=== PATIENT | male | born 1980 | race American Indian/Alaskan Native ===

== ENCOUNTER 2016-12-21 20:21 | Inpatient (IN) | payer BC ==
[2016-12-21 20:21] VITALS: PULSE 78; BMI 46.2
--- NOTE | 2016-12-21 21:20 | ED PDOC ---
Arrival/HPI - General Chief Complaint: Abdominal Pain Time Seen by Provider: 12/21/16 21:00 Historian: Patient - History of Present Illness Narrative History of Present Illness (Text): 12/21/16 21:20 A 36 year old male, whose past medical history includes hypertension, hyperlipidemia, CHF, pancreatitis and renal insufficiency, presents to the emergency department complaining of urinary retention for 1 day. Patient notes nausea, non-bilious non-bloody vomiting, loss of appetite and chronic diffuse abdominal pain. Patient reports his symptoms feel similar in quality to previous pancreatitis flare ups. Patient denies any fever, diarrhea, chest pain , shortness of breath or any other complaints. PMD: Dr. Santiago Past Medical History - Provider Review Nursing Documentation Reviewed: Yes - Past History Past History: Non-Contributing - Infectious Disease Hx of Infectious Diseases: None - Tetanus Immunization Tetanus Immunization: Unknown - Cardiac Hx Cardiac Disorders: Yes (cardiomyopathy) Hx Congestive Heart Failure: Yes Hx Hypertension: Yes - Pulmonary Hx Respiratory Disorders: No Hx Asthma: No Hx Sleep Apnea: No - Neurological Hx Neurological Disorder: No - HEENT Hx HEENT Disorder: No - Renal Hx Renal Disorder: Yes Hx Kidney Stones: Yes Hx Renal Failure: Yes - Endocrine/Metabolic Hx Endocrine Disorders: No Hx Diabetes Mellitus Type 2: No - Hematological/Oncological Hx Blood Disorders: No - Integumentary Hx Dermatological Disorder: No - Musculoskeletal/Rheumatological Hx Musculoskeletal Disorders: No Hx Falls: No - Gastrointestinal Hx Gastrointestinal Disorders: Yes Hx Diverticulitis: Yes Hx Gastroesophageal Reflux: Yes Hx Pancreatitis: Yes - Genitourinary/Gynecological Hx Genitourinary Disorders: Yes (urinary retention) - Psychiatric Hx Psychophysiologic Disorder: No Hx Substance Use: No - Past Surgical History Past Surgical History: No Previous - Surgical History Hx Cholecystectomy: Yes - Anesthesia Hx Anesthesia: Yes Hx Anesthesia Reactions: No Hx Malignant Hyperthermia: No - Suicidal Assessment Feels Threatened In Home Enviroment: No Family/Social History - Physician Review Nursing Documentation Reviewed: Yes Family/Social History: No Known Family HX Smoking Status: Heavy Smoker > 10 Cigarettes Daily Hx Alcohol Use: No Hx Substance Use: No Hx Substance Use Treatment: No Allergies/Home Meds Allergies/Adverse Reactions: Allergies LUZ Inhibitors Allergy (Verified 11/09/16 12:51) ANGIOEDEMA Home Medications: Home Meds Medication Instructions Recorded Confirmed Pantoprazole Sodium [Protonix] 40 mg PO DAILY 02/10/12 12/21/16 Carvedilol [Coreg] 12.5 mg PO BID 05/02/12 12/21/16 Hydromorphone HCl [Dilaudid] 2 mg PO TID PRN 12/07/15 12/21/16 Furosemide [Lasix] 40 mg PO DAILY 04/29/16 12/21/16 Spironolactone [Aldactone] 25 mg PO DAILY 04/29/16 12/21/16 Amylase/Lipase/Protease [Pancrease 3 tab PO AC 10/07/16 12/21/16 [id number] [id number] U] Valsartan 40 mg PO DAILY 10/07/16 12/21/16 Famotidine [Pepcid] 20 mg PO DAILY 11/03/16 12/21/16 Review of Systems - Physician Review All systems were reviewed & negative as marked: Yes - Review of Systems Constitutional: absent: Fevers Respiratory: absent: SOB Cardiovascular: absent: Chest Pain Gastrointestinal: Abdominal Pain, Nausea, Vomiting, Appetite Changes. absent: Diarrhea Genitourinary Male: Other (Urinary retention) Physical Exam Vital Signs Reviewed: Yes Vital Signs Temp Pulse Resp BP Pulse Ox 12/22/16 00:21 98.2 F 67 17 133/86 98 12/21/16 20:34 97.5 F L 66 18 142/84 99 Temperature: Afebrile Blood Pressure: Normal Pulse: Regular Respiratory Rate: Normal Appearance: Positive for: Well-Appearing, Non-Toxic, Comfortable, Other (Obese male) Pain Distress: None Mental Status: Positive for: Alert and Oriented X 3 - Systems Exam Head: Present: Atraumatic, Normocephalic Pupils: Present: PERRL Extroacular Muscles: Present: EOMI Conjunctiva: Present: Normal Mouth: Present: Moist Mucous Membranes Neck: Present: Normal Range of Motion Respiratory/Chest: Present: Clear to Auscultation, Good Air Exchange. No: Respiratory Distress, Accessory Muscle Use Cardiovascular: Present: Regular Rate and Rhythm, Normal S1, S2. No: Murmurs Abdomen: Present: Normal Bowel Sounds. No: Tenderness, Distention, Peritoneal Signs Back: Present: Normal Inspection Upper Extremity: Present: Normal Inspection. No: Cyanosis, Edema Lower Extremity: Present: Normal Inspection. No: Edema Neurological: Present: GCS=15, CN II-XII Intact, Speech Normal Skin: Present: Warm, Dry, Normal Color. No: Rashes Psychiatric: Present: Alert, Oriented x 3, Normal Insight, Normal Concentration Medical Decision Making ED Course and Treatment: 12/21/16 21:20 Impression: A 36 year old male with urinary retention. Patient notes nausea, vomiting, loss of appetite and diffuse abdominal pain. Plan: -- Labs -- Blood and Urine culture -- Urinalysis -- Morphine, Pepcid, IV fluids and Zofran -- Reassess and disposition Progress Notes: 12/21/16 22:15 Labs reviewed, pt with chronic renal insufficiency at baseline. Lipase normal. Dr. Pamela greene. pt states morphine didnt help, asking for dilaudid. 12/21/16 22:[address] Santiago, who is aware and agrees with plan. Accepts pt in to her service. Pt admitted [facility] for intractable abdominal pain. Pt is no acute distress. Discussed results and hospital admission plan with pt, who is aware and verbalizes understanding. 12/22/16 16:11 - Lab Interpretations Lab Results: 12/21/16 21:20 12/21/16 21:20 Lab Results 12/21/16 21:20: WBC 8.6, RBC 4.57, Hgb 15.5, Hct 44.8, MCV 98.0, MCH 33.9, MCHC 34.6, RDW 14.0, Plt Count 286, MPV 9.8, Gran % 78.7 H, Lymph % (Auto) 14.1 L, Blount % (Auto) 7.1 H, Eos % (Auto) 0.1 L, Baso % (Auto) 0.0, Gran # 6.79 H, Lymph # 1.2, Blount # 0.6, Eos # 0.0, Baso # 0.00, Sodium 136, Potassium 4.4, Chloride 98, Carbon Dioxide 27, Anion Gap 15, BUN 29 H, Creatinine 2.0 H, Est GFR ( Amer) 45, Est GFR (Non-Af Amer) 38, Random Glucose 121 H, Calcium 10.7 H, Total Bilirubin 0.8, AST 32, ALT 19, Alkaline Phosphatase 83, Total Protein 9.8 H, Albumin 4.9 H, Globulin 4.9, Albumin/Globulin Ratio 1.0 L, Lipase 279 I have reviewed the lab results: Yes - Medication Orders Current Medication Orders: Acetaminophen (Tylenol 325mg Tab) 650 mg PO Q6H PRN PRN Reason: Fever >100.4 F Carvedilol (Coreg) 12.5 mg PO BID [facility] Last Admin: 12/22/16 09:52 Dose: 12.5 MG Hydromorphone HCl (Dilaudid) 2 mg IVP Q4H PRN PRN Reason: Pain, moderate (4-7) Last Admin: 12/22/16 15:58 Dose: 2 MG MAR Pain Assessment Document 12/22/16 15:58 TAV (Rec: 12/22/16 15:59 TAV [id number]) Pain Reassessment Is this a pain reassessment? No Presence of Pain Presence of Pain Yes Pain Scale Used Pain Scale Used Numeric Location Upper or Lower Lower Pain Location Body Site Abdomen Back Description Description Constant Intensity of Pain at present 8 Pain Behavior Moaning Guarding Aggravating Factors Changing Position Alleviating Factors/Management Medication Techniques Alleviating Factors Medication IVP Administration Document 12/22/16 15:58 TAV (Rec: 12/22/16 15:59 TAV [id number]) Charges for Administration # of IVP Administrations 1 Sodium Chloride (Sodium Chloride 0.45%) 1,000 mls @ 125 mls/hr IV .Q8H [facility] Last Admin: 12/22/16 16:03 Dose: 125 MLS/HR eMAR Start Stop Document 12/22/16 16:03 TAV (Rec: 12/22/16 16:03 TAV [id number]) Intravenous Solution Start Date 12/22/16 Start Time 16:03 Ondansetron HCl (Zofran Inj) 4 mg IVP Q6H PRN PRN Reason: Nausea/Vomiting Last Admin: 12/22/16 15:59 Dose: 4 MG IVP Administration Document 12/22/16 15:59 TAV (Rec: 12/22/16 15:59 TAV [id number]) Charges for Administration # of IVP Administrations 1 Pantoprazole Sodium (Protonix Inj) 40 mg IVP DAILY [facility] Last Admin: 12/22/16 09:53 Dose: 40 MG IVP Administration Document 12/22/16 09:53 TAV (Rec: 12/22/16 09:53 TAV [id number]) Charges for Administration # of IVP Administrations 1 Spironolactone (Aldactone) 25 mg PO DAILY [facility] Last Admin: 12/22/16 09:53 Dose: 25 MG Zolpidem Tartrate (Ambien) 10 mg PO HS [facility] PRN Reason: Protocol Last Admin: 12/22/16 00:18 Dose: 10 MG Behavioural Document 12/22/16 00:18 MR (Rec: 12/22/16 00:18 MR [id number]) Maintenance Maintenance Dose Yes Discontinued Medications Famotidine (Pepcid) 20 mg IVP STAT STA Stop: 12/21/16 21:22 Last Admin: 12/21/16 21:46 Dose: 20 MG IVP Administration Document 12/21/16 21:46 MR (Rec: 12/21/16 21:46 MR [id number]) Charges for Administration # of IVP Administrations 1 Hydromorphone HCl (Dilaudid) 1 mg IVP STAT STA Stop: 12/21/16 22:29 Last Admin: 12/21/16 22:40 Dose: 1 MG IVP Administration Document 12/21/16 22:40 MR (Rec: 12/21/16 22:40 MR [id number]) Charges for Administration # of IVP Administrations 1 Hydromorphone HCl (Dilaudid) 2 mg IVP Q4H PRN PRN Reason: Pain, moderate (4-7) Hydromorphone HCl (Dilaudid) 1 mg IVP Q4H PRN PRN Reason: Pain, moderate (4-7) Last Admin: 12/22/16 12:18 Dose: 1 MG MAR Pain Assessment Document 12/22/16 12:18 TAV (Rec: 12/22/16 12:19 [facility] Pain Reassessment Is this a pain reassessment? No Presence of Pain Presence of Pain Yes Pain Scale Used Pain Scale Used Numeric Location Left, Right or Bilateral Left Upper or Lower Lower Pain Location Body Site Back Description Description Constant Intensity of Pain at present 8 Pain Behavior Moaning Aggravating Factors Changing Position Alleviating Factors/Management Medication Techniques Alleviating Factors Medication IVP Administration Document 12/22/16 12:18 TAV (Rec: 12/22/16 12:19 TAV [facility] Charges for Administration # of IVP Administrations 1 Re-Assess: MAR Pain Assessment Document 12/22/16 13:18 TAV (Rec: 12/22/16 14:21 TAV [email or web address]) Pain Reassessment Is this a pain reassessment? Yes Presence of Pain Presence of Pain No Sodium Chloride (Sodium Chloride 0.9%) 1,000 mls @ 150 mls/hr IV .Q6H40M [facility] Last Admin: 12/21/16 21:46 Dose: 150 MLS/HR eMAR Start Stop Document 12/21/16 21:46 MR (Rec: 12/21/16 21:46 MR [id number]) Intravenous Solution Start Date 12/21/16 Start Time 21:46 Sodium Chloride (Sodium Chloride 0.45%) 1,000 mls @ 100 mls/hr IV .Q10H [facility] Morphine Sulfate (Morphine) 4 mg IVP STAT STA Stop: 12/21/16 21:22 Last Admin: 12/21/16 21:45 Dose: 4 MG [facility] Pain Assessment Document 12/21/16 21:45 MR (Rec: 12/21/16 21:46 MR [id number]) Pain Reassessment Is this a pain reassessment? No Sleep Is patient sleeping during reassessment? No Presence of Pain Presence of Pain Yes Pain Scale Used Pain Scale Used Numeric Location Pain Location Body Site Abdomen Back Description Description Constant Intensity of Pain at present 10 Duration Monday Pain Behavior Facial Grimacing Alleviating Factors/Management Medication Techniques Alleviating Factors Medication IVP Administration Document 12/21/16 21:45 MR (Rec: 12/21/16 21:46 MR [id number]) Charges for Administration # of IVP Administrations 1 Ondansetron HCl (Zofran Inj) 4 mg IV ONCE ONE Stop: 12/21/16 21:22 Last Admin: 12/21/16 21:46 Dose: 4 MG eMAR Start Stop Document 12/21/16 21:46 MR (Rec: 12/21/16 21:46 MR [id number]) Intravenous Solution Start Date 12/21/16 Start Time 21:46 End Date 12/21/16 End time 21:46 Total Infusion Time 0 - Scribe Statement The provider has reviewed the documentation as recorded by the Scribe Analilia Yang Provider Scribe Attestation: All medical record entries made by the Scribe were at my direction and personally dictated by me. I have reviewed the chart and agree that the record accurately reflects my personal performance of the history, physical exam, medical decision making, and the department course for this patient. I have also personally directed, reviewed, and agree with the discharge instructions and disposition. Disposition/Present on Arrival - Present on Arrival Any Indicators Present on Arrival: No History of DVT/PE: No History of Uncontrolled Diabetes: No Urinary Catheter: No History of Decub. Ulcer: No History Surgical Site Infection Following: None - Disposition Have Diagnosis and Disposition been Completed?: Yes Diagnosis: Renal insufficiency, Pancreatitis, chronic, Abdominal pain Disposition: HOSPITALIZED Disposition Time: 23:00 Patient Plan: Admission Patient Problems: Current Active Problems Problem Status Diagnosed Dehydration Acute Nephrolithiasis Acute Pancreatitis, chronic Acute Renal failure Acute Renal insufficiency Acute Condition: STABLE
[2016-12-21] MEDS ORDERED: Morphine 4 mg/ml ISec IVP STA (21:21)
[2016-12-21] MEDS ORDERED: Sodium Chloride 0.9% 1,000 ML IV SCH (21:30)
[2016-12-21 21:47] LABS: ADD MANUAL DIFF? NO
[2016-12-21 21:51] LABS: EOS % 0.1 % (1.5-5.0); GRAN # 6.79 (1.4-6.5); GRAN % 78.7 % (50.0-68.0); HEMATOCRIT 44.8 % (42.0-52.0); LYMPH # 1.2 (1.2-3.4); LYMPH % 14.1 % (22.0-35.0); MEAN CORPUSCULAR HEMOGLOBIN 33.9 pg (25.0-35.0); MEAN CORPUSCULAR HGB CONC 34.6 g/dl (31.0-37.0); MEAN PLATELET VOLUME 9.8 fl (7.0-11.0); MONO # 0.6 (0.1-0.6); MONO % 7.1 % (1.0-6.0); PLATELET COUNT 286 [, 10^3/uL] (120.0-450.0); WHITE BLOOD COUNT 8.6 [, 10^3/ul] (4.5-11.0)
[2016-12-21 22:02] LABS: BILIRUBIN,TOTAL 0.8 mg/dL (0.2-1.3); CALCIUM 10.7 mg/dL (8.4-10.5); POTASSIUM 4.4 mmol/L (3.6-5.0); TOTAL PROTEIN 9.8 g/dL (5.8-8.3)
[2016-12-21] MEDS ORDERED: HYDROmorphone 1 mg/ml ISec IVP STA (22:28)
[2016-12-21] MEDS ORDERED: HYDROmorphone 2 mg/ml ISec IVP PRN (23:14)
[2016-12-21] MEDS ORDERED: Sodium Chloride 0.45% 1,000 ML IV SCH (23:15)
[2016-12-22] MEDS: Sodium Chloride 0.45% 1,000 ML IV SCH ×3 (00:12→16:03)
[2016-12-22] MEDS: HYDROmorphone 1 mg/ml ISec IVP PRN ×4 (00:18→12:18)
[2016-12-22 00:55] LABS: URINE APPEARANCE SLIGHT-CLOUDY (CLEAR); URINE BILIRUBIN MODERATE (NEGATIVE); URINE BLOOD LARGE (NEGATIVE); URINE COLOR DARK YELLOW (YELLOW); URINE GLUCOSE (UA) NEGATIVE (NEGATIVE); URINE KETONE TRACE mg/dL (NEGATIVE); URINE LEUKOCYTE ESTERASE TRACE Leu/uL (NEGATIVE); URINE PROTEIN 30 mg/dL (<30 mg/dL); URINE UROBILINOGEN 0.2 E.U./dL (<1 E.U./dL)
[2016-12-22 01:04] LABS: URINE BACTERIA OCC (NEG); URINE EPITHELIAL CELLS 0 - 2 /hpf (0-5); URINE RBC 15 - 20 /hpf (0-2)
[2016-12-22 07:39] LABS: BILIRUBIN,TOTAL 0.8 mg/dL (0.2-1.3); CALCIUM 9.8 mg/dL (8.4-10.5); POTASSIUM 4.3 mmol/L (3.6-5.0); TOTAL PROTEIN 8.4 g/dL (5.8-8.3)
--- NOTE | 2016-12-22 08:22 | HP ---
The patient is a 36-year-old black male, known to me from multiple previous admissions. He came to [facility] because of epigastric and abdominal pain. He was complaining of nausea. No diarrhea. He states he has been throwing up and has not been making much urine for the last 24 hours. Because of a previous experience, he was concerned , so he came to Emergency Room. Denies any fever or chills. No history of hemoptysis, no hematemesis, no rectal bleeding. He had similar feeling upon last admission too. PAST MEDICAL HISTORY: Significant for: 1. Recurrent pancreatitis, secondary to alcohol abuse. 2. Nonischemic cardiomyopathy. 3. Morbid obesity. 4. Hypertension. 5. Chronic bilateral leg edema. 6. Status post acute renal failure. ALLERGIES: HE IS ALLERGIC TO LISINOPRIL, ENALAPRIL, GIVES HIM LIP SWELLING. SOCIAL HISTORY: He is single, history of smoking, history of alcohol abuse in the past, uses prescri ption narcotics for his pain flareup. REVIEW OF SYSTEMS: Significant for decreased urination. Complained of nausea and epigastric discomf ort. PHYSICAL EXAMINATION: GENERAL: Not in any acute distress. VITAL SIGNS: He is afebrile, pulse 66, respirations 18, blood pressure 142/84. LUNGS: Bilateral fair airflow, no rhonchi or crackle. HEART: S1, S2 audible. ABDOMEN: Soft, obese, nontender, no rebound, no guarding. NEUROLOGIC: The patient is awake and alert, able to communicate. LABORATORY EXAMINATION: Sodium 136, potassium 4.4, chloride 98, CO2 27, BUN 29, creatinine 2.0, bloo d sugar of 121, calcium 10.7, total protein 9.8, albumin 4.9, globulin 4.9. ASSESSMENT: 1. Acute on chronic renal insufficiency. 2. Recurrent pancreatitis. 3. Hypertension. 4. Morbid obesity. 5. Status post recent cholecystectomy. PLAN: We will admit the patient. We will keep him n.p.o., give IV fluid. We will monitor electroly juan, CBC, CMP in a.m. Urology consult, nephrology consult and GI consult has been requested. Follow up his electrolytes in a.m. Sammy Santiago MD cc: [phone] TT: 12/22/2016 08:21:48 en
--- NOTE | 2016-12-22 13:49 | PN ---
DATE: 12/22/2016 The patient is a 36-year-old, seen and examined, doing a little better. He still has abdominal disco mfort, upper quadrant, right lower quadrant and left lower quadrant; does not feel hungry, not making much urine in spite of being on IV fluid. PHYSICAL EXAMINATION: VITAL SIGNS: He is afebrile, pulse 69, respirations 20, blood pressure 127/84. LUNGS: Bilateral fair airflow, no rhonchi or crackle. HEART: S1, S2 audible. ABDOMEN: Soft, obese, nontender, no rebound, no guarding. Deep palpable epigastric and right lower quadrant and left lower quadrant discomfort. NEUROLOGIC: The patient is awake and alert, communicative. LABORATORY EXAMINATION: Sodium 135, potassium 4.3, chloride 100, CO2 25, BUN 33, creatinine 2.1, blo od sugar of 98, calcium 10.7. Urinalysis showed moderate bilirubin, blood is large, trace ketones. ASSESSMENT: 1. Recurrent pancreatitis. 2. Acute on chronic renal failure. 3. Dehydration, prerenal azotemia. 4. Nonischemic cardiomyopathy. 5. Recent cholecystectomy. PLAN: We will continue patient on current IV fluids. Continue on his usual medications. I discusse d with Dr. Choe. The patient has appointment with ____ for second opinion. In the meantime, we will continue the patient on Zofran as needed. He is on Protonix. We will continue that. Bunny nue him on analgesic. Urology and nephrology consult have been requested. Sammy Santiago MD cc: [phone] TT: 12/22/2016 13:48:56 Confirmation # [id number] Dictation # [id number] tn
[2016-12-22] MEDS: HYDROmorphone 2 mg/ml ISec IVP PRN ×2 (15:58→20:02)
--- NOTE | 2016-12-22 21:11 | CON ---
DATE: 12/22/2016 CHIEF COMPLAINT: The patient not urinating for extended periods of time. HISTORY OF PRESENT ILLNESS: This is a 36-year-old male who has been admitted to the hospital multipl e times, according to the nurses, with similar complaints, usually pancreatitis and a complaint of no t having voided for more than 24 hours. He recently, on this admission, was admitted through the ER, saying that he had not urinated for 24 hours. He had no fever or chills. He complained of some abd ominal pain and was admitted, a Linares catheter apparently was placed. There was no record of how muc h was obtained when it was placed in the ER. PAST MEDICAL HISTORY: Significant for cardiomyopathy, recurrent pancreatitis, morbid obesity, renal insufficiency with baseline creatinine of 3 and a BUN in the 20s, and hypertension. ALLERGIES: HE HAS ALLERGIES TO LISINOPRIL, AND ENALAPRIL. SOCIAL HISTORY: He has a history of alcohol use in the past to access, history of smoking. FAMILY HISTORY: Noncontributory. REVIEW OF SYMPTOMS: No symptoms referable to the head, eyes, ears, nose, or throat. No current card iac or respiratory symptoms. No current gastrointestinal symptoms, particularly nausea or vomiting. Linares catheter is indwelling. PHYSICAL EXAMINATION: VITAL SIGNS: Show him to be afebrile, pulse 76, blood pressure 112/68. He is morbidly obese. Respi rations 20. ABDOMEN: There is CVA pain. No hepatosplenomegaly, rebound, or guarding. No suprapubic fullness. GENITALIA: Scrotum, testicles, cord, and epididymis normal. The Linares is anchored incorrectly to th e thigh, under tension with the disk that comes with the Linares catheter, causing the patient's discom fort and not allowing him to move his leg. He showed the nurses. The disk was removed and I told hi m to tape the tubing of the leg bag to give more redundancy so he is not uncomfortable. LABORATORY DATA: Shows a creatinine of 2.1 with a BUN of 33. His liver enzymes are normal. His alb umin is normal at 4.2. White count is also normal at 8600 with normal hemoglobin. The patient has h ad prior CAT scans, ultrasounds. IMPRESSION: He was seen in the office by my partner, approximately 6 weeks ago, where he had not sup posedly voided for 1 week and had 106 mL in his bladder. I do not think this urinary retention. I d o not think he needs a Linares catheter. I told the nurses to discontinue the Linares catheter in the a. m. He has had renal ultrasounds and CAT scans done last month, which showed nonobstructing stones. I do not think this is on the basis of obstruction. I recommend a renal consult. Also discontinue t he Linares catheter in a.m. and the patient should not have a Linares catheter placed without having a bl adder scan first showing more than 300 mL. I do not think he needs it. In terms of why he is not ma vanessa significant urine, whether this is anasarca or whether it is due to his cardiac issues, can be e valuated by renal and suggested a Nephrology consult. Juan José Lange MD cc: [phone] TT: 12/22/2016 21:11:01 Confirmation # [id number] Dictation # [id number] ln
[2016-12-23] MEDS: Sodium Chloride 0.45% 1,000 ML IV SCH ×2 (00:05→09:16)
[2016-12-23] MEDS: HYDROmorphone 2 mg/ml ISec IVP PRN ×6 (00:06→21:44)
--- NOTE | 2016-12-23 09:23 | CON ---
DATE: 12/22/2016 REASON FOR CONSULTATION: Abdominal pain. HISTORY OF PRESENT ILLNESS: This is a 36-year-old patient with a past medical history of chronic abd ominal pain, possible gastroparesis, pancreatitis, history of ETOH in the past. Admitted with worsen ing abdominal pain, weakness. Nausea, unable to keep food down. The patient was found to be acute k idney injury with creatinine elevated at 2.0 and GI consult was requested to evaluate for abdominal p ain. This patient is well known to our service with multiple admissions in the hospital. The patien t was also followed at the [place]. The patient has an appointment to see Dr. Gabriel at [facility] on Monday. The patient also has a history of chronic edema. ALLERGIES: HE IS ALLERGIC TO LISINOPRIL, ENALAPRIL. SOCIAL HISTORY: Presently, no smoking, no alcohol. History of ETOH in the past. REVIEW OF SYSTEMS: Positive as above. Other systems reviewed. PHYSICAL EXAMINATION: GENERAL: The patient is lying on the bed, not in acute distress. VITAL SIGNS: Temperature is 98.8, blood pressure is 127/84. HEENT: Atraumatic, anicteric. NECK: Supple. HEART: S1, S2 heard. LUNGS: Bilateral air entry present. ABDOMEN: Soft. The patient had multiple imaging studies in the past. IMPRESSION: This is a 36-year-old patient with possible chronic pancreatitis, status post cholecyste ctomy for gallstones, history of chronic anemia, possible gastroparesis, admitted with nausea, vomiti ng and abdominal pain with acute kidney injury. The reasonable thing to consider at this point is __ ___ proton pump inhibitor. The patient would need to be followed at the tertiary care institution in view of the chronicity of the symptoms and follow up there to further evaluate the symptomatology. Souleymane Choe MD cc: [phone] TT: 12/23/2016 09:22:40 Confirmation # [id number] Dictation # [id number] en
[2016-12-23 12:37] LABS: CALCIUM 9.3 mg/dL (8.4-10.5); POTASSIUM 3.8 mmol/L (3.6-5.0); TOTAL PROTEIN 7.6 g/dL (5.8-8.3)
--- NOTE | 2016-12-23 12:57 | DS ---
SUBJECTIVE: The patient is a 36-year-old seen and examined, does not have significant pain; however, he does not have good appetite, tolerated clear liquid. PHYSICAL EXAMINATION: VITAL SIGNS: He is afebrile, pulse 62, respirations 20, blood pressure 125/92. LUNGS: Bilateral fair airflow, no rhonchi or crackle. HEART: S1, S2 audible. No murmur. ABDOMEN: Soft, nontender, no rebound, no guarding. NEUROLOGIC: He is awake and alert, communicative. EXTREMITIES: Bilateral legs, no edema. LABORATORY: Test is pending. ASSESSMENT: 1. Recurrent pancreatitis. 2. Acute on chronic renal failure. 3. Hypertension. 4. Morbid obesity. 5. Status post cholecystectomy. PLAN: We will start him on 2 g sodium, pureed diet and see the response. His catheter has been daisy erik after he voided, and if he voids and his creatinine is better, we can discharge him. He has an a ppointment with on Monday morning. He has been given all the information to get a second o kate and further management. Sammy Santiago MD cc: [phone] TT: 12/23/2016 12:57:15 liam
--- NOTE | 2016-12-23 14:25 | CON ---
DATE: 12/23/2016 The patient admitted for Dr. Santiago. REFERRING PHYSICIAN: Dr. Santiago REASON FOR CONSULTATION: Evaluation of a patient known to us, who presents with acute renal failure in the setting of abdominal pain, nausea, vomiting and difficulty urinating. HISTORY OF PRESENT ILLNESS: The patient is a 36-year-old black male with a history of acute pancreat itis, history of chronic pancreatitis, history of chronic abdominal pain, history of multiple admissi ons for acute renal failure thought to be secondary to volume depletion, history of nonischemic cardi omyopathy, ejection fraction 40% with mitral regurgitation on diuretic therapy, history of morbid obe sity, history of hypertension, history of nephrosclerosis, history of a complex cystic mass left kidn ey being followed by urology, status post recent gallbladder surgery. The patient once again present ed to the hospital with abdominal pain, nausea and vomiting. He was noted to have an elevated BUN an d creatinine of 29/2.0. The patient had received IV fluid hydration. A Linares catheter was placed. His sodium level had dropped from 136 to 130. His BUN has dropped from 29 to 27. Creatinine is down to 1.7. The patient's baseline creatinine is in the 1.3-1.4 range. The patient is concerned about his inability to urinate. His Linares catheter was removed. PAST MEDICAL HISTORY: Significant for acute on chronic pancreatitis, history of acute renal failure secondary to volume depletion, all these resolved. History of nonischemic cardiomyopathy, ejection f raction 47% with mitral regurgitation, history of obesity, hypertension, nephrolithiasis, history of a cystic mass left kidney and history of gallbladder surgery. MEDICATIONS AT HOME: Include that of valsartan, Aldactone, Protonix, Zofran, Dilaudid, Lasix, Pepcid , Coreg, and pancreatic enzymes. ALLERGIES: THE PATIENT IS ALLERGIC TO LUZ INHIBITORS. HE DEVELOPS ANGIOEDEMA. MEDICATIONS PRESENTLY IN HOSPITAL: Include that of half normal saline 125 mL an hour, Aldactone, Amb ien, Coreg, Dilaudid, Tylenol p.r.n. and Zofran p.r.n. SOCIAL HISTORY: The patient continues to smoke cigarettes. He smokes half a pack per day. He no lo nger drinks alcohol. The patient works for the [employer], but has been out of work because of illness. FAMILY HISTORY: Both parents are alive. Father has COPD secondary to cigarette smoking. The patien t does not know his mother's condition. REVIEW OF SYSTEMS: GENERAL: The patient states that his weight since last hospitalization is down 14 pounds secondary t o decreased appetite. ENT: Denies any hearing or visual problems. PULMONARY: No shortness of breath at rest. No history of asthma, bronchitis or pneumonia. CARDIAC: History of nonischemic cardiomyopathy, history of mitral regurgitation. Ejection fraction is 47%. GASTROINTESTINAL: Positive for chronic abdominal pain. Chronic pancreatitis, history of nausea and vomiting with exacerbations of his pancreatitis. GENITOURINARY: The patient states difficulty making urine. A Linares catheter was placed during the f irst part of the hospitalization and has been removed. The patient is not voiding as of yet. He has no history of significant chronic kidney disease. Baseline creatinine is in the 1.3 range. He does elevate his BUN and creatinine when he comes in volume depleted. ENDOCRINE: No history of diabetes. MUSCULOSKELETAL: No issues. NEUROLOGIC: No history of TIA, CVA, seizures or syncope. HEMATOLOGIC AND ONCOLOGIC: History of mild anemia in the past. PSYCHIATRIC: History is negative. PHYSICAL EXAMINATION: GENERAL: The patient is currently seen on 5R. He is sitting up in bed. He is distressed that he is not able to void since the Linares catheter was removed. He remains on hypotonic IV fluid hydration. VITAL SIGNS: Blood pressure is 125/92 ranging down to 112/68. Temperature is 98.1, pulse is 62. Re spiratory rate is 20 with an oxygen saturation of 99%. HEENT: Shows him to be normocephalic, atraumatic. Conjunctivae are pink. Sclerae are nonicteric. Pupils are equal, reactive to light and accommodation. Extraocular muscles are intact. Posterior ph arynx is normal. NECK: Supple, no neck vein distention, no thyromegaly, no lymphadenopathy, no bruits. CHEST: Clear to auscultation and percussion with no rales, no rhonchi, no wheezing. CARDIOVASCULAR: Shows a regular rate and rhythm with mitral regurgitation. No S3, no S4, no rub. ABDOMEN: Soft. Bowel sounds normal. Morbid obesity. No distention. He has mild tenderness on pal pation in all 4 quadrants. No rebound, no guarding. BACK: No CVAT, no spinal tenderness. EXTREMITIES: Show no cyanosis, no clubbing, no edema. Distal lower extremity pulses are 1-2+ bilate rally. NEUROLOGIC: Shows him to be alert, oriented x 3 with no gross focal, motor or sensory deficits. IMAGING: No imaging studies were done during present hospitalization. LABORATORIES: CBC: White blood cell count 8.6, hemoglobin 15.5 with a platelet count of 286,000. C oags were not done during present admission. Chemistries: Sodium was 136 on admission, it is down t o 130 presently. BUN is down from 29, as high as 33, down to 27 today. Creatinine 2.0, down to 1.7. Baseline creatinine is in the 1.3-1.4 range. Glucose is normal. Calcium 9.3, down from 10.7 on ad mission. Liver enzymes are normal. Albumin is 3.8. Lipase was 279 on admission. Amylase was not d one. Urinalysis showed trace ketones, blood in the urine, possibly secondary to Linares catheter. No significant urine white blood cells. MICROBIOLOGY: Urine cultures were negative. ASSESSMENT: 1. Once again, patient presents with mild acute renal failure superimposed on a patient with possibl e chronic kidney disease stage I/II. His baseline creatinine is in the 1.3-1.4 range. This is in th e setting of nausea, vomiting, abdominal pain, and decreased p.o. intake plus the continued intake of diuretic therapy. The patient had been using Lasix and Aldactone at home. The patient had also bee n on angiotensin receptor chava. The patient requires diuretic therapy for his nonischemic cardiom yopathy to prevent edema and congestive heart failure. The patient's angiotensin receptor chava wa s held. His loop diuretic was held, however, he remains on Aldactone. The patient had received hypo tonic IV fluid hydration during the hospitalization. The patient has had this similar presentation m ultiple times in the past. He usually responds to IV fluid hydration. 2. Inability to make urine. The patient followed by urology. Linares catheter is out. Perhaps some bladder dysfunction. It is not renal failure that is causing the absence of urine. 3. History of acute on chronic pancreatitis. The patient has been seen by GI. History of alcohol u se in the past. 4. History of nonischemic cardiomyopathy, ejection fraction 47% with mitral regurgitation. The brad ent will need to remain on low dose diuretic therapy. He had been on combination therapy in the outp atient setting to prevent hypokalemia. He also remains on low-dose angiotensin receptor chava ther apy for afterload reduction and treatment of hypertension. 5. Past history of gastritis, duodenitis and diverticulitis. No apparent issue at this point in jose kim. 6. History of kidney stones, nonobstructive. No imaging studies done this time. History of a cysti c mass left kidney, being followed by urology. In all likelihood, he will have repeat radiographic s tudies done as an outpatient. 7. Hypertension. Blood pressure controlled on present medical therapy. 8. Hyponatremia, likely iatrogenic as patient had received hypotonic fluids during the hospitalizati on. PLAN: 1. Does not appear that patient will be discharged today. 2. I will start patient on normal saline at a lower rate to help correct the hyponatremia and to pre vent any volume overload. 3. The patient may remain off Lasix therapy until his BUN and creatinine fall back to normal. 4. The patient may remain on low dose Aldactone therapy. 5. Once his BUN and creatinine fall back to baseline range, creatinine of 1.3, patient may be restar bess back on angiotensin receptor chava therapy. 6. Monitor closely for urine output. If patient does not make any urine, perhaps bedside bladder ul trasound and replacement of a Linares catheter. This decision will be made by his urologist, Dr. Lange. 7. Continue to follow labs closely during hospitalization. 8. Case discussed with Dr. Santiago in detail. Sean Reich MD cc: [id number] TT: 12/23/2016 14:25:02 Confirmation # [id number] Dictation # [id number]
[2016-12-23] MEDS: Sodium Chloride 0.9% 1,000 ML IV SCH (15:03)
[2016-12-24] MEDS: HYDROmorphone 2 mg/ml ISec IVP PRN ×6 (01:38→22:44)
[2016-12-24] MEDS: Sodium Chloride 0.9% 1,000 ML IV SCH (01:40)
[2016-12-24 08:08] VITALS: RESP 20
[2016-12-24 08:37] LABS: ALB/GLOB RATIO 0.9 (1.1-1.8); ALKALINE PHOSPHATASE 61 U/L (38-133); ALT/SGPT 15 U/L (7-56); AST/SGOT 23 U/L (15-59); BILIRUBIN,TOTAL 0.7 mg/dL (0.2-1.3); BLOOD UREA NITROGEN 18 mg/dL (7-21); CARBON DIOXIDE 23 mmol/L (21-33); CHLORIDE 98 mmol/L (98-107); GFR AFRICAN-AMERICAN > 60; GLUCOSE,RANDOM 77 mg/dL (70-110); MAGNESIUM 1.9 mg/dL (1.7-2.2); PHOSPHOROUS 3.5 mg/dL (2.5-4.5); POTASSIUM 3.8 mmol/L (3.6-5.0); SODIUM 129 mmol/L (132-148); TOTAL PROTEIN 7.2 g/dL (5.8-8.3)
[2016-12-24 08:42] LABS: HEMATOCRIT 33.6 % (42.0-52.0); MEAN CELL VOLUME 96.8 fL (80.0-105.0); MEAN CORPUSCULAR HEMOGLOBIN 33.1 pg (25.0-35.0); MEAN CORPUSCULAR HGB CONC 34.2 g/dl (31.0-37.0); MEAN PLATELET VOLUME 10.3 fl (7.0-11.0); RED CELL DISTRIBUTION WIDTH 13.8 % (11.5-14.5)
--- NOTE | 2016-12-24 10:28 | CP.PCM.PN ---
Subjective - Date & Time of Evaluation Date of Evaluation: 12/24/16 Time of Evaluation: 10:25 - Subjective Subjective: seen and examined still w/ naussea receiving zofran Objective - Vital Signs/Intake and Output Vital Signs (last 24 hours): Temp Pulse Resp BP Pulse Ox 97.6 F 60 20 138/86 100 12/24/16 08:00 12/24/16 09:38 12/24/16 08:00 12/24/16 09:38 12/24/16 08:00 Intake and Output: 12/24/16 12/24/16 06:59 18:59 Intake Total 1680 Output Total 1275 Balance 405 - Medications Medications: Current Medications Acetaminophen (Tylenol 325mg Tab) 650 mg PO Q6H PRN PRN Reason: Fever >100.4 F Carvedilol (Coreg) 12.5 mg PO BID [facility] Last Admin: 12/24/16 09:38 Dose: 12.5 mg Hydromorphone HCl (Dilaudid) 2 mg IVP Q4H PRN PRN Reason: Pain, moderate (4-7) Last Admin: 12/24/16 09:39 Dose: 2 mg Sodium Chloride (Sodium Chloride 0.9%) 1,000 mls @ 80 mls/hr IV .[id number] [facility] Last Admin: 12/24/16 01:40 Dose: 80 mls/hr Ondansetron HCl (Zofran Inj) 4 mg IVP Q6H PRN PRN Reason: Nausea/Vomiting Last Admin: 12/24/16 09:39 Dose: 4 mg Pantoprazole Sodium (Protonix Inj) 40 mg IVP DAILY [facility] Last Admin: 12/24/16 09:39 Dose: 40 mg Spironolactone (Aldactone) 25 mg PO DAILY [facility] Last Admin: 12/24/16 09:38 Dose: 25 mg Zolpidem Tartrate (Ambien) 10 mg PO HS [facility] PRN Reason: Protocol Last Admin: 12/23/16 22:49 Dose: 10 mg - Labs Labs: 12/24/16 08:03 12/24/16 08:03 - Constitutional Appears: Non-toxic - Head Exam Head Exam: ATRAUMATIC - Eye Exam Eye Exam: Normal appearance - ENT Exam ENT Exam: Normal Exam - Neck Exam Neck Exam: Normal Inspection - Respiratory Exam Respiratory Exam: NORMAL BREATHING PATTERN - Cardiovascular Exam Cardiovascular Exam: +S1, +S2 - GI/Abdominal Exam GI & Abdominal Exam: Normal Bowel Sounds - Extremities Exam Additional comments: no edema - Neurological Exam Neurological Exam: Alert, Oriented x3 - Psychiatric Exam Psychiatric exam: Normal Affect - Skin Skin Exam: Normal Color Assessment and Plan - Assessment and Plan (Free Text) Assessment: arf / pancreatitis / chf / anemia / hyponatremia Plan: JENNIFER resolving likely all prerenal Hyponatremia - likely an element of SIADH from nausea/vomitting. He is making more urine now - free water excretion should be improved. will check na again at 1 pm. if improving ok from my standpoint for discharge discussed w/ dr. santiago
[2016-12-24] MEDS: Amylase/Lipase/Protease 5,000 U ECC PO SCH ×2 (11:24→17:03)
--- NOTE | 2016-12-24 12:22 | PN ---
DATE: 12/24/2016 SUBJECTIVE: The patient is a 36-year-old, seen and examined, doing well, wants to eat. His pain see ms to be improving. He was able to void. PHYSICAL EXAMINATION: VITAL SIGNS: He is afebrile, pulse 55, respirations 20, blood pressure 138/86. LUNGS: Bilateral good airflow, no rhonchi or crackle. HEART: S1, S2 audible. No murmur. ABDOMEN: Soft, obese, nontender, no rebound, no guarding. NEUROLOGIC: He is awake and alert, communicative. LABORATORY EXAMINATION: WBC is 8.0, hemoglobin 11.5, hematocrit 33.6, platelets 196. Chemistry: So dium 129, potassium 3.8, chloride 98, CO2 23, BUN 18, creatinine 1.4. Blood sugar of 77. His urinal ysis shows moderate bilirubin, large blood, trace ketones. Cultures are negative. Blood cultures ar e negative. ASSESSMENT: 1. Recurrent pancreatitis. 2. Acute on chronic renal failure secondary to prerenal azotemia because of poor oral intake. 3. Status post cholecystectomy. 4. Morbid obesity. 5. Nonischemic cardiomyopathy. PLAN: We will continue patient on current medical treatment. We will continue on IV fluid. That chan s been reduced and we will start him on oral feeding if he tolerates. We will follow up his CBC and CMP in a.m. If his sodium improves and his creatinine clears up, he will be discharged in a.m. Sammy Santiago MD cc: [id number] TT: 12/24/2016 12:22:24 Confirmation # [id number] Dictation # [id number] tn
[2016-12-24 13:05] LABS: BLOOD UREA NITROGEN 16 mg/dL (7-21); CALCIUM 9.2 mg/dL (8.4-10.5); CARBON DIOXIDE 25 mmol/L (21-33); CHLORIDE 97 mmol/L (98-107); GFR AFRICAN-AMERICAN > 60; GLUCOSE,RANDOM 72 mg/dL (70-110); POTASSIUM 3.8 mmol/L (3.6-5.0); SODIUM 130 mmol/L (132-148)
[2016-12-25] MEDS: Sodium Chloride 0.9% 1,000 ML IV SCH (02:00)
[2016-12-25] MEDS: HYDROmorphone 2 mg/ml ISec IVP PRN ×4 (02:42→14:39)
[2016-12-25 07:00] LABS: HEMATOCRIT 33.6 % (42.0-52.0); MEAN CELL VOLUME 97.7 fL (80.0-105.0); MEAN CORPUSCULAR HEMOGLOBIN 33.4 pg (25.0-35.0); MEAN CORPUSCULAR HGB CONC 34.2 g/dl (31.0-37.0); MEAN PLATELET VOLUME 9.6 fl (7.0-11.0); RED CELL DISTRIBUTION WIDTH 13.8 % (11.5-14.5); WHITE BLOOD COUNT 6.8 [, 10^3/ul] (4.5-11.0)
[2016-12-25 07:20] LABS: ALKALINE PHOSPHATASE 59 U/L (38-133); ALT/SGPT 16 U/L (7-56); AST/SGOT 25 U/L (15-59); BILIRUBIN,TOTAL 0.4 mg/dL (0.2-1.3); BLOOD UREA NITROGEN 15 mg/dL (7-21); CALCIUM 8.8 mg/dL (8.4-10.5); CARBON DIOXIDE 26 mmol/L (21-33); CHLORIDE 98 mmol/L (98-107); GFR AFRICAN-AMERICAN > 60; GLUCOSE,RANDOM 97 mg/dL (70-110); SODIUM 133 mmol/L (132-148); TOTAL PROTEIN 7.2 g/dL (5.8-8.3)
[2016-12-25] MEDS: Amylase/Lipase/Protease 5,000 U ECC PO SCH ×2 (08:05→14:37)
--- NOTE | 2016-12-25 16:03 | DS ---
The patient is a 36-year-old, seen and examined lying in bed. He seems to be tolerating food. No na usea, vomiting, no diarrhea. PHYSICAL EXAMINATION: VITAL SIGNS: He is afebrile, pulse 64, respirations 20, blood pressure 120/68. LUNGS: Bilateral fair airflow, no rhonchi or crackle. HEART: S1, S2 audible. No murmur. ABDOMEN: Soft, nontender, no rebound, no guarding. NEUROLOGIC: He is awake and alert, communicative. LABORATORY EXAM: WBC 6.8, hemoglobin 11.5, hematocrit 33.6, platelet 207. Chemistry: Sodium 133, p otassium 4.0, chloride 98, CO2 26, BUN 15, creatinine 1.____, blood sugar of 97. ASSESSMENT AND PLAN: 1. Recurrent pancreatitis. 2. Acute renal failure, resolved. 3. Nonischemic cardiomyopathy. 4. Peptic ulcer disease. 5. Hypertension. 6. Hyponatremia. PLAN: The patient is currently tolerating food. Will discontinue IV fluid. Arrangement has been eulalio jewell to see Dr. Gabriel for a second opinion. He will be discharged home today and he will follow with Dr. Gabriel in the a.m. Sammy Santiago MD cc: [phone] TT: 12/25/2016 16:03:41 mt
[2016-12-25 16:15] VITALS: BP 125/84; PULSE 55; TEMP 98.4; O2SAT 98
--- NOTE | 2016-12-25 21:22 | PN ---
DATE: 12/25/2016 SUBJECTIVE: This patient is tolerating the diet, and abdominal pain, he states, is improving. The p atient is due to be discharged today. PHYSICAL EXAMINATION: VITAL SIGNS: Temperature 98.4, pulse 55, blood pressure is 125/84, respirations 20, O2 saturation 98 %. HEENT: Atraumatic, anicteric. NECK: Supple. HEART: S1, S2 heard. LUNGS: Bilateral air entry present. ABDOMEN: Soft. There is mild tenderness in the epigastric area. EXTREMITIES: No cyanosis, no clubbing. LABORATORY DATA: Hemoglobin 11.5, hematocrit 33.6, WBC 6.8, platelets 207. BUN is 15. Creatinine i s improved to 1.3. IMPRESSION: This is a 36-year-old patient with probable chronic pancreatitis, history of status post cholecystectomy, admitted with abdominal pain, acute kidney injury, on top of chronic kidney disease . The patient is clinically improving. The patient has an appointment to see at the [facility] regarding his pancreatitis and abdominal pain. The patient has been followed at the [facility] before. The patient did have a cholecystectomy for gallstones. [facility] and all the imaging studies are given to the patient. to continue to follow the patient an d suggest further management based on the clinical course. The patient is advised to follow up with the [facility] for another opinion regarding this chronic abdominal pain, pancreatitis. Adv ised to follow up in our office and advised to follow up with the Dr. Santiago. Souleymane Choe MD cc: [id number] TT: 12/25/2016 21:21:28 Confirmation # [id number] Dictation # [id number] [id number]
== END 2016-12-25 16:29 | disposition home or self-care (01) | DRG 439 ==
LOC: ED 20:21 → ERH 22:29 → 5RNO 12-22 02:35
PROVIDERS: ADMIT Internal Medicine; ATTEND Internal Medicine
DX: K86.1 Other chronic pancreatitis (principal); I42.8 Other cardiomyopathies; N17.9 Acute kidney failure, unspecified; Z68.42 Body mass index [BMI] 45.0-49.9, adult; E66.01 Morbid (severe) obesity due to excess calories; E87.1 Hypo-osmolality and hyponatremia; I12.9 Hypertensive chronic kidney disease with stage 1 through stage 4 chronic kidney disease, or unspecified chronic kidney disease; N18.2 Chronic kidney disease, stage 2 (mild); K27.9 Peptic ulcer, site unspecified, unspecified as acute or chronic, without hemorrhage or perforation; E86.0 Dehydration; Z88.8 Allergy status to other drugs, medicaments and biological substances; Z87.891 Personal history of nicotine dependence

== ENCOUNTER 2017-02-03 14:13 | Observation (INO) | payer BC ==
[2017-02-03 14:14] VITALS: PULSE 78
[2017-02-03 14:18] VITALS: BMI 47.5
[2017-02-03] MEDS ORDERED: Sodium Chloride 0.9% 1,000 ML IV STA ×2 (14:28→16:08)
--- NOTE | 2017-02-03 14:34 | ED PDOC ---
Arrival/HPI - General Chief Complaint: Abdominal Pain Time Seen by Provider: 02/03/17 14:25 Historian: Patient - History of Present Illness Narrative History of Present Illness (Text): 02/03/17 14:34 Patient is a 36 year old male whose past medical history includes recurrent pancreatitis, hypertension, and peptic ulcer disease, who presents to the emergency department with vomiting. Patient states he had a procedure by Dr. Gabriel at [facility] to "numbing his pancreas" and was told it would stop working after 2-3 months, but he also reports that he has followup with them again this month. Patient reports multiple episodes of vomiting and loose stool. He reports generalized abdominal pain consistent with prior episodes of pancreatitis. Also reports epistaxis that has now resolved. PMD: Dr. Santiago 02/03/17 15:39 Time/Duration: < week Symptom Onset: Gradual Symptom Course: Unchanged Modifying Factors (Text): None Associated Symptoms (Text): None Past Medical History - Provider Review Nursing Documentation Reviewed: Yes - Past History Past History: Non-Contributing - Infectious Disease Hx of Infectious Diseases: None - Tetanus Immunization Tetanus Immunization: Unknown - Cardiac Hx Cardiac Disorders: Yes (cardiomyopathy) Hx Congestive Heart Failure: Yes Hx Hypertension: Yes - Pulmonary Hx Respiratory Disorders: No Hx Asthma: No Hx Sleep Apnea: No - Neurological Hx Neurological Disorder: No - HEENT Hx HEENT Disorder: No - Renal Hx Renal Disorder: Yes Hx Kidney Stones: Yes Hx Renal Failure: Yes - Endocrine/Metabolic Hx Endocrine Disorders: No - Hematological/Oncological Hx Blood Disorders: No - Integumentary Hx Dermatological Disorder: No - Musculoskeletal/Rheumatological Hx Musculoskeletal Disorders: No - Gastrointestinal Hx Gastrointestinal Disorders: Yes Hx Diverticulitis: Yes Hx Gastroesophageal Reflux: Yes Hx Pancreatitis: Yes - Genitourinary/Gynecological Hx Genitourinary Disorders: Yes (urinary retention) - Psychiatric Hx Psychophysiologic Disorder: No Hx Substance Use: No - Past Surgical History Past Surgical History: No Previous - Surgical History Hx Cholecystectomy: Yes - Anesthesia Hx Anesthesia: Yes Hx Anesthesia Reactions: No Hx Malignant Hyperthermia: No - Suicidal Assessment Feels Threatened In Home Enviroment: No Family/Social History - Physician Review Nursing Documentation Reviewed: Yes Family/Social History: Unknown Family HX Smoking Status: Heavy Smoker > 10 Cigarettes Daily Hx Alcohol Use: No Hx Substance Use: No Hx Substance Use Treatment: No Allergies/Home Meds Allergies/Adverse Reactions: Allergies LUZ Inhibitors Allergy (Verified 11/09/16 12:51) ANGIOEDEMA Home Medications: Home Meds Medication Instructions Recorded Confirmed Pantoprazole Sodium [Protonix] 40 mg PO DAILY 02/10/12 02/03/17 Carvedilol [Coreg] 12.5 mg PO BID 05/02/12 02/03/17 Hydromorphone HCl [Dilaudid] 2 mg PO TID PRN 12/07/15 02/03/17 Furosemide [Lasix] 40 mg PO DAILY 04/29/16 02/03/17 Spironolactone [Aldactone] 25 mg PO DAILY 04/29/16 02/03/17 Amylase/Lipase/Protease [Pancrease 3 tab PO AC 10/07/16 12/21/16 26010 U-5000 U-[id number] U] Valsartan 40 mg PO DAILY 10/07/16 02/03/17 Famotidine [Pepcid] 20 mg PO DAILY 11/03/16 02/03/17 Review of Systems - Review of Systems Eyes: absent: Vision Changes ENT: Epistaxis (dried blood in R nare). absent: Hearing Changes Respiratory: absent: SOB, Cough, Sputum, Wheezing Cardiovascular: absent: Chest Pain, Palpitations Gastrointestinal: Abdominal Pain, Stool Changes, Diarrhea, Vomiting. absent: Constipation Genitourinary Male: absent: Dysuria Musculoskeletal: absent: Back Pain Skin: absent: Rash Neurological: absent: Headache, Dizziness Endocrine: absent: Diaphoresis Psychiatric: absent: Depression Physical Exam Vital Signs Reviewed: Yes Vital Signs Temp Pulse Resp BP Pulse Ox 02/03/17 16:13 68 18 139/93 H 100 02/03/17 14:14 97.5 F L 74 16 139/91 H 96 Temperature: Afebrile Blood Pressure: Normal Pulse: Regular Respiratory Rate: Normal Appearance: Positive for: Well-Appearing, Non-Toxic, Comfortable Pain Distress: None Mental Status: Positive for: Alert and Oriented X 3 - Systems Exam Head: Present: Atraumatic, Normocephalic Pupils: Present: PERRL Extroacular Muscles: Present: EOMI Conjunctiva: Present: Normal Mouth: Present: Moist Mucous Membranes Neck: Present: Normal Range of Motion Respiratory/Chest: Present: Clear to Auscultation, Good Air Exchange. No: Respiratory Distress, Accessory Muscle Use Cardiovascular: Present: Regular Rate and Rhythm, Normal S1, S2. No: Murmurs Abdomen: Present: Tenderness (Mild tenderness in all quadrants), Normal Bowel Sounds, Other (Actively vomiting). No: Distention, Peritoneal Signs, Rebound, Guarding Back: Present: Normal Inspection Upper Extremity: Present: Normal Inspection. No: Cyanosis, Edema Lower Extremity: Present: Normal Inspection. No: Edema Neurological: Present: GCS=15, CN II-XII Intact, Speech Normal Skin: Present: Warm, Dry, Normal Color. No: Rashes Psychiatric: Present: Alert, Oriented x 3, Normal Insight, Normal Concentration Medical Decision Making ED Course and Treatment: Impression: Patient is a 36 year old male whose past medical history includes recurrent pancreatitis, hypertension, and peptic ulcer disease, who presents to the emergency department with vomiting. Presentation consistent with prior episodes of pancreatitis Differential Diagnosis included but are not limited to: Plan: -- Zofran, Pain medication -- Labs -- Reassess and disposition Prior Visits: Notes and results from previous visits were reviewed. Patient last seen in the ED on 12/21/16 for urinary retention, abdominal pain and admitted for Renal insufficiency, Pancreatitis, chronic, Abdominal pain Progress Notes: 02/03/17 15:05 Elevated lactate 2.2 noted. Patient meets no SIRS criteria and elevated lactate likely secondary to dehydration. IVF infusing 02/03/17 16:19 Patient has intractable pain and is still unable to tolerate po. Spoke to Dr. santiago and will transfer to observation for IV hydration and anti-emetic and analgesic medication. - Lab Interpretations Lab Results: 02/03/17 14:30 02/03/17 14:30 Lab Results 02/03/17 14:30: Sodium 141, Chloride 102, Potassium 4.4, Carbon Dioxide 25, Anion Gap 18, BUN 29 H, Creatinine 1.4, Est GFR ( Amer) > 60, Est GFR ( Non-Af Amer) 57, Random Glucose 118 H, Calcium 10.6 H, Phosphorus 2.7, Magnesium 2.5 H, Total Bilirubin 1.3, AST 27, ALT 22, Alkaline Phosphatase 75, Total Protein 9.5 H, Albumin 4.7, Globulin 4.8, Albumin/Globulin Ratio 1.0 L, Lipase 209 02/03/17 14:30: pO2 38, VBG pH 7.43, VBG pCO2 41.0, VBG HCO3 27.2, VBG Total CO2 28.5 H, VBG O2 Sat (Calc) 76.6 H, VBG Base Excess 2.6 H, VBG Potassium 4.4, Sodium 141.0, Chloride 105.0, Glucose 121 H, Lactate 2.2 H, FiO2 21.0, Venous Blood Potassium 4.4 02/03/17 14:30: WBC 8.4 D, RBC 4.41, Hgb 15.0, Hct 43.7, MCV 99.1, MCH 34.0, MCHC 34.3, RDW 14.1, Plt Count 259, MPV 9.8, Gran % 70.5 H, Lymph % (Auto) 15.1 L, [place] % (Auto) 14.3 H, Eos % (Auto) 0.1 L, Baso % (Auto) 0.0, Gran # 5.92, Lymph # 1.3, [place] # 1.2 H, Eos # 0.0, Baso # 0.00 - Medication Orders Current Medication Orders: Sodium Chloride (Sodium Chloride 0.9%) 1,000 mls @ 100 mls/hr IV .Q10H STA Stop: 02/04/17 02:07 Ondansetron HCl (Zofran Inj) 4 mg IVP Q6H PRN PRN Reason: Nausea/Vomiting Discontinued Medications Hydromorphone HCl (Dilaudid) 2 mg IVP STAT STA Stop: 02/03/17 14:54 Last Admin: 02/03/17 14:59 Dose: 2 mg Sodium Chloride (Sodium Chloride 0.9%) 1,000 mls @ 999 mls/hr IV .Q1H1M STA Stop: 02/03/17 15:28 Last Admin: 02/03/17 14:30 Dose: 999 mls/hr Ondansetron HCl (Zofran Inj) 4 mg IVP STAT STA Stop: 02/03/17 14:30 Last Admin: 02/03/17 14:54 Dose: 4 mg ED OBSERVATION Date of observation admission: 02/03/17 Time of observation admission: 16:06 - Observation admission statement Patient is being placed in observation because:: abdominal pain and vomiting - Goals of Observation Goals of observation are:: pain medication, analgesia, anti-emetics, iv hydration - Scribe Statement The provider has reviewed the documentation as recorded by the Scribe Ovidio Mckeon Provider Scribe Attestation: All medical record entries made by the Jose A were at my direction and personally dictated by me. I have reviewed the chart and agree that the record accurately reflects my personal performance of the history, physical exam, medical decision making, and the department course for this patient. I have also personally directed, reviewed, and agree with the discharge instructions and disposition. Disposition/Present on Arrival - Present on Arrival Any Indicators Present on Arrival: No History of DVT/PE: No History of Uncontrolled Diabetes: No Urinary Catheter: No History of Decub. Ulcer: No History Surgical Site Infection Following: None - Disposition Have Diagnosis and Disposition been Completed?: Yes Diagnosis: Abdominal pain, Pancreatitis, chronic, Intractable abdominal pain, Intractable vomiting Disposition: HOSPITALIZED Disposition Time: 16:07 Patient Problems: Current Active Problems Problem Status Onset Abdominal pain Acute Pancreatitis, chronic Acute Condition: FAIR
[2017-02-03] MEDS ORDERED: HYDROmorphone 2 mg/ml ISec IVP STA ×2 (14:53→16:24)
[2017-02-03 14:54] LABS: ADD MANUAL DIFF? NO
[2017-02-03 15:00] LABS: VENOUS BLOOD GAS BASE EXCESS 2.6 mmol/L (0.0-2.0); VENOUS BLOOD PH 7.43 (7.32-7.43)
[2017-02-03 15:02] LABS: EOS % 0.1 % (1.5-5.0); GRAN # 5.92 (1.4-6.5); GRAN % 70.5 % (50.0-68.0); HEMATOCRIT 43.7 % (42.0-52.0); LYMPH # 1.3 (1.2-3.4); LYMPH % 15.1 % (22.0-35.0); MEAN CELL VOLUME 99.1 fL (80.0-105.0); MEAN CORPUSCULAR HGB CONC 34.3 g/dl (31.0-37.0); MEAN PLATELET VOLUME 9.8 fl (7.0-11.0); MONO # 1.2 (0.1-0.6); MONO % 14.3 % (1.0-6.0); PLATELET COUNT 259 10^3/uL (120.0-450.0); RED CELL DISTRIBUTION WIDTH 14.1 % (11.5-14.5); WHITE BLOOD COUNT 8.4 10^3/ul (4.5-11.0)
[2017-02-03 15:10] LABS: ALKALINE PHOSPHATASE 75 U/L (38-133); ALT/SGPT 22 U/L (7-56); AST/SGOT 27 U/L (15-59); BILIRUBIN,TOTAL 1.3 mg/dL (0.2-1.3); BLOOD UREA NITROGEN 29 mg/dL (7-21); CALCIUM 10.6 mg/dL (8.4-10.5); CARBON DIOXIDE 25 mmol/L (21-33); CHLORIDE 102 mmol/L (98-107); GFR AFRICAN-AMERICAN > 60; GLUCOSE,RANDOM 118 mg/dL (70-110); LIPASE 209 U/L (23-300); MAGNESIUM 2.5 mg/dL (1.7-2.2); PHOSPHOROUS 2.7 mg/dL (2.5-4.5); POTASSIUM 4.4 mmol/L (3.6-5.0); SODIUM 141 mmol/L (132-148); TOTAL PROTEIN 9.5 g/dL (5.8-8.3)
[2017-02-03] MEDS: Dextrose 5%/0.45% NS 1,000 ML IV SCH (17:25)
[2017-02-03 19:49] LABS: VENOUS BLOOD PH 7.45 (7.32-7.43)
--- NOTE | 2017-02-03 19:51 | HP ---
HISTORY OF PRESENT ILLNESS: The patient is a 36-year-old who came to Emergency Room because of incre asing abdominal pain, complaint of intractable nausea, unable to hold any food. Said it has been goi ng on for the last 2-3 days. The patient states he has not been eating that well, has been drinking, able to urinate. No constipation, no diarrhea. The patient was referred to information security specialist in [place], ____ who did nerve block and he states he felt better for a few weeks, but the pain came b ack. ALLERGIES: LUZ INHIBITORS. PAST MEDICAL HISTORY: Significant for: 1. Morbid obesity. 2. Hypertension. 3. Had acute kidney injury twice. 4. Chronic pancreatitis. 5. Peptic ulcer disease. MEDICATIONS AT HOME: He is on valsartan 320 daily, spironolactone 25 daily, Protonix 40 daily, Zofra n 4 mg q. 6 hours p.r.n., Dilaudid 2 mg t.i.d. p.r.n., Lasix 40 mg daily. He is on Coreg 12.5 twice a day. 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 REVIEW OF SYSTEMS: Significant for nausea. He complained of epigastric discomfort and nausea. PHYSICAL EXAMINATION: GENERAL: He is awake and alert, communicative. VITAL SIGNS: He is afebrile, pulse 102, respirations 20, blood pressure 142/____. LUNGS: Bilateral fair airflow, no rhonchi or crackle. HEART: S1, S2 audible. ABDOMEN: Soft, obese, nontender. Slight epigastric discomfort. No rebound, no guarding. NEUROLOGIC: He is awake and alert, communicative. LABORATORY DATA: WBC is 8.4, hemoglobin 15, hematocrit 43, platelets 259. Chemistry: Sodium 141, p otassium 4.4, chloride 102, CO2 25, BUN 29, creatinine 1.4, blood sugar 118, calcium 10.6. Magnesium 2.5. Total protein 9.5. ASSESSMENT: 1. Acute on chronic pancreatitis. 2. Peptic ulcer disease. 3. Morbid obesity. 4. Hypertension. 5. Nonischemic cardiomyopathy. 6. History of alcohol abuse in the remote past. PLAN: We will start patient on IV fluids, analgesic and start him on PPI. I will request Dr. Ramasa my to evaluate patient also. Will follow up electrolytes and keep him n.p.o. for now. We will reeva luate the patient in a.m. Sammy Santiago MD cc: [phone] TT: 02/03/2017 19:50:39 tana
[2017-02-03] MEDS ORDERED: Pneumococcal 23-Valent Vaccine IM ONE (20:29)
[2017-02-03] MEDS: HYDROmorphone 2 mg/ml ISec IVP PRN (20:31)
[2017-02-04] MEDS: HYDROmorphone 2 mg/ml ISec IVP PRN ×5 (00:48→21:17)
[2017-02-04 09:07] LABS: ADD MANUAL DIFF? NO
[2017-02-04 09:20] LABS: ALKALINE PHOSPHATASE 59 U/L (38-133); ALT/SGPT 22 U/L (7-56); AST/SGOT 28 U/L (15-59); BILIRUBIN,TOTAL 0.9 mg/dL (0.2-1.3); BLOOD UREA NITROGEN 27 mg/dL (7-21); CALCIUM 9.3 mg/dL (8.4-10.5); CARBON DIOXIDE 24 mmol/L (21-33); CHLORIDE 101 mmol/L (95-110); GFR AFRICAN-AMERICAN > 60; GLUCOSE,RANDOM 99 mg/dL (70-110); SODIUM 132 mmol/L (132-148); TOTAL PROTEIN 7.7 g/dL (5.8-8.3)
[2017-02-04 09:30] LABS: BASO # 0.01 K/mm3 (0.0-2.0); BASO % 0.1 % (0.0-3.0); EOS % 0.5 % (1.5-5.0); GRAN # 4.65 (1.4-6.5); GRAN % 57.8 % (50.0-68.0); LYMPH # 2.2 (1.2-3.4); LYMPH % 27.8 % (22.0-35.0); MEAN CELL VOLUME 99.2 fL (80.0-105.0); MEAN CORPUSCULAR HEMOGLOBIN 33.8 pg (25.0-35.0); MEAN PLATELET VOLUME 9.3 fl (7.0-11.0); MONO # 1.1 (0.1-0.6); MONO % 13.8 % (1.0-6.0); PLATELET COUNT 222 10^3/uL (120.0-450.0); RED CELL DISTRIBUTION WIDTH 14.2 % (11.5-14.5); WHITE BLOOD COUNT 8.1 10^3/ul (4.5-11.0)
[2017-02-04 09:31] LABS: HEMATOCRIT 37.6 % (42.0-52.0)
--- NOTE | 2017-02-04 11:44 | PN ---
DATE: 02/04/2017 The patient is a 36-year-old, seen and examined, lying in bed, complaining of epigastric pain. He st ates he had a couple of bouts of nausea and one time he saw blood and got scared. He also has nosebl eed, so he came to Emergency Room for evaluation He is still complaining of epigastric discomfort, b ut nausea seems to be subsiding. He does not feel hungry though. PHYSICAL EXAMINATION: VITAL SIGNS: He is afebrile, pulse 61, respirations 20, blood pressure 135/84. LUNGS: Bilateral fair airflow, no rhonchi or crackle. HEART: S1, S2 audible. ABDOMEN: Soft, slight epigastric discomfort. No rebound, no guarding. NEUROLOGIC: He is awake and alert, communicative, ambulatory. EXTREMITIES: Bilateral leg +1 edema. LABORATORY EXAMINATION: WBCs 8.1, hemoglobin 12.8, hematocrit 37.6, platelet 222. Chemistry: Sodiu m 132, potassium 4.0, chloride 101, CO2 24, BUN 27, creatinine 1.3, blood sugar of 99. LFTs are with in normal limits. ASSESSMENT: 1. Intractable nausea followed by hematemesis. 2. Acute on chronic pancreatitis. 3. Morbid obesity. 4. Hypertension. 5. Hyperlipidemia. 6. Multiple episodes of acute renal failure in the past. 7. Recent celiac nerve block by Dr. Gabriel PLAN: We will keep patient n.p.o. and give him GI rest. Continue IV fluids, PPI, analgesic as neede d. He is yet to be seen by Dr. Choe. Awaiting his input. Continue above mentioned treatment. Sammy Santiago MD cc: [phone] TT: 02/04/2017 11:43:59 Confirmation # [id number] Dictation # [id number] tn
[2017-02-04] MEDS: Dextrose 5%/0.45% NS 1,000 ML IV SCH (21:18)
[2017-02-05] MEDS: Dextrose 5%/0.45% NS 1,000 ML IV SCH ×2 (00:47→09:40)
[2017-02-05] MEDS: HYDROmorphone 2 mg/ml ISec IVP PRN ×4 (01:13→13:41)
[2017-02-05 09:51] VITALS: BP 122/70
[2017-02-05 10:24] LABS: ADD MANUAL DIFF? NO
[2017-02-05 10:31] LABS: BASO # 0.01 K/mm3 (0.0-2.0); BASO % 0.1 % (0.0-3.0); EOS # 0.1 (0.0-0.7); EOS % 1.5 % (1.5-5.0); GRAN # 4.65 (1.4-6.5); GRAN % 59.6 % (50.0-68.0); HEMATOCRIT 38.8 % (42.0-52.0); LYMPH # 2.2 (1.2-3.4); LYMPH % 28.7 % (22.0-35.0); MEAN CELL VOLUME 99.7 fL (80.0-105.0); MEAN CORPUSCULAR HEMOGLOBIN 33.4 pg (25.0-35.0); MEAN CORPUSCULAR HGB CONC 33.5 g/dl (31.0-37.0); MEAN PLATELET VOLUME 9.3 fl (7.0-11.0); MONO # 0.8 (0.1-0.6); MONO % 10.1 % (1.0-6.0); PLATELET COUNT 225 10^3/uL (120.0-450.0); RED CELL DISTRIBUTION WIDTH 14.1 % (11.5-14.5); WHITE BLOOD COUNT 7.8 10^3/ul (4.5-11.0)
[2017-02-05 11:31] VITALS: PULSE 58; RESP 19; TEMP 98; O2SAT 95
--- NOTE | 2017-02-05 15:09 | PN ---
DATE: 02/05/2017 The patient is a 36-year-old, seen and examined, doing well, ambulating. No nausea, vomiting, no antony rrhea. PHYSICAL EXAMINATION: VITAL SIGNS: He is afebrile, pulse 50, respirations 19, blood pressure 122/70. LUNGS: Bilateral fair airflow, no rhonchi or crackle. HEART: S1, S2 audible. ABDOMEN: Soft, obese, slight epigastric discomfort. NEUROLOGIC: He is awake and alert, communicative. LABORATORY EXAMINATION: WBCs 7.8, hemoglobin 13, hematocrit 38, platelets 225. Chemistry: Sodium 1 32, potassium 4.0, chloride 101, CO2 24, BUN 27, creatinine 1.3, blood sugar of 99. ASSESSMENT: 1. Recurrent pancreatitis. 2. Hypertension. 3. Hyperlipidemia. 4. Morbid obesity. 5. Status post cholecystectomy. 6. Status post celiac block. PLAN: We will advance patient's diet and if he remains asymptomatic, he can be discharged home later on today. Sammy Santiago MD cc: [phone] TT: 02/05/2017 15:09:01 Confirmation # [id number] Dictation # [id number] en
--- NOTE | 2017-02-06 08:43 | CON ---
DATE: 02/04/2017 This is a 36-year-old patient with a history of chronic pancreatitis, recently seen in [facility]. The patient had a celiac block done. The patient had significant improvement for nearly about 2 months since the celiac block. Now admitted with again abdominal pain, slowly worsening for the past 2-3 days. The patient had episodes of vomiting. No fever, no diarrhea. OTHER PAST MEDICAL HISTORY: Significant as above, morbid obesity, hypertension , coronary artery disease. Significant for acute on chronic kidney disease, kidney injury. Acute kidney disease, chronic kidney disease, acute. The patient has a history of acute chronic kidney injury. History of chronic pancreatitis, peptic ulcer disease, morbid obesity, diverticulosis. SOCIAL HISTORY: history ETOH, denies smoking. REVIEW OF SYSTEMS: Positive as above. Other systems reviewed. PHYSICAL EXAMINATION: GENERAL: The patient is lying on the bed, not in acute distress. VITAL SIGNS: Temperature 97.6, blood pressure 135/84, pulse ____, respirations 20. HEENT: Atraumatic, anicteric. NECK: Supple. HEART: S1, S2 heard. LUNGS: Bilateral air entry present. ABDOMEN: Soft. Tenderness present in the epigastric area. EXTREMITIES: Mild edema present. No cyanosis, no clubbing. NEUROLOGIC: Alert, oriented. Moves all the extremities. LABORATORY DATA: Hemoglobin 12.8, hematocrit 37.6, WBCs 8.1, platelets 222. Chemistry is essentially LFTs normal, BUN ____, creatinine ____. IMPRESSION: This 36-year-old patient now admitted with abdominal pain, nausea, vomiting. The patient has a history of gastroparesis. The patient is being followed by in [facility] for pain management. The patient's CT scan was reviewed. The patient's previous imaging studies were reviewed. RECOMMEND: 1. Clear liquid diet. 2. PPI. 3. Pancreatic enzyme supplements. 4. The patient is due to be followed at the [facility]. The patient did have a celiac block recently. He feels that it helped him a lot. For more than 2 months, he had significant improvement in the pain. We will continue to closely follow up his care and suggest further treatment based on the clinical course. Kovil V Дмитрий MD cc: [phone] TT: 02/05/2017 07:46:02 Confirmation # [id number] Dictation # [id number] en GEOVANNI
--- NOTE | 2017-02-06 08:44 | PN ---
DATE: 02/05/2017 ADDENDUM This patient was seen and evaluated earlier. The patient is now tolerating a clear liquid diet. No complaints. PHYSICAL EXAMINATION: VITAL SIGNS: Afebrile, vital signs stable. ABDOMEN: Soft. There is still some mild tenderness present in the epigastric area. HEART: S1, S2 heard. LUNGS: Bilateral air entry present. EXTREMITIES: Mild edema present. NEUROLOGIC: Alert, oriented. Moves all the extremities. LABORATORY DATA: LFTs are essentially unremarkable. BUN 27, creatinine is 1.7. IMPRESSION: Acute exacerbation of chronic pancreatitis. History of status post celiac block in the past, improved and now has recurrence of the symptoms. Morbid obesity, status post cholecystectomy. History of . RECOMMENDATIONS: Will advance the diet. The patient needs to be followed at the [facility] . The patient was strongly encouraged about it. Thank you very much for allowing us to participate in the care of the patient. Souleymane Choe MD cc: [phone] TT: 02/05/2017 18:31:15 Confirmation # [id number] Dictation # [id number] blue
--- NOTE | 2017-02-06 08:44 | CON ---
DATE: 02/04/2017 HISTORY OF PRESENT ILLNESS: This patient was seen and evaluated today. This is a 36-year-old patient with a history of chronic pancreatitis, status post cholecystectomy, history of EtOH in the past, history of morbid obesity, hypertension, history of acute kidney injury in the past twice, history of peptic ulcer disease, diverticulosis, admitted with further worsening of the abdominal pain for the past 3-4 days. The patient said that he was followed at the [facility], [facility], had a celiac block done which really helped a lot, for nearly 2 months he was doing great until this episode. The patient has an appointment to see them next week. The patient came to the hospital because of worsening of symptoms. Other past medical history as above. ALLERGIES: LUZ INHIBITORS. SOCIAL HISTORY: He is an ex-smoker, alcohol use. No smoking. REVIEW OF SYSTEMS: Positive as above. Other systems reviewed and negative. PHYSICAL EXAMINATION: GENERAL: The patient is lying on the bed, not in acute distress. VITAL SIGNS: Pulse 61, blood pressure is 135/84, afebrile, respirations 18. HEENT: Atraumatic, anicteric. NECK: Supple. HEART: S1, S2 heard. LUNGS: Bilateral air entry present. ABDOMEN: Soft. Tenderness present in the epigastric area. EXTREMITIES: Mild edema present. LABORATORY DATA: Hemoglobin is 12.8, hematocrit 37.6, WBC is 8.1, platelets 222. Chemistries: BUN 29, creatinine 1.4. ASSESSMENT/PLAN:This 36-year-old patient with chronic pancreatitis on pancreatic enzyme supplement, status post celiac block which appears to have helped for alleviating this pain, admitted with worsening of the symptoms for about 3-4 days. The patient appears to have acute exacerbation of the pancreatitis and is admitted with recurrent pancreatitis. The patient had episodes of vomiting multiple times and then he noticed the streaks of blood. This could be due to [place]. The reasonable thing at this period of time is to treat him conservatively and patient is better with IV fluids and tolerating the clear liquid diet and will slowly advance the diet. The patient was strongly encouraged to follow up at the [facility] and further follow up with doctor. Will continue to closely follow. Thank you very much for allowing me to participate in the care of the patient. Souleymane Choe MD cc: [phone] TT: 02/05/2017 20:54:53 Confirmation # [id number] Dictation # [id number] mn GEOVANNI
--- NOTE | 2017-03-22 22:37 | DS ---
ADDENDUM The patient is a 36-year-old who was admitted with abdominal discomfort and history of recurrent panc reatitis. 1. Hypertension. 2. Morbid obesity. The patient had nerve block done by as outpatient seems to be working. On 02/05, his diet was advanced. He started to tolerate so he was discharged home on 02/05. He will resume his medicat ion as prior to admission and he will follow up with as an outpatient. Sammy Santiago MD cc: [phone] TT: 03/22/2017 22:37:02 an
== END 2017-02-05 15:58 | disposition home or self-care (01) ==
LOC: ED 14:13 → EROBSV 16:06 → ERH 16:11 → 3RNO 17:09
PROVIDERS: ADMIT Internal Medicine; ATTEND Internal Medicine
DX: K85.90 Acute pancreatitis without necrosis or infection, unspecified (principal); K86.1 Other chronic pancreatitis; K31.84 Gastroparesis; K92.0 Hematemesis; I42.9 Cardiomyopathy, unspecified; I12.9 Hypertensive chronic kidney disease with stage 1 through stage 4 chronic kidney disease, or unspecified chronic kidney disease; N18.9 Chronic kidney disease, unspecified; E78.5 Hyperlipidemia, unspecified; E66.01 Morbid (severe) obesity due to excess calories; Z68.42 Body mass index [BMI] 45.0-49.9, adult; Z87.11 Personal history of peptic ulcer disease; Z87.891 Personal history of nicotine dependence
CPT/HCPCS: 36415; 80053; 82803; 83690; 83735; 84100; 85025; 96361; 96374; 96375; 96376; 99285; C9113; G0378; J1170; J2405; J7040; J7042

== ENCOUNTER 2017-05-01 15:48 | Inpatient (IN) | payer BC ==
[2017-05-01 15:49] VITALS: PULSE 78; BMI 47.5
--- NOTE | 2017-05-01 16:16 | ED PDOC ---
Arrival/HPI - General Chief Complaint: GI Problem Time Seen by Provider: 05/01/17 16:07 Historian: Patient - History of Present Illness Narrative History of Present Illness (Text): 05/01/17 16:12 36 y/o male, pmh including CHF/HTN/Pancreatitis/Peptic Ulcer Disease/Renal stone , History of alcohol abuse, had celiac block for chronic pancreatitis at [facility] back in 11/2016, c/o abdominal pain with nausea/vomiting x 1 day. Pt. stated that he has chronic pancreatitis, feels like the pain is coming back again, scheduled and due for the celiac block procedure. Pt. has 2 episodes of diarrhea today. Pt. stated that he has no headache or dizziness, no change in vision, no palpitation, no numbness or tingling, no other medical or psychological complaints. Past Medical History - Provider Review Nursing Documentation Reviewed: Yes - Past History Past History: Non-Contributing - Infectious Disease Hx of Infectious Diseases: None - Tetanus Immunization Tetanus Immunization: Unknown - Cardiac Hx Cardiac Disorders: Yes (cardiomyopathy) Hx Congestive Heart Failure: Yes Hx Hypertension: Yes - Pulmonary Hx Respiratory Disorders: No Hx Asthma: No Hx Sleep Apnea: No - Neurological Hx Neurological Disorder: No - HEENT Hx HEENT Disorder: No - Renal Hx Renal Disorder: Yes Hx Kidney Stones: Yes Hx Renal Failure: Yes - Endocrine/Metabolic Hx Endocrine Disorders: No - Hematological/Oncological Hx Blood Disorders: No - Integumentary Hx Dermatological Disorder: No - Musculoskeletal/Rheumatological Hx Falls: No - Gastrointestinal Hx Gastrointestinal Disorders: Yes (obese) Hx Diverticulitis: Yes Hx Gastroesophageal Reflux: Yes Hx Pancreatitis: Yes - Genitourinary/Gynecological Hx Genitourinary Disorders: Yes (urinary retention) - Psychiatric Hx Psychophysiologic Disorder: No Hx Substance Use: No - Past Surgical History Past Surgical History: No Previous - Surgical History Hx Cholecystectomy: Yes - Anesthesia Hx Anesthesia: Yes Hx Anesthesia Reactions: No Hx Malignant Hyperthermia: No - Suicidal Assessment Feels Threatened In Home Enviroment: No Family/Social History - Physician Review Nursing Documentation Reviewed: Yes Family/Social History: Unknown Family HX Smoking Status: Heavy Smoker > 10 Cigarettes Daily Hx Alcohol Use: No Hx Substance Use: No Hx Substance Use Treatment: No Allergies/Home Meds Allergies/Adverse Reactions: Allergies LUZ Inhibitors Allergy (Verified 11/09/16 12:51) ANGIOEDEMA Home Medications: Home Meds Medication Instructions Recorded Confirmed Pantoprazole Sodium [Protonix] 40 mg PO DAILY 02/10/12 05/01/17 Carvedilol [Coreg] 12.5 mg PO BID 05/02/12 05/01/17 Hydromorphone HCl [Dilaudid] 2 mg PO TID PRN 12/07/15 05/01/17 Furosemide [Lasix] 40 mg PO DAILY 04/29/16 05/01/17 Spironolactone [Aldactone] 25 mg PO DAILY 04/29/16 05/01/17 Amylase/Lipase/Protease [Pancrease 3 tab PO AC 10/07/16 05/01/17 14029 U-[id number] U] Valsartan 40 mg PO DAILY 10/07/16 05/01/17 Famotidine [Pepcid] 20 mg PO DAILY 11/03/16 05/01/17 Review of Systems - Review of Systems Constitutional: absent: Fatigue, Fevers Eyes: absent: Vision Changes ENT: absent: Hearing Changes Respiratory: absent: SOB, Cough Cardiovascular: absent: Chest Pain Gastrointestinal: Abdominal Pain, Diarrhea, Nausea, Vomiting Musculoskeletal: absent: Arthralgias, Myalgias Skin: absent: Rash, Pruritis, Skin Lesions Neurological: absent: Headache, Dizziness, Focal Weakness Physical Exam Vital Signs Reviewed: Yes Vital Signs Temp Pulse Resp BP Pulse Ox 05/01/17 20:02 65 18 141/75 100 05/01/17 18:56 63 16 142/83 100 05/01/17 17:49 65 18 148/79 95 05/01/17 16:07 98.4 F 63 24 146/88 95 Temperature: Afebrile Blood Pressure: Normal Pulse: Regular Respiratory Rate: Normal Appearance: Positive for: Well-Appearing, Non-Toxic Pain Distress: Severe Mental Status: Positive for: Alert and Oriented X 3 - Systems Exam Head: Present: Atraumatic, Normocephalic Pupils: Present: PERRL Extroacular Muscles: Present: EOMI Conjunctiva: Present: Normal Mouth: Present: Moist Mucous Membranes Neck: Present: Normal Range of Motion Respiratory/Chest: Present: Clear to Auscultation, Good Air Exchange. No: Respiratory Distress, Accessory Muscle Use Cardiovascular: Present: Regular Rate and Rhythm, Normal S1, S2. No: Murmurs Abdomen: Present: Tenderness (+epigastric and lt. sided abdominal tenderness), Normal Bowel Sounds. No: Distention, Peritoneal Signs, Rebound, Guarding Back: Present: Normal Inspection, CVA Tenderness (left CVA tenderness) Upper Extremity: Present: Normal Inspection. No: Cyanosis, Edema Lower Extremity: Present: Normal Inspection. No: Edema Neurological: Present: GCS=15, Speech Normal, Motor Func Grossly Intact, Gait Normal, Memory Normal Skin: Present: Warm, Dry, Normal Color. No: Rashes Psychiatric: Present: Alert, Oriented x 3, Normal Insight, Normal Concentration Medical Decision Making ED Course and Treatment: 05/01/17 16:19 -labs -ekg -CT abdomen and pelvis -IVF/dilaudid/zofran/pepcid -Observe and reassess 05/01/17 20:53 -CT abdomen and pelvis show: diverticulitis vs. colitis with lt. obstructing ureter stone with largest 1.7cm dimension, incidental findings of disc herniation on L4L5. Please see the CT for full report. -Chest x-ray show: no acute infiltrate. -NSR @ 68 BPM, no ST elevatino or depression, chronic T wave inversion on lead III and aVF, compared with previous ekg. -Labs are non-significant except wbc 12.5, BUN 30 and creatine 1.5, BNP within normal limit. -UA is pending, will treat with cipro and flagyl which that will cover the UTI source. -Pt. is vomiting and still having pain, despite multiple rounds of dilaudid. -Pt. will need admission for diverticulitis with po intolerance along with obstructing renal stone plus dehydration. -Dr. Santiago paged. 05/01/17 21:14 -I spoke to Dr. Santiago about the case, discussed about the labs/radiology results, request Dr. Choe for routine consult and agreed for Dr. Summers. -I discussed with Dr. Wright and he will put in the admission order. 05/01/17 23:11 -UA show +UTI, pt. is currently on antibiotic that will cover UTI. - Lab Interpretations Microbiology Results: Microbiology Results 05/01/17 21:00 Urine,Clean Catch Urine Culture - Final No Growth (<1,000 CFU/ML) Lab Results: 05/02/17 07:30 05/03/17 06:45 Lab Results 05/03/17 06:45: Sodium 135, Potassium 3.8, Chloride 99, Carbon Dioxide 27, Anion Gap 13, BUN 18, Creatinine 1.8 H, Est GFR ( Amer) 51, Est GFR (Non- Af Amer) 42, Random Glucose 98, Calcium 8.9, Total Bilirubin 0.6, AST 23, ALT 23 , Alkaline Phosphatase 60, Total Protein 7.0, Albumin 3.6, Globulin 3.4, Albumin /Globulin Ratio 1.1 05/02/17 07:30: Sodium 138, Potassium 3.9, Chloride 100, Carbon Dioxide 29, Anion Gap 13, BUN 26 H, Creatinine 1.6 H, Est GFR ( Amer) 59, Est GFR ( Non-Af Amer) 49, Random Glucose 100, Calcium 9.5, Total Bilirubin 0.7, AST 32, ALT 25, Alkaline Phosphatase 66, Total Protein 7.5, Albumin 4.0, Globulin 3.5, Albumin/Globulin Ratio 1.1 05/02/17 07:30: WBC 10.4, RBC 3.69, Hgb 12.1 L, Hct 36.7 L, MCV 99.5, MCH 32.8, MCHC 33.0, RDW 13.4, Plt Count 256, MPV 9.4, Gran % 68.6 H, Lymph % (Auto) 19.1 L, [place] % (Auto) 11.6 H, Eos % (Auto) 0.6 L, Baso % (Auto) 0.1, Gran # 7.11 H, Lymph # 2.0, [place] # 1.2 H, Eos # 0.1, Baso # 0.01 05/01/17 21:00: Urine Color Yellow, Urine Appearance Sl cloudy, Urine pH 6.0, Ur Specific [place] 1.025, Urine Protein 30 H, Urine Glucose (UA) Negative, Urine Ketones Negative, Urine Blood Large H, Urine Nitrate Negative, Urine Bilirubin Negative, Urine Urobilinogen 0.2, Ur Leukocyte Esterase Trace H, Urine RBC 25 - 30, Urine WBC 5 - 10, Ur Epithelial Cells 4 - 5, Urine Bacteria Rare 05/01/17 16:17: Salicylates < 1 L, Acetaminophen < 10.0 L 05/01/17 16:17: Sodium 138, Potassium 4.1, Chloride 100, Carbon Dioxide 25, Anion Gap 17, BUN 30 H, Creatinine 1.5 H, Est GFR ( Amer) > 60, Est GFR ( Non-Af Amer) 52, Random Glucose 99, Calcium 10.0, Total Bilirubin 0.9, AST 36, ALT 21, Alkaline Phosphatase 74, Lactate Dehydrogenase 513, Total Creatine Kinase 92, Troponin I < 0.01 D, NT-Pro-B Natriuret Pep 282, Total Protein 8.7 H , Albumin 4.4, Globulin 4.3, Albumin/Globulin Ratio 1.0 L, Lipase 169 05/01/17 16:17: WBC 12.5 H D, RBC 3.99, Hgb 13.5 L, Hct 39.3 L, MCV 98.5, MCH 33.8, MCHC 34.4, RDW 13.3, Plt Count 301, MPV 9.9, Gran % 77.6 H, Lymph % (Auto ) 10.8 L, [place] % (Auto) 11.3 H, Eos % (Auto) 0.2 L, Baso % (Auto) 0.1, Gran # 9.68 H, Lymph # 1.3, [place] # 1.4 H, Eos # 0.0, Baso # 0.01 Interpretation: Abnormal lab values (wbc 12.5, +UTI) - RAD Interpretation Radiology Orders: 05/01/17 18:54 ABDOMEN & PELVIS [ABD & PELVIS W/O PO OR IV CONT] [CT] Stat 05/01/17 23:09 CHEST PORTABLE [RAD] Stat ABDOMEN: Liver: There is low density identified within the medial segment of the left lobe of the liver adjacent to the falciform ligament. This is a common location for fatty infiltration. Gallbladder and bile ducts: Surgical clips are identified within the gallbladder fossa, compatible with cholecystectomy. Pancreas: Normal contour. No ductal dilation. Spleen: No splenomegaly. Adrenals: No mass. Kidneys and ureters: At the upper pole of the left kidney, there is a 2.7 x 2.7 cm milk of calcium cyst, with layering hyperdensity. A similar finding is visualized on the prior study. There is fullness of the left renal collecting system, with a new obstructing calculus within the proximal ureter measuring 0.9 x 0.8 x 1.7 cm. Stomach and bowel: Scattered colonic diverticula are visualized. There is mild pericolonic stranding adjacent to the sigmoid colon, consistent with mild diverticulitis. There is mild wall thickening of the sigmoid colon, consistent with colitis or diverticulitis. There is stable prominence of submucosal fat within the colon. Appendix: No findings to suggest acute appendicitis. PELVIS: Bladder: No stones. Reproductive: Unremarkable as visualized. ABDOMEN and PELVIS: Intraperitoneal space: No free air. No loculated collection of fluid within the abdomen to suggest abscess. Bones/joints: There is prominence of epidural fat with narrowing of the lumbar spinal canal within the mid to lower lumbar spine. A posterior disc herniation is visualized at L4-5. Hypertrophic degenerative changes are noted within the spine. Vasculature: No abdominal aortic aneurysm. Lymph nodes: Nonspecific mildly enlarged inguinal lymph nodes are visualized. These lymph nodes are stable. No significant retroperitoneal or intrapelvic lymphadenopathy. IMPRESSION: 1. At the upper pole of the left kidney, there is a 2.7 x 2.7 cm milk of calcium cyst. A similar finding is visualized on the prior study. There is fullness of the left renal collecting system, with a new obstructing calculus within the proximal ureter measuring 0.9 x 0.8 x 1.7 cm. 2. Scattered colonic diverticula are visualized. There is mild pericolonic stranding adjacent to the sigmoid colon, consistent with mild diverticulitis. There is mild wall thickening of the sigmoid colon, consistent with colitis or diverticulitis. These findings are progression. 3. There is mild cardiomegaly. 4. There is prominence of epidural fat with narrowing of the lumbar spinal canal within the mid to lower lumbar spine. A posterior disc herniation is visualized at L4-5. This can be further evaluated with MRI. 5. Additional CT findings described above. Dictated By: Nehemiah Agarwal MD, MD Dictated Date/Time: 05/01/172029 Signed By: Nehemiah Patterson MD Date Signed: 2029 Transcribed By: [email or web address] Transcribe Date/Time : 05/01/172029 chest x-ray: no acute infiltrate Shank Inspector: Radiologist - EKG Interpretation EKG Interpretation (Text): 05/01/17 16:59 NSR @ 68 BPM, no ST elevatino or depression, chronic T wave inversion on lead III and aVF, compared with previous ekg. Interpreted by ED Physician: Yes Type: 12 lead EKG Comparison: Com.w/previous EKG - Medication Orders Current Medication Orders: Acetaminophen (Tylenol 325mg Tab) 650 mg PO Q6H PRN PRN Reason: Fever >100.4 F Carvedilol (Coreg) 12.5 mg PO BID [facility] Last Admin: 05/03/17 17:47 Dose: 12.5 mg Hydromorphone HCl (Dilaudid) 2 mg IVP Q4H PRN PRN Reason: Pain, moderate (4-7) Last Admin: 05/04/17 05:51 Dose: 2 mg Metronidazole (Flagyl) 250 mg in 50 mls @ 100 mls/hr IV Q8 ELSIE PRN Reason: Protocol Stop: 05/07/17 06:01 Last Admin: 05/04/17 05:51 Dose: 100 mls/hr Ceftriaxone Sodium (Rocephin 1 Gram Ivpb) 1 gm in 100 mls @ 100 mls/hr IVPB DAILY [facility] PRN Reason: Protocol Last Admin: 05/03/17 11:40 Dose: 100 mls/hr Famotidine (Pepcid 20mg/50ml Premix) 20 mg in 50 mls @ 100 mls/hr IVPB Q12 [facility] Last Admin: 05/03/17 21:50 Dose: 100 mls/hr Dextrose/Sodium Chloride (Dextrose 5%/0.45% Ns 1000 Ml) 1,000 mls @ 125 mls/hr IV .Q8H [facility] Last Admin: 05/04/17 04:52 Dose: 125 mls/hr Ondansetron HCl (Zofran Inj) 4 mg IVP Q6H PRN PRN Reason: Nausea/Vomiting Last Admin: 05/03/17 04:53 Dose: 4 mg Spironolactone (Aldactone) 25 mg PO DAILY [facility] Last Admin: 05/03/17 09:09 Dose: 25 mg Sucralfate (Carafate Oral Susp) 1 gm PO 0600,1600 [facility] Last Admin: 05/04/17 05:51 Dose: 1 gm Discontinued Medications Famotidine (Pepcid) 20 mg IVP STAT STA Stop: 05/01/17 16:19 Last Admin: 05/01/17 16:48 Dose: 20 mg Hydromorphone HCl (Dilaudid) 2 mg IVP STAT STA Stop: 05/01/17 16:18 Last Admin: 05/01/17 16:49 Dose: 2 mg Hydromorphone HCl (Dilaudid) 1 mg IVP STAT STA Stop: 05/01/17 18:41 Last Admin: 05/01/17 18:57 Dose: 1 mg Hydromorphone HCl (Dilaudid) 1 mg IVP STAT STA Stop: 05/01/17 21:26 Last Admin: 05/01/17 21:46 Dose: 1 mg Sodium Chloride (Sodium Chloride 0.9%) 1,000 mls @ 100 mls/hr IV .Q10H [facility] Last Admin: 05/01/17 16:50 Dose: 100 mls/hr Ciprofloxacin (Cipro 400mg/200ml Dsw) 400 mg in 200 mls @ 133.3 mls/hr IVPB STAT STA PRN Reason: Protocol Stop: 05/01/17 22:20 Last Admin: 05/01/17 22:33 Dose: 133.3 mls/hr Metronidazole (Flagyl) 500 mg in 100 mls @ 100 mls/hr IVPB STAT STA PRN Reason: Protocol Stop: 05/01/17 21:49 Last Admin: 05/01/17 21:23 Dose: 100 mls/hr Dextrose/Sodium Chloride (Dextrose 5%/0.45% Ns 1000 Ml) 1,000 mls @ 100 mls/hr IV .Q10H [facility] Last Admin: 05/03/17 11:33 Dose: 100 mls/hr Iohexol (Omnipaque 350 100 Ml) Confirm Administered Dose 350 mg .ROUTE .STK-MED ONE Stop: 05/01/17 17:39 Ondansetron HCl (Zofran Inj) 8 mg IVP STAT STA Stop: 05/01/17 16:18 Last Admin: 05/01/17 16:48 Dose: 8 mg Pantoprazole Sodium (Protonix Inj) 40 mg IVP DAILY [facility] Last Admin: 05/02/17 10:26 Dose: 40 mg Tamsulosin HCl (Flomax) 0.4 mg PO STAT STA Stop: 05/01/17 20:51 Last Admin: 05/01/17 21:23 Dose: 0.4 mg - PA / POULTRY SCIENTIST / Resident Statement / has reviewed & agrees with the documentation as recorded. Disposition/Present on Arrival - Present on Arrival Any Indicators Present on Arrival: No History of DVT/PE: No History of Uncontrolled Diabetes: No Urinary Catheter: No History of Decub. Ulcer: No History Surgical Site Infection Following: None - Disposition Have Diagnosis and Disposition been Completed?: Yes Diagnosis: Diverticulitis, Ureterolithiasis, Nausea and vomiting, Intractable vomiting, Dehydration, Elevated serum creatinine, UTI (urinary tract infection) Disposition: HOSPITALIZED Disposition Time: 20:56 Patient Plan: Admission, Observation Patient Problems: Current Active Problems Problem Status Onset Dehydration Acute Diverticulitis Acute Elevated serum creatinine Acute Intractable vomiting Acute Nausea and vomiting Acute UTI (urinary tract infection) Acute Ureterolithiasis Acute Condition: STABLE
[2017-05-01] MEDS ORDERED: HYDROmorphone 2 mg/ml ISec IVP STA (16:17)
[2017-05-01] MEDS ORDERED: Sodium Chloride 0.9% 1,000 ML IV SCH (16:30)
[2017-05-01 17:02] LABS: BASO # 0.01 K/mm3 (0.0-2.0); BASO % 0.1 % (0.0-3.0); EOS % 0.2 % (1.5-5.0); GRAN # 9.68 (1.4-6.5); GRAN % 77.6 % (50.0-68.0); HEMOGLOBIN 13.5 gm/dL (14.0-18.0); LYMPH # 1.3 (1.2-3.4); LYMPH % 10.8 % (22.0-35.0); MEAN CELL VOLUME 98.5 fL (80.0-105.0); MEAN CORPUSCULAR HEMOGLOBIN 33.8 pg (25.0-35.0); MEAN CORPUSCULAR HGB CONC 34.4 g/dl (31.0-37.0); MEAN PLATELET VOLUME 9.9 fl (7.0-11.0); MONO # 1.4 (0.1-0.6); MONO % 11.3 % (1.0-6.0); PLATELET COUNT 301 10^3/uL (120.0-450.0); RBC 3.99 10^6/uL (3.5-6.1); RED CELL DISTRIBUTION WIDTH 13.3 % (11.5-14.5); WHITE BLOOD COUNT 12.5 10^3/ul (4.5-11.0)
[2017-05-01 17:13] LABS: SALICYLATE < 1 mg/dL (2.0-20.0)
[2017-05-01 17:18] LABS: ACETAMINOPHEN < 10.0 ug/ml (10.0-20.0)
[2017-05-01] MEDS ORDERED: Iohexol 350 MG/100 ML VIAL ONE (17:38)
[2017-05-01 18:36] LABS: ALBUMIN 4.4 g/dL (3.0-4.8); ALT/SGPT 21 U/L (7-56); AST/SGOT 36 U/L (15-59); BLOOD UREA NITROGEN 30 mg/dL (7-21); GFR AFRICAN-AMERICAN > 60; GFR NON-AFRICAN AMERICAN 52; LIPASE 169 U/L (23-300)
[2017-05-01] MEDS ORDERED: HYDROmorphone 1 mg/ml ISec IVP STA ×2 (18:40→21:25)
[2017-05-01 18:45] LABS: B-TYPE NATRIURETIC PEPTIDE 282 pg/mL (0-450)
[2017-05-01 18:49] LABS: TROPONIN I < 0.01 ng/mL
--- NOTE | 2017-05-01 20:30 | CT ---
EXAM: CT Abdomen and Pelvis Without Intravenous Contrast CLINICAL HISTORY: The patient age is 36 years old and is male; Pain; Abdominal pain; Acute; Patient HX: HX pancreatitis; Additional info: Abdominal pain and vomiting Facility exam id and description: Ct [id number] abd pelvis w/o po or iv cont TECHNIQUE: Axial computed tomography images of the abdomen and pelvis without intravenous contrast. This CT exam was performed using one or more of the following dose reduction techniques: automated exposure control, adjustment of the mA and/or kV according to patient size, and/or use of iterative reconstruction technique. Coronal and sagittal reformatted images were created and reviewed. EXAM DATE/TIME: 05/01/2017 6:54 PM COMPARISON: CT - ABD PELVIS W/O PO OR IV CONT 11/03/2016 1:54:32 AM FINDINGS: Lower thorax: There is mild cardiomegaly. A Bochdalek hernia is visualized at the right posterior lung base. Mild atelectatic changes are visualized at the lung bases. ABDOMEN: Liver: There is low density identified within the medial segment of the left lobe of the liver adjacent to the falciform ligament. This is a common location for fatty infiltration. Gallbladder and bile ducts: Surgical clips are identified within the gallbladder fossa, compatible with cholecystectomy. Pancreas: Normal contour. No ductal dilation. Spleen: No splenomegaly. Adrenals: No mass. Kidneys and ureters: At the upper pole of the left kidney, there is a 2.7 x 2.7 cm milk of calcium cyst, with layering hyperdensity. A similar finding is visualized on the prior study. There is fullness of the left renal collecting system, with a new obstructing calculus within the proximal ureter measuring 0.9 x 0.8 x 1.7 cm. Stomach and bowel: Scattered colonic diverticula are visualized. There is mild pericolonic stranding adjacent to the sigmoid colon, consistent with mild diverticulitis. There is mild wall thickening of the sigmoid colon, consistent with colitis or diverticulitis. There is stable prominence of submucosal fat within the colon. Appendix: No findings to suggest acute appendicitis. PELVIS: Bladder: No stones. Reproductive: Unremarkable as visualized. ABDOMEN and PELVIS: Intraperitoneal space: No free air. No loculated collection of fluid within the abdomen to suggest abscess. Bones/joints: There is prominence of epidural fat with narrowing of the lumbar spinal canal within the mid to lower lumbar spine. A posterior disc herniation is visualized at L4-5. Hypertrophic degenerative changes are noted within the spine. Vasculature: No abdominal aortic aneurysm. Lymph nodes: Nonspecific mildly enlarged inguinal lymph nodes are visualized. These lymph nodes are stable. No significant retroperitoneal or intrapelvic lymphadenopathy. IMPRESSION: 1. At the upper pole of the left kidney, there is a 2.7 x 2.7 cm milk of calcium cyst. A similar finding is visualized on the prior study. There is fullness of the left renal collecting system, with a new obstructing calculus within the proximal ureter measuring 0.9 x 0.8 x 1.7 cm. 2. Scattered colonic diverticula are visualized. There is mild pericolonic stranding adjacent to the sigmoid colon, consistent with mild diverticulitis. There is mild wall thickening of the sigmoid colon, consistent with colitis or diverticulitis. These findings are progression. 3. There is mild cardiomegaly. 4. There is prominence of epidural fat with narrowing of the lumbar spinal canal within the mid to lower lumbar spine. A posterior disc herniation is visualized at L4-5. This can be further evaluated with MRI. 5. Additional CT findings described above.
[2017-05-01] MEDS ORDERED: metroNIDAZOLE IV 500 mg/100 ml 500 MG/100 ML BAG IVPB STA (20:50)
[2017-05-01] MEDS ORDERED: Ciprofloxacin 400mg/200ml D5W 400 MG/200 ML BAG IVPB STA (20:50)
[2017-05-01 21:24] LABS: URINE BILIRUBIN NEGATIVE (NEGATIVE); URINE BLOOD LARGE (NEGATIVE); URINE GLUCOSE (UA) NEGATIVE (NEGATIVE); URINE LEUKOCYTE ESTERASE TRACE Leu/uL (NEGATIVE); URINE NITRATE NEGATIVE (NEGATIVE); URINE PROTEIN 30 mg/dL (<30 mg/dL); URINE UROBILINOGEN 0.2 E.U./dL (<1 E.U./dL)
[2017-05-01 21:30] LABS: URINE COLOR YELLOW (YELLOW)
[2017-05-01 21:31] LABS: URINE APPEARANCE SL CLOUDY (CLEAR)
[2017-05-01 21:40] LABS: URINE BACTERIA RARE (NEG); URINE RBC 25 - 30 /hpf (0-2)
[2017-05-01] MEDS: Dextrose 5%/0.45% NS 1,000 ML IV SCH (23:10)
[2017-05-01] MEDS: HYDROmorphone 2 mg/ml ISec IVP PRN (23:41)
[2017-05-02] MEDS: HYDROmorphone 2 mg/ml ISec IVP PRN ×5 (03:48→20:40)
--- NOTE | 2017-05-02 05:12 | HP ---
HISTORY OF PRESENT ILLNESS: The patient is a 36 years old known to me from multiple previous admissions. He is a 36 years old black morbidly obese male who came in with abdominal pain with nausea and intermittent diarrhea. This is happening for almost for day or 2. The patient states he felt good relief since he had celiac block in [facility]. He had complained of decreased appetite. Had 2 episodes of watery diarrhea since morning. No history of fever. No chills. No hemoptysis. No hematemesis. No rectal bleeding. PAST MEDICAL HISTORY: Significant for: 1. Cardiomyopathy. 2. Hypertension. 3. Morbid obesity. 4. Chronic pancreatitis. 5. History of alcohol abuse in the remote past. 6. Peptic ulcer disease. 7. Cholelithiasis. 8. History of celiac block earlier this year with significant improvement. PAST SURGICAL HISTORY: Significant for cholecystectomy. ALLERGIES: ALLERGIC TO LUZ INHIBITORS. MEDICATIONS AT HOME: He is on: 1. Oxycodone 15 mg twice a day. 2. Valsartan 40 mg daily. 3. Aldactone 25 daily. 4. Protonix 40 daily. 5. Zofran 4 mg q.8 hours. 6. Dilaudid 2 mg 3 times a day. 7. Lasix 40 mg daily. 8. Pepcid 20 mg daily. 9. Coreg 12.5 twice a day and he takes pancreatic enzyme. SOCIAL HISTORY: He still smokes. He used to abuse alcohol in the past, but has not been drinking recently. REVIEW OF SYSTEMS: Significant for abdominal pain, more so on the left upper quadrant, left lower quadrant, and epigastric area. LABORATORY DATA: WBC 12.5, hemoglobin 13.5, hematocrit 39.3 and platelet 301. Chemistry; sodium 138, potassium 4.1, chloride 100, CO2 of 25, BUN 30, creatinine 1.5, and blood sugar 199. LFTs are within normal limits. Urinalysis shows large blood, trace leukocytes. CT scan of the abdomen and pelvis was done that shows milky calcium cyst in the left upper kidney, fullness on the left renal collecting system with obstructing calculus, scattered colonic diverticuli and mild pericolic stranding adjacent to the sigmoid colon consistent with mild diverticulitis. There is also wall thickening of sigmoid colon, mild cardiomegaly, prominence of epidural fat with narrowing of lumbar spinal canal within the mid to lower lumbar spine. ASSESSMENT: 1. Mild diverticulitis. 2. Acute on chronic renal failure. 3. Leukocytosis. 4. Hypertension. 5. Cardiomyopathy. 6. Chronic pancreatitis. PLAN: I will keep the patient n.p.o., will give him IV fluids. Start him on antibiotics. Dr. Choe for GI evaluation and Dr. Summers for Urology evaluation has been consulted. We will follow up electrolytes, CBC, and CMP in the a.m. Sammy Santiago MD
[2017-05-02] MEDS: metroNIDAZOLE IV 250mg/50 ml 250 MG/50 ML BAG IV SCH ×3 (06:15→22:22)
[2017-05-02 07:55] LABS: BASO # 0.01 K/mm3 (0.0-2.0); BASO % 0.1 % (0.0-3.0); EOS # 0.1 (0.0-0.7); EOS % 0.6 % (1.5-5.0); GRAN # 7.11 (1.4-6.5); GRAN % 68.6 % (50.0-68.0); HEMOGLOBIN 12.1 gm/dL (14.0-18.0); LYMPH % 19.1 % (22.0-35.0); MEAN CELL VOLUME 99.5 fL (80.0-105.0); MEAN CORPUSCULAR HEMOGLOBIN 32.8 pg (25.0-35.0); MEAN PLATELET VOLUME 9.4 fl (7.0-11.0); MONO # 1.2 (0.1-0.6); MONO % 11.6 % (1.0-6.0); PLATELET COUNT 256 10^3/uL (120.0-450.0); RBC 3.69 10^6/uL (3.5-6.1); RED CELL DISTRIBUTION WIDTH 13.4 % (11.5-14.5); WHITE BLOOD COUNT 10.4 10^3/ul (4.5-11.0)
--- NOTE | 2017-05-02 08:17 | RAD ---
HISTORY: medical clearance COMPARISON: Portable chest 10/07/2016. FINDINGS: LUNGS: Study appears somewhat underpenetrated however there is definite acute infiltrate bilaterally. History volume appears decreased however. PLEURA: No significant pleural effusion identified, no pneumothorax apparent. CARDIOVASCULAR: Technical magnification is likely in effect however mild cardiomegaly is also likely. Mild pulmonary venous congestion is questioned though the vessels may be accentuated by technique and obese body habitus. Further clinical correlation is advised. OSSEOUS STRUCTURES: No significant abnormalities. VISUALIZED UPPER ABDOMEN: Normal. OTHER FINDINGS: None. IMPRESSION: Although so definite infiltrate appreciated, mild CHF is questioned. Please see discussion above. Further clinical or correlation is advised. Emergency department has been informed by discrepancy note/PE review protocol.
[2017-05-02 08:41] LABS: ALB/GLOB RATIO 1.1 (1.1-1.8); CALCIUM 9.5 mg/dL (8.4-10.5)
--- NOTE | 2017-05-02 09:51 | CARD ---
APPROVED REPORT EKG Measurement Heart [id number] ID [id number] <Conclusion> Normal sinus rhythm Possible septal infarct, age undetermined No change
[2017-05-02] MEDS: cefTRIAXone 1 gm 1 GM/100 ML BAG IVPB SCH (10:26)
[2017-05-02] MEDS: Dextrose 5%/0.45% NS 1,000 ML IV SCH (12:17)
--- NOTE | 2017-05-02 12:21 | CP.PCM.CON ---
<Thania Ge - Last Filed: 05/02/17 12:22> History of Present Illness - History of Present Illness History of Present Illness: Seen and examined at bedside, chart reviewed. Request for consult: colitis VS Diverticulitis, vomiting. HPI: This is a 36 year old morbidly obese male with a history of Chronic pancreatitis, PUD, Cholecystectomy, HTN, came to the hospital with complaints of abdominal pain, LLQ and diarrhea for at least 2 days, He also reports having hematuria, this morning the urin is clear. He denies melena or BRBPR. He reports that he has been doing well until now, He has been following up with Dr. Pelayo at [facility], he saw him last month and he is waiting to get a phone call for EUS. He states that Monday he was doing well, he recall eating pastrami and vincentian cheese sandwich. No fever, chills, he did have nausea but no vomiting. His weight has been steady. No SOB or chest pain. He also does get heartburn he reports that he takes Protonix but no Pepcid. On admission he had ct scan of abdomen and pelvis and that reveals mural thickening in the sigmoid, likely colitis and mild diverticulitis. Also have a fullness in the left renal collection system, there is a new obstructing calculus. PMH CHF, hypertension, asthma, chronic pancreatitis, secondary to EtOH, sleep apnea, morbid obesity, GERD, diverticulitis, sleep apnea, left kidney cyst, ACute Renal failure secondary to dehydration Surgical HX: cholecystectomy, egd 07/2016, colon 2016 Family history: Noncontributory at this time Social history: Positive for smoking, ETOH in the past, denies current intake, denies recreational drugs Allergies: Kimani inhibitors Medications: Reviewed as per MAR ROS: Systems reviewed. Positive findings see HPI Past Patient History - Infectious Disease Hx of Infectious Diseases: None - Tetanus Immunizations Tetanus Immunization: Unknown - Past Medical History & Family History Past Medical History?: Yes - Past Social History Smoking Status: Heavy Smoker > 10 Cigarettes Daily - CARDIAC Hx Cardiac Disorders: Yes (cardiomyopathy) Hx Congestive Heart Failure: Yes Hx Hypertension: Yes - PULMONARY Hx Respiratory Disorders: No Hx Asthma: No - NEUROLOGICAL Hx Neurological Disorder: No - HEENT Hx HEENT Problems: No - RENAL Hx Chronic Kidney Disease: Yes Hx Kidney Stones: Yes Hx Renal Failure: Yes - ENDOCRINE/METABOLIC Hx Endocrine Disorders: No - HEMATOLOGICAL/ONCOLOGICAL Hx Blood Disorders: No - INTEGUMENTARY Hx Dermatological Problems: No - MUSCULOSKELETAL/RHEUMATOLOGICAL Hx Falls: No - GASTROINTESTINAL Hx Gastrointestinal Disorders: Yes (obese) Hx Diverticulitis: Yes Hx Gastroesophageal Reflux: Yes Hx Pancreatitis: Yes - GENITOURINARY/GYNECOLOGICAL Hx Genitourinary Disorders: Yes (urinary retention) - PSYCHIATRIC Hx Psychophysiologic Disorder: No - SURGICAL HISTORY Hx Cholecystectomy: Yes - ANESTHESIA Hx Anesthesia: Yes Hx Anesthesia Reactions: No Hx Malignant Hyperthermia: No Meds Allergies/Adverse Reactions: Allergies Allergy/AdvReac Type Severity Reaction Status Date / Time KIMANI Inhibitors Allergy ANGIOEDEMA Verified 11/09/16 12:51 - Medications Medications: Current Medications Acetaminophen (Tylenol 325mg Tab) 650 mg PO Q6H PRN PRN Reason: Fever >100.4 F Carvedilol (Coreg) 12.5 mg PO BID [facility] Last Admin: 05/02/17 10:26 Dose: 12.5 mg Hydromorphone HCl (Dilaudid) 2 mg IVP Q4H PRN PRN Reason: Pain, moderate (4-7) Last Admin: 05/02/17 07:52 Dose: 2 mg Dextrose/Sodium Chloride (Dextrose 5%/0.45% Ns 1000 Ml) 1,000 mls @ 100 mls/hr IV .Q10H [facility] Last Admin: 05/01/17 23:10 Dose: 100 mls/hr Metronidazole (Flagyl) 250 mg in 50 mls @ 100 mls/hr IV Q8 [facility] PRN Reason: Protocol Stop: 05/07/17 06:01 Last Admin: 05/02/17 06:15 Dose: 100 mls/hr Ceftriaxone Sodium (Rocephin 1 Gram Ivpb) 1 gm in 100 mls @ 100 mls/hr IVPB DAILY [facility] PRN Reason: Protocol Last Admin: 05/02/17 10:26 Dose: 100 mls/hr Ondansetron HCl (Zofran Inj) 4 mg IVP Q6H PRN PRN Reason: Nausea/Vomiting Last Admin: 05/02/17 07:57 Dose: 4 mg Pantoprazole Sodium (Protonix Inj) 40 mg IVP DAILY [facility] Last Admin: 05/02/17 10:26 Dose: 40 mg Spironolactone (Aldactone) 25 mg PO DAILY [facility] Last Admin: 05/02/17 10:26 Dose: 25 mg Physical Exam - Constitutional Appears: No Acute Distress - Head Exam Head Exam: NORMOCEPHALIC - Eye Exam Eye Exam: Normal appearance. absent: Scleral icterus - ENT Exam ENT Exam: Mucous Membranes Moist - Neck Exam Neck exam: Positive for: Normal Inspection - Respiratory Exam Respiratory Exam: Decreased Breath Sounds, NORMAL BREATHING PATTERN. absent: Rales, Wheezes, Respiratory Distress - Cardiovascular Exam Cardiovascular Exam: +S1, +S2 - GI/Abdominal Exam GI & Abdominal Exam: Soft, Tenderness (mild left lower quaderant). absent: Guarding, Organomegaly, Rebound - Extremities Exam Extremities exam: Positive for: pedal pulses present. Negative for: calf tenderness, pedal edema - Neurological Exam Neurological exam: Alert, Oriented x3 - Skin Skin Exam: Dry, Warm Results - Vital Signs Recent Vital Signs: Last Vital Signs Temp 97.9 F 05/02/17 08:23 Pulse 72 05/02/17 10:26 Resp 20 05/02/17 08:23 BP 138/91 H 05/02/17 10:26 Pulse Ox 95 05/02/17 08:23 - Labs Result Diagrams: 05/02/17 07:30 05/02/17 07:30 Labs: Laboratory Results - last 24 hr 05/02/17 05/02/17 07:30 07:30 WBC 10.4 RBC 3.69 Hgb 12.1 L Hct 36.7 L MCV 99.5 MCH 32.8 MCHC 33.0 RDW 13.4 Plt Count 256 MPV 9.4 Gran % 68.6 H Lymph % (Auto) 19.1 L [place] % (Auto) 11.6 H Eos % (Auto) 0.6 L Baso % (Auto) 0.1 Gran # 7.11 H Lymph # 2.0 [place] # 1.2 H Eos # 0.1 Baso # 0.01 Sodium 138 Potassium 3.9 Chloride 100 Carbon Dioxide 29 Anion Gap 13 BUN 26 H Creatinine 1.6 H Est GFR ( Amer) 59 Est GFR (Non-Af Amer) 49 Random Glucose 100 Calcium 9.5 Total Bilirubin 0.7 AST 32 ALT 25 Alkaline Phosphatase 66 Total Protein 7.5 Albumin 4.0 Globulin 3.5 Albumin/Globulin Ratio 1.1 Assessment & Plan - Assessment and Plan (Free Text) Assessment: ASSESSMENT: Acute Diverticultits, ? Colitis Left renal obstructing calculi Diarrhea Chronic Pancreatitis Morbildy Obsese Acute on Chronic Renal Failure PLAN: continue rocephin, flagyl NPO, continue IVF for hydration change Protonix to Pepcid 20 mg BID stool studies: cdiff/culture urology evaluation Discuss with patient that will be reducing his PPI, he takes Protonix 40 mg daily, chronic renal failure , he does get acid relfux, will put him on Pepcid 20 mg BID . Thank you for this consult and for allowing us to participate in your patient's care, will make further recommendation based upon clinical course. Seen and discussed with Dr. Choe. <Souleymane Choe V - Last Filed: 05/02/17 23:38> Meds - Medications Medications: Current Medications Acetaminophen (Tylenol 325mg Tab) 650 mg PO Q6H PRN PRN Reason: Fever >100.4 F Carvedilol (Coreg) 12.5 mg PO BID [facility] Last Admin: 05/02/17 17:43 Dose: 12.5 mg Hydromorphone HCl (Dilaudid) 2 mg IVP Q4H PRN PRN Reason: Pain, moderate (4-7) Last Admin: 05/02/17 20:40 Dose: 2 mg Dextrose/Sodium Chloride (Dextrose 5%/0.45% Ns 1000 Ml) 1,000 mls @ 100 mls/hr IV .Q10H [facility] Last Admin: 05/02/17 12:17 Dose: 100 mls/hr Metronidazole (Flagyl) 250 mg in 50 mls @ 100 mls/hr IV Q8 [facility] PRN Reason: Protocol Stop: 05/07/17 06:01 Last Admin: 05/02/17 22:22 Dose: 100 mls/hr Ceftriaxone Sodium (Rocephin 1 Gram Ivpb) 1 gm in 100 mls @ 100 mls/hr IVPB DAILY [facility] PRN Reason: Protocol Last Admin: 05/02/17 10:26 Dose: 100 mls/hr Famotidine (Pepcid 20mg/50ml Premix) 20 mg in 50 mls @ 100 mls/hr IVPB Q12 [facility] Last Admin: 05/02/17 23:12 Dose: 100 mls/hr Ondansetron HCl (Zofran Inj) 4 mg IVP Q6H PRN PRN Reason: Nausea/Vomiting Last Admin: 05/02/17 20:40 Dose: 4 mg Spironolactone (Aldactone) 25 mg PO DAILY [facility] Last Admin: 05/02/17 10:26 Dose: 25 mg Sucralfate (Carafate Oral Susp) 1 gm PO 0600,1600 [facility] Results - Vital Signs Recent Vital Signs: Last Vital Signs Temp 98.1 F 05/02/17 16:00 Pulse 68 05/02/17 17:43 Resp 20 05/02/17 16:00 BP 145/90 05/02/17 17:43 Pulse Ox 96 05/02/17 16:00 - Labs Result Diagrams: 05/02/17 07:30 05/02/17 07:30 Labs: Laboratory Results - last 24 hr 05/02/17 05/02/17 07:30 07:30 WBC 10.4 RBC 3.69 Hgb 12.1 L Hct 36.7 L MCV 99.5 MCH 32.8 MCHC 33.0 RDW 13.4 Plt Count 256 MPV 9.4 Gran % 68.6 H Lymph % (Auto) 19.1 L [place] % (Auto) 11.6 H Eos % (Auto) 0.6 L Baso % (Auto) 0.1 Gran # 7.11 H Lymph # 2.0 [place] # 1.2 H Eos # 0.1 Baso # 0.01 Sodium 138 Potassium 3.9 Chloride 100 Carbon Dioxide 29 Anion Gap 13 BUN 26 H Creatinine 1.6 H Est GFR ( Amer) 59 Est GFR (Non-Af Amer) 49 Random Glucose 100 Calcium 9.5 Total Bilirubin 0.7 AST 32 ALT 25 Alkaline Phosphatase 66 Total Protein 7.5 Albumin 4.0 Globulin 3.5 Albumin/Globulin Ratio 1.1 Assessment & Plan - Assessment and Plan (Free Text) Plan: is intolerant to GI consultation report dictated by Thania Ge APN. CT scan is reviewed on examination patient has tenderness in the epigastric and also left lower quadrant area no rebound or guarding His problems include a chronic pancreatitis status post celiac block the differential diagnosis should include Nonspecific colitis,diverticulitis plan Clear liquid diet Empiric antibiotic coverage Procedure vaginal support splenic elevation
[2017-05-02] MEDS: Famotidine 20mg/50ml 20 MG/50 ML BAG IVPB SCH (23:12)
[2017-05-03] MEDS: Dextrose 5%/0.45% NS 1,000 ML IV SCH ×3 (00:40→13:36)
[2017-05-03] MEDS: HYDROmorphone 2 mg/ml ISec IVP PRN ×6 (00:41→21:50)
[2017-05-03] MEDS: metroNIDAZOLE IV 250mg/50 ml 250 MG/50 ML BAG IV SCH ×3 (07:03→21:50)
[2017-05-03 07:35] LABS: ALB/GLOB RATIO 1.1 (1.1-1.8); ALBUMIN 3.6 g/dL (3.0-4.8); CALCIUM 8.9 mg/dL (8.4-10.5)
[2017-05-03] MEDS: Sucralfate 1 gm/10 ml Oral Susp UD PO SCH ×2 (09:09→17:47)
[2017-05-03] MEDS: Famotidine 20mg/50ml 20 MG/50 ML BAG IVPB SCH ×2 (11:40→21:50)
[2017-05-03] MEDS: cefTRIAXone 1 gm 1 GM/100 ML BAG IVPB SCH (11:40)
--- NOTE | 2017-05-03 14:12 | PN ---
DATE: 05/03/2017 SUBJECTIVE: The patient is 36-year-old seen and examined, complained of epigastric discomfort. States he is not making much urine, still has diarrhea off and on. PHYSICAL EXAMINATION VITAL SIGNS: He is afebrile. Pulse 65, respirations 20, blood pressure 128/86. LUNGS: Bilateral fair airflow. No rhonchi or crackles. HEART: S1 and S2 audible. ABDOMEN: Soft, obese, and nontender. No rebound. No guarding. NEUROLOGIC: He is awake and alert. Communicative. Bilateral leg +1 edema. LABORATORY DATA: WBC is 10.4, hemoglobin 12, hematocrit 36, platelet 256. Chemistry; sodium 135, potassium 3.8, chloride 99, CO2 of 27, BUN 18, creatinine 1.8, blood sugar of 98. ASSESSMENT: 1. Acute on chronic pancreatitis. 2. Renal insufficiency. 3. Hypertension. 4. Peptic ulcer disease. 5. Status post cholecystectomy. PLAN: Currently, the patient is on Coreg, spironolactone, he is getting IV fluid, he is on metronidazole, has been started on famotidine. Continue him on clear liquid. Awaiting Dr. Don and Dr. Florez's evaluation. I will continue analgesics. Monitor his electrolytes. Sammy Santiago MD
--- NOTE | 2017-05-03 14:20 | PN ---
GASTROINTESTINAL FOLLOWUP NOTE SUBJECTIVE: Seen and examined at the bedside earlier this morning. He denies any symptoms of nausea, or vomiting. Abdominal pain on left lower quadrant slightly better, but still present, requiring pain medication. No reports of any shortness of breath, chest pain, or overt GI bleed. Denies any diarrhea. So far, tolerated the clear liquid diet. PHYSICAL EXAMINATION VITAL SIGNS: Temperature is 98.1, blood pressure is 128/86, his pulse is 65, respirations are 20, and oxygen saturation is 97% on room air. HEENT: Sclerae is anicteric. NECK: Supple. CARDIAC: S1 and S2. LUNGS: Lung sounds; with decreased breath sounds, but good air entry. No rales or wheeze. ABDOMEN: With bowel sounds and soft. Mild tenderness to the left lower quadrant, but no rebound or guarding. He was just medicated 20 minutes prior to my arrival. LABORATORY DATA: Today CMP: Sodium is 135, his potassium is 3.8, the BUN is 18, and the creatinine 1.8. LFTs are within normal limits. ASSESSMENT: Abdominal pain is secondary to mild diverticulitis, [id number] renal failure, morbid obesity, chronic pancreatitis, leukocytes, and history of hypertension. PLAN: Currently on clear liquid diet. The patient does not want any advancement in his diet right now. Discussed if he tolerates liquids at lunch and abdominal pain is improved, consider advancing to full liquid for dinner. Continue IV antibiotics, he is on Rocephin and Flagyl. Currently on IV fluids and D5 half normal saline at 100. He is on GI prophylaxis of Pepcid b.i.d and Carafate. He is also on Coreg and Zofran p.r.n. nausea. The patient is awaiting Urology evaluation for ureter stone. Seen and discussed with Dr. Choe. AFUA [place] GEOVANNI
[2017-05-04] MEDS: HYDROmorphone 2 mg/ml ISec IVP PRN ×6 (02:04→22:16)
[2017-05-04] MEDS: Dextrose 5%/0.45% NS 1,000 ML IV SCH (04:52)
[2017-05-04] MEDS: metroNIDAZOLE IV 250mg/50 ml 250 MG/50 ML BAG IV SCH ×2 (05:51→14:05)
[2017-05-04] MEDS: Sucralfate 1 gm/10 ml Oral Susp UD PO SCH ×2 (05:51→16:42)
[2017-05-04 07:35] LABS: ALB/GLOB RATIO 1.1 (1.1-1.8); ALBUMIN 3.8 g/dL (3.0-4.8); CALCIUM 9.1 mg/dL (8.4-10.5)
--- NOTE | 2017-05-04 09:28 | PCM.URO ---
Urology Progress Note - Subjective Abdominal Pain: Yes (hematuria ) - Objective Lab Studies: Reviewed (possible work up --need to discuss timing /most likely if stable can be done outpt) Lab Results Last 24 Hours: Laboratory Results - last 24 hr 05/04/17 06:50 Sodium 134 Potassium 3.8 Chloride 99 Carbon Dioxide 28 Anion Gap 11 BUN 13 Creatinine 1.7 H Est GFR ( Amer) 55 Est GFR (Non-Af Amer) 45 Random Glucose 100 Calcium 9.1 Total Bilirubin 0.6 AST 22 ALT 21 Alkaline Phosphatase 60 Total Protein 7.2 Albumin 3.8 Globulin 3.4 Albumin/Globulin Ratio 1.1 Intake & Output: Intake & Output 05/03/17 05/04/17 05/04/17 18:59 06:59 18:59 Intake Total 360 Balance 360 Intake: Oral 360 Other: # Voids Straight 1 # Bowel Movements 0 Vital Signs: Vital Signs - 24 hr 05/03/17 05/03/17 17:13 17:47 Temperature 98.0 F Pulse Rate 65 65 Respiratory 20 Rate Blood Pressure 132/73 132/73 O2 Sat by Pulse 95 Oximetry
[2017-05-04] MEDS: cefTRIAXone 1 gm 1 GM/100 ML BAG IVPB SCH (09:58)
[2017-05-04] MEDS: Famotidine 20mg/50ml 20 MG/50 ML BAG IVPB SCH ×2 (11:28→23:00)
[2017-05-04] MEDS: Sodium Chloride 0.45% 1,000 ML IV SCH ×2 (11:29→23:45)
--- NOTE | 2017-05-04 11:53 | CP.PCM.PN ---
Subjective - Date & Time of Evaluation Date of Evaluation: 05/04/17 Time of Evaluation: 11:10 - Subjective Subjective: S&E at bedside, chart reviewed, had diarrhea after having milk, abdominal pain present bit no distress. No Fever, chill, N/V voiding, minimal blood. No overt GI bleeding reported. Objective - Vital Signs/Intake and Output Vital Signs (last 24 hours): Temp Pulse Resp BP Pulse Ox 98.0 F 70 20 139/87 95 05/03/17 17:13 05/04/17 09:57 05/03/17 17:13 05/04/17 09:57 05/03/17 17:13 Intake and Output: 05/04/17 05/04/17 06:59 18:59 Intake Total 360 Balance 360 - Medications Medications: Current Medications Acetaminophen (Tylenol 325mg Tab) 650 mg PO Q6H PRN PRN Reason: Fever >100.4 F Carvedilol (Coreg) 12.5 mg PO BID [facility] Last Admin: 05/04/17 09:57 Dose: 12.5 mg Hydromorphone HCl (Dilaudid) 2 mg IVP Q4H PRN PRN Reason: Pain, moderate (4-7) Last Admin: 05/04/17 09:57 Dose: 2 mg Metronidazole (Flagyl) 250 mg in 50 mls @ 100 mls/hr IV Q8 [facility] PRN Reason: Protocol Stop: 05/07/17 06:01 Last Admin: 05/04/17 05:51 Dose: 100 mls/hr Ceftriaxone Sodium (Rocephin 1 Gram Ivpb) 1 gm in 100 mls @ 100 mls/hr IVPB DAILY [facility] PRN Reason: Protocol Last Admin: 05/04/17 09:58 Dose: 100 mls/hr Famotidine (Pepcid 20mg/50ml Premix) 20 mg in 50 mls @ 100 mls/hr IVPB Q12 [facility] Last Admin: 05/04/17 11:28 Dose: 100 mls/hr Dextrose/Sodium Chloride (Dextrose 5%/0.45% Ns 1000 Ml) 1,000 mls @ 125 mls/hr IV .Q8H [facility] Last Admin: 05/04/17 04:52 Dose: 125 mls/hr Sodium Chloride (Sodium Chloride 0.45%) 1,000 mls @ 80 mls/hr IV .[id number] [facility] Last Admin: 05/04/17 11:29 Dose: 80 mls/hr Ondansetron HCl (Zofran Inj) 4 mg IVP Q6H PRN PRN Reason: Nausea/Vomiting Last Admin: 05/03/17 04:53 Dose: 4 mg Spironolactone (Aldactone) 25 mg PO DAILY [facility] Last Admin: 05/04/17 09:56 Dose: 25 mg Sucralfate (Carafate Oral Susp) 1 gm PO 0600,1600 [facility] Last Admin: 05/04/17 05:51 Dose: 1 gm - Labs Labs: 05/04/17 06:50 - Constitutional Appears: No Acute Distress - Head Exam Head Exam: NORMOCEPHALIC - Eye Exam Eye Exam: Normal appearance. absent: Nystagmus - ENT Exam ENT Exam: Mucous Membranes Moist - Neck Exam Neck Exam: Normal Inspection - Respiratory Exam Respiratory Exam: NORMAL BREATHING PATTERN. absent: Respiratory Distress - Cardiovascular Exam Cardiovascular Exam: +S1, +S2 - GI/Abdominal Exam GI & Abdominal Exam: Soft, Tenderness (mild, not as tender), Normal Bowel Sounds. absent: Guarding, Organomegaly, Rebound - Extremities Exam Extremities Exam: Pedal Edema - Neurological Exam Neurological Exam: Alert, Awake, Oriented x3 Assessment and Plan - Assessment and Plan (Free Text) Assessment: ASSESSMENT: Acute Diverticulitis, ? Colitis Left renal obstructing calculi Diarrhea Chronic Pancreatitis Morbildy Obese Acute on Chronic Renal Failure PLAN: continue rocephin, flagyl changed to full liquid lactose free/lowfat, if tolerate advance to low fiber, lactose free/low fat continue Pepcid 20 mg BID and carafate BID stool cdiff urology FU renal FU Seen and discussed with Dr. Choe.
--- NOTE | 2017-05-04 13:24 | PN ---
DATE: SUBJECTIVE: The patient is 36 years old black male, seen and examined, had episode of diarrhea this morning and very upset about it. Abdominal pain is almost gone. PHYSICAL EXAMINATION: VITAL SIGNS: He is afebrile. Pulse 70, respirations 20, blood pressure 139/87. LUNGS: Bilateral fair airflow. No rhonchi or crackles. HEART: S1 and S2, audible. ABDOMEN: Soft, nontender. No rebound. No guarding. NEUROLOGIC: The patient is awake and alert, able to communicate. LABORATORY DATA: WBC is 10.4, hemoglobin 12, hematocrit 36, and platelets of 256. Chemistry: Sodium 134, potassium 3.8, chloride 99, CO2 28, BUN 13, creatinine 1.7, blood sugar of 100. ASSESSMENT: Acute diverticulitis, [id number] renal failure, hypertension, chronic pancreatitis, status post celiac block. PLAN: We will advance his diet. It should be lactose free. We will continue IV fluid, start him on pancreatic enzyme and continue on Rocephin, Flagyl and Coreg. We will followup this patient in a.m. Followup with CBC and CMP in a.m. Sammy Santiago MD
[2017-05-04] MEDS: Amylase/Lipase/Protease 5,000 U ECC PO SCH (18:14)
--- NOTE | 2017-05-04 20:39 | CON ---
DATE: 05/04/2017 REASON FOR CONSULTATION: Acute kidney injury, hematuria and obstructive uropathy. HISTORY OF PRESENT ILLNESS: A 36-year-old young male known to me form prior evaluations, was admitted on 05/01/2017 with complaints of abdominal pain, nausea, vomiting of 2 days duration. The patient also reports, he was having blood in the urine intermittently for 2 weeks. Also complaining of burning in the urine. PAST MEDICAL HISTORY: The patient has a history of chronic pancreatitis, episodes of acute kidney injury in the setting of dehydration, severe hypertension, and left ventricular hypertrophy. On admission, CAT scan of his abdomen revealed a new obstructing calculus on the left system with mild hydronephrosis, colonic diverticula with pericolonic stranding, mild wall thickening of the sigmoid colon consistent with colitis. He was also found to have cardiomegaly. The patient was treated with IV fluids and IV antibiotics. His creatinine was 1.5 at the time of admission and it has risen to 1.8, hence consultation is requested. His baseline creatinine is around 1.3 to 1.4. PAST MEDICAL AND SURGICAL HISTORY: Severe hypertension, morbid obesity, left ventricular hypertrophy, chronic pancreatitis, peptic ulcer disease, alcohol abuse in the remote past. FAMILY HISTORY: Hypertension and diabetes. SOCIAL HISTORY: Active smoker, no alcohol abuse recently, no IV drug abuse. ALLERGIES: LUZ INHIBITORS. MEDICATIONS AT HOME: 1. Oxycodone. 2. Valsartan 40 mg daily. 3. Aldactone 25. 4. Protonix 40. 5. Zofran. 6. Dilaudid. 7. Lasix 40 daily. 8. Pepcid 20. 9. Coreg 12.5 b.i.d. 10. Pancreatic enzyme. REVIEW OF SYSTEMS: The patient reports intermittent hematuria, dysuria, abdominal pain, nausea. He denies any diarrhea. He denies any constipation. He denies any chest tightness. Denies any shortness of breath. All other systems are reviewed and unremarkable. PHYSICAL EXAMINATION: GENERAL: Morbidly obese young male, lying in bed. VITAL SIGNS: Blood pressure 139/87, heart rate 70, respiratory rate 20 and temperature 98.0. HEENT: Normocephalic and traumatic. Positive pallor. NECK: Supple. No JVD. LUNGS: Bilateral equal air entry, bilateral equal expansion. No rales. CARDIAC: S1 and S2. Regular rate and rhythm. No murmur. No rub. ABDOMEN: Obese, distended, soft and nontender. Bowel sounds are present. EXTREMITIES: No lower extremity edema. INTAKE AND OUTPUT: 3680/not charted. LABORATORY DATA: WBC 10.4, hemoglobin 12, hematocrit 37 and platelets 256. Sodium 134, potassium 3.8, chloride 99, CO2 of 28, BUN 13, creatinine 1.7, glucose 100, calcium 9.1, AST 22, ALT 21 and albumin 3.8. Urinalysis; yellow slightly cloudy, pH 6.0, specific gravity 1025, protein 30, blood large, leukocyte esterase trace. Urine culture no growth. CURRENT MEDICATIONS: Dilaudid, Flagyl, Pepcid, ceftriaxone, Tylenol, Zofran, D5 half normal saline at 100 which was discontinued yesterday. ASSESSMENT: 1. Acute kidney injury superimposed on chronic kidney disease stage II. 2. Colitis. 3. Left obstructing kidney stone. 4. Hematuria. 5. Chronic pain. 6. Hypertension. 7. Left ventricular hypertrophy. PLAN: 1. Restart IV fluid in the hope of excreting the stone. 2. Blood pressure is well controlled at this time, continue current management. 3. Continue IV antibiotics as per ID recommendations. 4. May need lithotripsy. Thank you for the courtesy of this consultation. We will follow this patient close to you. Angelica Don MD
[2017-05-05] MEDS: HYDROmorphone 2 mg/ml ISec IVP PRN ×6 (02:07→22:25)
[2017-05-05] MEDS: metroNIDAZOLE IV 250mg/50 ml 250 MG/50 ML BAG IV SCH ×4 (05:59→21:02)
[2017-05-05] MEDS: Sucralfate 1 gm/10 ml Oral Susp UD PO SCH ×2 (06:01→16:08)
[2017-05-05] MEDS: Amylase/Lipase/Protease 5,000 U ECC PO SCH ×3 (08:00→16:08)
[2017-05-05 08:08] LABS: ALB/GLOB RATIO 1.2 (1.1-1.8); ALBUMIN 3.7 g/dL (3.0-4.8); ALT/SGPT 19 U/L (7-56); AST/SGOT 18 U/L (15-59); BLOOD UREA NITROGEN 13 mg/dL (7-21); CALCIUM 9.2 mg/dL (8.4-10.5); GFR AFRICAN-AMERICAN > 60; GFR NON-AFRICAN AMERICAN 52
[2017-05-05] MEDS: cefTRIAXone 1 gm 1 GM/100 ML BAG IVPB SCH (10:04)
[2017-05-05] MEDS: Sodium Chloride 0.45% 1,000 ML IV SCH (10:08)
[2017-05-05] MEDS: Famotidine 20mg/50ml 20 MG/50 ML BAG IVPB SCH ×2 (11:32→22:25)
--- NOTE | 2017-05-05 15:45 | CP.PCM.PN ---
<Thania Ge - Last Filed: 05/05/17 15:44> Subjective - Date & Time of Evaluation Date of Evaluation: 05/05/17 Time of Evaluation: 10:40 - Subjective Subjective: seen and examined earlier today.patient denies any further diarrhea. Has not had any Zofran since yesterday. No new complaints. So far tolerated solids this morning. Last night he did not get his pancreatic enzyme so he didn't not really eat dinner. Objective - Vital Signs/Intake and Output Vital Signs (last 24 hours): Temp Pulse Resp BP Pulse Ox 97.9 F 64 20 137/90 96 05/05/17 08:00 05/05/17 09:59 05/05/17 08:00 05/05/17 09:59 05/05/17 08:00 Intake and Output: 05/05/17 05/05/17 06:59 18:59 Intake Total 1820 780 Output Total 1000 700 Balance 820 80 - Medications Medications: Current Medications Acetaminophen (Tylenol 325mg Tab) 650 mg PO Q6H PRN PRN Reason: Fever >100.4 F Amylase (Pancrease 73590 U-5000 U-80618 U) 15,000 u PO AC [facility] Last Admin: 05/05/17 11:34 Dose: 15,000 u Carvedilol (Coreg) 12.5 mg PO BID [facility] Last Admin: 05/05/17 09:59 Dose: 12.5 mg Hydromorphone HCl (Dilaudid) 2 mg IVP Q4H PRN PRN Reason: Pain, moderate (4-7) Last Admin: 05/05/17 14:24 Dose: 2 mg Metronidazole (Flagyl) 250 mg in 50 mls @ 100 mls/hr IV Q8 [facility] PRN Reason: Protocol Stop: 05/07/17 06:01 Last Admin: 05/05/17 14:13 Dose: 100 mls/hr Ceftriaxone Sodium (Rocephin 1 Gram Ivpb) 1 gm in 100 mls @ 100 mls/hr IVPB DAILY [facility] PRN Reason: Protocol Last Admin: 05/05/17 10:04 Dose: 100 mls/hr Famotidine (Pepcid 20mg/50ml Premix) 20 mg in 50 mls @ 100 mls/hr IVPB Q12 [facility] Last Admin: 05/05/17 11:32 Dose: 100 mls/hr Sodium Chloride (Sodium Chloride 0.45%) 1,000 mls @ 80 mls/hr IV .[id number] [facility] Last Admin: 05/05/17 10:08 Dose: 80 mls/hr Ondansetron HCl (Zofran Inj) 4 mg IVP Q6H PRN PRN Reason: Nausea/Vomiting Last Admin: 05/04/17 22:16 Dose: 4 mg Spironolactone (Aldactone) 25 mg PO DAILY [facility] Last Admin: 05/05/17 09:59 Dose: 25 mg Sucralfate (Carafate Oral Susp) 1 gm PO 0600,1600 [facility] Last Admin: 05/05/17 06:01 Dose: 1 gm - Labs Labs: 05/05/17 07:00 - Constitutional Appears: No Acute Distress - Head Exam Head Exam: NORMOCEPHALIC - Eye Exam Eye Exam: Normal appearance. absent: Scleral icterus - ENT Exam ENT Exam: Mucous Membranes Moist - Respiratory Exam Respiratory Exam: NORMAL BREATHING PATTERN. absent: Respiratory Distress - Cardiovascular Exam Cardiovascular Exam: +S1, +S2 - GI/Abdominal Exam GI & Abdominal Exam: Soft, Normal Bowel Sounds. absent: Guarding, Tenderness, Rebound - Extremities Exam Extremities Exam: Pedal Edema (mild). absent: Calf Tenderness - Neurological Exam Neurological Exam: Alert, Awake, Oriented x3 - Skin Skin Exam: Dry, Warm Assessment and Plan - Assessment and Plan (Free Text) Assessment: ASSESSMENT: Acute Diverticulitis Left renal obstructing calculi Positive C Diff Antigen Chronic Pancreatitis Morbildy Obese Acute on Chronic Renal Failure PLAN: continue rocephin, flagyl continue low fiber, lactose free/low fat continue Pepcid 20 mg BID and carafate BID Start Vanco PO, see orders urology FU renal FU Seen and discussed with Dr. Choe. <Souleymane Choe V - Last Filed: 05/06/17 00:04> Objective - Vital Signs/Intake and Output Vital Signs (last 24 hours): Temp Pulse Resp BP Pulse Ox 98.6 F 66 20 131/71 97 05/05/17 17:47 05/05/17 18:23 05/05/17 17:47 05/05/17 18:23 05/05/17 17:47 Intake and Output: 05/05/17 05/06/17 18:59 06:59 Intake Total 780 600 Output Total 700 Balance 80 600 - Medications Medications: Current Medications Acetaminophen (Tylenol 325mg Tab) 650 mg PO Q6H PRN PRN Reason: Fever >100.4 F Amylase (Pancrease 20814 U-5000 U-02650 U) 15,000 u PO AC [facility] Last Admin: 05/05/17 16:08 Dose: 15,000 u Carvedilol (Coreg) 12.5 mg PO BID [facility] Last Admin: 05/05/17 18:23 Dose: 12.5 mg Hydromorphone HCl (Dilaudid) 2 mg IVP Q4H PRN PRN Reason: Pain, moderate (4-7) Last Admin: 05/05/17 22:25 Dose: 2 mg Metronidazole (Flagyl) 250 mg in 50 mls @ 100 mls/hr IV Q8 [facility] PRN Reason: Protocol Stop: 05/07/17 06:01 Last Admin: 05/05/17 21:02 Dose: 100 mls/hr Ceftriaxone Sodium (Rocephin 1 Gram Ivpb) 1 gm in 100 mls @ 100 mls/hr IVPB DAILY [facility] PRN Reason: Protocol Last Admin: 05/05/17 10:04 Dose: 100 mls/hr Famotidine (Pepcid 20mg/50ml Premix) 20 mg in 50 mls @ 100 mls/hr IVPB Q12 [facility] Last Admin: 05/05/17 22:25 Dose: 100 mls/hr Sodium Chloride (Sodium Chloride 0.45%) 1,000 mls @ 80 mls/hr IV .[id number] [facility] Last Admin: 05/05/17 10:08 Dose: 80 mls/hr Ondansetron HCl (Zofran Inj) 4 mg IVP Q6H PRN PRN Reason: Nausea/Vomiting Last Admin: 05/04/17 22:16 Dose: 4 mg Spironolactone (Aldactone) 25 mg PO DAILY [facility] Last Admin: 05/05/17 09:59 Dose: 25 mg Sucralfate (Carafate Oral Susp) 1 gm PO 0600,1600 [facility] Last Admin: 05/05/17 16:08 Dose: 1 gm Vancomycin HCl (Vancocin 25 Mg/Ml (Oral Use)) 250 mg PO QID [facility] PRN Reason: Protocol Last Admin: 05/05/17 21:02 Dose: 250 mg - Labs Labs: 05/05/17 07:00 Attending/Attestation - Attestation I have personally seen and examined this patient.: Yes I have fully participated in the care of the patient.: Yes I have reviewed all pertinent clinical information, including history, physical exam and plan: Yes Notes (Text): p
[2017-05-05] MEDS: Vancomycin 25 MG/ML PO SCH ×2 (18:23→21:02)
--- NOTE | 2017-05-05 19:10 | PN ---
DATE: 05/05/2017 SUBJECTIVE: The patient is seen, lying in bed. He is awake. He is alert. He is comfortable. PHYSICAL EXAMINATION: GENERAL: Obese young male lying in bed. VITAL SIGNS: Blood pressure 137/90, heart rate 64, respiratory rate 20 and temperature 97.9. HEENT: Normocephalic and atraumatic. NECK: Supple, no JVD. LUNGS: Bilateral equal air entry, no rales. CARDIAC: S1 and S2, regular rate and rhythm, no murmur, no rubs. ABDOMEN: Obese, distended, soft, nontender, bowel sounds present. EXTREMITIES: Trace lower extremity edema. INTAKE AND OUTPUT: 194/1999. LABORATORY DATA: WBC 10, hemoglobin 12, hematocrit 37 and platelets 256. Sodium 136, potassium 3.9, chloride 102, CO2 of 25, BUN 13, creatinine 1.5, glucose 93, calcium 9.2, albumin 3.7. Urine culture, no growth. CURRENT MEDICATIONS: Aldactone 25 daily, Carafate, Coreg 12.5 b.i.d., Dilaudid, Flagyl, Pancrease, Pepcid, ceftriaxone 1 g daily, half-normal saline at 80, Tylenol, and Zofran. ASSESSMENT: 1. Resolving acute kidney injury, underlying chronic renal disease stage 2. 2. Severe hypertension. 3. Left ventricular hypertrophy. 4. Recurrent pancreatitis. 5. Left ureteral stone, left dilated collecting system. PLAN: 1. Renal function is improving, creatinine is coming down to baseline. The patient can be discharged home, provided he drinks a lot of water. 2. Repeat renal ultrasound/CAT scan in 1 week. 3. Continue antihypertensive. 4. Followup in the office. Angelica Don MD
[2017-05-06] MEDS: HYDROmorphone 2 mg/ml ISec IVP PRN ×6 (01:55→22:41)
[2017-05-06] MEDS: Sodium Chloride 0.45% 1,000 ML IV SCH (01:55)
--- NOTE | 2017-05-06 02:48 | CON ---
GENITOURINARY CONSULTATION DATE: 05/05/2017 CHIEF COMPLAINT: Obstructing upper left ureteral calculus. HISTORY OF PRESENT ILLNESS: A 36-year-old male with the past history of morbid obesity, currently weighing 380 pounds; although, he said he has lost over 100 pounds in the last year and half, with history of chronic pancreatitis was admitted with diverticulitis, he also was having some watery diarrhea, according to the nurses his C. diff antigen is positive, he is on Flagyl IV. A CAT scan was done showed a 9-mm obstructing left upper ureteral calculus. The patient has had intermittent hematuria for 2 weeks, no fever or chills. PAST MEDICAL HISTORY: Significant addition for cardiomyopathy from which he is recovered he said. Past history of alcohol abuse, but he currently does not drink, peptic ulcer disease and cholelithiasis. He has had a prior cholecystectomy. ALLERGIES: HE IS ALLERGIC TO LUZ INHIBITORS. MEDICATIONS: At home his medications include; oxycodone, losartan, Protonix, Zofran, Dilaudid, Lasix, Aldactone, Pepcid and Coreg. SOCIAL HISTORY: He still smokes. FAMILY HISTORY: Noncontributory. REVIEW OF SYMPTOMS: He is more comfortable now with less abdominal pain, no nausea or vomiting, no symptoms referral to the head, eyes, ears, nose and throat. No cardiac or respiratory symptoms at this time. He has limited because of his weight. PHYSICAL EXAMINATION: VITAL SIGNS: Shows him to be afebrile, pulse 64, blood pressure 137/90 and respirations 20. HEENT: Normocephalic. Sclerae are clear. Conjunctivae not injected. GENERAL: He is morbidly obese. NECK: He has no CVA pain. ABDOMEN: No hepatosplenomegaly, rebound or guarding. GENITOURINARY: Unremarkable. LABORATORY DATA: Lab work shows a white count of 10,400. His creatinine is 1.5 with a BUN of 13. His calcium is 9.2. His urine has 25 to 30 RBCs, 5 to 10 WBCs. Currently he is on 250 of Flagyl and Rocephin. He appears to also have been put on vancomycin 250 p.o. q.i.d. probably for the positive C. diff antigen. I reviewed the CAT scan, the patient was told of the findings, he will have a pigtail stent placed Monday morning which will give time to further treat the C. diff. At which point I will see whether it is radiopaque or not, if it is, he may have to loose weight before can be done. The patient is aware of plan. ADDENDUM: The actual measurement of this stone is 1.77 cm x 9 x 0.8 according to the CAT scan. Juan José Lange MD
--- NOTE | 2017-05-06 03:19 | PN ---
SUBJECTIVE: The patient is 36 years old seen and examined, doing well, eating and tolerating. No more hematuria. No fever. No chills. PHYSICAL EXAMINATION: VITAL SIGNS: Afebrile, pulse 64, respirations 20 and blood pressure 137/90. LUNGS: Bilateral fair airflow. No rhonchi or crackle. HEART: S1 and S2 audible. ABDOMEN: Soft, obese and nontender. No rebound. No guarding. NEUROLOGIC: He is awake and alert, able to communicate. LABORATORY DATA: Sodium 136, potassium 3.9, chloride 102, CO2 of 25, BUN 13, creatinine 1.5 and blood sugar of 93. GFR 52. ASSESSMENT: 1. Acute on chronic pancreatitis. 2. Acute on chronic renal failure. 3. Morbid obesity. 4. Cardiomyopathy. 5. Diverticulitis. 6. Improving renal insufficiency. PLAN: We will continue the patient on IV fluids and spironolactone. He is on Carafate. We will continue carvedilol and metronidazole. Pancreatic enzyme has been restarted. He is currently on Rocephin. Discussed with Dr. Lange, he might see the patient tonight and make further plan. He might need stent placed as outpatient and if he continue to tolerate his food and after seen by Dr. Lange, he will make a discharge plan. Sammy Santiago MD
[2017-05-06] MEDS: Sucralfate 1 gm/10 ml Oral Susp UD PO SCH ×2 (06:05→20:15)
[2017-05-06] MEDS: metroNIDAZOLE IV 250mg/50 ml 250 MG/50 ML BAG IV SCH ×3 (06:05→22:36)
[2017-05-06] MEDS: Amylase/Lipase/Protease 5,000 U ECC PO SCH ×3 (10:37→20:16)
--- NOTE | 2017-05-06 10:37 | PN ---
SUBJECTIVE: The patient is currently seen on 5-R. He is lying comfortable in bed. IV fluids are infusing. The patient has scheduled for an ureteral stent in replacement for an obstructive left ureter on Monday05/08/[address] Lange. The patient states he has no significant diarrhea and he does have Clostridium difficile in the stool. MEDICATIONS: Medication list reviewed. The patient is currently on Aldactone, Carafate, Coreg, Dilaudid, Flagyl, Pancrease, Pepcid, Rocephin, IV fluids, half-normal saline, Tylenol and Zofran. OBJECTIVE: GENERAL: I's and O's are not charted. VITAL SIGNS: Blood pressure of 132/72, temperature of 98.7, and respiratory rate of 20, with a heart rate of 67. HEENT: Shows him to be normocephalic and atraumatic. Conjunctivae are pink. Sclerae are nonicteric. NECK: Supple. No neck vein distention. CHEST: Clear to auscultation and percussion. No rales, no rhonchi, and no wheezing. CARDIOVASCULAR: Shows irregular rate and rhythm without murmurs, rubs or gallops. ABDOMEN: Soft. Obese. No distension. Bowel sounds are normal. No rebound. No guarding. EXTREMITIES: Show no lower extremity pitting edema. No cyanosis and no clubbing. LABORATORY DATA AND IMAGING: CBC; white blood cell count of 10.4, hemoglobin of 12.1, and platelet count is 256,000. Electrolytes are normal. BUN is 13 with creatinine of 1.5. His BUN is down form 30 to 13 and creatinine has gone from 1.5 to 1.8, to 1.5, he is currently at his baseline creatinine level. Microbiology stools are positive for C. diff. Urine cultures are negative. ASSESSMENT: 1. Acute rise in BUN and creatinine, perhaps secondary to volume depletion, perhaps secondary to a left ureteral stone obstruction. The patient is scheduled for decompression of the left collecting systems on Monday, it is 05/08/[address] Lange, to have a stent placed. 2. Chronic kidney diseases stage II. The patient is back to baseline levels. 3. History of hypertension, blood pressure is controlled on present medical therapy. 4. History of pancreatitis. The patient will continue pancreatic enzymes replacement therapy. 5. History of left ureteral stone with dilated left collecting system. The patient is scheduled for decompression on Monday. 6. Pseudomembranous colitis with Clostridium difficile. The patient will continue oral vancomycin therapy, according to the patient diarrhea as resoled. The patient does have occasional loose stools. PLAN: 1. Continue to monitor accurate I's and O's over the weekend. 2. Continue IV fluid hydration. 3. Agree with plan for decompression of the left ureteral obstruction, with placement of a ureteral stent. 4. Continue present blood pressure medications. 5. Continue treatment for Clostridium difficile. Sean Reich MD MTDD
[2017-05-06] MEDS: Vancomycin 25 MG/ML PO SCH ×4 (10:42→21:36)
--- NOTE | 2017-05-06 13:32 | PN ---
SUBJECTIVE: The patient is 36-year-old, seen and examined, lying in bed, seems to be comfortable. He states diarrhea seems to be improving. He has flank pain and . No more hematuria. Eating and tolerating. PHYSICAL EXAMINATION: VITAL SIGNS: He is afebrile, pulse 67, respirations 20, and blood pressure 132/72. LUNGS: Bilateral fair airflow. No rhonchi or crackle. HEART: S1 and S2 audible. ABDOMEN: Soft, obese and nontender. No rebound. No guarding. NEUROLOGIC: The patient is awake and alert, able to communicate, ambulatory. ASSESSMENT AND PLAN: 1. Episode of hematuria. 2. Nephrolithiasis. 3. Acute on chronic pancreatitis. 4. Diverticulitis. 5. Hypertension. 6. Chronic kidney disease. PLAN: Continue the patient on IV fluid as per ID. He will continue analgesic. He is on metronidazole. He is on p.o. vanco. He is scheduled to have stent placed on Monday because his creatinine is not improving in spite of correcting prerenal azotemia. Sammy Santiago MD
[2017-05-06] MEDS: Famotidine 20mg/50ml 20 MG/50 ML BAG IVPB SCH ×2 (14:46→21:36)
[2017-05-06] MEDS: cefTRIAXone 1 gm 1 GM/100 ML BAG IVPB SCH (18:50)
[2017-05-07] MEDS: HYDROmorphone 2 mg/ml ISec IVP PRN ×6 (02:45→22:51)
[2017-05-07] MEDS: Sucralfate 1 gm/10 ml Oral Susp UD PO SCH ×2 (04:59→16:35)
[2017-05-07] MEDS: metroNIDAZOLE IV 250mg/50 ml 250 MG/50 ML BAG IV SCH (04:59)
[2017-05-07] MEDS: Sodium Chloride 0.45% 1,000 ML IV SCH ×2 (05:06→18:48)
[2017-05-07 07:59] LABS: HEMOGLOBIN 11.3 gm/dL (14.0-18.0); MEAN CELL VOLUME 98.6 fL (80.0-105.0); MEAN CORPUSCULAR HEMOGLOBIN 32.5 pg (25.0-35.0); MEAN CORPUSCULAR HGB CONC 32.9 g/dl (31.0-37.0); MEAN PLATELET VOLUME 9.9 fl (7.0-11.0); RBC 3.48 10^6/uL (3.5-6.1); RED CELL DISTRIBUTION WIDTH 13.2 % (11.5-14.5); WHITE BLOOD COUNT 8.3 10^3/ul (4.5-11.0)
[2017-05-07] MEDS: Amylase/Lipase/Protease 5,000 U ECC PO SCH ×3 (08:20→16:35)
[2017-05-07 08:23] LABS: ALBUMIN 3.7 g/dL (3.0-4.8); CALCIUM 9.2 mg/dL (8.4-10.5)
[2017-05-07] MEDS: Famotidine 20mg/50ml 20 MG/50 ML BAG IVPB SCH ×2 (10:40→21:55)
[2017-05-07] MEDS: Vancomycin 25 MG/ML PO SCH ×4 (10:40→21:56)
[2017-05-07] MEDS: cefTRIAXone 1 gm 1 GM/100 ML BAG IVPB SCH (11:40)
[2017-05-08] MEDS: Sodium Chloride 0.45% 1,000 ML IV SCH ×2 (02:09→20:55)
[2017-05-08] MEDS: HYDROmorphone 2 mg/ml ISec IVP PRN ×5 (02:39→23:31)
[2017-05-08] MEDS: Sucralfate 1 gm/10 ml Oral Susp UD PO SCH ×2 (06:00→16:58)
[2017-05-08] MEDS ORDERED: Lidocaine 2% Jelly (Uro-Jet) ONE (07:25)
[2017-05-08] MEDS ORDERED: Iohexol 240 (50 ml) ONE (07:26)
[2017-05-08] MEDS ORDERED: Lidocaine 2% Inj (20ml) ONE (07:36)
[2017-05-08] MEDS ORDERED: Midazolam 2 MG/2 ML VIAL ONE (07:36)
[2017-05-08] MEDS ORDERED: Propofol 10 mg/ml Inj (20 ML) ONE (07:36)
[2017-05-08] MEDS ORDERED: cefTRIAXone (Rocephin) 1 gm Inj ONE (07:49)
[2017-05-08] MEDS ORDERED: HYDROmorphone 0.5 mg/0.5 ml ISec IVP PRN (08:27)
[2017-05-08] MEDS ORDERED: Lactated Ringer's 1,000 ML IV SCH (08:27)
[2017-05-08] MEDS ORDERED: HYDROmorphone 0.5 mg/0.5 ml ISec ONE (08:49)
--- NOTE | 2017-05-08 10:14 | RAD ---
PROCEDURE: Fluoroscopy up to 1 hour HISTORY: LT STENT INSERTION COMPARISON: TECHNIQUE: Fluoroscopy was provided in the operating room. 43 seconds of fluoro time were used. 7 images submitted FINDINGS: The study shows placement of a left ureteral stent IMPRESSION: As above
[2017-05-08] MEDS: Famotidine 20mg/50ml 20 MG/50 ML BAG IVPB SCH ×2 (12:02→22:36)
--- NOTE | 2017-05-08 12:33 | OP ---
PROCEDURE DATE: 05/08/2017 PREOPERATIVE DIAGNOSIS: Obstructing left ureteral calculus. POSTOPERATIVE DIAGNOSIS: Obstructing left ureteral calculus. PROCEDURES: Cystoscopy, ureteral dilatation, insertion of left pigtail stent. SURGEON: Juan José Lange MD TYPE OF ANESTHESIA: LMA. DESCRIPTION OF OPERATION: After adequate LMA anesthesia was given, the patient was placed in lithotomy position, prepped and draped in the usual manner. A 22-[place] cystourethroscope was introduced under direct vision. There was a wide-caliber urethral stricture that would not easily admit the 22-[place] scope. Rather than trying to pass it, I removed the 22-[place] scope and used the 17-[place] scope to go through the strictured area easily, placed the sensorwire in the bladder and back loaded the sensorwire one through the 22-[place] scope and then I could easily go through that wide caliber stricture into the bladder. Bladder showed no tumors, foreign bodies or stones. Orifices normal in appearance and location. I did not see efflux from the left, clear from the right. An open-ended catheter was placed at the opening of the left ureteral orifice. A Glidewire was advanced up the left ureter into the kidney under fluoroscopic control. The open-ended catheter was slid over the Glidewire into the kidney. The Glidewire was removed and the 0.35 sensorwir was then placed. The open-ended catheter was removed over the sensorwire. Over the sensorwire, a variable length 20 to 32 cm pigtail stent was placed. When properly placed, they coiled nicely in the left renal pelvis and in the bladder. The bladder was drained. Prior to insertion of the stent, urine was obtained for C&S. The cystoscope was removed. The patient was awakened and taken to the recovery room in good condition. Juan José Lange MD
--- NOTE | 2017-05-08 12:42 | RAD ---
HISTORY: is lt ureteral stone visible? COMPARISON: CT 05/01/2017 FINDINGS: BOWEL: Normal. No obstruction. No free air. BONES: Normal. OTHER FINDINGS: Left ureteral stent. The stone demonstrated on CT appears to be in the renal pelvis just above the proximal pigtail. IMPRESSION: As above
--- NOTE | 2017-05-08 13:59 | PN ---
DATE: 05/08/2017 SUBJECTIVE: The patient is 36 years old. He is seen and examined. He underwent cystoscopy and had pigtail catheter placed. PHYSICAL EXAMINATION GENERAL: On examination, he complained of epigastric discomfort and complained of back pain. He had left ureteral stent placed today, this morning. VITAL SIGNS: He is afebrile, pulse is 60, respirations are 14, and blood pressure is 134/76. LUNGS: Bilateral fair airflow. No rhonchi or crackle. HEART: S1 and S2 audible. ABDOMEN: Soft and nontender. No rebound and no guarding. NEUROLOGIC: The patient is awake and alert. Able to communicate. LABORATORY EXAM: There is no new blood work available today. ASSESSMENT AND PLAN: 1. Nephrolithiasis. 2. Renal insufficiency. 3. Acute on chronic pancreatitis. 4. Diverticulitis. 5. Morbid obesity. So, the plan is, we will continue patient on IV fluids. CBC and CMP has been requested. Continue him on Coreg. Continue him on Rocephin and vancomycin for positive Clostridium difficile. Followup CBC and CMP. Sammy Alberto MD MTDSusan
[2017-05-08] MEDS: cefTRIAXone 1 gm 1 GM/100 ML BAG IVPB SCH (14:40)
[2017-05-08] MEDS: Amylase/Lipase/Protease 5,000 U ECC PO SCH ×2 (14:40→16:58)
[2017-05-08] MEDS: Vancomycin 25 MG/ML PO SCH ×3 (14:41→23:31)
[2017-05-08 17:24] VITALS: RESP 20; O2SAT 98
--- NOTE | 2017-05-08 17:41 | PN ---
DATE: 05/08/2017 SUBJECTIVE: The patient is seen, sitting in bed. He is awake. He is alert. He is comfortable. He is just returning from left ureteral stent placement. He still complains of some pain. He also complains of blood in the urine. He denies any shortness of breath, chest tightness. PHYSICAL EXAMINATION: GENERAL: Morbidly obese, middle aged male, sitting in bed. VITAL SIGNS: Blood pressure 134/76, heart rate 60, respiratory rate 14 and temperature 98. HEENT: Normocephalic, atraumatic, positive pallor NECK: Supple, no JVD. LUNGS: Bilateral equal air entry, no rales. CARDIAC: S1 and S2, regular rate and rhythm, no murmur, no rubs. ABDOMEN: Obese, distended, soft, nontender, bowel sounds present. EXTREMITIES: No lower extremity edema. INTAKE AND OUTPUT: 2190/2225. LABORATORY DATA: WBC 8, hemoglobin 11, hematocrit 34 and platelets 249. Sodium 134, potassium 4.2, chloride 101, CO2 of 24, BUN 16, creatinine 1.6, glucose 93, calcium 9.2, phosphorous 4.2, magnesium 2.0, albumin 3.7. Urine culture no growth. C. diff antigen, positive; toxin, negative. CURRENT MEDICATIONS: Aldactone 25 daily, Carafate, Coreg 12.5 b.i.d., Dilaudid, Pancreaze, Pepcid, Pyridium, ceftriaxone 1 gm daily, half normal saline at 80, Tylenol, vancomycin 250 p.o. q.i.d. and Zofran. ASSESSMENT: 1. Acute kidney injury, superimposed on chronic kidney disease stage II. 2. Left hydronephrosis, left ureteral calculus, status post stent placement. 3. Recurrent pancreatitis. 4. Diverticulitis. 5. Morbid obesity. 6. Hypertension. 7. Left ventricular hypertrophy. PLAN: 1. Continue hypotonic IV fluid till tomorrow morning. 2. Monitor urine output. 3. Avoid nephrotoxins. 4. Discharge planning. Angelica Don MD
[2017-05-09] MEDS: HYDROmorphone 2 mg/ml ISec IVP PRN ×3 (03:30→11:39)
[2017-05-09] MEDS: Sucralfate 1 gm/10 ml Oral Susp UD PO SCH (05:41)
[2017-05-09] MEDS: Amylase/Lipase/Protease 5,000 U ECC PO SCH ×2 (08:00→11:38)
[2017-05-09 08:12] VITALS: TEMP 98.1
[2017-05-09 08:29] LABS: HEMOGLOBIN 11.4 g/dL (14.0-18.0); MEAN CELL VOLUME 98.6 fl (80.0-105.0); MEAN CORPUSCULAR HEMOGLOBIN 32.3 pg (25.0-35.0); MEAN CORPUSCULAR HGB CONC 32.8 g/dl (31.0-37.0); MEAN PLATELET VOLUME 9.6 fl (7.0-11.0); RBC 3.53 10^6/uL (3.5-6.1); WHITE BLOOD COUNT 8.3 10^3/ul (4.5-11.0)
[2017-05-09 08:55] LABS: ALB/GLOB RATIO 1.1 (1.1-1.8); ALBUMIN 3.9 g/dL (3.0-4.8); ALT/SGPT 25 U/L (7-56); AST/SGOT 31 U/L (15-59); BLOOD UREA NITROGEN 16 mg/dL (7-21); CALCIUM 9.3 mg/dL (8.4-10.5); GFR AFRICAN-AMERICAN > 60; GFR NON-AFRICAN AMERICAN > 60
[2017-05-09 09:54] VITALS: BP 125/80; PULSE 70
[2017-05-09] MEDS: Vancomycin 25 MG/ML PO SCH (10:34)
[2017-05-09] MEDS: Famotidine 20mg/50ml 20 MG/50 ML BAG IVPB SCH (10:34)
[2017-05-09] MEDS: cefTRIAXone 1 gm 1 GM/100 ML BAG IVPB SCH (10:49)
--- NOTE | 2017-05-09 13:57 | PN ---
DATE: SUBJECTIVE: The patient is currently seen lying supine in bed on 5-R. No further diarrhea, no loose stools. The patient is being treated for C. diff colitis. He is status post placement of a left ureteral stent for obstructive uropathy. His creatinine is down to baseline level of 1.3. The patient's urine remains dark. He remains on IV fluid hydration along with oral fluid hydration. MEDICATION: Medication list reviewed. The patient is currently on Aldactone, Carafate, Coreg, Dilaudid, pancreatic enzymes, Pepcid, Pyridium, Rocephin, half-normal saline at 80 mL an hour, Tylenol p.r.n., oral vancomycin and Zofran p.r.n. OBJECTIVE: INTAKE/OUTPUT: Intake 760, output 1100. VITAL SIGNS: Blood pressure 125/80, temperature 98.1, respiratory rate 20 with a pulse of 70. HEENT: Shows him to be normocephalic and atraumatic. Conjunctive are pink. Sclerae are nonicteric. NECK: Supple. No neck vein distention. CHEST: Clear to auscultation and percussion. No rales, no rhonchi, and no wheezing. CARDIOVASCULAR: Shows a regular rate and rhythm without murmurs, robs or gallops. ABDOMEN: Soft. Bowel sounds are normal. No distension, obese. No rebound. No guarding. EXTREMITIES: Show no lower extremity pitting edema. No cyanosis and no clubbing. LABORATORY DATA AND IMAGING: CBC: White blood cell count today done to 8.3, hemoglobin is stable at 11.4, platelet count is 256,000. Chemistry show normal electrolytes, BUN 16, creatinine of 1.3. BUN is down form a high of 30. Creatinine is down form a high of 1.8. He is currently at baseline levels. Microbiology: Stool is positive for C. diff on 05/04/2017. Urine cultures were negative. ASSESSMENT: 1. Status post acute renal failure. BUN and creatinine are back to normal. The patient had a left ureteral stone, which was obstructing. He is status post placement of a stent with dark colored urine. The patient will continue oral fluid hydration. From my standpoint, IV fluids may be discontinued as long as the patient has no clots in his urine. 2. History of chronic kidney diseases stage II stable. The patient is back to baseline levels. 3. History of hypertension. Blood pressure controlled on present medication. 4. History of pancreatitis. The patient will continue pancreatic enzyme replacement therapy. 5. History of ureteral stone with dilated left collecting system. This was decompressed yesterday with placement of a left ureteral stent. 6. History of pseudomembranous colitis with Clostridium difficile. The patient will continue with full course of oral vancomycin. PLAN: 1. As long as the patient is an inpatient, continue to monitor Is and Os. 2. From my standpoint, IV fluids may be discontinued as long as the patient can maintain an adequate amount of oral fluid hydration. 3. Continue present blood pressure medication. 4. Continue treatment for C diff colitis. Sean Reich MD
--- NOTE | 2017-05-09 18:07 | PN ---
DATE: 05/07/2017 HISTORY OF PRESENT ILLNESS: The patient was admitted with hematuria. He has iron deficiency anemia and chronic kidney disease. Currently, he is getting IV hydration. Hematuria has improved. He is able to tolerate oral. REVIEW OF SYSTEMS: As per HPI. Rest of the 12-point review of systems reviewed and negative. PHYSICAL EXAMINATION GENERAL: Comfortable in bed, in no acute distress. VITAL SIGNS: Temperature 98.7, heart rate 80 per minute, respiratory rate 20 per minute, blood pressure 130/70. NECK: No lymphadenopathy. CHEST: Air entry present and equal bilaterally. No added sounds. CARDIOVASCULAR: S1 and S2 normal. No murmur. No gallop. ABDOMEN: Soft and nontender, obese. NEUROLOGIC: Awake, alert, and oriented x3. No focal sensory or motor deficits. MEDICATIONS: Reviewed. ASSESSMENT: 1. Hematuria. 2. Anemia. 3. Iron deficiency. 4. Chronic kidney disease. 5. Acute on chronic pancreatitis. 5. Hypertension. PLAN: He will continue IV hydration. IV antibiotics as per ID. He is currently on Flagyl. Prerenal azotemia improving. Hematuria improved. Talita Spears MD
--- NOTE | 2017-05-10 04:53 | DS ---
HISTORY OF PRESENT ILLNESS: The patient is a 36-year-old, who came to the emergency room because of left flank pain, epigastric pain, nausea, and diarrhea. The patient is a known case of recurrent pancreatitis. He was also found to be in acute renal insufficiency, has been on IV fluids. He did have episode of hematuria. He was found to have left ureteric stone and nephrolithiasis with mild hydronephrosis. Dr. Lange was called. The patient had left stent placed. Significant improvement in his renal insufficiency. PHYSICAL EXAMINATION: GENERAL: Today, he is awake and alert. VITAL SIGNS: He is afebrile. Pulse 69, respirations 20, blood pressure 125/81. LUNGS: Bilateral clear airflow. No rhonchi or crackles. HEART: S1, S2 audible. ABDOMEN: Soft, nontender. No rebound, no guarding. NEUROLOGIC: He is awake and alert. Able to communicate, ambulatory. LABORATORY DATA: WBC is 8.3, hemoglobin 11.4, hematocrit 34.8, platelets of 256. Chemistry, sodium 136, potassium 4.3, chloride 103, CO2 of 24, BUN 16, creatinine 1.3, blood sugar of 93. ASSESSMENT: 1. Nephrolithiasis and hematuria. 2. Recurrent pancreatitis. 3. Hypertension. 4. Hyperlipidemia. 5. Status post cholecystectomy. PLAN: The patient will be advised to stop taking Protonix. Continue on Pepcid. He is also advised to followup with Dr. Lange, and he will resume all his medications as prior to admission including Aldactone, Lasix, Pepcid, Coreg, and Diovan, and he will resume his Zenpep hormones and supplement. We will follow him as outpatient. Sammy Santiago MD
== END 2017-05-09 14:11 | disposition home or self-care (01) | DRG 693 ==
LOC: ED 15:48 → ERH 21:19 → 5RSO 23:29 → OBSVTOIN 05-03 12:45
PROVIDERS: ADMIT Internal Medicine; ATTEND Internal Medicine
PROC: 0T7D8ZZ Dilation of Urethra, Via Natural or Artificial Opening Endoscopic (ICD-10-PCS; 2017-05-08)
PROC: 0T778DZ Dilation of Left Ureter with Intraluminal Device, Via Natural or Artificial Opening Endoscopic (ICD-10-PCS; principal; 2017-05-08 07:30)
DX: N13.2 Hydronephrosis with renal and ureteral calculous obstruction (principal); K85.90 Acute pancreatitis without necrosis or infection, unspecified; N17.9 Acute kidney failure, unspecified; I42.9 Cardiomyopathy, unspecified; A04.7 Enterocolitis due to Clostridium difficile; K57.32 Diverticulitis of large intestine without perforation or abscess without bleeding; I13.0 Hypertensive heart and chronic kidney disease with heart failure and stage 1 through stage 4 chronic kidney disease, or unspecified chronic kidney disease; K86.1 Other chronic pancreatitis; I50.9 Heart failure, unspecified; N35.9 Urethral stricture, unspecified; N18.2 Chronic kidney disease, stage 2 (mild); E66.01 Morbid (severe) obesity due to excess calories; E86.0 Dehydration; F17.200 Nicotine dependence, unspecified, uncomplicated; E78.5 Hyperlipidemia, unspecified; K21.9 Gastro-esophageal reflux disease without esophagitis; J45.909 Unspecified asthma, uncomplicated; G47.30 Sleep apnea, unspecified; N28.1 Cyst of kidney, acquired; G89.29 Other chronic pain; D50.9 Iron deficiency anemia, unspecified; Z87.11 Personal history of peptic ulcer disease

== ENCOUNTER 2017-08-22 13:57 | Inpatient (IN) | payer BC ==
[2017-08-22 13:58] VITALS: BMI 50.0
[2017-08-22 15:01] LABS: BASO # 0.02 K/mm3 (0.0-2.0); BASO % 0.2 % (0.0-3.0); EOS # 0.1 (0.0-0.7); EOS % 0.7 % (1.5-5.0); GRAN # 10.06 (1.4-6.5); GRAN % 77.8 % (50.0-68.0); HEMATOCRIT 36.8 % (42.0-52.0); LYMPH # 1.2 (1.2-3.4); LYMPH % 9.1 % (22.0-35.0); MEAN CELL VOLUME 95.1 fl (80.0-105.0); MEAN CORPUSCULAR HEMOGLOBIN 31.8 pg (25.0-35.0); MEAN CORPUSCULAR HGB CONC 33.4 g/dl (31.0-37.0); MEAN PLATELET VOLUME 10.8 fl (7.0-11.0); MONO # 1.6 (0.1-0.6); MONO % 12.2 % (1.0-6.0); RED CELL DISTRIBUTION WIDTH 14.2 % (11.5-14.5); WHITE BLOOD COUNT 12.9 10^3/ul (4.5-11.0)
--- NOTE | 2017-08-22 15:02 | RAD ---
HISTORY: SOB COMPARISON: 08/02/2017 FINDINGS: LUNGS: No active pulmonary disease. PLEURA: No significant pleural effusion identified, no pneumothorax apparent. CARDIOVASCULAR: Moderate to severe cardiomegaly with moderate vascular congestion. OSSEOUS STRUCTURES: No significant abnormalities. VISUALIZED UPPER ABDOMEN: Normal. OTHER FINDINGS: None. IMPRESSION: Moderate to severe cardiomegaly with moderate vascular congestion.
[2017-08-22 15:11] LABS: INR 1.19 (0.93-1.08)
[2017-08-22 15:33] LABS: VENOUS BLOOD GAS BASE EXCESS -0.4 mmol/L (0.0-2.0); VENOUS BLOOD PH 7.36 (7.32-7.43)
[2017-08-22 15:41] LABS: TROPONIN I 0.05 ng/mL
[2017-08-22] MEDS ORDERED: HYDROmorphone 1 mg/ml ISec IVP STA ×3 (15:45→20:39)
[2017-08-22 16:42] LABS: ALB/GLOB RATIO 0.9 (1.1-1.8); BILIRUBIN,TOTAL 0.7 mg/dL (0.2-1.3); CALCIUM 9.1 mg/dL (8.4-10.5); POTASSIUM 5.1 mmol/L (3.6-5.0); TOTAL PROTEIN 7.7 g/dL (5.8-8.3)
[2017-08-22 17:20] LABS: URINE BILIRUBIN NEGATIVE (NEGATIVE); URINE BLOOD MODERATE (NEGATIVE); URINE GLUCOSE (UA) NEGATIVE (NEGATIVE); URINE KETONE NEGATIVE (NEGATIVE); URINE LEUKOCYTE ESTERASE MODERATE Leu/uL (NEGATIVE); URINE PROTEIN 100 mg/dL (<30 mg/dL); URINE UROBILINOGEN 0.2 E.U./dL (<1 E.U./dL)
[2017-08-22 17:24] LABS: URINE COLOR YELLOW (YELLOW)
[2017-08-22 17:25] LABS: URINE APPEARANCE SL CLOUDY (CLEAR)
[2017-08-22 17:33] LABS: URINE WBC 25 - 30 /hpf (0-6)
[2017-08-22 17:34] LABS: URINE BACTERIA FEW (NEG)
--- NOTE | 2017-08-22 17:39 | ED PDOC ---
Arrival/HPI - General Chief Complaint: Abdominal Pain Time Seen by Provider: 08/22/17 14:05 Historian: Patient - History of Present Illness Narrative History of Present Illness (Text): 08/22/17 17:36 36yo morbidly obese male with PMHx significant for Cardiomyopathy, hypertension , chronic pancreatitis, renal colic, and diverticulitis present with complaint of LUQ abdominal pain that radiates to his back and worsening dyspnea. Notes that he stopped taking his Lasix over the weekend because he was having urinary frequency. Reports worsening swelling of his b/l LE. Denies chest pain, fever, chills, nausea, vomiting, diarrhea, constipation, any other complaint. He had a stent placed, that was recently removed. Past Medical History - Provider Review Nursing Documentation Reviewed: Yes - Past History Past History: Non-Contributing - Infectious Disease Hx of Infectious Diseases: None - Tetanus Immunization Tetanus Immunization: Unknown - Reproductive Currently : No - Cardiac Hx Cardiac Disorders: Yes (cardiomyopathy) Hx Congestive Heart Failure: Yes Hx Hypertension: Yes - Pulmonary Hx Respiratory Disorders: No Hx Asthma: No Hx Sleep Apnea: No - Neurological Hx Neurological Disorder: No - HEENT Hx HEENT Disorder: No - Renal Hx Renal Disorder: Yes Hx Kidney Stones: Yes Hx Renal Failure: Yes - Endocrine/Metabolic Hx Endocrine Disorders: No - Hematological/Oncological Hx Blood Transfusions: No Hx Blood Transfusion Reaction: No - Integumentary Hx Dermatological Disorder: No - Musculoskeletal/Rheumatological Hx Falls: No - Gastrointestinal Hx Gastrointestinal Disorders: Yes (obese) Hx Diverticulitis: Yes Hx Gastroesophageal Reflux: Yes Hx Pancreatitis: Yes - Genitourinary/Gynecological Hx Genitourinary Disorders: Yes (urinary retention) - Psychiatric Hx Psychophysiologic Disorder: No Hx Substance Use: No - Past Surgical History Past Surgical History: No Previous - Surgical History Other/Comment: stent to kidney - Anesthesia Hx Anesthesia Reactions: No Hx Malignant Hyperthermia: No - Suicidal Assessment Feels Threatened In Home Enviroment: No Family/Social History - Physician Review Nursing Documentation Reviewed: Yes Family/Social History: Unknown Family HX Smoking Status: Heavy Smoker > 10 Cigarettes Daily Hx Alcohol Use: No (occasionally) Hx Substance Use: No Hx Substance Use Treatment: No Allergies/Home Meds Allergies/Adverse Reactions: Allergies LUZ Inhibitors Allergy (Verified 08/02/17 13:57) ANGIOEDEMA Home Medications: Home Meds Medication Instructions Recorded Confirmed Amylase/Lipase/Protease [Pancrease 1 ecc PO ACTID 08/06/17 08/22/17 16474 U-5000 [id number] U] Carvedilol [Coreg] 12.5 mg PO BID 08/06/17 08/22/17 Famotidine [Pepcid] 20 mg PO DAILY 08/06/17 08/22/17 Furosemide [Lasix] 40 mg PO BID 08/06/17 08/22/17 Spironolactone [Aldactone] 25 mg PO DAILY 08/06/17 08/22/17 Valsartan [Diovan] 320 mg PO DAILY 08/06/17 08/22/17 HYDROmorphone [Dilaudid 2 mg Tab] 2 mg PO PRN PRN 08/22/17 08/22/17 Review of Systems - Physician Review All systems were reviewed & negative as marked: Yes - Review of Systems Constitutional: Normal Eyes: Normal ENT: Normal Respiratory: SOB. absent: Cough, Sputum, Wheezing Cardiovascular: Edema. absent: Chest Pain, Palpitations, Calf Pain Gastrointestinal: Abdominal Pain. absent: Constipation, Diarrhea, Nausea, Vomiting, Hematochezia, Hematemesis Genitourinary Male: Normal Musculoskeletal: Normal Skin: Normal Neurological: Normal Endocrine: Normal Hemo/Lymphatic: Normal Psychiatric: Normal Physical Exam Vital Signs Reviewed: Yes Vital Signs Temp Pulse Resp BP Pulse Ox 08/22/17 18:39 98 H 18 113/58 L 100 08/22/17 17:11 107/63 08/22/17 16:10 135 H 18 105/64 95 08/22/17 14:23 98.8 F 119 H 17 130/65 100 Temperature: Afebrile Blood Pressure: Normal Pulse: Tachycardic Respiratory Rate: Normal Appearance: Positive for: Well-Appearing, Non-Toxic, Comfortable, Other ( Morbidly morbidly obese) Pain Distress: None Mental Status: Positive for: Alert and Oriented X 3 - Systems Exam Head: Present: Atraumatic, Normocephalic Pupils: Present: PERRL Extroacular Muscles: Present: EOMI Conjunctiva: Present: Normal Mouth: Present: Moist Mucous Membranes Neck: Present: Normal Range of Motion Respiratory/Chest: Present: Good Air Exchange, Decreased Breath Sounds (All fieds with scattered crackles). No: Respiratory Distress, Accessory Muscle Use , Wheezes, Rales, Retracting, Rhonchi, Tachypneic Cardiovascular: Present: Regular Rate and Rhythm, Normal S1, S2. No: Murmurs Abdomen: Present: Tenderness (LUQ), Distention (Secondary to body habitus), Normal Bowel Sounds, Other (Soft). No: Peritoneal Signs, Rebound, Guarding, McBurney's Point Tender, Rovsing's Sign Present Back: Present: Normal Inspection Upper Extremity: Present: Normal Inspection. No: Cyanosis, Edema Lower Extremity: Present: Normal Inspection, Edema (4+ pitting edema b/l) Neurological: Present: GCS=15, CN II-XII Intact, Speech Normal Skin: Present: Warm, Dry, Normal Color. No: Rashes Psychiatric: Present: Alert, Oriented x 3, Normal Insight, Normal Concentration Medical Decision Making ED Course and Treatment: 08/22/17 20:05 PT present for stated history. His lab show Cr greater than her previous CR. He have leukocytosis with a shift. BNP was elevated and his CXR show moderate to severe cardiomegaly. His Abd CT from 08/02 was reviewed and possible diverticulitis was noted. this could be causing the leukocytosis. Lasix was ordered case was DW Dr. Santiago and pt was admitted. She requested consult of Drs. Choe, Berto and Nazario. 08/22/17 20:09 EKG Sinus tachy @148bpm - Lab Interpretations Lab Results: 08/22/17 14:57 08/22/17 14:57 Lab Results 08/22/17 17:00: Lipase 376 H 08/22/17 17:00: Urine Opiates Screen Positive H, Urine Methadone Screen Negative , Ur Barbiturates Screen Negative, Ur Phencyclidine Scrn Negative, Ur Amphetamines Screen Negative, U Benzodiazepines Scrn Negative, U Oth Cocaine Metabols Negative, U Cannabinoids Screen Negative 08/22/17 17:00: Urine Color Yellow, Urine Appearance Sl cloudy, Urine pH 6.0, Ur Specific [place] 1.020, Urine Protein 100 H, Urine Glucose (UA) Negative, Urine Ketones Negative, Urine Blood Moderate H, Urine Nitrate Negative, Urine Bilirubin Negative, Urine Urobilinogen 0.2, Ur Leukocyte Esterase Moderate H, Urine RBC 5 - 10, Urine WBC 25 - 30, Ur Epithelial Cells 3 - 4, Urine Bacteria Few 08/22/17 15:15: pO2 52, VBG pH 7.36, VBG pCO2 45.0, VBG HCO3 25.4, VBG Total CO2 26.8, VBG O2 Sat (Calc) 89.1 H, VBG Base Excess -0.4 L, VBG Potassium 4.9, Glucose 130 H, Lactate 1.1, FiO2 21.0, Sodium 130.0 L, Chloride 98.0, Venous Blood Potassium 4.9 08/22/17 14:57: Sodium 132, Potassium 5.1 H, Chloride 99, Carbon Dioxide 23, Anion Gap 16, BUN 66 H, Creatinine 2.8 H, Est GFR ( Amer) 31, Est GFR ( Non-Af Amer) 25, Random Glucose 129 H, Calcium 9.1, Total Bilirubin 0.7, AST 73 H D, ALT 46, Alkaline Phosphatase 79, Total Protein 7.7, Albumin 3.6, Globulin 4.2, Albumin/Globulin Ratio 0.9 L 08/22/17 14:57: Lactate Dehydrogenase 797 H, Total Creatine Kinase 913 H, CK-MB (CK-2) 3.2, CK-MB (CK-2) % Cancelled, Troponin I 0.05, NT-Pro-B Natriuret Pep 5710 H 08/22/17 14:57: PT 13.0 H, INR 1.19 H, APTT 34.0 08/22/17 14:57: WBC 12.9 H D, RBC 3.87, Hgb 12.3 L, Hct 36.8 L, MCV 95.1 D, MCH 31.8, MCHC 33.4, RDW 14.2, Plt Count 159, MPV 10.8, Gran % 77.8 H, Lymph % ( Auto) 9.1 L, [place] % (Auto) 12.2 H, Eos % (Auto) 0.7 L, Baso % (Auto) 0.2, Gran # 10.06 H, Lymph # 1.2, [place] # 1.6 H, Eos # 0.1, Baso # 0.02 - RAD Interpretation Radiology Orders: 08/22/17 14:20 CHEST PORTABLE [RAD] Stat - Medication Orders Current Medication Orders: Amylase (Pancrease 23084 U-5000 U-62678 U) 5,000 u PO ACTID [facility] Carvedilol (Coreg) 12.5 mg PO BID [facility] Famotidine (Pepcid) 20 mg PO DAILY [facility] Hydromorphone HCl (Dilaudid) 1 mg IVP Q4H PRN PRN Reason: Pain, moderate (4-7) Sodium Chloride (Sodium Chloride 0.45%) 1,000 mls @ 50 mls/hr IV .Q20H [facility] Ceftriaxone Sodium (Rocephin 1 Gram Ivpb) 1 gm in 100 mls @ 100 mls/hr IVPB DAILY [facility] PRN Reason: Protocol Valsartan (Diovan) 320 mg PO DAILY [facility] Discontinued Medications Furosemide (Lasix) 60 mg IVP STAT STA Stop: 08/22/17 16:55 Last Admin: 08/22/17 17:11 Dose: 60 mg MAR Blood Pressure Document 08/22/17 17:11 MR (Rec: 08/22/17 17:12 [id number]) Blood Pressure Blood Pressure (100/60-150/90) 107/63 IVP Administration Document 08/22/17 17:11 MR (Rec: 08/22/17 17:12 [id number]) Charges for Administration # of IVP Administrations 1 Hydromorphone HCl (Dilaudid) 1 mg IVP STAT STA Stop: 08/22/17 15:46 Last Admin: 08/22/17 16:00 Dose: 1 mg MAR Pain Assessment Document 08/22/17 16:00 MR (Rec: 08/22/17 16:01 [id number]) Pain Reassessment Is this a pain reassessment? No Sleep Is patient sleeping during reassessment? No Presence of Pain Presence of Pain Yes Pain Scale Used Pain Scale Used Numeric Location Left, Right or Bilateral Left Upper or Lower Lower Pain Location Body Site Abdomen Back Description Description Constant Intensity of Pain at present 10 Pain Behavior Irritability Restlessness Facial Grimacing Alleviating Factors/Management Medication Techniques Alleviating Factors Medication IVP Administration Document 08/22/17 16:00 MR (Rec: 08/22/17 16:01 [id number]) Charges for Administration # of IVP Administrations 1 Hydromorphone HCl (Dilaudid) 1 mg IVP STAT STA Stop: 08/22/17 18:16 Last Admin: 08/22/17 18:26 Dose: 1 mg MAR Pain Assessment Document 08/22/17 18:26 MR (Rec: 08/22/17 18:27 [id number]) Pain Reassessment Is this a pain reassessment? Yes Sleep Is patient sleeping during reassessment? No Presence of Pain Presence of Pain Yes Location Left, Right or Bilateral Left Pain Location Body Site Abdomen Back Description Description Constant Intensity of Pain at present 10 Pain Behavior Irritability Restlessness Facial Grimacing Alleviating Factors/Management Heat Techniques Alleviating Factors Medication IVP Administration Document 08/22/17 18:26 (Rec: 08/22/17 18:27 [id number]) Charges for Administration # of IVP Administrations 1 Re-Assess: OSWALDO Pain Assessment Document 08/22/17 19:26 [place] (Rec: 08/22/17 19:38 [id number] Pain Reassessment Is this a pain reassessment? Yes Sleep Is patient sleeping during reassessment? No Presence of Pain Presence of Pain No Pain Scale Used Pain Scale Used Numeric Disposition/Present on Arrival - Present on Arrival Any Indicators Present on Arrival: No History of DVT/PE: No History of Uncontrolled Diabetes: No Urinary Catheter: No History of Decub. Ulcer: No History Surgical Site Infection Following: None - Disposition Have Diagnosis and Disposition been Completed?: Yes Diagnosis: Renal failure, Intractable abdominal pain, Congestive heart failure, Dehydration, Pancreatitis, chronic, Morbid obesity Disposition: HOSPITALIZED Disposition Time: 17:35 Patient Problems: Current Active Problems Problem Status Onset Congestive heart failure Acute Dehydration Acute Intractable abdominal pain Acute Morbid obesity Acute Pancreatitis, chronic Acute Renal failure Acute Condition: FAIR
[2017-08-22] MEDS: Sodium Chloride 0.45% 1,000 ML IV SCH (20:38)
[2017-08-22] MEDS ORDERED: guaiFENesin 200 mg/10 ml Syrup UD PO PRN (20:39)
[2017-08-22] MEDS ORDERED: cefTRIAXone 1 gm 1 GM/100 ML BAG IVPB ONE (21:47)
[2017-08-22] MEDS ORDERED: Pneumococcal 23-Valent Vaccine IM ONE (22:42)
[2017-08-22] MEDS ORDERED: Influenza Vaccine 60 mcg/0.5 mL SYR (4YR UP) IM ONE (22:42)
--- NOTE | 2017-08-22 22:43 | CP.PCM.PN ---
Subjective - Date & Time of Evaluation Date of Evaluation: 08/22/17 Time of Evaluation: 22:39 - Subjective Subjective: Patient was seen at bedside because nurse told that his blood pressure was 160/ 112 and was having cough. Patient states that he has left sided abdominal pain. Has no other complaints. Medical record was reviewed. This 36 year old male was admitted for intractable abdominal pain. Has PMH of HTN,non ischemic cardiomyopathy, morbid obesity, mild renal insufficiency, chronic pancreatitis. Objective - Vital Signs/Intake and Output Vital Signs (last 24 hours): Temp Pulse Resp BP Pulse Ox 98.8 F 98 H 18 113/58 L 100 08/22/17 14:23 08/22/17 18:39 08/22/17 18:39 08/22/17 18:39 08/22/17 18:39 - Medications Medications: Current Medications Amylase (Pancrease 17932 U-5000 U-14379 U) 5,000 u PO ACTID [facility] Carvedilol (Coreg) 12.5 mg PO BID [facility] Famotidine (Pepcid) 20 mg PO DAILY [facility] Guaifenesin (Robitussin) 200 mg PO Q4H PRN PRN Reason: Cough and congestion Last Admin: 08/22/17 20:54 Dose: 200 mg Hydromorphone HCl (Dilaudid) 1 mg IVP Q4H PRN PRN Reason: Pain, moderate (4-7) Sodium Chloride (Sodium Chloride 0.45%) 1,000 mls @ 50 mls/hr IV .Q20H [facility] Last Admin: 08/22/17 20:38 Dose: 50 mls/hr Ceftriaxone Sodium (Rocephin 1 Gram Ivpb) 1 gm in 100 mls @ 100 mls/hr IVPB DAILY [facility] PRN Reason: Protocol Ceftriaxone Sodium (Rocephin 1 Gram Ivpb) 1 gm in 100 mls @ 100 mls/hr IVPB ONCE ONE PRN Reason: Protocol Stop: 08/22/17 22:46 Last Admin: 08/22/17 22:00 Dose: 100 mls/hr Valsartan (Diovan) 320 mg PO DAILY [facility] - Labs Labs: PT 13.0 SECONDS (9.4-12.5) H 08/22/17 14:57 INR 1.19 (0.93-1.08) H 08/22/17 14:57 APTT 34.0 Seconds (25.1-36.5) 08/22/17 14:57 Most Recent Lab Values WBC 12.9 10^3/ul (4.5-11.0) H D 08/22/17 14:57 RBC 3.87 10^6/uL (3.5-6.1) 08/22/17 14:57 Hgb 12.3 g/dL (14.0-18.0) L 08/22/17 14:57 Hct 36.8 % (42.0-52.0) L 08/22/17 14:57 MCV 95.1 fl (80.0-105.0) D 08/22/17 14:57 MCH 31.8 pg (25.0-35.0) 08/22/17 14:57 MCHC 33.4 g/dl (31.0-37.0) 08/22/17 14:57 RDW 14.2 % (11.5-14.5) 08/22/17 14:57 Plt Count 159 10^3/uL (120.0-450.0) 08/22/17 14:57 MPV 10.8 fl (7.0-11.0) 08/22/17 14:57 Gran % 77.8 % (50.0-68.0) H 08/22/17 14:57 Lymph % (Auto) 9.1 % (22.0-35.0) L 08/22/17 14:57 [place] % (Auto) 12.2 % (1.0-6.0) H 08/22/17 14:57 Eos % (Auto) 0.7 % (1.5-5.0) L 08/22/17 14:57 Baso % (Auto) 0.2 % (0.0-3.0) 08/22/17 14:57 Gran # 10.06 (1.4-6.5) H 08/22/17 14:57 Lymph # 1.2 (1.2-3.4) 08/22/17 14:57 [place] # 1.6 (0.1-0.6) H 08/22/17 14:57 Eos # 0.1 (0.0-0.7) 08/22/17 14:57 Baso # 0.02 K/mm3 (0.0-2.0) 08/22/17 14:57 PT 13.0 SECONDS (9.4-12.5) H 08/22/17 14:57 INR 1.19 (0.93-1.08) H 08/22/17 14:57 APTT 34.0 Seconds (25.1-36.5) 08/22/17 14:57 pO2 52 mm/Hg (30-55) 08/22/17 15:15 VBG pH 7.36 (7.32-7.43) 08/22/17 15:15 VBG pCO2 45.0 (40-60) 08/22/17 15:15 VBG HCO3 25.4 mmol/l (21-28) 08/22/17 15:15 VBG Total CO2 26.8 mmol.L (22-28) 08/22/17 15:15 VBG O2 Sat (Calc) 89.1 % (40-65) H 08/22/17 15:15 VBG Base Excess -0.4 mmol/L (0.0-2.0) L 08/22/17 15:15 VBG Potassium 4.9 mmol/L (3.6-5.2) 08/22/17 15:15 Sodium 130.0 mmol/L (132-148) L 08/22/17 15:15 Chloride 98.0 mmol/L (98-107) 08/22/17 15:15 Glucose 130 mg/dl (75-110) H 08/22/17 15:15 Lactate 1.1 mmol/L (0.7-2.1) 08/22/17 15:15 FiO2 21.0 % 08/22/17 15:15 Sodium 132 mmol/L (132-148) 08/22/17 14:57 Potassium 5.1 mmol/L (3.6-5.0) H 08/22/17 14:57 Chloride 99 mmol/L (98-107) 08/22/17 14:57 Carbon Dioxide 23 mmol/L (21-33) 08/22/17 14:57 Anion Gap 16 (10-20) 08/22/17 14:57 BUN 66 mg/dL (7-21) H 08/22/17 14:57 Creatinine 2.8 mg/dl (0.8-1.5) H 08/22/17 14:57 Est GFR ( Amer) 31 08/22/17 14:57 Est GFR (Non-Af Amer) 25 08/22/17 14:57 Random Glucose 129 mg/dL (70-110) H 08/22/17 14:57 Calcium 9.1 mg/dL (8.4-10.5) 08/22/17 14:57 Total Bilirubin 0.7 mg/dL (0.2-1.3) 08/22/17 14:57 AST 73 U/L (17-59) H D 08/22/17 14:57 ALT 46 U/L (7-56) 08/22/17 14:57 Alkaline Phosphatase 79 U/L (38-126) 08/22/17 14:57 Lactate Dehydrogenase 797 U/L (333-699) H 08/22/17 14:57 Total Creatine Kinase 913 U/L (35-230) H 08/22/17 14:57 CK-MB (CK-2) 3.2 ng/mL (0.0-3.6) 08/22/17 14:57 CK-MB (CK-2) % Cancelled 08/22/17 14:57 Troponin I 0.05 ng/mL 08/22/17 14:57 NT-Pro-B Natriuret Pep 5710 pg/mL (0-450) H 08/22/17 14:57 Total Protein 7.7 g/dL (5.8-8.3) 08/22/17 14:57 Albumin 3.6 g/dL (3.0-4.8) 08/22/17 14:57 Globulin 4.2 gm/dL 08/22/17 14:57 Albumin/Globulin Ratio 0.9 (1.1-1.8) L 08/22/17 14:57 Lipase 376 U/L (23-300) H 08/22/17 17:00 Venous Blood Potassium 4.9 mmol/L (3.6-5.2) 08/22/17 15:15 Urine Color Yellow (YELLOW) 08/22/17 17:00 Urine Appearance Sl cloudy (CLEAR) 08/22/17 17:00 Urine pH 6.0 (4.7-8.0) 08/22/17 17:00 Ur Specific [place] 1.020 (1.005-1.035) 08/22/17 17:00 Urine Protein 100 mg/dL (<30 mg/dL) H 08/22/17 17:00 Urine Glucose (UA) Negative mg/dL (NEGATIVE) 08/22/17 17:00 Urine Ketones Negative mg/dL (NEGATIVE) 08/22/17 17:00 Urine Blood Moderate (NEGATIVE) H 08/22/17 17:00 Urine Nitrate Negative (NEGATIVE) 08/22/17 17:00 Urine Bilirubin Negative (NEGATIVE) 08/22/17 17:00 Urine Urobilinogen 0.2 E.U./dL (<1 E.U./dL) 08/22/17 17:00 Ur Leukocyte Esterase Moderate [place]/uL (NEGATIVE) H 08/22/17 17:00 Urine RBC 5 - 10 /hpf (0-2) 08/22/17 17:00 Urine WBC 25 - 30 /hpf (0-6) 08/22/17 17:00 Ur Epithelial Cells 3 - 4 /hpf (0-5) 08/22/17 17:00 Urine Bacteria Few (NEG) 08/22/17 17:00 Urine Opiates Screen Positive (NEGATIVE) H 08/22/17 17:00 Urine Methadone Screen Negative (NEGATIVE) 08/22/17 17:00 Ur Barbiturates Screen Negative (NEGATIVE) 08/22/17 17:00 Ur Phencyclidine Scrn Negative (NEGATIVE) 08/22/17 17:00 Ur Amphetamines Screen Negative (NEGATIVE) 08/22/17 17:00 U Benzodiazepines Scrn Negative (NEGATIVE) 08/22/17 17:00 U Oth Cocaine Metabols Negative (NEGATIVE) 08/22/17 17:00 U Cannabinoids Screen Negative (NEGATIVE) 08/22/17 17:00 - Constitutional Appears: Well, No Acute Distress - Head Exam Head Exam: ATRAUMATIC, NORMAL INSPECTION, NORMOCEPHALIC Additional comments: Obese person. - Eye Exam Eye Exam: Normal appearance - ENT Exam ENT Exam: Normal External Ear Exam - Neck Exam Neck Exam: Normal Inspection - Respiratory Exam Respiratory Exam: NORMAL BREATHING PATTERN - Cardiovascular Exam Cardiovascular Exam: absent: JVD - GI/Abdominal Exam GI & Abdominal Exam: absent: Distended - Rectal Exam Rectal Exam: Deferred - Exam Additional comments: Deferred. - Extremities Exam Extremities Exam: Normal Inspection - Back Exam Back Exam: NORMAL INSPECTION - Neurological Exam Neurological Exam: Alert, Awake, Oriented x3 - Psychiatric Exam Psychiatric exam: Normal Affect, Normal Mood - Skin Skin Exam: Normal Color Assessment and Plan - Assessment and Plan (Free Text) Assessment: Left abdominal pain. Cough. Elevated blood pressure reading. HTN. Ischemic cardiomyopathy. Morbid obesity. Renal insufficiency. Plan: Valsartan 320 mg PO now. Dilaudid 1 mg IV now. Robitussin 200 mg PO q4h prn cough. Continue management as per PMD.
[2017-08-23] MEDS: HYDROmorphone 2 mg/ml ISec IVP PRN ×5 (00:10→23:58)
--- NOTE | 2017-08-23 00:17 | HP ---
HISTORY OF PRESENT ILLNESS: The patient is a 36-year-old came to emergency room because of left upper quadrant pain. He has been feeling very bloated and swollen. He has some abdominal discomfort. He states he is taking his medications the way he is told. Denies any nausea. Does complain of decreased appetite. PAST MEDICAL HISTORY: 1. He has long history of chronic intermittent pancreatitis, 2. Hypertension. 3. Morbid obesity. 4. Hydronephrosis, status post right ureteral stent that was removed almost a month ago. 5. Recurrent UTI. 6. Bilateral leg edema. 7. Status post cholecystectomy. ALLERGIES: HE IS ALLERGIC TO LUZ INHIBITOR. MEDICATIONS AT HOME: He is on Dilaudid 2 mg q.6 hours, Lasix 40 mg twice a day, Pepcid 20 mg daily, Coreg 12.5 twice a day, pancreatic enzymes, valsartan 320 daily, and Aldactone 25 daily. SOCIAL HISTORY: He works for [employer]. He still smokes. He used to be heavy drinker in the past. REVIEW OF SYSTEMS: Significant for feeling bloated and swollen as if he is holding fluid. PHYSICAL EXAMINATION: GENERAL: He is awake, alert, oriented, and communicative. VITAL SIGNS: He is afebrile, pulse 90, respirations 18, and blood pressure 113/53. LUNGS: Bilateral fair airflow. No rhonchi or crackles. HEART: S1 and S2 audible. ABDOMEN: Soft, obese, and nontender. No rebound. No guarding. NEUROLOGIC: The patient is awake, alert, and oriented. Able to move all extremities. Bilateral legs +2 edema. LABORATORY DATA: WBC 12.9, hemoglobin 12.3, hematocrit 36.8, and platelets of 159. PT 13.0. INR 1.19. Chemistry: Sodium 132, potassium 5.1, chloride 99, CO2 of 23, BUN 66, creatinine 2.8, and blood sugar of 128. AST 73. LDH 797. CPK is 913. BNP is 5710. Lipase 376. ASSESSMENT: 1. Acute renal failure. 2. Dehydration. 3. Recurrent pancreatitis. 4. Hypertension. PLAN: We will start him on IV fluids. GI consult by Dr. Choe. Cardiology consult by Dr. Thomson and Urology consult by Dr. Lange has been requested. We will follow up with electrolyte in a.m. We will cover him with the antibiotic. Send blood culture and urine culture. Sammy Santiago MD
[2017-08-23 06:20] LABS: BASO # 0.05 K/mm3 (0.0-2.0); BASO % 0.3 % (0.0-3.0); EOS # 0.1 (0.0-0.7); EOS % 0.5 % (1.5-5.0); GRAN % 69.8 % (50.0-68.0); LYMPH # 1.2 (1.2-3.4); LYMPH % 8.3 % (22.0-35.0); MEAN CELL VOLUME 95.9 fl (80.0-105.0); MEAN CORPUSCULAR HEMOGLOBIN 31.7 pg (25.0-35.0); MEAN PLATELET VOLUME 11.2 fl (7.0-11.0); MONO # 3.1 (0.1-0.6); MONO % 21.1 % (1.0-6.0); PLATELET COUNT 152 10^3/uL (120.0-450.0); RED CELL DISTRIBUTION WIDTH 14.4 % (11.5-14.5); WHITE BLOOD COUNT 14.8 10^3/ul (4.5-11.0)
[2017-08-23 06:59] LABS: ALB/GLOB RATIO 0.9 (1.1-1.8); BILIRUBIN,TOTAL 0.5 mg/dL (0.2-1.3); CALCIUM 8.9 mg/dL (8.4-10.5); POTASSIUM 4.6 mmol/L (3.6-5.0); TOTAL PROTEIN 7.1 g/dL (5.8-8.3)
--- NOTE | 2017-08-23 07:52 | CARD ---
APPROVED REPORT EKG Measurement Heart [id number] GA 150P [id number] <Conclusion> A. Flutter with RVR LAD STTW changes
[2017-08-23] MEDS: Amylase/Lipase/Protease 5,000 U ECC PO SCH ×3 (07:59→17:12)
[2017-08-23 09:38] LABS: ATYPICAL LYMPHOCYTE 1 % (0.0-0.0); BAND 8 % (0-2)
[2017-08-23 09:39] LABS: ANISOCYTOSIS 1+; EOSINOPHIL 1 % (0.0-3.0); HYPOCHROMIA 1+; NEUTROPHIL 65 % (50.0-70.0); PLATELET ESTIMATE NORMAL (NORMAL)
[2017-08-23 09:40] LABS: TOXIC GRANULATION SLIGHT
[2017-08-23] MEDS: cefTRIAXone 1 gm 1 GM/100 ML BAG IVPB SCH (09:42)
[2017-08-23] MEDS ORDERED: diltiaZEM IVPB 100mg in NS 100 ML IV PRN (14:57)
[2017-08-23] MEDS ORDERED: HYDROmorphone 2 mg/ml ISec IVP PRN (15:22)
[2017-08-23] MEDS: Sodium Chloride 0.45% 1,000 ML IV SCH (15:45)
--- NOTE | 2017-08-23 16:06 | US ---
PROCEDURE: Ultrasound of the Kidneys HISTORY: ABDOMINAL DISTENTION, RETENTION COMPARISON: 09/20/2016. Abdominal ultrasound. 05/01/2017 CT abdomen and pelvis. TECHNIQUE: Sonogram of the kidneys. FINDINGS: RIGHT KIDNEY: Measures: 7.1 x 14.4 cm. Normal in size, contour and echogenicity. No stone, solid mass lesion or hydronephrosis visualized. LEFT KIDNEY: Measures: 10 x 813.2 cm. Normal in size, contour and echogenicity. Echogenic focus, calculus lower pole left kidney 10 x 11 mm. Hyperechoic region upper pole 2.7 x 2.8 cm. OTHER FINDINGS: None. IMPRESSION: No significant interval change compared to the prior examination(s).
--- NOTE | 2017-08-23 16:14 | CP.PCM.CON ---
<Thania Ge - Last Filed: 08/23/17 16:04> History of Present Illness - History of Present Illness History of Present Illness: Seen and examined at the bedside earlier today, the chart was reviewed. Request for GI consult is for abdominal pain. HPI:This is a 36-year-old male with a past medical history of chronic pancreatitis, morbid obesity, hypertension, recurrent UTIs came to the emergency room with complaint of left upper quadrant abdominal pain. Patient was released from [facility] a few weeks ago for what his symptoms appear to be like gastroenteritis. The patient came to ER with complaints of feeling bloated and swollen and bilateral lower extremity edema. The patient reports that he has been having increased urination, he recently had a ureteral stent removed. Patient states that he would went to his urologist and had catheter inserted with relief and urination improved at some time but edorses that frequent urination returned. The patient denies nausea, vomiting or diarrhea, patient states he hasn't had a bowel movement in at least 2 days. He does report decreased appetite. Patient also reports that he has been having shortness of breath on exertion. As per nursing staff patient has reported to not have been taking his Lasix secondary to frequent urination, patient states he has been taking his medications.patient had chest x-ray which showed cardiomegaly and vascular congestion. Past medical history: CHF, hypertension, asthma, chronic pancreatitis, secondary to EtOH, Patient FU at [facility], sleep apnea, morbid obesity, GERD, diverticulitis, sleep apnea, left kidney cyst,ACute Renal failure secondary to dehydration Surgical HX: cholecystectomy, egd 07/2016, colon 2016 Family history: Noncontributory at this time Social history: Positive for smoking, ETOH in the past, cut down, occasional alcohol use, denies recreational drugs Allergies: Kimani inhibitors Medications: Reviewed as per MAR ROS: Systems reviewed. Positive findings see HPI Past Patient History - Infectious Disease Hx of Infectious Diseases: None - Tetanus Immunizations Tetanus Immunization: Unknown - Past Medical History & Family History Past Medical History?: Yes - Past Social History Smoking Status: Current Some Days Smoker - CARDIAC Hx Cardiac Disorders: Yes (cardiomyopathy) Hx Congestive Heart Failure: Yes Hx Hypertension: Yes - PULMONARY Hx Respiratory Disorders: No Hx Asthma: No Hx Sleep Apnea: No - NEUROLOGICAL Hx Neurological Disorder: No - HEENT Hx HEENT Problems: No - RENAL Hx Chronic Kidney Disease: Yes Hx Kidney Stones: Yes Hx Renal Failure: Yes - ENDOCRINE/METABOLIC Hx Endocrine Disorders: No - HEMATOLOGICAL/ONCOLOGICAL Hx Blood Disorders: No - INTEGUMENTARY Hx Dermatological Problems: No - MUSCULOSKELETAL/RHEUMATOLOGICAL Hx Falls: No - GASTROINTESTINAL Hx Gastrointestinal Disorders: Yes (obese) Hx Diverticulitis: Yes Hx Gastroesophageal Reflux: Yes Hx Pancreatitis: Yes - GENITOURINARY/GYNECOLOGICAL Hx Genitourinary Disorders: Yes (urinary retention) - PSYCHIATRIC Hx Psychophysiologic Disorder: No Hx Substance Use: No - SURGICAL HISTORY Other/Comment: stent to kidney - ANESTHESIA Hx Anesthesia Reactions: No Hx Malignant Hyperthermia: No Meds Allergies/Adverse Reactions: Allergies Allergy/AdvReac Type Severity Reaction Status Date / Time KIMANI Inhibitors Allergy ANGIOEDEMA Verified 08/22/17 21:42 - Medications Medications: Current Medications Amylase (Pancrease 05922 U-5000 U-45337 U) 5,000 u PO ACTID [facility] Last Admin: 08/23/17 11:54 Dose: 5,000 u Carvedilol (Coreg) 12.5 mg PO BID [facility] Last Admin: 08/23/17 09:45 Dose: 12.5 mg Famotidine (Pepcid) 20 mg PO DAILY [facility] Last Admin: 08/23/17 09:45 Dose: 20 mg Guaifenesin (Robitussin) 200 mg PO Q4H PRN PRN Reason: Cough and congestion Last Admin: 08/22/17 20:54 Dose: 200 mg Hydromorphone HCl (Dilaudid) 2 mg IVP Q4H PRN PRN Reason: Pain, moderate (4-7) Sodium Chloride (Sodium Chloride 0.45%) 1,000 mls @ 50 mls/hr IV .Q20H [facility] Last Admin: 08/22/17 20:38 Dose: 50 mls/hr Ceftriaxone Sodium (Rocephin 1 Gram Ivpb) 1 gm in 100 mls @ 100 mls/hr IVPB DAILY [facility] PRN Reason: Protocol Last Admin: 08/23/17 09:42 Dose: 100 mls/hr diltiaZEM IVPB 100mg in NS (Cardizem 100mg In Ns) 100 mls @ 5 mls/hr IV .Q20H PRN; Protocol; 5 MG/HR PRN Reason: TITRATE PER MD ORDER Last Admin: 08/23/17 15:34 Dose: 5 mg/hr, 5 mls/hr Physical Exam - Constitutional Appears: No Acute Distress - Eye Exam Eye Exam: Normal appearance. absent: Scleral icterus - ENT Exam ENT Exam: Mucous Membranes Moist - Respiratory Exam Respiratory Exam: Decreased Breath Sounds, NORMAL BREATHING PATTERN. absent: Wheezes, Respiratory Distress Additional comments: faint crackles - Cardiovascular Exam Cardiovascular Exam: +S1, +S2 - GI/Abdominal Exam GI & Abdominal Exam: Distended (obese), Normal Bowel Sounds, Soft, Tenderness ( LUQ). absent: Guarding, Rebound - Extremities Exam Extremities exam: Positive for: pedal edema (bilateral). Negative for: calf tenderness - Neurological Exam Neurological exam: Alert, Oriented x3 - Skin Skin Exam: Dry, Warm Results - Vital Signs Recent Vital Signs: Last Vital Signs Temp 98.3 F 08/23/17 06:00 Pulse 135 H 08/23/17 15:34 Resp 21 08/23/17 06:00 BP 103/56 L 08/23/17 15:34 Pulse Ox 95 08/23/17 06:00 - Labs Result Diagrams: 08/23/17 06:00 08/23/17 06:00 Labs: Laboratory Results - last 24 hr 08/23/17 08/23/17 06:00 06:00 WBC 14.8 H RBC 3.44 L Hgb 10.9 L Hct 33.0 L MCV 95.9 MCH 31.7 MCHC 33.0 RDW 14.4 Plt Count 152 MPV 11.2 H Gran % 69.8 H Lymph % (Auto) 8.3 L [place] % (Auto) 21.1 H Eos % (Auto) 0.5 L Baso % (Auto) 0.3 Gran # 10.30 H Lymph # 1.2 [place] # 3.1 H Eos # 0.1 Baso # 0.05 Neutrophils % (Manual) 65 Band Neutrophils % 8 H Lymphocytes % (Manual) 15 L Atypical Lymphs % 1 H Monocytes % (Manual) 10 H Eosinophils % (Manual) 1 Toxic Granulation Slight Platelet Evaluation Normal Hypochromasia 1+ Anisocytosis (manual) 1+ Sodium 129 L Potassium 4.6 Chloride 97 L Carbon Dioxide 24 Anion Gap 14 BUN 71 H Creatinine 3.4 H Est GFR ( Amer) 25 Est GFR (Non-Af Amer) 20 Random Glucose 102 Calcium 8.9 Total Bilirubin 0.5 AST 53 ALT 41 Alkaline Phosphatase 74 Total Protein 7.1 Albumin 3.3 Globulin 3.8 Albumin/Globulin Ratio 0.9 L Assessment & Plan - Assessment and Plan (Free Text) Assessment: Assessment: Dehydration Acute renal failure Recurrent pancreatitis Morbid obesity Hypertension Plan: Continue clear liquid diet, advance as tolerated Continue Pepcid 20 mg daily Continue IV fluids On ceftriaxone Urology and cardiology follow-up On Lasix Monitor electrolytes Thank you for this consult and for allowing us to participate in your patient's care, further recommendations based upon clinical course. Seen and discussed with Dr. Martinez. <Souleymane Choe V - Last Filed: 08/24/17 00:06> Meds - Medications Medications: Current Medications Amylase (Pancrease 48378 U-5000 U-06920 U) 5,000 u PO ACTID [facility] Last Admin: 08/23/17 17:12 Dose: 5,000 u Apixaban (Eliquis) 2.5 mg PO BID [facility] PRN Reason: Protocol Last Admin: 08/23/17 17:12 Dose: 2.5 mg Carvedilol (Coreg) 12.5 mg PO BID [facility] Last Admin: 08/23/17 19:01 Dose: Not Given Famotidine (Pepcid) 20 mg PO DAILY [facility] Last Admin: 08/23/17 09:45 Dose: 20 mg Furosemide (Lasix) 80 mg IV BID [facility] Last Admin: 08/23/17 17:40 Dose: Not Given Guaifenesin (Robitussin) 200 mg PO Q4H PRN PRN Reason: Cough and congestion Last Admin: 08/22/17 20:54 Dose: 200 mg Hydromorphone HCl (Dilaudid) 2 mg IVP Q4H PRN PRN Reason: Pain, moderate (4-7) Last Admin: 08/23/17 23:58 Dose: 2 mg Ceftriaxone Sodium (Rocephin 1 Gram Ivpb) 1 gm in 100 mls @ 100 mls/hr IVPB DAILY [facility] PRN Reason: Protocol Last Admin: 08/23/17 09:42 Dose: 100 mls/hr Amiodarone HCl/Dextrose (Nexterone 360 Mg In D5w 200 Ml (Premix)) 360 mg in 200 mls @ 16.667 mls/hr IV .Q12H [facility]; 0.5 MG/MIN PRN Reason: Protocol Last Admin: 08/23/17 20:35 Dose: 16.667 mls/hr Metolazone (Zaroxolyn) 5 mg PO DAILY [facility] Results - Vital Signs Recent Vital Signs: Last Vital Signs Temp 100.2 F H 08/23/17 16:00 Pulse 60 08/23/17 16:00 Resp 18 08/23/17 16:00 BP 87/49 L 08/23/17 19:01 Pulse Ox 98 08/23/17 16:00 - Labs Result Diagrams: 08/23/17 06:00 08/23/17 06:00 Labs: Laboratory Results - last 24 hr 08/23/17 08/23/17 06:00 06:00 WBC 14.8 H RBC 3.44 L Hgb 10.9 L Hct 33.0 L MCV 95.9 MCH 31.7 MCHC 33.0 RDW 14.4 Plt Count 152 MPV 11.2 H Gran % 69.8 H Lymph % (Auto) 8.3 L [place] % (Auto) 21.1 H Eos % (Auto) 0.5 L Baso % (Auto) 0.3 Gran # 10.30 H Lymph # 1.2 [place] # 3.1 H Eos # 0.1 Baso # 0.05 Neutrophils % (Manual) 65 Band Neutrophils % 8 H Lymphocytes % (Manual) 15 L Atypical Lymphs % 1 H Monocytes % (Manual) 10 H Eosinophils % (Manual) 1 Toxic Granulation Slight Platelet Evaluation Normal Hypochromasia 1+ Anisocytosis (manual) 1+ Sodium 129 L Potassium 4.6 Chloride 97 L Carbon Dioxide 24 Anion Gap 14 BUN 71 H Creatinine 3.4 H Est GFR ( Amer) 25 Est GFR (Non-Af Amer) 20 Random Glucose 102 Calcium 8.9 Total Bilirubin 0.5 AST 53 ALT 41 Alkaline Phosphatase 74 Total Protein 7.1 Albumin 3.3 Globulin 3.8 Albumin/Globulin Ratio 0.9 L Attending/Attestation - Attestation I have personally seen and examined this patient.: Yes I have fully participated in the care of the patient.: Yes I have reviewed all pertinent clinical information: Yes Notes (Text): this is an addendum to the GI consultation report dictated by Thania Ge APN. The patient was seen and evaluated here earlier. Patient is on telemetry for monitoring A. fib flutter. He is on Cardizem drip. Patient still complains of some epigastric discomfort. His main concern is shortness of breath and abdominal bloating and significant increase in weight. his comorbidities include acute kidney injury, chronic kidney disease, cardiomyopathy, chronic pancreatitis, morbid obesity On examination abdomen soft tenderness present in the epigastric area Will continue clear liquid diet and would consider repeating CAT scan abdomen and pelvis based on his clinical course tomorrow 08/24/17 00:03
[2017-08-23] MEDS ORDERED: metOLazone 5 MG TAB PO STA (16:46)
[2017-08-23] MEDS ORDERED: Digoxin 250 mcg (0.25 mg) Tab GT STA (16:48)
[2017-08-23] MEDS ORDERED: Digoxin 500 mcg/2ml (0.5 mg/2ml) Inj IVP ONE (16:51)
--- NOTE | 2017-08-23 18:10 | PN ---
DATE: SUBJECTIVE: The patient is a 36-year-old, seen and examined, complained of left flank discomfort, complained of feeling bloated, complained of shortness of breath. No nausea or vomiting. Complained of epigastric pain. PHYSICAL EXAMINATION: VITAL SIGNS: The patient is afebrile, pulse 66, respirations 21, blood pressure 93/59. LUNGS: Bilateral fair airflow, decreased at bases. HEART: S1 and S2 audible. ABDOMEN: Soft. Left upper quadrant discomfort. NEUROLOGIC: He is awake and alert, able to communicate. LABORATORY EXAMINATION: WBC 14.8, hemoglobin 10.9, hematocrit 33, platelet 152. Chemistry: Sodium 139, potassium 4.6, chloride 97, CO2 of 24, BUN 71, creatinine 3.4, blood sugar of 102, lipase 376. Urine shows moderate leukocyte wbc's. Urine tox positive for opiate. ASSESSMENT: 1. Mild congestive heart failure. 2. Nonischemic cardiomyopathy. 3. Acute renal failure. 4. Recurrent pancreatitis. 5. Gastritis. 6. History of diverticulosis. PLAN: Currently, the patient is on IV fluids. He is on Coreg. Continue to hold his losartan. We will start him on Norvasc. We started him on Rocephin. Awaiting Nephrology input. We will follow up the patient in a.m. Sammy Santiago MD
--- NOTE | 2017-08-23 19:01 | PN ---
DATE: SUBJECTIVE: The patient is a 36-year-old, seen and examined, seems to be short of breath. He said, he has left mid back pain and left flank pain. He states he had difficulty urinating, but now seems to be better. PHYSICAL EXAMINATION: VITAL SIGNS: He is afebrile, pulse 66, blood pressure 93/59, respirations 21. LUNGS: Bilateral soft crackle on bases. HEART: S1 and S2 audible. ABDOMEN: Soft, obese, nontender, has epigastric discomfort only upon deep palpation. NEUROLOGIC: He is awake and alert. EXTREMITIES: Bilateral legs +2 edema. LABORATORY EXAMINATION: WBC 14.8, hemoglobin 10.9, hematocrit 33, platelet of 152. Chemistry, sodium 139, potassium 4.6, chloride 97, CO2 of 24, BUN 71, creatinine 3.4, blood sugar of 102. Lipase 736. Renal ultrasound negative for hydronephrosis or obstruction. ASSESSMENT AND PLAN: 1. Congestive heart failure. 2. Acute renal failure. 3. Recurrent pancreatitis. 4. Hypertension. 5. Morbid obesity. 6. Atrial flutter. As per Dr. Jay, he evaluated the patient after the patient is in atrial fibrillation. He has been placed on property assessment monitor, so we will discuss with Dr. Jay. We will diurese him. He is not actively vomiting. He has been started no Eliquis. We can discontinue his IV fluids. He has been started on Cardizem, awaiting input from Dr. Don. He also has been started on Rocephin. Follow up his CBC and CMP in a.m. Sammy Santiago MD
[2017-08-23] MEDS ORDERED: Amiodarone 150 mg/D5W 100 ml 150 MG/100 ML BAG IVPB ONE (19:22)
[2017-08-23] MEDS ORDERED: HYDROmorphone 1 mg/ml ISec IVP PRN (20:04)
--- NOTE | 2017-08-23 20:33 | CP.PCM.CON ---
<Tania Dimas - Last Filed: 08/24/17 06:25> History of Present Illness - History of Present Illness History of Present Illness: PGY-2 ICU consult note 36 yo male with PMH of HTN, chronic pancreatitis, morbid obesity, hydronephrosis , recurrent UTI consulted for uncontrolled a. fib, hypotension, chf exacerbation. Patient states that all day he has been SOB with epigastric pain that radiates to his back. He states that his legs are bilaterally swollen. The sob improved when he is sitting up. He states that recently he was told he has heart issues. He states that he is on clear liquid diet and that the anti- nausea medication are helping. He has productive cough associated with chest wall pain. Patient was receiving diltiazem drip with coreg BID for heart rate controlled, however per nurse patient was not given evening dose of coreg due to low blood pressure. PMH: HTN, chronic pancreatitis, morbid obesity, hydronephrosis, recurrent UTI PSH: renal stent social history: smokes 1ppd for many years, stop- alcohol use about 2 yo, denies illicit drug use allergy: luz inhibitors home meds: dilaudid 2mg, lasix, pepcid, coreg, pancrease, diovan, aldactone Review of Systems - Constitutional Constitutional: absent: Chills, Fever, Headache - EENT Nose/Mouth/Throat: absent: Nasal Congestion, Nasal Discharge, Sore Throat - Cardiovascular Cardiovascular: Irregular Heart Rhythm, Pedal Edema. absent: Chest Pain, Lightheadedness - Respiratory Respiratory: Cough, Dyspnea, Pain with Coughing. absent: Hemoptysis - Gastrointestinal Gastrointestinal: Abdominal Pain, Nausea. absent: Constipation, Diarrhea, Vomiting - Musculoskeletal Musculoskeletal: Back Pain. absent: Arthralgias, Muscle Cramps, Myalgias, Neck Pain, Numbness - Integumentary Integumentary: absent: Rash, Skin Pain, Skin Ulcer, Sores, Wounds - Neurological Neurological: absent: Dizziness, Numbness, Focal Weakness, Headaches, Syncope - Hematologic/Lymphatic Hematologic: absent: Easy Bleeding, Easy Bruising Past Patient History - Infectious Disease Hx of Infectious Diseases: None - Tetanus Immunizations Tetanus Immunization: Unknown - Past Medical History & Family History Past Medical History?: Yes - Past Social History Smoking Status: Current Some Days Smoker - CARDIAC Hx Cardiac Disorders: Yes (cardiomyopathy) Hx Congestive Heart Failure: Yes Hx Hypertension: Yes - PULMONARY Hx Respiratory Disorders: No Hx Asthma: No Hx Sleep Apnea: No - NEUROLOGICAL Hx Neurological Disorder: No - HEENT Hx HEENT Problems: No - RENAL Hx Chronic Kidney Disease: Yes Hx Kidney Stones: Yes Hx Renal Failure: Yes - ENDOCRINE/METABOLIC Hx Endocrine Disorders: No - HEMATOLOGICAL/ONCOLOGICAL Hx Blood Disorders: No - INTEGUMENTARY Hx Dermatological Problems: No - MUSCULOSKELETAL/RHEUMATOLOGICAL Hx Falls: No - GASTROINTESTINAL Hx Gastrointestinal Disorders: Yes (obese) Hx Diverticulitis: Yes Hx Gastroesophageal Reflux: Yes Hx Pancreatitis: Yes - GENITOURINARY/GYNECOLOGICAL Hx Genitourinary Disorders: Yes (urinary retention) - PSYCHIATRIC Hx Psychophysiologic Disorder: No Hx Substance Use: No - SURGICAL HISTORY Other/Comment: stent to kidney - ANESTHESIA Hx Anesthesia Reactions: No Hx Malignant Hyperthermia: No Meds Allergies/Adverse Reactions: Allergies Allergy/AdvReac Type Severity Reaction Status Date / Time LUZ Inhibitors Allergy ANGIOEDEMA Verified 08/22/17 21:42 - Medications Medications: Current Medications Amylase (Pancrease 48025 U-5000 U-63436 U) 5,000 u PO ACTID [facility] Last Admin: 08/23/17 17:12 Dose: 5,000 u Apixaban (Eliquis) 2.5 mg PO BID [facility] PRN Reason: Protocol Last Admin: 08/23/17 17:12 Dose: 2.5 mg Carvedilol (Coreg) 12.5 mg PO BID [facility] Last Admin: 08/23/17 19:01 Dose: Not Given Famotidine (Pepcid) 20 mg PO DAILY [facility] Last Admin: 08/23/17 09:45 Dose: 20 mg Furosemide (Lasix) 80 mg IV BID [facility] Last Admin: 08/23/17 17:40 Dose: Not Given Guaifenesin (Robitussin) 200 mg PO Q4H PRN PRN Reason: Cough and congestion Last Admin: 08/22/17 20:54 Dose: 200 mg Hydromorphone HCl (Dilaudid) 2 mg IVP Q4H PRN PRN Reason: Pain, moderate (4-7) Last Admin: 08/23/17 20:17 Dose: 2 mg Ceftriaxone Sodium (Rocephin 1 Gram Ivpb) 1 gm in 100 mls @ 100 mls/hr IVPB DAILY [facility] PRN Reason: Protocol Last Admin: 08/23/17 09:42 Dose: 100 mls/hr Amiodarone HCl/Dextrose (Nexterone 360 Mg In D5w 200 Ml (Premix)) 360 mg in 200 mls @ 16.667 mls/hr IV .Q12H [facility]; 0.5 MG/MIN PRN Reason: Protocol Metolazone (Zaroxolyn) 5 mg PO DAILY [facility] Physical Exam - Constitutional Appears: Agitated - Head Exam Head Exam: ATRAUMATIC, NORMAL INSPECTION, NORMOCEPHALIC - Eye Exam Eye Exam: Normal appearance - ENT Exam ENT Exam: Mucous Membranes Moist - Respiratory Exam Respiratory Exam: Chest Wall Tenderness, Rhonchi (mild bases). absent: Clear to Auscultation Bilateral, Wheezes - Cardiovascular Exam Cardiovascular Exam: Tachycardia, Irregular Rhythm - GI/Abdominal Exam GI & Abdominal Exam: Normal Bowel Sounds, Soft, Tenderness. absent: Distended, Firm - Extremities Exam Additional comments: +2 pitting edema bilaterally - Neurological Exam Neurological exam: Alert, CN II-XII Intact, Oriented x3 - Skin Skin Exam: Dry, Intact, Normal Color, Warm Results - Vital Signs Recent Vital Signs: Last Vital Signs Temp 100.2 F H 08/23/17 16:00 Pulse 60 08/23/17 16:00 Resp 18 08/23/17 16:00 BP 87/49 L 08/23/17 19:01 Pulse Ox 98 08/23/17 16:00 - Labs Result Diagrams: 08/23/17 06:00 08/23/17 06:00 Labs: Laboratory Results - last 24 hr 08/23/17 08/23/17 06:00 06:00 WBC 14.8 H RBC 3.44 L Hgb 10.9 L Hct 33.0 L MCV 95.9 MCH 31.7 MCHC 33.0 RDW 14.4 Plt Count 152 MPV 11.2 H Gran % 69.8 H Lymph % (Auto) 8.3 L [place] % (Auto) 21.1 H Eos % (Auto) 0.5 L Baso % (Auto) 0.3 Gran # 10.30 H Lymph # 1.2 [place] # 3.1 H Eos # 0.1 Baso # 0.05 Neutrophils % (Manual) 65 Band Neutrophils % 8 H Lymphocytes % (Manual) 15 L Atypical Lymphs % 1 H Monocytes % (Manual) 10 H Eosinophils % (Manual) 1 Toxic Granulation Slight Platelet Evaluation Normal Hypochromasia 1+ Anisocytosis (manual) 1+ Sodium 129 L Potassium 4.6 Chloride 97 L Carbon Dioxide 24 Anion Gap 14 BUN 71 H Creatinine 3.4 H Est GFR ( Amer) 25 Est GFR (Non-Af Amer) 20 Random Glucose 102 Calcium 8.9 Total Bilirubin 0.5 AST 53 ALT 41 Alkaline Phosphatase 74 Total Protein 7.1 Albumin 3.3 Globulin 3.8 Albumin/Globulin Ratio 0.9 L Assessment & Plan - Assessment and Plan (Free Text) Assessment: 36 yo male with PMH of HTN, chronic pancreatitis, morbid obesity, hydronephrosis , recurrent UTI consulted for uncontrolled a. fib, hypotension, chf exqacerbation. Plan: Neurology - Patient is alert and oriented - no neurological deficits - will continue to monitor cardiovascular - Blood pressure 111/65 - heart rat elevated, per nurse 130s-140s - recent Echo on 08/07/17 showed EF of 40%, moderately dilated left ventricle - will start amiodarone drip after bolus - stop cardizem drip - hold coreg due to low BP - continue lasix 80 IV BID - continue eliquis for anticoagulation - continue to monitor - maintain MAP greater the 65 - cardiology following pulmonary - sob most likely due to fluid overload - continue lasix 80mg IV BID - strict I&O - continue robitussian for cough - supplemental O2 maintain SaO2 greater then 90% GI - chronic pancreatitis - nausea controlled - GI following - continue clear liquid diet - pain control with Dilaudid ID - leukocytosis, with elevated temp this afternoon - he was started on Rocephin - UA positive for moderate leukocyte esterase - urine cultures sent renal - JENNIFER, creatinine continues to rise - monitor electrolytes replace as needed - nephro consulted Case reviewed and discussed with attending, Dr. Cox <Brooke XIONG,Naeem - Last Filed: 08/28/17 08:58> Meds - Medications Medications: Current Medications Amylase (Pancrease 62597 U-5000 U-20894 U) 15,000 u PO AC [facility] Last Admin: 08/28/17 08:36 Dose: 15,000 u Apixaban (Eliquis) 2.5 mg PO BID [facility] PRN Reason: Protocol Last Admin: 08/27/17 17:44 Dose: 2.5 mg Carvedilol (Coreg) 25 mg PO BID [facility] Last Admin: 08/27/17 17:44 Dose: 25 mg Famotidine (Pepcid) 20 mg PO DAILY [facility] Last Admin: 08/27/17 09:57 Dose: 20 mg Furosemide (Lasix) 40 mg IV BID [facility] Guaifenesin (Robitussin) 200 mg PO Q4H PRN PRN Reason: Cough and congestion Last Admin: 08/22/17 20:54 Dose: 200 mg Hydromorphone HCl (Dilaudid) 1.5 mg IVP Q4H PRN PRN Reason: Pain, moderate (4-7) Last Admin: 08/28/17 05:49 Dose: 1.5 mg Ceftriaxone Sodium (Rocephin 1 Gram Ivpb) 1 gm in 100 mls @ 100 mls/hr IVPB DAILY [facility] PRN Reason: Protocol Stop: 09/04/17 10:01 Last Admin: 08/27/17 09:56 Dose: 100 mls/hr Results - Vital Signs Recent Vital Signs: Last Vital Signs Temp 97.6 F 08/28/17 06:00 Pulse 93 H 08/28/17 06:00 Resp 20 08/28/17 06:00 BP 121/75 08/28/17 06:00 Pulse Ox 95 08/28/17 06:00 - Labs Result Diagrams: 08/27/17 05:30 08/28/17 07:20 Labs: Laboratory Results - last 24 hr 08/28/17 07:20 Sodium 135 Potassium 4.3 Chloride 102 Carbon Dioxide 25 Anion Gap 13 BUN 47 H Creatinine 1.7 H Est GFR ( Amer) 55 Est GFR (Non-Af Amer) 45 Random Glucose 119 H Calcium 9.3 Total Bilirubin 0.6 AST 25 ALT 27 Alkaline Phosphatase 79 Total Protein 7.7 Albumin 3.4 Globulin 4.3 Albumin/Globulin Ratio 0.8 L Attending/Attestation - Attestation I have personally seen and examined this patient.: Yes I have fully participated in the care of the patient.: Yes I have reviewed all pertinent clinical information: Yes Notes (Text): -I agree with the above ICU consult note completed by the resident physician with the following additions and/or changes: -The patient is a 36 year old man with a history of chronic pancreatitis, morbid obesity, recurrent UTI's, CHF and HTN who was admitted to the telemetry guidry initially for acute CHF exacerbation. While on the telemetry guidry, he developed atrial fibrillation with RVR for which Diltiazem drip was started. However, the Diltiazem drip has not controlled his heart rate (which is ranging around the 140's) but it has cause him to become hypotensive (SBP in the low 80' s). As a result, he will be upgraded to the ICU now for initiation of Amioadarone drip to control his heart rate. He will also receive a small 250cc IV fluid bolus now to help normalize his BP. Will defer to further recommendations from cardiology consult (already on board) in the morning. Will continue with the patient's other medications (i.e-for treatment of CHF exacerbation). Of note, the patient appears to have some right CVA tenderness to palpation (alongside a "dirty" UA), making a diagnosis of pyelonephritis likely (for which he's already on empiric IV antibiotics). Recent renal U/S was negative for stones.
[2017-08-23] MEDS: Amiodarone 360 mg/D5W 200 ml 360 MG/200 ML BAG IV SCH (20:35)
[2017-08-23] MEDS ORDERED: Sodium Chloride 0.9% 250 ML IV STA ×2 (21:00→22:38)
--- NOTE | 2017-08-23 23:35 | CON ---
DATE: 08/23/2017 REASON FOR CONSULTATION: Acute kidney injury superimposed on chronic kidney disease stage III?. HISTORY OF PRESENT ILLNESS: A 36-year-old male known to me from prior evaluation in the hospital. The patient has never followed up in the office despite repeated recommendations. He was admitted yesterday with complaints of shortness of breath, dyspnea on exertion, increasing lower extremity edema. He was also complaining of bilateral flank pain, abdominal pain. In the emergency room, he was found to be hypotensive. He was also found to have acute kidney injury superimposed on his chronic kidney disease. He was also found to have elevated WBC count. His creatinine was found to be 2.8. His sodium was low at 132 and potassium was 5.1. His urinalysis revealed moderate leukocyte esterase. His urine toxicology screen was positive for opiates. PAST MEDICAL AND SURGICAL HISTORY: Morbid obesity, pancreatitis, acute on chronic pancreatitis, severe hypertension, hydronephrosis, history of right ureteral stent, removal of stent 1 month ago, recurrent UTI, urinary retention, edema, history of cholecystectomy and episodes of acute kidney injury. FAMILY HISTORY: Noncontributory. SOCIAL HISTORY: Smoker, history of alcohol use in the past, denies any drug abuse. ALLERGIES: LUZ INHIBITOR. MEDICATIONS AT HOME: Had been Dilaudid 2 mg q.6, Lasix 40 b.i.d., Pepcid 20, Coreg 12.5 b.i.d., Diovan 320, Aldactone 25 and pancreatic enzymes. REVIEW OF SYSTEMS: Complains of shortness of breath, cough, mucus, dyspnea on exertion, lower extremity edema, abdominal pain, flank pain, all other systems are reviewed and unremarkable. PHYSICAL EXAMINATION GENERAL: Morbidly obese young male sitting in bed in moderate distress. VITAL SIGNS: Blood pressure 103/56, heart rate 60, respiratory rate 20 and temperature 98.3. HEENT: Normocephalic, atraumatic, positive pallor. NECK: Supple, no JVD. LUNGS: Bilateral equal air entry, basilar rales, left greater than right. CARDIAC: S1, S2, regular rate and rhythm, no murmur, no rub. ABDOMEN: Obese, distended, soft, nontender, bowel sounds present. EXTREMITIES: 2+ pitting edema of the lower extremities. INTAKE AND OUTPUT: 1680/325. LABORATORY DATA: WBC 14.8, hemoglobin 10.9, hematocrit 33 and platelets 152. Sodium 129, potassium 4.6, chloride 97, CO2 of 24, BUN 71, creatinine 3.4, glucose 102, calcium 8.9, AST 53, ALT 41, albumin 3.3 and lipase 376. Urinalysis; yellow, slightly cloudy, pH 6.0, specific 1.020, protein 100, glucose negative, ketones negative, blood moderate, leukocyte esterase moderate, urine wbcs 25 to 50. Renal ultrasound; right kidney 7.1 cm, left kidney 10 cm. Echogenic focus in the lower pole of the left kidney. CURRENT MEDICATIONS: Coreg 12.5 b.i.d., Dilaudid, Eliquis, Lasix 80 mg IV q.12, Pancrease, Pepcid, Robitussin, ceftriaxone 1 g daily and Zaroxolyn 5. ASSESSMENT: 1. Acute kidney injury superimposed on chronic kidney disease stage III. 2. Fever, leukocytosis. 3. Suspect source of sepsis. 4. Congestive heart failure, total body volume overload. 5. Morbid obesity. 6. Relative hypotension. PLAN: 1. Agree with discontinuation of valsartan. 2. Empiric antibiotics to cover for UTI. 3. Agree with Lasix 80 mg IV q.12. 4. Agree with metolazone 2.5 b.i.d. 6. Discontinue IV fluids. 7. Followup cultures. 8. Monitor urine output. 9. Monitor daily labs. Thank you for the courtesy of this consultation. We will follow this patient closely with you. Angelica Don MD
--- NOTE | 2017-08-24 03:18 | CON ---
DATE: 08/23/2017 LOCATION: The patient is in room 369, bed 1, but now the patient is going to ICU 128, bed 7. REASON FOR CONSULTATION: Shortness of breath. HISTORY OF PRESENT ILLNESS: A 36-year-old male who is known to have cardiomyopathy, hypertension, chronic pancreatitis, renal colic, diverticulitis, admitted with left upper quadrant abdominal pain which radiate to his back and the patient is having increasing shortness of breath even at rest. Denies chest pian or palpitation. The patient also is known to have morbid obesity. PAST MEDICAL HISTORY: Significant for hypertension, morbid obesity, congestive heart failure secondary to alcohol abuse in the past, history of nonischemic cardiomyopathy, status post cardiac catheterization, recurrent pancreatitis. PAST CARDIAC HISTORY: Last catheterization was 2 to 3 years ago at [facility] and was told to have normal coronaries. PERSONAL HISTORY: He used to drink alcohol heavily, but claims that he has stopped. He still has acute tobacco abuse history. History of multiple admission with pancreatitis secondary to alcohol abuse. FAMILY HISTORY: Positive for diabetes. REVIEW OF SYSTEMS: All other systems reviewed. Positive mentioned in the history. The most recent echo is 08/05/2017, which showed LV ejection fraction about 40%, moderately dilated LV, [id number] concentric left ventricular hypertrophy, ejection fraction close to 40%, trace mitral regurgitation, trace tricuspid regurgitation, RVSP 18 mmHg. HOME MEDICATIONS: The patient was on Pancrease, carvedilol 12.5 mg b.i.d., Pepcid 20 daily, Lasix 40 b.i.d. which the patient stopped from last several days because of frequency urination, Aldactone 25 p.o. daily, Diovan 320 p.o. daily. PHYSICAL EXAMINATION: VITAL SIGNS: Blood pressure 103/56, respirations 18, pulse 135 per minute, temperature 100.2. HEENT: Head: Normocephalic. Eyes: Pupils normal. Conjunctivae normal. NECK: JVP low. Carotids equal. THORAX: AP diameter normal. LUNGS: Few basal rales. CARDIOVASCULAR: S1 and S2, regular rhythm. ABDOMEN: Protuberant. No organomegaly. EXTREMITIES: Chronic venous stasis and edema on the lower legs. LABORATORY DATA: WBC 14.8, hemoglobin 10.9, hematocrit 33.0, and platelets of 152. Sodium 129, potassium 4.6, BUN 71, creatinine 3.4. Calcium, bilirubin, AST, ALT were normal. Total protein 7.1 and albumin 3.3. The patient's EKG showed on admission flutter 2 to 1 block, heart rate normal at 150 to 160 per minute. Repeat EKG now shows atrial fibrillation at the rate of 130 per minute. CHF, hypertension, asthma, chronic pancreatitis secondary to ethanol abuse, sleep apnea, morbid obesity, GERD, diverticulitis, left kidney cyst due to renal failure. DIAGNOSES: Congestive heart failure, acute renal failure, recurrent pancreatitis, hypertension, morbid obesity, atrial flutter, rapid rate, renal failure. PLAN: We will transfer the patient to ICU. Carvedilol 12.5 b.i.d., Eliquis 2.5 mg b.i.d., Lasix 80 mg IV stat and 80 IV b.i.d, Zaroxolyn 5 mg p.o. stat and 5 mg p.o. daily. The patient is on Rocephin 1 g IV daily. The patient is followed by renal and we will continue to follow and monitor intake and output and monitor electrolytes and BUN. We will follow with you. Shayna Jay MD
[2017-08-24] MEDS: HYDROmorphone 2 mg/ml ISec IVP PRN ×6 (04:00→23:55)
[2017-08-24 06:34] LABS: BASO # 0.07 K/mm3 (0.0-2.0); BASO % 0.4 % (0.0-3.0); EOS # 0.1 (0.0-0.7); EOS % 0.4 % (1.5-5.0); GRAN # 11.8 (1.4-6.5); GRAN % 71.3 % (50.0-68.0); HEMATOCRIT 35.6 % (42.0-52.0); LYMPH # 2.5 (1.2-3.4); MEAN CELL VOLUME 95.2 fl (80.0-105.0); MEAN CORPUSCULAR HEMOGLOBIN 31.8 pg (25.0-35.0); MEAN CORPUSCULAR HGB CONC 33.4 g/dl (31.0-37.0); MEAN PLATELET VOLUME 10.5 fl (7.0-11.0); MONO # 2.1 (0.1-0.6); MONO % 12.9 % (1.0-6.0); RED CELL DISTRIBUTION WIDTH 14.4 % (11.5-14.5); WHITE BLOOD COUNT 16.6 10^3/ul (4.5-11.0)
[2017-08-24 07:17] LABS: ALB/GLOB RATIO 0.8 (1.1-1.8); BILIRUBIN,TOTAL 0.4 mg/dL (0.2-1.3); CALCIUM 8.7 mg/dL (8.4-10.5); POTASSIUM 4.5 mmol/L (3.6-5.0); TOTAL PROTEIN 7.3 g/dL (5.8-8.3)
[2017-08-24] MEDS: Amiodarone 360 mg/D5W 200 ml 360 MG/200 ML BAG IV SCH (07:31)
[2017-08-24 08:02] LABS: ARTERIAL BLOOD GAS HCO3 20.2 mmol/L (21-28); ARTERIAL BLOOD GAS PH 7.37 (7.35-7.45)
[2017-08-24] MEDS: Amylase/Lipase/Protease 5,000 U ECC PO SCH ×3 (08:57→18:06)
[2017-08-24] MEDS: cefTRIAXone 1 gm 1 GM/100 ML BAG IVPB SCH (09:04)
[2017-08-24] MEDS ORDERED: Cefepime 1gm in NS 100ml 1 GM/100 ML BAG IVPB SCH (09:45)
[2017-08-24] MEDS ORDERED: metOLazone 5 MG TAB PO SCH (10:00)
--- NOTE | 2017-08-24 11:31 | CON ---
ADDENDUM DATE: 08/24/2017 The patient's preliminary urine culture is showing a gram-negative rei. He is being treated with Maxipime. There is still no reason for any urologic intervention at this time. There is no obstructive uropathy and antibiotic treatment is all that is indicated at this time. I discussed with Dr. Maria of Infectious Disease. We are both in agreement on this. Juan José Lange MD
--- NOTE | 2017-08-24 13:56 | CON ---
DATE: 08/24/2017 HISTORY OF PRESENT ILLNESS: This is a 36-year-old gentleman with a history of chronic pancreatitis, morbid obesity, SUZANNE and renal stones, status post uretheral stent removal few weeks ago, who presented to [facility] on 08/22/2017 with complaint of left upper quadrant abdominal pain that radiated to his back and worsening shortness of breath. Of note, the patient has a history of CHF with mild left ventricular systolic dysfunction, left ventricular dilatation on the echo performed in 08/05/2017. Of note, the patient has dysuria, urinary frequency, and difficulty urinating. Concern for UTI and urinary retention was raised and renal ultrasound was done next day, which revealed no significant interval change compared with prior examination. There was no stone, solid mass lesion or hydronephrosis visualized in the left or right kidney. The patient was started on ceftriaxone with questionable success for UTI. Meanwhile, he developed atrial fibrillation with RVR, which did not respond to Cardizem drip and the patient was transferred to ICU for amiodarone drip to control the ventricular response. At the present time, he also complains of some abdominal tenderness, however, talks in full sentences, is not in respiratory or otherwise distress, he is generally comfortable. No fever. No chills. No sweats. No nausea. No vomiting. No diarrhea. No constipation. The patient has 650 mL of urine over the 12-hour period at night. PAST MEDICAL HISTORY: Chronic pancreatitis, hypertension, morbid obesity, hydronephrosis, status post ureteral stent removal a month ago, recurrent UTI, status post cholecystectomy. ALLERGIES: LUZ INHIBITORS. REVIEW OF SYSTEMS: Review of 12-organ system other than mentioned in history of present illness is negative. SOCIAL HISTORY: The patient is active smoker. He used to be a heavy drinker in the past, but not anymore. No illicit drugs. FAMILY HISTORY: Noncontributory. MEDICATIONS: Pancreatic enzyme supplements, Eliquis, Coreg, digoxin was given yesterday, Pepcid daily, Lasix 80 mg IV b.i.d., Dilaudid p.r.n., Zaroxolyn 5 mg p.o. daily, and ceftriaxone. PHYSICAL EXAMINATION: VITAL SIGNS: Heart rate 110, blood pressure 102/55, oxygen saturation 88% to 94%, respiratory rate 20, and temperature 97.9. HEENT: Head and neck atraumatic. NECK: Obese. HEART: Irregular rate and rhythm. S1 and S2 distant. ABDOMEN: Soft, moderatley tender in the left upper quadrant pain. No rebound tenderness. No voluntary or involuntary guarding. MUSCULOSKELETAL: Trace bilateral pedal and ankle edema. NEUROLOGIC: The patient moves all extremities spontaneously. SKIN: Color is moist. PSYCHIATRIC: The patient is alert and oriented x3, not in respiratory otherwise distress. LABORATORY DATA: WBC 16.6, hemoglobin 11.9, and platelet count 183. Sodium 131, potassium 4.5, chloride 98, carbon dioxide 23, BUN 82, creatinine 3.1, glucose 135, AST 43, ALT 44, and bilirubin 0.4. Lipase 376. ProBNP 5710 as well as troponin 0.05 as of 08/22/2017. U-tox positive for opiates. Urine positive for leukocyte esterase and negative for urine nitrites, WBC 25 to 30, RBC is 5 to 10, protein 100, negative for glucose, ketones, positive for blood. ASSESSMENT AND PLAN: This is a 36-year-old gentleman with chronic pancreatitis, status post kidney stone removal, who presented with atrial fibrillation with rapid ventricular response in the setting of some leukocytosis and symptomatic urinary tract infection. Renal ultrasound did not reveal any hydronephrosis; However I am concerned about continious UTI symptoms, rising leukocytosis and persistent LUQ pain (where recent procedure was done)-->will get CT abdomen and pelvis. Urine culture are still pending. At the present time, we will continue with antibiotics and we will follow septic workup. Meanwhile, the patient is on p.o. beta-blockers and we will continue with Coreg 12.5 mg p.o. b.i.d. The patient received one dose of digoxin yesterday I will hold on amiodarone drip. The patient maintains his blood pressure well. He is on high dose of Lasix in addition to zaroxylin-->as there is a possibility of sepsis driven afib with RVR, I will hold diuretics for now. Nephrology service is on board to evaluate for acute kidney injury, whose consult is appreciated. They suggest combination of congestive heart failure as well as sepsis contributing to worsening of his acute kidney injury. I will touch base with Nephrology service to elaborate on fluid management as it is important to maintain thin balance between avoiding renal hypoperfusion (hypovolemia) and fluid overload (CHF), which may also contribute to acute kidney injury. The patient's ABG 7.37/35/75. Lactate acid 1. We will continue to target euvolemia, euglycemia, normothermia, and oxygen saturation more than 100%. We will continue with DVT and GI prophylaxis. Addendum: CT abdo/pelvis: obstructing large stone with hydronephrosis on a left side, ?ruptured calyx (as discussed with Dr. Manning). Spoke with Dr. Lange--> patient is going to OR at 9 pm. Diuretics stopped, IVF started reji gentle hydration eliquis stopped, NPO ordered, abx upgraded. ccm time 40 min Manfred Daniel MD MTDD
--- NOTE | 2017-08-24 14:28 | CT ---
PROCEDURE: CT abdomen and pelvis dated 08/24/17. HISTORY: Intra-abdominal sepsis COMPARISON: None. TECHNIQUE: Contiguous axial images of the abdomen and pelvis. Oral contrast was administered. No IV contrast given. Coronal and Sagittal reformats generated. Radiation dose: Total exam DLP = 2067 mGy-cm. This CT exam was performed using one or more of the following dose reduction techniques: Automated exposure control, adjustment of the mA and/or kV according to patient size, and/or use of iterative reconstruction technique. FINDINGS: LOWER THORAX: Bibasilar atelectasis left greater than left. Questionable tiny left hand trace right effusions. No basilar pneumothorax. . There may also be trace pericardial effusion. Cardiomegaly. Small hiatal hernia. LIVER: Liver is enlarged measuring nearly 23 cm in CC dimension. No obvious hepatic mass collection or calcification. GALLBLADDER AND BILE DUCTS: S/P cholecystectomy. PANCREAS: Unremarkable. No mass. No ductal dilatation. SPLEEN: Spleen is enlarged measuring approximately 15.4 cm in AP dimension. No splenic mass collection or calcification. ADRENALS: Mildly enlarged left adrenal gland. KIDNEYS AND URETERS: There has been interval removal of a left ureteral stent. . Obstructing elliptical shaped calculus is seen in the left UPJ region measuring approximately 16.4 x 5.1 mm. . There is dilatation of the proximal left renal pelvis and left renal collecting system with infiltration changes in the perinephric fat. Small amount of perinephric fluid is present adjacent to the posterior superior margin of the upper pole left kidney suggesting ruptured calyx. . Fluid extends inferiorly along the para renal space and adjacent to the psoas muscle. Superimposed infection not excluded e Apparent left renal cyst with layering milk of calcium or gravel along the posterior dependent margin of a upper pole cyst. There is a additional tiny at calcification surface left lateral margin of the kidney. BLADDER: The urinary bladder is incompletely distended which may account minimal wall thickening. Muscular hypertrophy may contribute. Rule out cystitis. REPRODUCTIVE: Unremarkable. APPENDIX: Normal-appearing retrocecal appendix. BOWEL: Evaluation of the bowel is limited due to the lack of oral contrast material. . The stomach is incompletely distended. Visualized loops of small bowel exhibit normal contour and caliber. No evidence of acute mechanical small bowel obstruction. . Stool and air seen throughout the colon. Scattered colonic diverticula are present however no radiographic evidence of acute diverticulitis. PERITONEUM: As above. No evidence of free intraperitoneal air. LYMPH NODES: Unremarkable. No enlarged lymph nodes. VASCULATURE: Unremarkable. No aortic aneurysm. BONES: Mild multilevel degenerative spondylosis of the lower thoracic and lumbar spine most notably affecting the L4-L5 level. OTHER FINDINGS: None. IMPRESSION: Interval removal left ureteral stent. There is a obstructing calculus proximal left ureter with obstructive hydronephrosis. Infiltration changes and fluid present within the para renal spaces consistent with ruptured calyx. There is a small focal area of increased attenuation within the posterolateral margin of the superior aspect of the aforementioned fluid of uncertain etiology. This could represent some milk of calcium or calcification. The density is higher than that of hemorrhage no small amount of hyperdense hemorrhage. Rule out small amount of microcalcification. The aforementioned perinephric fluid extends inferiorly along the left psoas musculature. Superimposed infection not excluded. . There is upper pole cyst left kidney with peripheral calcification. . Hepato splenomegaly. Status post cholecystectomy. Diverticulosis without radiographic evidence of acute diverticulitis. Bibasilar atelectasis left greater than right. Questionable tiny left and trace right effusion. Cardiomegaly. Trace pericardial effusion may be present. These findings were discussed with Dr. Lalita Daniel at approximately 2:20 p.m. with written down and read back verification.
[2017-08-24] MEDS ORDERED: Sodium Chloride 0.9% 1,000 ML IV SCH (15:15)
--- NOTE | 2017-08-24 18:10 | PN ---
DATE OF SERVICE: 08/24/2017 SUBJECTIVE: This patient was seen and evaluated earlier today. The patient was transferred to the ICU overnight. The patient had AFib with rapid ventricular response at that time. The patient is still complaining of some epigastric discomfort. OBJECTIVE: VITAL SIGNS: On examination, temperature is afebrile, pulse 101, blood pressure 102/40, respiration is 35, O2 saturation 91%. HEENT: Atraumatic, anicteric. NECK: Supple. HEART: S1 and S2 heard with systolic murmur and is tachycardic. LUNGS: Bilateral air entry present, reduced at the bases. ABDOMEN: Soft. Tenderness present in the epigastric area. There is no rebound or guarding. EXTREMITIES: Bilateral edema present. NEUROLOGIC: Alert, oriented, moves all the extremities. LABORATORY DATA: WBC count is elevated to 16.6, hemoglobin 11.9, hematocrit 35.6, platelets 183, BUN 82, creatinine 3.1, is going up. LFTs normal. The CT findings reviewed. IMPRESSION: This 36-year-old patient with cardiomyopathy, chronic kidney disease, was admitted with acute kidney injury. The patient was found to have increased shortness of breath, had developed atrial fibrillation with rapid ventricular response on the floor and transferred to the Unit. The patient is also complaining of diffuse abdominal pain mostly in the epigastric area, history of ureteric stone, status post stent placement and removal, rule out sepsis, on empiric antibiotic therapy. The patient also has gastroparesis. PLAN: We would recommend: 1. Close followup, cautiously advance the diet, low-residue soft diet. 2. Continue the present management as per the road roller operator hot mix, fraud prevention analyst, and Renal. We will continue to closely follow up her care. 3. The patient does have a history of chronic pancreatitis, on pancreatic enzyme supplements. We will restart that. Thank you very much for allowing us to participate in the care of the patient. Souleymane Choe MD
--- NOTE | 2017-08-24 19:06 | PN ---
DATE: 08/24/2017 TIME: 03:25 afternoon. I got a call from Dr. Daniel, the decorating and assembly supervisor, that the patient was continuing to have abdominal pain. He sent him down for a CAT scan. The CAT scan showed an obstructing left ureteropelvic junction stone. The ultrasound done on this admission did not show any hydro, this is a different finding. I came back to the hospital to review the films. I spoke with the radiologist and also reviewed the films myself. He has an obstructing ureteropelvic junction stone that requires a stent placement. He has just finished having Jell-O and liquids. I called Dr. Don, the irs agent, who also is in agreement with the plan. I called Dr. Jay, the burn crew member, who had seen him previously and , his associate, who had seen this morning also came back to examine him to make sure he is as stable as he can be. The patient is aware of the plan to place a left pigtail stent later this evening, approximately 9:00. I also informed a family member, his aunt, as to what the plan was to make sure the family member was aware. The patient obviously is at high risk, but this needs to be done. We will wait until his stomach is empty. The nursing quarry supervisor dimension stone has been called. Anesthesia will also evaluate him. Juan José Lange MD
[2017-08-24] MEDS ORDERED: Sodium Chloride 0.9% 500 ML IV STA (19:12)
--- NOTE | 2017-08-24 19:15 | CON ---
DATE: 08/24/2017 CHIEF COMPLAINT: Positive urine culture for gram-negative rei. HISTORY OF PRESENT ILLNESS: This is a 36-year-old male with morbid obesity, BMI of 55 with a history of pancreatitis, history of hypertension, history of alcoholic cardiomyopathy, diverticulitis, kidney stone, history of tobacco use, and recently, the patient had hydronephrosis, had a stone, had stenting. Right ureteral stent was removed approximately 2 weeks ago. Now, the patient was admitted with low-grade fevers, was hypotensive, tachycardic, dyspneic and review of systems reveals no abdominal pain now. No diarrhea or constipation. No headaches or blurred vision. PAST MEDICAL HISTORY: Significant for morbid obesity, BMI of 55, pancreatitis, hypertension, alcoholic cardiomyopathy, diverticulitis, kidney stones, and tobacco use. PAST SURGICAL HISTORY: Significant for cholecystectomy and the patient recently had a right ureteral stent removed approximately 2 weeks ago. ALLERGIES: THE PATIENT HAS AN LUZ INHIBITOR ALLERGY. MEDICATIONS AT HOME: Are noted to had be on Dilaudid, Lasix, Pepcid, Coreg, , Diovan, and spironolactone. PHYSICAL EXAMINATION: GENERAL: The patient is in bed, in no acute distress. VITAL SIGNS: Temperature of 100.2, heart rate of 109, respiratory rate of 30, and blood pressure is of 106/50, the blood pressure was down to 75/37 this morning. HEENT: Unremarkable. NECK: Supple. LUNGS: Decreased breath sounds. HEART: Normal S1 and S2. ABDOMEN: Soft and nontender. LABORATORY DATA: Reveals white count 12,900 which is up to 16,600, hemoglobin of 11, and platelets of 183. Chemistries reveals the patient's creatinine is 2.8 and it was 1.4 on 08/04/2017 and AST of 73. Urinalysis reveals 25-30 WBCs, few bacteria. The patient's toxicology reveals opiates are positive and microbiology reveals a gram-negative rei in the urine. ASSESSMENT AND PLAN: A 36-year-old male with morbid obesity, body mass index of 55, pancreatitis, alcoholic cardiomyopathy, diverticulitis, kidney stones, tobacco use, hypertension, with recent right renal stone with a right ureteral stent, which was removed approximately 2 weeks ago, now presenting with severe sepsis with gram-negative rei in the urine as a source with acute kidney injury on top of chronic kidney disease. We will start the patient on meropenem. Discontinue the ceftriaxone. Check on the identification of gram-negative rei in the urine. Order blood cultures. Recommend a CAT scan of the abdomen and pelvis with p.o. contrast only and we will also order HIV test and we will follow closely with you. Roland Maria MD
--- NOTE | 2017-08-24 21:00 | PN ---
DATE: FOLLOWUP NOTE SUBJECTIVE: The patient is a 36-year-old morbidly obese, male, who has a history of cardiomyopathy, hypertension, chronic pancreatitis, and atrial fibrillation/atrial flutter, who was initially admitted because of rapid atrial fibrillation. The patient's abdomen and pelvis scan performed today revealed obstructing left calculus seen on the left ureteropelvic junction or region measuring approximately 16.4 x 5.1 mm. There is dilatation of the proximal left renal pelvis and left renal collecting duct system with infiltrating changes in the perinephric fat. Small amount of perinephric fluid is present adjacent to the posterior superior margin of the upper pole of the left kidney suggesting ruptured calyx. Superimposed not excluded. The patient is being is being planned for semi-urgent ureteric stenting. The patient denied any chest pain at this time. PHYSICAL EXAMINATION VITAL SIGNS: Blood pressure 102/40, heart rate 106, temperature 98.8 and respirations 22. HEENT: Normocephalic. CHEST: Diminished breath sounds at the bases. HEART: S1 and S2 regular. EXTREMITIES: A 2+ pitting edema. LABORATORY DATA: Hemoglobin and hematocrit 11.9 and 35.6, white count 16.6 and platelet count 183,000. SMA-7. Sodium 131, potassium 4.5, chloride 98, CO2 of 23, glucose 135, BUN 82, creatinine 3.1. Urine drug screen is positive for opiates. EKG on admission revealed atrial flutter with rapid ventricular response, heart rate 148, that EKG was done on admission. Chest x-ray revealed cardiomegaly with [id number] CHF on admission. The most recent echo on 01/10/2017 revealed ejection fraction estimated at 40%, [id number] concentric LVH, and dilated left ventricle. ASSESSMENT: 1. Congestive heart failure with mildly depressed left ventricular systolic function. 2. Atrial flutter/fibrillation. 3. Left ureteric stone with left hydronephrosis. 4. Morbid obesity. 5. Acute renal insufficiency. RECOMMENDATIONS: Continue Coreg 12.5 mg twice a day, Lasix 80 mg intravenously twice a day. Hold Eliquis for now. The patient can undergo for ureteric stent because of the urgency of his condition, to be followed post procedure in ICU. The case was discussed with paint dipper, Dr. Daniel as well as with the urologist, Dr. Lange. Paul Driver MD
[2017-08-24] MEDS ORDERED: Iohexol 240 (50 ml) ONE (21:10)
[2017-08-24] MEDS ORDERED: Lidocaine 2% Jelly (30 ml) ONE (21:10)
--- NOTE | 2017-08-24 21:13 | PN ---
DATE: SUBJECTIVE: The patient is a 36-year-old, seen and examined. Yesterday's events noted. The patient was found to be atrial fibrillation/flutter. He was started on Cardizem drip. He was transferred to ICU, was diuresed. When I saw this patient, he was complaining of left flank pain. The patient was sent for CT scan that shows obstructing ureteral stone, Dr. Lange was consulted. The patient is planned to have ureteral stent placed around 9 o'clock to night. PHYSICAL EXAMINATION: GENERAL: The patient is awake, alert, oriented, communicative, complain of left flank pain, complain of nausea, and decreased appetite. VITAL SIGNS: Afebrile, pulse 106, respirations 25 and blood pressure 102/40. LUNGS: Bilateral few soft crackles at bases. HEART: S1 and S2 audible. ABDOMEN: Soft, obese, nontender. No rebound. No guarding. NEUROLOGIC: The patient is awake, alert, oriented and communicative. LABORATORY DATA: WBC is 16.6, hemoglobin 11.9, hematocrit 35.6, and platelets 183. Chemistry; sodium 131, potassium 4.5, chloride 98, CO2 of 23, BUN 82, creatinine 3.1, and blood sugar is 135. Lipase is 376. Urine positive for opioids. CT of the abdomen and pelvis showed obstructing calculus in the proximal left ureter with obstructive hydronephrosis and infiltration changes and fluid present within the pararenal space consistent with ruptured calyx. There is small focal area of increased attenuation, bibasilar atelectasis and diverticulosis is appreciated and urine is growing gram negative rods. ASSESSMENT AND PLAN: 1. Pyelonephritis. 2. Left ureteral stone with hydronephrosis. 3. Congestive heart failure. 4. Non-ischemic cardiomyopathy. 5. Morbid obesity. 6. Recurrent pancreatitis. PLAN: Plan is currently the patient is on amiodarone drip. He is getting carvedilol, he is on analgesic, he is getting Eliquis. He was on Lasix. Currently, he is receiving meropenem and IV fluid. He is planned for cystoscopy and stent placements to night. We will follow up CBC and CMP in the morning. Sammy Santiago MD [facility] # [id number]
[2017-08-24] MEDS ORDERED: Propofol 10 mg/ml Inj (20 ML) ONE (21:54)
[2017-08-24] MEDS ORDERED: Midazolam 2 MG/2 ML VIAL ONE (21:54)
--- NOTE | 2017-08-24 23:35 | OP ---
PROCEDURE DATE: 08/24/2017 PREOPERATIVE DIAGNOSIS: Obstructing left ureteral calculus at the ureteropelvic junction. POSTOPERATIVE DIAGNOSIS: Obstructing left ureteral calculus at the ureteropelvic junction. PROCEDURE: Cystoscopy, insertion of left pigtail stent. SURGEON: Juan José Lange MD ANESTHESIA: LMA. DESCRIPTION OF PROCEDURE: After adequate LMA anesthesia was given, the patient was placed in lithotomy, prepped and draped in usual manner. A 22-Tuvaluan cystourethroscope was introduced under direct vision. He had a bulbous urethral stricture, somewhat wide caliber, but I did not want to try to pass the 22-Tuvaluan initially, so I switched to a 17-Tuvaluan scope, could easily go through the area into the bladder, obtained urine for C and S. The bladder showed no stones. Orifices normal in appearance and location. There was no efflux from the left, clear efflux from the right. No tumors or foreign bodies. A 0.035 Sensor wire was then advanced through the 17-Tuvaluan scope which was then removed, and the 22-Tuvaluan cystoscope was then reintroduced over the wire into the bladder easily. The Sensor wire was removed. An open-ended catheter was placed at the opening of left ureteral orifice. A 0.035 Glidewire was then passed through the open-ended catheter, advanced up into the kidney. The open-ended catheter was advanced over the Glidewire into the kidney. The Glidewire was removed. The 0.035 Sensor wire was then placed through the open-ended catheter. The open-ended catheter was then removed leaving the Sensor wire in place. Over the Sensor wire, a 22 x 32 cm multi-length 4.8-Tuvaluan stent was then passed. When properly placed, the Sensor wire was removed. The stent coiled nicely in the left renal pelvis and in the bladder. Initially when the open-ended catheter was advanced over the Glidewire into the kidney, I obtained urine from the left renal pelvis which had a hydronephrotic drip and that was sent for C and S as well as the bladder C and S. The bladder was drained; the cystoscope was removed. The patient was awakened and brought back to the ICU in stable condition. Juan José Lange MD
[2017-08-25] MEDS ORDERED: Sodium Chloride 0.9% 500 ML IV STA (00:56)
[2017-08-25] MEDS: HYDROmorphone 2 mg/ml ISec IVP PRN ×5 (03:59→21:56)
[2017-08-25 06:47] LABS: ALB/GLOB RATIO 0.8 (1.1-1.8); BILIRUBIN,TOTAL 0.5 mg/dL (0.2-1.3); CALCIUM 8.5 mg/dL (8.4-10.5); POTASSIUM 4.5 mmol/L (3.6-5.0); TOTAL PROTEIN 7.1 g/dL (5.8-8.3)
[2017-08-25] MEDS ORDERED: Sodium Chloride 0.9% 1,000 ML IV STA (07:58)
[2017-08-25 08:09] LABS: BASO # 0.05 K/mm3 (0.0-2.0); BASO % 0.3 % (0.0-3.0); EOS # 0.1 (0.0-0.7); EOS % 0.6 % (1.5-5.0); GRAN # 12.41 (1.4-6.5); GRAN % 70.9 % (50.0-68.0); HEMATOCRIT 33.5 % (42.0-52.0); LYMPH # 2.5 (1.2-3.4); LYMPH % 14.5 % (22.0-35.0); MEAN CELL VOLUME 95.2 fl (80.0-105.0); MEAN CORPUSCULAR HEMOGLOBIN 31.3 pg (25.0-35.0); MEAN CORPUSCULAR HGB CONC 32.8 g/dl (31.0-37.0); MEAN PLATELET VOLUME 10.7 fl (7.0-11.0); MONO # 2.4 (0.1-0.6); MONO % 13.7 % (1.0-6.0); RED CELL DISTRIBUTION WIDTH 14.4 % (11.5-14.5); WHITE BLOOD COUNT 17.5 10^3/ul (4.5-11.0)
[2017-08-25] MEDS: Amylase/Lipase/Protease 5,000 U ECC PO SCH ×3 (08:10→17:53)
--- NOTE | 2017-08-25 08:19 | CON ---
DATE: 08/23/2017. HISTORY OF PRESENT ILLNESS: This is a 36-year-old male with multiple medical issues. The patient has a history of intermittent pancreatitis and reportedly diverticulitis. He had a stent in place which was recently removed. He had been seen in the office by Dr. Lange for urinary frequency and urgency. He began having pain about a week ago, reports he has been taking his medications; however, the pain is not resolved. He is feeling bloated. He denies any fever or chills and presented to the hospital where he was then admitted. A consultation was requested regarding recent stent removal. PAST MEDICAL HISTORY: Significant for morbid obesity, congestive heart failure, intermittent pancreatitis, hypertension, urinary tract infection and leg edema. MEDICATIONS AT HOME: Include Dilaudid, Lasix, Pepcid, Coreg, Pancrease, valsartan and Aldactone. SOCIAL HISTORY: Positive for smoking. Used to be heavy EtOH user. FAMILY HISTORY: Noncontributory to his current issues. REVIEW OF SYSTEMS: Positive for shortness of breath. Positive for bloating. Positive for urinary frequency and urgency. Positive for leg edema. Positive for left-sided abdominal pain. Negative for fevers or chills. Negative for gross hematuria. Negative for any headaches or weakness. Negative for lower extremity numbness. Other systems are noncontributory and are negative. PHYSICAL EXAMINATION: GENERAL: The patient is awake and alert. He is sitting in bed and standing up. He is in no acute distress. VITAL SIGNS: He is afebrile, temperature of 98.8, pulse of 80, respirations 16 and blood pressure 113/58. NECK: Supple. There is no adenopathy. CHEST: Reveals an increased inspiratory effort with rhonchi noted. CARDIAC: Shows positive S1, S2. There is 1+ peripheral edema noted. ABDOMEN: Soft, obese, nontender, nondistended. There is no rebound or guarding. There is no mass. There is no CVA tenderness. GENITOURINARY: Phallus is normal. Scrotum is normal. Testes bilaterally descended, nontender, no masses. Epididymis are normal. EXTREMITIES: There is no cyanosis. There is 1+ edema of his lower extremities. LABORATORY DATA: WBC count of 14.8, creatinine elevated at 3.4, BUN of 71, lipase elevated at 376. BNP of 5710. RADIOLOGY REPORT: No pertinent studies were done at this time. IMPRESSION AND PLAN: This is a 36-year-old male, morbidly obese with congestive heart failure. Urinalysis shows 25 to 30 wbcs and 5 to 10 rbcs. No current cultures have been done. The patient is currently not having symptoms of renal colic, but recently had a stent removed by report from Dr. Lange. There were multiple encrustation on the stent. The patient needs treatment of his congestive heart failure likely chronic pancreatitis, possible diverticular disease. Plan will be to hydrate the patient, start on IV antibiotics, needs treatment of his congestive heart failure and current shortness of breath. Plan on imaging, CT scan abdomen and pelvis to see if there are any obstructing stones. We will continue to follow the patient with you. Kamari Love MD
--- NOTE | 2017-08-25 09:26 | CON ---
DATE: 08/24/2017 CONSULTATION CHIEF COMPLAINT: Increased heart rate, patient with a history of a prior left renal stone. HISTORY OF PRESENT ILLNESS: This is a 28-year-old male with a very complicated medical history including history of a cardiomyopathy, hypertension with chronic pancreatitis. He was admitted with shortness of breath, difficulty walking, was felt to be in heart failure, also had a tachyarrhythmia was transferred to the unit. I had seen him in the past for a history of a left ureteral stone. The patient had a prior cysto with left stent placement. He was going to have an ESWL with the stone was visualized. We could not visualize the stone on any plain x-ray. The patient was also taken to the stone center to have simulation to see if they could see it and they could not see it, complicating this as the patient's weight of well over 350 pounds. The stent had been in for approximately 6 weeks. I took the stent out in the hospital, stone was not seen. The patient has been asymptomatic from a urine urologic point of view. On this admission, he had a renal ultrasound done which did not show any hydronephrosis. There is a echogenic focus in the lower pole of the left kidney which may represent the stone; as long as it stays there, nothing has to be done. He has a history of a left renal cysts with milk of calcium layering which has been stable for based on his prior CAT scans and ultrasounds which have been done over the last year or two. He currently is comfortable with no flank pain, he has no urologic symptoms. PAST MEDICAL HISTORY: Significant as mentioned for the morbid obesity, cardiomyopathy, congestive heart failure and recurrent pancreatitis. SOCIAL HISTORY: He states he is no longer drinking. He still smokes. Multiple admissions for alcoholic pancreatitis. FAMILY HISTORY: Noncontributory. REVIEW OF SYSTEMS: Currently, no symptoms referable to the head, eyes, ears, nose or throat. He has some shortness of breath. No chest pain. No nausea or vomiting. No psychiatric, dermatologic symptoms. PHYSICAL EXAMINATION: VITAL SIGNS: Shows him to be afebrile, pulse is 110, blood pressure is 112/79, respirations 20. HEENT: Normocephalic. Sclerae are clear. Conjunctivae noninjected. GENERAL: He is morbidly obese. CHEST: No CVA pain. ABDOMEN: Soft. No rebound or guarding. No purpura. LABORATORY DATA: Shows a creatinine 3.1 with a BUN of 82. His white count is 16,000, hemoglobin is 11.9, 25-30 WBCs, 5-10 RBCs in his urine. DIAGNOSTIC DATA: The patient had an ultrasound done. The ultrasound, as mentioned in my HPI, shows no evidence of hydronephrosis. There is an echogenic focus within the left lower pole of the kidney, nonobstructing. There also is the known renal cyst with milk of calcium layering approximately the same size as previously. IMPRESSION: No evidence of any acute urologic problem at this time. His worsening renal function may be due to prerenal azotemia from his cardiac status. There is no reason for any urologic intervention at this time. The only reason we would do any intervention is if he became obstructed by a stone and needed to have a stent placed, but again the stone is not visible on plain x-ray. Juan José Lange MD
--- NOTE | 2017-08-25 09:35 | PN ---
DATE: 08/24/2017 SUBJECTIVE: . He received IV Cardizem at 5 mg per hour. He also received amiodarone. Not currently, he is off Cardizem and amiodarone, but he is on Coreg 12.5 b.i.d. He is lying in bed. He is complaining of shortness of breath. He complains of some chest tightness and cough. He also complains of abdominal pain. He complains of nausea. PHYSICAL EXAMINATION GENERAL: Morbidly obese middle-aged male lying in bed in the ICU in moderate distress. VITAL SIGNS: Blood pressure 102/40, heart rate 98, respiratory rate 24-28, temperature 98, T-max 100.2. HEENT: Normocephalic, atraumatic, positive pallor. NECK: Supple, no JVD. LUNGS: Bilateral equal entry, bilateral rhonchi, basilar rales, decreased air entry at bases. CARDIAC: S1 and S2, irregularly irregular, no murmur, no rub. ABDOMEN: Obese, distended, soft, positive tenderness, bowel sounds present. EXTREMITIES: 1+ pitting edema of the lower extremities. INTAKE AND OUTPUT: 2756/925. LABORATORY DATA: WBC 16.6, hemoglobin 11.9, hematocrit 36, platelets 183. Sodium 131, potassium 4.5, chloride 98, CO2 23, BUN 82, creatinine 3.1, glucose 135, calcium 8.7, AST 43, ALT 44, albumin 3.3. Urine culture gram-negative rei. CT of the abdomen and pelvis; mildly enlarged left adrenal gland, obstructing elliptical calculus in the left UPJ with dilatation of the proximal left renal pelvis and renal collecting system and infiltration in the perinephric fat. CURRENT MEDICATIONS: Coreg 12.5 b.i.d., Dilaudid, Eliquis, Lasix 80 IV q. 12, meropenem 250 q. 12, amylase, Pepcid, normal saline at 100, Zaroxolyn 5 mg daily. ASSESSMENT AND PLAN: 1. Acute kidney injury superimposed on chronic kidney disease stage III. 2. Atrial fibrillation with rapid ventricular rate. 3. Sepsis. 4. Obstructive uropathy, left-sided hydronephrosis, pyelonephritis. 5. Morbid obesity. 6. Severe hypertension. 7. Hypertensive heart disease, cardiomyopathy. 8. Recurrent pancreatitis. 9. Hyponatremia. 10. Bandemia, gram-negative urinary tract infection, pyuria. PLAN: 1. Antibiotics to cover for resistant gram-negative UTI. 2. Dose all antibiotics for creatinine clearance about 30 mL/minute. 3. Case discussed with Dr. Lange at length, the patient needs left ureteral stent to relieve obstruction and to drain the left kidney. 4. Close monitoring in the ICU. 5. Heart rate control with beta chava. 5. IV fluid resuscitation for the time being. 6. Monitor urine output closely. 7. Monitor daily electrolytes and kidney function. Case discussed with the patient at bedside, ICU staff at length, Dr. Lange, Dr. Sammy Santiago. More than 35 minutes spent in the care of this critically ill patient. Angelica Don MD
[2017-08-25] MEDS ORDERED: Digoxin 250 mcg (0.25 mg) Tab PO STA (09:48)
--- NOTE | 2017-08-25 10:10 | PN ---
DATE: 08/25/2017 SUBJECTIVE: The patient is in bed, seen early this morning, room 128, bed 7. No fevers, no chills. PHYSICAL EXAMINATION: VITAL SIGNS: On exam, temperature 98, blood pressure is 111/50, respiratory rate 24, heart rate of 106. HEENT: Unremarkable. NECK: Supple. LUNGS: Have decreased breath sounds. HEART: Normal S1, S2. ABDOMEN: Soft, nontender. LABORATORY DATA: Reveals a white count of 16,600, hemoglobin of 11, platelets of 183. Chemistries reveal a BUN of 84, creatinine of 3.4. Urinalysis is noted and toxicology is reviewed. Microbiology reveals a gram-negative rei in the urine. Blood cultures are pending. The patient had a CT scan of the abdomen and pelvis yesterday. CT scan of the abdomen and pelvis showed there is an obstructing calculus, proximal left ureter hydronephrosis. The patient was taken to the OR yesterday by Dr. Lange and had a left ureteral calculus with cystoscopy and insertion of the left pigtail stent. ASSESSMENT/PLAN: This is a 36-year-old morbidly obese male with a BMI of 55, pancreatitis, hypertension, alcoholic cardiomyopathy, diverticulitis, kidney stones, tobacco use who was admitted with severe sepsis with obstructing renal stone, status post cystoscopy and a pigtail stent placement yesterday and today is postop procedure one, with a gram-negative rei in the urine in a patient with acute kidney injury on top of chronic kidney injury, on meropenem. Day #2 awaiting for identification and sensitivity of gram-negative rei. We will follow closely with you. Case was discussed with Dr. Lange. Dr. Santiago. Roland Maria MD
--- NOTE | 2017-08-25 10:16 | PN ---
DATE: 08/25/2017 SUBJECTIVE: The patient seen, examined at bedside. He is comfortable, however, still complains of left nasogastric and upper quadrant pain which appears to be somewhat better since yesterday. The patient is ordering food from menu and appears to be having no problem completing this conversation. He appears very comfortable. OBJECTIVE: VITAL SIGNS: Blood pressure 103/65, heart rate 106, oxygen saturation 96%, respiratory rate 25. ENT: Head and neck atraumatic. LUNGS: Clear to auscultation bilaterally. HEART: Irregular rate and rhythm. S1, S2 normal. ABDOMEN: Soft, tender in left nasogastric and upper quadrant area. No rebound tenderness. No voluntary or involuntary guarding. The tenderness likely moderate in severity. SKIN: Moist. PSYCH: The patient is alert, awake and oriented x3. LABORATORY DATA: WBC is 16.6, hemoglobin 11.9, platelet count 183. Sodium 134, potassium 4.5, chloride 101, carbon dioxide 24, BUN 84, creatinine 3.4 up from 3.1. Urine output overnight bout 30 mL/hour, glucose 124, AST 44, ALT 44. MEDICATIONS: Pancreatic enzyme supplements, Coreg, Pepcid, Robitussin p.r.n., Dilaudid p.r.n., meropenem, normal saline bolus. ASSESSMENT AND PLAN: This is a 36-year-old gentleman who presented with severe sepsis due to urinary tract infection in the setting of infected stone and hydronephrosis in the left kidney.. The patient was emergently taken to OR for cystoscopy and stent placement. We are waiting for renal function to improve, creatinine to drop and urine output to pickup. A renal followup is in order. The patient mental status appears to be improved. Pain is somewhat better, however, still present. The patient is continued to be on antibiotic, septic workup is in progress. Urine culture showed gram-negative rods. ID service is following him as well. We will continue to target euvolemia, euglycemia, normothermia and oxygen saturation more than 90%. service ordered CT scan of the abdomen and pelvis which will be done and followed up. We will continue with DVT, GI prophylaxis. We will resume Apixaban as soon as service cleared him for it. We will hold diuretics as we are concerned about hypovolemia in the setting of sepsis (rising wbc, persistent pain) and rather will work with judicious fluid boluses. Addendum: regular SVT on monitor: discussed with Dr. Jay at bedside: likely aflutter-->will increase dose coreg to 25 mg BID, one dose of dig 0.25 mg, will repeat CXR. If still aflutter with RVR-->will start amiodarone drip ccm time 40 min Manfred Danile MD GEOVANNI
--- NOTE | 2017-08-25 11:57 | PN ---
DATE: 08/25/2017 SUBJECTIVE: The patient had a left pigtail stent placed with an obstructing ureteropelvic junction stone. OBJECTIVE: VITAL SIGNS: He is afebrile. His pulse is 107, blood pressure is 111/50, and respirations 20. LABORATORY DATA: His white count is still 17,500. His chemistries show BUN of 84 with creatinine of 3.4. Urine cultures are still pending. I sent a urine culture both from the bladder upon introduction of the cystoscope last night as well as collection from the left renal pelvis prior to placing the stent. He still has significant medical issues with an alcoholic cardiomyopathy, chronic pancreatitis, and hypertension. Hopefully, the kidney function will improve with drainage on the left side. There appears to also be a prerenal component possibly related to his cardiomyopathy. Right now, no further urologic procedure is intended. I have ordered KUB with both oblique to see whether the stone is visible. If it is not visible, I will talk to Renal about possibly trying alkalinization of his urine. If it is visible though it has not been able to be seen in the past, he can have an elective ESWL but previously the stone was not visible. Juan José Lange MD
--- NOTE | 2017-08-25 12:57 | US ---
HISTORY: Leg pain and swelling. Evaluate for DVT PHYSICIAN(S): Johny Alarcon MD. TECHNIQUE: Duplex sonography and color-flow Doppler with graded compression were used to evaluate the deep venous systems of both lower extremities. The exam is limited by body habitus P FINDINGS: The visualized deep venous systems of both lower extremities are sonographically normal and compressible. Normal wave forms and augmentation are seen. There is no sonographic evidence for deep venous thrombosis in the visualized segments of both lower extremities. IMPRESSION: No sonographic evidence for deep venous thrombosis in the visualized segments of both lower extremities. Limited study
--- NOTE | 2017-08-25 14:36 | PN ---
DATE: 08/25/2017 LOCATION: The patient is in ICU 128, bed 7. REASON FOR CONSULTATION AND FOLLOWUP: CHF, atrial fibrillation, atrial flutter, renal failure, and left hydronephrosis. SUBJECTIVE: The patient's abdominal pain is slightly less, as compared to before. The patient also has shortness of breath, it is improving, but he still complains of shortness of breath. Denies chest pain or palpitation. PHYSICAL EXAMINATION: VITAL SIGNS: Blood pressure 111/50, respirations 20, heart rate 111, 107 per monitor; while I am examining the patient, it is around 130. The patient is afebrile. HEENT: Head is normocephalic. Eyes, pupils are normal. Conjunctivae slightly pale. NECK: JVP low. Carotid equal. THORAX: AP diameter normal. LUNGS: No significant rales. CARDIOVASCULAR: S1 and S2. ABDOMEN: Protuberant. No organomegaly. EXTREMITIES: Swelling in the legs is less. LABORATORY DATA: WBC 17.5, hemoglobin 11.0, hematocrit 33.5, and platelets 256. Sodium 134, potassium 4.5, BUN 84, and creatinine 3.4. AST and ALT normal. Total protein and albumin normal. The patient had a recent echo on 08/05/2017, which showed LV ejection fraction of 40%, moderately dilated LV, [id number] concentric left ventricular hypertrophy, trace mitral regurgitation, and tricuspid regurgitation, RVSP 18 mmHg. DIAGNOSES: Renal failure, status post hydronephrosis, left kidney, status post stent insertion by Urology, congestive heart failure, hypertension, asthma, chronic pancreatitis secondary to ethanol abuse, sleep apnea, morbid obesity, gastroesophageal reflux disease, diverticulosis, left kidney cyst, anemia, possible urinary tract infection. PLAN: The patient's heart rate is still rapid, so we will increase carvedilol to 25 mg b.i.d. We will also give digoxin. We will do a portable chest x-ray to evaluate CHF. Lasix and metolazone had been on hold. We will follow with you. Shayna Jay MD
--- NOTE | 2017-08-25 19:57 | PN ---
DATE: SUBJECTIVE: The patient is 36 years old, seen and examined. Still has shortness of breath. Left flank is better than before. Denies any nausea or vomiting. Does not have appetite. PHYSICAL EXAMINATION: VITAL SIGNS: He is afebrile. Pulse 90, respirations 22, and blood pressure 116/53. LUNGS: Bilateral fair airflow. No rhonchi or crackles. HEART: S1 and S2 audible. Regular rate and rhythm and is tachycardic. ABDOMEN: Soft. Slight left flank discomfort. NEUROLOGIC: The patient is awake, alert, oriented, and communicative. EXTREMITIES: Bilateral legs +1 edema. LABORATORY EXAMINATION: WBC 17.5, hemoglobin 11, hematocrit 33.5, and platelets 256. Chemistries: Sodium 134, potassium 4.5, chloride 101, CO2 of 24, BUN 84, and creatinine 3.4. Blood sugar of 124. Urine is growing Klebsiella pneumoniae. Blood cultures are negative. ASSESSMENT: 1. Left nephrolithiasis. 2. Renal colic. 3. Status post stent placement. 4. Congestive heart failure. 5. Recurrent pancreatitis. 6. Short period of atrial flutter, but currently the patient is in sinus rhythm. PLAN: Currently, the patient is on carvedilol. He is getting analgesic, although it was reported to me that when he gets his Dilaudid dose, he becomes hypotensive. I spoke to the patient, and we will cut down his Dilaudid to 1.5 mg q. 4 p.r.n. Currently, he is on Eliquis, although he is in sinus rhythm. We will discuss with Cardiology for further management of that. He is receiving meropenem, and we will follow up his CBC and CMP in a.m. Sammy Santiago MD
--- NOTE | 2017-08-25 22:21 | PN ---
DATE: 08/25/2017 SUBJECTIVE: The patient is seen in the ICU. He is lying in bed. He is still complaining of left flank pain, but it is much improved. He had left ureteral stent placed last night. He is still complaining of shortness of breath. Chest tightness intermittently. Some cough. PHYSICAL EXAMINATION: GENERAL: Morbidly obese young male, lying in bed in the ICU. VITAL SIGNS: Blood pressure 116/87, heart rate 90, respiratory rate 20, and temperature 97. HEENT: Normocephalic and atraumatic. Positive pallor. NECK: Supple. No JVD. LUNGS: Bilateral equal air entry, bilateral rhonchi, and basilar rales. CARDIAC: S1 and S2, Irregularly irregular rate, no murmur, no rub. ABDOMEN: Obese, distended, and soft. EXTREMITIES: 1+ pitting edema of the lower extremities, chronic stasis changes, dry skin. INTAKE AND OUTPUT: 2230/1350. LABORATORY DATA: WBC 17.5, hemoglobin 11, hematocrit 34, and platelets 256. Sodium 134, potassium 4.5, chloride 101, CO2 of 24, BUN 84, creatinine 3.4, glucose 124, and calcium 8.5. Phosphorus not checked. AST 44, ALT 44, and albumin 3.1. Urine culture, Klebsiella pneumoniae. Lower extremity ultrasound, no DVT. CURRENT MEDICATIONS: Coreg 25 b.i.d.; Dilaudid; Eliquis 2.5 b.i.d.; Lasix 80 IV b.i.d., on hold; meropenem 250 q.12 hours; Pepcid; guaifenesin; Zaroxolyn, on hold; and normal saline total of 2 L given. ASSESSMENT: 1. Acute kidney injury superimposed on chronic kidney disease stage II/III. 2. Obstructive uropathy. 3. Left pyelonephritis. 4. Klebsiella urinary tract infection. 5. Severe hypertension. 6. Cardiomyopathy, congestive heart failure. 7. Morbid obesity. 8. Recurrent pancreatitis. 9. Suspected sleep apnea. 10. Recurrent kidney stones. 11. History of urinary retention. PLAN: 1. Hold Lasix and Zaroxolyn. 2. Agree with IV fluid resuscitation. 3. Antibiotics for Klebsiella UTI/pyelonephritis. 4. Dose all antibiotics for creatinine clearance about 30 mL/minute. 5. Monitor blood pressure closely. 6. Monitor urine output. 7. Monitor daily labs. 8. Expect to see creatinine to start to come down soon. Case discussed at bedside with the patient at length. All questions answered. Case discussed with Dr. Santiago. Case discussed with Dr. Lange. More than 35 minutes were spent in the care of this critically ill patient. Angelica Don MD
[2017-08-26] MEDS: HYDROmorphone 2 mg/ml ISec IVP PRN ×6 (02:02→22:32)
[2017-08-26] MEDS ORDERED: Metoprolol 1 mg/ml Inj IVP ONE (04:27)
[2017-08-26 06:24] LABS: BASO # 0.02 K/mm3 (0.0-2.0); BASO % 0.1 % (0.0-3.0); EOS # 0.1 (0.0-0.7); EOS % 0.8 % (1.5-5.0); GRAN # 10.24 (1.4-6.5); GRAN % 71.4 % (50.0-68.0); HEMATOCRIT 36.8 % (42.0-52.0); LYMPH # 2.3 (1.2-3.4); MEAN CELL VOLUME 95.8 fl (80.0-105.0); MEAN CORPUSCULAR HEMOGLOBIN 31.3 pg (25.0-35.0); MEAN CORPUSCULAR HGB CONC 32.6 g/dl (31.0-37.0); MEAN PLATELET VOLUME 10.7 fl (7.0-11.0); MONO # 1.7 (0.1-0.6); MONO % 11.7 % (1.0-6.0); RED CELL DISTRIBUTION WIDTH 14.4 % (11.5-14.5); WHITE BLOOD COUNT 14.4 10^3/ul (4.5-11.0)
[2017-08-26 06:41] LABS: ALB/GLOB RATIO 0.8 (1.1-1.8); BILIRUBIN,TOTAL 0.6 mg/dL (0.2-1.3); CALCIUM 9.1 mg/dL (8.4-10.5); POTASSIUM 4.5 mmol/L (3.6-5.0); TOTAL PROTEIN 7.7 g/dL (5.8-8.3)
--- NOTE | 2017-08-26 07:55 | PN ---
DATE: 08/26/2017 SUBJECTIVE: The patient is in bed, in no acute distress and nontoxic. PHYSICAL EXAMINATION: VITAL SIGNS: On exam, the patient's temperature is 97, blood pressure is 100/50, respiratory rate of 18, and heart rate of 100. HEENT: Examination of HEENT is unremarkable. NECK: Supple. LUNGS: Have decreased breath sounds. HEART: Normal S1 and S2. GASTROINTESTINAL: Abdominal examination is soft and nontender. LABORATORY DATA: Examination reveals the patient's white count is 14,400, hemoglobin of 12, and platelets of 363. Coagulation is noted. Chemistries reveals the BUN of 77 and creatinine of 2.7. Urinalysis is noted and microbiology reveals there is Klebsiella pneumonia that is pansensitive in the urine. The blood cultures are all negative. The Klebsiella pneumonia is sensitive to Cipro. DIAGNOSTIC DATA: Review of the lower extremity ultrasound, no evidence of DVT. ASSESSMENT AND PLAN: A 36-year-old male with morbid obesity, body mass index of 55 with pancreatitis, hypertension, alcoholic cardiomyopathy, diverticulitis, kidney stones, and tobacco use who was admitted with severe sepsis with obstructive renal stone, status post cystoscopy with a pigtail stent placement. The patient with Klebsiella which is pansensitive urine as a source of the severe sepsis and with acute kidney injury on top of chronic kidney injury on meropenem. We will discontinue the meropenem, today is day number 3 of antibiotics. We will use ceftriaxone, may be able to switch to p.o. Cipro upon discharge. Checking the EKG from the 08/22/2017 reveals a QTC of 379 which is safe to use quinolones. We will follow with you. Roland Maria MD
[2017-08-26] MEDS: Amylase/Lipase/Protease 5,000 U ECC PO SCH ×4 (08:00→16:39)
--- NOTE | 2017-08-26 08:23 | PN ---
DATE: 08/25/2017 SUBJECTIVE: This patient was seen and evaluated earlier today. The patient is now tolerating the diet. Still complaining of some epigastric discomfort. PHYSICAL EXAMINATION VITAL SIGNS: Temperature is 97, pulse 132 and blood pressure 120/70. HEENT: Atraumatic. Anicteric. NECK: Supple. HEART: S1 and S2 heard. LUNGS: Bilateral air entry present. There was a crackle present at the base. ABDOMEN: Distended softly, tenderness present in the epigastric area. No rebound or guarding. EXTREMITIES: Bilateral pitting pedal edema present. NEUROLOGIC: Alert and oriented. Moves all extremities. LABORATORY DATA: Hemoglobin 11, hematocrit 33.5, WBC 17.5 and platelets 256. BUN 64, creatinine 3.4. ASSESSMENT AND PLAN: This 36-year-old patient with congestive heart failure, morbid obesity, chronic kidney disease, has atrial fibrillation with rapid ventricular response, transferred to the unit. The patient has been started on Eliquis. The patient has been on Eliquis now. Other past medical history: 1. History of chronic pancreatitis. We will restart the enzyme supplements. 2. Gastroesophageal reflux disease and gastritis. The patient has been on only on Pepcid at home. 3. The patient has chronic pancreatitis. RECOMMENDATIONS: 1. Continue Eliquis. 2. Close followup of the hemoglobin and hematocrit. 3. Acute kidney injury at the top of chronic kidney disease. 4. Chronic pancreatitis, exocrine pancreatic insufficiency on enzyme supplements, continue with that. The patient is also being followed at the [facility] for chronic pancreatitis. Repeat CT scan was reviewed. Thank you very much for allowing me to participate in the care of the patient. Souleymane Choe MD
[2017-08-26] MEDS ORDERED: Amylase/Lipase/Protease 5,000 U ECC PO ONE (08:30)
--- NOTE | 2017-08-26 08:42 | PN ---
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 Still complaints of some pain in the left flank, but it has improved dramatically. No increasing shortness of breath. No cough. No congestion. No nausea or vomiting. No fever or chills at this time. He noted on monitor, he is still mildly tachycardiac with heart rate of 108. PHYSICAL EXAMINATION: VITAL SIGNS: Note that his temperature is 97, pulse is 108, respirations are 22, and blood pressure is 115/68. HEENT: Head is atraumatic and normocephalic. Eyes reactive to light. Ears, nose, and throat seemed to be within normal limits. NECK: Supple. No JVD. No thyroid enlargement. No lymph nodes. HEART: Regular rate and rhythm. Normal S1 and S2, but tachycardiac. LUNGS: Reveal decreased breath sounds at the bases. No significant rales or rhonchi. ABDOMEN: Obese, but soft. There is some discomfort to palpitation. Positive bowel sounds. GENITALIA AND RECTAL: Deferred. MUSCULOSKELETAL: No joint deformities. EXTREMITIES: Reveal positive lower extremity edema. NEUROLOGIC: He seems to be grossly intact. LABORATORY DATA: As far as his laboratory is concerned, his white count is 14.4, hemoglobin is 12.0, hematocrit is 36.8 with platelets of 363,000. His sodium is 143, potassium 4.5, chloride 99, CO2 of 24 with a BUN of 77, creatinine of 2.7, and glucose of 123. The patient's lower extremity Doppler reveals no evidence of DVT. IMPRESSION: As far as my impression, this patient has left nephrolithiasis with renal colic, status post stent placement. Has a history of congestive of heart failure, morbid obesity, possible obstructive sleep apnea with recurrent pancreatitis. Has history of atrial flutter as well and has renal insufficiency. PLAN: As far as our plan, we will continue with the analgesic. The patient has been getting pain meds of Dilaudid as well. He will continue to be followed by Cardiology. The patient also is getting Rocephin as an antibiotics and Pepcid as well as pancreas. We will continue his pain meds of Dilaudid and his Coreg as well. We will continue to follow closely and treat aggressively along with the other consultants and the primary care doctor. Ta Graham MD
[2017-08-26] MEDS: cefTRIAXone 1 gm 1 GM/100 ML BAG IVPB SCH (09:38)
--- NOTE | 2017-08-26 11:30 | PN ---
DATE: 08/26/2017 SUBJECTIVE: The patient is improving. His creatinine is now down to 2.7, BUN is 77. His white count is now down to 14,000 from 17,500 yesterday. He is tolerating the stent nicely. His urine output was 940 mL. He is afebrile. The urine culture on admission came back Klebsiella. The patient has not had his multi-view of his abdomen done yet. He said it will be done today and the purpose of this is to see if the stones are visible. If they are not seen then I will discuss with Renal the possibility of alkalizing his urine, but the problems is not giving him any extra potassium or sodium given his cardiac and renal issues unless his renal function comes back to baseline. Juan José Lange MD
[2017-08-26] MEDS ORDERED: Digoxin 500 mcg/2ml (0.5 mg/2ml) Inj IVP ONE (12:35)
--- NOTE | 2017-08-26 13:46 | PN ---
DATE: SUBJECTIVE: The patient still has rapid atrial fibrillation, some degree of hematuria was reported from yesterday, but this morning the patient has no reported hematuria. He denies any chest pain. He is being bothered by his leg swelling. He has adequate dialysis. PHYSICAL EXAMINATION: VITAL SIGNS: Blood pressure 99/40, heart rate 121, and temperature 97.1. HEENT: Normocephalic. CHEST: Diminished breath sounds over the bases. HEART: S1 and S2. Regular and distant. ABDOMEN: Soft. EXTREMITIES: 2+ pitting edema. LABORATORY DATA: Hemoglobin and hematocrit 12 and 36.8, white count 14.4, and platelet count 363,000. Today's BUN and creatinine are 77 and 2.7, glucose 123. The rest of SMA-7 is within normal limits. Lower extremity ultrasound performed yesterday revealed no sonographic evidence of DVT. ASSESSMENT: 1. Rapid atrial fibrillation/atrial flutter. 2. Congestive heart failure. 3. Morbid obesity. 4. Status post ureteric stent for ureterovesical junction stone with subsequent hydronephrosis of the left side. 5. Improving renal insufficiency. RECOMMENDATIONS: Case was discussed with Dr. Santiago, the primary physician, as well as Dr. Lange, the urologist and the patient can be maintained on Coreg 25 mg twice a day and Eliquis 2.5 mg twice a day will be started today. Lasix will be reduced to 40 mg intravenously twice a day and continue IV Rocephin at 1 g daily, and Zaroxolyn 5 mg daily. I will administer 1 dose of digoxin 0.25 mg IV push now and continue with 0.25 mg orally daily. Paul Driver MD
[2017-08-26 15:06] VITALS: PULSE 95
--- NOTE | 2017-08-26 16:12 | PN ---
DATE: SUBJECTIVE: The patient is 36-year-old seen and examined. He stated his left flank pain is little better, still short of breath. PHYSICAL EXAMINATION: GENERAL: He is afebrile. VITAL SIGNS: Pulse 97, respirations 22, blood pressure 129/68. LUNGS: Bilateral fair airflow. No rhonchi or crackles. HEART: S1 and S2 audible. ABDOMEN: Soft, obese, nontender. No rebound. No guarding. NEUROLOGIC: The patient is awake, alert, oriented, and communicative. EXTREMITIES: Bilateral legs +1 edema. LABORATORY DATA: WBC is 14.4, hemoglobin 12, hematocrit 36, and platelet of 363. Chemistry: Sodium 134, potassium 4.5, chloride 99, CO2 24, BUN 77, creatinine 2.7, blood sugar is 123. His urine positive for Klebsiella pneumoniae. ASSESSMENT AND PLAN: 1. Left renal colic. 2. Left hydronephrosis, status post stent placement. 3. Klebsiella urinary tract infection. 4. Congestive heart failure. 5. Nonischemic cardiomyopathy. 6. Recurrent pancreatitis. PLAN: Currently the patient is on Coreg. He is getting Eliquis; although, he is in sinus rhythm now. He has been started on digoxin. We will cut down his Lasix to 40 twice a day. He is on Rocephin and metolazone has been on hold. We will monitor his input and output. Follow up his electrolyte and CBC in a.m. Sammy Santiago MD
--- NOTE | 2017-08-26 17:09 | RAD ---
HISTORY: SOB COMPARISON: 08/22/2017 FINDINGS: LUNGS: There is a diffuse alveolar infiltrate. This is a new finding. This is probably secondary to CHF. There is also vascular congestion PLEURA: No significant pleural effusion identified, no pneumothorax apparent. CARDIOVASCULAR: Cardiomegaly and vascular congestion OSSEOUS STRUCTURES: No significant abnormalities. VISUALIZED UPPER ABDOMEN: Normal. OTHER FINDINGS: None. IMPRESSION: There is a diffuse alveolar infiltrate. This is a new finding. This is probably secondary to CHF. There is also vascular congestion
--- NOTE | 2017-08-26 22:10 | PN ---
DATE: 08/26/2017 SUBJECTIVE: The patient is seen, lying in bed in the ICU. He is complaining of pain in the abdomen. He is complaining of nausea. He is complaining of back pain. He is complaining of some shortness of breath. Denies any chest pain. Denies any palpitation. PHYSICAL EXAMINATION: GENERAL: Obese, middle-aged male, lying in bed. VITAL SIGNS: Blood pressure 129/68, heart rate 103, respiratory rate 23, T-max is 97.8. HEENT: Normocephalic and atraumatic. Positive pallor. NECK: Supple. No JVD. LUNGS: Bilateral equal air entry, bilateral equal expansion. No rales. CARDIAC: S1 and S2, regular rate and rhythm. No murmurs. No rubs. ABDOMEN: Obese, distended, soft, nontender, and bowel sounds present. EXTREMITIES: 1+ pitting edema of the lower extremities. INTAKE AND OUTPUT: 1580/ . LABORATORY DATA: WBC 14.4, hemoglobin 12, hematocrit 37, and platelets 363. Sodium 134, potassium 4.5, chloride 99, CO2 of 24, BUN 77, creatinine 2.7, glucose 123, calcium 9.1, AST 21, ALT 33, and albumin 3.4. Digoxin less than 0.4. Urine culture Klebsiella. MEDICATIONS: Coreg 25 b.i.d., Dilaudid 1.5 q.4 hours, Eliquis 2.5 b.i.d., Lasix 40 IV b.i.d. on hold, Pancrease, Pepcid, guaifenesin, and ceftriaxone 1 g daily. ASSESSMENT: 1. Acute kidney injury, superimposed on chronic kidney disease stage III. 2. Left obstructive pyelonephritis. 3. Status post left ureteral stent. 4. Recurrent pancreatitis. 5. Morbid obesity. 6. History of urinary retention. 7. Severe hypertension. 8. Sepsis. PLAN: 1. Continue IV fluid resuscitation. 2. Continue to hold Lasix. 3. Continue antibiotics as per ID recommendations. 4. Monitor urine output closely. 5. Monitor daily electrolytes. 6. Avoid nephrotoxic. 7. Follow up abdominal ultrasound/abdominal imaging. 8. Case discussed with ICU services. 9. Case discussed with Dr. Santiago. More than 35 minutes spent in the care of this critically ill patient. Angelica Don MD [facility] # [id number]
--- NOTE | 2017-08-27 01:28 | PN ---
DATE: 08/26/2017 SUBJECTIVE: This patient was seen and evaluated earlier today. The patient is tolerating the diet and he was very concerned about the pancreatic enzyme supplement. He was taking about 15,000 units before. Since his p.o. intake remains little bit on the lower side, it was cut down to 10,000 unit supply. PHYSICAL EXAMINATION: VITAL SIGNS: The patient remains afebrile. Blood pressure is 129/68, pulse 97, respirations 18. HEENT: Atraumatic, anicteric. NECK: Supple. HEART: S1 and S2 heard. LUNGS: Bilateral air entry present, slightly reduced at the base. ABDOMEN: Soft. Mild tenderness present at the epigastric area. EXTREMITIES: Bilateral edema present. NEUROLOGIC: Alert and oriented. Moves all extremities. LABORATORY DATA: Hemoglobin is 12, hematocrit 36, WBC 14.4, and platelets 363. IMPRESSION: 1. This 36-year-old patient with congestive heart failure, cardiomyopathy, hypertension, dyslipidemia, history of chronic pancreatitis admitted with shortness of breath. 2. The patient was in acute on chronic injury, chronic pancreatitis, gastroesophageal reflux disease, peptic ulcer disease before. We would recommend one to continue the Eliquis, the patient has been started on. The patient did developed atrial fibrillation with rapid ventricular response during this time. On Eliquis, we need to continue to follow closely hemoglobin and hematocrit. Acute kidney injury on the background of chronic kidney disease. 3. Chronic pancreatitis. The patient is being followed at the [facility]. The patient is on enzyme supplement. The patient was on 15,000, it is cut down to 10,000. We will slowly increase the dosage as his p.o. intake improves. I did discuss with the patient at length regarding this. The patient is agreeable. Thank you very much for allowing us to participate in the care of the patient. Souleymane Choe MD
[2017-08-27] MEDS: HYDROmorphone 2 mg/ml ISec IVP PRN ×6 (01:58→22:03)
[2017-08-27 06:14] LABS: BASO # 0.01 K/mm3 (0.0-2.0); BASO % 0.1 % (0.0-3.0); EOS # 0.1 (0.0-0.7); EOS % 0.6 % (1.5-5.0); GRAN # 10.84 (1.4-6.5); GRAN % 74.8 % (50.0-68.0); HEMATOCRIT 37.5 % (42.0-52.0); LYMPH # 2.1 (1.2-3.4); LYMPH % 14.2 % (22.0-35.0); MEAN CELL VOLUME 95.7 fl (80.0-105.0); MEAN CORPUSCULAR HEMOGLOBIN 31.6 pg (25.0-35.0); MEAN CORPUSCULAR HGB CONC 33.1 g/dl (31.0-37.0); MEAN PLATELET VOLUME 10.4 fl (7.0-11.0); MONO # 1.5 (0.1-0.6); MONO % 10.3 % (1.0-6.0); RED CELL DISTRIBUTION WIDTH 14.2 % (11.5-14.5); WHITE BLOOD COUNT 14.5 10^3/ul (4.5-11.0)
[2017-08-27 06:50] LABS: ALB/GLOB RATIO 0.8 (1.1-1.8); BILIRUBIN,TOTAL 0.6 mg/dL (0.2-1.3); CALCIUM 9.4 mg/dL (8.4-10.5); POTASSIUM 4.8 mmol/L (3.6-5.0); TOTAL PROTEIN 7.6 g/dL (5.8-8.3)
[2017-08-27] MEDS: Amylase/Lipase/Protease 5,000 U ECC PO SCH ×3 (07:58→17:43)
--- NOTE | 2017-08-27 08:33 | PN ---
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 The patient's heart rate is stable on digoxin and no complaints of fever, chills, nausea or vomiting. PHYSICAL EXAMINATION: VITAL SIGNS: His temperature is 97.7, his pulse is 95, respirations are 24, and BP is 136/64. SKIN: Warm and dry. HEENT: Head is atraumatic and normocephalic. Eyes: Reactive to light. Ears, nose, and throat seemed to be within normal limits. NECK: Supple. No JVD. No thyroid enlargement. No lymph nodes. HEART: Regular rate and rhythm. Normal S1 and S2. LUNGS: Reveal decreased breath sounds at the bases. ABDOMEN: Soft, obese. Positive bowel sounds. GENITALIA AND RECTAL: Deferred. MUSCULOSKELETAL: No joint deformities. EXTREMITIES: Reveal positive lower extremity edema. NEUROLOGIC: He seemed to be grossly intact. LABORATORY DATA: As far as his laboratory is concerned, his white count is 14.5, hemoglobin is 12.4, and hematocrit is 37.5, with platelets of 478,000. His sodium is 136, potassium is 4.8, chloride is 101, CO2 of 28, with BUN of 66, creatinine of 2.0, and glucose of 119. IMPRESSION: The patient has left nephrolithiasis with renal colic. He is status post stent placement. He has a history of congestive heart failure, morbid obesity, and possible obstructive sleep apnea. The patient does have recurrent pancreatitis and a history of atrial flutter/fibrillation. There is a component of renal insufficiency as well. PLAN: We will continue with the analgesics. The patient is getting pain medications p.r.n. and we will also follow with Cardiology as far as cardiac and heart rate is concerned. The patient is on antibiotics of Rocephin and Pepcid and Pancrease. We will continue to treat aggressively along with the other consultants and the primary care doctor. Ta Graham MD
[2017-08-27] MEDS: cefTRIAXone 1 gm 1 GM/100 ML BAG IVPB SCH (09:56)
[2017-08-27] MEDS ORDERED: Amylase/Lipase/Protease 5,000 U ECC PO SCH ×3 (11:17→12:12)
--- NOTE | 2017-08-27 13:18 | PN ---
DATE: SUBJECTIVE: The patient is a 36-year-old seen and examined, lying in bed. He states he feels a lot better. Shortness of breath is better. Flank pain is better, but not gone. PHYSICAL EXAMINATION: VITAL SIGNS: Blood pressure is 153/87. LUNGS: Bilateral good air flow. No rhonchi or crackles. NEUROLOGIC: He is awake, alert, oriented, and communicative. EXTREMITIES: Bilateral legs +2 edema. LABORATORY DATA: WBC 14.5, hemoglobin 12.4, hematocrit 37.5, and platelets 478. Chemistry; sodium 136, potassium 4.8, chloride 101, CO2 28, BUN 66, creatinine 2.0, and blood sugar of 119. ASSESSMENT: 1. Status post renal colic. 2. Status post ureteral stent placement. 3. Improving acute renal failure. 4. Recurrent pancreatitis. 5. Congestive heart failure. 6. Nonischemic cardiomyopathy. 7. Hyperlipidemia. 8. Brief episode of atrial fibrillation. 9. Status post cholecystectomy. PLAN: Currently, the patient is on carvedilol. He is getting Dilaudid. He has been started on Eliquis. He is on digoxin. His Lasix is on hold. The patient is getting Rocephin for Klebsiella UTI. We will follow up his CBC and CMP in a.m. Sammy Santiago MD
--- NOTE | 2017-08-27 15:55 | PN ---
DATE: SUBJECTIVE: This patient was see and evaluated earlier today. The patient had an episode of loose bowel movements. Tolerating the diet. He is concerned about taking only two pancreatic enzyme supplements with meals. At the present time, he is on 10,000 units of lipase with meals. He said his usual dose is about 15,000, he is very concerned about it. PHYSICAL EXAMINATION: VITAL SIGNS: Temperature afebrile, blood pressure is 153/87, respirations are 25, and pulse rate of 106. HEENT: Atraumatic, anicteric. NECK: Supple. HEART: S1 and S2 heard. LUNGS: Slightly reduced in the base air entry. ABDOMEN: Softly distended. There is tenderness present in the epigastric area. EXTREMITIES: Bilateral pitting pedal edema present. NEUROLOGIC: Alert and oriented. Moves all the extremities. LABORATORY DATA: WBC count 14.5, hemoglobin 12.5, hematocrit 37.5, and platelets 478. The renal function is slowly improving. BUN of 66 and creatinine of 2.0. LFTs remains normal. IMPRESSION: This is a 36-year-old patient with past medical history of chronic pancreatitis, history of diverticulitis in the past, history of chronic gastroesophageal reflux disease, and peptic ulcer disease, now admitted with acute kidney injury on the top of chronic kidney disease, cardiomyopathy, and congestive heart failure, has developed also atrial fibrillation with rapid ventricular response. The patient has been on Eliquis now. The patient has left hydronephrosis status post left ureteral stent placement. Renal function is slowly improving. RECOMMENDATIONS: 1. Followup of the hemoglobin and hematocrit. 2. Continue the pancreatic enzyme supplement. 3. Continue to closely follow up with care and suggest further management based on the clinical course. Souleymane Choe MD
--- NOTE | 2017-08-27 16:54 | PN ---
DATE: SUBJECTIVE: The patient denied any chest pain. His left flank pain has improved. He has adequate urinary output. He is currently in atrial fibrillation with controlled ventricular response. PHYSICAL EXAMINATION: VITAL SIGNS: Blood pressure 153/87, heart rate 106, respirations 24, and temperature 97.7. HEENT: Normocephalic. CHEST: Diminished breath sounds over the bases. HEART: S1 and S2 regular. ABDOMEN: Soft. EXTREMITIES: 1+ pitting edema. LABORATORY DATA: Hemoglobin and hematocrit 12.4 and 37.5, white count 14.5, and platelet count 478,000. SMA-7 is within normal limits except for glucose 119; BUN and creatinine are 66 and 2.0, which is significant improvement compared to 2 days ago. ASSESSMENT: 1. Dilated cardiomyopathy. 2. Chronic atrial fibrillation. 3. Status post ureteric stent for left ureterovesical junction stone and acute hydronephrosis. 4. Morbid obesity. 5. Improving renal insufficiency. RECOMMENDATIONS: Continue Coreg 25 mg twice a day, Eliquis 2.5 mg twice a day, Lasix 20 mg intravenously twice a day, and Rocephin 1 g intravenously daily. The patient can be transferred to Telemetry. Paul Driver MD
[2017-08-28] MEDS: HYDROmorphone 2 mg/ml ISec IVP PRN ×6 (02:05→22:19)
[2017-08-28 07:56] LABS: ALB/GLOB RATIO 0.8 (1.1-1.8); BILIRUBIN,TOTAL 0.6 mg/dL (0.2-1.3); CALCIUM 9.3 mg/dL (8.4-10.5); POTASSIUM 4.3 mmol/L (3.6-5.0); TOTAL PROTEIN 7.7 g/dL (5.8-8.3)
[2017-08-28] MEDS: Amylase/Lipase/Protease 5,000 U ECC PO SCH ×3 (08:36→17:48)
--- NOTE | 2017-08-28 09:26 | PN ---
DATE: 08/27/2017 SUBJECTIVE: The patient is seen in room number 128, bed 7. No fevers and no chills. Uneventful night. PHYSICAL EXAMINATION: VITAL SIGNS: Temperature is 97, blood pressure is 130/60, respiratory rate of 24, and heart rate of 94. HEENT: Examination of HEENT is unremarkable. NECK: Supple. LUNGS: Have decreased breath sounds. HEART: Normal S1 and S2. GASTROINTESTINAL: Abdominal examination is soft and nontender. LABORATORY DATA: Examination reveals a white count is 14,500, hemoglobin of 12, and platelets of 478. Chemistries reveals a BUN of 66 and creatinine of 2.0. Urinalysis is noted and microbiology reveals pansensitive Klebsiella pneumoniae in the urine and sensitive to Cipro. DIAGNOSTIC DATA: The patient's EKG reveals a QTC of 379. MEDICATIONS: Review of orders reveals the patient to be on ceftriaxone. ASSESSMENT AND PLAN: This is a 36-year-old male, morbid obese, body mass index of 55 and pancreatitis, hypertension, alcoholic cardiomyopathy, diverticulitis, kidney stones, tobacco use and severe sepsis with obstructive renal stone, status post cystoscopy and pigtail stent placement. The patient with Klebsiella which is pansensitive in urine as the source with severe sepsis, acute kidney injury on top of chronic kidney injury. Currently day number 4 of antibiotics on ceftriaxone, able to switch to p.o. Cipro and to complete 10 to 14 days of antibiotics. The patient tolerating antibiotics well at this time Roland Maria MD
--- NOTE | 2017-08-28 09:30 | PN ---
DATE: 08/28/2017 The patient's creatinine continues to drop, it is now 1.7 with a BUN of 47. His white count is still 14,000. Follow up urine cultures are no growth as are blood cultures. He still has not had the multiview that I ordered. I will order it again. Juan José Lange MD
[2017-08-28] MEDS: cefTRIAXone 1 gm 1 GM/100 ML BAG IVPB SCH (10:49)
--- NOTE | 2017-08-28 12:51 | CP.PCM.PN ---
Subjective - Date & Time of Evaluation Date of Evaluation: 08/28/17 Time of Evaluation: 10:55 - Subjective Subjective: Patient is resting comfortably in bed, no fevers overnight, not in distress. Objective - Vital Signs/Intake and Output Vital Signs (last 24 hours): Temp Pulse Resp BP Pulse Ox 97.6 F 93 H 20 121/75 95 08/28/17 06:00 08/28/17 06:00 08/28/17 06:00 08/28/17 06:00 08/28/17 06:00 Intake and Output: 08/28/17 08/28/17 06:59 18:59 Intake Total 480 Balance 480 - Medications Medications: Current Medications Amylase (Pancrease 29191 U-5000 U-27214 U) 15,000 u PO AC [facility] Last Admin: 08/28/17 08:36 Dose: 15,000 u Apixaban (Eliquis) 2.5 mg PO BID [facility] PRN Reason: Protocol Last Admin: 08/27/17 17:44 Dose: 2.5 mg Carvedilol (Coreg) 25 mg PO BID [facility] Last Admin: 08/27/17 17:44 Dose: 25 mg Famotidine (Pepcid) 20 mg PO DAILY [facility] Last Admin: 08/27/17 09:57 Dose: 20 mg Furosemide (Lasix) 40 mg IV BID [facility] Guaifenesin (Robitussin) 200 mg PO Q4H PRN PRN Reason: Cough and congestion Last Admin: 08/22/17 20:54 Dose: 200 mg Hydromorphone HCl (Dilaudid) 1.5 mg IVP Q4H PRN PRN Reason: Pain, moderate (4-7) Last Admin: 08/28/17 05:49 Dose: 1.5 mg Ceftriaxone Sodium (Rocephin 1 Gram Ivpb) 1 gm in 100 mls @ 100 mls/hr IVPB DAILY [facility] PRN Reason: Protocol Stop: 09/04/17 10:01 Last Admin: 08/27/17 09:56 Dose: 100 mls/hr - Labs Labs: 08/27/17 05:30 08/28/17 07:20 PT 13.0 SECONDS (9.4-12.5) H 08/22/17 14:57 INR 1.19 (0.93-1.08) H 08/22/17 14:57 APTT 34.0 Seconds (25.1-36.5) 08/22/17 14:57 - Constitutional Appears: Non-toxic - Head Exam Head Exam: NORMAL INSPECTION - ENT Exam ENT Exam: Mucous Membranes Moist - Neck Exam Neck Exam: absent: Lymphadenopathy, Meningismus - Respiratory Exam Respiratory Exam: Decreased Breath Sounds - Cardiovascular Exam Cardiovascular Exam: +S1, +S2 - GI/Abdominal Exam GI & Abdominal Exam: Soft. absent: Tenderness Assessment and Plan - Assessment and Plan (Free Text) Plan: Assessment Severe sepsis with probable left sided pyelonephritis with obstructing left ureteral calculus S/P cystoscopy, placement of left pigtail stent POD #5 morbid obesity with BMI 55 HTN alcoholic cardiomyopathy history of pancreatitis history of kidney stones Plan Continue Rocephin day 5 - can switch to PO Ciprofloxacin when ready for discharge to complete the 10-14 day course should follow up with Urology as an outpatient
--- NOTE | 2017-08-28 13:33 | PN ---
DATE: 08/28/2017 REASON FOR CONSULTATION: Congestive heart failure, renal failure, and atrial fibrillation. SUBJECTIVE: The patient denies chest pain or palpitation, but he is still complaint shortness of breath with minimal exertion. PHYSICAL EXAMINATION: VITAL SIGNS: Blood pressure of 121/75, respirations of 20, pulse of above 93, and temperature of 97.6. HEENT: Head is normocephalic. Eyes; pupils are normal. Conjunctivae are slightly pale. NECK: JVP is low. Carotids are equal. THORAX: AP diameter normal. LUNGS: No significant rales. CARDIOVASCULAR: S1 and S2. ABDOMEN: Protuberant. EXTREMITIES: 1+ edema bilateral. No clubbing and no cyanosis. LABORATORY DATA: WBC of 14.5, hemoglobin of 12.4, hematocrit of 37.5, and platelets of 478. Sodium of 135, potassium of 4.3, BUN of 47, and creatinine of 1.7. AST and ALT are normal. Total protein and albumin are normal. DIAGNOSES: 1. Dilated cardiomyopathy. 2. Chronic atrial fibrillation. 3. Renal failure. 4. Status post stent insertion at left ureterovesical junction stone with acute hydronephrosis, morbid obesity, and atrial fibrillation with rapid rate, but now rate is controlled. PLAN: The patient is on Carvedilol 25 b.i.d. and Eliquis 2.5 b.i.d. Since he is complaining shortness of breath with minimal exertion, we will start Lasix 20 mg b.i.d. The patient also on Rocephin 1 g IV daily and Pepcid 20 mg p.o. daily. We will follow. Shayna Jay MD
--- NOTE | 2017-08-28 14:05 | RAD ---
PROCEDURE: Fluoroscopy up to 1 hour HISTORY: STENT INSERTION (LEFT) COMPARISON: TECHNIQUE: Fluoroscopy was provided in the operating room. 73.9 seconds were used. Six images were submitted FINDINGS: The study shows placement of a left ureteral stent IMPRESSION: As above
--- NOTE | 2017-08-28 21:19 | PN ---
DATE: SUBJECTIVE: The patient is 36-year-old seen and examined. Doing little better. Still has flank pain, complain of short of breath, complain of feeling tired on walking, has bilateral leg +1 edema. PHYSICAL EXAMINATION VITAL SIGNS: He is afebrile, pulse 92, respirations 20, and blood pressure 111/68. LUNGS: Bilateral fair airflow. Decreased at bases. HEART: S1 and S2 audible. ABDOMEN: Soft, obese, and nontender. No rebound. No guarding. NEUROLOGIC: The patient is awake, alert, oriented, communicative. LABORATORY DATA: WBC is 14.5, hemoglobin 12.4, hematocrit 37.5, platelet of 478. Chemistries; sodium 135, potassium 4.3, chloride 102, CO2 of 25, BUN 47, creatinine 1.7, blood sugar of 119. Urine positive for Klebsiella. ASSESSMENT: 1. Left renal colic. 2. Status post left ureteral stent placement by . 3. Klebsiella urinary tract infection. 4. Dilated cardiomyopathy. 5. Atrial fibrillation, acute. 6. Renal insufficiency improving. 7. Exertional dyspnea. 8. Morbid obesity. 9. Recurrent pancreatitis. 10. Chronic anemia. PLAN: We will continue the patient on carvedilol and Eliquis. He has been started on Lasix again 40 mg a day. He is on Eliquis. Continue Rocephin. We will follow up the patient in a.m. Sammy Santiago MD
--- NOTE | 2017-08-29 00:30 | PN ---
DATE: 08/28/2017 SUBJECTIVE: The patient was seen and evaluated earlier today. The patient still complains of the swelling of body. He is tolerating the diet. PHYSICAL EXAMINATION VITAL SIGNS: Temperature 98.5, pulse 91, and blood pressure is 111/68. HEENT: Atraumatic and anicteric. NECK: Supple. HEART: S1 and S2 regular. LUNGS: Bilateral air entry present, reduced at the base. ABDOMEN: Softly distended. There was mild tenderness present in the epigastric area. EXTREMITIES: Bilateral pitting pedal edema present. LABORATORY DATA: Hemoglobin 12.4, hematocrit 37.5, WBC 14.5, and platelets 478. Chemistry: BUN 47 and creatinine 1.7. IMPRESSION: This 36-year-old patient with past medical history of chronic pancreatitis, diverticulitis in the past, history of gastroesophageal reflux disease, now admitted with worsening renal function, has left hydronephrosis, status post stent placement. RECOMMENDATIONS: 1. Chronic kidney disease, admitted with acute kidney injury, status post cystoscopy and ureteral stent placement. The renal function is improving. The patient is on pancreatic enzyme supplement. Protonix has been changed to Pepcid. The patient has history of paroxysmal atrial fibrillation, presently on Eliquis. Ceftriaxone, continue that as per Infectious Disease. Thank you very much for allowing us to participate in the care of the patient. Souleymane Choe MD
--- NOTE | 2017-08-29 02:11 | PN ---
DATE: 08/28/2017 SUBJECTIVE: The patient is seen lying in bed. He is complaining of pain. He complains of shortness of breath. He complains of dyspnea on exertion. PHYSICAL EXAMINATION GENERAL: Obese middle-aged male lying in bed. VITAL SIGNS: Blood pressure 111/68, heart rate 89, respiratory rate 20 and temperature 98.5. HEENT: Normocephalic, atraumatic, positive pallor. NECK: Supple, no JVD. LUNGS: Bilateral equal entry, bilateral rhonchi, no rales. CARDIAC: S1 and S2, regular rate and rhythm, no murmur, no rub. ABDOMEN: Obese, distended, positive tenderness in the left flank region, bowel sounds present. EXTREMITIES: 2+ pitting edema of the lower extremities. INTAKE AND OUTPUT: 1020/not charted. LABORATORY DATA: WBC 14.5, hemoglobin 12.4, hematocrit 38, platelets 478. Sodium 135, potassium 4.3, chloride of 102, CO2 of 25, BUN 47, creatinine 1.7, glucose 119, calcium 9.3, albumin 3.4, corrected calcium is 9.9. Urine culture, no growth. CURRENT MEDICATIONS: Coreg 25 b.i.d., Dilaudid, Eliquis, Lasix 20 IV push b.i.d., amylase, Pepcid, guaifenesin and ceftriaxone. ASSESSMENT 1. Resolving acute kidney injury. 2. Obstructive uropathy/pyelonephritis/status post stent placement. 3. Severe hypertension. 4. Hypertensive heart disease. 5. Underlying chronic kidney disease stage III. 6. Morbid obesity. 7. Recurrent pancreatitis. PLAN 1. Agree with Lasix. 2. Keep O's greater than I's. 3. Continue ceftriaxone, okay to increase dose to 2 g daily if indicated. Angelica Don MD
[2017-08-29] MEDS: HYDROmorphone 2 mg/ml ISec IVP PRN ×6 (02:28→23:27)
[2017-08-29 07:24] LABS: ALB/GLOB RATIO 0.8 (1.1-1.8); BILIRUBIN,TOTAL 0.8 mg/dL (0.2-1.3); CALCIUM 9.4 mg/dL (8.4-10.5); POTASSIUM 4.3 mmol/L (3.6-5.0); TOTAL PROTEIN 7.8 g/dL (5.8-8.3)
[2017-08-29] MEDS: Amylase/Lipase/Protease 5,000 U ECC PO SCH ×3 (08:25→17:09)
--- NOTE | 2017-08-29 10:45 | CP.PCM.PN ---
Subjective - Date & Time of Evaluation Date of Evaluation: 08/29/17 Time of Evaluation: 10:05 - Subjective Subjective: Comfortable, no fevers, not in distress. Objective - Vital Signs/Intake and Output Vital Signs (last 24 hours): Temp Pulse Resp BP Pulse Ox 97.6 F 67 19 136/87 94 L 08/29/17 06:00 08/29/17 06:00 08/29/17 06:00 08/29/17 06:00 08/29/17 06:00 Intake and Output: 08/29/17 08/29/17 06:59 18:59 Intake Total 480 Output Total 600 Balance -120 - Medications Medications: Current Medications Amylase (Pancrease 63174 U-5000 U-10137 U) 15,000 u PO AC [facility] Last Admin: 08/29/17 08:25 Dose: 15,000 u Apixaban (Eliquis) 2.5 mg PO BID [facility] PRN Reason: Protocol Last Admin: 08/28/17 17:46 Dose: 2.5 mg Carvedilol (Coreg) 25 mg PO BID [facility] Last Admin: 08/28/17 17:44 Dose: 25 mg Famotidine (Pepcid) 20 mg PO DAILY [facility] Last Admin: 08/28/17 10:48 Dose: 20 mg Furosemide (Lasix) 20 mg IVP BID [facility] Last Admin: 08/28/17 17:46 Dose: 20 mg Guaifenesin (Robitussin) 200 mg PO Q4H PRN PRN Reason: Cough and congestion Last Admin: 08/22/17 20:54 Dose: 200 mg Hydromorphone HCl (Dilaudid) 1.5 mg IVP Q4H PRN PRN Reason: Pain, moderate (4-7) Last Admin: 08/29/17 06:27 Dose: 1.5 mg Ceftriaxone Sodium (Rocephin 1 Gram Ivpb (D5w)) 1 gm in 100 mls @ 100 mls/hr IVPB DAILY [facility] PRN Reason: Protocol Stop: 09/04/17 10:01 - Labs Labs: 08/27/17 05:30 08/29/17 07:00 PT 13.0 SECONDS (9.4-12.5) H 08/22/17 14:57 INR 1.19 (0.93-1.08) H 08/22/17 14:57 APTT 34.0 Seconds (25.1-36.5) 08/22/17 14:57 - Constitutional Appears: Non-toxic - Head Exam Head Exam: NORMAL INSPECTION - Respiratory Exam Respiratory Exam: Decreased Breath Sounds - Cardiovascular Exam Cardiovascular Exam: +S1, +S2 - GI/Abdominal Exam GI & Abdominal Exam: Soft. absent: Tenderness Assessment and Plan - Assessment and Plan (Free Text) Plan: Assessment Severe sepsis with probable left sided pyelonephritis with obstructing left ureteral calculus S/P cystoscopy, placement of left pigtail stent POD #6 morbid obesity with BMI 55 HTN alcoholic cardiomyopathy history of pancreatitis history of kidney stones Plan Continue Rocephin day 6 - can switch to PO Ciprofloxacin when ready for discharge to complete the 10-14 day course should follow up with Urology as an outpatient
[2017-08-29] MEDS: cefTRIAXone 1 gm 1 GM/100 ML BAG IVPB SCH (11:26)
--- NOTE | 2017-08-29 12:17 | PN ---
DATE: 08/29/2017 SUBJECTIVE: The patient's creatinine has come down to 1.6 with a BUN of 38. The patient was told when he leaves the hospital to make an appointment to be seen in our office in 10 days. He was told that the stent could not stay in for more than several months, and I will speak to Renal doubt the possibility of alkalinization of his urine. Juan José Lange MD
--- NOTE | 2017-08-29 12:39 | PN ---
DATE: SUBJECTIVE: The patient is currently seen lying comfortable in bed. He still complaining of lower extremity edema. He has mild abdominal discomfort and pain. He is making urine without difficulty on Lasix therapy. MEDICATIONS: Medication list reviewed. The patient is currently on Coreg, Dilaudid p.r.n., Eliquis, Lasix IV push b.i.d., Pancrease, Pepcid, p.r.n. Robitussin and Rocephin. OBJECTIVE: INTAKE AND OUTPUT: Intake is 480 and output 600. VITAL SIGNS: Blood pressure is 124/70, pulse is 93, temperature is 97.6, and respiratory rate is 19 with a pulse oximetry of 94%. HEENT: Exam shows him to be normocephalic and atraumatic. Conjunctivae are pink. Sclera are nonicteric. NECK: Supple. No neck vein distention. CHEST: Clear to auscultation and percussion. Scattered rhonchi. No rales or wheezing. CARDIAC: Shows a normal S1 and S2 with no audible murmurs, rubs or gallops. ABDOMEN: Obese. Minimal distention. Mild tenderness on palpation diffusely. Bowel sounds are normal. No rebound or guarding. EXTREMITIES: Show 1 to 2+pitting edema of his lower extremities with his legs raised in bed. No cyanosis or clubbing. LABORATORY DATA AND IMAGING STUDIES: CBC: White blood cell count from 08/27/2017 was 14.5 with a hemoglobin of 12.4, and platelet count of 478,000. Chemistries from today normal electrolytes. BUN is down to 38 from a high of 84, his baseline BUN is in the low 20 range. Creatinine is down from a high of 3.4 to 1.6, baseline creatinine is in the 1.3 range. Glucose is 125 and calcium is normal. Liver enzymes are normal. Albumin is 3.4. Microbiology; initial urine culture was positive for Klebsiella and follow-up urine cultures were negative. Blood cultures are negative at 96 hours. ASSESSMENT: 1. Acute renal failure superimposed on chronic kidney disease stage III. This is in the setting of obstructive uropathy left side status post left ureteral stent replacement. 2. Klebsiella urinary tract infection and perhaps impart secondary to obstructive uropathy. The patient is completing a course of IV antibiotic therapy. 3. History of hypertension. Blood pressure control is acceptable on current medical therapy. The patient is on Coreg and diuretic therapy. 4. History of hypertensive heart disease, currently stable. 5. History of morbid obesity. 6. History of recurrent pancreatitis superimposed on chronic pancreatitis. The patient remains on pancreas enzyme therapy. PLAN 1. We will continue diuresing the patient with Lasix. I will increase Lasix to 40 mg twice a day IV push. This will facilitate a larger diuresis and remove the edema for his lower extremity which is debilitating to the patient. 2. Complete course of IV antibiotic therapy. 3. Continued evaluation regarding replacement of his left renal stent. The patient is asking me when he could have the stent removed. Sean Reich MD
--- NOTE | 2017-08-29 13:22 | RAD ---
HISTORY: Left ureteral stone COMPARISON: No prior. FINDINGS: BOWEL: Normal. No obstruction. No free air. BONES: Normal. OTHER FINDINGS: None. IMPRESSION: A left ureteral stent is seen. There is no visible stone. Study limited by body habitus
--- NOTE | 2017-08-29 13:59 | CP.PCM.PN ---
<Дмитрий,Kovil V - Last Filed: 08/30/17 00:04> Objective - Vital Signs/Intake and Output Vital Signs (last 24 hours): Temp Pulse Resp BP Pulse Ox 97.6 F 84 20 128/75 94 L 08/29/17 17:51 08/29/17 22:00 08/29/17 17:51 08/29/17 21:57 08/29/17 06:00 Intake and Output: 08/29/17 08/30/17 18:59 06:59 Intake Total 100 Balance 100 - Medications Medications: Current Medications Amylase (Pancrease 21834 U-5000 U-90693 U) 15,000 u PO AC [facility] Last Admin: 08/29/17 17:09 Dose: 15,000 u Apixaban (Eliquis) 2.5 mg PO BID [facility] PRN Reason: Protocol Last Admin: 08/29/17 17:09 Dose: 2.5 mg Carvedilol (Coreg) 25 mg PO BID [facility] Last Admin: 08/29/17 17:09 Dose: 25 mg Famotidine (Pepcid) 20 mg PO DAILY [facility] Last Admin: 08/29/17 11:08 Dose: 20 mg Furosemide (Lasix) 40 mg IVP Q12 [facility] Last Admin: 08/29/17 21:57 Dose: 40 mg Guaifenesin (Robitussin) 200 mg PO Q4H PRN PRN Reason: Cough and congestion Last Admin: 08/22/17 20:54 Dose: 200 mg Hydromorphone HCl (Dilaudid) 1.5 mg IVP Q4H PRN PRN Reason: Pain, moderate (4-7) Last Admin: 08/29/17 23:27 Dose: 1.5 mg Ceftriaxone Sodium (Rocephin 1 Gram Ivpb (D5w)) 1 gm in 100 mls @ 100 mls/hr IVPB DAILY [facility] PRN Reason: Protocol Stop: 09/04/17 10:01 Last Admin: 08/29/17 11:26 Dose: 100 mls/hr - Labs Labs: 08/27/17 05:30 08/29/17 07:00 PT 13.0 SECONDS (9.4-12.5) H 08/22/17 14:57 INR 1.19 (0.93-1.08) H 08/22/17 14:57 APTT 34.0 Seconds (25.1-36.5) 08/22/17 14:57 Attending/Attestation - Attestation I have personally seen and examined this patient.: Yes I have fully participated in the care of the patient.: Yes I have reviewed all pertinent clinical information, including history, physical exam and plan: Yes Notes (Text): this is an addendum to the GI progress report dictated by Thania Ge APN the patient was seen and evaluated earlier. Abdomen soft mild tenderness present in the epigastric area Extremities edema present Renal function is improving Continue the pancreatic enzyme supplements Thank you very much for allowing us to participate in the care of the patient 08/30/17 00:05 <Thania Ge J - Last Filed: 08/30/17 13:13> Subjective - Date & Time of Evaluation Date of Evaluation: 08/29/17 Time of Evaluation: 10:40 - Subjective Subjective: S&E at bedside, chart reviewed, had 1 BM appear fatty, no bleeding, No N/V, reports abdominal pain, not worse. Urinating with no bleeding or burning, keeping oral intake down. No fever or chills, still gets tired when ambulating. Complains that legs still swollen, LE ext. Us is negative for DVT. Objective - Vital Signs/Intake and Output Vital Signs (last 24 hours): Temp Pulse Resp BP Pulse Ox 97.6 F 93 H 19 124/70 94 L 08/29/17 06:00 08/29/17 11:06 08/29/17 06:00 08/29/17 11:08 08/29/17 06:00 Intake and Output: 08/29/17 08/29/17 06:59 18:59 Intake Total 480 Output Total 600 Balance -120 - Medications Medications: Current Medications Amylase (Pancrease 72806 U-5000 U-83214 U) 15,000 u PO AC [facility] Last Admin: 08/29/17 13:35 Dose: 15,000 u Apixaban (Eliquis) 2.5 mg PO BID [facility] PRN Reason: Protocol Last Admin: 08/29/17 11:08 Dose: 2.5 mg Carvedilol (Coreg) 25 mg PO BID [facility] Last Admin: 08/29/17 11:06 Dose: 25 mg Famotidine (Pepcid) 20 mg PO DAILY [facility] Last Admin: 08/29/17 11:08 Dose: 20 mg Furosemide (Lasix) 40 mg IVP Q12 [facility] Guaifenesin (Robitussin) 200 mg PO Q4H PRN PRN Reason: Cough and congestion Last Admin: 08/22/17 20:54 Dose: 200 mg Hydromorphone HCl (Dilaudid) 1.5 mg IVP Q4H PRN PRN Reason: Pain, moderate (4-7) Last Admin: 08/29/17 10:47 Dose: 1.5 mg Ceftriaxone Sodium (Rocephin 1 Gram Ivpb (D5w)) 1 gm in 100 mls @ 100 mls/hr IVPB DAILY [facility] PRN Reason: Protocol Stop: 09/04/17 10:01 Last Admin: 08/29/17 11:26 Dose: 100 mls/hr - Labs Labs: 08/27/17 05:30 08/29/17 07:00 PT 13.0 SECONDS (9.4-12.5) H 08/22/17 14:57 INR 1.19 (0.93-1.08) H 08/22/17 14:57 APTT 34.0 Seconds (25.1-36.5) 08/22/17 14:57 - Constitutional Appears: No Acute Distress - Eye Exam Eye Exam: Normal appearance. absent: Scleral icterus - ENT Exam ENT Exam: Mucous Membranes Moist - Neck Exam Neck Exam: Normal Inspection - Respiratory Exam Respiratory Exam: NORMAL BREATHING PATTERN. absent: Respiratory Distress - Cardiovascular Exam Cardiovascular Exam: +S1, +S2 - GI/Abdominal Exam GI & Abdominal Exam: Soft, Tenderness (LUQ, no guarding or rebound), Normal Bowel Sounds. absent: Guarding (obese), Rebound - Extremities Exam Extremities Exam: Pedal Edema. absent: Calf Tenderness - Neurological Exam Neurological Exam: Alert, Awake, Oriented x3 Assessment and Plan - Assessment and Plan (Free Text) Assessment: Assessment: Left obstructing ureteral stone, s/p Cystoscopy w left pigtail stent Atrial Fibrillation Dehydration Acute renal failure, improving Recurrent pancreatitis Morbid obesity Hypertension Plan: Continue diet as tolerated continue Pancreatic enzymes Continue Pepcid 20 mg daily Continue IV fluids On ceftriaxone IVPB on Eliquis On Lasix Monitor electrolytes as per renal/urology/cardiology Seen and discussed with Dr. Choe.
--- NOTE | 2017-08-29 14:32 | PN ---
DATE: 08/29/2017 REASON FOR CONSULTATION AND FOLLOWUP: Congestive heart failure, atrial fibrillation. SUBJECTIVE: The patient denies any chest pain or palpitation, but complains of shortness of breath on minimal activity and abdominal pain. OBJECTIVE: GENERAL: Lying in the bed not in apparent distress. VITAL SIGNS: Temperature afebrile, heart rate 97 and blood pressure 124/70. HEENT: PERRLA, intact. NECK: Supple. No carotid bruit or thyromegaly. CHEST: Clear to auscultation. HEART: S1 and S2 regular. ABDOMEN: Soft. EXTREMITIES: Clubbing and cyanosis negative. LABORATORY DATA: Blood workup as follows: WBC 14.5, hemoglobin 12.1, hematocrit 37.5 and platelet count 478. Chemistry shows sodium 135, potassium 4.3, chloride 100, carbon dioxide 26, anion gap of 14, BUN 38 and creatinine 1.6. IMPRESSION: Dilated cardiomyopathy, chronic atrial fibrillation, renal failure, status post stent at uterocervical junction for a stone, acute hydronephrosis and morbid obesity. RECOMMENDATION: Continue Eliquis. Continue Carvedilol. Increase Lasix to 20 mg b.i.d. as blood pressure is tolerated. Monitor electrolytes. Monitor renal function. The patient came in with acute kidney injury with creatinine of 3.5, now is improving. Will repeat blood workup in the morning. We will follow with you. Thank you Dr. Santiago for providing us the opportunity in taking of the patient, Gareth Leblanc. Shayna Thomson MD
[2017-08-30] MEDS: HYDROmorphone 2 mg/ml ISec IVP PRN ×5 (03:29→20:50)
[2017-08-30 07:11] LABS: HEMATOCRIT 34.9 % (42.0-52.0); MEAN CELL VOLUME 96.1 fl (80.0-105.0); MEAN CORPUSCULAR HEMOGLOBIN 31.1 pg (25.0-35.0); MEAN CORPUSCULAR HGB CONC 32.4 g/dl (31.0-37.0); MEAN PLATELET VOLUME 9.5 fl (7.0-11.0); RED CELL DISTRIBUTION WIDTH 14.2 % (11.5-14.5); WHITE BLOOD COUNT 14.7 10^3/ul (4.5-11.0)
[2017-08-30] MEDS: Amylase/Lipase/Protease 5,000 U ECC PO SCH ×3 (07:54→17:22)
[2017-08-30 07:56] LABS: ALB/GLOB RATIO 0.8 (1.1-1.8); BILIRUBIN,TOTAL 0.5 mg/dL (0.2-1.3); CALCIUM 9.4 mg/dL (8.4-10.5); MAGNESIUM 1.8 mg/dL (1.7-2.2); POTASSIUM 4.1 mmol/L (3.6-5.0); TOTAL PROTEIN 7.4 g/dL (5.8-8.3)
--- NOTE | 2017-08-30 08:43 | PN ---
DATE: 08/29/2017 SUBJECTIVE: The patient is a 36-year-old, seen and examined, lying in bed, seem to be comfortable. No nausea, vomiting, diarrhea, eating and tolerating. No abdominal pain. PHYSICAL EXAMINATION VITAL SIGNS: He is afebrile, pulse 66, respirations 20, blood pressure 113/79. HEART: S1 and S2 audible. LUNGS: Bilateral fair airflow. No rhonchi or crackles. ABDOMEN: Soft, nontender with no hepatosplenomegaly. NEUROLOGIC: The patient is awake, alert, oriented, able to communicate. LABORATORY DATA: Chemistry; sodium 135, potassium 4.3, chloride 100, CO2 of 26, BUN 38, creatinine 1.6, blood sugar of 125. ASSESSMENT: 1. Left renal colic, status post ureteric stenting. 2. Hypertension. 3. Nonischemic cardiomyopathy. 4. Recurrent pancreatitis. 5. Morbid obesity. 6. Paroxysmal atrial fibrillation. PLAN: The patient is currently on Coreg, Eliquis, Lasix, and Rocephin. Since, he has developed Klebsiella UTI, he will continue on Rocephin in the next 24 hours and we will discontinue and he will be discharged in a.m. if he remains stable. Sammy Santiago MD
[2017-08-30] MEDS: cefTRIAXone 1 gm 1 GM/100 ML BAG IVPB SCH (09:15)
--- NOTE | 2017-08-30 11:12 | CP.PCM.PN ---
Subjective - Date & Time of Evaluation Date of Evaluation: 08/30/17 Time of Evaluation: 10:25 - Subjective Subjective: Patient is still complaining of occasional pain in the right flank but it has improved, still has swollen legs, occasionally has breathing difficulties, no fevers overnight. Objective - Vital Signs/Intake and Output Vital Signs (last 24 hours): Temp Pulse Resp BP Pulse Ox 97.5 F L 69 19 111/66 99 08/30/17 05:50 08/30/17 05:50 08/30/17 05:50 08/30/17 05:50 08/30/17 05:50 Intake and Output: 08/30/17 08/30/17 06:59 18:59 Intake Total 240 Output Total 1400 Balance -1160 - Medications Medications: Current Medications Amylase (Pancrease 34214 U-5000 U-54434 U) 15,000 u PO AC [facility] Last Admin: 08/30/17 07:54 Dose: 15,000 u Apixaban (Eliquis) 2.5 mg PO BID [facility] PRN Reason: Protocol Last Admin: 08/29/17 17:09 Dose: 2.5 mg Carvedilol (Coreg) 25 mg PO BID [facility] Last Admin: 08/29/17 17:09 Dose: 25 mg Famotidine (Pepcid) 20 mg PO DAILY [facility] Last Admin: 08/29/17 11:08 Dose: 20 mg Furosemide (Lasix) 40 mg IVP Q12 [facility] Last Admin: 08/29/17 21:57 Dose: 40 mg Guaifenesin (Robitussin) 200 mg PO Q4H PRN PRN Reason: Cough and congestion Last Admin: 08/22/17 20:54 Dose: 200 mg Hydromorphone HCl (Dilaudid) 1.5 mg IVP Q4H PRN PRN Reason: Pain, moderate (4-7) Last Admin: 08/30/17 08:01 Dose: 1.5 mg Ceftriaxone Sodium (Rocephin 1 Gram Ivpb (D5w)) 1 gm in 100 mls @ 100 mls/hr IVPB DAILY [facility] PRN Reason: Protocol Stop: 09/04/17 10:01 Last Admin: 08/29/17 11:26 Dose: 100 mls/hr - Labs Labs: 08/30/17 06:50 08/30/17 06:50 PT 13.0 SECONDS (9.4-12.5) H 08/22/17 14:57 INR 1.19 (0.93-1.08) H 08/22/17 14:57 APTT 34.0 Seconds (25.1-36.5) 08/22/17 14:57 - Constitutional Appears: Non-toxic, No Acute Distress - Head Exam Head Exam: NORMAL INSPECTION - ENT Exam ENT Exam: Mucous Membranes Moist - Neck Exam Neck Exam: absent: Lymphadenopathy, Meningismus - Respiratory Exam Respiratory Exam: Decreased Breath Sounds - Cardiovascular Exam Cardiovascular Exam: +S1, +S2 - GI/Abdominal Exam GI & Abdominal Exam: Soft. absent: Tenderness - Extremities Exam Extremities Exam: Pedal Edema Assessment and Plan - Assessment and Plan (Free Text) Plan: Assessment Severe sepsis with probable left sided pyelonephritis with obstructing left ureteral calculus S/P cystoscopy, placement of left pigtail stent POD #7, slowly improving morbid obesity with BMI 55 HTN alcoholic cardiomyopathy history of pancreatitis history of kidney stones Plan Continue Rocephin day 7 - can switch to PO Ciprofloxacin when ready for discharge to complete the 10-14 day course should follow up with Urology as an outpatient - discussed with Dr. Lange
--- NOTE | 2017-08-30 13:14 | CP.PCM.PN ---
<Thania Ge - Last Filed: 08/30/17 13:14> Subjective - Date & Time of Evaluation Date of Evaluation: 08/30/17 Time of Evaluation: 10:40 - Subjective Subjective: S&E at bedside, chart reviewed, LE edema improving, reports he feels weak, he has been ambulating but not like he used, gets SOB at times, no chest pain, N/ V. Same abdominal discomfort, having BM, no diarrhea or bleeding, Urinating, no blood. He is worried about his medication regemine. Objective - Vital Signs/Intake and Output Vital Signs (last 24 hours): Temp Pulse Resp BP Pulse Ox 98.2 F 44 L 20 130/75 99 08/30/17 12:00 08/30/17 12:00 08/30/17 12:00 08/30/17 12:00 08/30/17 05:50 Intake and Output: 08/30/17 08/30/17 06:59 18:59 Intake Total 240 Output Total 1400 250 Balance -1160 -250 - Medications Medications: Current Medications Amylase (Pancrease 00406 U-5000 U-24607 U) 15,000 u PO AC [facility] Last Admin: 08/30/17 12:17 Dose: 15,000 u Apixaban (Eliquis) 2.5 mg PO BID [facility] PRN Reason: Protocol Last Admin: 08/30/17 09:14 Dose: 2.5 mg Carvedilol (Coreg) 25 mg PO BID [facility] Last Admin: 08/30/17 09:13 Dose: 25 mg Famotidine (Pepcid) 20 mg PO DAILY [facility] Last Admin: 08/30/17 09:15 Dose: 20 mg Furosemide (Lasix) 40 mg PO BID [facility] Guaifenesin (Robitussin) 200 mg PO Q4H PRN PRN Reason: Cough and congestion Last Admin: 08/22/17 20:54 Dose: 200 mg Hydromorphone HCl (Dilaudid) 1.5 mg IVP Q4H PRN PRN Reason: Pain, moderate (4-7) Last Admin: 08/30/17 12:17 Dose: 1.5 mg Ceftriaxone Sodium (Rocephin 1 Gram Ivpb (D5w)) 1 gm in 100 mls @ 100 mls/hr IVPB DAILY [facility] PRN Reason: Protocol Stop: 09/04/17 10:01 Last Admin: 08/30/17 09:15 Dose: 100 mls/hr - Labs Labs: 08/30/17 06:50 08/30/17 06:50 PT 13.0 SECONDS (9.4-12.5) H 08/22/17 14:57 INR 1.19 (0.93-1.08) H 08/22/17 14:57 APTT 34.0 Seconds (25.1-36.5) 08/22/17 14:57 - Constitutional Appears: No Acute Distress - Head Exam Head Exam: NORMOCEPHALIC - Eye Exam Eye Exam: Normal appearance. absent: Scleral icterus - ENT Exam ENT Exam: Mucous Membranes Moist - Neck Exam Neck Exam: Normal Inspection - Respiratory Exam Respiratory Exam: NORMAL BREATHING PATTERN. absent: Respiratory Distress - Cardiovascular Exam Cardiovascular Exam: +S1, +S2 - GI/Abdominal Exam GI & Abdominal Exam: Soft, Normal Bowel Sounds. absent: Guarding, Tenderness, Rebound - Extremities Exam Extremities Exam: Pedal Edema (improving) Assessment and Plan - Assessment and Plan (Free Text) Assessment: Assessment: Left obstructing ureteral stone, s/p Cystoscopy w left pigtail stent Atrial Fibrillation Dehydration Acute renal failure, improving Recurrent pancreatitis Morbid obesity Hypertension Plan: Continue diet as tolerated continue Pancreatic enzymes Continue Pepcid 20 mg daily On ceftriaxone IVPB on Eliquis On Lasix 40 BID Monitor electrolytes as per renal/urology/cardiology Seen and discussed with Dr. Choe. <Souleymane Cheo V - Last Filed: 08/30/17 22:33> Objective - Vital Signs/Intake and Output Vital Signs (last 24 hours): Temp Pulse Resp BP Pulse Ox 97.6 F 63 21 108/62 93 L 08/30/17 17:49 08/30/17 17:49 08/30/17 17:49 08/30/17 17:49 08/30/17 17:49 Intake and Output: 08/30/17 08/31/17 18:59 06:59 Intake Total 120 Output Total 250 600 Balance -250 -480 - Medications Medications: Current Medications Amylase (Pancrease 97232 U-5000 U-69666 U) 15,000 u PO AC [facility] Last Admin: 08/30/17 17:22 Dose: 15,000 u Apixaban (Eliquis) 2.5 mg PO BID [facility] PRN Reason: Protocol Last Admin: 08/30/17 17:21 Dose: 2.5 mg Carvedilol (Coreg) 25 mg PO BID [facility] Last Admin: 08/30/17 17:21 Dose: 25 mg Famotidine (Pepcid) 20 mg PO DAILY [facility] Last Admin: 08/30/17 09:15 Dose: 20 mg Furosemide (Lasix) 40 mg PO BID [facility] Last Admin: 08/30/17 17:21 Dose: 40 mg Guaifenesin (Robitussin) 200 mg PO Q4H PRN PRN Reason: Cough and congestion Last Admin: 08/22/17 20:54 Dose: 200 mg Hydromorphone HCl (Dilaudid) 1.5 mg IVP Q4H PRN PRN Reason: Pain, moderate (4-7) Last Admin: 08/30/17 20:50 Dose: 1.5 mg Ceftriaxone Sodium (Rocephin 1 Gram Ivpb (D5w)) 1 gm in 100 mls @ 100 mls/hr IVPB DAILY [facility] PRN Reason: Protocol Stop: 09/04/17 10:01 Last Admin: 08/30/17 09:15 Dose: 100 mls/hr - Labs Labs: 08/30/17 06:50 08/30/17 06:50 PT 13.0 SECONDS (9.4-12.5) H 08/22/17 14:57 INR 1.19 (0.93-1.08) H 08/22/17 14:57 APTT 34.0 Seconds (25.1-36.5) 08/22/17 14:57 Attending/Attestation - Attestation I have personally seen and examined this patient.: Yes I have fully participated in the care of the patient.: Yes I have reviewed all pertinent clinical information, including history, physical exam and plan: Yes Notes (Text): is is an addendum to review progress report dictated by Thania Ge APN. This patient was seen and evaluated earlier On examination patient does have mild epigastric tenderness still has bilateral pitting pedal edema Overall is been significantly improving. I did explain to him about the need to take small quantities of food multiple times Patient is on Pepcid low-dose Anterior mental illness reported separately to t 08/30/17 22:31 08/30/17 22:33 ient
--- NOTE | 2017-08-30 14:36 | PN ---
DATE: 08/30/2017 LOCATION: The patient in room 373, bed 3. REASON FOR CONSULTATION: Followup congestive heart failure, atrial fibrillation. SUBJECTIVE: The patient denies any chest pain or palpitation, but he complains of shortness of breath on exertion. PHYSICAL EXAMINATION: VITAL SIGNS: Blood pressure 111/56, respirations 20, pulse 69, temperature 97.5. HEENT: Head is normocephalic. Eyes: Pupils are normal. Conjunctivae slightly pale. NECK: JVP is low. Carotids are equal. Thorax: AP diameter normal. LUNGS: Few basilar rales. CARDIOVASCULAR: S1 and S2. ABDOMEN: Protuberant. EXTREMITIES: No clubbing. No cyanosis. LABORATORY DATA: WBC 14.7, hemoglobin 11.3, hematocrit 34.9, and platelets 607. Sodium 136, potassium 4.1. BUN 31 and creatinine 1.6. Random sugar 114. AST and ALT are normal. Total protein and albumin are normal. DIAGNOSES: 1. Dilated cardiomyopathy. 2. Chronic atrial fibrillation. 3. Renal failure status post stent at ureterovesical junction for a stone and acute hydronephrosis, morbid obesity, anemia, renal failure. PLAN: The patient's BUN and creatinine is improving. The patient on Coreg 25 mg b.i.d., Eliquis 2.5 b.i.d., furosemide 40 mg b.i.d., Lasix dose being increased today. Discussed the case with Dr. Don, geological survey field assistant and Dr. Santiago. Advised the patient to lose weight and follow regularly. The patient is a poor compliance patient. Advised him to follow lab and follow with the physician regularly. We will repeat EKG today. We will follow with you. Shayna Jay MD
--- NOTE | 2017-08-30 16:34 | PN ---
DATE: 08/30/2017 SUBJECTIVE: The patient is seen, sitting in bed. He is awake, he is alert. He complains of not feeling well. He complains of dyspnea on exertion. He does not feel comfortable. PHYSICAL EXAMINATION: GENERAL: Obese young male, sitting in bed. VITAL SIGNS: Blood pressure 130/75, heart rate 69, respiratory rate 19, temperature 97.5. HEENT: Normocephalic, atraumatic. NECK: Supple, no JVD. LUNGS: Bilateral equal air entry, basilar rales, left greater than right. CARDIAC: S1, S2, regular rate and rhythm, no murmur, no rub. ABDOMEN: Obese, distended, soft, nontender, bowel sounds present. EXTREMITIES: 2+ pitting edema of the lower extremities. INTAKE AND OUTPUT: 340/1400 LABORATORY DATA: WBC 14.7, hemoglobin 11, hematocrit 35, platelets 607. Sodium 136, potassium 4.1, chloride 99, CO2 of 28, BUN 31, creatinine 1.6, glucose 114, calcium 9.4, phosphorus 5.0, magnesium 1.8, AST 36, ALT 28, albumin 3.3. Urine culture, no growth. Initial urine culture, Klebsiella. CURRENT MEDICATIONS: Coreg 25 b.i.d., Dilaudid, Eliquis 2.5 b.i.d., Lasix 40 p.o. b.i.d., Pancrease 1500, Pepcid 20, guaifenesin 200, and ceftriaxone 1 g. ASSESSMENT: 1. Acute kidney injury, superimposed on chronic kidney disease stage III, resolving. Acute kidney injury, creatinine at baseline. 2. Left pyelonephritis, status post stent placement, obstructive uropathy. 3. Morbid obesity. 4. Severe hypertension. 5. Hypertensive heart disease. 6. Chronic pain, dependence on narcotics. 7. Recurrent pancreatitis. PLAN: 1. Continue antibiotics, complete 2 weeks. 2. Continue Lasix 40 b.i.d. 3. Restart antihypertensives, Diovan 320. 4. Avoid Norvasc. 5. Close outpatient followup. 6. Continue Eliquis as per Cardiology. PMSHx/FHx/SHx/ROS all reviewed and unchanged except as mentioned above. Angelica Don MD MTDSusan
--- NOTE | 2017-08-30 19:06 | PN ---
DATE: SUBJECTIVE: The patient is a 36-year-old, seen and examined, still complaining shortness of breath and leg swelling. Eating and tolerating. No abdominal pain. No hemoptysis. No hematemesis. PHYSICAL EXAMINATION: VITAL SIGNS: He is afebrile, pulse 44, respirations 20, blood pressure 130/75. LUNGS: Bilateral good airflow. No rhonchi or crackles. HEART: S1 and S2 audible. ABDOMEN: Soft, obese, nontender. No rebound. No guarding. NEUROLOGIC: He is awake, alert, oriented, able to communicate. LABORATORY DATA: WBC is 14.7, hemoglobin 11, hematocrit 34.9, platelet of 67. Chemistries; sodium 136, potassium 4.1, chloride 99, CO2 of 25, BUN 31, creatinine 1.6, blood sugar of 111. Urine grew Klebsiella pneumonia. ASSESSMENT: 1. Left-sided renal colic. 2. Status post ureteral stent placement. 3. Paroxysmal atrial fibrillation. 4. Morbid obesity. 5. Recurrent pancreatitis. 6. Resolving acute renal failure. 7. Nonischemic cardiomyopathy. PLAN: So, plan is discussed with Dr. Jay. Discussed with Dr. Don. We will continue the patient on Lasix 40 twice a day. We will continue on Coreg. Continue on spironolactone and valsartan, he is on 320 daily. He had EKG done to see if he is in sinus rhythm then he might have to take Eliquis for a short period. Sammy Santiago MD
--- NOTE | 2017-08-30 23:16 | CARD ---
APPROVED REPORT EKG Measurement Heart [id number] <Conclusion> Atrial flutter with variable AV block with premature ventricular or aberrantly conducted complexes Minimal voltage criteria for LVH, may be normal variant Junctional ST depression, probably normal Prolonged QT Abnormal ECG
[2017-08-31 00:25] VITALS: RESP 19
[2017-08-31] MEDS: HYDROmorphone 2 mg/ml ISec IVP PRN ×4 (00:47→12:34)
[2017-08-31 06:24] VITALS: TEMP 98; O2SAT 97
[2017-08-31 07:35] LABS: MEAN CELL VOLUME 96.6 fl (80.0-105.0); MEAN CORPUSCULAR HEMOGLOBIN 32.4 pg (25.0-35.0); MEAN CORPUSCULAR HGB CONC 33.5 g/dl (31.0-37.0); MEAN PLATELET VOLUME 9.6 fl (7.0-11.0); RED CELL DISTRIBUTION WIDTH 14.1 % (11.5-14.5); WHITE BLOOD COUNT 12.5 10^3/ul (4.5-11.0)
[2017-08-31] MEDS: Amylase/Lipase/Protease 5,000 U ECC PO SCH ×2 (08:50→12:05)
[2017-08-31 09:21] LABS: ALB/GLOB RATIO 0.8 (1.1-1.8); ALKALINE PHOSPHATASE 63 U/L (38-126); ALT/SGPT 24 U/L (7-56); AST/SGOT 27 U/L (17-59); BILIRUBIN,TOTAL 0.5 mg/dL (0.2-1.3); BLOOD UREA NITROGEN 32 mg/dL (7-21); CALCIUM 9.3 mg/dL (8.4-10.5); CARBON DIOXIDE 27 mmol/L (21-33); CHLORIDE 98 mmol/L (98-107); GFR AFRICAN-AMERICAN > 60; GLUCOSE,RANDOM 107 mg/dL (70-110); POTASSIUM 3.9 mmol/L (3.6-5.0); SODIUM 134 mmol/L (132-148); TOTAL PROTEIN 7.5 g/dL (5.8-8.3)
[2017-08-31] MEDS: cefTRIAXone 1 gm 1 GM/100 ML BAG IVPB SCH (10:23)
[2017-08-31 10:25] VITALS: BP 114/62
--- NOTE | 2017-08-31 12:28 | CP.PCM.PN ---
Subjective - Date & Time of Evaluation Date of Evaluation: 08/31/17 Time of Evaluation: 10:55 - Subjective Subjective: No fevers, not in distress. Objective - Vital Signs/Intake and Output Vital Signs (last 24 hours): Temp Pulse Resp BP Pulse Ox 98 F 80 19 104/64 97 08/31/17 06:00 08/31/17 06:00 08/31/17 06:00 08/31/17 06:00 08/31/17 06:00 Intake and Output: 08/31/17 08/31/17 06:59 18:59 Intake Total 360 Output Total 900 Balance -540 - Medications Medications: Current Medications Amylase (Pancrease 64270 U-5000 U-29612 U) 15,000 u PO AC [facility] Last Admin: 08/31/17 08:50 Dose: 15,000 u Apixaban (Eliquis) 2.5 mg PO BID [facility] PRN Reason: Protocol Last Admin: 08/30/17 17:21 Dose: 2.5 mg Carvedilol (Coreg) 25 mg PO BID [facility] Last Admin: 08/30/17 17:21 Dose: 25 mg Famotidine (Pepcid) 20 mg PO DAILY [facility] Last Admin: 08/30/17 09:15 Dose: 20 mg Furosemide (Lasix) 40 mg PO BID [facility] Last Admin: 08/30/17 17:21 Dose: 40 mg Guaifenesin (Robitussin) 200 mg PO Q4H PRN PRN Reason: Cough and congestion Last Admin: 08/22/17 20:54 Dose: 200 mg Hydromorphone HCl (Dilaudid) 1.5 mg IVP Q4H PRN PRN Reason: Pain, moderate (4-7) Last Admin: 08/31/17 08:50 Dose: 1.5 mg Ceftriaxone Sodium (Rocephin 1 Gram Ivpb (D5w)) 1 gm in 100 mls @ 100 mls/hr IVPB DAILY [facility] PRN Reason: Protocol Stop: 09/04/17 10:01 Last Admin: 08/30/17 09:15 Dose: 100 mls/hr - Labs Labs: 08/31/17 06:45 08/31/17 06:45 PT 13.0 SECONDS (9.4-12.5) H 08/22/17 14:57 INR 1.19 (0.93-1.08) H 08/22/17 14:57 APTT 34.0 Seconds (25.1-36.5) 08/22/17 14:57 - Constitutional Appears: Non-toxic - Head Exam Head Exam: NORMAL INSPECTION - Respiratory Exam Respiratory Exam: Decreased Breath Sounds - Cardiovascular Exam Cardiovascular Exam: +S1, +S2 - GI/Abdominal Exam GI & Abdominal Exam: Soft. absent: Tenderness Assessment and Plan - Assessment and Plan (Free Text) Plan: Assessment Severe sepsis with probable left sided pyelonephritis with obstructing left ureteral calculus S/P cystoscopy, placement of left pigtail stent POD #8, slowly improving morbid obesity with BMI 55 HTN alcoholic cardiomyopathy history of pancreatitis history of kidney stones Plan Continue Rocephin day 8 - can switch to PO Ciprofloxacin when ready for discharge to complete the 10-14 day course should follow up with Urology as an outpatient - discussed with Dr. Lange
[2017-08-31 15:16] VITALS: PULSE 77
--- NOTE | 2017-08-31 17:10 | CP.PCM.PN ---
<Thania Ge J - Last Filed: 08/31/17 17:09> Subjective - Date & Time of Evaluation Date of Evaluation: 08/31/17 Time of Evaluation: 10:40 - Subjective Subjective: S&E at bedside this am, no acute overnight events reported, patient abdominal pain at times, no d/o diarrhea or overt GI bleeding. No SOB or chest pain. Objective - Vital Signs/Intake and Output Vital Signs (last 24 hours): Temp Pulse Resp BP Pulse Ox 98 F 77 19 114/62 97 08/31/17 06:00 08/31/17 14:00 08/31/17 06:00 08/31/17 10:22 08/31/17 06:00 Intake and Output: 08/31/17 08/31/17 06:59 18:59 Intake Total 360 Output Total 900 Balance -540 - Labs Labs: 08/31/17 06:45 08/31/17 06:45 PT 13.0 SECONDS (9.4-12.5) H 08/22/17 14:57 INR 1.19 (0.93-1.08) H 08/22/17 14:57 APTT 34.0 Seconds (25.1-36.5) 08/22/17 14:57 - Constitutional Appears: No Acute Distress - Eye Exam Eye Exam: Normal appearance. absent: Scleral icterus - ENT Exam ENT Exam: Mucous Membranes Moist - Neck Exam Neck Exam: Normal Inspection - Respiratory Exam Respiratory Exam: NORMAL BREATHING PATTERN. absent: Respiratory Distress - Cardiovascular Exam Cardiovascular Exam: +S1, +S2 - GI/Abdominal Exam GI & Abdominal Exam: Soft, Normal Bowel Sounds. absent: Tenderness, Rebound - Extremities Exam Extremities Exam: Pedal Edema (improving). absent: Calf Tenderness - Neurological Exam Neurological Exam: Alert, Awake, Oriented x3 - Skin Skin Exam: Dry, Warm Assessment and Plan - Assessment and Plan (Free Text) Assessment: Assessment: Left obstructing ureteral stone, s/p Cystoscopy w left pigtail stent Atrial Fibrillation Dehydration Acute renal failure, improving Recurrent pancreatitis Morbid obesity Hypertension Plan: Continue diet as tolerated, discuss small frequent meals, low fat continue Pancreatic enzymes Continue Pepcid 20 mg daily On ceftriaxone IVPB on Eliquis On Lasix 40 BID Monitor electrolytes as per renal/urology/cardiology Seen and discussed with Dr. Choe. <Souleymane Choe V - Last Filed: 08/31/17 23:06> Objective - Vital Signs/Intake and Output Vital Signs (last 24 hours): Temp Pulse Resp BP Pulse Ox 98 F 77 19 114/62 97 08/31/17 06:00 08/31/17 14:00 08/31/17 06:00 08/31/17 10:22 08/31/17 06:00 - Labs Labs: 08/31/17 06:45 08/31/17 06:45 PT 13.0 SECONDS (9.4-12.5) H 08/22/17 14:57 INR 1.19 (0.93-1.08) H 08/22/17 14:57 APTT 34.0 Seconds (25.1-36.5) 08/22/17 14:57 Attending/Attestation - Attestation I have personally seen and examined this patient.: Yes I have fully participated in the care of the patient.: Yes I have reviewed all pertinent clinical information, including history, physical exam and plan: Yes Notes (Text): in this patient was seen and evaluated earlier. this is an addendum to the progress report dictated by Thania Ge APN. Patient is tolerating diet. On pancreatic enzyme supplement On examination abdomen soft mildly tender in the epigastric area Continue Pepcid Patient is planned to be discharged today. Complete antibiotics as per ID 08/31/17 23:04
--- NOTE | 2017-08-31 18:08 | PN ---
DATE: 08/31/2017 SUBJECTIVE: The patient is seen lying in bed. He is awake, he is alert. He is still complaining of shortness of breath. He denies any chest pain. He denies any palpitations. PHYSICAL EXAMINATION: GENERAL: Morbidly obese young male, lying in bed. VITAL SIGNS: Blood pressure 114/62, heart rate 76, respiratory rate 18, temperature 98. HEENT: Normocephalic, atraumatic. NECK: Supple, no JVD. LUNGS: Bilateral equal entry, rales. CARDIAC: S1 and S2, regular rate and rhythm, no murmur, no rub. ABDOMEN: Obese, distended, soft, nontender, bowel sounds present. EXTREMITIES: 2+ pitting edema of the lower extremities. INTAKE AND OUTPUT: 360/1150 LABORATORY DATA: WBC 12.5, hemoglobin 11.4, hematocrit 34, platelets 576. Sodium 134, potassium 3.9, chloride 98, CO2 of 27, BUN 32, creatinine 1.5, glucose 107, calcium 9.3. AST 27, ALT 24, albumin 3.3. CURRENT MEDICATIONS: Coreg 12.5 b.i.d., Dilaudid 1.5, Eliquis 2.5 b.i.d., Lasix 40 p.o. b.i.d., amylase, Pepcid, guaifenesin, and ceftriaxone 1 g daily. ASSESSMENT: 1. Resolved acute kidney injury, obstructive uropathy. 2. Status post left pyelonephritis with obstructing stone. 3. Status post left ureteral stent. 4. Morbid obesity. 5. Underlying chronic disease stage III. 6. Severe hypertension. 7. Hypertensive heart disease. 8. Transient atrial fibrillation. PLAN: 1. Continue Lasix 40 p.o. b.i.d. 2. Continue Eliquis as per Cardiology recommendations. 3. Restart outpatient antihypertensives. 4. Close outpatient followup. Discussed with the patient at length. Angelica Don MD
--- NOTE | 2017-08-31 19:04 | PN ---
DATE: 08/31/2017 REASON FOR CONSULTATION AND FOLLOWUP: Congestive heart failure, atrial fibrillation, and abdominal pain. SUBJECTIVE: The patient denies any chest pain or palpation, but complained of still short of breath on exertion on minimal activity. The patient also complained of abdominal pain. PHYSICAL EXAMINATION: GENERAL: Not in apparent distress. VITAL SIGNS: Temperature afebrile, heart rate 76, and blood pressure 114/62. HEENT: PERRLA. Extraocular muscles intact. NECK: Supple. No carotid bruits or thyromegaly. CHEST: Clear to auscultation. HEART: S1 and S2. Regular. ABDOMEN: Soft. EXTREMITIES: Clubbing and cyanosis negative. LABORATORY DATA: Blood workup as follows: WBC 12.5, hemoglobin 11.4, hematocrit 34, and platelet count 576. Chemistry shows sodium 134, potassium 3.9, chloride 90, anion gap of 13, BUN 32, and creatinine 1.5. IMPRESSION: Dilated cardiomyopathy, chronic atrial fibrillation, renal insufficiency, status post stent at ureterovesical junction, hydronephrosis, morbid obesity, anemia, and renal insufficiency. RECOMMENDATION: Monitor renal function which is improving, acute kidney injury secondary to obstructive uropathy which is improving. Continue Coreg. Continue Eliquis. Emphasis on weight reduction modification. Last time modification risk factor for coronary artery disease. Continue Lasix, change to p.o. Continue Eliquis 2.5 b.i.d. We will follow with you. Thank you for providing us the opportunity in taking care of the patient, Gareth Leblanc. Shayna Thomson MD
--- NOTE | 2017-09-01 00:40 | DS ---
HISTORY OF PRESENT ILLNESS: The patient is a 36-year-old, who was admitted on 08/22/2017 with complaint of left flank pain and increasing shortness of breath. He was found to be in AFib. He was started on Cardizem drip. He was hypoxic and was in acute CHF, so he was transferred to ICU. His left flank pain got worse. He was sent to CT scan and was found to have hydronephrosis. He was in acute renal failure with creatinine of 3.7, so he was evaluated by Dr. Lange, who did emergency cystoscopy, so he was taken for emergency cystoscopy and ureteral stent placement. After stent was placed, his kidney function started to improve. In the meantime, he was started on IV diuretics. He was given antibiotics because he was growing Klebsiella pneumoniae. The patient responded to above treatment well. His kidney function started to improve. So, his diet was advanced and he seems to be tolerating. PHYSICAL EXAMINATION: GENERAL: Today; he is awake, alert, oriented, and communicative. VITAL SIGNS: He is afebrile, pulse 77, respirations 19, and blood pressure 114/62. LUNGS: Bilateral good airflow. No rhonchi or crackles. HEART: S1 and S2 audible. No murmur. ABDOMEN: Soft, nontender, and obese. No hepatosplenomegaly. NEUROLOGIC: The patient is awake, alert, oriented, communicative, and ambulatory. LABORATORY DATA: WBC is 12.5, hemoglobin is 11.4, hematocrit is 34, and platelet is 574. Chemistry: Sodium 134, potassium 3.9, chloride 98, CO2 of 27, BUN 32, creatinine 1.5, and blood sugar 107. ASSESSMENT: 1. Acute kidney failure secondary to left ureteral obstruction. 2. Status post hydronephrosis. 3. Status post ureteral stent placement. 4. Paroxysmal atrial fibrillation. 5. Morbid obesity. 6. Nonischemic cardiomyopathy. 7. Klebsiella urinary tract infection. PLAN: The patient is being discharged home on Lasix 40 mg twice a day. He will resume Aldactone. He will go back on Diovan and he will stay on Pepcid as needed. So, the patient is being discharged home on Eliquis 2.5 twice a day. He will receive Cipro 500 twice a day for five more days and he will follow up with Dr. Don, myself, and audio visual engineer as an outpatient. Sammy Santiago MD
== END 2017-08-31 15:27 | disposition home or self-care (01) | DRG 871 ==
LOC: ED 13:57 → ERH 18:47 → 3RNO 20:03 → 3RSO 08-23 15:56 → CCU 08-23 19:59 → 3RSO 08-27 15:38
PROVIDERS: ADMIT Internal Medicine; ATTEND Internal Medicine
PROC: 0T778DZ Dilation of Left Ureter with Intraluminal Device, Via Natural or Artificial Opening Endoscopic (ICD-10-PCS; principal; 2017-08-24 21:15)
DX: A41.9 Sepsis, unspecified organism (principal); N13.6 Pyonephrosis; I50.21 Acute systolic (congestive) heart failure; I42.0 Dilated cardiomyopathy; N17.9 Acute kidney failure, unspecified; E87.1 Hypo-osmolality and hyponatremia; I42.6 Alcoholic cardiomyopathy; I13.0 Hypertensive heart and chronic kidney disease with heart failure and stage 1 through stage 4 chronic kidney disease, or unspecified chronic kidney disease; N18.3 Chronic kidney disease, stage 3 (moderate); K86.0 Alcohol-induced chronic pancreatitis; I48.92 Unspecified atrial flutter; Z68.43 Body mass index [BMI] 50.0-59.9, adult; I48.0 Paroxysmal atrial fibrillation; E66.01 Morbid (severe) obesity due to excess calories; E86.0 Dehydration; R65.20 Severe sepsis without septic shock; N35.9 Urethral stricture, unspecified; R09.02 Hypoxemia; B96.1 Klebsiella pneumoniae [K. pneumoniae] as the cause of diseases classified elsewhere; K21.9 Gastro-esophageal reflux disease without esophagitis; N28.1 Cyst of kidney, acquired; F17.210 Nicotine dependence, cigarettes, uncomplicated; G47.33 Obstructive sleep apnea (adult) (pediatric); I25.5 Ischemic cardiomyopathy; K29.70 Gastritis, unspecified, without bleeding; K57.90 Diverticulosis of intestine, part unspecified, without perforation or abscess without bleeding; K31.84 Gastroparesis; J45.909 Unspecified asthma, uncomplicated; D64.9 Anemia, unspecified; K27.9 Peptic ulcer, site unspecified, unspecified as acute or chronic, without hemorrhage or perforation; E78.5 Hyperlipidemia, unspecified; I48.2 Chronic atrial fibrillation; G89.29 Other chronic pain

== ENCOUNTER 2017-09-12 18:57 | Inpatient (IN) | payer BC ==
[2017-09-12 18:58] VITALS: PULSE 95
[2017-09-12 19:08] VITALS: BMI 46.8
[2017-09-12] MEDS ORDERED: Sodium Chloride 0.9% 1,000 ML IV STA ×2 (19:39→20:05)
[2017-09-12 19:56] LABS: BASO # 0.01 K/mm3 (0.0-2.0); EOS # 0.1 (0.0-0.7); EOS % 0.3 % (1.5-5.0); GRAN # 15.09 (1.4-6.5); GRAN % 73.7 % (50.0-68.0); HEMATOCRIT 37.6 % (42.0-52.0); LYMPH # 2.1 (1.2-3.4); LYMPH % 10.2 % (22.0-35.0); MEAN CELL VOLUME 96.9 fl (80.0-105.0); MEAN CORPUSCULAR HEMOGLOBIN 31.4 pg (25.0-35.0); MEAN CORPUSCULAR HGB CONC 32.4 g/dl (31.0-37.0); MEAN PLATELET VOLUME 10.3 fl (7.0-11.0); MONO # 3.3 (0.1-0.6); MONO % 15.8 % (1.0-6.0); RED CELL DISTRIBUTION WIDTH 14.6 % (11.5-14.5); WHITE BLOOD COUNT 20.5 10^3/ul (4.5-11.0)
[2017-09-12 19:59] LABS: VENOUS BLOOD GAS BASE EXCESS 0.3 mmol/L (0.0-2.0); VENOUS BLOOD PH 7.39 (7.32-7.43)
[2017-09-12] MEDS ORDERED: Vancomycin 1gm in NS 250ml 1 GM/250 ML BAG IVPB STA (20:04)
[2017-09-12] MEDS ORDERED: Piperacill/Tazo 4.5gm in NS 4.5 GM/100 ML BAG IVPB STA (20:04)
[2017-09-12 20:06] LABS: ALB/GLOB RATIO 0.9 (1.1-1.8); BILIRUBIN,TOTAL 1.2 mg/dL (0.2-1.3); CALCIUM 9.9 mg/dL (8.4-10.5); INR 1.47 (0.93-1.08); MAGNESIUM 1.9 mg/dL (1.7-2.2); PARTIAL THROMBOPLASTIN TIME 38.8 Seconds (25.1-36.5); PHOSPHOROUS 4.2 mg/dL (2.5-4.5); POTASSIUM 5.3 mmol/L (3.6-5.0); TOTAL PROTEIN 8.8 g/dL (5.8-8.3)
[2017-09-12 20:13] LABS: TROPONIN I 0.04 ng/mL
--- NOTE | 2017-09-12 20:15 | ED PDOC ---
Arrival/HPI - General Historian: Patient - History of Present Illness Time/Duration: 24 hours Symptom Onset: Sudden Symptom Course: Unchanged Activities at Onset: Rest, Light Context: Other <Wander Montilla - Last Filed: 09/12/17 23:16> <Slim Vaz - Last Filed: 09/15/17 04:26> - General Chief Complaint: Dizziness/Lightheaded Time Seen by Provider: 09/12/17 18:58 - History of Present Illness Narrative History of Present Illness (Text): 09/12/17 20:01 Mr. Leblanc is a 36 year old AA male with a past medical history significant for HTN, atrial fibrillation, cardiomyopathy (08/18 LVEF of 40%) chronic pancreatitis, morbid obesity, hydronephrosis, recurrent UTI presents to the [facility] from Dr. Santiago's office for hypotension. Patient reports that he went for his regular health maintenance visit and was found to have a BP of 80's/50' s with associated weakness and lightheadedness. He also endorses "some" pain with urination, chronic LE edema, chronic LLQ and LUQ abdominal pain, SOB on exertion, and back pain. He denies fevers, chills, headache, changes in his vision, neck pain/stiffness, chest pain, palpitations, SOB, wheezing, cough, N/V /D/C, rashes, or any numbness/tingling of any extremity. (Wander Montilla) Past Medical History - Provider Review Nursing Documentation Reviewed: Yes - Travel History Have you recently traveled outside [place] w/in the past 3 mons?: No - Past History Past History: Non-Contributing - Infectious Disease Hx of Infectious Diseases: None - Tetanus Immunization Tetanus Immunization: Unknown - Cardiac Hx Cardiac Disorders: Yes (cardiomyopathy) Hx Congestive Heart Failure: Yes Hx Hypertension: Yes Other/Comment: cardiomyopathy - Pulmonary Hx Respiratory Disorders: No Hx Asthma: No Hx Sleep Apnea: No - Neurological Hx Neurological Disorder: No - HEENT Hx HEENT Disorder: No - Renal Hx Renal Disorder: Yes Hx Kidney Stones: Yes Hx Renal Failure: Yes - Endocrine/Metabolic Hx Endocrine Disorders: Yes Other/Comment: pancreatitis - Hematological/Oncological Hx Blood Disorders: No - Integumentary Hx Dermatological Disorder: No - Musculoskeletal/Rheumatological Hx Falls: No - Gastrointestinal Hx Gastrointestinal Disorders: Yes (obese) Hx Diverticulitis: Yes Hx Gastroesophageal Reflux: Yes Hx Pancreatitis: Yes - Genitourinary/Gynecological Hx Genitourinary Disorders: Yes (urinary retention) - Psychiatric Hx Psychophysiologic Disorder: No Hx Substance Use: No - Past Surgical History Past Surgical History: No Previous - Surgical History Other/Comment: stent to kidney - Anesthesia Hx Anesthesia: Yes Hx Anesthesia Reactions: No Hx Malignant Hyperthermia: No - Suicidal Assessment Feels Threatened In Home Enviroment: No <Wander Montilla - Last Filed: 09/12/17 23:16> Family/Social History - Physician Review Nursing Documentation Reviewed: Yes Family/Social History: Unknown Family HX Smoking Status: Current Some Days Smoker Hx Alcohol Use: No Hx Substance Use: No Hx Substance Use Treatment: No <Wander Montilla - Last Filed: 09/12/17 23:16> Allergies/Home Meds <Wander Montilla - Last Filed: 09/12/17 23:16> <Slim Vaz - Last Filed: 09/15/17 04:26> Allergies/Adverse Reactions: Allergies LUZ Inhibitors Allergy (Verified 09/12/17 19:09) ANGIOEDEMA Home Medications: Home Meds Medication Instructions Recorded Confirmed Amylase/Lipase/Protease [Pancrease 1 ecc PO ACTID 08/06/17 09/12/17 75345 U-5000 U-[id number] U] Carvedilol [Coreg] 12.5 mg PO BID 08/06/17 09/12/17 Famotidine [Pepcid] 20 mg PO DAILY 08/06/17 09/12/17 Furosemide [Lasix] 40 mg PO BID 08/06/17 09/12/17 Spironolactone [Aldactone] 25 mg PO DAILY 08/06/17 09/12/17 Valsartan [Diovan] 320 mg PO DAILY 08/06/17 09/12/17 HYDROmorphone [Dilaudid] 2 mg PO PRN PRN 08/22/17 09/12/17 Review of Systems - Physician Review All systems were reviewed & negative as marked: Yes - Review of Systems Constitutional: Normal. absent: Fevers, Night Sweats Eyes: Normal. absent: Vision Changes ENT: Normal Respiratory: Normal. absent: SOB, Cough, Wheezing Cardiovascular: Edema, LIN. absent: Normal, Chest Pain, Palpitations Gastrointestinal: Abdominal Pain (See HPI). absent: Normal, Constipation, Diarrhea, Nausea, Vomiting, Hematochezia, Hematemesis Genitourinary Male: Dysuria. absent: Normal Musculoskeletal: Back Pain. absent: Normal, Neck Pain Skin: Normal Neurological: Dizziness. absent: Normal, Headache Endocrine: Normal Hemo/Lymphatic: Normal Psychiatric: Normal <Wander Montilla - Last Filed: 09/12/17 23:16> Physical Exam Vital Signs Reviewed: Yes Temperature: Afebrile Blood Pressure: Hypotensive Pulse: Tachycardic Respiratory Rate: Normal Appearance: Positive for: Well-Appearing, Non-Toxic, Comfortable Pain Distress: Moderate Mental Status: Positive for: Alert and Oriented X 3 - Systems Exam Head: Present: Atraumatic, Normocephalic Pupils: Present: PERRL Extroacular Muscles: Present: EOMI Conjunctiva: Present: Normal Mouth: Present: Moist Mucous Membranes Pharnyx: Present: Normal. No: ERYTHEMA, EXUDATE, TONSILS ENLARGED Nose (External): Present: Atraumatic Nose (Internal): Present: Normal Inspection, No Active Bleeding Neck: Present: Normal Range of Motion, Trachea Midline. No: Meningeal Signs, MIDLINE TENDERNESS, Paraspinal Tenderness, JVD, Lymphadenopathy Respiratory/Chest: Present: Clear to Auscultation, Good Air Exchange. No: Respiratory Distress, Accessory Muscle Use, Wheezes, Decreased Breath Sounds, Rales, Retracting, Rhonchi, Tachypneic, Tender to Palpation Cardiovascular: Present: Normal S1, S2, Peripheal Pulses Present, Tachycardic. No: Regular Rate and Rhythm, Murmurs, Irregular Rhythm, Bradycardic, Rub, Gallop , Muffled Abdomen: Present: Tenderness (TTP LLQ/LUQ), Normal Bowel Sounds. No: Distention , Peritoneal Signs, Rebound, Guarding, McBurney's Point Tender Back: Present: Paraspinal Tenderness (Thoracolumbar paraspinal hypertonicity and tenderness). No: Normal Inspection, CVA Tenderness, Midline Tenderness Upper Extremity: Present: Normal Inspection, Normal ROM, NORMAL PULSES. No: Cyanosis, Edema Lower Extremity: Present: Normal Inspection, Edema (+1 pitting edema to mid- calf bilaterally), NORMAL PULSES, Normal ROM, Swelling, Neurovascularly Intact, Capillary Refill < 2 s. No: CALF TENDERNESS, Cyanosis, Hector's Sign, Tenderness , Erythema, Deformity, Temperature Abnormalties Neurological: Present: GCS=15, CN II-XII Intact, Speech Normal, Motor Func Grossly Intact Skin: Present: Warm, Dry, Normal Color. No: Rashes Lymphatic: No: Cervical Adenopathy Psychiatric: Present: Alert, Oriented x 3, Normal Insight, Normal Concentration <Wander Montilla - Last Filed: 09/12/17 23:16> Vital Signs Temp Pulse Resp BP Pulse Ox 09/12/17 21:30 75 16 88/62 L 98 09/12/17 19:09 97.9 F 101 H 18 82/41 L 90 L 09/12/17 19:07 97.9 F 101 H 18 82/41 L 90 L Medical Decision Making - Lab Interpretations I have reviewed the lab results: Yes - RAD Interpretation Master [place]: ED Physician, Radiologist - EKG Interpretation Interpreted by ED Physician: Yes Type: 12 lead EKG <Wander Montilla - Last Filed: 09/12/17 23:16> <Slim Vaz - Last Filed: 09/15/17 04:26> ED Course and Treatment: 09/12/17 20:19 Impression: 36 year old AA male with a past medical history significant for HTN , atrial fibrillation, cardiomyopathy (08/18 LVEF of 40%) chronic pancreatitis, morbid obesity, hydronephrosis, recurrent UTI presents to the [facility] from Dr. Santiago's office for hypotension Plan: -CBC, CMP, INR/aPTT, Mag/Phos, VBG Shock Panel, Blood Culture, UA, Urine Culture and Lipase -Chest X-Ray (portable) -EKG -CT Abdomen/Pelvis w/o contrast -1L NS Bolus -Tylenol 975mg PO STAT -Reassess and disposition Prior Visits: Patient seen and evaluated for hypotension, a-fib and CHF in 08/18 (Wander Montilla) A 36 year old male sent in for hypotension. In agreement with resident note, which includes further HPI details. Patient was seen and evaluated with resident , came up with plan and treatment together. CT Abdomen and Pelvis Without Intravenous Contrast IMPRESSION: Interval placement of a left ureteral stent, decrease in inflammation and edema and perinephric fluid compared to the prior study, proximal left ureteral stone seen on the prior study is now in the lower pole calyx; persistent cyst with layering stones and/or milk of calcium Additional findings as described above. Dictated and Authenticated by: Rochelle Garcia MD 09/13/2017 12:13 AM Eastern Time ([place] & [place]) (Slim Vaz) - Lab Interpretations Microbiology Results: Microbiology Results 09/12/17 20:00 Blood Blood Culture - Preliminary NO GROWTH AFTER 48 HOURS 09/12/17 19:53 Blood Blood Culture - Preliminary NO GROWTH AFTER 48 HOURS Lab Results: 09/12/17 19:40 09/12/17 19:40 Lab Results 09/12/17 19:53: pO2 79 H, VBG pH 7.39, VBG pCO2 42.0, VBG HCO3 25.4, VBG Total CO2 26.7, VBG O2 Sat (Calc) 97.4 H, VBG Base Excess 0.3, VBG Potassium 5.4 H, Glucose 107, Lactate 0.9, FiO2 21.0, Sodium 133.0, Chloride 99.0, Venous Blood Potassium 5.4 H 09/12/17 19:40: Sodium 135, Potassium 5.3 H, Chloride 96 L, Carbon Dioxide 26, Anion Gap 18, BUN 46 H, Creatinine 4.0 H, Est GFR ( Amer) 20, Est GFR ( Non-Af Amer) 17, Random Glucose 110, Calcium 9.9, Phosphorus 4.2, Magnesium 1.9 , Total Bilirubin 1.2, AST 26, ALT 26, Alkaline Phosphatase 86, Lactate Dehydrogenase 353, Total Creatine Kinase 68, Troponin I 0.04, NT-Pro-B Natriuret Pep 1240 H, Total Protein 8.8 H, Albumin 4.1, Globulin 4.7, Albumin/ Globulin Ratio 0.9 L, Lipase 91 09/12/17 19:40: PT 16.2 H, INR 1.47 H, APTT 38.8 H 09/12/17 19:40: WBC 20.5 H D, RBC 3.88, Hgb 12.2 L, Hct 37.6 L, MCV 96.9, MCH 31.4, MCHC 32.4, RDW 14.6 H, Plt Count 272, MPV 10.3, Gran % 73.7 H, Lymph % ( Auto) 10.2 L, [place] % (Auto) 15.8 H, Eos % (Auto) 0.3 L, Baso % (Auto) 0.0, Gran # 15.09 H, Lymph # 2.1, [place] # 3.3 H, Eos # 0.1, Baso # 0.01 - RAD Interpretation Radiology Orders: 09/12/17 19:35 CHEST PORTABLE [RAD] Stat 09/12/17 21:27 ABDOMEN & PELVIS [ABD & PELVIS W/O PO OR IV CONT] [CT] Stat - Medication Orders Current Medication Orders: Amylase (Pancrease 12081 U-5000 U-71025 U) 15,000 u PO ACTID [facility] Last Admin: 09/14/17 17:05 Dose: 15,000 u Apixaban (Eliquis) 2.5 mg PO BID ELSIE PRN Reason: Protocol Last Admin: 09/14/17 17:05 Dose: 2.5 mg Famotidine (Pepcid) 20 mg PO DAILY [facility] Last Admin: 09/14/17 09:30 Dose: 20 mg Hydromorphone HCl (Dilaudid) 1.5 mg IVP Q4H PRN PRN Reason: Pain, severe (8-10) Last Admin: 09/15/17 01:27 Dose: 1.5 mg MAR Pain Assessment Document 09/15/17 01:27 SHARMIN (Rec: 09/15/17 01:29 [id number] Pain Reassessment Is this a pain reassessment? No Sleep Is patient sleeping during reassessment? No Presence of Pain Presence of Pain Yes Location Pain Location Body Site Back IVP Administration Document 09/15/17 01:27 SHARMIN (Rec: 09/15/17 01:29 [facility] [id number]) Charges for Administration # of IVP Administrations 1 Meropenem 250 mg/ Sodium (Chloride) 100 mls @ 100 mls/hr IVPB Q12H ELSIE PRN Reason: Protocol Stop: 09/27/17 08:01 Last Admin: 09/14/17 21:33 Dose: 100 mls/hr eMAR Start Stop Document 09/14/17 21:33 SHARMIN (Rec: 09/14/17 21:33 [facility] [id number]) Intravenous Solution Start Date 09/14/17 Start Time 09:30 End Date 09/14/17 End time 10:30 Total Infusion Time 60 Discontinued Medications Acetaminophen (Tylenol 325mg Tab) 975 mg PO STAT STA Stop: 09/12/17 20:13 Last Admin: 09/12/17 20:53 Dose: 975 mg MAR Pain/Vitals Document 09/12/17 20:53 AD (Rec: 09/12/17 20:54 AD [id number]) Presence of Pain Presence of Pain Yes Pain Scale Used Pain Scale Used Numeric Location Left, Right or Bilateral Left Pain Location Body Site Abdomen Intensity 8 Scale Used Numeric Pain Behavior Facial Grimacing Amylase (Pancrease 50855 U-5000 U-94711 U) 5,000 u PO ACTID ELSIE Last Admin: 09/13/17 07:58 Dose: 5,000 u Amylase (Pancrease 26103 U-5000 U-02345 U) 15,000 u PO ONCE ONE Stop: 09/13/17 11:54 Last Admin: 09/13/17 12:03 Dose: 15,000 u Hydromorphone HCl (Dilaudid) 1 mg IVP Q4H PRN PRN Reason: Pain, moderate (4-7) Last Admin: 09/13/17 13:11 Dose: 1 mg MAR Pain Assessment Document 09/13/17 13:11 SML (Rec: 09/13/17 13:11 [id number] Pain Reassessment Is this a pain reassessment? No Sleep Is patient sleeping during reassessment? No Presence of Pain Presence of Pain Yes Pain Scale Used Pain Scale Used Numeric Location Left, Right or Bilateral Left Pain Location Body Site Abdomen Back Description Intensity of Pain at present 9 IVP Administration Document 09/13/17 13:11 L (Rec: 09/13/17 13:11 [id number] Charges for Administration # of IVP Administrations 1 Sodium Chloride (Sodium Chloride 0.9%) 1,000 mls @ 999 mls/hr IV .Q1H1M STA Stop: 09/12/17 20:39 Last Admin: 09/12/17 19:51 Dose: 999 mls/hr eMAR Start Stop Document 09/12/17 19:51 AD (Rec: 09/12/17 19:52 AD [id number]) Intravenous Solution Start Date 09/12/17 Start Time 19:52 Vancomycin HCl (Vancomycin 1gm) 1 gm in 250 mls @ 167 mls/hr IVPB STAT STA PRN Reason: Protocol Stop: 09/12/17 21:33 Last Admin: 09/12/17 22:18 Dose: 167 mls/hr eMAR Start Stop Document 09/12/17 22:18 AD (Rec: 09/12/17 22:18 AD [id number]) Intravenous Solution Start Date 09/12/17 Start Time 22:18 Piperacillin Sod/Tazobactam Sod (Zosyn 4.5 Gm In Ns 100ml) 4.5 gm in 100 mls @ 200 mls/hr IVPB STAT STA PRN Reason: Protocol Stop: 09/12/17 20:33 Last Admin: 09/12/17 20:53 Dose: 200 mls/hr eMAR Start Stop Document 09/12/17 20:53 AD (Rec: 09/12/17 20:53 AD [id number]) Intravenous Solution Start Date 09/12/17 Start Time 20:53 Sodium Chloride (Sodium Chloride 0.9%) 1,000 mls @ 999 mls/hr IV .Q1H1M STA Stop: 09/12/17 21:05 Last Admin: 09/12/17 20:53 Dose: 999 mls/hr eMAR Start Stop Document 09/12/17 20:53 AD (Rec: 09/12/17 20:53 AD [id number]) Intravenous Solution Start Date 09/12/17 Start Time 20:53 Dextrose/Sodium Chloride (Dextrose 5%/0.45% Ns 1000 Ml) 1,000 mls @ 40 mls/hr IV .Q24H [facility] Last Admin: 09/12/17 23:14 Dose: 40 mls/hr eMAR Start Stop Document 09/12/17 23:14 AD (Rec: 09/12/17 23:15 AD [id number]) Intravenous Solution Start Date 09/12/17 Start Time 23:15 End Date 09/13/17 End time 09:57 Total Infusion Time 642 Sodium Chloride (Sodium Chloride 0.9%) 1,000 mls @ 75 mls/hr IV .U01L58H [facility] Last Admin: 09/13/17 21:15 Dose: 75 mls/hr eMAR Start Stop Document 09/13/17 21:15 ZARAL (Rec: 09/13/17 21:15 ZARAL [id number]) Intravenous Solution Start Date 09/13/17 Start Time 09:15 <Wander Montilla - Last Filed: 09/12/17 23:16> - PA / STRETCH BOX TENDER / Resident Statement / has reviewed & agrees with the documentation as recorded. MD/ has examined the patient and agrees with the treatment plan. - Scribe Statement The provider has reviewed the documentation as recorded by the Scribe <Slim Vaz - Last Filed: 09/15/17 04:26> - Scribe Statement Analilia Yang Provider Scribe Attestation: All medical record entries made by the Scribe were at my direction and personally dictated by me. I have reviewed the chart and agree that the record accurately reflects my personal performance of the history, physical exam, medical decision making, and the department course for this patient. I have also personally directed, reviewed, and agree with the discharge instructions and disposition. (Slim Vaz) Disposition/Present on Arrival - Present on Arrival Any Indicators Present on Arrival: No History of DVT/PE: No History of Uncontrolled Diabetes: No Urinary Catheter: No History of Decub. Ulcer: No History Surgical Site Infection Following: None - Disposition Have Diagnosis and Disposition been Completed?: Yes Disposition Time: 23:17 <Wander Montilla - Last Filed: 09/12/17 23:16> <Slim Vaz - Last Filed: 09/15/17 04:26> - Disposition Diagnosis: Hypotension Disposition: HOSPITALIZED Patient Problems: Current Active Problems Problem Status Onset Hypotension Acute Condition: STABLE
[2017-09-12] MEDS ORDERED: Dextrose 5%/0.45% NS 1,000 ML IV SCH (22:30)
--- NOTE | 2017-09-13 00:13 | CT ---
EXAM: CT Abdomen and Pelvis Without Intravenous Contrast EXAM DATE/TIME: 09/12/2017 9:27 PM CLINICAL HISTORY: 36 years old, male; Pain; Abdominal pain; Acute TECHNIQUE: Axial computed tomography images of the abdomen and pelvis without intravenous contrast. All CT scans at this facility use one or more dose reduction techniques, viz.: automated exposure control; ma/kV adjustment per patient size (including targeted exams where dose is matched to indication; i.e. head); or iterative reconstruction technique. Coronal and sagittal reformatted images were created and reviewed. COMPARISON: CT - ABD PELVIS W/O PO OR IV CONT 2017-08-24 13:05 FINDINGS: Lower thorax: The heart is enlarged. There is scarring greatest at the left base. There is groundglass opacity at the right base. There is a small defect in the posterior right hemidiaphragm with herniation of retroperitoneal fat. ABDOMEN: Liver: The liver is mildly enlarged. Gallbladder and bile ducts: Gallbladder is absent. Common duct is unremarkable. Pancreas: Pancreas is mildly atrophic. Spleen: Spleen is mildly enlarged Adrenals: Right adrenal is unremarkable. There is nodular thickening of the left adrenal. Kidneys and ureters: Right kidney and ureter are unremarkable. There is left perinephric inflammation and edema, decreased since the prior study. There is a left renal cyst with a layering of stones and or gravel, unchanged. There is been interval decrease in size of the left perinephric collection. There is been interval placement of a left ureteral stent. Left UPJ stone seen on the prior study is now in the lower pole calyx. Stone measures approximately 1.8 cm in maximal dimension. There is mild pelvocaliectasis. There is been placement of a left ureteral stent. Proximal loop of the stent is in the renal pelvis. Distal loop is in the bladder. Stomach and bowel: Stomach is almost empty. Rotation is normal. There is no obstruction. Ileocecal region is unremarkable. Appendix and terminal ileum are unremarkable. Colon is incompletely distended which limits evaluation. There is diverticulosis. Appendix: See stomach and bowel PELVIS: Bladder: unremarkable Reproductive: Seminal vesicles and prostate are unremarkable. ABDOMEN and PELVIS: Intraperitoneal space: There is no free air. Retroperitoneal space: There is inflammation and edema in the left retroperitoneum. There is mild enlargement of the left psoas muscle. Bones/joints: There are degenerative changes in the osseous structures. Soft tissues: See above. Vasculature: Vascular structures are unremarkable. Lymph nodes: There is shotty adenopathy. IMPRESSION: Interval placement of a left ureteral stent, decrease in inflammation and edema and perinephric fluid compared to the prior study, proximal left ureteral stone seen on the prior study is now in the lower pole calyx; persistent cyst with layering stones and/or milk of calcium Additional findings as described above.
[2017-09-13 01:23] LABS: URINE BILIRUBIN SMALL (NEGATIVE); URINE BLOOD LARGE (NEGATIVE); URINE GLUCOSE (UA) NEGATIVE (NEGATIVE); URINE KETONE TRACE mg/dL (NEGATIVE); URINE LEUKOCYTE ESTERASE LARGE Leu/uL (NEGATIVE); URINE PROTEIN >=300 mg/dL (<30 mg/dL)
[2017-09-13 01:25] LABS: URINE APPEARANCE CLOUDY (CLEAR); URINE COLOR BROWN (YELLOW)
[2017-09-13 01:30] LABS: URINE BACTERIA MANY (NEG); URINE EPITHELIAL CELLS 0 - 2 /hpf (0-5); URINE WBC TNTC /hpf (0-6)
--- NOTE | 2017-09-13 04:10 | HP ---
HISTORY OF PRESENT ILLNESS: The patient is a 36-year-old known to me from multiple previous admissions. The patient was seen in office earlier. He was complaining of feeling very weak and dizzy. He was seen in the office, his blood pressure was 75/55 in office, so I called ambulance and he was brought to emergency room because of symptomatic hypotension. He complains of left flank pain, complain of abdominal discomfort, complain of nausea, and did not have fever or chills. Does complain of hematuria. PAST MEDICAL HISTORY: Significant for: 1. Nonischemic cardiomyopathy. 2. History of heavy alcohol abuse. 3. The patient had nonischemic cardiomyopathy. 4. Chronic pancreatitis and still get intermittent recurrent pancreatitis. He has celiac nerve block earlier this year with some relief. 5. Nephrolithiasis. 6. Status post left hydronephrosis and has ureteral stent place with significant relief, status post acute renal failure, but resolved. 7. Recent admission for Klebsiella pneumoniae UTI. He was admitted on 08/22/2017 for urosepsis. 8. Paroxysmal AFib. 9. Congestive heart failure. 10. Morbid obesity. PAST SURGICAL HISTORY: Significant for: 1. Recent stent placement. 2. Status post cholecystectomy. ALLERGIES: HE IS ALLERGIC TO LUZ INHIBITORS, GOT LIP SWELLING. MEDICATIONS AT HOME: He is on Lasix 40 mg twice a day, Pepcid 20 mg daily, Coreg 12.5 twice a day, and Eliquis 2.5 b.i.d. He is on Pancrease enzyme, he was on Diovan 320 daily, but it was recently . SOCIAL HISTORY: He is single, still occasionally smokes and only socially drink here and there, although he used to be heavy smoker and heavy drinker. REVIEW OF SYSTEMS: Generalized weakness, no energy, and loss of appetite. PHYSICAL EXAMINATION: GENERAL: He is lethargic. VITAL SIGNS: He is afebrile, pulse 101, respirations 18, and blood pressure 82/41. LUNGS: Bilateral soft crackle at bases more pronounced posteriorly. HEART: S1 and S2 audible. ABDOMEN: Soft and nontender. No rebound. No guarding. NEUROLOGIC: The patient is awake, alert, oriented, and communicative. EXTREMITIES: Bilateral leg +2 edema. LABORATORY DATA: Sodium 135, potassium 5.3, chloride 96, CO2 of 26, BUN 46, creatinine 4.0 and blood sugar of 110. LFT's are within normal limits. BNP 1240. WBC is 20.5, hemoglobin 12, hematocrit 37, and platelet of 272. PT 16.2 and INR 1.47. Chemistry as above. X-ray of the chest mild venous congestion. ASSESSMENT: 1. Symptomatic hypotension. 2. Acute kidney injury. 3. Recurrent pancreatitis. 4. Left ureteral stent placement. 5. Hematuria. 6. Hyperkalemia. PLAN: We will start the patient on IV fluids. Continue him on Eliquis. I will give him one dose of vancomycin and Zosyn was given. Blood culture and urine cultures are sent. ID consult by Dr. Maria, Cardiology consult by Dr. Thomson, and Renal consult by Dr. Don has been requested. We will follow up CBC and CMP in a.m. Sammy Santiago MD
[2017-09-13] MEDS: HYDROmorphone 1 mg/ml ISec IVP PRN ×3 (05:12→13:11)
[2017-09-13 07:01] LABS: ALB/GLOB RATIO 0.9 (1.1-1.8); BASO # 0.02 K/mm3 (0.0-2.0); BASO % 0.1 % (0.0-3.0); BILIRUBIN,TOTAL 0.6 mg/dL (0.2-1.3); CALCIUM 8.8 mg/dL (8.4-10.5); EOS # 0.5 (0.0-0.7); EOS % 3.2 % (1.5-5.0); GRAN # 10.59 (1.4-6.5); GRAN % 61.9 % (50.0-68.0); HEMATOCRIT 32.6 % (42.0-52.0); LYMPH # 2.8 (1.2-3.4); LYMPH % 16.4 % (22.0-35.0); MEAN CELL VOLUME 97.9 fl (80.0-105.0); MEAN CORPUSCULAR HEMOGLOBIN 30.9 pg (25.0-35.0); MEAN CORPUSCULAR HGB CONC 31.6 g/dl (31.0-37.0); MEAN PLATELET VOLUME 9.7 fl (7.0-11.0); MONO # 3.1 (0.1-0.6); MONO % 18.4 % (1.0-6.0); POTASSIUM 4.7 mmol/L (3.6-5.0); RED CELL DISTRIBUTION WIDTH 14.8 % (11.5-14.5); TOTAL PROTEIN 7.5 g/dL (5.8-8.3); WHITE BLOOD COUNT 17.1 10^3/ul (4.5-11.0)
[2017-09-13] MEDS ORDERED: Amylase/Lipase/Protease 5,000 Units ECC PO SCH (07:30)
--- NOTE | 2017-09-13 08:26 | RAD ---
HISTORY: Sepsis Patient COMPARISON: 08/26/2017 FINDINGS: LUNGS: There is vascular congestion and interstitial congestion. There is no focal consolidation PLEURA: No significant pleural effusion identified, no pneumothorax apparent. CARDIOVASCULAR: Moderate to severe cardiomegaly OSSEOUS STRUCTURES: No significant abnormalities. VISUALIZED UPPER ABDOMEN: Normal. OTHER FINDINGS: None. IMPRESSION: Vascular and interstitial congestion. No focal consolidation
[2017-09-13] MEDS: Sodium Chloride 0.9% 1,000 ML IV SCH ×2 (09:58→21:15)
[2017-09-13] MEDS ORDERED: Amylase/Lipase/Protease 5,000 Units ECC PO ONE (11:53)
--- NOTE | 2017-09-13 15:12 | PN ---
DATE: 09/13/2017 SUBJECTIVE: The patient is a 36 years old, seen and examined, lying in bed, seems to be comfortable, complaining of shortness of breath on walking, complaining of generalized weakness. No nausea, vomiting. No diarrhea. OBJECTIVE: VITAL SIGNS: Afebrile, pulse 82, respirations 18, blood pressure 107/63. LUNGS: Bilateral fair air flow. Soft crackles scattered posteriorly. HEART: S1, S2 audible. ABDOMEN: Soft, obese, nontender. No rebound, no guarding. NEUROLOGIC: The patient is awake, alert, oriented, communicative. EXTREMITIES: Bilateral leg +2 edema. Complaining of left leg pain. LABORATORY DATA: WBC 17.1, hemoglobin 10.3, hematocrit 32.6, platelet 231. Chemistries: Sodium 133, potassium 4.7, chloride 99, CO2 of 23, BUN 52, creatinine 4.4, blood sugar of 112, BNP 1240. CT scan of the abdomen and pelvis without contrast shows left ureteral stents, decrease in inflammation and edema and perinephric fluid compared to the prior study. 12 mm left ureteral stone seen on the prior studies now in the lower pole of the calyx. ASSESSMENT: 1. Acute on chronic renal failure, probably acute tubular necrosis. 2. Global hypotension. 3. Brief episode of atrial fibrillation on last admission. 4. Non-ischemic cardiomyopathy. 5. Recurrent pancreatitis. 6. Left nephrolithiasis, hydronephrosis, status post ureteral stent placement. PLAN: The patient has been started on meropenem. Continue him on Eliquis. Continue him on IV fluid. Monitor his CBC and CMP. Sammy Santiago MD
[2017-09-13] MEDS: Amylase/Lipase/Protease 5,000 Units ECC PO SCH (17:46)
[2017-09-13] MEDS: HYDROmorphone 2 mg/ml ISec IVP PRN ×2 (17:47→21:24)
--- NOTE | 2017-09-13 18:37 | CON ---
DATE: 09/13/2017 The patient is seen in room 371, bed 1. CHIEF COMPLAINT: Weakness and generalized aches and pains times several days. HISTORY OF PRESENT ILLNESS: This is a 36-year-old male with morbid obesity with a BMI of 55 with a history of hypertension; history of alcoholic cardiomyopathy; pancreatitis; diverticulitis; kidney stones; renal failure; hydronephrosis; recent hospitalization with left-sided pyelonephritis with Klebsiella urinary tract infection, had a stent which was removed, and had a repeat cystoscopy with a new stent placement, admitted through the emergency room because the patient was seen by in the emergency room. In the emergency room, the patient was found to be dizzy and lightheadedness and with cardiomyopathy with ejection of 40%, chronic pancreatitis, morbid obesity, hydronephrosis and urinary tract infection, and the patient was found to be hypotensive and admitted. Infectious Disease consultation requested. The patient did have low grade fevers, occasional chills, has abdominal discomfort, and the patient also with mild nausea. He did not have any vomiting. No rash. No new joint pain. No shortness of breath. PAST MEDICAL HISTORY: Significant for morbid obesity, BMI of 55, pancreatitis, hypertension, alcoholic cardiomyopathy, diverticulitis, kidney stones, hydronephrosis, recent hospitalization with left-sided pyelonephritis, had a new pigtail ureteral stent. The patient did have a Klebsiella urinary tract infection and found to have left-sided pyelonephritis and had cystoscopy. PAST SURGICAL HISTORY: Significant for cholecystectomy, and the patient did have a ureteral stent in the past and removal of that. ALLERGIES: THE PATIENT IS ALLERGIC TO LUZ INHIBITORS. MEDICATIONS AT HOME: Reviewed include Dilaudid; Lasix; Pepcid; Carvedilol; Eliquis; Diovan; Spironolactone. PHYSICAL EXAMINATION: GENERAL/VITAL SIGNS: He is in bed, appearing well, frustrated by his illness with a temperature of 98, blood pressure was 82/41, it is up to 106; and a pulse of 101, it is down to 83; and respiratory rate of 18. HEENT: Examination of HEENT is unremarkable. NECK: Supple. LUNGS: Have decreased breath sounds. HEART EXAM: Normal S1 and S2. ABDOMEN: Emanation is soft, nontender. No organomegaly. No rebound. No guarding. No masses. LABORATORY EXAMINATION: Reveals a white count of 20,000, hemoglobin of 12, platelets of 272, and differential is 73% granulocytosis. Coagulation is noted. Blood gases are noted. Chemistries reveal a BUN of 46, creatinine of 4.0. The BNP is 1240. Lipase is 91. Urinalysis reveals too numerous to count wbc's, many bacteria, ketones, greater than 300 protein, positive nitrites, large leukocyte esterase. His toxicology reveals urine to have opiates screen is positive. Microbiology is pending. Blood cultures are pending. Urine cultures are pending. ASSESSMENT AND PLAN: This is a 36-year-old morbidly obese male with a BMI of 55, pancreatitis, hypertension, alcoholic cardiomyopathy, diverticulitis, kidney stone and hydronephrosis, recent hospitalization with left pyelonephritis with ureteral stent and had Klebsiella urinary tract infection, now is admitted with hypotension, tachycardia, white count of 20,000 with dysuria. 1. Severe sepsis with hypotension with urine as the source with acute kidney injury. The patient's creatinine upon discharge and last admission was 1.5, now it is up to 4.4, must rule out infection of the underlying stent in the urine. We will start the patient empirically on meropenem, pending blood cultures and urine cultures, the patient was given a dose of vancomycin and Zosyn in the emergency room. I will make further recommendations upon availability of initial cultures. The patient did have an HIV test on August 29, 2017, which was nonreactive. Roland Maria MD
--- NOTE | 2017-09-13 19:21 | CON ---
DATE: 09/13/2017 CONSULT SERVICE: Cardiology. REASON FOR CONSULTATION: Followup hypotension, dizzy, weakness, morbid obesity, and nonischemic cardiomyopathy. BRIEF CLINICAL HISTORY: This is a 36-year-old male with past medical history significant for nonischemic cardiomyopathy, history of heavy alcohol abuse, history of recurrent pancreatitis, who recently discharged, was seen yesterday, went to see Dr. Santiago, complaining for the dizzy. Blood pressure found in the 75/55, so Dr. Santiago called the ambulance and transferred here. The patient denies any chest pain. Denies any palpitation, but complaining of dyspnea on exertion, walks 2 blocks and gets short of breath. History of paroxysmal atrial fibrillation. PAST MEDICAL HISTORY: Significant for hypertension, morbid obesity, congestive heart failure secondary to alcohol abuse in the past, history of nonischemic cardiomyopathy, status post cardiac catheterization; recurrent pancreatitis, history of renal colic. PREVIOUS CARDIAC WORKUP: The patient had a cardiac catheterization 2 to 3 years ago at [facility], was told to have normal coronaries. SOCIAL HISTORY: He used to drink heavy alcohol, but claims that he has stopped it. History of tobacco abuse. History of multiple admissions with pancreatitis secondary to alcohol abuse. The patient's last echocardiography done on 08/05/2017, that showed ejection fraction 40%, RV systolic pressure of 18, trace mitral regurgitation, trace tricuspid regurgitation, moderately dilated ventricle. Echo was last month, 08/05/2017. MUGA showed ejection fraction 55%, dated 08/04/2017. REVIEW OF SYSTEMS: As per HPI. PHYSICAL EXAMINATION: VITAL SIGNS: Temperature afebrile, heart rate 87, and blood pressure 107/63. HEENT: PERRLA. Extraocular muscles intact. NECK: Supple. No carotid bruits. No thyromegaly. CHEST: Clear to auscultation. HEART: S1 and S2, regular. ABDOMEN: Soft. EXTREMITIES: Clubbing and cyanosis negative. LABORATORY DATA: Blood workup as follows: WBC 17.1, hemoglobin 10.3, hematocrit 32.6, and platelet count 231. Chemistry shows sodium 130, potassium 4.2, chloride 99, carbon dioxide 23, anion gap of 16, BUN of 54, and creatinine 4.4. BNP 1240. IMPRESSION: Acute kidney injury on chronic renal insufficiency, baseline creatinine 1.5, rule out sepsis; WBC elevated; history of recurrent pancreatitis; history of alcohol abuse; history of tobacco abuse; morbid obesity; increased body mass index of more than 400 pounds weight; nonischemic cardiomyopathy; dilated heart. Last echo showed ejection fraction of 40%. Last MUGA scan showed ejection fraction preserved to 55%. Last echo showed 40%. RECOMMENDATIONS: Rodriguez culture, give IV fluid, though BNP is elevated, but the patient is . Clinically, the patient is not in failure. The patient has acute kidney injury, monitor electrolytes. We will follow with you. Thank you Dr. Santiago for providing us the opportunity in taking care of the patient, Gareth Leblanc. The patient was at home on Dilaudid, Lasix, carvedilol, and Eliquis for paroxysmal atrial fibrillation. We will resume the medication, but we will give the IV fluid. Resume Eliquis for paroxysmal atrial fibrillation. Hold Lasix, hold Coreg. Once the patient is improved, then we will re-institute baseline medications. Shayna Thomson MD
--- NOTE | 2017-09-13 23:57 | CON ---
DATE: 09/13/2017 REASON FOR CONSULTATION: Acute kidney injury, pyuria, and flank pain. HISTORY OF PRESENT ILLNESS: A 36-year-old male known to me from outpatient evaluation, prior hospital evaluation. The patient was seen in the office on Monday. He was complaining of left-sided abdominal pain. He was complaining of dyspnea on exertion. Shortness of breath. He was found to have blood pressure of 110/80. His Diovan was discontinued. Subsequently, he went to his PMD yesterday because of pain. He has pressure was 75/40, he was diaphoretic. He was sent to the emergency room. In the emergency room, once again his pressure was found to be 82/41. He was tachycardic with a heart rate of 101. He was found to have elevated creatinine of 4.0 and potassium of 5.3. Hence, he was admitted for probable sepsis, hypotension, acute kidney injury, likely source . His creatinine on Monday was 2.6 as outpatient. PAST MEDICAL AND SURGICAL HISTORY: Severe hypertension, hypertensive heart disease, left ventricular hypertrophy, recent left pyelonephritis, obstructive uropathy, left ureteral stent placement, atrial fibrillation, acute kidney injury, underlying chronic kidney disease stage II/III, morbid obesity. FAMILY HISTORY: Hypertension. SOCIAL HISTORY: No smoking, positive alcohol use, no IV drug abuse, pain medication dependence. ALLERGIES: LUZ INHIBITORS. HOME MEDICATIONS: Lasix 40 b.i.d., Pepcid 20, Coreg 12.5 b.i.d., Eliquis 2.5 b.i.d., Dilaudid, and Aldactone 25 b.i.d. Diovan was discontinued on Monday. REVIEW OF SYSTEMS: All systems are reviewed, the patient complains of left flank pain. He complains of left-sided abdominal pain. He complains of diaphoresis. He complains of shortness of breath. He complains of fatigue. All other systems are reviewed and unremarkable. PHYSICAL EXAMINATION: GENERAL: Young male lying in bed, in [id number] distress. VITAL SIGNS: Blood pressure 107/63, heart rate 87, respiratory rate 18, and temperature 98. HEENT: Normocephalic, atraumatic, positive pallor. NECK: Supple, no JVD. LUNGS: Bilateral equal entry, bilateral equal expansion, no rales. CARDIAC: S1 and S2, regular rate and rhythm. No murmur, no rub. ABDOMEN: Obese, distended, soft, positive left flank tenderness. Bowel sounds present. EXTREMITIES: Trace lower extremity edema. INTAKE AND OUTPUT: 360/100. LABORATORY DATA: WBC 17, hemoglobin 10, hematocrit 33, platelets 231. Sodium 133, potassium 4.7, chloride 99, CO2 of 23, BUN 52, creatinine 4.4, glucose 112, calcium 8.8, albumin 3.5. Urinalysis; brown, cloudy, pH 6.0, specific gravity 1.025, protein more than 300, trace ketones, blood large, nitrite positive, leukocyte esterase large, wbc's too numerous to count. Urine toxicology, positive for opiates. INR 1.4. Urine culture pending. CT of the abdomen; left perinephric inflammation and edema, although decreased from prior study; left renal cyst, left ureteral stent; 1.8 cm stone in the left lower pole jaswinder; mild pelvicaliectasis; layering stones and/or milk of calcium. CURRENT MEDICATIONS: Dilaudid, Eliquis, meropenem 250 q.12, Pancrease, Pepcid, and normal saline at 75. ASSESSMENT AND PLAN: 1. Acute kidney injury in the setting of sepsis, hypotension, leukocytosis, and pyuria. 2. Acute tubular necrosis secondary to sepsis and hypotension. 3. Left pyelonephritis . 4. Recent left ureteral stent placement. 5. Morbid obesity. 6. Recent atrial fibrillation in the setting of sepsis. PLAN: 1. Agree with IV fluid resuscitation for the time being. 2. Empiric antibiotics to cover for left pyelonephritis. 3. Urgent Urology evaluation for possible removal of left ureteral stent. 4. Close monitoring of hemodynamic status, volume status. 5. IV antibiotics as per ID recommendations. 6. Dose all antibiotics for creatinine clearance about 30 mL/minute for the time being. Thank you for the courtesy of this consultation. We will follow this patient closely with you. Angelica Don MD
--- NOTE | 2017-09-14 00:15 | CARD ---
APPROVED REPORT EKG Measurement Heart [id number] <Conclusion> Normal sinus rhythm Voltage criteria for left ventricular hypertrophy Nonspecific ST and T wave abnormality Abnormal ECG
[2017-09-14] MEDS: HYDROmorphone 2 mg/ml ISec IVP PRN ×6 (01:28→21:31)
[2017-09-14 07:46] LABS: EOS # 0.5 (0.0-0.7); EOS % 4.7 % (1.5-5.0); GRAN # 6.33 (1.4-6.5); GRAN % 63.7 % (50.0-68.0); HEMATOCRIT 32.6 % (42.0-52.0); LYMPH # 1.7 (1.2-3.4); MEAN CELL VOLUME 96.4 fl (80.0-105.0); MEAN CORPUSCULAR HEMOGLOBIN 31.7 pg (25.0-35.0); MEAN CORPUSCULAR HGB CONC 32.8 g/dl (31.0-37.0); MEAN PLATELET VOLUME 9.7 fl (7.0-11.0); MONO # 1.5 (0.1-0.6); MONO % 14.6 % (1.0-6.0); RED CELL DISTRIBUTION WIDTH 14.2 % (11.5-14.5); WHITE BLOOD COUNT 9.9 10^3/ul (4.5-11.0)
[2017-09-14 08:24] LABS: ALB/GLOB RATIO 0.9 (1.1-1.8); BILIRUBIN,TOTAL 0.4 mg/dL (0.2-1.3); CALCIUM 9.1 mg/dL (8.4-10.5); MAGNESIUM 2.2 mg/dL (1.7-2.2); PHOSPHOROUS 3.8 mg/dL (2.5-4.5); POTASSIUM 4.7 mmol/L (3.6-5.0); TOTAL PROTEIN 7.7 g/dL (5.8-8.3)
[2017-09-14] MEDS: Amylase/Lipase/Protease 5,000 Units ECC PO SCH ×3 (08:31→17:05)
--- NOTE | 2017-09-14 14:02 | PN ---
DATE: 09/14/2017 SUBJECTIVE: The patient is seen sitting in bed. He is awake, he is alert. He reports that he is somewhat better. He reported he is urinating more. PHYSICAL EXAMINATION: GENERAL: Young obese male sitting in bed. VITAL SIGNS: Blood pressure 99/58, heart rate 75, respiratory rate 18, temperature 98. HEENT: Normocephalic, atraumatic. NECK: Supple, no JVD. LUNGS: Bilateral equal entry, no rales. CARDIAC: S1, S2. Regular rate and rhythm, no murmur, no rub. ABDOMEN: Obese, distended, soft, positive tenderness in the right lower quadrant, left flank tenderness. EXTREMITIES: 1+ pitting edema of the lower extremities. INTAKE AND OUTPUT: [id number]. LABORATORY DATA: WBC 9.9, hemoglobin 10.7, hematocrit 33, platelets 228. Sodium 134, potassium 4.7, chloride 102, CO2 24, BUN 39, creatinine 2.7, glucose 105, calcium 9.1, phosphorus 3.8, magnesium 2.2, A1c 6.3, albumin 3.5. TSH 0.34. Blood culture, no growth. Urine culture, not seen. CURRENT MEDICATIONS: Dilaudid, Eliquis, meropenem 250 q. 12 h., Pancrease, Pepcid, normal saline at 75. ASSESSMENT AND PLAN: 1. Acute kidney injury superimposed on chronic kidney disease stage III, resolving. 2. Leukocytosis, pyuria, hypotension, acute kidney injury, systemic inflammatory response syndrome. 3. History of hypertension, currently hypotensive. 4. Recent atrial fibrillation, on anticoagulation. 5. Morbid obesity. 6. Recent left pyelonephritis with obstructive calculus, status post recent ureteral stent. PLAN: 1. Discontinue IV fluids. The patient has cardiomyopathy, currently blood pressure is stable. Will discontinue IV fluids and let the patient drink ad isai. 2. Continue IV antibiotics as per ID recommendations. 3. Follow up urine culture, do not see results. 4. Long discussion with Dr. Lange, at this time since CT scan shows no obstruction, no indication for any kind of intervention. Removal of stent not necessary. Removal of stent may lead to obstructive uropathy again. Patient is too big to undergo any kind of stone extraction procedure. Continue antibiotics and treat UTI. The patient may be slightly more prone to get UTI because of the stent because of reflux. 5. Continue to hold all antihypertensives. Past medical, surgical history, family history, social history, review of systems all reviewed and unchanged except as mentioned above. Angelica Don MD
--- NOTE | 2017-09-14 18:49 | PN ---
DATE: SUBJECTIVE: The patient is a 36 years old, seen and examined. He states he feels little better. Complain of leg swelling. Complain of shortness of breath. His flank pain seems to be little better. PHYSICAL EXAMINATION: VITAL SIGNS: The patient is afebrile, pulse 75, respirations 18, blood pressure 99/58. LUNGS: Bilateral fair air flow. Decreased at bases. HEART: S1, S2 audible. ABDOMEN: Soft, nontender, and obese. No hepatosplenomegaly. NEUROLOGIC: He is awake, alert, communicative. EXTREMITIES: Bilateral leg +1 edema. LABORATORY DATA: WBC is 9.9, hemoglobin 10.7, hematocrit 32.6, platelet 228. Chemistries: Sodium 134, potassium 4.7, chloride 102, CO2 of 24, BUN 39, creatinine 2.7, and blood sugar of 105. His blood cultures are negative. Urine is pending. ASSESSMENT: 1. Acute on chronic congestive heart failure and systolic. 2. Non-ischemic cardiomyopathy. 3. Acute on chronic renal failure. 4. Nephrolithiasis. 5. Paroxysmal atrial fibrillation. 6. Recurrent pancreatitis. PLAN: Currently, the patient is on Eliquis; although, he is in sinus rhythm. I will discuss with Tile Shader, will need to continue on that. Continue on meropenem. Follow up blood and urine culture. Discuss with Dr. Lange. The patient does have stone in his left ureter above the stent; however the stent is functioning, because of the patient's morbidity, he is above the limit for lithotripsy. I also spoke to Dr. Lange, he might need to be refer to Tertiary Care Unit since his situation is getting complicated. He is getting congestive heart failure and he has morbid obesity; during procedure, he can develop hypoxia and might need intubation. He has multiple organs involved that need to be taken care in Tertiary Care Unit. Dr. Lange will provide me the Urologist, who can manage his case. We will follow up on that. Sammy Santiago MD
--- NOTE | 2017-09-14 20:23 | PN ---
DATE: 09/14/2017 REASON FOR CONSULTATION AND FOLLOWUP: Hypotension, dizzy, weakness, morbid obesity, nonischemic cardiomyopathy, worsening acute kidney injury. SUBJECTIVE: The patient denies any chest pain, shortness of breath or any palpitation, feels a little better, but no more dizziness. PHYSICAL EXAMINATION: As follows: VITAL SIGNS: Temperature afebrile, heart rate 75 and blood pressure 99/58. HEENT: PERRLA. Extraocular muscles intact. NECK: Supple. No carotid bruits. No thyromegaly. CHEST: Clear to auscultation. HEART: S1 and S2, regular. ABDOMEN: Soft. EXTREMITIES: Clubbing and cyanosis negative. LABORATORY DATA: Blood workup as follows: WBC 9.9, hemoglobin 10.3, hematocrit 32.6 and platelet count 228. Chemistry shows sodium 134, potassium 4.0, chloride 102, carbon dioxide 24, anion gap of 13, BUN of 39 and creatinine 2.7. IMPRESSION: This is a 36-year-old male with past medical history significant for nonischemic cardiomyopathy, morbid obesity, heavy alcohol abuse, history of pancreatitis in the past, history of tobacco abuse admitted with low blood pressure with multifactorial secondary to antihypertensive medications, due to acute kidney injury. The patient responded significantly with the fluid, now creatinine is trending down. Yesterday, it was 4.4, today is 2.2. MUGA scan last showed ejection fraction of 55% dated 08/04/2017, nonischemic cardiomyopathy, history of cardiac catheterization 2 years ago at [facility] and no significant disease. RECOMMENDATIONS: I will give IV fluid, resume Eliquis, renally adjusted dose, hold Lasix, hold Coreg. Once the patient improved, we will reinstitute medications. Also, it is important the patient is taking high doses of valsartan, Diovan 320 mg that would cause the patient to further precipitate him into hypotension and acute kidney injury. We will reinstitute gentle antihypertensive medications once the patient became euvolemic and the blood pressures goes up, for now does not need any antihypertensive medication, continue gentle hydration. Followup electrolytes and continue renally adjusted Eliquis. We will repeat the blood workup in the morning. We will avoid high doses of ARB until really the patient becomes hypertensive. We will follow with you. Thank you Dr. Santiago for providing us the opportunity in taking care of the patient, Gareth Leblanc. Shayna Thomson MD
--- NOTE | 2017-09-14 21:05 | PN ---
DATE: 09/14/2017 SUBJECTIVE: The patient is in bed, in no acute distress, nontoxic. No fevers and chills. OBJECTIVE: VITAL SIGNS: On exam, the patient's temperature is 98, blood pressure is 120/70, respiratory rate of 16. HEENT: Examination of HEENT is unremarkable. NECK: Supple. LUNGS: Have decreased breath sounds. HEART: Exam shows normal S1 and S2. ABDOMEN: Examination is soft, nontender. LABORATORY EXAMINATION: Reveals a white count of 9.9, hemoglobin of 10, platelets of 228. Chemistries reveal the BUN of 39, creatinine of 2.7. Urinalysis is noted and toxicology is noted. Microbiology reveals the blood cultures have no growth. Urine cultures have gram-negative rei, identification and sensitivity is pending. Review of orders reveal that the patient to be on meropenem. ASSESSMENT AND PLAN: This is a 36-year-old male with morbid obesity, BMI of 55, history of pancreatitis, hypertension, alcoholic cardiomyopathy, diverticulitis, kidney stone, hydronephrosis, recent hospitalization with left pyelonephritis and ureteral stent with Klebsiella urinary tract infection, admitted with hypotension, tachycardia, leukocytosis, dysuria. 1. Severe sepsis with gram-negative rei in the urine as the source of acute kidney injury, currently on meropenem. Renal function appears to be improving and we will follow closely with you. Pending identification of gram-negative rei and renal function. Roland Maria MD
[2017-09-15] MEDS: HYDROmorphone 2 mg/ml ISec IVP PRN ×6 (01:27→22:05)
--- NOTE | 2017-09-15 02:40 | CON ---
DATE: 09/14/2017 CHIEF COMPLAINT: History of left renal stone, hypotension. HISTORY OF PRESENT ILLNESS: This is a 36-year-old male, known to me. He is morbidly obese with BMI of 55 and weight in the past 440 pounds. He had a history of a left renal stone, which was obstructing his upper ureter. He had been septic with hypotension approximately 3-4 weeks ago. He also has a history of cardiomyopathy, chronic pancreatitis, and is on Eliquis. The stone was obstructing, and was treated with the stent placement on evening. His renal function improved down to baseline and was normal. The stone was not visible on KUBs in the past. In addition, he had been simulated at the stone center to see if they could see the stone also, and they could not, because his weight exceeded the gantry limit of the lithotripter at the stone center, should the stone even be visible. He comes in now after being in his LMD's office with blood pressure of 70. He was admitted with a white count of 20,000. Cultures were obtained. Blood cultures were negative. The preliminary urine has gram negative rei. He is on meropenem. His creatinine was 4 with BUN of 46. The BUN went up to 52 with the creatinine 4.4. Now with hydration, it is down to creatinine of 2.7 with the BUN of 39, expected to continue to come down. He has no fever or chills. White count is 9900. A CAT scan was done; and when compared to the CAT scan done prior to stent placement on , it has improved. There is less perinephric inflammation and edema. The stone is now seen in the lower pole calyx. A stent was properly placed, coiled in the pelvis and in the bladder. I reviewed the CAT scan. The etiology of the positive urine culture is possibly from reflux on the stenting in. I told the patient the stent cannot be removed, since when it was removed last time, the stone obstructed his ureter. I told him also, given his weight and other parameters, that I thought I would repeat a KUB and oblique to see if the stone is visible, but I felt in this case, the best attempt would be the flexible ureteroscopy with laser of the stone. Given his situation, I think this is beyond my skill level or my partner's skill level, and I referred him to Dr. Destiny Ellison, who is urologist at [facility], who has a speciality in renal and ureteral stones. I sent other patients to him and he has done their procedures expertly. PLAN: My recommendation is to continue hydration, his creatinine should come back to normal. When the pt is discharged he was told to make an appointment to see Dr. Ellison who then can electively do a ureteroscopy and hopefully laser the stone in the lower calyx of the kidney and then be able to remove the stent after a day or two. The patient is aware of the plan and is in agreement, and will follow up with him. Mr Leblanc was given Dr Ellison's office phone number and address Juan José Lange MD MTDD
[2017-09-15 07:10] LABS: BASO # 0.01 K/mm3 (0.0-2.0); BASO % 0.1 % (0.0-3.0); EOS # 0.3 (0.0-0.7); EOS % 2.4 % (1.5-5.0); GRAN # 7.79 (1.4-6.5); GRAN % 66.7 % (50.0-68.0); LYMPH # 1.9 (1.2-3.4); LYMPH % 16.6 % (22.0-35.0); MEAN CELL VOLUME 95.1 fl (80.0-105.0); MEAN CORPUSCULAR HEMOGLOBIN 30.5 pg (25.0-35.0); MEAN CORPUSCULAR HGB CONC 32.1 g/dl (31.0-37.0); MEAN PLATELET VOLUME 10.1 fl (7.0-11.0); MONO # 1.7 (0.1-0.6); MONO % 14.2 % (1.0-6.0); RED CELL DISTRIBUTION WIDTH 14.1 % (11.5-14.5); WHITE BLOOD COUNT 11.7 10^3/ul (4.5-11.0)
[2017-09-15 07:31] LABS: CALCIUM 9.3 mg/dL (8.4-10.5); PHOSPHOROUS 3.2 mg/dL (2.5-4.5); POTASSIUM 4.6 mmol/L (3.6-5.0)
[2017-09-15] MEDS: Amylase/Lipase/Protease 5,000 Units ECC PO SCH ×3 (08:14→16:12)
[2017-09-15] MEDS: cefTRIAXone 2 GM IN NS 2 GM/100 ML BAG IVPB SCH (10:29)
--- NOTE | 2017-09-15 12:31 | RAD ---
PROCEDURE: Multiple views abdomen HISTORY: see below COMPARISON: TECHNIQUE: Five views FINDINGS: There is a left-sided ureteral stent. There is a 9 mm stone in the lower pole of the left kidney. There are no stones seen along side the stent. IMPRESSION: As above
--- NOTE | 2017-09-15 12:51 | PN ---
DATE: 09/15/2017 REASON FOR CONSULTATION AND FOLLOWUP: Hypertension, weakness, morbid obesity, nonischemic cardiomyopathy, and worsening acute kidney injury. SUBJECTIVE: The patient denies any chest pain and denies shortness of breath at rest. He feels better, but gets short of breath on walking 2 blocks. OBJECTIVE/PHYSICAL EXAMINATION: As follows: GENERAL: Not in apparent distress. Lying flat on the bed. VITAL SIGNS: Temperature is afebrile, heart rate is 88, and blood pressure is 124/74. HEENT: PERRLA. Extraocular muscles are intact. NECK: Supple. No carotid bruit or thyromegaly. CHEST: Clear to auscultation. HEART: S1 and S2 regular. ABDOMEN: Soft. EXTREMITIES: Clubbing and cyanosis negative. LABORATORY DATA: Blood workup as follows: WBC of 11.3, hemoglobin of 10.3, hematocrit of 33.0, and platelet count of 287. Chemistry shows sodium of 130, potassium of 4.6, chloride of 90, carbon dioxide of 27, anion gap of 11, BUN of 31, and creatinine of 2.0. IMPRESSION: 1. Acute kidney injury with maximum creatinine of 4.4, now it is trending down. 2. Non-ischemic cardiomyopathy. 3. Hypotension on admission. 4. Sepsis. 5. History of alcohol abuse. 6. History of non-ischemic cardiomyopathy. 7. History of recurrent pancreatitis. 8. Noncompliance with the medication. 9. Last MUGA scan shows ejection fraction of 55%, dated 08/04/2017. 10. History of nonischemic cardiomyopathy, improved. 11. History of cardiac catheterization two years at [facility]. No significant coronary artery disease. RECOMMENDATIONS: Last MUGA scan admission dated 08/04/2017, ejection fraction of 55%. Last echocardiography on 08/05/2017 showed ejection fraction of 40%, trace mitral regurgitation, tricuspid regurgitation, poor study because of the body habitus, so MUGA scan was done. The patient was concerned that nobody is doing any echo test, I explained the patient that the patient had MUGA scan done and was normal a month ago. This hypotensive episode is probably secondary to noncompliance to medication. The patient was taking at home high dose valsartan and advised the patient not to take valsartan if the blood pressure remains stable. For now, continue Eliquis only 2.5 b.i.d. renal adjusted dose for paroxysmal atrial fibrillation. Off fluid, monitor electrolytes. If the renal function improves, the patient can be discharged home. Very cautiously re-institute water pills and LUZ and ARB depending upon the patient's blood pressure and renal function. I explained above to the patent in length. Probably the hypotensive episode is multifactorial secondary to sepsis as well as dehydration and medication, and acute kidney injury. The patient needs to compliance with the medication. Complete cessation of smoking and complete abstinence of alcohol. Shayna Thomson MD
--- NOTE | 2017-09-15 15:19 | PN ---
DATE: 09/15/2017 SUBJECTIVE: The patient is seen earlier this morning. Still complaining of generalized aches and pains, wants more pain medication. OBJECTIVE: VITAL SIGNS: On exam, temperature is 99, blood pressure is 120/70, respiratory rate of 20, heart rate of 91. HEENT: Unremarkable. NECK: Supple. LUNGS: Have decreased breath sounds. HEART: Normal S1, S2. ABDOMEN: Soft and nontender. LABORATORY EXAMINATION: Reveals a white count of 11,700, hemoglobin of 10, BUN of 31, creatinine of 2.0. Microbiology reveals the urine has Klebsiella pneumoniae species, this is from 09/13/2017, it is pansensitive. The patient is currently on meropenem. ASSESSMENT AND PLAN: A 36-year-old male with morbid obesity, BMI of 55; history of pancreatitis; hypertension; alcoholic cardiomyopathy; diverticulitis; kidney stones; hydronephrosis; recent hospitalization with left-sided pyelonephritis with left ureteral stent which was changed, has a new stent now with severe sepsis with Klebsiella pneumonia which is pansensitive, which is the same organism on 08/22 last month and the urine was also Klebsiella, pansensitive. We would discontinue the meropenem and use ceftriaxone 2 g q.24 hours to treat his pyelonephritis. Dr. Lange's note is reviewed. Roland Maria MD
--- NOTE | 2017-09-15 20:46 | PN ---
DATE: 09/15/2017 SUBJECTIVE: The patient is seen lying in bed. He is awake, he is alert. He reports feeling somewhat better, but he complains of being frustrated. He does not know or understand what is going on. PHYSICAL EXAMINATION: GENERAL: Morbidly obese, young male, lying in bed. VITAL SIGNS: Blood pressure 129/83, heart rate 82, respiratory rate 16, temperature 98.5. HEENT: Normocephalic, atraumatic. Neck: Supple, no JVD. LUNGS: Bilateral equal entry. No rales. CARDIAC: S1 and S2, regular rate and rhythm. No murmur. No rub. ABDOMEN: Obese, distended, soft, nontender, bowel sounds are present. EXTREMITIES: Trace lower extremity edema. INTAKE AND OUTPUT: 2160/2500. LABORATORY DATA: WBC 11.7, hemoglobin 10.6, hematocrit 33, platelets 287. Sodium 132, potassium 4.6, chloride 99, CO2 of 27, BUN 31, creatinine 2.0, glucose 130, calcium 9.3, phosphorus 3.2, magnesium 2.0. Urine culture, Klebsiella. CURRENT MEDICATIONS: Dilaudid, Eliquis, Pancrease, Pepcid, Rocephin 2 g daily, Zofran, meropenem 250 q. 12 discontinued. ASSESSMENT AND PLAN: 1. Acute kidney injury superimposed on chronic kidney disease stage 3, resolving acute kidney injury. 2. Klebsiella urinary tract infection. 3. Sepsis, status post hypotension, leukocytosis, acute kidney injury. 4. Recent obstructive uropathy/left hydronephrosis/left ureteral stent placement. 5. Morbid obesity. 6. Hypertension. 7. Left ventricular hypertrophy/cardiomyopathy. PLAN: 1. Push p.o. fluids. 2. Continue antibiotics as per ID recommendations. 3. Monitor urine output closely. 4. Monitor daily labs. 5. Continue Eliquis as per Cardiology. 6. Long discussion with Dr. Lange yesterday, no indication for removal of stent, possible referral to [place] for removal of stones. Angelica Don MD
[2017-09-16] MEDS: HYDROmorphone 2 mg/ml ISec IVP PRN ×3 (03:50→21:23)
[2017-09-16] MEDS: Amylase/Lipase/Protease 5,000 Units ECC PO SCH ×4 (08:30→17:29)
[2017-09-16 08:43] LABS: ALB/GLOB RATIO 0.9 (1.1-1.8); BILIRUBIN,TOTAL 0.5 mg/dL (0.2-1.3); CALCIUM 10.1 mg/dL (8.4-10.5); POTASSIUM 4.9 mmol/L (3.6-5.0); TOTAL PROTEIN 8.4 g/dL (5.8-8.3)
[2017-09-16] MEDS: cefTRIAXone 2 GM IN NS 2 GM/100 ML BAG IVPB SCH (10:18)
[2017-09-16] MEDS: HYDROmorphone 2 mg/ml ISec IVP SCH ×3 (13:12→21:19)
--- NOTE | 2017-09-16 18:34 | PN ---
DATE: 09/16/2017 SUBJECTIVE: The patient is seen lying in bed. He is awake, he is alert, and is comfortable. He complains of shortness of breath. PHYSICAL EXAMINATION GENERAL: Obese middle-aged male lying in bed. VITAL SIGNS: Blood pressure: 121/76, heart rate 78, respiratory rate 20, temperature 97.4. HEENT: Normocephalic, atraumatic, positive pallor. NECK: Supple, no JVD. LUNGS: Bilateral rhonchi, bilateral equal air entry, no rales. CARDIAC: S1 and S2. Regular rate and rhythm, no murmur, no rub. ABDOMEN: Obese, distended, soft, nontender, bowel sounds present. EXTREMITIES: Trace lower extremity edema. INTAKE AND OUTPUT: Not charted. LABORATORY DATA: Sodium 137, potassium 4.9, chloride 102, CO2 25, BUN 21, creatinine 1.7, glucose 113, calcium 10.1, albumin 3.9. Urine culture gram-negative rei. Urine culture, Klebsiella. CURRENT MEDICATIONS: Coreg 6.25 b.i.d., Dilaudid, Eliquis, Pancrease, Pepcid, Rocephin, and Zofran. ASSESSMENT: 1. Acute kidney injury superimposed on chronic kidney disease stage III, resolving. 2. Klebsiella urinary tract infection. 3. Recent pyelonephritis with obstructive uropathy, status post ureteral stent. 4. Morbid obesity. 5. Hypertension. 6. Resolving sepsis. PLAN: 1. Continue antibiotics as per ID recommendations. 2. Monitor daily labs. 3. Avoid nephrotoxins. 4. Continue to hold antihypertensives for the time being. Angelica Don MD
--- NOTE | 2017-09-16 20:35 | PN ---
DATE: 09/16/2017 LOCATION: The patient is in room 374, bed 2. REASON FOR CONSULTATION: Followup hypertension, weakness, morbid obesity, nonischemic cardiomyopathy, worsening acute kidney injury. SUBJECTIVE: The patient continue to complain of shortness of breath on exertion. Otherwise, had no chest pain or palpitation. PHYSICAL EXAMINATION VITAL SIGNS: Blood pressure 124/84, respirations 20, pulse 87, and temperature 97.4. HEENT: Head is normocephalic. Eyes; pupils are normal. Conjunctivae slightly pale. NECK: JVP is low. Carotids are equal. THORAX: AP diameter normal. LUNGS: No rales. CARDIOVASCULAR: S1 and S2. ABDOMEN: Mildly protuberant. No organomegaly. EXTREMITIES: No pitting edema lower legs. No clubbing. No cyanosis. LABORATORY DATA: WBC 11.7, hemoglobin 10.6, hematocrit 33.0, platelet 287. Sodium 137, potassium 4.9, BUN 21, creatinine 1.7, sugar 113, AST and ALT normal. Total protein 8.4, albumin 3.9. Previous cardiac workup, the patient states that 5 years ago approximately at [facility], he had cardiac cath and he was told that his heart is weak. The patient had echo on 08/05/2017, which showed LV ejection fraction of 40%, trace mitral regurg, tricuspid regurg, poor study because of body habitus. So, MUGA scan on 08/04/2017 showed LV ejection fraction of 55%. DIAGNOSES: Hypertensive episode probably secondary to noncompliance to medication, the patient also taking at home high dose of valsartan, morbid obesity, nonischemic cardiomyopathy, acute kidney injury, dehydration, hypertensive episode might be multifactorial, may be related to dehydration and medication, or sepsis. PLAN: The patient is very poor compliant with the medication. He advised to follow medication very regularly. The patient on Eliquis 2.5 b.i.d., 20 mg daily, Rocephin 2 g IV daily. We will restart Lasix 40 mg p.o. daily and Coreg 6.25 b.i.d., and will continue to hold valsartan and monitor blood pressure. LUZ inhibitor, we will add slowly later on. We will follow with you. Shayna Jay MD [facility] # [id number]
--- NOTE | 2017-09-16 22:12 | PN ---
SUBJECTIVE: Patient is 36 years old seen and examined, stated he has epigastric pain, he vomited this morning, seems to be doing little better. I am asking to decrease interval of his pain medication. PHYSICAL EXAMINATION VITAL SIGNS: Afebrile. Pulse 70, respirations 20, blood pressure 121/76. LUNGS: Bilateral good airflow. No rhonchi or crackle. HEART: S1 and S2, audible.. ABDOMEN: Soft, obese, nontender, no rebound, no guarding. NEUROLOGIC: Patient is awake and alert, communicative. LABORATORY DATA: WBC 11.7, hemoglobin 10.6, hematocrit 33, platelets 287. Chemistries, sodium 137, potassium 4.9, chloride 102, CO2 of 25, BUN 21, creatinine 1.7, blood sugar of 113. His urine culture is positive for Klebsiella and clean catch urine is positive for gram negative rods so far. ASSESSMENT: 1. Episode of hypotension causing acute kidney injuries, seems to be resolving. 2. Klebsiella urinary tract infection. 3. Recent left ureteral stent placement. 4. Morbid obesity. 5. Nonischemic cardiomyopathy. 6. Recurrent pancreatitis. PLAN: At this point, we will continue him on his Coreg, he is on Eliquis, IV fluid has been discontinued. Continue him on Rocephin, . We will follow up his CMP in a.m. to monitor his kidney function. He is advised to ambulate. I had a discussion with Dr. Lange. He is a candidate to be sent to tertiary care unit for intraureteral laser treatment for lithotripsy. Because of his morbid obesity, he is not a candidate for external lithotripsy. Sammy Santiago MD
[2017-09-17] MEDS: HYDROmorphone 2 mg/ml ISec IVP PRN ×6 (02:01→23:08)
--- NOTE | 2017-09-17 03:54 | PN ---
DATE: 09/16/2017 SUBJECTIVE: The patient is in bed, in no acute distress, nontoxic, and the patient is seen early this morning in room 374. PHYSICAL EXAMINATION: VITAL SIGNS: Temperature is 98, blood pressure is 120/80, and respiratory rate of 16. HEENT: Unremarkable. NECK: Supple. LUNGS: Decreased breath sounds. HEART: Normal S1 and S2. ABDOMEN: Soft, nontender. LABORATORY EXAMINATION: Reveals a white count of 11,700, hemoglobin of 10, platelets of 287. Chemistries reveal the patient has BUN of 21, creatinine of 1.7. Review of orders reveals the patient to be on ceftriaxone. We will follow closely with you. ASSESSMENT AND PLAN: This is a 36-year-old male with morbid obesity, BMI of 55, history of pancreatitis, hypertension, alcoholic cardiomyopathy, diverticulitis, kidney stone, hydronephrosis, recent hospitalization with left sided pyelonephritis with a left ureteral stent. There is no stent now, with severe sepsis with Klebsiella in the urine as a source, currently on ceftriaxone with the patient's condition improving p.o. Vantin, adjust this for renal dose and the blood cultures are reported negative. He is sent with ceftriaxone and p.o. Vantin to complete therapy since today his creatinine is down to 1.7. We will follow closely with you. Roland Maria MD
[2017-09-17 07:17] LABS: BILIRUBIN,TOTAL 0.4 mg/dL (0.2-1.3); POTASSIUM 4.8 mmol/L (3.6-5.0); TOTAL PROTEIN 8.8 g/dL (5.8-8.3)
[2017-09-17 08:23] LABS: ALB/GLOB RATIO 0.8 (1.1-1.8)
[2017-09-17] MEDS: Amylase/Lipase/Protease 5,000 Units ECC PO SCH ×3 (09:38→17:33)
[2017-09-17] MEDS: cefTRIAXone 2 GM IN NS 2 GM/100 ML BAG IVPB SCH (09:42)
--- NOTE | 2017-09-17 12:59 | PN ---
DATE: 09/17/2017 SUBJECTIVE: The patient is seen earlier, in no acute distress, nontoxic. PHYSICAL EXAMINATION: VITAL SIGNS: Temperature is 98, blood pressure is 117/70, respiratory rate of 16. HEENT: Unremarkable. NECK: Supple. LUNGS: Decreased breath sounds. HEART: Normal S1, S2. ABDOMEN: Soft, nontender. LABORATORY EXAMINATION: Reveals a white count of 17,000, hemoglobin of 10. Chemistries reveals a BUN of 21, creatinine of 1.7 and urinalysis is noted. Urine cultures show gram-negative rei, which is Klebsiella. It is pansensitive. CURRENT MEDICATIONS: Reveal the patient to be on ceftriaxone. ASSESSMENT AND PLAN: A 36-year-old with morbid obesity, body mass index of 55, history of pancreatitis, hypertension, alcoholic cardiomyopathy, diverticulitis, kidney stones, hydronephrosis, recent hospitalization with a left-sided pyelonephritis with a left ureteral stent, currently on ceftriaxone for severe sepsis with Klebsiella in the urine as the source. We will be able to switch to p.o. Vantin upon discharge. We will follow closely with you. Roland Maria MD
--- NOTE | 2017-09-17 20:36 | PN ---
DATE: 09/17/2017 LOCATION: The patient is in room 374, bed 2. REASON FOR CONSULTATION: Followup of hypertension, weakness, morbid obesity, nonischemic cardiomyopathy, and worsening kidney function due to acute injury. SUBJECTIVE: The patient still complaining that he is getting shortness of breath on minimal exertion; denies chest pain or palpitation. PHYSICAL EXAMINATION: VITAL SIGNS: Blood pressure 105/69, respirations 20, pulse 76, and temperature 98.2. HEENT: Head is normocephalic. Eyes; pupils normal conjunctivae, slightly pale. NECK: JVP, low. Carotid, equal. Thorax, AP diameter normal. CARDIOVASCULAR: S1, S2. LUNGS: No rales. ABDOMEN: Protuberant. No organomegaly. EXTREMITIES: No clubbing, no cyanosis. LABORATORY DATA: WBC 11.7, hemoglobin 10.6, hematocrit 33.0, and platelet 287. Sodium 136, potassium 4.8, BUN 21, and creatinine 1.7. AST and ALT normal. Total protein 8.8 and albumin 4.0. PREVIOUS CARDIAC WORKUP: The patient states that 5 years ago approximately at [facility] he had a cardiac cath and was told that his heart is weak. The patient had echo on 08/05/2017, which showed LV ejection fraction of 40%, trace mitral regurgitation, trace tricuspid regurgitation; poor study because of body habitus. So a MUGA scan was done on 08/04/2017, which showed LV ejection fraction of 55%. DIAGNOSES: Hypotensive episode probably secondary to noncompliant to medication. The patient also taking at home high dose of valsartan. Morbid obesity, nonischemic cardiomyopathy, acute kidney injury, and dehydration. Hypotension episode may be related to multiple issues including dehydration and medication. PLAN: I started yesterday Lasix 40 mg p.o. daily and Coreg 6.25 b.i.d. and to monitor blood pressure. The patient's valsartan is still on hold. We will add slowly other medications. The patient on Eliquis 2.5 b.i.d. The patient is a very poor compliant patient with medications. We will follow with you. Shayna Jay MD
--- NOTE | 2017-09-17 20:43 | PN ---
DATE: 09/17/2017 SUBJECTIVE: This patient is feeling much better now. Only on a liquid diet. Does not want to eat a solid food yet. Has episodes of abdominal pain, nausea, and vomiting. He is very concerned about eating a solid food at the present time. PHYSICAL EXAMINATION: VITAL SIGNS: Temperature 98.2, pulse is 76, blood pressure is 105/69, and respirations 20. HEENT: Atraumatic, anicteric. NECK: Supple. HEART: S1, S2 heard. LUNGS: Bilateral air entry present. ABDOMEN: Soft. There is mild tenderness present in the epigastric area. EXTREMITIES: Mild edema present bilaterally . NEUROLOGIC: Alert and oriented. Moves all the extremities. LABORATORY DATA: Hemoglobin is 10.6, hematocrit 33, WBC is 11.7, and platelets 287. Total creatinine is showing a downward trend, is about 1.7 now. IMPRESSION: This is a 36-year-old patient with a history of cardiomyopathy, chronic kidney disease, history of pyelonephritis, urinary tract infection, history of ureteric stent placement before, morbid obesity, admitted with feeling weakness and low blood pressure. The patient is also found to have Klebsiella urinary tract infection and has been on antibiotics. Had an episode of nausea and vomiting, presently on a liquid diet and able to tolerate it. The patient has a history of chronic pancreatitis, on enzyme supplement, is concerned about not taking enough supplement. I did get the details of the patient's pharmacy and will find out how much dose exactly he is taking now. I did explain to him in detail that there is no reason to take heather dose of the medication - 15,000 to 20,000 units maybe okay for him with the meals at the present time. The patient also possibly clinically has symptoms more suggestive of even gastroparesis at the present time. We will slowly advance the diet to soft diet in a.m. if the patient continues to clinically improve. Thank you very much for allowing us to participate in the care of the patient. Souleymane Choe MD
[2017-09-18] MEDS: HYDROmorphone 2 mg/ml ISec IVP PRN ×4 (02:58→15:16)
[2017-09-18 05:23] VITALS: O2SAT 94
[2017-09-18] MEDS: Amylase/Lipase/Protease 5,000 Units ECC PO SCH ×2 (07:02→12:01)
--- NOTE | 2017-09-18 08:46 | PN ---
DATE: 09/15/2017 SUBJECTIVE: The patient is 36-year-old, seen and examined, lying in bed, seems to be comfortable. Complain of epigastric pain. Complain of left flank pain. No difficulty urination anymore. No hematuria. PHYSICAL EXAMINATION VITAL SIGNS: Afebrile, pulse is 82, respirations are 16, and blood pressure is 129/83. LUNGS: Bilateral fair airflow. No rhonchi or crackles. HEART: S1 and S2 audible. ABDOMEN: Soft, very obese, nontender. No rebound. No guarding. NEUROLOGIC: The patient is awake, alert, oriented, communicative, ambulatory. LABORATORY DATA: WBC is 11.7. hemoglobin is 10.6, hematocrit is 33, and platelets 287. Chemistries: Sodium 132, potassium 4.6, chloride 99, CO2 of 31, BUN 31, creatinine 2.0, blood sugar of 130. His urine shows Klebsiella pneumoniae UTI. Blood cultures are negative. ASSESSMENT AND PLAN: 1. Klebsiella pneumoniae urinary tract infection. 2. Status post hypertension, seems to be improving. 3. Acute on chronic renal insufficiency. 4. Nonischemic cardiomyopathy. 5. Paroxysmal atrial fibrillation. PLAN: Currently, the patient is on Rocephin. He is getting Pepcid. He complain of feeling nauseous. We will put him on Zofran as needed and we will follow up this patient in a.m. I discussed with Dr. Lange. Because of morbid obesity, he is not a candidate of lithotripsy. He need to be referred to where he can have interview until lithotripsy done. Once the patient is stable, we will make a plan and he will be referred to Tertiary Care Unit. Sammy Santiago MD
--- NOTE | 2017-09-18 09:02 | CON ---
DATE: 09/15/2017 REASON FOR CONSULTATION: Abdominal pain. HISTORY OF PRESENT ILLNESS: This is a 36-year-old patient with history of cardiomyopathy with chronic pancreatitis, history of EtOH in the past, recently discharged from the hospital, was readmitted for complaints of weakness and the patient was also found to have low blood pressure. The patient has been empirically treated for sepsis. The patient had episodes of vomiting today, GI consult was requested to evaluate it. PAST MEDICAL HISTORY: Other past medical history significant for dilated cardiomyopathy, history of pancreatitis, paroxysmal atrial fibrillation, congestive heart failure on exam. PAST SURGICAL HISTORY: Significant for ureteric stent placement and status post cholecystectomy. ALLERGIES: LUZ INHIBITORS GOT SWELLING OF THE LIPS WHAT APPEARS TO BE LIKE ANAPHYLACTIC REACTION WITH LUZ INHIBITORS. MEDICATIONS: The patient is taking Lasix. SOCIAL HISTORY: He still smokes and .social alcohol drinking. Used to be a heavy EtOH and used to smoke significantly in the past FAMILY HISTORY noncontributory REVIEW OF SYSTEMS all other systems reviewed are positive as above PHYSICAL EXAMINATION patient is lying on the bed not in acute distress VITAL SIGNS stable now afebrile blood pressure 129/83 HEENT atraumatic anicteric nECK supple no mass CVS Si S2 heard RS bilateral air entry present nor was at upper sounds ABDOMEN soft tenderness present in the epigastric area and also left-sided abdomen eXTREMITIES 1+ edema no cyanosis nEUROLOGICAL alert oriented and moves all extremities lABORATORY DATA labs reviewed imaging studies reviewed aSSESSMENT 1. Nausea vomiting could be transient patient does have chronic pancreatitis on insulin supplements Gastroparesis is also should be considered as a differential diagnosis 2. Other comorbidities include a pleuritic stool, Klebsiella UTI, CHF acute kidney injury on top of chronic kidney disease pLAN 1. Continue clear liquid diet 2. Pepcid 20 mg IV every 12 hours 3. Short course of Reglan if it remains symptomatic We'll start the pain is enzyme supplement once increase his fluid intake and advance the diet dose soft to pured diet Patient is concerned about the dose of enzyme supplements we will discuss with the pharmacist and find out exactly what dose is taking and also clarify from DNJ regarding the dosage thank you very much for allowing this abuts but in the care of the patient Souleymane Choe MD [facility] # [id number] MTDSusan
[2017-09-18] MEDS: cefTRIAXone 2 GM IN NS 2 GM/100 ML BAG IVPB SCH (10:12)
[2017-09-18 11:24] LABS: ALB/GLOB RATIO 0.9 (1.1-1.8); BILIRUBIN,TOTAL 0.4 mg/dL (0.2-1.3); CALCIUM 9.8 mg/dL (8.4-10.5); POTASSIUM 4.4 mmol/L (3.6-5.0); TOTAL PROTEIN 8.3 g/dL (5.8-8.3)
--- NOTE | 2017-09-18 11:31 | PN ---
DATE: SUBJECTIVE: The patient is 36 years old, seen and examined, lying in bed. He states he feels a little comfortable, want to eat a little solid food. Denies any nausea in the last 24 hours. PHYSICAL EXAMINATION: VITAL SIGNS: He is afebrile, pulse 76, respirations 20, blood pressure 105/69. LUNGS: Bilateral fair airflow. No rhonchi or crackle. HEART: S1 and S2 audible. ABDOMEN: Soft, obese, nontender. No rebound. No guarding. NEUROLOGIC: He is awake, alert, oriented, communicative, ambulatory. LABORATORY DATA: His chemistry: Sodium 136, potassium 4.8, chloride 99, CO2 of 25, BUN 21, creatinine 1.7, blood sugar 110. LFTs are within normal limit. His urine shows Klebsiella pneumoniae UTI. ASSESSMENT: 1. Status post hypotension leading to acute tubular necrosis and acute renal failure. 2. Nonischemic cardiomyopathy. 3. Hypertension, but is running hypotensive. 4. Status post left ureteral stent placement. 5. Klebsiella urinary tract infection. 6. Recurrent pancreatitis secondary to heavy alcohol use in the past. 7. Resolving renal insufficiency. PLAN: Currently, the patient is on carvedilol. He is on Eliquis. He is getting hydromorphone. He is on Lasix and Rocephin. I will advance his diet from liquid to full liquid and we will observe him for next 24 hours. If his kidney function improved and he tolerated the food, we will make discharge plan in the a.m. Sammy Santiago MD
[2017-09-18 13:00] VITALS: BP 121/76; RESP 17; TEMP 98.3
[2017-09-18 16:11] VITALS: PULSE 71
--- NOTE | 2017-09-18 20:30 | PN ---
DATE: 09/18/2017
--- NOTE | 2017-09-18 22:30 | PN ---
DATE: 09/18/2017
--- NOTE | 2017-09-19 08:23 | DS ---
HOSPITAL COURSE: The patient is 36-year-old seen and examined and complained of epigastric and some discomfort. Does not have any appetite. He is tolerating liquid, did not like full liquid diet. We will order for soft food for the lunch, otherwise. PHYSICAL EXAMINATION: GENERAL: He is awake, alert, oriented, and communicative. VITAL SIGNS: He is afebrile, pulse 71, respirations 17, and blood pressure 121/76. LUNGS: Bilateral fair airflow. No rhonchi or crackle. HEART: S1 and S2 audible. ABDOMEN: Soft. He has epigastric discomfort, but no palpable tenderness. NEUROLOGIC: He is awake, alert, oriented, and communicative. LABORATORY DATA: WBC is 11.7, hemoglobin 10.6, hematocrit 33, and platelets 287. Chemistry, sodium 134, potassium 4.4., chloride 98, CO2 25, BUN 20, creatinine 1.7, and blood sugar of 122. LFTs are within normal limits. ASSESSMENT: 1. Klebsiella urinary tract infection. 2. History of hypotension, status post episode of hypotension leading to acute tubular necrosis and acute renal failure. 3. Nonischemic cardiomyopathy. 4. Recurrent pancreatitis, status post celiac block. 5. History of hypertension. 6. Left ureteral stent placement. PLAN: The patient is being discharged home today. We will discontinue his valsartan, continue him on Coreg and Lasix 40 mg daily and he will resume his pancreatic enzyme since the patient has history of the episode of AFib, so he has been started on Eliquis 2.5 [address] and discussed with Dr. Jay and discussed with Dr. Don. Sammy Santiago MD
--- NOTE | 2017-09-19 10:48 | PN ---
DATE: 09/18/2017 SUBJECTIVE: The patient is seen lying in bed. He is wake. He is alert. He is comfortable. He reports nausea. He reports severe abdominal pain earlier. He complains of difficulty keeping fluids down. PHYSICAL EXAMINATION GENERAL: Obese middle-aged male, lying in bed. Vital signs: Blood pressure 121/76, heart rate 92, respiratory rate 17, temperature 98.3. HEENT: Normocephalic and atraumatic, positive pallor. NECK: Supple, no JVD. LUNGS: Bilateral equal air entry, no rales. CARDIAC: S1 and S2. Regular rate and rhythm, no murmur, no rub. ABDOMEN: Obese, distended, soft, bowel sounds present. EXTREMITIES: No lower extremity edema. INTAKE AND OUTPUT: 500/800. LABORATORY DATA: WBC 11.7, hemoglobin 10.6, hematocrit 33, platelets 287. Sodium 134, potassium 4.4, chloride 98, CO2 of 25, BUN 20, creatinine 1.7, glucose 132, calcium 9.8. Albumin 3.9. CURRENT MEDICATIONS: Coreg 6.25 b.i.d., Dilaudid, Eliquis, Lasix 40 p.o. daily, Pepcid, Rocephin 2 g daily and Zofran. ASSESSMENT AND PLAN: 1. Acute kidney injury superimposed on chronic kidney disease stage II/III. Resolved acute kidney injury. Creatinine almost at baseline. 2. Recurrent Klebsiella urinary tract infection. 3. Recent left pyelonephritis, obstructive uropathy, left ureteral stent placement. 4. Morbid obesity. 5. History of hypertension. 6. Chronic pancreatitis. PLAN: 1. Agree with restarting Coreg 6.25 b.i.d., blood pressure is much better. The patient is hemodynamically stable now. 2. Continue to hold Diovan. 3. Continue IV Rocephin, noted. The patient can home on Vantin when ready for discharge. 4. Continue low-dose Lasix. 5. Discharge planning. Angelica Don MD
== END 2017-09-18 17:11 | disposition home or self-care (01) | DRG 871 ==
LOC: ED 18:57 → ERH 21:55 → 3RSO 09-13 00:08
PROVIDERS: ADMIT Internal Medicine; ATTEND Internal Medicine
DX: A41.9 Sepsis, unspecified organism (principal); N17.0 Acute kidney failure with tubular necrosis; I50.23 Acute on chronic systolic (congestive) heart failure; E66.01 Morbid (severe) obesity due to excess calories; E87.5 Hyperkalemia; I42.0 Dilated cardiomyopathy; I48.0 Paroxysmal atrial fibrillation; E86.0 Dehydration; N13.6 Pyonephrosis; I42.6 Alcoholic cardiomyopathy; I13.0 Hypertensive heart and chronic kidney disease with heart failure and stage 1 through stage 4 chronic kidney disease, or unspecified chronic kidney disease; N18.3 Chronic kidney disease, stage 3 (moderate); K86.1 Other chronic pancreatitis; Z68.43 Body mass index [BMI] 50.0-59.9, adult; R65.20 Severe sepsis without septic shock; F10.10 Alcohol abuse, uncomplicated; B96.1 Klebsiella pneumoniae [K. pneumoniae] as the cause of diseases classified elsewhere; F17.210 Nicotine dependence, cigarettes, uncomplicated; Z79.01 Long term (current) use of anticoagulants; Z91.14 Patient's other noncompliance with medication regimen; Z90.49 Acquired absence of other specified parts of digestive tract; Z87.440 Personal history of urinary (tract) infections

== ENCOUNTER 2017-10-22 15:18 | Inpatient (IN) | payer BC ==
[2017-10-22 15:19] VITALS: PULSE 95
[2017-10-22 15:20] VITALS: BMI 48.7
[2017-10-22] MEDS ORDERED: Sodium Chloride 0.9% 1,000 ML IV STA (16:29)
--- NOTE | 2017-10-22 16:35 | ED PDOC ---
Arrival/HPI - General Chief Complaint: Abdominal Pain Time Seen by Provider: 10/22/17 15:22 Historian: Patient - History of Present Illness Narrative History of Present Illness (Text): 36yoM, with epigastric abdomen pain, resulting in difficulty breathing due to pain. otherwise nausea, but no vomiting/chest pain/numbness/tingling/loss bowel or bladder function/dysuria. 10/22/17 16:32 Time/Duration: Other (1 day) Symptom Course: Unchanged Quality: Aching Severity Level: 4 Activities at Onset: Rest Context: Sitting Past Medical History - Provider Review Nursing Documentation Reviewed: Yes - Travel History Have you recently traveled outside [place] w/in the past 3 mons?: No - Past History Past History: Non-Contributing - Infectious Disease Hx of Infectious Diseases: None - Tetanus Immunization Tetanus Immunization: Unknown - Cardiac Hx Cardiac Disorders: Yes (cardiomyopathy, hypotension) Hx Cardiac Arrhythmia: Yes (Afib) Hx Congestive Heart Failure: Yes Hx Hypertension: Yes Hx Peripheral Edema: Yes - Pulmonary Hx Respiratory Disorders: Yes Hx Sleep Apnea: Yes - Neurological Hx Neurological Disorder: No - HEENT Hx HEENT Disorder: No - Renal Hx Renal Disorder: Yes (hydronephrosis, L ureteral pigtail stent) Hx Kidney Stones: Yes Hx Renal Failure: Yes - Endocrine/Metabolic Hx Endocrine Disorders: No - Hematological/Oncological Hx Blood Disorders: No - Integumentary Hx Dermatological Disorder: No - Musculoskeletal/Rheumatological Hx Musculoskeletal Disorders: No Hx Falls: No - Gastrointestinal Hx Gastrointestinal Disorders: Yes (diverticulosis) Hx Diverticulitis: Yes Hx Gastroesophageal Reflux: Yes Hx Pancreatitis: Yes - Genitourinary/Gynecological Hx Genitourinary Disorders: Yes (urinary retention) Hx Urinary Tract Infection: Yes - Psychiatric Hx Psychophysiologic Disorder: No Hx Substance Use: No - Past Surgical History Past Surgical History: No Previous - Surgical History Hx Cholecystectomy: Yes - Anesthesia Hx Anesthesia: Yes Hx Anesthesia Reactions: No Hx Malignant Hyperthermia: No - Suicidal Assessment Feels Threatened In Home Enviroment: No Family/Social History - Physician Review Nursing Documentation Reviewed: Yes Family/Social History: No Known Family HX Smoking Status: Heavy Smoker > 10 Cigarettes Daily Hx Alcohol Use: No Hx Substance Use: No Hx Substance Use Treatment: No Allergies/Home Meds Allergies/Adverse Reactions: Allergies LUZ Inhibitors Allergy (Verified 10/22/17 15:28) ANGIOEDEMA Home Medications: Home Meds Medication Instructions Recorded Confirmed Carvedilol [Coreg] 12.5 mg PO BID 08/06/17 10/22/17 Famotidine [Pepcid] 20 mg PO DAILY 08/06/17 10/22/17 Furosemide [Lasix] 40 mg PO BID 08/06/17 10/22/17 Spironolactone [Aldactone] 25 mg PO DAILY 08/06/17 10/22/17 HYDROmorphone [Dilaudid] 2 mg PO PRN PRN 08/22/17 10/22/17 Review of Systems - Review of Systems Constitutional: Normal Eyes: Normal ENT: Normal Respiratory: SOB Cardiovascular: Normal Gastrointestinal: Abdominal Pain Genitourinary Male: Normal Musculoskeletal: Normal Skin: Normal Neurological: Normal Endocrine: Normal Hemo/Lymphatic: Normal Psychiatric: Normal Physical Exam Vital Signs Reviewed: Yes Vital Signs Temp Pulse Resp BP Pulse Ox 10/22/17 21:49 85 18 130/84 100 10/22/17 19:00 80 18 128/82 99 10/22/17 17:19 84 18 126/69 99 10/22/17 15:42 97.9 F 91 H 18 130/72 99 Temperature: Afebrile Blood Pressure: Hypertensive Pulse: Regular Respiratory Rate: Normal Appearance: Positive for: Well-Appearing, Non-Toxic, Comfortable Pain Distress: None Mental Status: Positive for: Alert and Oriented X 3 - Systems Exam Head: Present: Atraumatic, Normocephalic Pupils: Present: PERRL Extroacular Muscles: Present: EOMI Conjunctiva: Present: Normal Ears: Present: Normal Mouth: Present: Moist Mucous Membranes Pharnyx: Present: Normal Nose (External): Present: Atraumatic Nose (Internal): Present: Normal Inspection Neck: Present: Normal Range of Motion Respiratory/Chest: Present: Clear to Auscultation, Good Air Exchange Cardiovascular: Present: Regular Rate and Rhythm Abdomen: Present: Tenderness, Other (generalized) Back: Present: Normal Inspection, Other (no c-t-l spinal or paraspinal tenderness) Upper Extremity: Present: Normal Inspection Lower Extremity: Present: Normal Inspection Neurological: Present: GCS=15, CN II-XII Intact, Speech Normal, Motor Func Grossly Intact Skin: Present: Warm, Normal Color Psychiatric: Present: Alert, Oriented x 3, Normal Insight, Normal Concentration Medical Decision Making ED Course and Treatment: 36yoM, history of cardiomyopathy, pancreatitis, obesity, eliquis use, renal insufficiency, with epigastric abdomen pain, resulting in difficulty breathing due to pain. otherwise nausea, but no vomiting/chest pain/numbness/tingling/ loss bowel or bladder function/dysuria. You were otherwise breathing easily, smiling, good strength/sensation, clear lungs, no specific abdomen tenderness, no spinal tenderness, no fever temp 97.9, stable heart rate 91, stable breathing rate 18, excellent oxygen level 99% room air, elevated blood pressure 130/72. wbc 19. Plan: -- CT scan of the abdomen/pelvis and chest -- Acetaminophen, Dilaudid, Zofran, Sodium Chloride IV fluids -- Reassess and disposition Prior Visits: Notes and results from previous visits were reviewed. Patient was last seen in the emergency department on 09/12/17, was diagnosed with hypotension, and was hospitalized. 10/22/17 22:40 CT mild hydronephris of the left kidney. diveritculitis with foci of percolinic gas. Alex/ Singh Joy who accepted the patient for Dr. Santiago and stated agreed abx cipro/flagyl, npo, ivf, surgical consult with Indigo Aldana I discussed with surgical scrub technologist on-call who will evaluate the patient. - Lab Interpretations Lab Results: 10/22/17 16:45 10/22/17 20:00 Lab Results 10/22/17 20:00: Sodium 132, Potassium 4.4, Chloride 99, Carbon Dioxide 23, Anion Gap 14, BUN 23 H, Creatinine 1.8 H, Est GFR ( Amer) 51, Est GFR ( Non-Af Amer) 42, Random Glucose 95, Calcium 10.1, Magnesium 2.2, Total Bilirubin 0.5, AST 25, ALT 18, Alkaline Phosphatase 94, Lactate Dehydrogenase 325 L, Total Creatine Kinase 23 L, Troponin I 0.02 D, NT-Pro-B Natriuret Pep 285, Total Protein 8.7 H, Albumin 3.6, Globulin 5.0, Albumin/Globulin Ratio 0.7 L 10/22/17 19:30: Urine Opiates Screen Positive H, Urine Methadone Screen Negative , Ur Barbiturates Screen Negative, Ur Phencyclidine Scrn Negative, Ur Amphetamines Screen Negative, U Benzodiazepines Scrn Negative, U Oth Cocaine Metabols Negative, U Cannabinoids Screen Negative 10/22/17 19:30: Urine Color Yellow, Urine Appearance Cloudy, Urine pH 5.5, Ur Specific [place] 1.025, Urine Protein 100 H, Urine Glucose (UA) Negative, Urine Ketones Trace H, Urine Blood Large H, Urine Nitrate Positive H, Urine Bilirubin Negative, Urine Urobilinogen 0.2, Ur Leukocyte Esterase Moderate H, Urine RBC Tntc, Urine WBC Tntc, Ur Epithelial Cells 10 - 12, Urine Bacteria Many 10/22/17 17:15: Lipase 312 H 10/22/17 16:45: PT 15.0 H, INR 1.31 H, APTT 37.7 H 10/22/17 16:45: WBC 19.4 H D, RBC 4.19, Hgb 12.6 L D, Hct 38.4 L, MCV 91.6 D, MCH 30.1, MCHC 32.8, RDW 14.9 H, Plt Count 524 H, MPV 10.5, Gran % 75.2 H, Lymph % (Auto) 13.1 L, [place] % (Auto) 11.2 H, Eos % (Auto) 0.4 L, Baso % (Auto) 0.1, Gran # 14.57 H, Lymph # 2.5, [place] # 2.2 H, Eos # 0.1, Baso # 0.02 I have reviewed the lab results: Yes - RAD Interpretation Radiology Orders: 10/22/17 16:28 CHEST,ABDOMEN, PELVIS W/O CONT [CT] Stat Slot Editor: Radiologist - EKG Interpretation Interpreted by ED Physician: Yes (SR with PVCs.) Type: 12 lead EKG Comparison: Similar to previous EKG (09/12/17) - Medication Orders Current Medication Orders: Discontinued Medications Acetaminophen (Tylenol 325mg Tab) 975 mg PO STAT STA Stop: 10/22/17 16:30 Last Admin: 10/22/17 17:08 Dose: MAR Pain/Vitals Document 10/22/17 17:08 SF (Rec: 10/22/17 17:08 SF [id number] Pain Reassessment Is This A Pain ReAssessment? Yes Sleep Is patient sleeping during reassessment? No Presence of Pain Presence of Pain Yes Pain Scale Used Pain Scale Used Numeric Hydromorphone HCl (Dilaudid) 1 mg IVP STAT STA Stop: 10/22/17 17:15 Last Admin: 10/22/17 17:26 Dose: 1 mg MAR Pain Assessment Document 10/22/17 17:26 SF (Rec: 10/22/17 17:27 SF [place] [id number]) Pain Reassessment Is this a pain reassessment? Yes Sleep Is patient sleeping during reassessment? No Presence of Pain Presence of Pain Yes Pain Scale Used Pain Scale Used Numeric IVP Administration Document 10/22/17 17:26 SF (Rec: 10/22/17 17:27 SF [facility] Charges for Administration # of IVP Administrations 1 Hydromorphone HCl (Dilaudid) 2 mg IVP STAT STA Stop: 10/22/17 21:20 Last Admin: 10/22/17 21:20 Dose: 2 mg MAR Pain Assessment Document 10/22/17 21:20 SS (Rec: 10/22/17 22:13 SS [place] [id number]) Pain Reassessment Is this a pain reassessment? Yes Sleep Is patient sleeping during reassessment? No Presence of Pain Presence of Pain Yes Location Pain Location Body Site Abdomen Description Description Constant Pain Behavior Irritability Restlessness IVP Administration Document 10/22/17 21:20 SS (Rec: 10/22/17 22:13 SS [place] [id number]) Charges for Administration # of IVP Administrations 1 Sodium Chloride (Sodium Chloride 0.9%) 1,000 mls @ 999 mls/hr IV .Q1H1M STA Stop: 10/22/17 17:29 Last Admin: 10/22/17 16:45 Dose: 999 mls/hr eMAR Start Stop Document 10/22/17 16:45 SF (Rec: 10/22/17 17:09 SF [id number] Intravenous Solution Start Date 10/22/17 Start Time 16:45 End Date 10/22/17 End time 17:46 Total Infusion Time 61 Ciprofloxacin (Cipro 400mg/200ml Dsw) 400 mg in 200 mls @ 133.3 mls/hr IVPB STAT STA PRN Reason: Protocol Stop: 10/22/17 21:38 Last Admin: 10/22/17 21:16 Dose: 133.3 mls/hr eMAR Start Stop Document 10/22/17 21:16 SS (Rec: 10/22/17 21:16 SS [id number]) Intravenous Solution Start Date 10/22/17 Start Time 21:16 End Date 10/22/17 End time 22:47 Total Infusion Time 91 Metronidazole (Flagyl) 500 mg in 100 mls @ 100 mls/hr IVPB STAT STA PRN Reason: Protocol Stop: 10/22/17 21:41 Ondansetron HCl (Zofran Inj) 4 mg IVP STAT STA Stop: 10/22/17 16:30 Last Admin: 10/22/17 17:09 Dose: 4 mg IVP Administration Document 10/22/17 17:09 SF (Rec: 10/22/17 17:09 [email or web address] Charges for Administration # of IVP Administrations 1 Disposition/Present on Arrival - Present on Arrival Any Indicators Present on Arrival: No History of DVT/PE: No History of Uncontrolled Diabetes: No Urinary Catheter: No History of Decub. Ulcer: No History Surgical Site Infection Following: None - Disposition Have Diagnosis and Disposition been Completed?: Yes Diagnosis: Perforation of intestine due to diverticulitis of gastrointestinal tract Disposition: HOSPITALIZED Disposition Time: 22:48 Patient Plan: Admission Condition: STABLE
[2017-10-22] MEDS ORDERED: HYDROmorphone 1 mg/ml ISec IVP STA (17:14)
[2017-10-22 19:29] LABS: BASO # 0.02 K/mm3 (0.0-2.0); BASO % 0.1 % (0.0-3.0); EOS # 0.1 (0.0-0.7); EOS % 0.4 % (1.5-5.0); GRAN # 14.57 (1.4-6.5); GRAN % 75.2 % (50.0-68.0); HEMOGLOBIN 12.6 g/dL (14.0-18.0); LYMPH # 2.5 (1.2-3.4); LYMPH % 13.1 % (22.0-35.0); MEAN CELL VOLUME 91.6 fl (80.0-105.0); MEAN CORPUSCULAR HEMOGLOBIN 30.1 pg (25.0-35.0); MEAN CORPUSCULAR HGB CONC 32.8 g/dl (31.0-37.0); MEAN PLATELET VOLUME 10.5 fl (7.0-11.0); MONO # 2.2 (0.1-0.6); MONO % 11.2 % (1.0-6.0); RBC 4.19 10^6/uL (3.5-6.1); RED CELL DISTRIBUTION WIDTH 14.9 % (11.5-14.5); WHITE BLOOD COUNT 19.4 10^3/ul (4.5-11.0)
[2017-10-22 19:49] LABS: INR 1.31 (0.93-1.08); PARTIAL THROMBOPLASTIN TIME 37.7 Seconds (25.1-36.5)
[2017-10-22 19:54] LABS: PH,URINE 5.5 (4.7-8.0); URINE BILIRUBIN NEGATIVE (NEGATIVE); URINE BLOOD LARGE (NEGATIVE); URINE GLUCOSE (UA) NEGATIVE (NEGATIVE); URINE LEUKOCYTE ESTERASE MODERATE Leu/uL (NEGATIVE); URINE NITRATE POSITIVE (NEGATIVE); URINE PROTEIN 100 mg/dL (<30 mg/dL); URINE UROBILINOGEN 0.2 E.U./dL (<1 E.U./dL)
[2017-10-22 19:57] LABS: URINE APPEARANCE CLOUDY (CLEAR); URINE COLOR YELLOW (YELLOW)
[2017-10-22 20:05] LABS: BARBITURATES, UR NEGATIVE (NEGATIVE); BENZODIAZEPINES, UR NEGATIVE (NEGATIVE); PHENCYCLIDINE, UR NEGATIVE (NEGATIVE)
[2017-10-22 20:08] LABS: OPIATES, UR POSITIVE (NEGATIVE)
[2017-10-22] MEDS ORDERED: Ciprofloxacin 400mg/200ml D5W 400 MG/200 ML BAG IVPB STA (20:08)
--- NOTE | 2017-10-22 20:22 | CT ---
EXAM: CT Abdomen and Pelvis Without Intravenous Contrast CLINICAL HISTORY: The patient age is 36 years old and is male; Pain; Abdominal pain; Chest pain; Patient HX: 36yom, with abdomen, chest pain; Additional info: 36yom, with abdomen pain Facility exam id and description: [facility] chest, abdomen, pelvis w/o cont TECHNIQUE: Axial computed tomography images of the abdomen and pelvis without intravenous contrast. All CT scans at this facility use one or more dose reduction techniques, viz.: automated exposure control; ma/kV adjustment per patient size (including targeted exams where dose is matched to indication; i.e. head); or iterative reconstruction technique. Coronal and sagittal reformatted images were created and reviewed. COMPARISON: CT - ABD PELVIS W/O PO OR IV CONT 2017-09-12 22:20 FINDINGS: ABDOMEN: Liver: No mass. Gallbladder and bile ducts: Surgical clips are identified within the gallbladder fossa, compatible with cholecystectomy. Pancreas: Mild atrophic changes are noted of the pancreas. Spleen: No splenomegaly. Adrenals: No mass. Kidneys and ureters: A left ureteral stent is visualized. There is mild hydronephrosis of the left kidney, with perinephric stranding. Pyelonephritis cannot be excluded. At the lower pole of the left kidney, there is a 1.5 x 0.5 cm nonobstructing calculus. There is a hypodense cyst or dilated calyx at the upper pole the left kidney measuring 3.3 x 3.0 cm. Hypodense fluid or a lesion is seen posterior to left kidney measuring 4.2 x 2.2 cm, similar to the prior study. Stomach and bowel: Colonic diverticula are visualized involving the sigmoid colon, with pericolonic stranding. This is consistent with colitis or diverticulitis. Foci of pericolonic gas are also visualized adjacent to the sigmoid colon, consistent with perforation. Appendix: No findings to suggest acute appendicitis. PELVIS: Bladder: The bladder is decompressed. No stones. Reproductive: Unremarkable as visualized. ABDOMEN and PELVIS: Intraperitoneal space: See above. Bones/joints: Sclerotic right sacroiliac arthropathy is visualized. Hypertrophic degenerative changes are noted within the spine. Soft tissues: There is a small lipoma or focal prominence of fat within the anterior right thigh. Vasculature: No abdominal aortic aneurysm. Lymph nodes: Nonspecific small inguinal lymph nodes are visualized. Small intrapelvic lymph nodes are identified, without significant lymphadenopathy. A few mildly enlarged retroperitoneal lymph nodes are seen in the left para-aortic region. One of these lymph nodes measures 1.4 x 0.8 cm. These lymph nodes are nonspecific as to etiology. IMPRESSION: 1. Colonic diverticula are visualized involving the sigmoid colon, with pericolonic stranding. This is consistent with colitis or diverticulitis. Foci of pericolonic gas are also visualized adjacent to the sigmoid colon, consistent with perforation. 2. A left ureteral stent is visualized. There is mild hydronephrosis of the left kidney, with perinephric stranding. Pyelonephritis cannot be excluded. At the lower pole of the left kidney, there is a 1.5 x 0.5 cm nonobstructing calculus. 3. There is a hypodense cyst or dilated calyx at the upper pole the left kidney measuring 3.3 x 3.0 cm. Hypodense fluid or a lesion is seen posterior to left kidney measuring 4.2 x 2.2 cm, similar to the prior study. Correlation with ultrasonography is recommended. 4. A few mildly enlarged retroperitoneal lymph nodes are seen, nonspecific as to etiology. 5. Additional CT findings described above. EXAM: CT Chest Without Intravenous Contrast EXAM DATE/TIME: 10/22/2017 4:28 PM CLINICAL HISTORY: The patient age is 36 years old and is male; Pain; Abdominal pain; Chest pain; Patient HX: 36yom, with abdomen, chest pain; Additional info: 36yom, with abdomen pain Facility exam id and description: [facility] chest, abdomen, pelvis w/o cont TECHNIQUE: Axial computed tomography images of the chest without intravenous contrast. All CT scans at this facility use one or more dose reduction techniques, viz.: automated exposure control; ma/kV adjustment per patient size (including targeted exams where dose is matched to indication; i.e. head); or iterative reconstruction technique. Coronal and sagittal reformatted images were created and reviewed. COMPARISON: No relevant prior studies available. FINDINGS: Lungs: Mild emphysematous changes are visualized, which are predominately paraseptal. Small bullae are seen. There is a 3 mm hyperdense calcified nodule within the right upper lobe on series 3 image 41. Mild atelectatic changes are identified within the left lower lobe. Otherwise, there is no confluent infiltrate. No lung mass. Pleural space: No pneumothorax. No significant effusion. Heart: There is a small pericardial effusion. There is mild enlargement of the left atrium of the heart. Thyroid: There is a 1.7 x 1.0 cm hypodense nodule within the right thyroid lobe. Bones/joints: Hypertrophic degenerative changes are noted within the spine. Soft tissues: A small fat containing Bochdalek hernia is visualized at the right lung base. Bilateral gynecomastia is identified. Vasculature: No thoracic aortic aneurysm. Lymph nodes: There is no significant mediastinal lymphadenopathy. Evaluation of hilar lymph nodes is limited by the absence of intravenous contrast. IMPRESSION: 1. Mild emphysematous changes are visualized. 2. There is a 1.7 x 1.0 cm hypodense nodule within the right thyroid lobe. Nonemergent ultrasonography is recommended. 3. There is a small pericardial effusion. There is mild enlargement of the left atrium of the heart. 4. Incidental/non-acute findings are described above.
[2017-10-22 20:34] LABS: URINE BACTERIA MANY (NEG); URINE RBC TNTC /hpf (0-2); URINE WBC TNTC /hpf (0-6)
[2017-10-22] MEDS ORDERED: metroNIDAZOLE IV 500 mg/100 ml 500 MG/100 ML BAG IVPB STA (20:42)
[2017-10-22 21:05] LABS: ALB/GLOB RATIO 0.7 (1.1-1.8); ALBUMIN 3.6 g/dL (3.0-4.8); CALCIUM 10.1 mg/dL (8.4-10.5); MAGNESIUM 2.2 mg/dL (1.7-2.2)
[2017-10-22 21:16] LABS: TROPONIN I 0.02 ng/mL
[2017-10-22] MEDS ORDERED: HYDROmorphone 2 mg/ml ISec IVP STA (21:19)
--- NOTE | 2017-10-22 23:21 | CP.PCM.CON ---
<Bobby Gamez - Last Filed: 10/22/17 23:53> History of Present Illness - History of Present Illness History of Present Illness: Surgery Consult Note. Dr. Coyle 36yo M with PMHx of CHF, Cardiomyopathy, A.Fib on eliquis, HTN, Sleep Apnea, CKD , Chronic Pancreatitis, GERD, recurrent UTIs, Kidney stones w L ureteral stent here for evaluation of abdominal pain. Pain described as diffuse throughout the abdomen, worse in epigastric and LLQ, radiates to bilateral back, feels sharp. States that these symptoms have been going on for the past week, associated with decreased appetite, nausea and vomiting (non-bilious, non-bloody)1-2 times a day over the course of the week. He reports that the last time he had a meal was 1 week ago. BMs have been loose over the past 2 days and reports a liquid, "oily and red bloody" stool yesterday. Denies any fevers, no chills. No CP/SOB. Does report lethargy and dizziness. No headache. Does report burning sensation when urinating but this has been ongoing for several weeks. CT abd/pelvis in ED with evidence of acute sigmoid diverticulitis with microperforation. PMD: [facility] Urology: Kate PMHx: Morbid Obesity,CHF, Cardiomyopathy, A.Fib on eliquis, HTN, Sleep Apnea, CKD, Chronic Pancreatitis, GERD, recurrent UTIs, Kidney stones w L ureteral stent PSHx: Cholecystectomy, Left Ureteral Stent for kidney stones Social Hx: Current heavy tobacco use; Previous heavy ETOH abuse, quit 6 years ago; Denies illicit drugs Allergy: LUZ inhibitors Review of Systems - Review of Systems All systems: reviewed and no additional remarkable complaints except - Constitutional Constitutional: Anorexia, Fatigue, Lethargy. absent: Chills, Fever - Cardiovascular Cardiovascular: absent: Chest Pain, Dyspnea - Respiratory Respiratory: absent: Dyspnea - Gastrointestinal Gastrointestinal: Abdominal Pain, Diarrhea, Hematochezia, Nausea, Vomiting - Genitourinary Genitourinary: Difficulty Urinating, Dysuria, Flank Pain, Freq UTI, Hx Renal/ Bladder Calculi Past Patient History - Infectious Disease Hx of Infectious Diseases: None - Tetanus Immunizations Tetanus Immunization: Unknown - Past Medical History & Family History Past Medical History?: Yes - Past Social History Smoking Status: Heavy Smoker > 10 Cigarettes Daily - CARDIAC Hx Cardiac Disorders: Yes (cardiomyopathy, hypotension) Hx Cardia Arrhythmia: Yes (Afib) Hx Congestive Heart Failure: Yes Hx Hypertension: Yes Hx Peripheral Edema: Yes - PULMONARY Hx Respiratory Disorders: Yes Hx Sleep Apnea: Yes - NEUROLOGICAL Hx Neurological Disorder: No - HEENT Hx HEENT Problems: No - RENAL Hx Chronic Kidney Disease: Yes (hydronephrosis, L ureteral pigtail stent) Hx Kidney Stones: Yes Hx Renal Failure: Yes - ENDOCRINE/METABOLIC Hx Endocrine Disorders: No - HEMATOLOGICAL/ONCOLOGICAL Hx Blood Disorders: No - INTEGUMENTARY Hx Dermatological Problems: No - MUSCULOSKELETAL/RHEUMATOLOGICAL Hx Musculoskeletal Disorders: No Hx Falls: No - GASTROINTESTINAL Hx Gastrointestinal Disorders: Yes (diverticulosis) Hx Diverticulitis: Yes Hx Gastroesophageal Reflux: Yes Hx Pancreatitis: Yes - GENITOURINARY/GYNECOLOGICAL Hx Genitourinary Disorders: Yes (urinary retention) Hx Urinary Tract Infection: Yes - PSYCHIATRIC Hx Psychophysiologic Disorder: No Hx Substance Use: No - SURGICAL HISTORY Hx Cholecystectomy: Yes - ANESTHESIA Hx Anesthesia: Yes Hx Anesthesia Reactions: No Hx Malignant Hyperthermia: No Meds Allergies/Adverse Reactions: Allergies Allergy/AdvReac Type Severity Reaction Status Date / Time LUZ Inhibitors Allergy ANGIOEDEMA Verified 10/22/17 15:28 Physical Exam - Constitutional Appears: Non-toxic, No Acute Distress, Older Than Stated Age - Head Exam Head Exam: ATRAUMATIC, NORMAL INSPECTION, NORMOCEPHALIC - Eye Exam Eye Exam: EOMI, Normal appearance. absent: Scleral icterus - ENT Exam ENT Exam: Mucous Membranes Dry - Respiratory Exam Respiratory Exam: NORMAL BREATHING PATTERN. absent: Accessory Muscle Use, Respiratory Distress - GI/Abdominal Exam GI & Abdominal Exam: Soft. absent: Distended, Firm, Guarding, Rigid Additional comments: Diffusely tender to palpation with worse in epigastric and LLQ. No rebound, no guarding. No Distention. Obese - Extremities Exam Extremities exam: Positive for: normal inspection. Negative for: calf tenderness - Neurological Exam Neurological exam: Alert, Oriented x3 - Psychiatric Exam Psychiatric exam: Agitated, Anxious - Skin Skin Exam: Dry, Intact, Normal Color, Warm Results - Vital Signs Recent Vital Signs: Last Vital Signs Temp 97.9 F 10/22/17 15:42 Pulse 85 10/22/17 21:49 Resp 18 10/22/17 21:49 BP 130/84 10/22/17 21:49 Pulse Ox 100 10/22/17 21:49 - Labs Result Diagrams: 10/22/17 16:45 10/22/17 20:00 Assessment & Plan - Assessment and Plan (Free Text) Assessment: 36yo M with multiple co-morbidities here with acute sigmoid diverticulitis with microperf. Patient has hx of chronic pancreatitis and recurrent UTIs - CT Abd/Pelvis noted Plan: - NPO - IVF - Pain management - Recommend Infectious Disease consult - IV Rocephin/Flagyl. f/u blood cultures, urine cultures - Zofran - Strict I&Os - Serial Abd exams - f/u AM labs Further recs as per Dr. Leonides Gamez PGY1 surgery pager: [phone] <Darrell Coyle - Last Filed: 10/25/17 20:04> Meds - Medications Medications: Current Medications Heparin Sodium (Porcine) (Heparin) 5,000 units SC Q8 [facility] PRN Reason: Protocol Hydromorphone HCl (Dilaudid) 1 mg IVP Q4H PRN PRN Reason: Pain, moderate (4-7) Hydromorphone HCl (Dilaudid) 2 mg IVP Q4H PRN PRN Reason: Pain, severe (8-10) Last Admin: 10/25/17 19:47 Dose: 2 mg Metronidazole (Flagyl) 500 mg in 100 mls @ 100 mls/hr IVPB Q8 [facility] PRN Reason: Protocol Ceftriaxone Sodium (Rocephin 1 Gram Ivpb) 1 gm in 100 mls @ 100 mls/hr IVPB DAILY [facility] PRN Reason: Protocol Sodium Chloride (Sodium Chloride 0.9%) 1,000 mls @ 40 mls/hr IV .Q24H [facility] Metoclopramide HCl (Reglan) 5 mg IVP ACHS [facility] Ondansetron HCl (Zofran Inj) 4 mg IVP Q6H PRN PRN Reason: Nausea/Vomiting Pantoprazole Sodium (Protonix Inj) 40 mg IVP DAILY [facility] Results - Vital Signs Recent Vital Signs: Last Vital Signs Temp 98.3 F 10/25/17 08:18 Pulse 88 10/25/17 08:18 Resp 18 10/25/17 08:18 BP 120/81 10/25/17 08:18 Pulse Ox 98 10/25/17 08:18 - Labs Result Diagrams: 10/24/17 06:30 10/24/17 06:30 Assessment & Plan - Assessment and Plan (Free Text) Plan: Patient was seen, evaluated and examined by me. I agree with the assessment and plan as per the resident's note.
[2017-10-22 23:26] LABS: VENOUS BLOOD GAS BASE EXCESS -2.2 mmol/L (0.0-2.0); VENOUS BLOOD GAS PO2 45 mm/Hg (30-55); VENOUS BLOOD PH 7.34 (7.32-7.43)
[2017-10-22] MEDS ORDERED: Sodium Chloride 0.9% 1,000 ML IV SCH (23:45)
[2017-10-23] MEDS: HYDROmorphone 1 mg/ml ISec IVP PRN ×3 (01:01→09:01)
[2017-10-23] MEDS: metroNIDAZOLE IV 500 mg/100 ml 500 MG/100 ML BAG IVPB SCH ×3 (05:06→21:55)
[2017-10-23 07:45] LABS: BASO # 0.02 K/mm3 (0.0-2.0); BASO % 0.1 % (0.0-3.0); EOS # 0.2 (0.0-0.7); EOS % 1.1 % (1.5-5.0); GRAN # 10.93 (1.4-6.5); HEMOGLOBIN 11.2 g/dL (14.0-18.0); LYMPH # 2.2 (1.2-3.4); LYMPH % 14.5 % (22.0-35.0); MEAN CELL VOLUME 91.5 fl (80.0-105.0); MEAN CORPUSCULAR HEMOGLOBIN 29.6 pg (25.0-35.0); MEAN CORPUSCULAR HGB CONC 32.4 g/dl (31.0-37.0); MEAN PLATELET VOLUME 9.7 fl (7.0-11.0); MONO # 1.7 (0.1-0.6); MONO % 11.3 % (1.0-6.0); RBC 3.78 10^6/uL (3.5-6.1)
[2017-10-23 08:04] LABS: ALB/GLOB RATIO 0.7 (1.1-1.8); ALBUMIN 3.5 g/dL (3.0-4.8); CALCIUM 9.8 mg/dL (8.4-10.5)
--- NOTE | 2017-10-23 09:24 | CP.PCM.PN ---
<Rachel Batista - Last Filed: 10/23/17 09:19> Subjective - Date & Time of Evaluation Date of Evaluation: 10/23/17 Time of Evaluation: 07:00 - Subjective Subjective: Surgery: Dr. Coyle Pt seen and examined. No acute overnight events. States he has generalized abdominal pain. Denies N/V, F/C. Objective - Vital Signs/Intake and Output Vital Signs (last 24 hours): Temp Pulse Resp BP Pulse Ox 99.1 F 90 20 110/72 95 10/23/17 07:30 10/23/17 07:30 10/23/17 07:30 10/23/17 07:30 10/23/17 07:30 Intake and Output: 10/23/17 10/23/17 06:59 18:59 Intake Total 0 Output Total 400 Balance -400 - Medications Medications: Current Medications Hydromorphone HCl (Dilaudid) 1 mg IVP Q4H PRN PRN Reason: Pain, moderate (4-7) Last Admin: 10/23/17 09:01 Dose: 1 mg Metronidazole (Flagyl) 500 mg in 100 mls @ 100 mls/hr IVPB Q8 [facility] PRN Reason: Protocol Last Admin: 10/23/17 05:06 Dose: 100 mls/hr Ceftriaxone Sodium (Rocephin 2 Gm Ivpb) 2 gm in 100 mls @ 100 mls/hr IVPB DAILY [facility] PRN Reason: Protocol Sodium Chloride (Sodium Chloride 0.9%) 1,000 mls @ 125 mls/hr IV .Q8H [facility] Last Admin: 10/23/17 00:59 Dose: 125 mls/hr Ondansetron HCl (Zofran Inj) 4 mg IVP Q6H PRN PRN Reason: Nausea/Vomiting Last Admin: 10/23/17 09:00 Dose: 4 mg - Labs Labs: 10/23/17 07:30 10/23/17 07:30 PT 15.0 SECONDS (9.4-12.5) H 10/22/17 16:45 INR 1.31 (0.93-1.08) H 10/22/17 16:45 APTT 37.7 Seconds (25.1-36.5) H 10/22/17 16:45 - Constitutional Appears: Well, No Acute Distress - Head Exam Head Exam: ATRAUMATIC, NORMOCEPHALIC - Eye Exam Eye Exam: Normal appearance - ENT Exam ENT Exam: Mucous Membranes Moist - Respiratory Exam Respiratory Exam: NORMAL BREATHING PATTERN - Cardiovascular Exam Cardiovascular Exam: RRR - GI/Abdominal Exam GI & Abdominal Exam: Soft, Tenderness (generalized ). absent: Distended, Guarding, Rebound - Neurological Exam Neurological Exam: Alert, Awake, Oriented x3 - Skin Skin Exam: Dry, Intact, Warm Assessment and Plan - Assessment and Plan (Free Text) Assessment: 36M with sigmoid diverticulitis & likely microperforation Plan: - continue to monitor closely - Keep NPO with ice chips & IVF resuscitation - IV ABx per ID recs - serial abdominal exams - no surgical intervention at this time & will continue to treat conservatively with IV ABX and monitor clinical course - d/w Dr. Leonides Batista, PGY-3 Surgery <Darrell Coyle - Last Filed: 10/25/17 20:05> Objective - Vital Signs/Intake and Output Vital Signs (last 24 hours): Temp Pulse Resp BP Pulse Ox 98.3 F 88 18 120/81 98 10/25/17 08:18 10/25/17 08:18 10/25/17 08:18 10/25/17 08:18 10/25/17 08:18 - Medications Medications: Current Medications Heparin Sodium (Porcine) (Heparin) 5,000 units SC Q8 [facility] PRN Reason: Protocol Hydromorphone HCl (Dilaudid) 1 mg IVP Q4H PRN PRN Reason: Pain, moderate (4-7) Hydromorphone HCl (Dilaudid) 2 mg IVP Q4H PRN PRN Reason: Pain, severe (8-10) Last Admin: 10/25/17 19:47 Dose: 2 mg Metronidazole (Flagyl) 500 mg in 100 mls @ 100 mls/hr IVPB Q8 [facility] PRN Reason: Protocol Ceftriaxone Sodium (Rocephin 1 Gram Ivpb) 1 gm in 100 mls @ 100 mls/hr IVPB DAILY [facility] PRN Reason: Protocol Sodium Chloride (Sodium Chloride 0.9%) 1,000 mls @ 40 mls/hr IV .Q24H [facility] Metoclopramide HCl (Reglan) 5 mg IVP ACHS [facility] Ondansetron HCl (Zofran Inj) 4 mg IVP Q6H PRN PRN Reason: Nausea/Vomiting Pantoprazole Sodium (Protonix Inj) 40 mg IVP DAILY [facility] - Labs Labs: 10/24/17 06:30 10/24/17 06:30 PT 15.0 SECONDS (9.4-12.5) H 10/22/17 16:45 INR 1.31 (0.93-1.08) H 10/22/17 16:45 APTT 37.7 Seconds (25.1-36.5) H 10/22/17 16:45 Assessment and Plan - Assessment and Plan (Free Text) Plan: Patient was seen, evaluated and examined by me. I agree with the assessment and plan as per the resident's note.
--- NOTE | 2017-10-23 09:52 | CARD ---
APPROVED REPORT EKG Measurement Heart [id number] MS [id number] <Conclusion> Sinus rhythm PVC APC NSSTW changes Prolonged QTc
[2017-10-23] MEDS ORDERED: cefTRIAXone 2 GM IN NS 2 GM/100 ML BAG IVPB SCH (10:00)
[2017-10-23] MEDS: HYDROmorphone 2 mg/ml ISec IVP PRN ×3 (13:00→21:56)
[2017-10-23] MEDS: Sodium Chloride 0.9% 1,000 ML IV SCH ×2 (13:19→21:48)
--- NOTE | 2017-10-23 21:13 | CON ---
DATE: 10/23/2017 REASON FOR CONSULTATION: Chronic kidney disease stage 3, abdominal pain, shortness of breath, dyspnea on exertion, hypertension. HISTORY OF PRESENT ILLNESS: This is a 36-year-old young male, known to me from multiple prior evaluations, recent evaluation when he was admitted with acute pyelonephritis, had atrial fibrillation, was septic, had acute kidney injury. On this current admission, he presents with complaints of abdominal pain, nausea, vomiting, no p.o. intake for one week ?. He denies any diarrhea. He reports he had one BM yesterday. He complains of severe abdominal pain, it is diffuse. He also complains of back pain. He is on chronic pain medications for back pain. He has a history of pyelonephritis, kidney stones, obstructive uropathy, ureteral stent. The patient had a CT scan of the abdomen done in the emergency room, CT scan revealed colonic diverticula involving the sigmoid colon with pericolonic stranding, this is consistent with colitis or diverticulitis. Foci of pericolonic gas were also seen. Left ureteral stent was seen. Mild hydronephrosis of the left kidney with perinephric stranding. Few mildly enlarged retroperitoneal lymph nodes. The patient is currently being treated with acute diverticulitis with perforation. PAST MEDICAL AND SURGICAL HISTORY: Morbid obesity, severe hypertension, hypertensive heart disease, hypertensive cardiomyopathy, recurrent kidney stones, recurrent pyelonephritis, obstructive uropathy, septic shock, atrial fibrillation, acute kidney injury, chronic kidney disease stage 3, dependence on pain medication, chronic back pain. FAMILY HISTORY: Hypertension. SOCIAL HISTORY: No smoking, no alcohol use, no IV drug abuse. ALLERGIES: LUZ INHIBITORS. MEDICATIONS AT HOME: Pancrease, Aldactone 25 daily, Dilaudid, Lasix 40 b.i.d., Pepcid, Coreg 12.5 b.i.d., Eliquis 2.5 b.i.d. REVIEW OF SYSTEMS: All systems are reviewed, pertinent positives as mentioned in the history of presenting illness, rest unremarkable. PHYSICAL EXAMINATION: GENERAL: Middle-aged male, lying in bed, in moderate distress. VITAL SIGNS: Blood pressure 110/72, heart rate 90, respiratory rate 20, temperature 99.1, T-max is 99.1. HEENT: Normocephalic, atraumatic, positive pallor. NECK: Supple, no JVD. LUNGS: Bilateral equal air entry, bilateral equal expansion, no rales. CARDIAC: S1 and S2, regular rate and rhythm. No murmur, no rub. ABDOMEN: Obese, distended, soft, diffuse tenderness, bowel sounds present. EXTREMITIES: No lower extremity edema. INTAKE AND OUTPUT: Not charted. LABORATORY DATA: WBC 15, hemoglobin 11, hematocrit 35, platelets 481. Sodium 134, potassium 4.4, chloride 103, CO2 of 20, BUN 26, creatinine 1.8, glucose 98, calcium 9.8, albumin 3.5. Urinalysis yellow, cloudy, pH 5.5, specific gravity 1.025, protein 100, ketones trace, blood large, nitrite positive, leukocyte esterase moderate. Urine culture pending. Blood culture is pending. CURRENT MEDICATIONS: Dilaudid, Flagyl 500 q.8, Protonix, Reglan, Rocephin 1 gm daily, normal saline at 100, Zofran, Cipro 400 given in the emergency room. ASSESSMENT AND PLAN: 1. Acute diverticulitis with perforation 2. Pyuria, suspect urinary tract infection, ? pyelonephritis. 3. Acute kidney injury superimposed on chronic kidney disease stage 3. 4. Hypertension. 5. Morbid obesity. 6. Hypertensive heart disease, cardiomyopathy, left ventricular hypertrophy. 7. History of obstructive uropathy, left hydronephrosis, left ureteral stent. PLAN 1. Follow up cultures. 2. Continue IV fluids. 3. Continue to hold Lasix. 4. Continue empiric antibiotics to cover for GI source. 5. Close surgical followup. 6. Urology consultation with Dr. Lange. 7. More recommendations to follow as information comes back. Thank you for the courtesy of this consultation. Angelica Don MD
--- NOTE | 2017-10-23 21:34 | HP ---
HISTORY OF PRESENT ILLNESS: The patient is a 36-year-old known to me from multiple previous admission. The patient states he is having abdominal pain almost going on for 1 week. He has been vomiting pain got worse yesterday, so he came to Emergency Room for further evaluation. PAST MEDICAL HISTORY: 1. He has significant past medical history for morbid obesity. 2. Cardiomyopathy. 3. Chronic kidney disease. 4. History of hypertension. 5. Recurrent chronic pancreatitis. 6. Chronic anemia. 7. Nephrolithiasis, status post stent placement. 8. Recurrent urinary tract infection. 9. Nonischemic cardiomyopathy. 10. History of alcohol abuse in the past. 11. History of left hydronephrosis, had ureteral stent placement with improvement of his kidney function. 12. History of diverticulosis. PAST SURGICAL HISTORY: Significant for cholecystectomy. ALLERGIES: HE HAS ALLERGIC TO LUZ INHIBITOR CAUSING HIM LIP SWELLING. MEDICATIONS AT HOME: He is on Aldactone, carvedilol. He is on Eliquis, Lasix 40 mg twice a day and he is taking pancreatic enzymes. SOCIAL HISTORY: He is single lives with his parents. Still smokes, but does not drink anymore. REVIEW OF SYSTEMS: Significant for abdominal pain and feeling nauseous. PHYSICAL EXAMINATION: GENERAL: He is awake, alert, oriented, communicative. VITAL SIGNS: He is afebrile. Temperature 99.1, pulse 90, respiration 20, blood pressure 110/72. LUNGS: Bilateral fair airflow. No rhonchi or crackle. HEART: S1 and S2, audible. ABDOMEN: Soft, obese, slight discomfort in the left upper and left lower lobe quadrant. NEUROLOGIC: He is awake, alert, oriented, communicative. LABORATORY DATA: WBC is 15, hemoglobin 11.2, hematocrit 34.6, platelet of 481. Chemistry; sodium 134, potassium 4.4, chloride 103, CO2 of 20, BUN 26, creatinine 1.8, blood sugar of 98. Urine drug scree positive for opiate. He has CT scan of the abdomen and pelvis done yesterday that showed sigmoid colon diverticula with pericolonic stranding consistent with colitis versus diverticulitis with the foci of pericolonic gas visualized adjacent to the sigmoid colon consistent with perforation. Left ureteral stent is also visualized. ASSESSMENT: 1. Acute diverticulitis. 2. Nonischemic cardiomyopathy. 3. Recurrent pancreatis. 4. Hypertension. 5. Leukocytosis, improving. 6. Renal insufficiency. PLAN: We will keep the patient n.p.o. We will give IV fluid. Surgical team has been consulted. Given analgesic. Followup electrolyte. Followup patient in a.m. Sammy Santiago MD
[2017-10-24] MEDS: HYDROmorphone 2 mg/ml ISec IVP PRN ×6 (01:53→22:42)
[2017-10-24] MEDS: metroNIDAZOLE IV 500 mg/100 ml 500 MG/100 ML BAG IVPB SCH ×3 (06:08→21:25)
[2017-10-24 07:36] LABS: ALB/GLOB RATIO 0.8 (1.1-1.8); ALBUMIN 3.5 g/dL (3.0-4.8); ALT/SGPT 21 U/L (7-56); AST/SGOT 33 U/L (17-59); BLOOD UREA NITROGEN 22 mg/dL (7-21); CALCIUM 9.5 mg/dL (8.4-10.5); GFR AFRICAN-AMERICAN > 60; GFR NON-AFRICAN AMERICAN 52
[2017-10-24 08:01] LABS: BASO # 0.02 K/mm3 (0.0-2.0); BASO % 0.2 % (0.0-3.0); EOS # 0.2 (0.0-0.7); EOS % 1.8 % (1.5-5.0); GRAN # 6.13 (1.4-6.5); GRAN % 60.8 % (50.0-68.0); HEMOGLOBIN 10.6 g/dL (14.0-18.0); LYMPH # 1.7 (1.2-3.4); LYMPH % 17.2 % (22.0-35.0); MEAN CELL VOLUME 92.2 fl (80.0-105.0); MEAN CORPUSCULAR HEMOGLOBIN 29.4 pg (25.0-35.0); MEAN CORPUSCULAR HGB CONC 31.8 g/dl (31.0-37.0); RBC 3.61 10^6/uL (3.5-6.1); RED CELL DISTRIBUTION WIDTH 15.1 % (11.5-14.5); WHITE BLOOD COUNT 10.1 10^3/ul (4.5-11.0)
[2017-10-24] MEDS: cefTRIAXone 1 gm 1 GM/100 ML BAG IVPB SCH (11:00)
--- NOTE | 2017-10-24 11:29 | CP.PCM.PN ---
<VeraBobby - Last Filed: 10/24/17 13:32> Subjective - Date & Time of Evaluation Date of Evaluation: 10/24/17 Time of Evaluation: 07:40 - Subjective Subjective: Surgery Progress note. Dr. Coyle Pt seen and examined at bedside. No acute events overnight. No F/C. No N/V/D. Still no appetite. Does request water and ice chips. Abd pain improved mildly. No new complaints. Objective - Vital Signs/Intake and Output Vital Signs (last 24 hours): Temp Pulse Resp BP Pulse Ox 97.9 F 88 20 120/81 98 10/24/17 00:00 10/24/17 00:00 10/24/17 00:00 10/24/17 00:00 10/24/17 00:00 Intake and Output: 10/24/17 10/24/17 06:59 18:59 Intake Total 240 Output Total 950 Balance -710 - Medications Medications: Current Medications Hydromorphone HCl (Dilaudid) 1 mg IVP Q4H PRN PRN Reason: Pain, moderate (4-7) Last Admin: 10/23/17 09:01 Dose: 1 mg Hydromorphone HCl (Dilaudid) 2 mg IVP Q4H PRN PRN Reason: Pain, severe (8-10) Last Admin: 10/24/17 10:34 Dose: 2 mg Metronidazole (Flagyl) 500 mg in 100 mls @ 100 mls/hr IVPB Q8 [facility] PRN Reason: Protocol Last Admin: 10/24/17 06:08 Dose: 100 mls/hr Ceftriaxone Sodium (Rocephin 1 Gram Ivpb) 1 gm in 100 mls @ 100 mls/hr IVPB DAILY [facility] PRN Reason: Protocol Last Admin: 10/24/17 11:00 Dose: 100 mls/hr Sodium Chloride (Sodium Chloride 0.9%) 1,000 mls @ 100 mls/hr IV .Q10H [facility] Last Admin: 10/23/17 21:48 Dose: 100 mls/hr Metoclopramide HCl (Reglan) [address] [facility] Last Admin: 10/24/17 08:22 Dose: 5 mg Ondansetron HCl (Zofran Inj) 4 mg IVP Q6H PRN PRN Reason: Nausea/Vomiting Last Admin: 10/23/17 09:00 Dose: 4 mg Pantoprazole Sodium (Protonix Inj) 40 mg IVP DAILY [facility] Last Admin: 10/24/17 10:34 Dose: 40 mg - Labs Labs: 10/24/17 06:30 10/24/17 06:30 PT 15.0 SECONDS (9.4-12.5) H 10/22/17 16:45 INR 1.31 (0.93-1.08) H 10/22/17 16:45 APTT 37.7 Seconds (25.1-36.5) H 10/22/17 16:45 - Constitutional Appears: Non-toxic, No Acute Distress - Head Exam Head Exam: ATRAUMATIC, NORMAL INSPECTION, NORMOCEPHALIC - Eye Exam Eye Exam: EOMI, Normal appearance - ENT Exam ENT Exam: Mucous Membranes Moist - Respiratory Exam Respiratory Exam: NORMAL BREATHING PATTERN. absent: Accessory Muscle Use, Respiratory Distress - Cardiovascular Exam Cardiovascular Exam: absent: JVD - GI/Abdominal Exam GI & Abdominal Exam: Soft. absent: Distended, Firm, Guarding, Rigid, Rebound Additional comments: mild tenderness to LLQ - Extremities Exam Extremities Exam: Normal Inspection. absent: Calf Tenderness - Neurological Exam Neurological Exam: Alert, Awake, Oriented x3 - Psychiatric Exam Psychiatric exam: Normal Affect, Normal Mood - Skin Skin Exam: Dry, Intact, Normal Color, Warm Assessment and Plan - Assessment and Plan (Free Text) Assessment: 36yo M with multiple co-morbidities here with acute sigmoid diverticulitis with microperforation Plan: - continue to monitor closely, serial abd exams - Trial of Clears today. Will advance very conservatively - Continue IV Abx and IVF - No surgical intervention at this time. Continue conservative management - Recommend antiembolism leg stockings, SCDs, and Heparin SC Further recs as per Dr. Leonides Gamez PGY1 Surgery pager: [phone] <Darrell Coyle - Last Filed: 10/25/17 20:10> Objective - Vital Signs/Intake and Output Vital Signs (last 24 hours): Temp Pulse Resp BP Pulse Ox 98.3 F 88 18 120/81 98 10/25/17 08:18 10/25/17 08:18 10/25/17 08:18 10/25/17 08:18 10/25/17 08:18 - Medications Medications: Current Medications Heparin Sodium (Porcine) (Heparin) 5,000 units SC Q8 [facility] PRN Reason: Protocol Hydromorphone HCl (Dilaudid) 1 mg IVP Q4H PRN PRN Reason: Pain, moderate (4-7) Hydromorphone HCl (Dilaudid) 2 mg IVP Q4H PRN PRN Reason: Pain, severe (8-10) Last Admin: 10/25/17 19:47 Dose: 2 mg Metronidazole (Flagyl) 500 mg in 100 mls @ 100 mls/hr IVPB Q8 [facility] PRN Reason: Protocol Ceftriaxone Sodium (Rocephin 1 Gram Ivpb) 1 gm in 100 mls @ 100 mls/hr IVPB DAILY [facility] PRN Reason: Protocol Sodium Chloride (Sodium Chloride 0.9%) 1,000 mls @ 40 mls/hr IV .Q24H [facility] Metoclopramide HCl (Reglan) 5 mg IVP ACHS [facility] Ondansetron HCl (Zofran Inj) 4 mg IVP Q6H PRN PRN Reason: Nausea/Vomiting Pantoprazole Sodium (Protonix Inj) 40 mg IVP DAILY [facility] - Labs Labs: 10/24/17 06:30 10/24/17 06:30 PT 15.0 SECONDS (9.4-12.5) H 10/22/17 16:45 INR 1.31 (0.93-1.08) H 10/22/17 16:45 APTT 37.7 Seconds (25.1-36.5) H 10/22/17 16:45 Assessment and Plan - Assessment and Plan (Free Text) Assessment: Patient was seen, evaluated and examined by me. I agree with the assessment and plan as per the resident's note.
--- NOTE | 2017-10-24 15:23 | PN ---
DATE: 10/24/2017 SUBJECTIVE: The patient is seen lying in bed. He seems to be sleeping comfortably. Discussed with nursing staff. The patient is very particular about his pain medications. No diarrhea. No BM. Still complains of nausea. Complains of back pain. PHYSICAL EXAMINATION: GENERAL: Obese middle-aged male lying in bed. VITAL SIGNS: Blood pressure 120/81, heart rate 88, respiratory rate 20, temperature 97.1, and T-max is 99. HEENT: Normocephalic, atraumatic. Positive pallor. NECK: Supple. No JVD. LUNGS: Bilateral equal entry, bilateral equal expansion, no rales, no rhonchi. CARDIAC: S1 and S2. Regular rate and rhythm, no murmur, no rub. ABDOMEN: Obese, distended, soft, bowel sounds present. EXTREMITIES: Trace lower extremity edema. INTAKE AND OUTPUT: 240/1350. LABORATORY DATA: WBC 10, hemoglobin 10.6, hematocrit 33, and platelets 488. Sodium 134, potassium 4.2, chloride 104, CO2 19, BUN 22, creatinine 1.5, glucose 90, calcium 9.5, and albumin 3.5. Blood culture no growth so far. CURRENT MEDICATIONS: Dilaudid, Flagyl 500 q.8, heparin, Protonix, Reglan, ceftriaxone 1 g daily, normal saline at 100, and Zofran. ASSESSMENT: 1. Resolved acute kidney injury, underlying chronic kidney disease stage III. 2. Acute diverticulitis with ruptured diverticulum? 3. Pyuria, suspect urinary tract infection again. 4. History of left pyelonephritis, left ureteral stent, left kidney stones. 5. Recurrent episodes of acute kidney injury. 6. Morbid obesity. 7. History of pancreatitis. PLAN: 1. Change IV fluids to 40 mL/hour. 2. Continue antibiotics as per ID recommendations. 3. Continue current antihypertensive regimen. 4. Followup urine culture. 5. Surgical followup. Angelica Don MD
[2017-10-24] MEDS: Sodium Chloride 0.9% 1,000 ML IV SCH (18:48)
--- NOTE | 2017-10-24 21:49 | PN ---
DATE: SUBJECTIVE: The patient is 36-year-old seen and examined, states abdominal pain is somewhat better. He has left flank pain. No hematuria. No nausea. No diarrhea. PHYSICAL EXAMINATION: VITAL SIGNS: He is afebrile, pulse 88, respirations 20, blood pressure 129/87. LUNGS: Bilateral fair airflow. No rhonchi or crackles. HEART: S1 and S2 audible. ABDOMEN: Soft. Obese. No rebound. No guarding. NEUROLOGIC: He is awake and alert. Able to communicate. LABORATORY DATA: WBC 10, hemoglobin 10.6, hematocrit 33, platelets are 488. Chemistry: Sodium 134, potassium 4.2, chloride 104, CO2 of 19, BUN 22, creatinine 1.5, blood sugar of 90. Urine culture shows Gram-negative rods . Blood cultures negative. ASSESSMENT: 1. Nonspecific colitis. 2. Nephrolithiasis, status post stent placement. 3. Morbid obesity. 4. Hypertension. 5. Nonischemic cardiomyopathy. PLAN: We will follow up her urine sensitivity. We will continue on analgesics. He is on metronidazole, DVT prophylaxis, Protonix, and Rocephin. We will start him on liquid diet and see his response. Sammy Santiago MD
[2017-10-25] MEDS: HYDROmorphone 2 mg/ml ISec IVP PRN ×6 (02:47→23:44)
[2017-10-25] MEDS: metroNIDAZOLE IV 500 mg/100 ml 500 MG/100 ML BAG IVPB SCH ×3 (05:42→22:23)
--- NOTE | 2017-10-25 08:45 | CON ---
DATE: 10/24/2017 CHIEF COMPLAINT: Abdominal pain. HISTORY OF PRESENT ILLNESS: This is a 36-year-old male who is known to me. Patient is seen in [facility]. He was admitted for worsening abdominal pain, which he has had for approximately one week. He has a history of kidney stones, poorly controlled diabetes. He has a ureteral stent in place. He has multiple significant medical issues. He was recommended in the past to go to a specialist in [place] for treatment of his stones and the patient has not followed up as scheduled. He is noncompliant with his medications and is now admitted with abdominal pain. Reportedly, the patient had a perforation of a diverticulum. He is being treated for that. As far as his urine goes, the patient has chronic urinary frequency and urgency with the stent in place. He has no current fever or chills. PAST MEDICAL HISTORY: Significant for morbid obesity, cardiomyopathy, chronic kidney disease, hypertension, chronic recurrent pancreatitis, anemia, nephrolithiasis, alcohol abuse in the past and diverticulosis. MEDICATIONS: Include Aldactone, Coreg, Eliquis, Lasix, Dilaudid, Flagyl, subcutaneous heparin, Reglan, Rocephin and Zofran. ALLERGIES: ALLERGIC TO LUZ INHIBITORS. FAMILY HISTORY: Noncontributory. SOCIAL HISTORY: Denies any recent smoking or EtOH use. Did use EtOH heavily in the past. REVIEW OF SYSTEMS: Positive for abdominal pain, positive for nausea. Positive for urinary frequency, urgency, kidney stones. Positive for back pain, positive for joint pain, positive for numbness. Other systems are negative. PHYSICAL EXAMINATION: GENERAL: The patient is awake, alert, answering questions. He is in no acute distress. VITAL SIGNS: He is afebrile. Temperature 97.9, pulse 88, BP 120/81, respirations are 20. NECK: Supple. There is no adenopathy noted. CHEST: Revealed normal inspiratory effort. CARDIAC: Exam showed a positive S1, S2. ABDOMEN: There is mild peripheral edema noted on abdominal exam. Abdomen is morbidly obese, soft. There is mild diffuse tenderness. There is no rebound or guarding. There is questionable mild left CVA tenderness. : Phallus is normal. Scrotum is normal. Testes are bilaterally descended, nontender, no masses. Epididymis are normal. EXTREMITIES: No cyanosis. There is mild edema. LABORATORY EXAM: WBC count was 19.4, this has come down to 10.1. GFR now greater than 60. BUN has come down with hydration. LDH is low. Creatine kinase is low. Lipase is elevated. Urinalysis showed positive nitrites, large blood, too numerous to count rbc, too numerous to count wbc. Blood culture, no growth after 24 hours. Urine culture pending. On imaging exam, the patient had a CT scan of the chest, abdomen and pelvis. The kidney show a left ureteral stent in place. There was mild hydronephrosis with perinephric stranding. Pyelonephritis could not be excluded. There is a 1.5 x 5 cm nonobstructing stone at the lower pole of the left kidney. There is a hyperdense cyst with dilated calyx at the upper pole of the left kidney. Bladder was decompressed, no stones. There are colonic diverticula involving the sigmoid with pericolonic stranding consistent with colitis or diverticulitis. There are foci of pericolonic gas visualized adjacent to the sigmoid colon consistent with a perforation. There are some mildly enlarged retroperitoneal lymph nodes. Chest CT showed some mild emphysematous changes. There is a thyroid nodule noted. There is a small pericardial effusion with enlargement of the left atrium. IMPRESSION AND PLAN: This is a morbidly obese, noncompliant diabetic patient. The patient has been recommended multiple times of what to do with his kidney stones. The patient should have an extracorporeal shock wave lithotripsy, however, the weight limit of the extracorporeal shock wave lithotripsy table is exceeded as the patient reports he weighs 390 pounds. The patient was recommended to a specialist in [place] for management of his stone disease. The patient is extremely high risk for any surgical procedure. He has poorly controlled diabetes. He has cardiomyopathy. He is on blood thinners. He now has a perforated diverticulum. He has a history of chronic pancreatitis. He has a pericardial effusion and emphysematous changes noted on his CAT scan. I discussed with the patient again that we do not have the equipment and/or the expertise to manage his stone disease here. Again, the patient is extremely high risk. He currently has a stent in place and is not obstructed. The only treatment I would be able to offer him is a stent change which we will plan on in a few months if he is unable to go for further stone treatment. The patient reports he would like the names of other urologist in [place] and I spoke with him that we already gave him names of urologist who specialize in management of upper-tract stones in high risk patients. For now, nothing needs to be done other than treatment of his perforated diverticulitis. When the patient's condition has improved, he should follow up with the urologist who was recommended. If the patient wishes to see somebody else, he can find someone who specializes in taking care of stones in high risk patients. I discussed with the patient that if his medical condition improved and he was able to lose the required weight, we could consider an extracorporeal shock wave lithotripsy, but again he is high risk for any surgical procedure given his underlying medical condition. Kamari Love MD
[2017-10-25] MEDS: cefTRIAXone 1 gm 1 GM/100 ML BAG IVPB SCH (11:14)
--- NOTE | 2017-10-25 13:50 | CP.PCM.PN ---
<Bobby Gamez - Last Filed: 10/25/17 16:31> Subjective - Date & Time of Evaluation Date of Evaluation: 10/25/17 Time of Evaluation: 10:00 - Subjective Subjective: Surgery Progress note. Dr. Coyle Pt seen and examined at bedside. no acute events overnight. No F/C. Abdominal pain improving. No new complaints. Objective - Vital Signs/Intake and Output Vital Signs (last 24 hours): Temp Pulse Resp BP Pulse Ox 98.3 F 88 18 120/81 98 10/25/17 08:18 10/25/17 08:18 10/25/17 08:18 10/25/17 08:18 10/25/17 08:18 Intake and Output: 10/25/17 10/25/17 06:59 18:59 Intake Total 780 Output Total 1450 Balance -670 - Medications Medications: Current Medications Heparin Sodium (Porcine) (Heparin) 5,000 units SC Q8 [facility] PRN Reason: Protocol Last Admin: 10/25/17 05:42 Dose: 5,000 units Hydromorphone HCl (Dilaudid) 1 mg IVP Q4H PRN PRN Reason: Pain, moderate (4-7) Last Admin: 10/23/17 09:01 Dose: 1 mg Hydromorphone HCl (Dilaudid) 2 mg IVP Q4H PRN PRN Reason: Pain, severe (8-10) Last Admin: 10/25/17 11:12 Dose: 2 mg Metronidazole (Flagyl) 500 mg in 100 mls @ 100 mls/hr IVPB Q8 [facility] PRN Reason: Protocol Last Admin: 10/25/17 05:42 Dose: 100 mls/hr Ceftriaxone Sodium (Rocephin 1 Gram Ivpb) 1 gm in 100 mls @ 100 mls/hr IVPB DAILY [facility] PRN Reason: Protocol Last Admin: 10/25/17 11:14 Dose: 100 mls/hr Sodium Chloride (Sodium Chloride 0.9%) 1,000 mls @ 40 mls/hr IV .Q24H [facility] Last Admin: 10/24/17 18:48 Dose: 40 mls/hr Metoclopramide HCl (Reglan) 5 mg IVP ACHS [facility] Last Admin: 10/25/17 06:49 Dose: 5 mg Ondansetron HCl (Zofran Inj) 4 mg IVP Q6H PRN PRN Reason: Nausea/Vomiting Last Admin: 10/23/17 09:00 Dose: 4 mg Pantoprazole Sodium (Protonix Inj) 40 mg IVP DAILY [facility] Last Admin: 10/25/17 11:14 Dose: 40 mg - Labs Labs: 10/24/17 06:30 10/24/17 06:30 PT 15.0 SECONDS (9.4-12.5) H 10/22/17 16:45 INR 1.31 (0.93-1.08) H 10/22/17 16:45 APTT 37.7 Seconds (25.1-36.5) H 10/22/17 16:45 - Constitutional Appears: Non-toxic, No Acute Distress, Other (Obese) - Head Exam Head Exam: ATRAUMATIC, NORMAL INSPECTION, NORMOCEPHALIC - Eye Exam Eye Exam: EOMI - ENT Exam ENT Exam: Mucous Membranes Moist - Respiratory Exam Respiratory Exam: NORMAL BREATHING PATTERN. absent: Accessory Muscle Use, Respiratory Distress - GI/Abdominal Exam GI & Abdominal Exam: Soft. absent: Distended, Firm, Guarding, Rigid, Rebound Additional comments: mild tenderness to palpation LLQ - Extremities Exam Extremities Exam: Normal Inspection. absent: Calf Tenderness - Neurological Exam Neurological Exam: Alert, Awake, Oriented x3 - Psychiatric Exam Psychiatric exam: Normal Affect, Normal Mood - Skin Skin Exam: Dry, Intact, Normal Color, Warm Assessment and Plan - Assessment and Plan (Free Text) Assessment: 36yo M with multiple co-morbidities here with acute sigmoid diverticulitis with microperforation Plan: - May advance diet to FLD - Continue IVF - Continue Abx - Will repeat CT Abd/Pelvis with PO contrast tomorrow AM - continue to monitor closely, serial abd exams - No surgical intervention at this time. Continue conservative management Further recs as per Dr. Leonides Gamez PGY1 Surgery pager: [phone] <Darrell Coyle - Last Filed: 10/25/17 20:14> Objective - Vital Signs/Intake and Output Vital Signs (last 24 hours): Temp Pulse Resp BP Pulse Ox 98.3 F 88 18 120/81 98 10/25/17 08:18 10/25/17 08:18 10/25/17 08:18 10/25/17 08:18 10/25/17 08:18 - Medications Medications: Current Medications Heparin Sodium (Porcine) (Heparin) 5,000 units SC Q8 [facility] PRN Reason: Protocol Hydromorphone HCl (Dilaudid) 1 mg IVP Q4H PRN PRN Reason: Pain, moderate (4-7) Hydromorphone HCl (Dilaudid) 2 mg IVP Q4H PRN PRN Reason: Pain, severe (8-10) Last Admin: 10/25/17 19:47 Dose: 2 mg Metronidazole (Flagyl) 500 mg in 100 mls @ 100 mls/hr IVPB Q8 [facility] PRN Reason: Protocol Ceftriaxone Sodium (Rocephin 1 Gram Ivpb) 1 gm in 100 mls @ 100 mls/hr IVPB DAILY [facility] PRN Reason: Protocol Sodium Chloride (Sodium Chloride 0.9%) 1,000 mls @ 40 mls/hr IV .Q24H [facility] Metoclopramide HCl (Reglan) 5 mg IVP ACHS [facility] Ondansetron HCl (Zofran Inj) 4 mg IVP Q6H PRN PRN Reason: Nausea/Vomiting Pantoprazole Sodium (Protonix Inj) 40 mg IVP DAILY [facility] - Labs Labs: 10/24/17 06:30 10/24/17 06:30 PT 15.0 SECONDS (9.4-12.5) H 10/22/17 16:45 INR 1.31 (0.93-1.08) H 10/22/17 16:45 APTT 37.7 Seconds (25.1-36.5) H 10/22/17 16:45 Assessment and Plan - Assessment and Plan (Free Text) Assessment: Patient was seen, evaluated and examined by me. I agree with the assessment and plan as per the resident's note.
[2017-10-25] MEDS: Sodium Chloride 0.9% 1,000 ML IV SCH (15:38)
[2017-10-25] MEDS ORDERED: HYDROmorphone 1 mg/ml ISec IVP PRN (19:42)
--- NOTE | 2017-10-25 19:44 | PN ---
DATE: 10/25/2017 SUBJECTIVE: The patient is seen lying in bed. He is awake, he is alert. He reports he is feeling better. Currently pain is controlled because he is getting pain medication. He denies any diarrhea. He denies any nausea. He reports he is getting Reglan. PHYSICAL EXAMINATION: GENERAL: Middle-aged obese male lying in bed. VITAL SIGNS: Blood pressure 120/81, heart rate 88, respiratory rate 18, temperature 98. HEENT: Normocephalic, atraumatic, positive pallor. NECK: Supple, no JVD. LUNGS: Bilateral equal air entry, bilateral equal expansion, no rales. CARDIAC: S1 and S2. Regular, rate and rhythm. No murmur, no rub. ABDOMEN: Obese, distended, soft, nontender, bowel sounds present. EXTREMITIES: Trace lower extremity edema. INTAKE AND OUTPUT: 1020/1750. LABORATORY DATA: . No new labs today. CURRENT MEDICATIONS: Dilaudid, Flagyl 500 q. 8 h., heparin, Protonix, Reglan, Rocephin 1 g daily, normal saline at 40, and Zofran. ASSESSMENT: 1. Acute kidney injury superimposed on chronic kidney disease stage III, resolving acute kidney injury, prerenal azotemia. 2. Diverticulitis with ruptured diverticulum. 3. Recurrent urinary tract infection, Klebsiella urinary tract infection, left kidney stones, left obstructive uropathy, left ureteral stent. 4. Morbid obesity. 5. Severe hypertension. 6. Hypertensive heart disease. PLAN: 1. Continue low-dose IV fluids. 2. Check labs in a.m. 3. Continue antibiotics as per ID recommendations. 4. Slowing nephrotoxins. 5. Surgical followup. Angelica Don MD
--- NOTE | 2017-10-26 02:04 | PN ---
DATE: SUBJECTIVE: The patient is a 36-year-old, seen and examined, states his abdominal pain is better. His flank pain has improved somewhat. No more hematuria, tolerating liquid diet. No vomiting. No rectal bleeding. No diarrhea. PHYSICAL EXAMINATION: VITAL SIGNS: He is afebrile, pulse 88, respirations 18, and blood pressure 120/81. LUNGS: Bilateral fair airflow. No rhonchi or crackle. HEART: S1 and S2 audible. ABDOMEN: Soft, obese, nontender. No rebound. No guarding. NEUROLOGIC: He is awake and alert, able to communicate. Moves all extremities. EXTREMITIES: Bilateral leg, no edema. LABORATORY DATA: There is no new lab available today. ASSESSMENT: 1. Acute diverticulitis, questionable perforation, seems to be improving conservatively, no evidence of peritonitis, discussed with the surgeon, will be treated conservatively. 2. Nonischemic cardiomyopathy. 3. Morbid obesity. 4. Acute on chronic kidney disease, improving. 5. Hypertension. 6. Recurrent pancreatitis. 7. Nephrolithiasis, status post stent placement. PLAN: We will start the patient on clear liquid. Continue him on metronidazole and Rocephin. Analgesic as needed. Dr. Lange's input noted and appreciated. Once the patient improved from GI issue, he will be referred to urologist to deal with his nephrolithiasis issue and stent replacement. Sammy Santiago MD
[2017-10-26] MEDS: HYDROmorphone 2 mg/ml ISec IVP PRN ×3 (03:47→11:26)
[2017-10-26] MEDS: metroNIDAZOLE IV 500 mg/100 ml 500 MG/100 ML BAG IVPB SCH ×3 (05:51→22:13)
[2017-10-26] MEDS ORDERED: Barium Sulfate Susp 2.1% w/v, 2.0% w/w 450 mL Bottle PO ONE (07:12)
[2017-10-26 07:24] LABS: BASO # 0.01 K/mm3 (0.0-2.0); BASO % 0.1 % (0.0-3.0); EOS # 0.1 (0.0-0.7); EOS % 1.3 % (1.5-5.0); GRAN # 5.22 (1.4-6.5); GRAN % 60.9 % (50.0-68.0); HEMOGLOBIN 10.8 g/dL (14.0-18.0); LYMPH # 2.3 (1.2-3.4); LYMPH % 26.8 % (22.0-35.0); MEAN CELL VOLUME 92.1 fl (80.0-105.0); MEAN CORPUSCULAR HEMOGLOBIN 29.5 pg (25.0-35.0); MEAN PLATELET VOLUME 9.8 fl (7.0-11.0); MONO # 0.9 (0.1-0.6); MONO % 10.9 % (1.0-6.0); RBC 3.66 10^6/uL (3.5-6.1); WHITE BLOOD COUNT 8.6 10^3/ul (4.5-11.0)
[2017-10-26 07:58] LABS: ALB/GLOB RATIO 0.7 (1.1-1.8); ALBUMIN 3.1 g/dL (3.0-4.8); ALT/SGPT 26 U/L (7-56); AST/SGOT 23 U/L (17-59); BLOOD UREA NITROGEN 9 mg/dL (7-21); CALCIUM 9.6 mg/dL (8.4-10.5); GFR AFRICAN-AMERICAN > 60; GFR NON-AFRICAN AMERICAN > 60
[2017-10-26] MEDS: cefTRIAXone 1 gm 1 GM/100 ML BAG IVPB SCH (09:49)
[2017-10-26] MEDS ORDERED: cefTRIAXone 1 gm 1 GM/100 ML BAG IVPB SCH ×2 (10:00)
--- NOTE | 2017-10-26 12:59 | CT ---
PROCEDURE: CT Abdomen and Pelvis without IV contrast. HISTORY: eval diverticulitis COMPARISON: CT of the chest, abdomen, and pelvis performed 10/22/17 TECHNIQUE: Contiguous axial images of the abdomen and pelvis. Oral contrast was administered. No IV contrast given. Coronal and Sagittal reformats generated and reviewed. Radiation dose: Total exam DLP = 1529.89 mGy-cm. This CT exam was performed using one or more of the following dose reduction techniques: Automated exposure control, adjustment of the mA and/or kV according to patient size, and/or use of iterative reconstruction technique. FINDINGS: There is limited evaluation of the solid organs without the administration of IV contrast. LOWER THORAX: Bibasilar atelectasis. There is no visible pleural effusion or pneumothorax. LIVER: Unremarkable unenhanced appearance. GALLBLADDER AND BILE DUCTS: Cholecystectomy. PANCREAS: Mild atrophic changes. SPLEEN: Unremarkable unenhanced appearance. ADRENALS: Unremarkable unenhanced appearance. KIDNEYS AND URETERS: Left ureteral stent. Moderate left-sided hydronephrosis and perinephric stranding re-identified. Left lower pole calculus measures approximately 6 x 13 mm, nonobstructing. Left upper pole cyst versus dilated jaswinder re-identified measuring approximately 2.9 cm. Hypodense fluid versus exophytic cyst measuring approximately 2.3 cm, posterior left kidney. No obstructing calculus or hydronephrosis on the right. BLADDER: The urinary bladder appears unremarkable. REPRODUCTIVE: Unremarkable. APPENDIX: The appendix appears within normal limits of caliber. No secondary signs of acute appendicitis. BOWEL: The stomach is nondistended. The bowel loops appear within normal limits of caliber without evidence of intestinal obstruction. Evidence of acute diverticulitis involving the sigmoid colon with evidence of adjacent pericolonic gas consistent with perforation. PERITONEUM: No significant free fluid. LYMPH NODES: No bulky lymphadenopathy identified. VASCULATURE: No aortic aneurysm. BONES: Sclerotic right sacroiliac arthropathy. Hypertrophic degenerative changes. OTHER FINDINGS: Small lipoma or focal fatty prominence, anterior right thigh. IMPRESSION: Evidence of acute diverticulitis involving the sigmoid colon with evidence of adjacent pericolonic gas consistent with perforation. Left ureteral stent. Moderate left-sided hydronephrosis and perinephric stranding re-identified. Left lower pole calculus measures approximately 6 x 13 mm, nonobstructing. Left upper pole cyst versus dilated jaswinder re-identified measuring approximately 2.9 cm. Hypodense fluid versus exophytic cyst measuring approximately 2.3 cm, posterior left kidney. Additional findings as above.
[2017-10-26] MEDS: HYDROmorphone 1 mg/ml ISec IVP PRN ×3 (14:36→22:13)
[2017-10-26] MEDS: Sodium Chloride 0.9% 1,000 ML IV SCH (14:37)
--- NOTE | 2017-10-26 16:34 | CP.PCM.PN ---
Subjective - Date & Time of Evaluation Date of Evaluation: 10/26/17 Time of Evaluation: 07:00 - Subjective Subjective: GENERAL SURGERY PROGRESS NOTE FOR DR. HARRELL Patient seen and examined at bedside. Patient states that he didn't like the full liquid diet because of the dairy products. He had a small bowel movement last night. Objective - Vital Signs/Intake and Output Vital Signs (last 24 hours): Temp Pulse Resp BP Pulse Ox 97.8 F 61 20 137/84 98 10/26/17 07:30 10/26/17 07:30 10/26/17 07:30 10/26/17 07:30 10/26/17 07:30 Intake and Output: 10/26/17 10/26/17 06:59 18:59 Intake Total 1140 Output Total 700 Balance 440 - Medications Medications: Current Medications Heparin Sodium (Porcine) (Heparin) 5,000 units SC Q8 [facility] PRN Reason: Protocol Last Admin: 10/26/17 14:39 Dose: 5,000 units Hydromorphone HCl (Dilaudid) 1 mg IVP Q3 PRN PRN Reason: Pain, moderate (4-7) Last Admin: 10/26/17 14:36 Dose: 1 mg Metronidazole (Flagyl) 500 mg in 100 mls @ 100 mls/hr IVPB Q8 [facility] PRN Reason: Protocol Last Admin: 10/26/17 14:37 Dose: 100 mls/hr Ceftriaxone Sodium (Rocephin 1 Gram Ivpb) 1 gm in 100 mls @ 100 mls/hr IVPB DAILY [facility] PRN Reason: Protocol Last Admin: 10/26/17 09:49 Dose: 100 mls/hr Sodium Chloride (Sodium Chloride 0.9%) 1,000 mls @ 40 mls/hr IV .Q24H [facility] Last Admin: 10/26/17 14:37 Dose: 40 mls/hr Metoclopramide HCl (Reglan) 5 mg IVP ACHS [facility] Last Admin: 10/26/17 12:30 Dose: 5 mg Ondansetron HCl (Zofran Inj) 4 mg IVP Q6H PRN PRN Reason: Nausea/Vomiting Pantoprazole Sodium (Protonix Inj) 40 mg IVP DAILY [facility] Last Admin: 10/26/17 09:50 Dose: 40 mg - Labs Labs: 10/26/17 06:30 10/26/17 06:30 PT 15.0 SECONDS (9.4-12.5) H 10/22/17 16:45 INR 1.31 (0.93-1.08) H 10/22/17 16:45 APTT 37.7 Seconds (25.1-36.5) H 10/22/17 16:45 - Constitutional Appears: Non-toxic, No Acute Distress - Head Exam Head Exam: ATRAUMATIC, NORMAL INSPECTION - Respiratory Exam Respiratory Exam: NORMAL BREATHING PATTERN. absent: Respiratory Distress - Cardiovascular Exam Cardiovascular Exam: +S1, +S2 - GI/Abdominal Exam GI & Abdominal Exam: Soft, Tenderness (mild tenderness in periumbilical area). absent: Distended, Firm, Guarding, Rigid, Rebound - Neurological Exam Neurological Exam: Alert, Awake, Oriented x3 - Psychiatric Exam Psychiatric exam: Normal Affect, Normal Mood - Skin Skin Exam: Dry, Normal Color, Warm Assessment and Plan - Assessment and Plan (Free Text) Assessment: 36yo M with multiple co-morbidities here with acute sigmoid diverticulitis with microperforation Plan: - FLD - Continue IVF - Continue Abx - Repeat CT Abd/Pelvis with PO contrast today - Serial abd exams - No surgical intervention at this time. Continue conservative management - Discussed plan with Dr. Leonides Patricia PGY-3
--- NOTE | 2017-10-26 19:28 | PN ---
DATE: SUBJECTIVE: The patient is 36-year-old, seen and examined. He states abdominal pain has improved. Unable to tolerate full liquid. He still on liquid diet. No nausea or vomiting. No hematuria. PHYSICAL EXAMINATION: VITAL SIGNS: The patient is afebrile, pulse 61, respirations 20, and blood pressure 137/84. LUNGS: Bilateral fair airflow. No rhonchi or crackle. HEART: S1 and S2 audible. ABDOMEN: Soft, obese and nontender. No rebound. No guarding. NEUROLOGIC: He is awake and alert. Able to communicate, ambulatory. LABORATORY DATA: WBC is 8.6, hemoglobin 10.8, hematocrit 33.7 and platelet 519. Chemistry; sodium 135, potassium 4.3, chloride 103, CO2 of 21, BUN 9, creatinine 1.2 and blood sugar 193. Lipase 312 on 10/22/2017. His urine culture positive for Klebsiella. CT scan of the abdomen and pelvis was repeated this morning, shows acute sigmoid diverticulitis with adjacent pericolonic stranding consistent with perforation, left ureteral stent in place, moderate left-sided hydronephrosis and perinephric stranding. ASSESSMENT: 1. Sigmoid diverticulitis, left ureteral stent because of hydronephrosis. 2. Morbid obesity. 3. Nonischemic cardiomyopathy. 4. Chronic anemia. 5. Renal insufficiency, improved. PLAN: We will continue the patient on clear liquid. Continue IV fluid. Continue on Rocephin, metronidazole and we will reevaluate patient in a.m. Sammy Santiago MD
[2017-10-26 19:40] VITALS: O2SAT 97
--- NOTE | 2017-10-26 19:41 | PN ---
DATE: 10/26/2017 SUBJECTIVE: The patient is seen sitting up in bed. He is awake. He is alert. He is comfortable. He still complains of abdominal pain. He complains of burning in the urine. He complains of shortness of breath. PHYSICAL EXAMINATION: GENERAL: Obese middle-aged male sitting in chair. VITAL SIGNS: Blood pressure 137/84, heart rate 61, respiratory rate 20, and temperature 97.8. HEENT: Normocephalic and atraumatic. Positive pallor. NECK: Supple. No JVD. LUNGS: Bilateral equal air entry, bilateral equal expansion, no rales. CARDIAC: S1 and S2, regular rate and rhythm. No murmur. No rub. ABDOMEN: Obese, distended, soft, and nontender. Bowel sounds present. EXTREMITIES: No lower extremity edema. INTAKE AND OUTPUT: 1140/700. LABORATORY DATA: WBC 8.6, hemoglobin 10.8, hematocrit 34, and platelets of 519. Sodium 135, potassium 4.3, chloride 103, CO2 of 21, BUN 9, creatinine 1.2, glucose 93, calcium 9.6, AST 43, ALT 26, and albumin 3.1. Repeat CT of the abdomen, left ureteral stent, moderate left hydro with perinephric stranding, left lower pole calculus, left upper pole cyst, no obstructing calculus or hydronephrosis on the right, acute diverticulitis involving sigmoid colon with evidence of adjacent pericolonic gas consistent with perforation. CURRENT MEDICATIONS: List reviewed including Flagyl 500 q.8 hours, Protonix, Reglan, Rocephin 1 g daily, Zofran, and Dilaudid. ASSESSMENT: 1. Acute diverticulitis with microperforation. 2. Recurrent urinary tract infection, persistent left hydronephrosis, left ureteral stent, and left calculi. 3. Morbid obesity. 4. Hypertension. 5. Acute kidney injury, resolved. 6. Underlying chronic kidney disease stage III. 7. Hypertensive heart disease. PLAN: 1. Currently, the patient is not on any antihypertensives. Blood pressure is normal. Therefore, we will continue to hold antihypertensives. We will have to restart his antihypertensives as outpatient. 2. Continue Flagyl as per ID recommendation/surgical recommendations. 3. Continue Rocephin 1 g daily, switch to p.o.? 4. Close outpatient followup. Angelica Don MD
[2017-10-27] MEDS: HYDROmorphone 1 mg/ml ISec IVP PRN ×3 (02:28→10:21)
[2017-10-27] MEDS: metroNIDAZOLE IV 500 mg/100 ml 500 MG/100 ML BAG IVPB SCH (06:31)
[2017-10-27 08:16] VITALS: BP 121/89; PULSE 80; RESP 20; TEMP 97.9
--- NOTE | 2017-10-27 08:59 | CP.PCM.PN ---
Subjective - Date & Time of Evaluation Date of Evaluation: 10/27/17 Time of Evaluation: 08:56 - Subjective Subjective: GENERAL SURGERY PROGRESS NOTE FOR DR. HARRELL Patient has been seen and examined at bedside. No overnight events reported. Patient stated that he didn't eat his diet yesterday because he was not up to it. Objective - Vital Signs/Intake and Output Vital Signs (last 24 hours): Temp Pulse Resp BP Pulse Ox 97.9 F 80 20 121/89 97 10/27/17 07:30 10/27/17 07:30 10/27/17 07:30 10/27/17 07:30 10/27/17 07:30 Intake and Output: 10/27/17 10/27/17 06:59 18:59 Intake Total 1060 Output Total 900 Balance 160 - Medications Medications: Current Medications Heparin Sodium (Porcine) (Heparin) 5,000 units SC Q8 ELSIE PRN Reason: Protocol Last Admin: 10/27/17 06:31 Dose: 5,000 units Hydromorphone HCl (Dilaudid) 1 mg IVP Q3 PRN PRN Reason: Pain, moderate (4-7) Last Admin: 10/27/17 06:30 Dose: 1 mg Metronidazole (Flagyl) 500 mg in 100 mls @ 100 mls/hr IVPB Q8 ELSIE PRN Reason: Protocol Last Admin: 10/27/17 06:31 Dose: 100 mls/hr Ceftriaxone Sodium (Rocephin 1 Gram Ivpb) 1 gm in 100 mls @ 100 mls/hr IVPB DAILY ELSIE PRN Reason: Protocol Last Admin: 10/26/17 09:49 Dose: 100 mls/hr Sodium Chloride (Sodium Chloride 0.9%) 1,000 mls @ 40 mls/hr IV .Q24H [facility] Last Admin: 10/26/17 14:37 Dose: 40 mls/hr Metoclopramide HCl (Reglan) 5 mg IVP ACHS [facility] Last Admin: 10/26/17 22:15 Dose: 5 mg Ondansetron HCl (Zofran Inj) 4 mg IVP Q6H PRN PRN Reason: Nausea/Vomiting Pantoprazole Sodium (Protonix Inj) 40 mg IVP DAILY [facility] Last Admin: 10/26/17 09:50 Dose: 40 mg - Labs Labs: 10/26/17 06:30 10/26/17 06:30 PT 15.0 SECONDS (9.4-12.5) H 10/22/17 16:45 INR 1.31 (0.93-1.08) H 10/22/17 16:45 APTT 37.7 Seconds (25.1-36.5) H 10/22/17 16:45 - Additional Findings Additional findings: - Constitutional Appears: Non-toxic, No Acute Distress - Head Exam Head Exam: ATRAUMATIC, NORMAL INSPECTION - Respiratory Exam Respiratory Exam: NORMAL BREATHING PATTERN. absent: Respiratory Distress - Cardiovascular Exam Cardiovascular Exam: +S1, +S2 - GI/Abdominal Exam GI & Abdominal Exam: Soft, Tenderness (mild tenderness in periumbilical area). absent: Distended, Firm, Guarding, Rigid, Rebound - Neurological Exam Neurological Exam: Alert, Awake, Oriented x3 - Psychiatric Exam Psychiatric exam: Normal Affect, Normal Mood - Skin Skin Exam: Dry, Normal Color, Warm Assessment and Plan - Assessment and Plan (Free Text) Assessment: 36yo M with multiple co-morbidities here with acute sigmoid diverticulitis with microperforation Abd/Pelvis CT (10/26/17): Evidence of acute diverticulitis involving the sigmoid colon with evidence of adjacent pericolonic gas consistent with perforation. Left ureteral stent. Moderate left-sided hydronephrosis and perinephric stranding re-identified. Left lower pole calculus measures approximately 6 x 13 mm, nonobstructing. Left upper pole cyst versus dilated jaswinder re-identified measuring approximately 2.9 cm. Hypodense fluid versus exophytic cyst measuring approximately 2.3 cm, posterior left kidney. Plan: - Soft HHD - Continue IVF - Continue Abx as per ID - Serial abd exams - No surgical intervention at this time. Continue conservative management - Patient is cleared for d/c if he is tolerating his diet - Further recs as per Dr. Leonides Acosta - PGY1
[2017-10-27] MEDS: cefTRIAXone 1 gm 1 GM/100 ML BAG IVPB SCH (09:11)
[2017-10-27] MEDS: Sodium Chloride 0.9% 1,000 ML IV SCH (09:11)
--- NOTE | 2017-10-28 01:42 | DS ---
HISTORY OF PRESENT ILLNESS: The patient is 36-year-old male who came in with left-sided abdominal pain with nausea almost 2 days prior coming to the hospital. The patient states his usual medications are not working. He denies any rectal bleeding. No hematuria. PAST MEDICAL HISTORY: He has significant past medical history of: 1. Morbid obesity. 2. Nonischemic dilated cardiomyopathy. 3. Hypertension. 4. Multiple episodes of acute renal failure secondary to dehydration. 5. Recurrent pancreatitis. 6. Nephrolithiasis status post stent placement. HOSPITAL COURSE: So, the patient was admitted was kept n.p.o. and was given IV fluids and IV Flagyl. He started to do well and slowly advance diet and started on clear liquids. PHYSICAL EXAMINATION: GENERAL: On examination today, he is awake, alert, oriented, and able to communicate. VITAL SIGNS: He is afebrile, pulse of 80, respirations of 20, blood pressure of 121/80. LUNGS: Bilateral fair airflow. No rhonchi or crackle. HEART: S1 and S2 audible. GASTROINTESTINAL: Abdomen is soft, obese, and nontender. No rebound. NEUROLOGIC: He is awake, alert, oriented, able to communicate and ambulatory. ASSESSMENT AND PLAN 1. Sigmoid diverticulitis questionable perforation and no evidence of abscess formation. The patient was evaluated with Gastroenterology and Surgical team. There was no surgical intervention needed. 2. Hypertension. 3. Hyperlipidemia. PLAN: The patient was given prescription of Cipro 500 twice a day for five more days and Flagyl 500 t.i.d. more days. He will resume his medication including pancreatic enzyme, Aldactone, Lasix once a day, famotidine, and Coreg. He will follow up in office in a week and follow with Dr. Brent Ramirez for his pain management. Sammy Santiago MD
== END 2017-10-27 13:00 | disposition home or self-care (01) | DRG 392 ==
LOC: ED 15:18 → ERH 22:16 → 5RNO 10-23 00:20 → ERH 10-23 00:20 → UNDODISIN 10-25 16:24 → 5RNO 10-25 18:09
PROVIDERS: ADMIT Internal Medicine; ATTEND Internal Medicine
DX: K57.20 Diverticulitis of large intestine with perforation and abscess without bleeding (principal); N17.9 Acute kidney failure, unspecified; I42.0 Dilated cardiomyopathy; I13.0 Hypertensive heart and chronic kidney disease with heart failure and stage 1 through stage 4 chronic kidney disease, or unspecified chronic kidney disease; E11.65 Type 2 diabetes mellitus with hyperglycemia; N18.3 Chronic kidney disease, stage 3 (moderate); K86.1 Other chronic pancreatitis; Z68.42 Body mass index [BMI] 45.0-49.9, adult; N39.0 Urinary tract infection, site not specified; N13.2 Hydronephrosis with renal and ureteral calculous obstruction; E11.22 Type 2 diabetes mellitus with diabetic chronic kidney disease; I43 Cardiomyopathy in diseases classified elsewhere; I50.9 Heart failure, unspecified; E66.01 Morbid (severe) obesity due to excess calories; I48.91 Unspecified atrial fibrillation; K52.9 Noninfective gastroenteritis and colitis, unspecified; E78.5 Hyperlipidemia, unspecified; D64.9 Anemia, unspecified; K21.9 Gastro-esophageal reflux disease without esophagitis; F17.200 Nicotine dependence, unspecified, uncomplicated; B96.1 Klebsiella pneumoniae [K. pneumoniae] as the cause of diseases classified elsewhere; Z91.19 Patient's noncompliance with other medical treatment and regimen; Z87.442 Personal history of urinary calculi; Z79.01 Long term (current) use of anticoagulants

== ENCOUNTER 2017-11-19 16:53 | Inpatient (IN) | payer BC ==
[2017-11-19 16:53] VITALS: PULSE 95; BMI 48.7
[2017-11-19] MEDS ORDERED: Sodium Chloride 0.9% 1,000 ML IV STA ×2 (17:39→21:30)
[2017-11-19] MEDS ORDERED: Piperacillin/Tazobact 3.375 gm 100 ML IVPB STA (17:43)
[2017-11-19] MEDS ORDERED: HYDROmorphone 0.5 mg/0.5 ml ISec IVP STA ×3 (17:48→21:27)
[2017-11-19 17:51] LABS: VENOUS BLOOD GAS BASE EXCESS 0.3 mmol/L (0.0-2.0); VENOUS BLOOD GAS PO2 37 mm/Hg (30-55); VENOUS BLOOD PH 7.39 (7.32-7.43)
[2017-11-19] MEDS ORDERED: HYDROmorphone 0.5 mg/0.5 ml ISec ONE (17:51)
--- NOTE | 2017-11-19 18:01 | ED PDOC ---
Arrival/HPI - General Chief Complaint: GI Problem Time Seen by Provider: 11/19/17 17:23 Historian: Patient - History of Present Illness Narrative History of Present Illness (Text): Patient is a 36 yo male presents to the Emergency Department today complaining of severe constant abdominal pain associated with persistent vomiting. He reports that he was recently discharged from the hospital 5 days ago, and has had persistent abdominal pain since then, although pain worsened today, and was "so bad I felt unsteady and almost passed out". He reports multiple episodes of vomiting "four to five times" prior to arrival. Denies bloody urine or stool. Denies chest pain. Reports some sob with exertion. Denies dysuria. States he has some back pain but is not certain whether it is chronic or acute. Past Medical History - Past History Past History: Non-Contributing - Infectious Disease Hx of Infectious Diseases: None - Tetanus Immunization Tetanus Immunization: Unknown - Cardiac Hx Cardiac Disorders: Yes (cardiomyopathy, hypotension) Hx Cardiac Arrhythmia: Yes (Afib) Hx Congestive Heart Failure: Yes Hx Hypertension: Yes Hx Peripheral Edema: Yes - Pulmonary Hx Respiratory Disorders: Yes Hx Sleep Apnea: Yes - Neurological Hx Neurological Disorder: No - HEENT Hx HEENT Disorder: No - Renal Hx Renal Disorder: Yes (hydronephrosis, L ureteral pigtail stent) Hx Kidney Stones: Yes Hx Renal Failure: Yes - Endocrine/Metabolic Hx Endocrine Disorders: No - Hematological/Oncological Hx Blood Disorders: No - Integumentary Hx Dermatological Disorder: No - Musculoskeletal/Rheumatological Hx Musculoskeletal Disorders: No Hx Falls: No - Gastrointestinal Hx Gastrointestinal Disorders: Yes (diverticulosis) Hx Diverticulitis: Yes Hx Gastroesophageal Reflux: Yes Hx Pancreatitis: Yes - Genitourinary/Gynecological Hx Genitourinary Disorders: Yes (urinary retention) Hx Urinary Tract Infection: Yes - Psychiatric Hx Psychophysiologic Disorder: No Hx Substance Use: No - Past Surgical History Past Surgical History: No Previous - Surgical History Hx Cholecystectomy: Yes - Anesthesia Hx Anesthesia: Yes Hx Anesthesia Reactions: No Hx Malignant Hyperthermia: No - Suicidal Assessment Feels Threatened In Home Enviroment: No Family/Social History Family/Social History: Unknown Family HX Smoking Status: Heavy Smoker > 10 Cigarettes Daily Hx Alcohol Use: No Hx Substance Use: No Hx Substance Use Treatment: No Allergies/Home Meds Allergies/Adverse Reactions: Allergies LUZ Inhibitors Allergy (Verified 10/22/17 15:28) ANGIOEDEMA Home Medications: Home Meds Medication Instructions Recorded Confirmed Carvedilol [Coreg] 12.5 mg PO BID 08/06/17 10/22/17 Famotidine [Pepcid] 20 mg PO DAILY 08/06/17 10/22/17 Furosemide [Lasix] 40 mg PO BID 08/06/17 10/22/17 Spironolactone [Aldactone] 25 mg PO DAILY 08/06/17 10/22/17 HYDROmorphone [Dilaudid] 2 mg PO PRN PRN 08/22/17 10/22/17 Review of Systems - Review of Systems Systems not reviewed;Unavailable: Acuity of Condition Constitutional: absent: Fatigue, Fevers Eyes: absent: Vision Changes ENT: absent: Hearing Changes Respiratory: absent: SOB Cardiovascular: absent: Chest Pain Gastrointestinal: Abdominal Pain, Nausea, Vomiting, Appetite Changes. absent: Constipation, Diarrhea, Hematochezia, Hematemesis, Anorexia Genitourinary Male: absent: Dysuria, Frequency, Hematuria, Urinary Output Changes Musculoskeletal: Back Pain. absent: Neck Pain, Joint Swelling Skin: absent: Rash Neurological: Dizziness. absent: Headache, Focal Weakness, Speech Changes, Facial Droop Endocrine: absent: Polyuria Hemo/Lymphatic: absent: Easy Bleeding Psychiatric: absent: Depression Physical Exam Vital Signs Reviewed: Yes Vital Signs Temp Pulse Resp BP Pulse Ox 11/19/17 17:53 98.2 F 101 H 18 141/93 H 99 Temperature: Afebrile Appearance: Positive for: Ill-Appearing Pain Distress: Severe Mental Status: Positive for: Alert and Oriented X 3 - Systems Exam Head: Present: Atraumatic, Normocephalic Pupils: Present: PERRL Extroacular Muscles: Present: EOMI Mouth: Present: Moist Mucous Membranes Pharnyx: No: ERYTHEMA, EXUDATE Neck: Present: Normal Range of Motion. No: Meningeal Signs, MIDLINE TENDERNESS Respiratory/Chest: Present: Clear to Auscultation. No: Respiratory Distress Cardiovascular: Present: Regular Rate and Rhythm, Murmurs Abdomen: Present: Tenderness, Rebound, Other (no pulsatile masses, there is focal tenderness to LLQ with rebound) Rectal: No: Gross Blood Back: Present: CVA Tenderness Upper Extremity: No: Cyanosis Lower Extremity: Present: Edema, NORMAL PULSES. No: CALF TENDERNESS Neurological: Present: Motor Func Grossly Intact, Normal Sensory Function Skin: Present: Diaphoretic, Pale Psychiatric: Present: Alert, Normal Insight, Normal Concentration Medical Decision Making ED Course and Treatment: Patient seen immediately upon arrival to [facility]. Past visits and chart reviewed, as well as most recent CT. Patient reports recent history of diverticulitis with perforation that was reportedly treated nonsurgically. He is in severe pain with bilious vomiting in the ED on initial evaluation. He was noted to have severe pain most pronounced on left side. As patient with severe pain and recent history of diverticulitis with perforation, surgery emergently consulted BASED ON EXAM AND RECENT CT FINDINGS AND HISTORY. Iv antibiotics initiated for risk of peritonitis based on severity of exam and iv fluids and dilaudid ordered. Initial exam reviewed with surgeon Dr. Kinsey PENDING ct based on severity of pain and initial history. Patient ordered ct abdomen to be repeated based on severe pain. Labs reviewed. Initial lactate and WBC unremarkable. Patient with persistent pain. Denies chest pain. EKG with prolonged qt, no acute st elevations. Initial exam reviewed with Dr. Santiago. CT pending at 1900, case endorsed to Dr. Royal pending re-exam, follow-up CT results, disposition. BP stable, heart rate stable upon return from CT. Ddx peritonitis, diverticulitis, perforation of viscous, abscess, pancreatitis, kidney stone, uti, gastritis, gastroenteritis - Lab Interpretations Lab Results: 11/19/17 17:33 11/19/17 17:33 Lab Results 11/19/17 18:15: Blood Type O NEGATIVE, Antibody Screen Negative, BBK History Checked Patient has bt 11/19/17 18:10: Influenza Typ A,B (EIA) Negative for flu a/b 11/19/17 17:33: Sodium 141, Chloride 103, Potassium 4.4, Carbon Dioxide 26, Anion Gap 16, BUN 19, Creatinine 1.4, Est GFR ( Amer) > 60, Est GFR (Non- Af Amer) 57, Random Glucose 110, Calcium 10.5, Magnesium 2.1, Total Bilirubin 0.9, AST 19, ALT 23, Alkaline Phosphatase 79, Lactate Dehydrogenase 375, Total Creatine Kinase 44, Troponin I 0.01 D, Total Protein 8.5 H, Albumin 4.2, Globulin 4.3, Albumin/Globulin Ratio 1.0 L, Lipase 125 11/19/17 17:33: pO2 37, VBG pH 7.39, VBG pCO2 42.0, VBG HCO3 25.4, VBG Total CO2 26.7, VBG O2 Sat (Calc) 76.9 H, VBG Base Excess 0.3, VBG Potassium 4.3, Sodium 137.0, Chloride 105.0, Glucose 116 H, Lactate 1.3, FiO2 21.0, Venous Blood Potassium 4.3 11/19/17 17:33: PT 12.9 H, INR 1.13 H, APTT 37.1 H 11/19/17 17:33: WBC 8.9, RBC 4.28, Hgb 13.4 L D, Hct 41.2 L, MCV 96.3 D, MCH 31.3, MCHC 32.5, RDW 18.3 H, Plt Count 285, MPV 10.3, Gran % 75.9 H, Lymph % ( Auto) 15.7 L, [place] % (Auto) 7.8 H, Eos % (Auto) 0.6 L, Baso % (Auto) 0.0, Gran # 6.73 H, Lymph # (Auto) 1.4, [place] # (Auto) 0.7 H, Eos # (Auto) 0.1, Baso # ( Auto) 0.00 - RAD Interpretation Radiology Orders: 11/19/17 17:33 CHEST PORTABLE [RAD] Stat 11/19/17 17:34 ABD & PELVIS W/O PO OR IV CONT [CT] Stat - Medication Orders Current Medication Orders: Discontinued Medications Hydromorphone HCl (Dilaudid) 1 mg IVP STAT STA Stop: 11/19/17 17:49 Last Admin: 11/19/17 17:51 Dose: 1 mg [facility] Pain Assessment Document 11/19/17 17:51 GMD (Rec: 11/19/17 17:51 D [id number]) Pain Reassessment Is this a pain reassessment? No Presence of Pain Presence of Pain Yes IVP Administration Document 11/19/17 17:51 GMD (Rec: 11/19/17 17:51 GMD [id number]) Charges for Administration # of IVP Administrations 2 Hydromorphone HCl (Dilaudid) 1 mg IVP STAT STA Stop: 11/19/17 18:51 Last Admin: 11/19/17 18:59 Dose: 1 mg MAR Pain Assessment Document 11/19/17 18:59 GMD (Rec: 11/19/17 18:59 GMD [id number]) Pain Reassessment Is this a pain reassessment? No Sleep Is patient sleeping during reassessment? No Presence of Pain Presence of Pain Yes IVP Administration Document 11/19/17 18:59 GMD (Rec: 11/19/17 18:59 GMD [id number]) Charges for Administration # of IVP Administrations 1 Sodium Chloride (Sodium Chloride 0.9%) 1,000 mls @ 1,000 mls/hr IV .Q1H STA Stop: 11/19/17 18:38 Last Admin: 11/19/17 17:43 Dose: 1,000 mls/hr eMAR Start Stop Document 11/19/17 17:43 GMD (Rec: 11/19/17 17:43 GMD [id number]) Intravenous Solution Start Date 11/19/17 Start Time 17:43 End Date 11/19/17 End time 18:43 Total Infusion Time 60 Piperacillin Sod/Tazobactam Sod (Zosyn 3.375 In Ns 100ml) 100 mls @ 200 mls/hr IVPB STAT STA PRN Reason: Protocol Stop: 11/19/17 18:12 Last Admin: 11/19/17 18:17 Dose: 200 mls/hr eMAR Start Stop Document 11/19/17 18:17 GMD (Rec: 11/19/17 18:18 GMD [id number]) Intravenous Solution Start Date 11/19/17 Start Time 18:17 End Date 11/19/17 End time 18:47 Total Infusion Time 30 Metoclopramide HCl (Reglan) 10 mg IVP STAT STA Stop: 11/19/17 17:40 Last Admin: 11/19/17 17:46 Dose: Disposition/Present on Arrival - Present on Arrival Any Indicators Present on Arrival: No History of DVT/PE: No History of Uncontrolled Diabetes: No Urinary Catheter: No History of Decub. Ulcer: No History Surgical Site Infection Following: None - Disposition Have Diagnosis and Disposition been Completed?: Yes Diagnosis: Abdominal pain, Nausea and vomiting Disposition Time: 19:00 Patient Plan: Admission Patient Problems: Current Active Problems Problem Status Onset Abdominal pain Acute Nausea and vomiting Acute Condition: SERIOUS Forms: [facility] (Welsh)
[2017-11-19 18:06] LABS: ALBUMIN 4.2 g/dL (3.0-4.8); ALT/SGPT 23 U/L (7-56); AST/SGOT 19 U/L (17-59); BLOOD UREA NITROGEN 19 mg/dL (7-21); CALCIUM 10.5 mg/dL (8.4-10.5); EOS # 0.1 (0.0-0.7); EOS % 0.6 % (1.5-5.0); GFR AFRICAN-AMERICAN > 60; GFR NON-AFRICAN AMERICAN 57; GRAN # 6.73 (1.4-6.5); GRAN % 75.9 % (50.0-68.0); HEMOGLOBIN 13.4 g/dL (14.0-18.0); LIPASE 125 U/L (23-300); LYMPH # 1.4 (1.2-3.4); LYMPH % 15.7 % (22.0-35.0); MAGNESIUM 2.1 mg/dL (1.7-2.2); MEAN CELL VOLUME 96.3 fl (80.0-105.0); MEAN CORPUSCULAR HEMOGLOBIN 31.3 pg (25.0-35.0); MEAN CORPUSCULAR HGB CONC 32.5 g/dl (31.0-37.0); MEAN PLATELET VOLUME 10.3 fl (7.0-11.0); MONO # 0.7 (0.1-0.6); MONO % 7.8 % (1.0-6.0); RBC 4.28 10^6/uL (3.5-6.1); RED CELL DISTRIBUTION WIDTH 18.3 % (11.5-14.5); WHITE BLOOD COUNT 8.9 10^3/ul (4.5-11.0)
[2017-11-19 18:08] LABS: INR 1.13 (0.93-1.08); PARTIAL THROMBOPLASTIN TIME 37.1 Seconds (25.1-36.5); PROTHROMBIN TIME 12.9 SECONDS (9.4-12.5)
[2017-11-19 18:11] LABS: TROPONIN I 0.01 ng/mL
--- NOTE | 2017-11-19 19:49 | CT ---
EXAM: CT Abdomen and Pelvis Without Intravenous Contrast EXAM DATE/TIME: 11/19/2017 5:34 PM CLINICAL HISTORY: The patient age is 36 years old and is male; Pain; Abdominal pain; Prior surgery; Surgery type: Cholecystectomy; Additional info: Diverticulitis with HX of perforation Facility exam id and description: Ct abdpelscon abd pelvis w/o po or iv cont TECHNIQUE: Axial computed tomography images of the abdomen and pelvis without intravenous contrast. All CT scans at this facility use one or more dose reduction techniques, viz.: automated exposure control; ma/kV adjustment per patient size (including targeted exams where dose is matched to indication; i.e. head); or iterative reconstruction technique. Coronal and sagittal reformatted images were created and reviewed. COMPARISON: CT - ABD PELVIS PO CONTRAST ONLY 2017-10-26 10:41 FINDINGS: Lower thorax: There is cardiomegaly. Patchy nonspecific groundglass densities are identified within the bilateral lung bases. A fat containing Bochdalek hernia is identified at the right posterior lung base. ABDOMEN: Liver: No mass. Gallbladder and bile ducts: Surgical clips are identified within the gallbladder fossa, compatible with cholecystectomy. Pancreas: Normal contour. No ductal dilation. Spleen: No splenomegaly. Adrenals: No mass. Kidneys and ureters: There is hydronephrosis of the left kidney. A left ureteral stent is again visualized. The perinephric training is identified, and pyelonephritis cannot be excluded. At the lower pole of the left kidney, there is a 1.7 x 0.6 cm nonobstructing calculus, which has slightly increased in size. At the upper pole the left kidney, there is a hypodense probable cyst or dilated calyx measuring 3.4 cm in diameter, which has increased in size. The fluid collection exophytic and posterior to the kidney has significantly improved. Stomach and bowel: Colonic diverticula are identified. Mild pericolonic stranding is identified surrounding the sigmoid colon, consistent with diverticulitis. This has significantly improved compared to the prior study. Appendix: The appendix is not visualized. PELVIS: Bladder: No stones. Reproductive: Unremarkable as visualized. ABDOMEN and PELVIS: Intraperitoneal space: No free air. Bones/joints: Hypertrophic degenerative changes are noted within the spine. There is slight retrolisthesis of L4 on L5. Vasculature: No abdominal aortic aneurysm. Lymph nodes: No enlarged lymph nodes. IMPRESSION: 1. There is hydronephrosis of the left kidney. A left ureteral stent is again visualized. The perinephric training is identified, and pyelonephritis cannot be excluded. At the lower pole of the left kidney, there is a 1.7 x 0.6 cm nonobstructing calculus, which has slightly increased in size. 2. Colonic diverticula are identified. Mild pericolonic stranding is identified surrounding the sigmoid colon, consistent with diverticulitis. This has significantly improved compared to the prior study. 3. At the upper pole the left kidney, there is a hypodense probable cyst or dilated calyx measuring 3.4 cm in diameter, which has increased in size. The fluid collection exophytic and posterior to the kidney has significantly improved. 4. There is cardiomegaly. 5. Additional CT findings described above.
--- NOTE | 2017-11-19 21:07 | CP.PCM.CON ---
<Kenn Mercado - Last Filed: 11/19/17 22:00> History of Present Illness - History of Present Illness History of Present Illness: Surgery: Dr. Coyle CC: Abd pain HPI: 36M w. pmh of chronic pancreatitis, kidney stones, L hydronephrosis, HTN, CHF, diverticulitis presents w. abd pain. Pt was recently admitted a month ago ( 10/22/17) for acute diverticulitis which was managed conservatively. Pt states that starting yesterday he began to experience pain in the LLQ. The pain increased in severity today and was described as "somone kicking him in the stomach" he states that the severity of pain caused him to nearly pass out. He reports several episodes of bilious emesis and an inability to tolerate PO intake. He states that he has had bloody / mucoid like stools. PMH: see above PSH: cholecystectomy ALL: LUZ inhibitors Meds: MAR reviewed Social: +tobacco, no ETOH/drugs Fhx: Non-contributory Review of Systems - Review of Systems All systems: reviewed and no additional remarkable complaints except (HPI) Past Patient History - Infectious Disease Hx of Infectious Diseases: None - Tetanus Immunizations Tetanus Immunization: Unknown - Past Medical History & Family History Past Medical History?: Yes - Past Social History Smoking Status: Heavy Smoker > 10 Cigarettes Daily - CARDIAC Hx Cardiac Disorders: Yes (cardiomyopathy, hypotension) Hx Cardia Arrhythmia: Yes (Afib) Hx Congestive Heart Failure: Yes Hx Hypertension: Yes Hx Peripheral Edema: Yes - PULMONARY Hx Respiratory Disorders: Yes Hx Sleep Apnea: Yes - NEUROLOGICAL Hx Neurological Disorder: No - HEENT Hx HEENT Problems: No - RENAL Hx Chronic Kidney Disease: Yes (hydronephrosis, L ureteral pigtail stent) Hx Kidney Stones: Yes Hx Renal Failure: Yes - ENDOCRINE/METABOLIC Hx Endocrine Disorders: No - HEMATOLOGICAL/ONCOLOGICAL Hx Blood Disorders: No - INTEGUMENTARY Hx Dermatological Problems: No - MUSCULOSKELETAL/RHEUMATOLOGICAL Hx Musculoskeletal Disorders: No Hx Falls: No - GASTROINTESTINAL Hx Gastrointestinal Disorders: Yes (diverticulosis) Hx Diverticulitis: Yes Hx Gastroesophageal Reflux: Yes Hx Pancreatitis: Yes - GENITOURINARY/GYNECOLOGICAL Hx Genitourinary Disorders: Yes (urinary retention) Hx Urinary Tract Infection: Yes - PSYCHIATRIC Hx Psychophysiologic Disorder: No Hx Substance Use: No - SURGICAL HISTORY Hx Cholecystectomy: Yes - ANESTHESIA Hx Anesthesia: Yes Hx Anesthesia Reactions: No Hx Malignant Hyperthermia: No Meds Allergies/Adverse Reactions: Allergies Allergy/AdvReac Type Severity Reaction Status Date / Time LUZ Inhibitors Allergy ANGIOEDEMA Verified 10/22/17 15:28 Physical Exam - Constitutional Appears: Non-toxic, No Acute Distress - Head Exam Head Exam: ATRAUMATIC, NORMOCEPHALIC - Eye Exam Eye Exam: EOMI Pupil Exam: NORMAL ACCOMODATION - ENT Exam ENT Exam: Mucous Membranes Moist - Neck Exam Neck exam: Positive for: Full Rom - Respiratory Exam Respiratory Exam: NORMAL BREATHING PATTERN. absent: Accessory Muscle Use, Respiratory Distress - Cardiovascular Exam Cardiovascular Exam: Tachycardia - GI/Abdominal Exam GI & Abdominal Exam: Normal Bowel Sounds, Soft, Tenderness (LLQ). absent: Distended, Firm, Guarding, Rebound, Rigid - Rectal Exam Rectal Exam: Deferred - Extremities Exam Extremities exam: Negative for: calf tenderness, pedal edema - Neurological Exam Neurological exam: Alert, Oriented x3 - Psychiatric Exam Psychiatric exam: Normal Affect, Normal Mood - Skin Skin Exam: Dry, Normal Color, Warm Results - Vital Signs Recent Vital Signs: Last Vital Signs Temp 98.2 F 11/19/17 17:53 Pulse 101 H 11/19/17 17:53 Resp 18 11/19/17 17:53 BP 141/93 H 11/19/17 17:53 Pulse Ox 99 11/19/17 17:53 - Labs Result Diagrams: 11/19/17 17:33 11/19/17 17:33 Labs: Laboratory Results - last 24 hr 11/19/17 11/19/17 11/19/17 17:33 17:33 17:33 WBC 8.9 RBC 4.28 Hgb 13.4 L D Hct 41.2 L MCV 96.3 D MCH 31.3 MCHC 32.5 RDW 18.3 H Plt Count 285 MPV 10.3 Gran % 75.9 H Lymph % (Auto) 15.7 L [place] % (Auto) 7.8 H Eos % (Auto) 0.6 L Baso % (Auto) 0.0 Gran # 6.73 H Lymph # (Auto) 1.4 [place] # (Auto) 0.7 H Eos # (Auto) 0.1 Baso # (Auto) 0.00 PT 12.9 H INR 1.13 H APTT 37.1 H pO2 37 VBG pH 7.39 VBG pCO2 42.0 VBG HCO3 25.4 VBG Total CO2 26.7 VBG O2 Sat (Calc) 76.9 H VBG Base Excess 0.3 VBG Potassium 4.3 Sodium 137.0 Chloride 105.0 Glucose 116 H Lactate 1.3 FiO2 21.0 Potassium Carbon Dioxide Anion Gap BUN Creatinine Est GFR ( Amer) Est GFR (Non-Af Amer) Random Glucose Calcium Magnesium Total Bilirubin AST ALT Alkaline Phosphatase Lactate Dehydrogenase Total Creatine Kinase Troponin I Total Protein Albumin Globulin Albumin/Globulin Ratio Lipase Venous Blood Potassium 4.3 Influenza Typ A,B (EIA) Blood Type Antibody Screen BBK History Checked 11/19/17 11/19/17 11/19/17 17:33 18:10 18:15 WBC RBC Hgb Hct MCV MCH MCHC RDW Plt Count MPV Gran % Lymph % (Auto) [place] % (Auto) Eos % (Auto) Baso % (Auto) Gran # Lymph # (Auto) [place] # (Auto) Eos # (Auto) Baso # (Auto) PT INR APTT pO2 VBG pH VBG pCO2 VBG HCO3 VBG Total CO2 VBG O2 Sat (Calc) VBG Base Excess VBG Potassium Sodium 141 Chloride 103 Glucose Lactate FiO2 Potassium 4.4 Carbon Dioxide 26 Anion Gap 16 BUN 19 Creatinine 1.4 Est GFR ( Amer) > 60 Est GFR (Non-Af Amer) 57 Random Glucose 110 Calcium 10.5 Magnesium 2.1 Total Bilirubin 0.9 AST 19 ALT 23 Alkaline Phosphatase 79 Lactate Dehydrogenase 375 Total Creatine Kinase 44 Troponin I 0.01 D Total Protein 8.5 H Albumin 4.2 Globulin 4.3 Albumin/Globulin Ratio 1.0 L Lipase 125 Venous Blood Potassium Influenza Typ A,B (EIA) Negative for flu a/b Blood Type O NEGATIVE Antibody Screen Negative BBK History Checked Patient has bt - Imaging and Cardiology CT scan - abdomen Status: Image reviewed by me, Report reviewed by me Assessment & Plan - Assessment and Plan (Free Text) Assessment: 36M w. recurrent diverticulitis -fecal occult deferred -conservative management -NPO -IVF -cipro/flagyl -serial abd exams -will need colonoscopy when acute phase resolves -d/w attending Jess PGY3 <Darrell Coyle - Last Filed: 11/27/17 00:31> Results - Vital Signs Recent Vital Signs: Last Vital Signs Temp 97.9 F 11/24/17 07:30 Pulse 75 11/24/17 07:30 Resp 20 11/24/17 07:30 BP 122/78 11/24/17 17:29 Pulse Ox 98 11/24/17 07:30 - Labs Result Diagrams: 11/23/17 10:50 11/23/17 10:50 Assessment & Plan - Assessment and Plan (Free Text) Assessment: Patient was seen and examined by me. I agree with assessment and plan as per resident's note.
--- NOTE | 2017-11-19 21:16 | ED PDOC ---
Physical Exam Vital Signs Temp Pulse Resp BP Pulse Ox 11/19/17 17:53 98.2 F 101 H 18 141/93 H 99 Medical Decision Making ED Course and Treatment: 11/19/17 19:00 Case endorsed to me by Dr. Edwards, pending CT abdomen and pelvis, re-assessment, and disposition. Pt presented with history of continued abdominal pain after discharge from hospital 5 days prior following treatment of diverticulitis. Pt presented due to continued pain and multiple episodes of vomiting. Pt was treated prior with IV analgesics and IV antibiotics. Due to persistent symptoms , CT was ordered. 11/19/17 21:04 CT scan results consistent with diverticulitis, which may be improved from previous. However, pt still symptomatic, pt seen and evaluated by surgical services director. Dr. Best was notified, will consult on case. Case discussed with Dr. Santiago, who is aware and agrees with plan. Accepts pt in to her service. Pt will be admitted for diverticulitis, intractable pain, and vomiting. - Lab Interpretations Lab Results: 11/19/17 17:33 11/19/17 17:33 Lab Results 11/19/17 18:15: Blood Type O NEGATIVE, Antibody Screen Negative, BBK History Checked Patient has bt 11/19/17 18:10: Influenza Typ A,B (EIA) Negative for flu a/b 11/19/17 17:33: Sodium 141, Chloride 103, Potassium 4.4, Carbon Dioxide 26, Anion Gap 16, BUN 19, Creatinine 1.4, Est GFR ( Amer) > 60, Est GFR (Non- Af Amer) 57, Random Glucose 110, Calcium 10.5, Magnesium 2.1, Total Bilirubin 0.9, AST 19, ALT 23, Alkaline Phosphatase 79, Lactate Dehydrogenase 375, Total Creatine Kinase 44, Troponin I 0.01 D, Total Protein 8.5 H, Albumin 4.2, Globulin 4.3, Albumin/Globulin Ratio 1.0 L, Lipase 125 11/19/17 17:33: pO2 37, VBG pH 7.39, VBG pCO2 42.0, VBG HCO3 25.4, VBG Total CO2 26.7, VBG O2 Sat (Calc) 76.9 H, VBG Base Excess 0.3, VBG Potassium 4.3, Sodium 137.0, Chloride 105.0, Glucose 116 H, Lactate 1.3, FiO2 21.0, Venous Blood Potassium 4.3 11/19/17 17:33: PT 12.9 H, INR 1.13 H, APTT 37.1 H 11/19/17 17:33: WBC 8.9, RBC 4.28, Hgb 13.4 L D, Hct 41.2 L, MCV 96.3 D, MCH 31.3, MCHC 32.5, RDW 18.3 H, Plt Count 285, MPV 10.3, Gran % 75.9 H, Lymph % ( Auto) 15.7 L, [place] % (Auto) 7.8 H, Eos % (Auto) 0.6 L, Baso % (Auto) 0.0, Gran # 6.73 H, Lymph # (Auto) 1.4, [place] # (Auto) 0.7 H, Eos # (Auto) 0.1, Baso # ( Auto) 0.00 - RAD Interpretation Radiology Orders: 11/19/17 17:33 CHEST PORTABLE [RAD] Stat 11/19/17 17:34 ABD & PELVIS W/O PO OR IV CONT [CT] Stat [employer] 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 No Presence of Pain Presence of Pain Yes IVP Administration Document 11/19/17 17:51 GMD (Rec: 11/19/17 17:51 GMD [id number]) Charges for Administration # of IVP Administrations 2 Hydromorphone HCl (Dilaudid) 1 mg IVP STAT STA Stop: 11/19/17 18:51 Last Admin: 11/19/17 18:59 Dose: 1 mg MAR Pain Assessment Document 11/19/17 18:59 GMD (Rec: 11/19/17 18:59 GMD [id number]) Pain Reassessment Is this a pain reassessment? No Sleep Is patient sleeping during reassessment? No Presence of Pain Presence of Pain Yes IVP Administration Document 11/19/17 18:59 GMD (Rec: 11/19/17 18:59 GMD [id number]) Charges for Administration # of IVP Administrations 1 Sodium Chloride (Sodium Chloride 0.9%) 1,000 mls @ 1,000 mls/hr IV .Q1H STA Stop: 11/19/17 18:38 Last Admin: 11/19/17 17:43 Dose: 1,000 mls/hr eMAR Start Stop Document 11/19/17 17:43 GMD (Rec: 11/19/17 17:43 GMD [id number]) Intravenous Solution Start Date 11/19/17 Start Time 17:43 End Date 11/19/17 End time 18:43 Total Infusion Time 60 Piperacillin Sod/Tazobactam Sod (Zosyn 3.375 In Ns 100ml) 100 mls @ 200 mls/hr IVPB STAT STA PRN Reason: Protocol Stop: 11/19/17 18:12 Last Admin: 11/19/17 18:17 Dose: 200 mls/hr eMAR Start Stop Document 11/19/17 18:17 GMD (Rec: 11/19/17 18:18 GMD [id number]) Intravenous Solution Start Date 11/19/17 Start Time 18:17 End Date 11/19/17 End time 18:47 Total Infusion Time 30 Metoclopramide HCl (Reglan) 10 mg IVP STAT STA Stop: 11/19/17 17:40 Last Admin: 11/19/17 17:46 Dose: Ondansetron HCl (Zofran Inj) 4 mg IVP ONCE ONE Stop: 11/19/17 20:46 Last Admin: 11/19/17 20:55 Dose: 4 mg IVP Administration Document 11/19/17 20:55 SS (Rec: 11/19/17 20:55 SS [id number]) Charges for Administration # of IVP Administrations 1 Disposition/Present on Arrival - Present on Arrival Any Indicators Present on Arrival: No History of DVT/PE: No History of Uncontrolled Diabetes: No Urinary Catheter: No History of Decub. Ulcer: No History Surgical Site Infection Following: None - Disposition Have Diagnosis and Disposition been Completed?: Yes Diagnosis: Abdominal pain, Diverticulitis, Intractable vomiting Disposition: HOSPITALIZED Disposition Time: 21:26 Patient Plan: Observation Patient Problems: Current Active Problems Problem Status Onset Abdominal pain Acute Nausea and vomiting Acute Condition: STABLE Referrals: PCP,NO [Primary Care Provider] - Follow up with primary Forms: [employer] ([place])
[2017-11-19] MEDS ORDERED: Morphine 5 MG/ML SYRINGE IVP PRN (23:09)
[2017-11-19] MEDS: Dextrose 5%/0.45% NS 1,000 ML IV SCH (23:36)
[2017-11-20] MEDS: metroNIDAZOLE IV 500 mg/100 ml 500 MG/100 ML BAG IVPB SCH ×3 (06:01→21:09)
[2017-11-20 07:24] LABS: BASO # 0.01 K/mm3 (0.0-2.0); BASO % 0.1 % (0.0-3.0); EOS # 0.1 (0.0-0.7); EOS % 0.7 % (1.5-5.0); GRAN # 5.88 (1.4-6.5); GRAN % 67.5 % (50.0-68.0); HEMOGLOBIN 11.7 g/dL (14.0-18.0); LYMPH # 1.9 (1.2-3.4); LYMPH % 21.7 % (22.0-35.0); MEAN CELL VOLUME 96.8 fl (80.0-105.0); MEAN CORPUSCULAR HEMOGLOBIN 30.8 pg (25.0-35.0); MEAN CORPUSCULAR HGB CONC 31.8 g/dl (31.0-37.0); MEAN PLATELET VOLUME 9.9 fl (7.0-11.0); MONO # 0.9 (0.1-0.6); RBC 3.8 10^6/uL (3.5-6.1); RED CELL DISTRIBUTION WIDTH 18.5 % (11.5-14.5); WHITE BLOOD COUNT 8.7 10^3/ul (4.5-11.0)
[2017-11-20] MEDS ORDERED: Morphine 5 MG/ML SYRINGE IVP PRN (07:36)
[2017-11-20 08:12] LABS: ALBUMIN 3.7 g/dL (3.0-4.8); ALT/SGPT 19 U/L (7-56); AST/SGOT 21 U/L (17-59); BLOOD UREA NITROGEN 18 mg/dL (7-21); CALCIUM 9.5 mg/dL (8.4-10.5); GFR AFRICAN-AMERICAN > 60; GFR NON-AFRICAN AMERICAN > 60
--- NOTE | 2017-11-20 09:07 | RAD ---
HISTORY: abdominal pain COMPARISON: 09/12/2017 FINDINGS: LUNGS: No active pulmonary disease. PLEURA: No significant pleural effusion identified, no pneumothorax apparent. CARDIOVASCULAR: Moderate cardiomegaly OSSEOUS STRUCTURES: No significant abnormalities. VISUALIZED UPPER ABDOMEN: Normal. OTHER FINDINGS: None. IMPRESSION: No active disease.
[2017-11-20] MEDS: cefTRIAXone 1 gm 1 GM/100 ML BAG IVPB SCH (09:29)
[2017-11-20] MEDS ORDERED: Ciprofloxacin 400mg/200ml D5W 400 MG/200 ML BAG IVPB SCH (10:00)
--- NOTE | 2017-11-20 10:03 | CP.PCM.PN ---
<Fabien Post Sol - Last Filed: 11/20/17 09:59> Subjective - Date & Time of Evaluation Date of Evaluation: 11/20/17 Time of Evaluation: 09:59 - Subjective Subjective: General surgery progress note for Dr. Coyle Patient seen and examined at bedside. Patient states he is still in a lot of pain and is still nauseas. Patient aware of plan to be NPO. No further complaints at this time. Objective - Vital Signs/Intake and Output Vital Signs (last 24 hours): Temp Pulse Resp BP Pulse Ox 98.2 F 77 20 142/102 H 94 L 11/20/17 07:30 11/20/17 09:28 11/20/17 07:30 11/20/17 09:28 11/20/17 07:30 Intake and Output: 11/20/17 11/20/17 06:59 18:59 Intake Total 500 Balance 500 - Medications Medications: Current Medications Carvedilol (Coreg) 12.5 mg PO BID [facility] Last Admin: 11/20/17 09:28 Dose: 12.5 mg Ciprofloxacin (Cipro 400mg/200ml Dsw) 400 mg in 200 mls @ 133.3 mls/hr IVPB Q12 [facility]SI[facility] PRN Reason: Protocol Stop: 11/21/17 23:31 Last Admin: 11/20/17 09:29 Dose: 133.3 mls/hr Metronidazole (Flagyl) 500 mg in 100 mls @ 100 mls/hr IVPB Q8 [facility] PRN Reason: Protocol Last Admin: 11/20/17 06:01 Dose: 100 mls/hr Dextrose/Sodium Chloride (Dextrose 5%/0.45% Ns 1000 Ml) 1,000 mls @ 75 mls/hr IV .[id number] [facility] Last Admin: 11/19/17 23:36 Dose: 75 mls/hr Ceftriaxone Sodium (Rocephin 1 Gram Ivpb) 1 gm in 100 mls @ 100 mls/hr IVPB DAILY [facility] PRN Reason: Protocol Last Admin: 11/20/17 09:29 Dose: 100 mls/hr Metoclopramide HCl (Reglan) 10 mg IVP TID PRN PRN Reason: Nausea/Vomiting Last Admin: 11/20/17 09:41 Dose: 10 mg Morphine Sulfate (Morphine) 5 mg IVP [id number] PRN PRN Reason: Pain, moderate (4-7) Last Admin: 11/20/17 07:58 Dose: 5 mg Ondansetron HCl (Zofran Inj) 4 mg IVP Q6H PRN PRN Reason: Nausea/Vomiting Stop: 11/20/17 10:00 - Labs Labs: 11/20/17 07:15 11/20/17 07:15 PT 12.9 SECONDS (9.4-12.5) H 11/19/17 17:33 INR 1.13 (0.93-1.08) H 11/19/17 17:33 APTT 37.1 Seconds (25.1-36.5) H 11/19/17 17:33 - Constitutional Appears: Well - Head Exam Head Exam: ATRAUMATIC, NORMAL INSPECTION, NORMOCEPHALIC - Eye Exam Eye Exam: EOMI, Normal appearance, PERRL Pupil Exam: NORMAL ACCOMODATION, PERRL - ENT Exam ENT Exam: Mucous Membranes Moist, Normal Exam - Neck Exam Neck Exam: Full ROM, Normal Inspection. absent: Lymphadenopathy - Respiratory Exam Respiratory Exam: Clear to Ausculation Bilateral, NORMAL BREATHING PATTERN - Cardiovascular Exam Cardiovascular Exam: REGULAR RHYTHM, +S1, +S2. absent: Murmur - GI/Abdominal Exam GI & Abdominal Exam: Soft, Normal Bowel Sounds. absent: Tenderness - Extremities Exam Extremities Exam: Full ROM, Normal Capillary Refill, Normal Inspection. absent : Joint Swelling, Pedal Edema - Back Exam Back Exam: NORMAL INSPECTION - Neurological Exam Neurological Exam: Alert, Awake, CN II-XII Intact, Normal Gait, Oriented x3 - Psychiatric Exam Psychiatric exam: Normal Affect, Normal Mood - Skin Skin Exam: Dry, Intact, Normal Color, Warm Assessment and Plan - Assessment and Plan (Free Text) Assessment: 36M w. recurrent diverticulitis -fecal occult deferred -conservative management -pain medications changed from morphine q6 to morphine q4 -reglan added -NPO -IVF -cipro/flagyl -serial abd exams -will need colonoscopy when acute phase resolves <Darrell Coyle - Last Filed: 11/27/17 00:35> Objective - Vital Signs/Intake and Output Vital Signs (last 24 hours): Temp Pulse Resp BP Pulse Ox 97.9 F 75 20 122/78 98 11/24/17 07:30 11/24/17 07:30 11/24/17 07:30 11/24/17 17:29 11/24/17 07:30 - Labs Labs: 11/23/17 10:50 11/23/17 10:50 PT 12.9 SECONDS (9.4-12.5) H 11/19/17 17:33 INR 1.13 (0.93-1.08) H 11/19/17 17:33 APTT 37.1 Seconds (25.1-36.5) H 11/19/17 17:33 Assessment and Plan - Assessment and Plan (Free Text) Assessment: Patient was seen and examined by me. I agree with assessment and plan as per resident's note.
--- NOTE | 2017-11-20 10:04 | CARD ---
APPROVED REPORT EKG Measurement Heart [id number] <Conclusion> RSR PRWP NSSTW changes Prolonged QTc No change
--- NOTE | 2017-11-20 10:22 | HP ---
HISTORY OF PRESENT ILLNESS: Patient is 36 years old known to me from multiple previous admissions, came to Emergency Room because of increasing abdominal pain, complaining of feeling nauseous, had a couple of episodes of vomiting. Patient had similar episode almost a month ago. At that point, he had sigmoid diverticulitis with questionable perforation. Patient was kept n.p.o. and was given IV antibiotics with significant improvement and he started to have same kind of pain yesterday, it was in the left lower quadrant area, but got worse today. So, patient states because of pain, he was sweating and felt very dizzy as if he is going to pass out and it was associated with vomiting. He was unable to hold any food. PAST MEDICAL HISTORY: Significant for: 1. Hypertension. 2. Non-ischemic cardiomyopathy. 3. Chronic kidney disease. 4. Status post cholecystectomy. 5. History of nephrolithiasis, status post stent placement. ALLERGIES: HE IS ALLERGIC TO LUZ INHIBITORS. SOCIAL HISTORY: He used to be a heavy drinker in the past and he also used drugs, but currently only smokes. REVIEW OF SYSTEMS: Significant for abdominal pain, nausea, and vomiting. PHYSICAL EXAMINATION GENERAL: He is awake, alert, oriented, and communicative. VITAL SIGNS: He is afebrile, pulse 101, respirations 18, blood pressure 140/93. LUNGS: Bilateral fair airflow. No rhonchi or crackle. HEART: S1 and S2 audible. ABDOMEN: Soft. Left lower quadrant, palpable discomfort. NEUROLOGIC: He is awake and alert, able to communicate. LABORATORY DATA: WBC is 8.9, hemoglobin 13.4, hematocrit 41.2, platelets of 285,000. PT 12.9 and INR 1.13. Chemistry: Sodium 141, potassium 4.4, chloride 103, CO2 26, BUN 19, creatinine 1.0, blood sugar 110. LFTs are within normal limits. Total protein 8.5. Flu test is negative. Abdominal pain. CT scan of the abdomen and pelvis done today, showed hydronephrosis of the left kidney, left ureteral stent with perinephric stranding. Patient has mild diverticulitis with pericolonic stranding in the sigmoid colon area consistent with diverticulitis, it is improved compared to previous study. ASSESSMENT AND PLAN 1. Sigmoid diverticulitis. 2. Hydronephrosis. 3. History of nephrolithiasis, status post stent placement. 4. Hypertension. 5. Nonischemic cardiomyopathy. PLAN: We will keep the patient n.p.o. We will give IV antibiotics, IV fluid. Analgesics as needed. GI consult with Dr. Choe. Surgical consult with has been requested and we will follow up electrolytes. Sammy Santiago MD
[2017-11-20] MEDS: Morphine 5 MG/ML SYRINGE IVP PRN ×3 (12:00→21:09)
[2017-11-20] MEDS: Dextrose 5%/0.45% NS 1,000 ML IV SCH (17:13)
--- NOTE | 2017-11-20 23:10 | PN ---
DATE: SUBJECTIVE: Patient is 36 years old. Seen and examined. Still has abdominal discomfort, states he has no appetite. He does complain of right flank pain, intermittently. No hematuria. PHYSICAL EXAMINATION: VITAL SIGNS: Patient is afebrile. Pulse 73, respirations 20, blood pressure 137/91. LUNGS: Bilateral fair airflow. No rhonchi or crackles. HEART: S1 and S2 audible. ABDOMEN: Soft, slight palpable discomfort in left upper and left lower quadrant area. LABORATORY DATA: WBC is 8.7, hemoglobin 11.7, hematocrit 36.8, platelet of 53. Chemistry: Sodium 138, potassium 3.9, chloride 103, CO2 of 25, BUN 18, creatinine 1.3, blood sugar of 98. Flu test is negative. ASSESSMENT: 1. Sigmoid diverticulitis. 2. History of recurrent pancreatitis. 3. Narcotic dependence. 4. Hypertension. 5. Nonischemic cardiomyopathy. 6. Morbid obesity. 7. Chronic renal insufficiency. PLAN: Currently patient is n.p.o. He is on IV fluids. Continue with Coreg. Continue him on metronidazole. Currently, he is on Rocephin. We will reevaluate this patient in the a.m. Sammy Santiago MD
[2017-11-21] MEDS: Morphine 5 MG/ML SYRINGE IVP PRN ×6 (01:20→21:59)
[2017-11-21] MEDS: metroNIDAZOLE IV 500 mg/100 ml 500 MG/100 ML BAG IVPB SCH ×3 (05:37→21:59)
[2017-11-21] MEDS: Dextrose 5%/0.45% NS 1,000 ML IV SCH (08:41)
[2017-11-21] MEDS: cefTRIAXone 1 gm 1 GM/100 ML BAG IVPB SCH (09:39)
--- NOTE | 2017-11-21 09:59 | CP.PCM.PN ---
<Fabien Post Sol - Last Filed: 11/21/17 09:57> Subjective - Date & Time of Evaluation Date of Evaluation: 11/21/17 Time of Evaluation: 09:57 - Subjective Subjective: General surgery progress note for Dr. Coyle Patient seen and examined at bedside. Patient states he is still in a lot of pain and is still nauseas, but much better than yesterday. No further complaints at this time. Objective - Vital Signs/Intake and Output Vital Signs (last 24 hours): Temp Pulse Resp BP Pulse Ox 99.0 F 73 18 139/93 H 96 11/21/17 07:30 11/21/17 07:30 11/21/17 07:30 11/21/17 07:30 11/21/17 07:30 Intake and Output: 11/21/17 11/21/17 06:59 18:59 Intake Total 840 Output Total 1300 Balance -460 - Medications Medications: Current Medications Carvedilol (Coreg) 12.5 mg PO BID [facility] Last Admin: 11/21/17 09:39 Dose: 12.5 mg Metronidazole (Flagyl) 500 mg in 100 mls @ 100 mls/hr IVPB Q8 [facility] PRN Reason: Protocol Last Admin: 11/21/17 05:37 Dose: 100 mls/hr Dextrose/Sodium Chloride (Dextrose 5%/0.45% Ns 1000 Ml) 1,000 mls @ 75 mls/hr IV .[id number] [facility] Last Admin: 11/21/17 08:41 Dose: 75 mls/hr Ceftriaxone Sodium (Rocephin 1 Gram Ivpb) 1 gm in 100 mls @ 100 mls/hr IVPB DAILY [facility] PRN Reason: Protocol Last Admin: 11/21/17 09:39 Dose: 100 mls/hr Metoclopramide HCl (Reglan) 10 mg IVP TID PRN PRN Reason: Nausea/Vomiting Last Admin: 11/21/17 01:20 Dose: 10 mg Morphine Sulfate (Morphine) 5 mg IVP Q4 PRN PRN Reason: Pain, moderate (4-7) Last Admin: 11/21/17 09:39 Dose: 5 mg - Labs Labs: 11/20/17 07:15 11/20/17 07:15 PT 12.9 SECONDS (9.4-12.5) H 11/19/17 17:33 INR 1.13 (0.93-1.08) H 11/19/17 17:33 APTT 37.1 Seconds (25.1-36.5) H 11/19/17 17:33 - Constitutional Appears: Well - Head Exam Head Exam: ATRAUMATIC, NORMAL INSPECTION, NORMOCEPHALIC - Eye Exam Eye Exam: EOMI, Normal appearance, PERRL Pupil Exam: NORMAL ACCOMODATION, PERRL - ENT Exam ENT Exam: Mucous Membranes Moist, Normal Exam - Neck Exam Neck Exam: Full ROM, Normal Inspection. absent: Lymphadenopathy - Respiratory Exam Respiratory Exam: Clear to Ausculation Bilateral, NORMAL BREATHING PATTERN - Cardiovascular Exam Cardiovascular Exam: REGULAR RHYTHM, +S1, +S2. absent: Murmur - GI/Abdominal Exam GI & Abdominal Exam: Soft, Normal Bowel Sounds. absent: Tenderness - Extremities Exam Extremities Exam: Full ROM, Normal Capillary Refill, Normal Inspection. absent : Joint Swelling, Pedal Edema - Back Exam Back Exam: NORMAL INSPECTION - Neurological Exam Neurological Exam: Alert, Awake, CN II-XII Intact, Normal Gait, Oriented x3 - Psychiatric Exam Psychiatric exam: Normal Affect, Normal Mood - Skin Skin Exam: Dry, Intact, Normal Color, Warm Assessment and Plan - Assessment and Plan (Free Text) Assessment: 36M w. recurrent diverticulitis -fecal occult deferred -conservative management -pain medications changed from morphine q6 to morphine q4 -reglan added -NPO -IVF -cipro/flagyl -serial abd exams -will need colonoscopy when acute phase resolves <Darrell Coyle - Last Filed: 11/27/17 00:37> Objective - Vital Signs/Intake and Output Vital Signs (last 24 hours): Temp Pulse Resp BP Pulse Ox 97.9 F 75 20 122/78 98 11/24/17 07:30 11/24/17 07:30 11/24/17 07:30 11/24/17 17:29 11/24/17 07:30 - Labs Labs: 11/23/17 10:50 11/23/17 10:50 PT 12.9 SECONDS (9.4-12.5) H 11/19/17 17:33 INR 1.13 (0.93-1.08) H 11/19/17 17:33 APTT 37.1 Seconds (25.1-36.5) H 11/19/17 17:33 Assessment and Plan - Assessment and Plan (Free Text) Assessment: Patient was seen and examined by me. I agree with assessment and plan as per resident's note.
--- NOTE | 2017-11-21 12:46 | PN ---
DATE: SUBJECTIVE: The patient is 36 years old, seen and examined. Still complained of abdominal discomfort, left flank discomfort. No nausea or vomiting. Does not have appetite. Taking liquid diet. PHYSICAL EXAMINATION: VITAL SIGNS: He has temperature 99, pulse 73, respirations 18, blood pressure 139/93. LUNGS: Bilateral good airflow. No rhonchi or crackle. HEART: S1 and S2 audible. ABDOMEN: Soft, obese. Slight left upper quadrant and lower quadrant discomfort. NEUROLOGIC: He is awake and alert, able to communicate. LABORATORY DATA: His blood cultures are negative. ASSESSMENT: 1. Sigmoid diverticulitis. 2. History of pyelonephritis. 3. History of recurrent pancreatitis. 4. Morbid obesity. 5. Nonischemic cardiomyopathy. 6. Left nephrolithiasis with hydronephrosis. PLAN: Currently, the patient is on analgesic. He is getting Reglan as needed. He is on carvedilol. He has been started on clear liquid. We will monitor him closely. We will continue IV fluid, continue antibiotic, continue analgesic. Started on liquid diet. We will see his response and we will reevaluate in the a.m. Sammy Santiago MD
[2017-11-21 14:05] LABS: URINE BILIRUBIN NEGATIVE (NEGATIVE); URINE BLOOD LARGE (NEGATIVE); URINE GLUCOSE (UA) NEGATIVE (NEGATIVE); URINE LEUKOCYTE ESTERASE SMALL Leu/uL (NEGATIVE); URINE NITRATE NEGATIVE (NEGATIVE); URINE PROTEIN NEGATIVE mg/dL (<30 mg/dL); URINE UROBILINOGEN 0.2 E.U./dL (<1 E.U./dL)
[2017-11-21 14:06] LABS: URINE APPEARANCE CLEAR (CLEAR); URINE COLOR YELLOW (YELLOW)
[2017-11-21 14:18] LABS: URINE BACTERIA FEW (NEG)
--- NOTE | 2017-11-21 16:09 | CON ---
DATE: 11/20/2017 REASON FOR CONSULTATION: Abdominal pain, diverticulitis. HISTORY OF PRESENT ILLNESS: This 36-year-old patient with a past medical history of chronic pancreatitis, multiple admissions in the past, dilated cardiomyopathy, history of paroxysmal atrial fibrillation, congestive heart failure, was recently in the hospital with a diverticulitis with microperforation. Admitted with the worsening of the abdominal pain, nausea, vomiting. Patient also had a CAT scan done, which found to have some sigmoid diverticulitis. GI consult was requested to evaluate. PAST MEDICAL HISTORY: His other past medical history is significant for renal stones, kidney stones on the left side, status post stent placement, history of dilated cardiomyopathy, chronic kidney disease, paroxysmal atrial fibrillation, status post cholecystectomy before. ALLERGIES: HE IS ALLERGIC TO [employer]. SOCIAL HISTORY: He was an ex-heavy smoker, ex-heavy alcohol use and also is positive for smoking. REVIEW OF SYSTEMS: Positive as above. History of nausea, vomiting and abdominal pain. All other systems were reviewed and negative. PHYSICAL EXAMINATION: GENERAL: Patient is lying on the bed, not in any acute distress. VITAL SIGNS: Temperature is 98.2, pulse 77, blood pressure is 134/92, pulse 106, respirations 18. HEENT: Atraumatic, anicteric. NECK: Supple. HEART: S1, S2 heard. LUNGS: Bilateral air entry present. ABDOMEN: Soft. There is tenderness present in the left side of the abdomen. There is also mild tenderness in the epigastric area, tenderness noted in the left lower quadrant area. No rebound or guarding. EXTREMITIES: Mild pitting pedal edema present. NEUROLOGICAL: Alert, oriented. Moves all the extremities. LABORATORY DATA: Platelet count is 243. Chemistry showed essentially unremarkable. Renal function has improved to normal 1.3. Patient had a CT scan of the abdomen and pelvis. The CT findings as described above. As patient has hydronephrosis of the left kidney, ureteric stent was present. The hydronephrosis appears to be slightly increased in size. Chronic diverticulosis, has a mild stranding in the sigmoid colon suggestive of cholecystitis, diverticulitis. Also in the left kidney there is probably a cyst noticed, which is slightly increased and dilated cystic structure measuring about 3.4 cm slightly increased in size. IMPRESSION: This 36-year-old patient with a history of chronic pancreatitis, cardiomyopathy, paroxysmal atrial fibrillation, now admitted with worsening of the symptoms in the left-sided abdominal pain. Patient did have a history of diverticulitis with microperforation. Careful examination did not reveal any obvious. This is a 36-year-old patient with end-stage renal disease on hemodialysis, cardiomyopathy, paroxysmal atrial fibrillation, history of diverticulitis with microperforation, discharged recently from the hospital, comes in with worsening of the abdominal pain. Clinically suggests acute cholecystitis, diverticulitis. Patient's also concern is increasing hydronephrosis with the stent in that area, the most likely cause of the concern is due to the renal failure. Would recommend now is proton pump inhibitor. Would recommend at this point; 1. Clear liquid diet. 2. Continue the antibiotics. 3. Patient did have colonoscopy in 07/2016 and found to have multiple polyps removed, diverticulosis. We will consider repeating the endoscopy. 4. Would continue the pancreatic enzyme supplement. 5. Continue the proton pump inhibitor. 6. Continue the Pepcid. 7. Patient may need an elective colonoscopic evaluation again. The last colonoscopy done in 07/2016 showed multiple polyps and perforation. Would also need a urological followup. Thank you very much for allowing me to participate in the care of the patient. Souleymane Choe MD
--- NOTE | 2017-11-21 17:21 | CP.PCM.PN ---
Subjective - Date & Time of Evaluation Date of Evaluation: 11/21/17 Time of Evaluation: 11:30 - Subjective Subjective: S&E at bedside, chart reviewed, reports nausea, just received Reglan, No BM, c/ o diffuse abdominal pain. Urine dark monica.No fever or chills. Complains of feeling "hot". Objective - Vital Signs/Intake and Output Vital Signs (last 24 hours): Temp Pulse Resp BP Pulse Ox 99.0 F 65 18 123/83 96 11/21/17 07:30 11/21/17 17:07 11/21/17 07:30 11/21/17 17:07 11/21/17 07:30 Intake and Output: 11/21/17 11/21/17 06:59 18:59 Intake Total 840 Output Total 1300 Balance -460 - Medications Medications: Current Medications Carvedilol (Coreg) 12.5 mg PO BID [facility] [place] Last Admin: 11/21/17 17:07 Dose: 12.5 mg Metronidazole (Flagyl) 500 mg in 100 mls @ 100 mls/hr IVPB Q8 [facility] PRN Reason: Protocol Last Admin: 11/21/17 13:38 Dose: 100 mls/hr Dextrose/Sodium Chloride (Dextrose 5%/0.45% Ns 1000 Ml) 1,000 mls @ 75 mls/hr IV .[id number] [facility] [place] Last Admin: 11/21/17 08:41 Dose: 75 mls/hr Ceftriaxone Sodium (Rocephin 1 Gram Ivpb) 1 gm in 100 mls @ 100 mls/hr IVPB DAILY [facility] [place] PRN Reason: Protocol Last Admin: 11/21/17 09:39 Dose: 100 mls/hr Metoclopramide HCl (Reglan) 10 mg IVP TID PRN PRN Reason: Nausea/Vomiting Last Admin: 11/21/17 11:01 Dose: 10 mg Morphine Sulfate (Morphine) 5 mg IVP Q4 PRN PRN Reason: Pain, moderate (4-7) Last Admin: 11/21/17 13:44 Dose: 5 mg - Labs Labs: 11/20/17 07:15 11/20/17 07:15 PT 12.9 SECONDS (9.4-12.5) H 11/19/17 17:33 INR 1.13 (0.93-1.08) H 11/19/17 17:33 APTT 37.1 Seconds (25.1-36.5) H 11/19/17 17:33 - Constitutional Appears: No Acute Distress - Head Exam Head Exam: NORMOCEPHALIC - Eye Exam Eye Exam: Normal appearance. absent: Scleral icterus - ENT Exam ENT Exam: Mucous Membranes Moist - Neck Exam Neck Exam: Normal Inspection - Respiratory Exam Respiratory Exam: NORMAL BREATHING PATTERN. absent: Respiratory Distress - Cardiovascular Exam Cardiovascular Exam: +S1, +S2 - GI/Abdominal Exam GI & Abdominal Exam: Soft, Tenderness, Normal Bowel Sounds. absent: Guarding ( obese, diffuse tenderness mid to left side.), Rebound - Extremities Exam Extremities Exam: absent: Calf Tenderness - Neurological Exam Neurological Exam: Alert, Awake, Oriented x3 - Skin Skin Exam: Dry, Warm Assessment and Plan - Assessment and Plan (Free Text) Assessment: ASSESSMENT: Sigmoid diverticulitis Morbid Obesity Left nephrolithiaisis w/ hydronephrosis Cardiomyopathy H/O recurrent pancreatitis PLAN: Clear liquid continue Flagyl/Rocephin on Reglan prn pain mgt. on IVF Seen and discussed w/ Dr. Choe.
[2017-11-22] MEDS: Morphine 5 MG/ML SYRINGE IVP PRN ×6 (01:57→22:16)
[2017-11-22] MEDS: metroNIDAZOLE IV 500 mg/100 ml 500 MG/100 ML BAG IVPB SCH ×3 (06:06→21:18)
[2017-11-22] MEDS: cefTRIAXone 1 gm 1 GM/100 ML BAG IVPB SCH (10:17)
--- NOTE | 2017-11-22 11:27 | CP.PCM.PN ---
Subjective - Date & Time of Evaluation Date of Evaluation: 11/22/17 Time of Evaluation: 10:00 - Subjective Subjective: Patient seen and examined at bedside this AM. Patient states that he has been having nausea and vomiting after he drinks fluids but reglan is helping. Patient had a regular bowel movement without blood yesterday AM. Patient states that pain is still persistent. Patient deferred exam at this time. Objective - Vital Signs/Intake and Output Vital Signs (last 24 hours): Temp Pulse Resp BP Pulse Ox 98.1 F 63 18 130/85 98 11/22/17 08:12 11/22/17 10:17 11/22/17 08:12 11/22/17 10:17 11/22/17 08:12 Intake and Output: 11/22/17 11/22/17 06:59 18:59 Intake Total 380 Output Total 400 Balance -20 - Medications Medications: Current Medications Carvedilol (Coreg) 12.5 mg PO BID [facility] Last Admin: 11/22/17 10:17 Dose: 12.5 mg Metronidazole (Flagyl) 500 mg in 100 mls @ 100 mls/hr IVPB Q8 [facility] PRN Reason: Protocol Last Admin: 11/22/17 06:06 Dose: 100 mls/hr Dextrose/Sodium Chloride (Dextrose 5%/0.45% Ns 1000 Ml) 1,000 mls @ 75 mls/hr IV .[id number] [facility] Last Admin: 11/21/17 08:41 Dose: 75 mls/hr Ceftriaxone Sodium (Rocephin 1 Gram Ivpb) 1 gm in 100 mls @ 100 mls/hr IVPB DAILY [facility] PRN Reason: Protocol Last Admin: 11/22/17 10:17 Dose: 100 mls/hr Metoclopramide HCl (Reglan) 10 mg IVP TID PRN PRN Reason: Nausea/Vomiting Last Admin: 11/22/17 10:23 Dose: 10 mg Morphine Sulfate (Morphine) 5 mg IVP Q4 PRN PRN Reason: Pain, moderate (4-7) Last Admin: 11/22/17 10:17 Dose: 5 mg - Labs Labs: 11/20/17 07:15 11/20/17 07:15 PT 12.9 SECONDS (9.4-12.5) H 11/19/17 17:33 INR 1.13 (0.93-1.08) H 11/19/17 17:33 APTT 37.1 Seconds (25.1-36.5) H 11/19/17 17:33 - Constitutional Appears: Well, Non-toxic, No Acute Distress - Head Exam Head Exam: ATRAUMATIC, NORMOCEPHALIC - Eye Exam Eye Exam: Normal appearance. absent: Conjunctival injection, Scleral icterus - ENT Exam ENT Exam: Mucous Membranes Moist, Normal Oropharynx - Respiratory Exam Respiratory Exam: NORMAL BREATHING PATTERN. absent: Accessory Muscle Use, Respiratory Distress - GI/Abdominal Exam Additional comments: Patient deferred - Neurological Exam Neurological Exam: Alert, Awake, Oriented x3 - Psychiatric Exam Psychiatric exam: Normal Affect, Normal Mood Assessment and Plan - Assessment and Plan (Free Text) Assessment: 36M w/abdominal pain likely d/t chronic diverticulitis (improved from prior admission) and renal inflammation Plan -conservative management -pain and nausea medication PRN managed by primary -Advance diet as tolerated -cipro/flagyl -will need colonoscopy when acute phase diverticulitis resolves -Recommend nephrology consultation -No surgical intervention indicated -Will continue to follow Discussed with Dr. Leonides Khan, PGY2
--- NOTE | 2017-11-22 13:59 | CP.PCM.PN ---
<Thania Ge - Last Filed: 11/22/17 13:59> Subjective - Date & Time of Evaluation Date of Evaluation: 11/22/17 Time of Evaluation: 11:10 - Subjective Subjective: Seen and examined at the bedside late this morning, chart review. Patient denies nausea or vomiting, fever or chills. Still has abdominal pain to the left lower quadrant and mid abdomen. No reports of diarrhea. Still remains to have no appetite. Encouraged to drink fluids. Objective - Vital Signs/Intake and Output Vital Signs (last 24 hours): Temp Pulse Resp BP Pulse Ox 98.1 F 63 18 130/85 98 11/22/17 08:12 11/22/17 10:17 11/22/17 08:12 11/22/17 10:17 11/22/17 08:12 Intake and Output: 11/22/17 11/22/17 06:59 18:59 Intake Total 380 Output Total 400 Balance -20 - Medications Medications: Current Medications Carvedilol (Coreg) 12.5 mg PO BID [facility] Last Admin: 11/22/17 10:17 Dose: 12.5 mg Famotidine (Pepcid) 20 mg PO 1000,2200 [facility] Metronidazole (Flagyl) 500 mg in 100 mls @ 100 mls/hr IVPB Q8 [facility] PRN Reason: Protocol Last Admin: 11/22/17 06:06 Dose: 100 mls/hr Dextrose/Sodium Chloride (Dextrose 5%/0.45% Ns 1000 Ml) 1,000 mls @ 75 mls/hr IV .[id number] [facility] Last Admin: 11/21/17 08:41 Dose: 75 mls/hr Ceftriaxone Sodium (Rocephin 1 Gram Ivpb) 1 gm in 100 mls @ 100 mls/hr IVPB DAILY [facility] PRN Reason: Protocol Last Admin: 11/22/17 10:17 Dose: 100 mls/hr Metoclopramide HCl (Reglan) 10 mg IVP TID PRN PRN Reason: Nausea/Vomiting Last Admin: 11/22/17 10:23 Dose: 10 mg Morphine Sulfate (Morphine) 5 mg IVP Q4 PRN PRN Reason: Pain, moderate (4-7) Last Admin: 11/22/17 10:17 Dose: 5 mg - Labs Labs: 11/20/17 07:15 11/20/17 07:15 PT 12.9 SECONDS (9.4-12.5) H 11/19/17 17:33 INR 1.13 (0.93-1.08) H 11/19/17 17:33 APTT 37.1 Seconds (25.1-36.5) H 11/19/17 17:33 - Constitutional Appears: No Acute Distress - Head Exam Head Exam: NORMOCEPHALIC - Eye Exam Eye Exam: Normal appearance. absent: Scleral icterus - ENT Exam ENT Exam: Mucous Membranes Dry - Neck Exam Neck Exam: Normal Inspection - Respiratory Exam Respiratory Exam: NORMAL BREATHING PATTERN. absent: Respiratory Distress - Cardiovascular Exam Cardiovascular Exam: +S1, +S2 - GI/Abdominal Exam GI & Abdominal Exam: Soft, Tenderness (left quadrant), Normal Bowel Sounds. absent: Guarding (obese), Rebound - Extremities Exam Extremities Exam: absent: Calf Tenderness - Neurological Exam Neurological Exam: Alert, Awake, Oriented x3 - Skin Skin Exam: Dry, Warm Assessment and Plan - Assessment and Plan (Free Text) Assessment: ASSESSMENT: Sigmoid diverticulitis, history of microperforation Morbid Obesity Left nephrolithiaisis w/ hydronephrosis Cardiomyopathy H/O recurrent pancreatitis PLAN: Clear liquid continue Flagyl/Rocephin on Reglan prn On Pepcid pain mgt. on IVF Seen by surgery no surgical intervention needed at this time. Seen and discussed w/ Dr. Choe. <Souleymane Choe V - Last Filed: 11/23/17 00:20> Objective - Vital Signs/Intake and Output Vital Signs (last 24 hours): Temp Pulse Resp BP Pulse Ox 97.2 F L 65 20 137/82 97 11/22/17 16:00 11/22/17 18:59 11/22/17 16:00 11/22/17 18:59 11/22/17 16:00 Intake and Output: 11/22/1718 18:59 06:59 Intake Total 760 Output Total 700 Balance 60 - Medications Medications: Current Medications Carvedilol (Coreg) 12.5 mg PO BID [facility] Last Admin: 11/22/17 18:59 Dose: 12.5 mg Famotidine (Pepcid) 20 mg PO 1000,2200 [facility] Last Admin: 11/22/17 21:20 Dose: 20 mg Metronidazole (Flagyl) 500 mg in 100 mls @ 100 mls/hr IVPB Q8 [facility] PRN Reason: Protocol Last Admin: 11/22/17 21:18 Dose: 100 mls/hr Dextrose/Sodium Chloride (Dextrose 5%/0.45% Ns 1000 Ml) 1,000 mls @ 75 mls/hr IV .[id number] [facility] Last Admin: 11/22/17 21:18 Dose: 75 mls/hr Ceftriaxone Sodium (Rocephin 1 Gram Ivpb) 1 gm in 100 mls @ 100 mls/hr IVPB DAILY [facility] PRN Reason: Protocol Last Admin: 11/22/17 10:17 Dose: 100 mls/hr Metoclopramide HCl (Reglan) 10 mg IVP TID PRN PRN Reason: Nausea/Vomiting Last Admin: 11/22/17 18:59 Dose: 10 mg Morphine Sulfate (Morphine) 5 mg IVP Q4 PRN PRN Reason: Pain, moderate (4-7) Last Admin: 11/22/17 22:16 Dose: 5 mg - Labs Labs: 11/20/17 07:15 11/20/17 07:15 PT 12.9 SECONDS (9.4-12.5) H 11/19/17 17:33 INR 1.13 (0.93-1.08) H 11/19/17 17:33 APTT 37.1 Seconds (25.1-36.5) H 11/19/17 17:33 Attending/Attestation - Attestation I have personally seen and examined this patient.: Yes I have fully participated in the care of the patient.: Yes I have reviewed all pertinent clinical information, including history, physical exam and plan: Yes Notes (Text): This is an addendum to GI progress report dictated by Thania Ge APN.The patient was seen and examined earlier. Medical records, lab studies, imagings were reviewed. Last 24 hours events reviewed. Agreed with the above treatment plan as outlined in Thania Ge APN's notes the with the addition of the following Patient still complains of discomfort in the left side. On examination patient is a tenderness in the left side of the abdomen LLQ quadrant. would recommend to complete antibiotics as per ID Elective colonoscopic evaluation as patient has history of prior colon polyps, fair colon preparation and h/o microperforation. 11/23/17 00:16 11/23/17 00:20
--- NOTE | 2017-11-22 16:13 | PN ---
DATE: SUBJECTIVE: The patient is 36 years old, seen and examined. He states he feels his back pain has improved somewhat, tolerating clear liquid diet, but he still has flank pain. PHYSICAL EXAMINATION: VITAL SIGNS: He is afebrile. Pulse 63, respirations 18, and blood pressure 130/85. LUNGS: Bilateral good airflow. No rhonchi or crackles. HEART: S1, S2 audible. ABDOMEN: Soft. Slight left upper quadrant and lower quadrant discomfort. No rebound, no guarding. NEUROLOGICAL: He is awake and alert, able to communicate. ASSESSMENT: 1. Sigmoid diverticulitis. 2. History of recurrent pancreatitis. 3. Hypertension. 4. Nonischemic cardiomyopathy. 5. Morbid obesity. 6. Left nephrolithiasis. PLAN: Currently, the patient is on metronidazole, Rocephin. Start him on Pepcid. Continue him on current medication. We might advance diet depending on GI's input. Currently, the patient is afebrile and not vomiting. We might be able to advance his diet and make discharge plan in a.m. Sammy Santiago MD
[2017-11-22] MEDS: Dextrose 5%/0.45% NS 1,000 ML IV SCH (21:18)
[2017-11-23] MEDS: Morphine 5 MG/ML SYRINGE IVP PRN ×6 (02:22→23:42)
[2017-11-23] MEDS: Dextrose 5%/0.45% NS 1,000 ML IV SCH (06:02)
[2017-11-23] MEDS: metroNIDAZOLE IV 500 mg/100 ml 500 MG/100 ML BAG IVPB SCH ×3 (06:03→21:21)
--- NOTE | 2017-11-23 08:32 | PN ---
DATE: 11/22/2017 CHIEF COMPLAINT: Abdominal pain. HISTORY OF PRESENT ILLNESS: This is a 36-year-old male who is known to me from prior admissions. Patient is a morbidly obese, poorly controlled, noncompliant diabetic. He was recently hospitalized with perforated diverticular disease. He improved with fluids and antibiotics and did not have surgery. Patient has significant heart disease as well with recurrent episodes of congestive heart failure. Urologically, patient has a kidney stone, he has an indwelling left ureteral stent. Patient has been referred to other urologists given the complicated medical history. Patient is morbidly obese and too heavy to have an extracorporeal shockwave lithotripsy as he exceeds the table weight limit. Patient had removal of the ureteral stent a few months ago and subsequently developed sepsis with life-threatening hypotension, which required the stent to be replaced. I have had multiple discussions with the patient who wants the stent removed. I told him that this is not in his best interest as last time he had life-threatening sepsis. Patient is now admitted again with left-sided pain, which appears to be GI in origin. CT scan was reviewed and there is a stone noted which appears to be 1.7 x 0.6 cm in the left lower pole. There was a question of hydronephrosis; however, this is likely parapelvic cyst or possibly from vesicoureteral reflux with the stent in place. VITAL SIGNS: Patient is afebrile. Temperature of 98.1, blood pressure of 130/85. LABORATORY DATA: Blood cultures no growth after 3 days. WBC count 8.7. Urinalysis: 1 to 3 rbc, 2 to 5 wbc, negative for nitrites. Patient's GFR is greater than 60 with a creatinine of 1.3. BMI of 48.7. RECOMMENDATIONS: My recommendation is to continue treatment for likely diverticular disease. Urologically, patient is stable with a stent in place. Patient's GFR and creatinine are normal and my recommendation would be, if medically okay, patient should have a CT scan with IV contrast to see if these are parapelvic cysts or if there is hydronephrosis. If it appears hydronephrosis, we can consider changing the stent, but I would not remove the stent unless patient has a percutaneous nephrostomy. Percutaneous nephrostomy would also be preferable if this appears to be due to vesicoureteral reflux. Alternatively, the plan would be to discharge the patient when he has recovered and patient will need to follow up with the urologist that was recommended to him. Given the patient's overwhelming medical issues, treatment of his stone is beyond the scope of what could be offered him at [facility]. We do not have adequate equipment for a percutaneous nephrolithotomy. We do not have a degeneration flexible scope that would be able to deflect the laser fiber to fragment the stone. I would not remove the stent without fragmenting the stone as the patient had urosepsis in the past when this was done. Unfortunately, there was not much to offer this patient from my standpoint, other than a stent change, which should be done in the next couple of weeks anyway as the stent has been in place since August. Kamari Love MD
[2017-11-23 11:01] LABS: BASO # 0.01 K/mm3 (0.0-2.0); BASO % 0.1 % (0.0-3.0); EOS # 0.1 (0.0-0.7); EOS % 1.8 % (1.5-5.0); GRAN # 4.44 (1.4-6.5); GRAN % 57.3 % (50.0-68.0); HEMOGLOBIN 12.3 g/dL (14.0-18.0); LYMPH # 2.1 (1.2-3.4); LYMPH % 26.8 % (22.0-35.0); MEAN CELL VOLUME 95.9 fl (80.0-105.0); MEAN CORPUSCULAR HEMOGLOBIN 31.2 pg (25.0-35.0); MEAN CORPUSCULAR HGB CONC 32.5 g/dl (31.0-37.0); MEAN PLATELET VOLUME 10.3 fl (7.0-11.0); MONO # 1.1 (0.1-0.6); RBC 3.94 10^6/uL (3.5-6.1); RED CELL DISTRIBUTION WIDTH 17.9 % (11.5-14.5); WHITE BLOOD COUNT 7.8 10^3/ul (4.5-11.0)
[2017-11-23 11:20] LABS: ALBUMIN 3.9 g/dL (3.0-4.8); ALT/SGPT 20 U/L (7-56); AST/SGOT 19 U/L (17-59); BLOOD UREA NITROGEN 6 mg/dL (7-21); CALCIUM 9.7 mg/dL (8.4-10.5); GFR AFRICAN-AMERICAN > 60; GFR NON-AFRICAN AMERICAN > 60
[2017-11-23] MEDS: cefTRIAXone 1 gm 1 GM/100 ML BAG IVPB SCH (12:04)
[2017-11-23] MEDS: Amylase/Lipase/Protease 5,000 Units ECC PO SCH ×2 (12:05→17:18)
--- NOTE | 2017-11-23 17:48 | CP.PCM.PN ---
<Thania Ge - Last Filed: 11/23/17 17:47> Subjective - Date & Time of Evaluation Date of Evaluation: 11/23/17 Time of Evaluation: 10:40 - Subjective Subjective: S&E at bedside, c/o nausea when eating, no reports of fever or chills, still have abdominal pain. Seen by urology, recommendation reviewed. Objective - Vital Signs/Intake and Output Vital Signs (last 24 hours): Temp Pulse Resp BP Pulse Ox 98.9 F 64 20 137/91 H 96 11/23/17 07:30 11/23/17 17:18 11/23/17 07:30 11/23/17 17:18 11/23/17 07:30 Intake and Output: 11/23/17 11/23/17 06:59 18:59 Intake Total 2020 Output Total 1500 Balance 520 - Medications Medications: Current Medications Amylase (Pancrease 67466 U-5000 U-61752 U) 15,000 unit PO AC [facility] Last Admin: 11/23/17 17:18 Dose: 15,000 unit Carvedilol (Coreg) 12.5 mg PO BID [facility] Last Admin: 11/23/17 17:18 Dose: 12.5 mg Famotidine (Pepcid) 20 mg PO 1000,2200 [facility] Last Admin: 11/23/17 11:04 Dose: 20 mg Metronidazole (Flagyl) 500 mg in 100 mls @ 100 mls/hr IVPB Q8 [facility] PRN Reason: Protocol Last Admin: 11/23/17 15:48 Dose: 100 mls/hr Dextrose/Sodium Chloride (Dextrose 5%/0.45% Ns 1000 Ml) 1,000 mls @ 75 mls/hr IV .[id number] [facility] Last Admin: 11/23/17 06:02 Dose: 75 mls/hr Ceftriaxone Sodium (Rocephin 1 Gram Ivpb) 1 gm in 100 mls @ 100 mls/hr IVPB DAILY [facility] PRN Reason: Protocol Last Admin: 11/23/17 12:04 Dose: 100 mls/hr Metoclopramide HCl (Reglan) 10 mg IVP TID PRN PRN Reason: Nausea/Vomiting Last Admin: 11/23/17 11:05 Dose: 10 mg Morphine Sulfate (Morphine) 5 mg IVP Q4 PRN PRN Reason: Pain, moderate (4-7) Last Admin: 11/23/17 15:48 Dose: 5 mg - Labs Labs: 11/23/17 10:50 11/23/17 10:50 PT 12.9 SECONDS (9.4-12.5) H 11/19/17 17:33 INR 1.13 (0.93-1.08) H 11/19/17 17:33 APTT 37.1 Seconds (25.1-36.5) H 11/19/17 17:33 - Constitutional Appears: No Acute Distress - Head Exam Head Exam: NORMOCEPHALIC - Eye Exam Eye Exam: Scleral icterus. absent: Normal appearance - ENT Exam ENT Exam: Mucous Membranes Moist - Neck Exam Neck Exam: Normal Inspection - Respiratory Exam Respiratory Exam: NORMAL BREATHING PATTERN. absent: Respiratory Distress - Cardiovascular Exam Cardiovascular Exam: +S1, +S2 - GI/Abdominal Exam GI & Abdominal Exam: Soft. absent: Tenderness - Extremities Exam Extremities Exam: absent: Calf Tenderness, Pedal Edema - Neurological Exam Neurological Exam: Alert, Awake, Oriented x3 - Skin Skin Exam: Dry, Warm Assessment and Plan - Assessment and Plan (Free Text) Assessment: ASSESSMENT: Sigmoid diverticulitis, history of microperforation Morbid Obesity Left nephrolithiaisis w/ hydronephrosis Cardiomyopathy H/O recurrent pancreatitis PLAN: advance diet puree low fiber diet restart Pancreatic enzymes: [id number] before meals continue Flagyl/Rocephin on Reglan prn, short course On Pepcid pain mgt. on IVF repeat cbc/cmp this am Seen by surgery no surgical intervention needed at this time. Seen and discussed w/ Dr. Choe. <Souleymane Choe V - Last Filed: 11/23/17 23:32> Objective - Vital Signs/Intake and Output Vital Signs (last 24 hours): Temp Pulse Resp BP Pulse Ox 98.0 F 64 18 137/91 H 96 11/23/17 16:00 11/23/17 17:18 11/23/17 16:00 11/23/17 17:18 11/23/17 16:00 - Medications Medications: Current Medications Amylase (Pancrease 28528 U-5000 U-95856 U) 15,000 unit PO AC [facility] Last Admin: 11/23/17 17:18 Dose: 15,000 unit Carvedilol (Coreg) 12.5 mg PO BID [facility] Last Admin: 11/23/17 17:18 Dose: 12.5 mg Famotidine (Pepcid) 20 mg PO 1000,2200 [facility] Last Admin: 11/23/17 21:22 Dose: 20 mg Metronidazole (Flagyl) 500 mg in 100 mls @ 100 mls/hr IVPB Q8 [facility] PRN Reason: Protocol Last Admin: 11/23/17 21:21 Dose: 100 mls/hr Dextrose/Sodium Chloride (Dextrose 5%/0.45% Ns 1000 Ml) 1,000 mls @ 75 mls/hr IV .[id number] [facility] Last Admin: 11/23/17 06:02 Dose: 75 mls/hr Ceftriaxone Sodium (Rocephin 1 Gram Ivpb) 1 gm in 100 mls @ 100 mls/hr IVPB DAILY [facility] PRN Reason: Protocol Last Admin: 11/23/17 12:04 Dose: 100 mls/hr Metoclopramide HCl (Reglan) 10 mg IVP TID PRN PRN Reason: Nausea/Vomiting Last Admin: 11/23/17 20:00 Dose: 10 mg Morphine Sulfate (Morphine) 5 mg IVP Q4 PRN PRN Reason: Pain, moderate (4-7) Last Admin: 11/23/17 20:01 Dose: 5 mg - Labs Labs: 11/23/17 10:50 11/23/17 10:50 PT 12.9 SECONDS (9.4-12.5) H 11/19/17 17:33 INR 1.13 (0.93-1.08) H 11/19/17 17:33 APTT 37.1 Seconds (25.1-36.5) H 11/19/17 17:33 Attending/Attestation - Attestation I have personally seen and examined this patient.: Yes I have fully participated in the care of the patient.: Yes I have reviewed all pertinent clinical information, including history, physical exam and plan: Yes Notes (Text): This is an addendum to GI progress report dictated by Thania Ge APN.The patient was seen and examined earlier. Medical records, lab studies, imagings were reviewed. Last 24 hours events reviewed. Agreed with the above treatment plan as outlined in Thania Ge APN's notes the with the addition of the following 11/23/17 23:32
[2017-11-24] MEDS: Morphine 5 MG/ML SYRINGE IVP PRN ×4 (03:37→16:19)
[2017-11-24] MEDS: Dextrose 5%/0.45% NS 1,000 ML IV SCH ×2 (05:32→13:31)
[2017-11-24] MEDS: metroNIDAZOLE IV 500 mg/100 ml 500 MG/100 ML BAG IVPB SCH ×2 (05:32→13:27)
[2017-11-24] MEDS: Amylase/Lipase/Protease 5,000 Units ECC PO SCH (07:45)
--- NOTE | 2017-11-24 08:23 | PN ---
DATE: SUBJECTIVE: Patient is a 36 years old, seen and examined, lying in bed, seems to be comfortable, still he does not have appetite. He still has left upper quadrant discomfort. No nausea, vomiting or diarrhea. PHYSICAL EXAMINATION VITAL SIGNS: Patient is afebrile, pulse 81, respirations 20, blood pressure 139/73. LUNGS: Bilateral fair airflow. No rhonchi or crackle. HEART: S1 and S2, audible. ABDOMEN: Soft, slight palpable discomfort in the left upper and lower quadrant area. No rebound. No guarding. NEUROLOGICAL: He is awake, alert, oriented and communicative. LABORATORY DATA: WBC is 7.8, hemoglobin 12.3, hematocrit 37.8, platelet of 267. Chemistry: Sodium 137, potassium 3.9, chloride 106, CO2 21, BUN 6, creatinine 1.2, blood sugar of 114. ASSESSMENT: 1. Sigmoid diverticulitis. 2. Left nephrolithiasis status post stent placement. 3. Nonischemic cardiomyopathy. 4. Morbid obesity. 5. Recurrent pancreatitis. PLAN: We will advance diet today. We will advance to pureed, add pancreatic enzymes and watch him and if he remains stable, he can be discharged in the a.m. Dr. Love's input noted and appreciated. I will reach out to him to get him urologist out of town who can do percutaneous nephrolithotomy. I will reach out to Dr. Love and get the patient . Sammy Santiago MD
[2017-11-24 08:32] VITALS: PULSE 75; RESP 20; TEMP 97.9; O2SAT 98
[2017-11-24] MEDS: cefTRIAXone 1 gm 1 GM/100 ML BAG IVPB SCH (09:32)
[2017-11-24] MEDS ORDERED: Amylase/Lipase/Protease 5,000 Units ECC PO SCH (16:30)
[2017-11-24 17:30] VITALS: BP 122/78
--- NOTE | 2017-11-24 18:37 | CP.PCM.PN ---
Subjective - Date & Time of Evaluation Date of Evaluation: 11/24/17 Time of Evaluation: 11:40 - Subjective Subjective: Seen and examined at the bedside earlier today, chart review. Patient reporting to tolerate diet intake, although reports that his stools are watery/ soft states that pancreatic enzyme dose is not enough. No reports of overt GI bleeding. Abdominal pain with some improvement, no reports of nausea or vomiting fever or chills. Objective - Vital Signs/Intake and Output Vital Signs (last 24 hours): Temp Pulse Resp BP Pulse Ox 97.9 F 75 20 122/78 98 11/24/17 07:30 11/24/17 07:30 11/24/17 07:30 11/24/17 17:29 11/24/17 07:30 Intake and Output: 11/24/17 11/24/17 06:59 18:59 Intake Total 1380 360 Output Total 600 800 Balance 780 -440 - Labs Labs: 11/23/17 10:50 11/23/17 10:50 PT 12.9 SECONDS (9.4-12.5) H 11/19/17 17:33 INR 1.13 (0.93-1.08) H 11/19/17 17:33 APTT 37.1 Seconds (25.1-36.5) H 11/19/17 17:33 - Constitutional Appears: No Acute Distress - Eye Exam Eye Exam: Normal appearance. absent: Scleral icterus - ENT Exam ENT Exam: Mucous Membranes Moist - Neck Exam Neck Exam: Normal Inspection - Respiratory Exam Respiratory Exam: NORMAL BREATHING PATTERN. absent: Respiratory Distress - Cardiovascular Exam Cardiovascular Exam: +S1, +S2 - GI/Abdominal Exam GI & Abdominal Exam: Soft, Normal Bowel Sounds. absent: Guarding, Tenderness, Rebound Additional comments: obese - Extremities Exam Extremities Exam: absent: Calf Tenderness, Pedal Edema - Neurological Exam Neurological Exam: Alert, Awake, Oriented x3 Assessment and Plan - Assessment and Plan (Free Text) Assessment: ASSESSMENT: Sigmoid diverticulitis, history of microperforation,patient improve clinically Morbid Obesity Left nephrolithiaisis w/ hydronephrosis Cardiomyopathy H/O recurrent pancreatitis PLAN: continue puree low fiber diet increase Pancreatic enzymes: [id number] units before meals continue Flagyl/Rocephin on Reglan prn, short course On Pepcid pain mgt. on IVF possible DC home today, can FU in outpatient office Seen and discussed w/ Dr. Choe.
--- NOTE | 2017-11-25 05:16 | DS ---
HISTORY OF PRESENT ILLNESS: Patient is 36-year-old, who was admitted with abdominal pain. He was found to have sigmoid diverticulitis. He has been n.p.o. and was given IV antibiotics. He also has left nephrolithiasis, gets intermittent left flank pain, slowly improving. Surgical consult was requested and then the plan was to treat him conservatively medically. He has been on IV antibiotic and IV fluid. Doing well. PHYSICAL EXAMINATION: GENERAL: He is awake, alert, oriented, communicative. VITAL SIGNS: He is afebrile. Pulse 75, respiration 20, blood pressure 119/83. LUNGS: Bilateral good airflow. No rhonchi or crackle. HEART: S1 and S2, audible. ABDOMEN: Soft, nontender. No rebound, no guarding. NEUROLOGIC: He is awake, alert, oriented, communicative. LABORATORY DATA: There is no new lab available today. ASSESSMENT AND PLAN: 1. Sigmoid diverticulitis. 2. Left nephrolithiasis status post stent placement. 3. Hypertension. 4. Hyperlipidemia. 5. Cardiomyopathy. 6. Recurrent pancreatitis, status post celiac block. PLAN: I discussed with Dr. Love. He will arrange for the ureteral lithotripsy. Because of him being obese, external lithotripsy is close to impossible. He does not want to remove the stent because he will get hydronephrosis again. So, patient will be discharged home on p.o. Levaquin and Flagyl to complete his full course of 10 days of antibiotics. He needs 6 more days of antibiotics that will be called in, and he was given analgesic for a week. He will follow up with Pain Management. Sammy Santiago MD
== END 2017-11-24 18:02 | disposition home or self-care (01) | DRG 392 ==
LOC: ED 16:53 → ERH 21:27 → OBSVTOIN 21:30 → ERH 21:51 → 5RNO 23:09
PROVIDERS: ADMIT Internal Medicine; ATTEND Internal Medicine
DX: K57.32 Diverticulitis of large intestine without perforation or abscess without bleeding (principal); I13.0 Hypertensive heart and chronic kidney disease with heart failure and stage 1 through stage 4 chronic kidney disease, or unspecified chronic kidney disease; I50.9 Heart failure, unspecified; I42.0 Dilated cardiomyopathy; K86.1 Other chronic pancreatitis; E11.22 Type 2 diabetes mellitus with diabetic chronic kidney disease; N13.2 Hydronephrosis with renal and ureteral calculous obstruction; Z68.42 Body mass index [BMI] 45.0-49.9, adult; N18.9 Chronic kidney disease, unspecified; E66.01 Morbid (severe) obesity due to excess calories; I48.0 Paroxysmal atrial fibrillation; E78.5 Hyperlipidemia, unspecified; Z87.891 Personal history of nicotine dependence; Z86.010 Personal history of colon polyps

== ENCOUNTER 2017-11-26 22:47 | Inpatient (IN) | payer BC ==
[2017-11-26 22:48] VITALS: PULSE 95; BMI 48.7
--- NOTE | 2017-11-26 22:59 | ED PDOC ---
Arrival/HPI - General Time Seen by Provider: 11/26/17 22:50 Historian: Patient - History of Present Illness Narrative History of Present Illness (Text): 11/26/17 22:53 Gareth Leblanc is a 37 year old male, whose past medical history includes diveriticulitis, pancreatitis, hypertension, chronic kidney disease, nephrolithiasis s/p stent placement, and non-ischemic cardiomyopathy, who presents to the Emergency department complaining of abdominal pain. Patient states he was recently admitted for diverticulitis on 11/19/2017, evaluated by surgery and GI, and discharged home on 11/24/2017. Patient states he has been experiencing LUQ/LLQ pain since he was discharged with associated nausea, vomiting, and diarrhea. Patient reports decreased PO intake secondary to symptoms. Patient denies any fever, chills, chest pain, shortness of breath, neck pain, headache, dizziness, trauma/injury, suicidal/homicidal ideation or any other complaints. Symptom Onset: Gradual Symptom Course: Unchanged Activities at Onset: Light Context: Home Past Medical History - Provider Review Nursing Documentation Reviewed: Yes - Past History Past History: Non-Contributing - Infectious Disease Hx of Infectious Diseases: None - Tetanus Immunization Tetanus Immunization: Unknown - Cardiac Hx Congestive Heart Failure: Yes Hx Hypertension: Yes - Pulmonary Hx Respiratory Disorders: Yes Hx Sleep Apnea: Yes - Neurological Hx Neurological Disorder: No - HEENT Hx HEENT Disorder: No - Renal Hx Renal Disorder: Yes (hydronephrosis, L ureteral pigtail stent) Hx Kidney Stones: Yes Hx Renal Failure: Yes - Endocrine/Metabolic Hx Endocrine Disorders: No - Hematological/Oncological Hx Blood Disorders: No - Integumentary Hx Dermatological Disorder: No - Musculoskeletal/Rheumatological Hx Falls: No - Gastrointestinal Hx Gastroesophageal Reflux: Yes - Genitourinary/Gynecological Hx Genitourinary Disorders: Yes (urinary retention) Hx Urinary Tract Infection: Yes - Psychiatric Hx Psychophysiologic Disorder: No Hx Substance Use: No - Past Surgical History Past Surgical History: No Previous - Surgical History Hx Cholecystectomy: Yes - Anesthesia Hx Anesthesia: Yes Hx Anesthesia Reactions: No Hx Malignant Hyperthermia: No - Suicidal Assessment Feels Threatened In Home Enviroment: No Family/Social History - Physician Review Nursing Documentation Reviewed: Yes Family/Social History: Unknown Family HX Smoking Status: Current Some Days Smoker Hx Alcohol Use: No Hx Substance Use: No Hx Substance Use Treatment: No Allergies/Home Meds Allergies/Adverse Reactions: Allergies LUZ Inhibitors Allergy (Verified 10/22/17 15:28) ANGIOEDEMA Home Medications: Home Meds Medication Instructions Recorded Confirmed Carvedilol [Coreg] 12.5 mg PO BID 08/06/17 11/26/17 Famotidine [Pepcid] 20 mg PO DAILY 08/06/17 11/26/17 Furosemide [Lasix] 40 mg PO BID 08/06/17 11/26/17 Spironolactone [Aldactone] 25 mg PO DAILY 08/06/17 11/26/17 Review of Systems - Physician Review All systems were reviewed & negative as marked: Yes - Review of Systems Constitutional: Normal. absent: Fevers Eyes: Normal ENT: Normal Respiratory: Normal. absent: SOB, Cough Cardiovascular: Normal. absent: Chest Pain Gastrointestinal: Abdominal Pain, Diarrhea, Nausea, Vomiting Genitourinary Male: Normal. absent: Dysuria, Frequency, Hematuria, Urinary Output Changes Musculoskeletal: Normal. absent: Back Pain, Neck Pain Skin: Normal. absent: Rash Neurological: Normal. absent: Headache, Dizziness Endocrine: Normal Hemo/Lymphatic: Normal Psychiatric: Normal Physical Exam Vital Signs Reviewed: Yes Vital Signs Temp Pulse Resp BP Pulse Ox 11/27/17 00:48 78 18 119/78 98 11/26/17 22:48 98.6 F 89 20 160/89 H 98 Temperature: Afebrile Blood Pressure: Normal Pulse: Regular Respiratory Rate: Normal Appearance: Positive for: Well-Appearing, Non-Toxic, Comfortable Pain Distress: None Mental Status: Positive for: Alert and Oriented X 3 - Systems Exam Head: Present: Atraumatic, Normocephalic Pupils: Present: PERRL Extroacular Muscles: Present: EOMI Conjunctiva: Present: Normal Mouth: Present: Moist Mucous Membranes Neck: Present: Normal Range of Motion. No: Meningeal Signs, MIDLINE TENDERNESS , Paraspinal Tenderness Respiratory/Chest: Present: Clear to Auscultation, Good Air Exchange. No: Respiratory Distress, Accessory Muscle Use Cardiovascular: Present: Regular Rate and Rhythm, Normal S1, S2. No: Murmurs Abdomen: Present: Tenderness (LUQ/LLQ tenderness), Normal Bowel Sounds. No: Distention, Peritoneal Signs Back: Present: Normal Inspection. No: CVA Tenderness, Midline Tenderness, Paraspinal Tenderness Upper Extremity: Present: Normal Inspection. No: Cyanosis, Edema Lower Extremity: Present: Normal Inspection. No: Edema Neurological: Present: GCS=15, CN II-XII Intact, Speech Normal Skin: Present: Warm, Dry, Normal Color. No: Rashes Psychiatric: Present: Alert, Oriented x 3, Normal Insight, Normal Concentration Medical Decision Making ED Course and Treatment: 11/26/17 22:53 Impression: 37 year old male c/o LUQ/LLQ abdominal pain, nausea, vomiting, and diarrhea. Plan: -- CT Abdomen and Pelvis -- CXR -- Labs, lipase -- Urinalysis -- IV fluids -- Zofran -- Pepcid -- Dilaudid -- Reassess and disposition Progress Notes: 11/26/17 23:30 Chest X-ray viewed, shows no acute processes. 11/27/17 03:14 CT Abdomen and Pelvis shows: LIMITATIONS: Artifact related to the patient's body habitus. LOWER THORAX: Heart appears enlarged for age. Small hiatal hernia. ABDOMEN: LIVER: No acute abnormality of the liver identified. GALLBLADDER AND BILE DUCTS: Cholecystectomy clips. PANCREAS: No CT evidence of acute pancreatitis. SPLEEN: No acute abnormality of the spleen identified. ADRENALS: No acute abnormality of the adrenal glands identified. KIDNEYS AND URETERS: Double-J left ureteral stent in place. This does not appear to be malpositioned. No calcifications seen along the course of the stent to suggest left ureteral stones. Moderate left hydronephrosis and left perinephric stranding, similar in appearance to the prior CT, cause not identified. 1.7 cm nonobstructing stone in the left kidney lower pole. Stable appearance of a 3 cm fluid density lesion in the left kidney upper pole, most likely a cyst. No evidence of significant left hydroureter. STOMACH AND BOWEL: See below. Colonic diverticulosis. Otherwise, no significant abnormality of the bowel is identified. No evidence of bowel obstruction. APPENDIX: Appendix is seen, and is within normal limits in appearance. PELVIS: BLADDER: No acute abnormality of the bladder identified. REPRODUCTIVE: No acute abnormality of the reproductive organs is seen. ABDOMEN and PELVIS: INTRAPERITONEAL SPACE: Best seen on image 145 series 3, there is a small collection of fluid and air in the left pelvis. This could represent a small abscess or a fistulous tract, given its appearance. It has a thick wall, and there is mild infiltration of the adjacent fat. It abuts the sigmoid colon, where there are sigmoid diverticula, and it could be the sequela of sigmoid diverticulitis. It measures 2 x 1 cm No evidence of diffuse free intraperitoneal air. No evidence of significant free fluid. BONES/JOINTS: No acute fractures or other acute bony abnormality noted. SOFT TISSUES: No acute abnormality of the visualized soft tissues is seen. VASCULATURE: No evidence of abdominal aortic aneurysm. No evidence of periaortic hemorrhage. LYMPH NODES: No evidence of diffuse lymphadenopathy. IMPRESSION: - Findings suspicious for a small 2 x 1 cm abscess or fistulous tract in the left pelvis, abutting the sigmoid colon, and most likely the sequela of sigmoid diverticulitis. No evidence of diffuse free intraperitoneal air. - Moderate left hydronephrosis and perinephric stranding, stable in appearance compared to a CT done 8 days prior, cause not identified. Cannot entirely exclude a left renal infection. Recommend clinical correlation. - Left ureteral stent in place. - See above for remaining findings. 11/27/17 03:16 Case discussed with surgical rn documentation analyst, who is aware and agrees to evaluate pt. 11/27/17 03:[address] Santiago, who is aware and agrees with plan. Accepts pt in to her service. Pt will be admitted to [facility] for abdominal pain and possible diverticular abscess. Requests Dr. Coyle and Dr. Choe on consult 11/27/17 03:43 Reviewed EKG, NSR at 75 bpm. Sinus arrhythmia. LVH. Non-specific ST/T wave changes. - Lab Interpretations Lab Results: 11/26/17 23:25 11/26/17 23:25 Lab Results 11/26/17 23:25: WBC 8.0, RBC 4.15, Hgb 13.2 L, Hct 39.8 L, MCV 95.9, MCH 31.8, MCHC 33.2, RDW 17.5 H, Plt Count 325, MPV 11.3 H 11/26/17 23:25: Sodium 141, Potassium 3.9, Chloride 106, Carbon Dioxide 24, Anion Gap 15, BUN 11, Creatinine 1.3, Est GFR ( Amer) > 60, Est GFR (Non- Af Amer) > 60, Random Glucose 99, Calcium 10.2, Total Bilirubin 0.7, AST 50, ALT 20, Alkaline Phosphatase 77, Total Protein 8.4 H, Albumin 4.1, Globulin 4.3 , Albumin/Globulin Ratio 1.0 L, Lipase 132 I have reviewed the lab results: Yes - RAD Interpretation Radiology Orders: 11/26/17 22:59 CHEST PORTABLE [RAD] Stat 11/26/17 23:02 ABD & PELVIS W/O PO OR IV CONT [CT] Stat [employer] Operator: ED Physician, Radiologist - EKG Interpretation Interpreted by ED Physician: Yes Type: 12 lead EKG - Medication Orders Current Medication Orders: Sodium Chloride (Sodium Chloride 0.9%) 1,000 mls @ 100 mls/hr IV .Q10H STA Stop: 11/27/17 13:32 Last Admin: 11/27/17 04:26 Dose: 100 mls/hr eMAR Start Stop Document 11/27/17 04:26 STOCP (Rec: 11/27/17 04:27 STOCP [facility] [place]-[id number]) Intravenous Solution Start Date 11/27/17 Start Time 04:26 Discontinued Medications Famotidine (Pepcid) 20 mg IVP STAT STA Stop: 11/26/17 23:04 Last Admin: 11/26/17 23:33 Dose: 20 mg IVP Administration Document 11/26/17 23:33 JOL (Rec: 11/26/17 23:33 JOL [id number]) Charges for Administration # of IVP Administrations 1 Hydromorphone HCl (Dilaudid) 1 mg IVP STAT STA Stop: 11/26/17 23:03 Last Admin: 11/26/17 23:32 Dose: 1 mg MAR Pain Assessment Document 11/26/17 23:32 JOL (Rec: 11/26/17 23:33 JOL [id number]) Pain Reassessment Is this a pain reassessment? No Sleep Is patient sleeping during reassessment? No Presence of Pain Presence of Pain Yes Pain Scale Used Pain Scale Used Numeric Location Pain Location Body Site Abdomen Description Intensity of Pain at present 9 Acceptable Level of Pain 2 Pain Behavior Moaning Restlessness Facial Grimacing Aggravating Factors ADL's Changing Position Alleviating Factors/Management Medication Techniques IVP Administration Document 11/26/17 23:32 JOL (Rec: 11/26/17 23:33 JOL [id number]) Charges for Administration # of IVP Administrations 1 Hydromorphone HCl (Dilaudid) 1 mg IVP STAT STA Stop: 11/27/17 00:45 Last Admin: 11/27/17 00:51 Dose: 1 mg MAR Pain Assessment Document 11/27/17 00:51 JOL (Rec: 11/27/17 00:51 JOL [id number]) Pain Reassessment Is this a pain reassessment? No Sleep Is patient sleeping during reassessment? No Presence of Pain Presence of Pain Yes Pain Scale Used Pain Scale Used Numeric Location Pain Location Body Site Abdomen IVP Administration Document 11/27/17 00:51 JOL (Rec: 11/27/17 00:51 JOL [id number]) Charges for Administration # of IVP Administrations 1 Hydromorphone HCl (Dilaudid) 2 mg IVP STAT STA Stop: 11/27/17 03:12 Last Admin: 11/27/17 03:23 Dose: 2 mg MAR Pain Assessment Document 11/27/17 03:23 JOL (Rec: 11/27/17 03:23 JOL [id number]) Pain Reassessment Is this a pain reassessment? No Sleep Is patient sleeping during reassessment? No Presence of Pain Presence of Pain Yes Pain Scale Used Pain Scale Used Numeric Location Pain Location Body Site Abdomen IVP Administration Document 11/27/17 03:23 JOL (Rec: 11/27/17 03:23 JOL [id number]) Charges for Administration # of IVP Administrations 1 Sodium Chloride (Sodium Chloride 0.9%) 1,000 mls @ 999 mls/hr IV .Q1H1M STA Stop: 11/27/17 00:02 Last Admin: 11/26/17 23:32 Dose: 999 mls/hr eMAR Start Stop Document 11/26/17 23:32 JOL (Rec: 11/26/17 23:32 JOL [id number]) Intravenous Solution Start Date 11/26/17 Start Time 23:32 End Date 11/27/17 End time 00:33 Total Infusion Time 61 Piperacillin Sod/Tazobactam Sod (Zosyn 3.375 In Ns 100ml) 100 mls @ 200 mls/hr IV STAT STA PRN Reason: Protocol Stop: 11/27/17 03:44 Last Admin: 11/27/17 03:43 Dose: 200 mls/hr eMAR Start Stop Document 11/27/17 03:43 JOL (Rec: 11/27/17 03:43 JOL [id number]) Intravenous Solution Start Date 11/27/17 Start Time 03:43 End Date 11/27/17 End time 04:13 Total Infusion Time 30 Ondansetron HCl (Zofran Inj) 4 mg IVP ONCE ONE Stop: 11/26/17 23:03 Last Admin: 11/26/17 23:33 Dose: 4 mg IVP Administration Document 11/26/17 23:33 JOL (Rec: 11/26/17 23:33 JOL [id number]) Charges for Administration # of IVP Administrations 1 - Scribe Statement The provider has reviewed the documentation as recorded by the Scribe Stephanie Gerber All medical record entries made by the Scribe were at my direction and personally dictated by me. I have reviewed the chart and agree that the record accurately reflects my personal performance of the history, physical exam, medical decision making, and the department course for this patient. I have also personally directed, reviewed, and agree with the discharge instructions and disposition. Disposition/Present on Arrival - Present on Arrival Any Indicators Present on Arrival: No History of DVT/PE: No History of Uncontrolled Diabetes: No Urinary Catheter: No History of Decub. Ulcer: No History Surgical Site Infection Following: None - Disposition Have Diagnosis and Disposition been Completed?: Yes Diagnosis: Intractable abdominal pain Disposition: HOSPITALIZED Disposition Time: 03:36 Patient Plan: Observation Patient Problems: Current Active Problems Problem Status Onset Intractable abdominal pain Acute Condition: STABLE
[2017-11-26] MEDS ORDERED: Sodium Chloride 0.9% 1,000 ML IV STA (23:02)
[2017-11-26] MEDS ORDERED: HYDROmorphone 0.5 mg/0.5 ml ISec IVP STA (23:02)
[2017-11-26 23:57] LABS: HEMOGLOBIN 13.2 g/dL (14.0-18.0); MEAN CELL VOLUME 95.9 fl (80.0-105.0); MEAN CORPUSCULAR HEMOGLOBIN 31.8 pg (25.0-35.0); MEAN CORPUSCULAR HGB CONC 33.2 g/dl (31.0-37.0); MEAN PLATELET VOLUME 11.3 fl (7.0-11.0); RBC 4.15 10^6/uL (3.5-6.1); RED CELL DISTRIBUTION WIDTH 17.5 % (11.5-14.5)
[2017-11-27] MEDS ORDERED: HYDROmorphone 1 mg/ml ISec IVP STA (00:44)
[2017-11-27 00:49] LABS: ALBUMIN 4.1 g/dL (3.0-4.8); ALT/SGPT 20 U/L (7-56); AST/SGOT 50 U/L (17-59); BLOOD UREA NITROGEN 11 mg/dL (7-21); CALCIUM 10.2 mg/dL (8.4-10.5); GFR AFRICAN-AMERICAN > 60; GFR NON-AFRICAN AMERICAN > 60; LIPASE 132 U/L (23-300)
[2017-11-27] MEDS ORDERED: HYDROmorphone 2 mg/ml ISec IVP STA (03:11)
--- NOTE | 2017-11-27 03:12 | CT ---
EXAM: CT Abdomen and Pelvis Without Intravenous Contrast EXAM DATE/TIME: 11/26/2017 11:02 PM CLINICAL HISTORY: 37 years old, male; Pain; Abdominal pain TECHNIQUE: Axial computed tomography images of the abdomen and pelvis without intravenous contrast. All CT scans at this facility use one or more dose reduction techniques, viz.: automated exposure control; ma/kV adjustment per patient size (including targeted exams where dose is matched to indication; i.e. head); or iterative reconstruction technique. Coronal and sagittal reformatted images were created and reviewed. COMPARISON: Prior CT abdomen and pelvis of 2017-11-19 FINDINGS: LIMITATIONS: Artifact related to the patient's body habitus. LOWER THORAX: Heart appears enlarged for age. Small hiatal hernia. ABDOMEN: LIVER: No acute abnormality of the liver identified. GALLBLADDER AND BILE DUCTS: Cholecystectomy clips. PANCREAS: No CT evidence of acute pancreatitis. SPLEEN: No acute abnormality of the spleen identified. ADRENALS: No acute abnormality of the adrenal glands identified. KIDNEYS AND URETERS: Double-J left ureteral stent in place. This does not appear to be malpositioned. No calcifications seen along the course of the stent to suggest left ureteral stones. Moderate left hydronephrosis and left perinephric stranding, similar in appearance to the prior CT, cause not identified. 1.7 cm nonobstructing stone in the left kidney lower pole. Stable appearance of a 3 cm fluid density lesion in the left kidney upper pole, most likely a cyst. No evidence of significant left hydroureter. STOMACH AND BOWEL: See below. Colonic diverticulosis. Otherwise, no significant abnormality of the bowel is identified. No evidence of bowel obstruction. APPENDIX: Appendix is seen, and is within normal limits in appearance. PELVIS: BLADDER: No acute abnormality of the bladder identified. REPRODUCTIVE: No acute abnormality of the reproductive organs is seen. ABDOMEN and PELVIS: INTRAPERITONEAL SPACE: Best seen on image 145 series 3, there is a small collection of fluid and air in the left pelvis. This could represent a small abscess or a fistulous tract, given its appearance. It has a thick wall, and there is mild infiltration of the adjacent fat. It abuts the sigmoid colon, where there are sigmoid diverticula, and it could be the sequela of sigmoid diverticulitis. It measures 2 x 1 cm No evidence of diffuse free intraperitoneal air. No evidence of significant free fluid. BONES/JOINTS: No acute fractures or other acute bony abnormality noted. SOFT TISSUES: No acute abnormality of the visualized soft tissues is seen. VASCULATURE: No evidence of abdominal aortic aneurysm. No evidence of periaortic hemorrhage. LYMPH NODES: No evidence of diffuse lymphadenopathy. IMPRESSION: - Findings suspicious for a small 2 x 1 cm abscess or fistulous tract in the left pelvis, abutting the sigmoid colon, and most likely the sequela of sigmoid diverticulitis. No evidence of diffuse free intraperitoneal air. - Moderate left hydronephrosis and perinephric stranding, stable in appearance compared to a CT done 8 days prior, cause not identified. Cannot entirely exclude a left renal infection. Recommend clinical correlation. - Left ureteral stent in place. - See above for remaining findings.
[2017-11-27] MEDS ORDERED: HYDROmorphone 2 mg/ml ISec ONE (03:14)
[2017-11-27] MEDS ORDERED: Piperacillin/Tazobact 3.375 gm 100 ML IV STA (03:15)
[2017-11-27] MEDS ORDERED: Sodium Chloride 0.9% 1,000 ML IV STA (03:33)
[2017-11-27 03:49] LABS: URINE BILIRUBIN SMALL (NEGATIVE); URINE BLOOD LARGE (NEGATIVE); URINE GLUCOSE (UA) NEGATIVE (NEGATIVE); URINE LEUKOCYTE ESTERASE SMALL Leu/uL (NEGATIVE); URINE NITRATE NEGATIVE (NEGATIVE); URINE PROTEIN 30 mg/dL (<30 mg/dL); URINE UROBILINOGEN 0.2 E.U./dL (<1 E.U./dL)
[2017-11-27 04:23] LABS: URINE APPEARANCE SL CLOUDY (CLEAR); URINE COLOR YELLOW (YELLOW)
[2017-11-27 04:27] LABS: URINE BACTERIA RARE (NEG); URINE EPITHELIAL CELLS 0 - 2 /hpf (0-5)
--- NOTE | 2017-11-27 06:22 | CP.PCM.CON ---
History of Present Illness - History of Present Illness History of Present Illness: Surgery Consult: Dr. Coyle CC: stomach ache, n/v, diarrhea HPI: Patient is a 37 y/o male who presents complaining of stomach pains mainly on left side of abdomen that started Monday night. He states the pain is difficult to describe but just doesn't feel right. He states the pain is associated with multiple bouts of nonbloody nonbilious emesis. He reports 8 episodes of watery diarrhea since monday night. He has significant history of recent admission in which he underwent treatment for nephritis and diverticulitis and was discharge on 11/24. Patient was discharged with levaquin, flagyl and medications for pain and instructed to follow up with Dr. Love for scheduling of lithotripsy. Patient states he did fill his prescribed medications but thought they were a lot to take. He denies taking any of the medication/antibiotics on Monday because he didn't feel good. Patient complains of frequent urination and is mainly concerned about his urology follow up. PMH: diverticulitis, chronic pancreatitis, kidney stones and hydronephrosis s/p Left renal stent placement, HTN PSH: ureteral stent placement, cholecystectomy Social: prior ETOH abuse, denies illicit drugs Family hx: noncontributory Review of Systems - Constitutional Constitutional: Anorexia, Weight Loss. absent: Chills, Fever - EENT Eyes: Blurred Vision, Change in Vision Nose/Mouth/Throat: absent: Nasal Trauma, Nose Pain - Cardiovascular Cardiovascular: absent: Chest Pain, Dyspnea - Respiratory Respiratory: absent: Cough, Wheezing - Gastrointestinal Gastrointestinal: Abdominal Pain, Diarrhea, Nausea, Vomiting. absent: Hematochezia, Melena - Genitourinary Genitourinary: Urinary Frequency. absent: Hematuria - Musculoskeletal Musculoskeletal: absent: Back Pain, Numbness - Integumentary Integumentary: absent: Skin Pain, Wounds - Neurological Neurological: absent: Loss of Vision, Weakness - Psychiatric Psychiatric: absent: Behavioral Changes, Confusion - Endocrine Endocrine: absent: Polyphagia, Polyuria - Hematologic/Lymphatic Hematologic: absent: Easy Bleeding, Easy Bruising Past Patient History - Infectious Disease Hx of Infectious Diseases: None - Tetanus Immunizations Tetanus Immunization: Unknown - Past Medical History & Family History Past Medical History?: Yes - Past Social History Smoking Status: Current Some Days Smoker - CARDIAC Hx Congestive Heart Failure: Yes Hx Hypertension: Yes - PULMONARY Hx Respiratory Disorders: Yes Hx Sleep Apnea: Yes - NEUROLOGICAL Hx Neurological Disorder: No - HEENT Hx HEENT Problems: No - RENAL Hx Chronic Kidney Disease: Yes (hydronephrosis, L ureteral pigtail stent) Hx Kidney Stones: Yes Hx Renal Failure: Yes - ENDOCRINE/METABOLIC Hx Endocrine Disorders: No - HEMATOLOGICAL/ONCOLOGICAL Hx Blood Disorders: No - INTEGUMENTARY Hx Dermatological Problems: No - MUSCULOSKELETAL/RHEUMATOLOGICAL Hx Falls: No - GASTROINTESTINAL Hx Gastroesophageal Reflux: Yes - GENITOURINARY/GYNECOLOGICAL Hx Genitourinary Disorders: Yes (urinary retention) Hx Urinary Tract Infection: Yes - PSYCHIATRIC Hx Psychophysiologic Disorder: No Hx Substance Use: No - SURGICAL HISTORY Hx Cholecystectomy: Yes - ANESTHESIA Hx Anesthesia: Yes Hx Anesthesia Reactions: No Hx Malignant Hyperthermia: No Meds Allergies/Adverse Reactions: Allergies Allergy/AdvReac Type Severity Reaction Status Date / Time LUZ Inhibitors Allergy ANGIOEDEMA Verified 10/22/17 15:28 - Medications Medications: Current Medications Sodium Chloride (Sodium Chloride 0.9%) 1,000 mls @ 100 mls/hr IV .Q10H STA Stop: 11/27/17 13:32 Last Admin: 11/27/17 04:26 Dose: 100 mls/hr Physical Exam - Constitutional Appears: Non-toxic, No Acute Distress - Head Exam Head Exam: ATRAUMATIC, NORMOCEPHALIC - Eye Exam Eye Exam: EOMI, Normal appearance - ENT Exam ENT Exam: Mucous Membranes Moist - Respiratory Exam Respiratory Exam: NORMAL BREATHING PATTERN. absent: Respiratory Distress - Cardiovascular Exam Cardiovascular Exam: REGULAR RHYTHM. absent: Tachycardia - GI/Abdominal Exam GI & Abdominal Exam: Soft, Tenderness (mild left sided ). absent: Distended, Guarding, Rebound, Rigid - Extremities Exam Extremities exam: Negative for: calf tenderness - Neurological Exam Neurological exam: Alert, Oriented x3 - Psychiatric Exam Psychiatric exam: Normal Affect, Normal Mood - Skin Skin Exam: Dry, Normal Color, Warm Results - Vital Signs Recent Vital Signs: Last Vital Signs Temp 98.6 F 11/26/17 22:48 Pulse 78 11/27/17 00:48 Resp 18 11/27/17 04:25 BP 119/78 11/27/17 00:48 Pulse Ox 98 11/27/17 00:48 - Labs Result Diagrams: 11/26/17 23:25 11/26/17 23:25 - Imaging and Cardiology CT scan - abdomen Status: Image reviewed by me, Report reviewed by me Additional comment: patient with stable appearing diverticulitis as prior exam, will need PO contrast to fully evaluate bowel and if there is abscess/fistula Assessment & Plan - Assessment and Plan (Free Text) Assessment: 37 y/o male w/ abdominal pain, n/v Plan: -needs CT scan with contrast to evaluate bowel appropriately -if abscess is present and only 2x1cm can most likely manage conservative with antibiotics -symptoms could also be related to underlying left sided ureteral and kidney pathology -recommend continuation of abx -IVFs -repeat contrast study of abd/pelvis -urology follow up -pain control -nausea control -OOB -further recs per Dr. Leonides Heck PGY3 - Date & Time Date: 11/27/17 Time: 03:30
[2017-11-27] MEDS ORDERED: Barium Sulfate Susp 2.1% w/v, 2.0% w/w 450 mL Bottle PO ONE (07:31)
--- NOTE | 2017-11-27 09:12 | RAD ---
HISTORY: abdominal pain COMPARISON: 11/19/2017 FINDINGS: LUNGS: No active pulmonary disease. PLEURA: No significant pleural effusion identified, no pneumothorax apparent. CARDIOVASCULAR: Moderate cardiomegaly OSSEOUS STRUCTURES: No significant abnormalities. VISUALIZED UPPER ABDOMEN: Normal. OTHER FINDINGS: None. IMPRESSION: No active disease.
[2017-11-27] MEDS: Morphine 5 MG/ML SYRINGE IVP PRN ×4 (09:37→21:19)
--- NOTE | 2017-11-27 10:26 | CP.PCM.CON ---
History of Present Illness - History of Present Illness History of Present Illness: GI: Dr. Choe CC: Abd pain HPI: 37M w. multiple commorbidities presents w. LLQ abd pain. Pt was recently admitted for the same complaints 2/2 recurrent diverticulitis and was discharged on 11/24 w. instructions to take levaquin and flagyl for which he was not compliant. He states that his pain began to worsen on Monday night and was accompanied by multiple episodes of non-bilious emesis and diarrhea, non- bloody. He states that the pain is constant. He denies any alleviating or aggravating factors. Denies F/C. Of note, pt does have L side kidney stone / hydronephrosis, s/p ureteral stent and is supposed to schedule appointment w. Dr. Love to undergo lithotripsy. PMH: HTN, diverticulitis, chronic pancreatitis, kidney stones and hydronephrosis s/p Left renal stent placement PSH: ureteral stent placement, cholecystectomy Meds: MAR reviewed ALL: LUZ inhibitors Social: prior ETOH abuse, denies illicit drugs, + tobacco Family hx: noncontributory Review of Systems - Review of Systems All systems: reviewed and no additional remarkable complaints except (HPI) Past Patient History - Infectious Disease Hx of Infectious Diseases: None - Tetanus Immunizations Tetanus Immunization: Unknown - Past Medical History & Family History Past Medical History?: Yes - Past Social History Smoking Status: Current Some Days Smoker - CARDIAC Hx Congestive Heart Failure: Yes Hx Hypertension: Yes - PULMONARY Hx Respiratory Disorders: Yes Hx Sleep Apnea: Yes - NEUROLOGICAL Hx Neurological Disorder: No - HEENT Hx HEENT Problems: No - RENAL Hx Chronic Kidney Disease: Yes (hydronephrosis, L ureteral pigtail stent) Hx Kidney Stones: Yes Hx Renal Failure: Yes - ENDOCRINE/METABOLIC Hx Endocrine Disorders: No - HEMATOLOGICAL/ONCOLOGICAL Hx Blood Disorders: No - INTEGUMENTARY Hx Dermatological Problems: No - MUSCULOSKELETAL/RHEUMATOLOGICAL Hx Falls: No - GASTROINTESTINAL Hx Gastroesophageal Reflux: Yes - GENITOURINARY/GYNECOLOGICAL Hx Genitourinary Disorders: Yes (urinary retention) Hx Urinary Tract Infection: Yes - PSYCHIATRIC Hx Psychophysiologic Disorder: No Hx Substance Use: No - SURGICAL HISTORY Hx Cholecystectomy: Yes - ANESTHESIA Hx Anesthesia: Yes Hx Anesthesia Reactions: No Hx Malignant Hyperthermia: No Meds Allergies/Adverse Reactions: Allergies Allergy/AdvReac Type Severity Reaction Status Date / Time LUZ Inhibitors Allergy ANGIOEDEMA Verified 10/22/17 15:28 - Medications Medications: Current Medications Sodium Chloride (Sodium Chloride 0.9%) 1,000 mls @ 100 mls/hr IV .Q10H STA Stop: 11/27/17 13:32 Last Admin: 11/27/17 04:26 Dose: 100 mls/hr Morphine Sulfate (Morphine) 5 mg IVP Q4 PRN PRN Reason: Pain, moderate (4-7) Last Admin: 11/27/17 09:37 Dose: 5 mg Ondansetron HCl (Zofran Inj) 4 mg IVP Q4H PRN PRN Reason: Nausea/Vomiting Last Admin: 11/27/17 09:36 Dose: 4 mg Physical Exam - Constitutional Appears: Non-toxic, No Acute Distress - Head Exam Head Exam: ATRAUMATIC, NORMOCEPHALIC - Eye Exam Eye Exam: EOMI - ENT Exam ENT Exam: Mucous Membranes Moist - Neck Exam Neck exam: Positive for: Full Rom - Respiratory Exam Respiratory Exam: NORMAL BREATHING PATTERN. absent: Accessory Muscle Use, Respiratory Distress - Cardiovascular Exam Cardiovascular Exam: RRR - GI/Abdominal Exam GI & Abdominal Exam: Soft, Tenderness (LLQ). absent: Distended, Firm, Guarding , Rebound, Rigid - Extremities Exam Extremities exam: Negative for: calf tenderness, tenderness - Neurological Exam Neurological exam: Alert, Oriented x3 - Psychiatric Exam Psychiatric exam: Normal Mood - Skin Skin Exam: Dry, Warm Results - Vital Signs Recent Vital Signs: Last Vital Signs Temp 98 F 11/27/17 08:20 Pulse 70 11/27/17 08:20 Resp 18 11/27/17 08:20 BP 129/86 11/27/17 08:20 Pulse Ox 99 11/27/17 08:20 - Labs Result Diagrams: 11/26/17 23:25 11/26/17 23:25 - Imaging and Cardiology CT scan - abdomen Status: Image reviewed by me, Report reviewed by me Assessment & Plan - Assessment and Plan (Free Text) Assessment: 37M w. LLQ pain, r/o diverticulitis vs kidney stones -Repeat CT w. PO contrast -If repeat CT is more suggestive of diverticulitis, surgical intervention should be considered given multiple admissions in short time span and failure to improve w. conservative management -recommend bowel rest, IVF, and abx in interm -d/w attending Jess PGY3
--- NOTE | 2017-11-27 11:09 | CARD ---
APPROVED REPORT EKG Measurement Heart [id number] <Conclusion> Sinus rhythm. PACs, PJC. Poor R Progression V1-V3.
[2017-11-27] MEDS ORDERED: Cefepime 1gm in NS 100ml 1 GM/100 ML BAG IVPB SCH (12:30)
--- NOTE | 2017-11-27 13:30 | CT ---
PROCEDURE: CT Abdomen and Pelvis with contrast HISTORY: persistent abdominal pain, hx of diverticulitis COMPARISON: Earlier same day TECHNIQUE: Contrast dose: 150 cc of Omni 350 Radiation dose: Total exam DLP = 1692 mGy-cm. This CT exam was performed using one or more of the following dose reduction techniques: Automated exposure control, adjustment of the mA and/or kV according to patient size, and/or use of iterative reconstruction technique. FINDINGS: LOWER THORAX: Unremarkable. LIVER: Unremarkable. No gross lesion or ductal dilatation. GALLBLADDER AND BILE DUCTS: Gallbladder removed PANCREAS: Unremarkable. No gross lesion or ductal dilatation. SPLEEN: Unremarkable. ADRENALS: Unremarkable. No mass. KIDNEYS AND URETERS: There is a left-sided ureteral stent. There is some perinephric stranding on the left VASCULATURE: Unremarkable. No aortic aneurysm. BOWEL: There is diverticulosis of the sigmoid colon with mural thickening. There is no evidence of a discrete abscess. Findings are unchanged no evidence of a fistula APPENDIX: Normal appendix. PERITONEUM: Unremarkable. No free fluid. No free air. LYMPH NODES: Unremarkable. No enlarged lymph nodes. BLADDER: Unremarkable. REPRODUCTIVE: Unremarkable. BONES: No acute fracture. OTHER FINDINGS: None. IMPRESSION: No evidence of abscess or fistula. Diverticulosis of the sigmoid colon.
[2017-11-27] MEDS ORDERED: metroNIDAZOLE IV 500 mg/100 ml 500 MG/100 ML BAG IVPB SCH (14:00)
[2017-11-27] MEDS: Piperacillin/Tazobact 3.375 gm 100 ML IVPB SCH (17:05)
--- NOTE | 2017-11-27 20:43 | CP.PCM.PN ---
Subjective - Date & Time of Evaluation Date of Evaluation: 11/27/17 Time of Evaluation: 20:41 - Subjective Subjective: S:Requests Ambien for sleep. Has no other acute symptoms now. Medical record was reviewed. O: Last Vital Signs 3 Temp 98.2 F 11/27/17 16:00 Pulse 73 11/27/17 16:00 Resp 18 11/27/17 16:00 BP 138/95 H 11/27/17 16:00 Pulse Ox 97 11/27/17 16:00 Awake,alert,not in distress. Obese person. LUNGS:Normal breathing pattern. A:Adjustment insomnia. P: Ambien 10 mg PO x 1. Objective - Vital Signs/Intake and Output Vital Signs (last 24 hours): Temp Pulse Resp BP Pulse Ox 98.2 F 73 18 138/95 H 97 11/27/17 16:00 11/27/17 16:00 11/27/17 16:00 11/27/17 16:00 11/27/17 16:00 - Medications Medications: Current Medications Famotidine (Pepcid) 20 mg IVP BID [facility] Last Admin: 11/27/17 17:05 Dose: 20 mg Piperacillin Sod/Tazobactam Sod (Zosyn 3.375 In Ns 100ml) 100 mls @ 200 mls/hr IVPB Q6 ELSIE PRN Reason: Protocol Stop: 12/04/17 18:01 Last Admin: 11/27/17 17:05 Dose: 200 mls/hr Morphine Sulfate (Morphine) 5 mg IVP Q4 PRN PRN Reason: Pain, moderate (4-7) Last Admin: 11/27/17 17:30 Dose: 5 mg Ondansetron HCl (Zofran Inj) 4 mg IVP Q4H PRN PRN Reason: Nausea/Vomiting Last Admin: 11/27/17 09:36 Dose: 4 mg
--- NOTE | 2017-11-27 22:39 | HP ---
HISTORY OF PRESENT ILLNESS: Patient is 37 years old who came to Emergency Room because of increasing abdominal pain. Patient was just discharged on Monday. He said he made turkey sandwich at home, was doing well. He started to have abdominal pain yesterday morning, but got worse last night, so he came back to Emergency Room. Denies any nausea, does not have appetite. Has left upper quadrant and lower quadrant discomfort. No hemoptysis, no hematemesis. PAST MEDICAL HISTORY: Significant for: 1. Hypertension. 2. Nonischemic cardiomyopathy. 3. Recurrent pancreatitis. 4. . 5. History of nephrolithiasis, status post stent placement by Dr. Love. Because of obesity, patient is not a candidate for external lithotripsy. After his abdominal pain settle down, plan will be made for internal lithotripsy. ALLERGIES: HE IS ALLERGIC TO LUZ INHIBITORS. MEDICATION AT HOME: He is on spironolactone, Dilaudid, Lasix 40 mg twice a day, famotidine 20 b.i.d., Coreg 12.5 b.i.d. and Pancrease. SOCIAL HISTORY: He is single, has a , currently on temporary disability. He used to be heavy drinker, now currently he only smokes. PHYSICAL EXAMINATION: GENERAL: He is awake, alert, oriented, communicative. VITAL SIGNS: He is afebrile, pulse 70, respirations 18, blood pressure 129/86. LUNGS: Bilateral fair airflow. No rhonchi or crackles. HEART: S1, S2 audible. ABDOMEN: Soft, nontender. No rebound, no guarding. NEUROLOGIC: Patient is awake, alert, oriented, able to communicate. LABORATORY DATA: WBC is 8.0, hemoglobin 13.2, hematocrit 39.8, platelet of 325. Chemistry: Sodium 141, potassium 3.9, chloride 106, CO2 of 24, BUN 11, creatinine 1.3, blood sugar is 99. LFTs within normal limits. Urine shows large blood and small leukocyte. He had CT of the abdomen and pelvis without contrast done that shows small 2 x 1 cm abscess or fistulous track in the left pelvis, sitting on sigmoid colon, most likely, secondary to sigmoid diverticulitis. No evidence of diffuse free air. Moderate left hydronephrosis and perinephric stranding. ASSESSMENT: 1. Recurrent sigmoid diverticulitis. 2. Pelvic abscess. 3. Hypertension. 4. Cardiomyopathy. 5. History of chronic pancreatitis. PLAN: Patient will be started on IV fluid, IV antibiotics, surgical consult has been requested, request for ID evaluation and we will monitor his CBC and CMP in a.m. Sammy Santiago MD
[2017-11-28] MEDS: Piperacillin/Tazobact 3.375 gm 100 ML IVPB SCH ×5 (00:19→23:48)
[2017-11-28] MEDS: Morphine 5 MG/ML SYRINGE IVP PRN ×6 (01:21→21:54)
[2017-11-28 07:41] LABS: BASO # 0.03 K/mm3 (0.0-2.0); BASO % 0.4 % (0.0-3.0); EOS # 0.2 (0.0-0.7); EOS % 2.5 % (1.5-5.0); GRAN # 3.61 (1.4-6.5); GRAN % 53.8 % (50.0-68.0); LYMPH % 30.3 % (22.0-35.0); MEAN CELL VOLUME 97.2 fl (80.0-105.0); MEAN CORPUSCULAR HEMOGLOBIN 30.8 pg (25.0-35.0); MEAN CORPUSCULAR HGB CONC 31.7 g/dl (31.0-37.0); MEAN PLATELET VOLUME 10.8 fl (7.0-11.0); MONO # 0.9 (0.1-0.6); RBC 3.9 10^6/uL (3.5-6.1); RED CELL DISTRIBUTION WIDTH 17.5 % (11.5-14.5); WHITE BLOOD COUNT 6.7 10^3/ul (4.5-11.0)
[2017-11-28 08:12] LABS: ALBUMIN 3.6 g/dL (3.0-4.8); ALT/SGPT 26 U/L (7-56); AST/SGOT 21 U/L (17-59); BLOOD UREA NITROGEN 10 mg/dL (7-21); CALCIUM 9.4 mg/dL (8.4-10.5); GFR AFRICAN-AMERICAN > 60; GFR NON-AFRICAN AMERICAN 56
--- NOTE | 2017-11-28 09:06 | CP.PCM.PN ---
Subjective - Date & Time of Evaluation Date of Evaluation: 11/28/17 Time of Evaluation: 09:07 - Subjective Subjective: Surgery progress note for Dr. Coyle Patient seen and examined at bedside. Patient states that his current medication regimen is not controlling his pain effectively. Other than that, patient denies any new complaints. Objective - Vital Signs/Intake and Output Vital Signs (last 24 hours): Temp Pulse Resp BP Pulse Ox 97 F L 66 16 140/93 H 97 11/27/17 21:00 11/27/17 21:00 11/27/17 21:00 11/27/17 21:00 11/27/17 16:00 Intake and Output: 11/28/17 11/28/17 06:59 18:59 Output Total 200 Balance -200 - Medications Medications: Current Medications Famotidine (Pepcid) 20 mg IVP BID [facility] Last Admin: 11/27/17 17:05 Dose: 20 mg Piperacillin Sod/Tazobactam Sod (Zosyn 3.375 In Ns 100ml) 100 mls @ 200 mls/hr IVPB Q6 ELSIE PRN Reason: Protocol Stop: 12/04/17 18:01 Last Admin: 11/28/17 05:22 Dose: 200 mls/hr Vancomycin HCl (Vancomycin 1gm) 1 gm in 250 mls @ 167 mls/hr IVPB Q12H ELSIE PRN Reason: Protocol Morphine Sulfate (Morphine) 5 mg IVP Q4 PRN PRN Reason: Pain, moderate (4-7) Last Admin: 11/28/17 05:23 Dose: 5 mg Ondansetron HCl (Zofran Inj) 4 mg IVP Q4H PRN PRN Reason: Nausea/Vomiting Last Admin: 11/28/17 01:21 Dose: 4 mg - Labs Labs: 11/28/17 07:00 11/28/17 07:00 - Constitutional Appears: Well - Head Exam Head Exam: ATRAUMATIC, NORMAL INSPECTION, NORMOCEPHALIC - Eye Exam Eye Exam: EOMI, Normal appearance, PERRL Pupil Exam: NORMAL ACCOMODATION, PERRL - ENT Exam ENT Exam: Mucous Membranes Moist, Normal Exam - Neck Exam Neck Exam: Full ROM, Normal Inspection. absent: Lymphadenopathy - Respiratory Exam Respiratory Exam: Clear to Ausculation Bilateral, NORMAL BREATHING PATTERN - Cardiovascular Exam Cardiovascular Exam: REGULAR RHYTHM, +S1, +S2. absent: Murmur - GI/Abdominal Exam GI & Abdominal Exam: Soft, Normal Bowel Sounds. absent: Tenderness - Extremities Exam Extremities Exam: Full ROM, Normal Capillary Refill, Normal Inspection. absent : Joint Swelling, Pedal Edema - Back Exam Back Exam: NORMAL INSPECTION - Neurological Exam Neurological Exam: Alert, Awake, CN II-XII Intact, Normal Gait, Oriented x3 - Psychiatric Exam Psychiatric exam: Normal Affect, Normal Mood - Skin Skin Exam: Dry, Intact, Normal Color, Warm Assessment and Plan - Assessment and Plan (Free Text) Assessment: 37M w. LLQ pain, r/o diverticulitis vs kidney stones Plan: -Repeat CT w. PO contrast showed no evidence of diverticulitis -Pain and nausea management prn per primary -At this time, no further surgical intervention is necessary, we will sign off for now -d/w attending
--- NOTE | 2017-11-28 13:01 | CP.PCM.CON ---
History of Present Illness - History of Present Illness History of Present Illness: 37 year old male with PMH of left sided pyelonephritis with obstructing left ureteral calculus S/P cystoscopy, placement of left pigtail stent , morbid obesity with BMI 49, HTN, alcoholic cardiomyopathy, history of pancreatitis, history of kidney stones was recently [place] [facility] [place] of sigmoid diverticulitis. He was managed conservatively and was given PO antibiotics to take at home on discharge. He was only able to take a day's worth of PO antibiotics when the pain became worse in his left side, with nausea but no vomiting, no diarrhea, no melena or hematochezia. He also denies fever or chills , no headache or dizziness, no chest pain, no SOB, no cough or rhinorrhea, no dysuria. CT A/P was repeated and it shows possible smalll diverticular abscess. Infectious Diseases consult is requested to further evaluate and manage. Review of Systems - Review of Systems All systems: reviewed and no additional remarkable complaints except (as per HPI ) Past Patient History - Infectious Disease Hx of Infectious Diseases: None - Tetanus Immunizations Tetanus Immunization: Unknown - Past Medical History & Family History Past Medical History?: Yes - Past Social History Smoking Status: Current Some Days Smoker - CARDIAC Hx Congestive Heart Failure: Yes Hx Hypertension: Yes - PULMONARY Hx Respiratory Disorders: Yes Hx Sleep Apnea: Yes - NEUROLOGICAL Hx Neurological Disorder: No - HEENT Hx HEENT Problems: No - RENAL Hx Chronic Kidney Disease: Yes (hydronephrosis, L ureteral pigtail stent) Hx Kidney Stones: Yes Hx Renal Failure: Yes - ENDOCRINE/METABOLIC Hx Endocrine Disorders: No - HEMATOLOGICAL/ONCOLOGICAL Hx Blood Disorders: No - INTEGUMENTARY Hx Dermatological Problems: No - MUSCULOSKELETAL/RHEUMATOLOGICAL Hx Falls: No - GASTROINTESTINAL Hx Gastroesophageal Reflux: Yes - GENITOURINARY/GYNECOLOGICAL Hx Genitourinary Disorders: Yes (urinary retention) Hx Urinary Tract Infection: Yes - PSYCHIATRIC Hx Psychophysiologic Disorder: No Hx Substance Use: No - SURGICAL HISTORY Hx Cholecystectomy: Yes - ANESTHESIA Hx Anesthesia: Yes Hx Anesthesia Reactions: No Hx Malignant Hyperthermia: No Meds Allergies/Adverse Reactions: Allergies Allergy/AdvReac Type Severity Reaction Status Date / Time LUZ Inhibitors Allergy ANGIOEDEMA Verified 10/22/17 15:28 - Medications Medications: Current Medications Famotidine (Pepcid) 20 mg IVP BID ELSIE Sodium Chloride (Sodium Chloride 0.9%) 1,000 mls @ 100 mls/hr IV .Q10H STA Stop: 11/27/17 13:32 Last Admin: 11/27/17 04:26 Dose: 100 mls/hr Cefepime HCl (Maxipime 1gm) 1 gm in 100 mls @ 100 mls/hr IVPB Q12 ELSIE PRN Reason: Protocol Metronidazole (Flagyl) 500 mg in 100 mls @ 100 mls/hr IVPB Q8 ELSIE PRN Reason: Protocol Morphine Sulfate (Morphine) 5 mg IVP Q4 PRN PRN Reason: Pain, moderate (4-7) Last Admin: 11/27/17 09:37 Dose: 5 mg Ondansetron HCl (Zofran Inj) 4 mg IVP Q4H PRN PRN Reason: Nausea/Vomiting Last Admin: 11/27/17 09:36 Dose: 4 mg Physical Exam - Constitutional Appears: Chronically Ill - Head Exam Head Exam: NORMAL INSPECTION - ENT Exam ENT Exam: Mucous Membranes Moist - Neck Exam Neck exam: Negative for: Meningismus - Respiratory Exam Respiratory Exam: Decreased Breath Sounds - Cardiovascular Exam Cardiovascular Exam: +S1, +S2 - GI/Abdominal Exam GI & Abdominal Exam: Soft. absent: Tenderness Results - Vital Signs Recent Vital Signs: Last Vital Signs Temp 98 F 11/27/17 08:20 Pulse 70 11/27/17 08:20 Resp 18 11/27/17 08:20 BP 129/86 11/27/17 08:20 Pulse Ox 99 11/27/17 08:20 - Labs Result Diagrams: 11/28/17 07:00 11/28/17 07:00 Assessment & Plan - Assessment and Plan (Free Text) Plan: Assessment Acute sigmoid diverticulitis with possible diverticular abscess history of severe sepsis with probable left sided pyelonephritis with obstructing left ureteral calculus S/P cystoscopy, placement of left pigtail stent morbid obesity with BMI 49 HTN alcoholic cardiomyopathy history of pancreatitis history of kidney stones Plan started patient on Zosyn; follow up blood cx follow up recommendations of Surgery will monitor clinically
--- NOTE | 2017-11-28 16:30 | CP.PCM.CON ---
<Cherry Alba - Last Filed: 11/28/17 16:52> History of Present Illness - History of Present Illness History of Present Illness: GI Consult: Dr. Choe HPI: 37 M with a PMHx of diverticulitis, chronic pancreatitis, alcoholic cardiomyopathy, kidney stones and hydronephrosis s/p Left renal stent placement , and HTN with complaints of lift sided abdominal pain that began Monday night. Pt states he was recently discharged after being treated for sigmoid diverticulitis. Patient was discharged with levaquin, flagyl and medications for pain and instructed to follow up with Dr. Love for scheduling of lithotripsy. Patient states he did fill his prescribed medications but not completely compliant. He denied taking any of the medication/antibiotics on Monday because he didn't feel well. Pt has complaints of increased frequency of urination. Pt states that his abdominal pain became worse in his left side, with nausea but no vomiting, no diarrhea, no melena or hematochezia. He also denies fever or chills, no headache or dizziness, no chest pain, no SOB, no cough or rhinorrhea, no dysuria. CT A/P was repeated and it shows possible smalll diverticular abscess. PMH: diverticulitis, chronic pancreatitis, kidney stones and hydronephrosis s/p Left renal stent placement, HTN PSH: ureteral stent placement, cholecystectomy Social: prior ETOH abuse, denies illicit drugs Family hx: noncontributory Allergy: Kimani inhibitors Meds: MAR Reviewed Review of Systems - Review of Systems Review of Systems: as per HPI otherwise negative Past Patient History - Infectious Disease Hx of Infectious Diseases: None - Tetanus Immunizations Tetanus Immunization: Unknown - Past Medical History & Family History Past Medical History?: Yes - Past Social History Smoking Status: Current Some Days Smoker - CARDIAC Hx Congestive Heart Failure: Yes Hx Hypertension: Yes - PULMONARY Hx Respiratory Disorders: Yes Hx Sleep Apnea: Yes - NEUROLOGICAL Hx Neurological Disorder: No - HEENT Hx HEENT Problems: No - RENAL Hx Chronic Kidney Disease: Yes (hydronephrosis, L ureteral pigtail stent) Hx Kidney Stones: Yes Hx Renal Failure: Yes - ENDOCRINE/METABOLIC Hx Endocrine Disorders: No - HEMATOLOGICAL/ONCOLOGICAL Hx Blood Disorders: No - INTEGUMENTARY Hx Dermatological Problems: No - MUSCULOSKELETAL/RHEUMATOLOGICAL Hx Falls: No - GASTROINTESTINAL Hx Gastroesophageal Reflux: Yes - GENITOURINARY/GYNECOLOGICAL Hx Genitourinary Disorders: Yes (urinary retention) Hx Urinary Tract Infection: Yes - PSYCHIATRIC Hx Psychophysiologic Disorder: No Hx Substance Use: No - SURGICAL HISTORY Hx Cholecystectomy: Yes - ANESTHESIA Hx Anesthesia: Yes Hx Anesthesia Reactions: No Hx Malignant Hyperthermia: No Meds Allergies/Adverse Reactions: Allergies Allergy/AdvReac Type Severity Reaction Status Date / Time KIMANI Inhibitors Allergy ANGIOEDEMA Verified 10/22/17 15:28 - Medications Medications: Current Medications Famotidine (Pepcid) 20 mg IVP BID ELSIE Last Admin: 11/28/17 09:45 Dose: 20 mg Piperacillin Sod/Tazobactam Sod (Zosyn 3.375 In Ns 100ml) 100 mls @ 200 mls/hr IVPB Q6 ELSIE PRN Reason: Protocol Stop: 12/04/17 18:01 Last Admin: 11/28/17 12:58 Dose: 200 mls/hr Vancomycin HCl (Vancomycin 1gm) 1 gm in 250 mls @ 167 mls/hr IVPB Q12H ELSIE PRN Reason: Protocol Morphine Sulfate (Morphine) 5 mg IVP Q4 PRN PRN Reason: Pain, moderate (4-7) Last Admin: 11/28/17 13:42 Dose: 5 mg Ondansetron HCl (Zofran Inj) 4 mg IVP Q4H PRN PRN Reason: Nausea/Vomiting Last Admin: 11/28/17 01:21 Dose: 4 mg Physical Exam - Constitutional Appears: No Acute Distress - Head Exam Head Exam: ATRAUMATIC, NORMAL INSPECTION, NORMOCEPHALIC - Eye Exam Eye Exam: EOMI, Normal appearance, PERRL Pupil Exam: NORMAL ACCOMODATION, PERRL - ENT Exam ENT Exam: Mucous Membranes Moist, Normal Exam - Respiratory Exam Respiratory Exam: Clear to Auscultation Bilateral, NORMAL BREATHING PATTERN - Cardiovascular Exam Cardiovascular Exam: REGULAR RHYTHM, +S1, +S2 - GI/Abdominal Exam GI & Abdominal Exam: Normal Bowel Sounds, Soft, Tenderness Additional comments: LLQ Tenderness - Extremities Exam Extremities exam: Positive for: normal inspection - Neurological Exam Neurological exam: Alert, CN II-XII Intact, Oriented x3, Reflexes Normal - Psychiatric Exam Psychiatric exam: Normal Affect, Normal Mood - Skin Skin Exam: Dry, Intact, Normal Color, Warm Results - Vital Signs Recent Vital Signs: Last Vital Signs Temp 97 F L 11/27/17 21:00 Pulse 66 11/27/17 21:00 Resp 16 11/27/17 21:00 BP 140/93 H 11/27/17 21:00 Pulse Ox 97 11/27/17 16:00 - Labs Result Diagrams: 11/28/17 07:00 11/28/17 07:00 Labs: Laboratory Results - last 24 hr 11/28/17 11/28/17 07:00 07:00 WBC 6.7 RBC 3.90 Hgb 12.0 L Hct 37.9 L MCV 97.2 MCH 30.8 MCHC 31.7 RDW 17.5 H Plt Count 278 MPV 10.8 Gran % 53.8 Lymph % (Auto) 30.3 Mclennan % (Auto) 13.0 H Eos % (Auto) 2.5 Baso % (Auto) 0.4 Gran # 3.61 Lymph # (Auto) 2.0 Mclennan # (Auto) 0.9 H Eos # (Auto) 0.2 Baso # (Auto) 0.03 Sodium 140 Potassium 3.8 Chloride 106 Carbon Dioxide 22 Anion Gap 16 BUN 10 Creatinine 1.4 Est GFR ( Amer) > 60 Est GFR (Non-Af Amer) 56 Random Glucose 77 Calcium 9.4 Total Bilirubin 0.6 AST 21 ALT 26 Alkaline Phosphatase 58 Total Protein 7.2 Albumin 3.6 Globulin 3.7 Albumin/Globulin Ratio 1.0 L Assessment & Plan - Assessment and Plan (Free Text) Assessment: 37 M with a PMHx of diverticulitis, chronic pancreatitis, alcoholic cardiomyopathy, kidney stones and hydronephrosis s/p Left renal stent placement , and HTN with complaints of lift sided abdominal pain that began Monday night after recent discharge for treatment of sigmoid diverticulitis. Pt admitted with acute sigmoid diverticulitis with possible diverticular abscess. Pt has history of chronic pancreattiis on pancreatic enzymes. Continue Abx as per ID. No surgical intervention at this time. Advance diet as tolerated. Pain control. Pt likely to have repeat colonoscopy in 6-8 weeks. <Souleymane Choe V - Last Filed: 11/29/17 01:05> Meds - Medications Medications: Current Medications Famotidine (Pepcid) 20 mg IVP BID ELSIE Last Admin: 11/28/17 17:58 Dose: 20 mg Piperacillin Sod/Tazobactam Sod (Zosyn 3.375 In Ns 100ml) 100 mls @ 200 mls/hr IVPB Q6 ELSIE PRN Reason: Protocol Stop: 12/04/17 18:01 Last Admin: 11/28/17 23:48 Dose: 200 mls/hr Vancomycin HCl (Vancomycin 1gm) 1 gm in 250 mls @ 167 mls/hr IVPB Q12H ELSIE PRN Reason: Protocol Last Admin: 11/28/17 21:58 Dose: 167 mls/hr Morphine Sulfate (Morphine) 5 mg IVP Q4 PRN PRN Reason: Pain, moderate (4-7) Last Admin: 11/28/17 21:54 Dose: 5 mg Ondansetron HCl (Zofran Inj) 4 mg IVP Q4H PRN PRN Reason: Nausea/Vomiting Last Admin: 11/28/17 21:55 Dose: 4 mg Results - Vital Signs Recent Vital Signs: Last Vital Signs Temp 97 F L 11/27/17 21:00 Pulse 66 11/27/17 21:00 Resp 16 11/27/17 21:00 BP 140/93 H 11/27/17 21:00 Pulse Ox 97 11/27/17 16:00 - Labs Result Diagrams: 11/28/17 07:00 11/28/17 07:00 Labs: Laboratory Results - last 24 hr 11/28/17 11/28/17 07:00 07:00 WBC 6.7 RBC 3.90 Hgb 12.0 L Hct 37.9 L MCV 97.2 MCH 30.8 MCHC 31.7 RDW 17.5 H Plt Count 278 MPV 10.8 Gran % 53.8 Lymph % (Auto) 30.3 Mclennan % (Auto) 13.0 H Eos % (Auto) 2.5 Baso % (Auto) 0.4 Gran # 3.61 Lymph # (Auto) 2.0 Mclennan # (Auto) 0.9 H Eos # (Auto) 0.2 Baso # (Auto) 0.03 Sodium 140 Potassium 3.8 Chloride 106 Carbon Dioxide 22 Anion Gap 16 BUN 10 Creatinine 1.4 Est GFR ( Amer) > 60 Est GFR (Non-Af Amer) 56 Random Glucose 77 Calcium 9.4 Total Bilirubin 0.6 AST 21 ALT 26 Alkaline Phosphatase 58 Total Protein 7.2 Albumin 3.6 Globulin 3.7 Albumin/Globulin Ratio 1.0 L Attending/Attestation - Attestation Notes (Text): This is an addendum to GI consult report dictated by the Supervisor Front.The patient was seen and examined earlier.Medical records ,lab studies,imaging were reviewed . Last 24hrs events reviewed. Agreed with the above treatment plan as outlined in Supervisor Front 's notes the with the addition of the following feels slightly better CT scan reviewed earlier it did not reveal any fistula or abscess. Noticed a mild pericolonic streaking Urology to follow up Elective colonoscopy We start the patient on clear liquid diet now 11/29/17 01:01
[2017-11-28] MEDS: Vancomycin 1gm in NS 250ml 1 GM/250 ML BAG IVPB SCH (21:58)
--- NOTE | 2017-11-28 23:32 | PN ---
DATE: SUBJECTIVE: The patient is 37 years old, seen and examined. Still has left flank pain. No nausea or vomiting. Stated he does not have appetite. PHYSICAL EXAMINATION: VITAL SIGNS: He is afebrile, pulse 66, respirations 16, blood pressure 140/93. LUNGS: Bilateral fair airflow. No rhonchi or crackles. HEART: S1 and S2 audible. ABDOMEN: Soft, obese. He has some left upper quadrant discomfort. NEUROLOGIC: He is awake and alert, able to communicate. LABORATORY DATA: WBC 6.9, hemoglobin 12, hematocrit 37, platelets 278. Chemistry: Sodium 140, potassium 3.8, chloride 106, CO2 of 22, BUN 10, creatinine 1.4, blood sugar of 77. Blood cultures and urine cultures are negative. ASSESSMENT: 1. Questionable diverticulitis. 2. Pyelonephritis. 3. Hypertension. 4. Hyperlipidemia. 5. Nonischemic cardiomyopathy. 6. History of recurrent hepatitis and recurrent pancreatitis. PLAN: We will start the patient on clear liquid. He is currently on antibiotics, we will continue that. Awaiting Urology consult. Continue on IV fluid. Currently he is on Zosyn and vancomycin. We will start him on clear liquid and advance it as tolerated. Surgical input noted and appreciated. There is no plan for any surgical intervention. We will follow up this patient in a.m. Sammy Santiago MD
[2017-11-29] MEDS: Morphine 5 MG/ML SYRINGE IVP PRN ×6 (01:54→21:02)
[2017-11-29] MEDS: Piperacillin/Tazobact 3.375 gm 100 ML IVPB SCH ×4 (05:55→23:00)
--- NOTE | 2017-11-29 08:39 | PN ---
DATE: 11/28/2017 SUBJECTIVE: Patient once again is admitted with left-sided pain. He just left the hospital a few days ago and returns again complaining of persistent left-sided pain, nausea, vomiting and diarrhea. He has an extensive past medical history of chronic pancreatitis kidney stones, perforated diverticulitis. Patient has been seen by Surgery who has signed off on him at this point has not needing surgery. Patient is a noncompliant, morbidly obese, diabetic. He has been told multiple times that there is nothing we can do regarding his kidney stone as patient needs a shockwave lithotripsy, however, he is 390 pounds, which is over the weight limit of the table. This has been explained to the patient ad nauseam multiple times. Patient has been referred to another urologist who specializes in removal of upper tracts stones. Patient refuses to go and continues to leave the hospital just to be readmitted immediately with the same complaint. Patient does not have pyelonephritis. He does not have a fever. His urine is not purulent. He does not have hydronephrosis. On the CT scan with contrast, he has an upper pole cyst as there is some fullness. This is likely reflux from his stent. Patient's white blood cell count is 6.7. He is afebrile. Temperature of 97, blood pressure 140/93, pulse of 66. His urine culture from 11/27 showed no growth. His blood cultures also showed no growth after 24 hours. IMPRESSION AND PLAN: Patient does not have pyelonephritis, he does not have hydronephrosis. He does have a small about 6 to 7 mm stone in his lower pole of his left kidney. Urologically, there is nothing I can offer this patient other than to change his stent. We can try a smaller stent and possibly that would be less uncomfortable for him. That is not an emergent procedure and can be set up electively. If patient continues to refuse to see another urologist to have the stone removed, that is the only care that I could offer him unless patient is going for lose weight. He is at extremely high risk for any surgical procedure given his morbid obesity, poorly controlled diabetes and cardiac issues with recurrent episodes of congestive heart failure. Alternatively, a nephrostomy tube can be placed and the stent can be removed if this pain is felt to be from the stent. However, I think, that is unlikely. Patient is not a good candidate for percutaneous nephrolithotomy either as he would need to be in prone position for an extended time. The best plan would be if patient would lose weight and get medically cleared, patient can then have a shockwave lithotripsy. The table limit for weight is 370 pounds. Patient is currently 20 pounds heavier than that. This has been discussed with the patient multiple times; however, again, he is extremely noncompliant and continues to present back to the hospital where nothing further can be offered to him from a urologic standpoint. There was a question of perforated diverticulitis. However, on the repeat CT scan with intravenous and oral contrast, no collection was seen. I will leave the decision on that to General Surgery and GI whether anything further needs to be done from that standpoint. Kamari Love MD
[2017-11-29] MEDS: Vancomycin 1gm in NS 250ml 1 GM/250 ML BAG IVPB SCH ×2 (10:16→21:03)
--- NOTE | 2017-11-29 11:15 | CP.PCM.PN ---
Subjective - Date & Time of Evaluation Date of Evaluation: 11/29/17 Time of Evaluation: 11:11 - Subjective Subjective: Surgery progress note for Dr. Coyle Patient seen and examined at bedside. Patient once again stated that his current medication regimen is not controlling his pain effectively, and is asking for Dilaudid. Other than that, patient denies any new complaints. Objective - Vital Signs/Intake and Output Vital Signs (last 24 hours): Temp Pulse Resp BP Pulse Ox 97.6 F 63 20 135/90 97 11/29/17 00:00 11/29/17 00:00 11/29/17 00:00 11/29/17 00:00 11/29/17 00:00 Intake and Output: 11/29/17 11/29/17 06:59 18:59 Output Total 100 Balance -100 - Medications Medications: Current Medications Famotidine (Pepcid) 20 mg IVP BID ELSIE Last Admin: 11/29/17 10:16 Dose: 20 mg Piperacillin Sod/Tazobactam Sod (Zosyn 3.375 In Ns 100ml) 100 mls @ 200 mls/hr IVPB Q6 ELSIE PRN Reason: Protocol Stop: 12/04/17 18:01 Last Admin: 11/29/17 05:55 Dose: 200 mls/hr Vancomycin HCl (Vancomycin 1gm) 1 gm in 250 mls @ 167 mls/hr IVPB Q12H ELSIE PRN Reason: Protocol Last Admin: 11/29/17 10:16 Dose: 167 mls/hr Morphine Sulfate (Morphine) 5 mg IVP Q3H PRN PRN Reason: Pain, moderate (4-7) Last Admin: 11/29/17 10:16 Dose: 5 mg Ondansetron HCl (Zofran Inj) 4 mg IVP Q4H PRN PRN Reason: Nausea/Vomiting Last Admin: 11/28/17 21:55 Dose: 4 mg - Labs Labs: 11/28/17 07:00 11/28/17 07:00 - Constitutional Appears: Well - Head Exam Head Exam: ATRAUMATIC, NORMAL INSPECTION, NORMOCEPHALIC - Eye Exam Eye Exam: EOMI, Normal appearance, PERRL Pupil Exam: NORMAL ACCOMODATION, PERRL - ENT Exam ENT Exam: Mucous Membranes Moist, Normal Exam - Neck Exam Neck Exam: Full ROM, Normal Inspection. absent: Lymphadenopathy - Respiratory Exam Respiratory Exam: Clear to Ausculation Bilateral, NORMAL BREATHING PATTERN - Cardiovascular Exam Cardiovascular Exam: REGULAR RHYTHM, +S1, +S2. absent: Murmur - GI/Abdominal Exam GI & Abdominal Exam: Soft, Normal Bowel Sounds. absent: Tenderness - Extremities Exam Extremities Exam: Full ROM, Normal Capillary Refill, Normal Inspection. absent : Joint Swelling, Pedal Edema - Back Exam Back Exam: NORMAL INSPECTION - Neurological Exam Neurological Exam: Alert, Awake, CN II-XII Intact, Normal Gait, Oriented x3 - Psychiatric Exam Psychiatric exam: Normal Affect, Normal Mood - Skin Skin Exam: Dry, Intact, Normal Color, Warm Assessment and Plan - Assessment and Plan (Free Text) Assessment: 37M with past medical history of many episodes of diverticulitis presented for LLQ pain. Diverticulitis was ruled out, other differential was kidney stones. Plan: -Repeat CT w. PO contrast showed no evidence of diverticulitis -Pain regimen changed to morphine 5 q3 from morphine 5 q4 -Rest of pain and nausea management prn per primary -At this time, no further surgical intervention is necessary, we will sign off for now -d/w attending
--- NOTE | 2017-11-29 16:36 | CP.PCM.PN ---
<Cherry Alba - Last Filed: 11/29/17 16:33> Subjective - Date & Time of Evaluation Date of Evaluation: 11/29/17 Time of Evaluation: 10:45 - Subjective Subjective: GI Progress Note Dr. Choe Patient seen and examined at bedside. Pt states he is feeling better than yesterday. Pt pain is under better control. Pt not hungry, no bm as of yet. Pt denied fever, chills, sob, chest pains, nausea, vomiting, diarrhea, or constipation. Pt still has complaints of left flank pain however is better than yesterday. Objective - Vital Signs/Intake and Output Vital Signs (last 24 hours): Temp Pulse Resp BP Pulse Ox 99.2 F 59 L 19 135/83 97 11/29/17 07:30 11/29/17 07:30 11/29/17 07:30 11/29/17 07:30 11/29/17 07:30 Intake and Output: 11/29/17 11/29/17 06:59 18:59 Intake Total 720 Output Total 500 Balance 220 - Medications Medications: Current Medications Famotidine (Pepcid) 20 mg IVP BID [facility] Last Admin: 11/29/17 10:16 Dose: 20 mg Piperacillin Sod/Tazobactam Sod (Zosyn 3.375 In Ns 100ml) 100 mls @ 200 mls/hr IVPB Q6 [facility] PRN Reason: Protocol Stop: 12/04/17 18:01 Last Admin: 11/29/17 12:18 Dose: 200 mls/hr Vancomycin HCl (Vancomycin 1gm) 1 gm in 250 mls @ 167 mls/hr IVPB Q12H [facility] PRN Reason: Protocol Last Admin: 11/29/17 10:16 Dose: 167 mls/hr Morphine Sulfate (Morphine) 5 mg IVP Q4H PRN PRN Reason: Pain, moderate (4-7) Ondansetron HCl (Zofran Inj) 4 mg IVP Q4H PRN PRN Reason: Nausea/Vomiting Last Admin: 11/29/17 12:18 Dose: 4 mg - Labs Labs: 11/28/17 07:00 11/28/17 07:00 - Constitutional Appears: No Acute Distress - Head Exam Head Exam: ATRAUMATIC, NORMAL INSPECTION, NORMOCEPHALIC - Eye Exam Eye Exam: EOMI, Normal appearance, PERRL Pupil Exam: NORMAL ACCOMODATION, PERRL - ENT Exam ENT Exam: Mucous Membranes Moist, Normal Exam - Respiratory Exam Respiratory Exam: Clear to Ausculation Bilateral, NORMAL BREATHING PATTERN - Cardiovascular Exam Cardiovascular Exam: REGULAR RHYTHM, +S1, +S2. absent: Murmur - GI/Abdominal Exam GI & Abdominal Exam: Soft, Tenderness (LLQ), Normal Bowel Sounds - Neurological Exam Neurological Exam: Alert, Awake, CN II-XII Intact, Oriented x3 - Psychiatric Exam Psychiatric exam: Normal Affect, Normal Mood - Skin Skin Exam: Dry, Intact, Normal Color, Warm Assessment and Plan - Assessment and Plan (Free Text) Assessment: 37 M with a PMHx of diverticulitis, chronic pancreatitis, alcoholic cardiomyopathy, kidney stones and hydronephrosis s/p Left renal stent placement , and HTN with complaints of lift sided abdominal pain that began Monday night after recent discharge for treatment of sigmoid diverticulitis. Pt admitted with acute sigmoid diverticulitis with possible diverticular abscess. Pt has history of chronic pancreatitis on pancreatic enzymes. Repeat CT abdomen did not demonstrate fistula or abscess. Continue Abx as per ID. No surgical intervention at this time. Advance CLD diet as tolerated. Pain control. Pt likely to have repeat colonoscopy in 6-[address] Choe <Souleymane Choe V - Last Filed: 11/30/17 00:01> Objective - Vital Signs/Intake and Output Vital Signs (last 24 hours): Temp Pulse Resp BP Pulse Ox 98.9 F 60 20 112/73 96 11/29/17 18:58 11/29/17 18:58 11/29/17 18:58 11/29/17 18:58 11/29/17 18:58 Intake and Output: 11/29/17 11/30/17 18:59 06:59 Intake Total 720 Output Total 500 Balance 220 - Medications Medications: Current Medications Famotidine (Pepcid) 20 mg IVP BID [facility] Last Admin: 11/29/17 18:05 Dose: 20 mg Piperacillin Sod/Tazobactam Sod (Zosyn 3.375 In Ns 100ml) 100 mls @ 200 mls/hr IVPB Q6 [facility] PRN Reason: Protocol Stop: 12/04/17 18:01 Last Admin: 11/29/17 23:00 Dose: 200 mls/hr Vancomycin HCl (Vancomycin 1gm) 1 gm in 250 mls @ 167 mls/hr IVPB Q12H [facility] PRN Reason: Protocol Last Admin: 11/29/17 21:03 Dose: 167 mls/hr Morphine Sulfate (Morphine) 5 mg IVP Q4H PRN PRN Reason: Pain, moderate (4-7) Last Admin: 11/29/17 21:02 Dose: 5 mg Ondansetron HCl (Zofran Inj) 4 mg IVP Q4H PRN PRN Reason: Nausea/Vomiting Last Admin: 11/29/17 12:18 Dose: 4 mg Zolpidem Tartrate (Ambien) 5 mg PO HS PRN; Protocol PRN Reason: Insomnia Last Admin: 11/29/17 22:59 Dose: 5 mg - Labs Labs: 11/28/17 07:00 11/28/17 07:00 Attending/Attestation - Attestation I have personally seen and examined this patient.: Yes I have fully participated in the care of the patient.: Yes I have reviewed all pertinent clinical information, including history, physical exam and plan: Yes Notes (Text): This is an addendum to GI progress report dictated by the Correctional Treatment Specialist.The patient was seen and examined earlier. Medical records, lab studies, imagings were reviewed. Last 24 hours events reviewed. Agreed with the above treatment plan as outlined in Correctional Treatment Specialist 's notes the with the addition of the following 11/30/17 00:00
--- NOTE | 2017-11-29 18:09 | CP.PCM.PN ---
Subjective - Date & Time of Evaluation Date of Evaluation: 11/29/17 Time of Evaluation: 12:00 - Subjective Subjective: Patient is starting to feel better, no fevers. Objective - Vital Signs/Intake and Output Vital Signs (last 24 hours): Temp Pulse Resp BP Pulse Ox 99.2 F 59 L 19 135/83 97 11/29/17 07:30 11/29/17 07:30 11/29/17 07:30 11/29/17 07:30 11/29/17 07:30 Intake and Output: 11/29/17 11/29/17 06:59 18:59 Intake Total 720 Output Total 500 Balance 220 - Medications Medications: Current Medications Famotidine (Pepcid) 20 mg IVP BID [facility] Last Admin: 11/29/17 10:16 Dose: 20 mg Piperacillin Sod/Tazobactam Sod (Zosyn 3.375 In Ns 100ml) 100 mls @ 200 mls/hr IVPB Q6 [facility] PRN Reason: Protocol Stop: 12/04/17 18:01 Last Admin: 11/29/17 12:18 Dose: 200 mls/hr Vancomycin HCl (Vancomycin 1gm) 1 gm in 250 mls @ 167 mls/hr IVPB Q12H [facility] PRN Reason: Protocol Last Admin: 11/29/17 10:16 Dose: 167 mls/hr Morphine Sulfate (Morphine) 5 mg IVP Q4H PRN PRN Reason: Pain, moderate (4-7) Last Admin: 11/29/17 16:48 Dose: 5 mg Ondansetron HCl (Zofran Inj) 4 mg IVP Q4H PRN PRN Reason: Nausea/Vomiting Last Admin: 11/29/17 12:18 Dose: 4 mg - Labs Labs: 11/28/17 07:00 11/28/17 07:00 - Constitutional Appears: Non-toxic, Chronically Ill - Head Exam Head Exam: NORMAL INSPECTION - ENT Exam ENT Exam: Mucous Membranes Moist - Neck Exam Neck Exam: absent: Meningismus - Respiratory Exam Respiratory Exam: Decreased Breath Sounds - Cardiovascular Exam Cardiovascular Exam: +S1, +S2 - GI/Abdominal Exam GI & Abdominal Exam: Soft. absent: Tenderness Assessment and Plan - Assessment and Plan (Free Text) Plan: Assessment Acute sigmoid diverticulitis with possible diverticular abscess, slowly improving history of severe sepsis with probable left sided pyelonephritis with obstructing left ureteral calculus S/P cystoscopy, placement of left pigtail stent morbid obesity with BMI 49 HTN alcoholic cardiomyopathy history of pancreatitis history of kidney stones Plan continue Zosyn day 2 follow up recommendations of Surgery will monitor clinically
--- NOTE | 2017-11-29 20:46 | PN ---
DATE: SUBJECTIVE: Patient is 37 years old, seen and examined. He states his left flank pain is somewhat better. Tolerating liquid diet. No fever or chills. No nausea or vomiting. PHYSICAL EXAMINATION: VITAL SIGNS: Today, he is afebrile. Pulse 63, respirations 20, blood pressure 135/90. LUNGS: Bilateral good airflow. No rhonchi or crackle. HEART: S1, S2 audible. ABDOMEN: Soft, obese, nontender. No rebound. No guarding. NEUROLOGIC: Patient is awake and alert, able to communicate. LABORATORY EXAMINATION: Blood cultures and urine cultures are negative. ASSESSMENT: 1. Left flank pain, probably secondary to stent. 2. Diverticulitis, questionable perforation, but repeat CT scan is negative for any leakage. 3. Morbid obesity. 4. History of recurrent pancreatitis. 5. Hypertension. 6. Nonischemic cardiomyopathy. PLAN: At this point, we will advance patient's diet and if he tolerates, we can switch to p.o. antibiotic if needed and make a discharge plan in a.m. Sammy Santiago MD
[2017-11-30] MEDS: Morphine 5 MG/ML SYRINGE IVP PRN ×6 (00:50→21:56)
[2017-11-30] MEDS: Piperacillin/Tazobact 3.375 gm 100 ML IVPB SCH ×3 (05:00→17:48)
--- NOTE | 2017-11-30 08:02 | CON ---
DATE: 11/29/2017 GENITOURINARY CONSULTATION CHIEF COMPLAINT: Abdominal pain. HISTORY OF PRESENT ILLNESS: This is a 37-year-old male who is well known to me. Patient has been seen multiple times in the past for abdominal pain. Patient has been evaluated in the past. He does have a left lower pole renal calculus. In the past, patient had urosepsis when his stent was removed. Patient has multiple medical issues including heart failure, perforated diverticulitis, chronic pancreatitis, hypertension. Given patient's other medical conditions and his morbid obesity, plan urologically was to leave the stent in place as patient got septic in the past when the stent was removed. Patient was referred to a specialist in dealing with upper tract stones as patient is felt not to be a good surgical candidate. Given patient's weight and other medical issues, it was felt that a percutaneous nephrolithotomy would be dangerous as patient needs to be in the prone position for that procedure and the patient exceeds the weight limit for the shockwave lithotripsy table. I have explained this multiple times to the patient. Patient was recently discharged and came right back to the hospital complaining of abdominal pain again. He reports he did have some vomiting. He denies any fever or chills. PAST MEDICAL HISTORY: Significant for hypertension, cardiomyopathy, chronic pancreatitis, nephrolithiasis, perforated diverticulitis. MEDICATIONS: Include morphine, Pepcid, vancomycin, Zofran, Zosyn. ALLERGIES: ALLERGIC TO LUZ INHIBITORS. SOCIAL HISTORY: Positive for smoking. Currently no EtOH use, but was a heavy drinker. FAMILY HISTORY: Noncontributory for this admission. REVIEW OF SYSTEMS: Positive for abdominal pain, left-sided; positive for dysuria and urinary frequency; has left flank pain when voiding; positive for shortness of breath. Positive for difficulty ambulating. Other systems are negative. PHYSICAL EXAMINATION: GENERAL: Patient is awake and alert. He is sitting up in bed. He is in no acute distress. He is afebrile. VITAL SIGNS: Temperature was 97.6, pulse of 63, BP 135/90, respirations were 20. NECK: Supple. There is no adenopathy. CHEST: Reveals normal inspiratory effort. CARDIAC: Showed a positive S1, S2. There is some mild peripheral edema noted. ABDOMEN: Abdomen is obese, soft, nontender, nondistended. There is no hepatosplenomegaly. There is no costovertebral angle tenderness. GENITOURINARY: Phallus is normal. Scrotum is normal. Testes are bilaterally descended, nontender, no masses. Epididymis are normal. EXTREMITIES: There is mild edema. There is no cyanosis noted. LABORATORY EXAMINATION: WBC count was 6.7, hemoglobin of 12. GFR greater than 60. Urinalysis showed 5 to 10 rbc's, 2 to 5 wbc's, negative for nitrites. On radiologic exam, patient had a CT scan of the abdomen and pelvis with contrast on 11/27, which showed a left-sided ureteral stent. There is some perinephric stranding. There is no mention of hydronephrosis. Bladder unremarkable. There was no evidence of abscess or fistula. There was diverticulosis of the sigmoid colon. IMPRESSION AND PLAN: A 37-year-old male readmitted for abdominal pain. Urologically, some of the pain may be from the indwelling stent. Patient has frequency and overactive bladder with the stent in place. It is normal to have some flank pain when voiding due to some reflux of urine and I have discussed this with the patient. Patient reports he has lost significant amount of weight and he is down to 390 pounds. The weight limit of the new shockwave lithotripsy table is 370 pounds and I informed the patient that if he continues to lose weight, we can then plan on a shockwave lithotripsy of the stone and then removing his stent. Patient is interested in having this done. He did have a recent perforation of diverticulitis, which is being managed medically and he does have chronic pancreatitis. From a Urology standpoint, I think the plan for now would be change the patient's stent as it has been indwelling since August. We can try placing a smaller gauge stent and this may help improve some of the pain. Unfortunately, all the stents will be somewhat irritating to the bladder and he will continue to have some urinary frequency and pain from the stent. If patient continues to lose weight, we can then consider a shockwave lithotripsy. If the patient cannot get under the required weight, then again my recommendation would be to either leave the stent indwelling and change it every 6 months or patient should follow up with the suggested urologists who have the proper equipment to remove the stone ureteroscopically. I have discussed all this with the patient. He agreed to have the stent changed and we can schedule this electively in the near future. Kamari Love MD
[2017-11-30] MEDS: Vancomycin 1gm in NS 250ml 1 GM/250 ML BAG IVPB SCH ×3 (08:57→21:55)
[2017-11-30] MEDS: Amylase/Lipase/Protease 5,000 Units ECC PO SCH ×2 (12:10→17:42)
--- NOTE | 2017-11-30 14:11 | CP.PCM.PN ---
<Cherry Alba - Last Filed: 11/30/17 14:08> Subjective - Date & Time of Evaluation Date of Evaluation: 11/30/17 Time of Evaluation: 11:00 - Subjective Subjective: GI Progress Note Dr. Choe Patient seen and examined at bedside. Pt states he continue to feel better. Pt pain is present however under better control. He is willing to try diet ordered for today.No bm as of yet. Pt denied fever, chills, sob, chest pains, nausea, vomiting, diarrhea, or constipation. Pt still has complaints of left flank pain however is better than yesterday. Objective - Vital Signs/Intake and Output Vital Signs (last 24 hours): Temp Pulse Resp BP Pulse Ox 97.8 F 58 L 20 128/76 95 11/30/17 07:30 11/30/17 07:30 11/30/17 07:30 11/30/17 07:30 11/30/17 07:30 Intake and Output: 11/30/17 11/30/17 06:59 18:59 Intake Total 1220 Output Total 1200 Balance 20 - Medications Medications: Current Medications Amylase (Pancrease 90258 U-5000 U-24615 U) 20,000 unit PO ACTID ON LICENSE OF [facility] Last Admin: 11/30/17 12:10 Dose: 20,000 unit Famotidine (Pepcid) 20 mg IVP BID ON [facility] OF [facility] Last Admin: 11/30/17 09:01 Dose: 20 mg Piperacillin Sod/Tazobactam Sod (Zosyn 3.375 In Ns 100ml) 100 mls @ 200 mls/hr IVPB Q6 [facility] PRN Reason: Protocol Stop: 12/04/17 18:01 Last Admin: 11/30/17 12:12 Dose: 200 mls/hr Vancomycin HCl (Vancomycin 1gm) 1 gm in 250 mls @ 167 mls/hr IVPB Q12H [facility] PRN Reason: Protocol Last Admin: 11/30/17 08:58 Dose: 167 mls/hr Morphine Sulfate (Morphine) 5 mg IVP Q4H PRN PRN Reason: Pain, moderate (4-7) Last Admin: 11/30/17 13:08 Dose: 5 mg Ondansetron HCl (Zofran Inj) 4 mg IVP Q4H PRN PRN Reason: Nausea/Vomiting Last Admin: 11/30/17 05:05 Dose: 4 mg Zolpidem Tartrate (Ambien) 5 mg PO HS PRN; Protocol PRN Reason: Insomnia Last Admin: 11/29/17 22:59 Dose: 5 mg - Labs Labs: 11/28/17 07:00 11/28/17 07:00 - Constitutional Appears: No Acute Distress - Head Exam Head Exam: ATRAUMATIC, NORMAL INSPECTION, NORMOCEPHALIC - Eye Exam Eye Exam: EOMI, Normal appearance, PERRL Pupil Exam: NORMAL ACCOMODATION, PERRL - ENT Exam ENT Exam: Mucous Membranes Moist, Normal Exam - Respiratory Exam Respiratory Exam: Clear to Ausculation Bilateral, NORMAL BREATHING PATTERN - Cardiovascular Exam Cardiovascular Exam: REGULAR RHYTHM, +S1, +S2. absent: Murmur - GI/Abdominal Exam GI & Abdominal Exam: Soft, Normal Bowel Sounds. absent: Tenderness - Neurological Exam Neurological Exam: Alert, Awake, CN II-XII Intact, Normal Gait, Oriented x3 - Psychiatric Exam Psychiatric exam: Normal Affect, Normal Mood - Skin Skin Exam: Dry, Intact, Normal Color, Warm Assessment and Plan - Assessment and Plan (Free Text) Assessment: 37 M with a PMHx of diverticulitis, chronic pancreatitis, alcoholic cardiomyopathy, kidney stones and hydronephrosis s/p Left renal stent placement , and HTN with complaints of lift sided abdominal pain that began Monday night after recent discharge for treatment of sigmoid diverticulitis. Pt admitted with acute sigmoid diverticulitis with possible diverticular abscess. Pt has history of chronic pancreatitis on pancreatic enzymes 20 mg with meals. Repeat CT abdomen did not demonstrate fistula or abscess. Continue Abx as per ID. No surgical intervention at this time. Advance HHD diet. Pain control. Pt likely to have repeat colonoscopy in 6-[address] Choe <Souleymane Choe V - Last Filed: 11/30/17 23:17> Objective - Vital Signs/Intake and Output Vital Signs (last 24 hours): Temp Pulse Resp BP Pulse Ox 98.1 F 61 17 139/83 96 11/30/17 16:00 11/30/17 16:00 11/30/17 16:00 11/30/17 16:00 11/30/17 16:00 Intake and Output: 11/30/17 12/01/17 18:59 06:59 Intake Total 720 Output Total 200 Balance 520 - Medications Medications: Current Medications Amylase (Pancrease 26437 U-5000 U-64929 U) 20,000 unit PO ACTID ON LICENSE OF [facility] Last Admin: 11/30/17 17:42 Dose: Not Given Famotidine (Pepcid) 20 mg IVP BID ON LICENSE OF [facility] Last Admin: 11/30/17 17:48 Dose: 20 mg Piperacillin Sod/Tazobactam Sod (Zosyn 3.375 In Ns 100ml) 100 mls @ 200 mls/hr IVPB Q6 [facility] PRN Reason: Protocol Stop: 12/04/17 18:01 Last Admin: 11/30/17 17:48 Dose: 200 mls/hr Vancomycin HCl (Vancomycin 1gm) 1 gm in 250 mls @ 167 mls/hr IVPB Q12H [facility] PRN Reason: Protocol Last Admin: 11/30/17 21:55 Dose: 167 mls/hr Morphine Sulfate (Morphine) 5 mg IVP Q4H PRN PRN Reason: Pain, moderate (4-7) Last Admin: 11/30/17 21:56 Dose: 5 mg Ondansetron HCl (Zofran Inj) 4 mg IVP Q4H PRN PRN Reason: Nausea/Vomiting Last Admin: 11/30/17 17:48 Dose: 4 mg Zolpidem Tartrate (Ambien) 5 mg PO HS PRN; Protocol PRN Reason: Insomnia Last Admin: 11/30/17 21:55 Dose: 5 mg - Labs Labs: 11/28/17 07:00 11/28/17 07:00 Attending/Attestation - Attestation I have personally seen and examined this patient.: Yes I have fully participated in the care of the patient.: Yes I have reviewed all pertinent clinical information, including history, physical exam and plan: Yes Notes (Text): This is an addendum to GI consult report dictated by the Social Media Sr Strategy Manager.The patient was seen and examined earlier. Medical records, lab studies, imagings were reviewed. Last 24 hours events reviewed. Agreed with the above treatment plan as outlined in Social Media Sr Strategy Manager 's notes the with the addition of the following 11/30/17 23:17
--- NOTE | 2017-11-30 14:23 | CP.PCM.PN ---
Subjective - Date & Time of Evaluation Date of Evaluation: 11/30/17 Time of Evaluation: 10:45 - Subjective Subjective: Now with upgraded diet, abdominal pain is better, no fevers. Objective - Vital Signs/Intake and Output Vital Signs (last 24 hours): Temp Pulse Resp BP Pulse Ox 99.2 F 59 L 19 135/83 97 11/29/17 07:30 11/29/17 07:30 11/29/17 07:30 11/29/17 07:30 11/29/17 07:30 Intake and Output: 11/29/17 11/29/17 06:59 18:59 Intake Total 720 Output Total 500 Balance 220 - Medications Medications: Current Medications Famotidine (Pepcid) 20 mg IVP BID [facility] Last Admin: 11/29/17 10:16 Dose: 20 mg Piperacillin Sod/Tazobactam Sod (Zosyn 3.375 In Ns 100ml) 100 mls @ 200 mls/hr IVPB Q6 [facility] PRN Reason: Protocol Stop: 12/04/17 18:01 Last Admin: 11/29/17 12:18 Dose: 200 mls/hr Vancomycin HCl (Vancomycin 1gm) 1 gm in 250 mls @ 167 mls/hr IVPB Q12H [facility] PRN Reason: Protocol Last Admin: 11/29/17 10:16 Dose: 167 mls/hr Morphine Sulfate (Morphine) 5 mg IVP Q4H PRN PRN Reason: Pain, moderate (4-7) Last Admin: 11/29/17 16:48 Dose: 5 mg Ondansetron HCl (Zofran Inj) 4 mg IVP Q4H PRN PRN Reason: Nausea/Vomiting Last Admin: 11/29/17 12:18 Dose: 4 mg - Labs Labs: 11/28/17 07:00 11/28/17 07:00 - Constitutional Appears: Non-toxic, Chronically Ill - Head Exam Head Exam: NORMAL INSPECTION - ENT Exam ENT Exam: Mucous Membranes Moist - Neck Exam Neck Exam: absent: Meningismus - Respiratory Exam Respiratory Exam: Decreased Breath Sounds - Cardiovascular Exam Cardiovascular Exam: +S1, +S2 - GI/Abdominal Exam GI & Abdominal Exam: Soft. absent: Tenderness Assessment and Plan - Assessment and Plan (Free Text) Plan: Assessment Acute sigmoid diverticulitis with possible diverticular abscess, slowly improving history of severe sepsis with probable left sided pyelonephritis with obstructing left ureteral calculus S/P cystoscopy, placement of left pigtail stent morbid obesity with BMI 49 HTN alcoholic cardiomyopathy history of pancreatitis history of kidney stones Plan continue Zosyn day 3 follow up further recommendations of Surgery will continue to monitor clinically
[2017-12-01] MEDS: Piperacillin/Tazobact 3.375 gm 100 ML IVPB SCH ×3 (00:12→12:22)
[2017-12-01] MEDS: Morphine 5 MG/ML SYRINGE IVP PRN ×3 (01:44→10:23)
[2017-12-01 02:07] VITALS: RESP 20
[2017-12-01] MEDS: Amylase/Lipase/Protease 5,000 Units ECC PO SCH ×2 (08:12→12:11)
[2017-12-01 09:07] VITALS: BP 136/82; PULSE 63; TEMP 98.3; O2SAT 99
[2017-12-01] MEDS: Vancomycin 1gm in NS 250ml 1 GM/250 ML BAG IVPB SCH (10:22)
--- NOTE | 2017-12-01 11:38 | DS ---
HISTORY OF PRESENT ILLNESS: Patient is 37 years old, seen and examined, started on liquid diet. He seems to be tolerating. Will be advancing to puree diet. Complains of left flank discomfort, but no nausea or vomiting. PHYSICAL EXAMINATION: VITAL SIGNS: Patient is afebrile. Pulse , respirations 20, blood pressure 128/76. LUNGS: Bilateral good airflow. No rhonchi or crackle. HEART: S1, S2 audible. ABDOMEN: Soft, obese, nontender. No rebound. No guarding. NEUROLOGIC: Patient is awake, alert, oriented, communicative. LABORATORY DATA: There is no new lab available today. ASSESSMENT AND PLAN 1. Sigmoid diverticulitis. 2. Left flank pain, probably secondary to stent. 3. Hypertension. 4. Nonischemic cardiomyopathy. 5. Hyperlipidemia. 6. Recurrent pancreatitis. So, plan is the patient's diet is being advanced. We will discuss with ID for duration of antibiotics. If we can switch to p.o., he will be discharged either tonight or tomorrow morning according to ID recommendation. Sammy Santiago MD
--- NOTE | 2017-12-01 17:08 | CP.PCM.PN ---
Subjective - Date & Time of Evaluation Date of Evaluation: 12/01/17 Time of Evaluation: 12:05 - Subjective Subjective: Abdominal pain is better although there is still some soreness, eating semisolid foods, no fevers, no diarrhea. Objective - Vital Signs/Intake and Output Vital Signs (last 24 hours): Temp Pulse Resp BP Pulse Ox 97.8 F 58 L 20 128/76 95 11/30/17 07:30 11/30/17 07:30 11/30/17 07:30 11/30/17 07:30 11/30/17 07:30 Intake and Output: 11/30/17 11/30/17 06:59 18:59 Intake Total 1220 720 Output Total 1200 200 Balance 20 520 - Medications Medications: Current Medications Amylase (Pancrease 28226 U-5000 U-82933 U) 20,000 unit PO ACTID [facility] Last Admin: 11/30/17 12:10 Dose: 20,000 unit Famotidine (Pepcid) 20 mg IVP BID [facility] Last Admin: 11/30/17 09:01 Dose: 20 mg Piperacillin Sod/Tazobactam Sod (Zosyn 3.375 In Ns 100ml) 100 mls @ 200 mls/hr IVPB Q6 [facility] PRN Reason: Protocol Stop: 12/04/17 18:01 Last Admin: 11/30/17 12:12 Dose: 200 mls/hr Vancomycin HCl (Vancomycin 1gm) 1 gm in 250 mls @ 167 mls/hr IVPB Q12H [facility] PRN Reason: Protocol Last Admin: 11/30/17 08:58 Dose: 167 mls/hr Morphine Sulfate (Morphine) 5 mg IVP Q4H PRN PRN Reason: Pain, moderate (4-7) Last Admin: 11/30/17 13:08 Dose: 5 mg Ondansetron HCl (Zofran Inj) 4 mg IVP Q4H PRN PRN Reason: Nausea/Vomiting Last Admin: 11/30/17 05:05 Dose: 4 mg Zolpidem Tartrate (Ambien) 5 mg PO HS PRN; Protocol PRN Reason: Insomnia Last Admin: 11/29/17 22:59 Dose: 5 mg - Labs Labs: 11/28/17 07:00 11/28/17 07:00 - Constitutional Appears: Non-toxic, Chronically Ill - Head Exam Head Exam: NORMAL INSPECTION - ENT Exam ENT Exam: Mucous Membranes Moist - Neck Exam Neck Exam: absent: Meningismus - Respiratory Exam Respiratory Exam: Decreased Breath Sounds - Cardiovascular Exam Cardiovascular Exam: +S1, +S2 - GI/Abdominal Exam GI & Abdominal Exam: Soft. absent: Tenderness Assessment and Plan - Assessment and Plan (Free Text) Plan: Assessment Acute sigmoid diverticulitis with possible diverticular abscess, slowly improving history of severe sepsis with probable left sided pyelonephritis with obstructing left ureteral calculus S/P cystoscopy, placement of left pigtail stent morbid obesity with BMI 49 HTN alcoholic cardiomyopathy history of pancreatitis history of kidney stones Plan continue Zosyn day 4 follow up further recommendations of Surgery
--- NOTE | 2017-12-01 19:44 | CP.PCM.PN ---
Subjective - Date & Time of Evaluation Date of Evaluation: 12/01/17 Time of Evaluation: 12:15 - Subjective Subjective: Seen and examined at the bedside earlier today, chart review. Patient still has left-sided abdominal discomfort but no acute distress. Tolerating some oral intake, he is on pured diet. No nausea or vomiting. No reports of diarrhea or overt GI bleed. Objective - Vital Signs/Intake and Output Vital Signs (last 24 hours): Temp Pulse Resp BP Pulse Ox 98.3 F 63 20 136/82 99 12/01/17 07:00 12/01/17 07:00 12/01/17 07:00 12/01/17 07:00 12/01/17 07:00 Intake and Output: 12/01/17 12/02/17 18:59 06:59 Intake Total 480 Output Total 1800 Balance -1320 - Labs Labs: 11/28/17 07:00 11/28/17 07:00 - Constitutional Appears: No Acute Distress - Eye Exam Eye Exam: Normal appearance. absent: Scleral icterus - ENT Exam ENT Exam: Mucous Membranes Moist - Respiratory Exam Respiratory Exam: NORMAL BREATHING PATTERN. absent: Respiratory Distress - Cardiovascular Exam Cardiovascular Exam: +S1, +S2 - GI/Abdominal Exam GI & Abdominal Exam: Soft, Tenderness (mild tenderness, no rebound or guarding, abd obese), Normal Bowel Sounds. absent: Guarding, Rebound - Extremities Exam Extremities Exam: absent: Calf Tenderness, Pedal Edema - Neurological Exam Neurological Exam: Alert, Awake, Oriented x3 - Skin Skin Exam: Dry, Warm Assessment and Plan - Assessment and Plan (Free Text) Assessment: Assessment: Acute sigmoid diverticulitis,? Diverticular abscess, status post repeat CT scan which did not demonstrate fistula or abscess Chronic pancreatitis Morbid obesity Kidney stones with hydronephrosis status post left renal stent Hypertension History of acute renal failure Plan: Continue pancreatic enzymes prior to meals Continue antibiotics as per ID Diet as tolerated, on Tavares A, discussed with patient on discharge, recommend low residual diet followed by surgery,No surgical intervention at this time Consider colonoscopy in 6-8 weekscomment discussed with patient to follow up in office in 2 weeks. Plan for dc home today Discussed with Dr. Choe
--- NOTE | 2017-12-02 07:22 | DS ---
HISTORY OF PRESENT ILLNESS: The patient is 37 years old, seen and examined. Patient was initially admitted with left flank pain. CT scan without contrast shows questionable perforation, but he ended up having CT scan with contrast that showed no perforation or leakage; however, he has some perinephric stranding. His blood culture and urine cultures were done, they were unremarkable. The patient has been on IV antibiotics, doing well. Eating and tolerating. PHYSICAL EXAMINATION VITAL SIGNS: He is afebrile, pulse 63, respirations 20, blood pressure 136/82. LUNGS: Bilateral good airflow. No rhonchi or crackle. HEART: S1 and S2 audible. ABDOMEN: Soft, obese, nontender. No rebound. No guarding. NEUROLOGIC: Patient is awake and alert, communicative, ambulatory. DATA: He had a CT of the abdomen and pelvis done on 11/27/2017 that had no evidence of abscess or fistula, diverticulosis of the sigmoid colon. PLAN: Patient is being discharged home. He has finished his course of antibiotics. He will get a followup with Pain Management over his pain medication. He will follow up with Dr. Love. We will make arrangement for intraurethral lithotripsy and he will be given referral by Dr. Love and another solution offered was that he might put a smaller stent since bigger stent might be giving him left flank discomfort. Sammy Santiago MD
== END 2017-12-01 14:34 | disposition home or self-care (01) | DRG 391 ==
LOC: ED 22:47 → ERH 11-27 03:28 → OBSVTOIN 11-27 03:30 → ERH 11-27 03:50 → 5RSO 11-27 04:22 → 5RNO 11-28 08:32
PROVIDERS: ADMIT Internal Medicine; ATTEND Internal Medicine
DX: K57.32 Diverticulitis of large intestine without perforation or abscess without bleeding (principal); K65.1 Peritoneal abscess; I42.6 Alcoholic cardiomyopathy; E11.22 Type 2 diabetes mellitus with diabetic chronic kidney disease; E11.65 Type 2 diabetes mellitus with hyperglycemia; E66.01 Morbid (severe) obesity due to excess calories; I13.0 Hypertensive heart and chronic kidney disease with heart failure and stage 1 through stage 4 chronic kidney disease, or unspecified chronic kidney disease; K86.1 Other chronic pancreatitis; N13.6 Pyonephrosis; Z68.42 Body mass index [BMI] 45.0-49.9, adult; N18.9 Chronic kidney disease, unspecified; I50.9 Heart failure, unspecified; E78.5 Hyperlipidemia, unspecified; N32.81 Overactive bladder; F51.02 Adjustment insomnia; Z87.891 Personal history of nicotine dependence; Z91.19 Patient's noncompliance with other medical treatment and regimen; Z87.442 Personal history of urinary calculi

== ENCOUNTER 2017-12-18 08:24 | Day surgery (SDC) | payer BC ==
[2017-12-18] MEDS ORDERED: Propofol 10 mg/ml Inj (20 ML) ONE ×3 (13:11→13:36)
[2017-12-18] MEDS ORDERED: Midazolam 2 MG/2 ML VIAL ONE (13:12)
[2017-12-18] MEDS ORDERED: cefTRIAXone (Rocephin) 1 gm Inj ONE (13:21)
[2017-12-18] MEDS ORDERED: Iohexol 240 (50 ml) ONE (13:22)
[2017-12-18] MEDS ORDERED: HYDROmorphone 0.5 mg/0.5 ml ISec IVP PRN (13:53)
[2017-12-18] MEDS ORDERED: Lactated Ringer's 1,000 ML IV SCH (14:00)
[2017-12-18] MEDS ORDERED: HYDROmorphone 0.5 mg/0.5 ml ISec ONE ×2 (14:05→14:22)
[2017-12-18] MEDS ORDERED: HYDROmorphone 0.5 mg/0.5 ml ISec IVP ONE ×2 (14:06→14:23)
[2017-12-18 14:44] VITALS: BP 127/83; PULSE 87; RESP 18; TEMP 97.3; O2SAT 99
--- NOTE | 2017-12-18 18:47 | RAD ---
PROCEDURE: Fluoroscopy up to 1 hr. HISTORY: STENT REMOVAL / INSERTION / RETROGRADE PYELOGRAM (LEFT) COMPARISON: None TECHNIQUE: Total fluoroscopic time (continuous mode) utilized during the procedure: 35.0 seconds FINDINGS: Total exam DLP: (mGy) 49.50 IMPRESSION: Less than 1 hr fluoroscopic time utilized during performance of the procedure.
--- NOTE | 2017-12-19 08:42 | OP ---
PROCEDURE DATE: 12/18/2017 PREOPERATIVE DIAGNOSIS: Left renal calculi. POSTOPERATIVE DIAGNOSES: Left renal calculi, bladder stones and retained stent. PROCEDURE: Cystoscopy, removal of left ureteral stent, complicated left retrograde pyelogram, insertion of left ureteral stent and evacuation of bladder stones. ATTENDING SURGEON: Dr. Kamari Love. ANESTHESIA: General. SPECIMENS: Bladder stone fragments were sent to pathology. DRAINS: A 6 x 28 left ureteral stent. COMPLICATIONS: There were none. OPERATIVE FINDINGS: After informed consent was obtained, the patient was taken to the operating room and placed on the operating table. Anesthesia was administered. The patient was placed in dorsal lithotomy position and prepped and draped in the usual sterile fashion. A 21-Croat[place] cystoscope was placed in the patient's urethra and advanced proximally under direct vision until the bladder was entered. A full survey inspection of the bladder was then performed, which revealed a stent exiting from the left ureteral orifice. The stent was heavily encrusted. The right ureteral orifice was visualized and appeared within normal limits. At this point, a grasping forceps was passed. The grasping forceps was used to fragment the encrustations off of the stent. The end of the stent was then grasped and withdrawn through the urethral meatus. The upper limb of the stent was not releasing properly and at this point a sensor wire was obtained. The sensor wire was passed through the stent. Multiple passes were made and eventually the wire was able to be used to straighten out the distal limb. The wire was advanced more proximally into the kidney. It was a multilength stent, which the stent was then withdrawn while passing over the wire. The stent was then inspected. It was intact. At this point, the cystoscope was re-passed while back loading the guidewire. An open-ended ureteral catheter was obtained. It was passed through the cystoscope over the wire and into the left ureter. Contrast was then instilled into the system. There was no evidence of extravasation. There was filling defect noted in the renal pelvis, which appeared to be a stone. There was some dilatation of the upper collecting system. At this point, a 6 x 28 stent was obtained. It was passed over the wire through the cystoscope into the left ureter. The stent was advanced proximally under direct and fluoroscopic guidance until it was in proper position. At this point, the guidewire was removed. A coil was seen in the kidney on fluoroscopy. A coil was seen in the bladder on cystoscopy. At this point, the multiple stone fragments, which were located in the bladder were able to be irrigated out of the bladder and sent to pathology as specimen. When the bladder was clear, the procedure was completed. Bladder was drained. The cystoscope was removed and the patient was returned to the supine position. The patient tolerated the procedure well and was taken to the recovery room awake in stable condition. The patient received intravenous antibiotics prior to start of the procedure. Kamari Love MD
== END 2017-12-18 15:15 | disposition home or self-care (01) ==
LOC: SDS 08:24
PROVIDERS: ATTEND Urology
DX: N20.0 Calculus of kidney (principal); N21.0 Calculus in bladder; I11.0 Hypertensive heart disease with heart failure; I50.9 Heart failure, unspecified
CPT/HCPCS: 52332; 76000; 88300; C1758; C1769; C2625; J0696; J1170; J2250; J2704; J3010; J7120 ×2; Q9966

== ENCOUNTER 2018-01-19 01:16 | Inpatient (IN) | payer BC ==
[2018-01-19 01:17] VITALS: PULSE 95; BMI 48.7
--- NOTE | 2018-01-19 01:29 | ED PDOC ---
Arrival/HPI - General Time Seen by Provider: 01/19/18 01:20 Historian: Patient - History of Present Illness Narrative History of Present Illness (Text): 01/19/18 01:26 Gareth Leblanc is a 37 year old male, whose past medical history includes Atrial Fibrillation on Eliquis, diveriticulitis, pancreatitis, hypertension, chronic kidney disease, nephrolithiasis s/p stent placement, and non-ischemic cardiomyopathy, presents to the emergency department complaining of nausea, vomiting, diarrhea, and left lower quadrant abdominal pain for the past few days. The patient notes that his symptoms feel like his diverticulitis. The patient denies fevers, chills, headache, dizziness, chest pain, shortness of breath, dyspnea on exertion, cough, back pain, neck pain, urinary/bowel changes , or any other complaint. Time/Duration: Other (Several Days) Symptom Onset: Sudden Symptom Course: Worsening Activities at Onset: Rest, Light Context: Home Past Medical History - Provider Review Nursing Documentation Reviewed: Yes - Past History Past History: Non-Contributing - Infectious Disease Hx of Infectious Diseases: None - Tetanus Immunization Tetanus Immunization: Unknown - Cardiac Hx Pacemaker: No - Pulmonary Hx Respiratory Disorders: Yes Hx Sleep Apnea: Yes - Neurological Hx Paralysis: No - HEENT Hx HEENT Disorder: No - Renal Hx Renal Disorder: Yes (hydronephrosis, L ureteral pigtail stent) Hx Kidney Stones: Yes Hx Renal Failure: Yes - Endocrine/Metabolic Hx Endocrine Disorders: No - Hematological/Oncological Hx Blood Transfusions: No Hx Blood Transfusion Reaction: No - Integumentary Hx Dermatological Disorder: No - Musculoskeletal/Rheumatological Hx Musculoskeletal Disorders: No - Gastrointestinal Hx Gastroesophageal Reflux: Yes - Genitourinary/Gynecological Hx Genitourinary Disorders: Yes (urinary retention) Hx Urinary Tract Infection: Yes - Psychiatric Hx Emotional Abuse: No Hx Physical Abuse: No Hx Substance Use: No - Past Surgical History Past Surgical History: No Previous - Surgical History Hx Cholecystectomy: Yes - Anesthesia Hx Anesthesia Reactions: Yes (NAUSEA) Hx Malignant Hyperthermia: No - Suicidal Assessment Feels Threatened In Home Enviroment: No Family/Social History - Physician Review Nursing Documentation Reviewed: Yes Family/Social History: No Known Family HX Smoking Status: Current Some Days Smoker Hx Alcohol Use: Yes (PAST ETOH;"NONE SINCE PANCREATITIS") Hx Substance Use: No Hx Substance Use Treatment: No Allergies/Home Meds Allergies/Adverse Reactions: Allergies LUZ Inhibitors Allergy (Severe, Verified 12/13/17 10:34) ANGIOEDEMA Home Medications: Home Meds Medication Instructions Recorded Confirmed Carvedilol [Coreg] 12.5 mg PO BID 08/06/17 12/18/17 Famotidine [Pepcid] 20 mg PO DAILY 08/06/17 12/18/17 Furosemide [Lasix] 40 mg PO BID 08/06/17 12/18/17 Spironolactone [Aldactone] 25 mg PO DAILY 08/06/17 12/18/17 Amylase/Lipase/Protease [Pancrease 3 tab PO AC 12/13/17 12/18/17 [id number]] Metoclopramide [Reglan] 10 mg PO PRN PRN 12/13/17 12/18/17 Review of Systems - Physician Review All systems were reviewed & negative as marked: Yes - Review of Systems Constitutional: absent: Fevers, Night Sweats Respiratory: absent: SOB, Cough Cardiovascular: absent: Chest Pain, LIN Gastrointestinal: Abdominal Pain (LLQ Abdominal Pain), Diarrhea, Nausea, Vomiting Genitourinary Male: absent: Urinary Output Changes Musculoskeletal: absent: Back Pain, Neck Pain Neurological: absent: Headache, Dizziness Physical Exam Vital Signs Reviewed: Yes Vital Signs Temp Pulse Resp BP Pulse Ox 01/19/18 02:19 98.5 F 88 16 140/88 99 Temperature: Afebrile Blood Pressure: Normal Pulse: Regular Respiratory Rate: Normal Appearance: Positive for: Well-Appearing, Non-Toxic, Comfortable Pain Distress: None Mental Status: Positive for: Alert and Oriented X 3 - Systems Exam Head: Present: Atraumatic, Normocephalic Pupils: Present: PERRL Extroacular Muscles: Present: EOMI Conjunctiva: Present: Normal Mouth: Present: Moist Mucous Membranes Neck: Present: Normal Range of Motion Respiratory/Chest: Present: Clear to Auscultation, Good Air Exchange. No: Respiratory Distress, Accessory Muscle Use Cardiovascular: Present: Irregular Rhythm (Irregulary Irregular) Abdomen: Present: Tenderness (LLQ abdominal tenderness ) Back: Present: Normal Inspection Upper Extremity: Present: Normal Inspection. No: Cyanosis, Edema Lower Extremity: Present: Normal Inspection. No: Edema Neurological: Present: GCS=15, CN II-XII Intact, Speech Normal Skin: Present: Warm, Dry, Normal Color. No: Rashes Psychiatric: Present: Alert, Oriented x 3, Normal Insight, Normal Concentration Medical Decision Making ED Course and Treatment: 01/19/18 01:31 Impression: A 37 year old male presents to the emergency department complaining of left lower quadrant abdominal pain, nausea, vomiting for the past few days. Plan: -- Abdomen/Pelvis CT -- EKG -- Labs -- Morphine, Zofran, and IV Fluids -- Reassess and disposition Progress Notes: EKG: Ordered, reviewed, and independently interpreted the EKG. Rate : 89 BPM Rhythm : NSR with frequent premature ventricular complexes Interpretation : LVH 01/19/18 02:26: Patient requesting Dilaudid. When informed of policy to give Dilaudid to terminally ill cancer patients, the patient responded that it is not his fault people have cancer and that he has good insurance and should get whatever medication he wants. 01/19/18 02:54: Patient requesting additional 10mg of Morpine. - Lab Interpretations Lab Results: 01/19/18 02:00 Lab Results 01/19/18 02:00: Sodium 139, Potassium 4.4, Chloride 102, Carbon Dioxide 24, Anion Gap 18, BUN 19, Creatinine 1.3, Est GFR ( Amer) > 60, Est GFR (Non- Af Amer) > 60, Random Glucose 110, Calcium 10.2, Total Bilirubin 0.6, AST 30, ALT 21, Alkaline Phosphatase 83, Lactate Dehydrogenase 466, Total Creatine Kinase 68, Troponin I 0.02 D, NT-Pro-B Natriuret Pep 1720 H, Total Protein 9.1 H, Albumin 4.7, Globulin 4.4, Albumin/Globulin Ratio 1.1, Lipase 161 01/19/18 02:00: PT 12.6 H, INR 1.10 H I have reviewed the lab results: Yes - RAD Interpretation Radiology Orders: 01/19/18 01:33 ABD PELVIS PO & IV CONTRAST [CT] Stat - EKG Interpretation Interpreted by ED Physician: Yes Type: 12 lead EKG - Medication Orders Current Medication Orders: Discontinued Medications Diphenhydramine HCl (Benadryl) 25 mg IVP STAT STA Stop: 01/19/18 02:43 Sodium Chloride (Sodium Chloride 0.9%) 500 mls @ 999 mls/hr IV .Q31M STA Stop: 01/19/18 02:03 Last Admin: 01/19/18 02:14 Dose: 999 mls/hr eMAR Start Stop Document 01/19/18 02:14 MS (Rec: 01/19/18 02:16 MS [id number]) Intravenous Solution Start Date 01/19/18 Start Time 02:15 End Date 01/19/18 End time 02:45 Total Infusion Time 30 Metoclopramide HCl (Reglan) 10 mg IVP STAT STA Stop: 01/19/18 02:43 Last Admin: 01/19/18 02:51 Dose: 10 mg IVP Administration Document 01/19/18 02:51 MS (Rec: 01/19/18 02:51 MS [id number]) Charges for Administration # of IVP Administrations 1 Morphine Sulfate (Morphine) 10 mg IVP STAT STA Stop: 01/19/18 01:56 Last Admin: 01/19/18 02:17 Dose: 10 mg MAR Pain Assessment Document 01/19/18 02:17 MS (Rec: 01/19/18 02:17 MS [id number]) Pain Reassessment Is this a pain reassessment? No Sleep Is patient sleeping during reassessment? No Presence of Pain Presence of Pain Yes Pain Scale Used Pain Scale Used Numeric Location Pain Location Body Site Abdomen Description Description Constant Intensity of Pain at present 10 Pain Behavior Moaning Guarding Withdrawal from Touch IVP Administration Document 01/19/18 02:17 MS (Rec: 01/19/18 02:17 MS [id number]) Charges for Administration # of IVP Administrations 1 Morphine Sulfate (Morphine) 8 mg IM STAT STA Stop: 01/19/18 02:47 Ondansetron HCl (Zofran Inj) 8 mg IVP STAT STA Stop: 01/19/18 01:34 Last Admin: 01/19/18 02:00 Dose: 8 mg IVP Administration Document 01/19/18 02:00 MS (Rec: 01/19/18 02:01 MS [id number]) Charges for Administration # of IVP Administrations 2 - Scribe Statement The provider has reviewed the documentation as recorded by the Toyibjudy Hernandez Provider Scribe Attestation: All medical record entries made by the Scribe were at my direction and personally dictated by me. I have reviewed the chart and agree that the record accurately reflects my personal performance of the history, physical exam, medical decision making, and the department course for this patient. I have also personally directed, reviewed, and agree with the discharge instructions and disposition. Disposition/Present on Arrival - Present on Arrival History of DVT/PE: No History of Uncontrolled Diabetes: No Urinary Catheter: No History Surgical Site Infection Following: None - Disposition
[2018-01-19] MEDS ORDERED: Sodium Chloride 0.9% 500 ML IV STA (01:33)
[2018-01-19] MEDS ORDERED: Morphine 4 mg/ml ISec IVP STA ×3 (01:55→05:07)
[2018-01-19 02:36] LABS: ALB/GLOB RATIO 1.1 (1.1-1.8); ALBUMIN 4.7 g/dL (3.0-4.8); ALT/SGPT 21 U/L (7-56); AST/SGOT 30 U/L (17-59); BLOOD UREA NITROGEN 19 mg/dL (7-21); CALCIUM 10.2 mg/dL (8.4-10.5); GFR AFRICAN-AMERICAN > 60; GFR NON-AFRICAN AMERICAN > 60; LIPASE 161 U/L (23-300)
[2018-01-19 02:39] LABS: INR 1.1 (0.93-1.08); PROTHROMBIN TIME 12.6 SECONDS (9.4-12.5)
[2018-01-19] MEDS ORDERED: DiphenhydrAMINE 50 mg/ml Inj IVP STA (02:42)
[2018-01-19] MEDS ORDERED: Morphine 4 mg/ml ISec IM STA (02:46)
[2018-01-19 02:47] LABS: B-TYPE NATRIURETIC PEPTIDE 1720 pg/mL (0-450); TROPONIN I 0.02 ng/mL
[2018-01-19 02:56] LABS: BASO # 0.01 K/mm3 (0.0-2.0); BASO % 0.1 % (0.0-3.0); EOS % 0.4 % (1.5-5.0); GRAN # 8.23 (1.4-6.5); GRAN % 75.8 % (50.0-68.0); LYMPH # 1.5 (1.2-3.4); LYMPH % 14.2 % (22.0-35.0); MEAN CELL VOLUME 95.7 fl (80.0-105.0); MEAN CORPUSCULAR HEMOGLOBIN 32.2 pg (25.0-35.0); MEAN CORPUSCULAR HGB CONC 33.7 g/dl (31.0-37.0); MEAN PLATELET VOLUME 10.2 fl (7.0-11.0); MONO % 9.5 % (1.0-6.0); RBC 4.84 10^6/uL (3.5-6.1); RED CELL DISTRIBUTION WIDTH 14.8 % (11.5-14.5); WHITE BLOOD COUNT 10.9 10^3/ul (4.5-11.0)
[2018-01-19 02:58] LABS: HEMOGLOBIN 15.6 g/dL (14.0-18.0)
[2018-01-19] MEDS ORDERED: Iohexol 240 (50 ml) ONE (03:17)
[2018-01-19] MEDS ORDERED: Iohexol 350 MG/100 ML VIAL ONE (05:42)
--- NOTE | 2018-01-19 07:16 | ED PDOC ---
Physical Exam Vital Signs Reviewed: Yes Vital Signs Temp Pulse Resp BP Pulse Ox 01/19/18 10:23 90 17 97 01/19/18 07:22 98.0 F 88 18 132/78 98 01/19/18 07:21 132/75 01/19/18 02:19 98.5 F 88 16 140/88 99 Temperature: Afebrile Blood Pressure: Hypertensive Pulse: Regular Respiratory Rate: Normal Appearance: Positive for: Well-Appearing, Non-Toxic, Uncomfortable, Other ( uncomfortable, actively nauseous, alert/awake, cooperative, mild-moderate distress due to pain, follows command with ease) Pain Distress: None Mental Status: Positive for: Alert and Oriented X 3 - Systems Exam Head: Present: Atraumatic, Normocephalic Pupils: Present: PERRL Extroacular Muscles: Present: EOMI Conjunctiva: Present: Normal Ears: Present: Normal Mouth: Present: Dry, Normal Teeth, Other (uvula/tongue are midline, no exudate/ lesions, no drooling/stridor) Pharnyx: Present: Normal Nose (External): Present: Atraumatic Nose (Internal): Present: Normal Inspection Neck: Present: Normal Range of Motion, Trachea Midline. No: Meningeal Signs, MIDLINE TENDERNESS Respiratory/Chest: Present: Clear to Auscultation, Good Air Exchange. No: Respiratory Distress, Accessory Muscle Use Cardiovascular: Present: Regular Rate and Rhythm, Normal S1, S2. No: Murmurs Abdomen: Present: Tenderness (left lower/mid abd tenderness, MORBID obese male, no alexandra's sign, no mcburney's point tenderness, no masses/rebound/guarding/ rigidity), Normal Bowel Sounds Back: Present: Normal Inspection, CVA Tenderness (b/l, left >> right), Paraspinal Tenderness. No: Midline Tenderness Upper Extremity: Present: Normal Inspection, NORMAL PULSES, Neurovascularly Intact Lower Extremity: Present: Normal Inspection, Edema, NORMAL PULSES, Neurovascularly Intact. No: Hector's Sign, Tenderness Neurological: Present: GCS=15, CN II-XII Intact, Speech Normal Skin: Present: Warm, Other (cap refill ~ 1sec, no ulcerations, no petechiae) Psychiatric: Present: Alert, Oriented x 3 Medical Decision Making ED Course and Treatment: 01/19/18 07:00 Case signed out to me by Dr. Gastelum. Patient is a 37 year old male, whose PMH includes atrial Fibrillation on Eliquis, diveriticulitis, pancreatitis, hypertension, chronic kidney disease, who presents to the emergency department complaining of nausea, vomiting, diarrhea, and left lower quadrant abdominal pain. Currently pending CT imaging. pt can be dispositioned accordingly 800 pt continues to have elevated pain at 8/10, + active nauseous pt does not feel well will increase pain meds to Fentanyl 845 pt is made aware of his medical results pt felt some improvement pt is uncomfortable for the possibility of discharged will recommend admission/iv abx 01/19/18 09:[address] Santiago, who is made aware of ED plan and agrees with admitting patient and starting antibiotics, blood culture and consultation with GI Dr. Choe and urologist, Dr. Love. 01/19/18 09:[address] Love who states patient has chronic discomfort but unlikely requires further diagnostic and procedure from his standpoint. He agrees with seeing the patient in emergency department rather than upstairs. pt is made aware of his medical results agrees with admission Re-evaluation Time: 08:00 Reassessment Condition: Unchanged - Lab Interpretations Lab Results: 01/19/18 02:00 01/19/18 02:00 Lab Results 01/19/18 08:24: Urine Color Yellow, Urine Appearance Clear, Urine pH 5.5, Ur Specific [place] 1.015, Urine Protein Negative, Urine Glucose (UA) Negative, Urine Ketones Negative, Urine Blood Moderate H, Urine Nitrate Negative, Urine Bilirubin Negative, Urine Urobilinogen 0.2, Ur Leukocyte Esterase Small H, Urine RBC 15 - 20, Urine WBC 5 - 10, Ur Epithelial Cells None, Urine Bacteria Small 01/19/18 02:00: Sodium 139, Potassium 4.4, Chloride 102, Carbon Dioxide 24, Anion Gap 18, BUN 19, Creatinine 1.3, Est GFR ( Amer) > 60, Est GFR (Non- Af Amer) > 60, Random Glucose 110, Calcium 10.2, Total Bilirubin 0.6, AST 30, ALT 21, Alkaline Phosphatase 83, Lactate Dehydrogenase 466, Total Creatine Kinase 68, Troponin I 0.02 D, NT-Pro-B Natriuret Pep 1720 H, Total Protein 9.1 H, Albumin 4.7, Globulin 4.4, Albumin/Globulin Ratio 1.1, Lipase 161 01/19/18 02:00: PT 12.6 H, INR 1.10 H 01/19/18 02:00: WBC 10.9 D, RBC 4.84, Hgb 15.6 D, Hct 46.3, MCV 95.7, MCH 32.2 , MCHC 33.7, RDW 14.8 H, Plt Count 340, MPV 10.2, Gran % 75.8 H, Lymph % (Auto) 14.2 L, [place] % (Auto) 9.5 H, Eos % (Auto) 0.4 L, Baso % (Auto) 0.1, Gran # 8.23 H, Lymph # (Auto) 1.5, [place] # (Auto) 1.0 H, Eos # (Auto) 0.0, Baso # (Auto) 0.01 I have reviewed the lab results: Yes Interpretation: Abnormal lab values (+ abnl UA, elevated BNP (chronic)) - RAD Interpretation Narrative RAD Interpretations (Text): 01/19/18 07:10 CT Abdomen and Pelvis: Creator : ABEL CONNER COMPARISON: CT - ABD PELVIS PO IV CONTRAST 2017-11-27 12:28 FINDINGS: Lung bases: Mild parabronchial cuffing, which can be seen with bronchitis, reactive airway disease or viral pneumonitis versus mild failure. Bibasilar mild patchy nonspecific infiltrates are present, consistent with atelectasis or pneumonia. Correlation with patient's hydration status is recommended. Heart: Cardiomegaly. Mediastinum: Small hiatal hernia. ABDOMEN: Liver: Fatty nodular liver. Gallbladder and bile ducts: Cholecystectomy. Pancreas: Unremarkable. No mass. No ductal dilation. Spleen: Unremarkable. No splenomegaly. Adrenals: Unremarkable. No mass. Kidneys and ureters: Stable mild to moderate hydronephrosis on the left. Left perinephric fluid and inflammatory change with heterogeneous appearance to the left nephrogram. Correlation with patient's clinical data is recommended if pyelonephritis with ascending urinary tract infection is clinically suspected. Left renal cyst measuring 2.8 cm. No hydronephrosis. Nonobstructive left lower pole renal stone. Stomach and bowel: Diverticulosis. No obstruction. No mucosal thickening. Appendix: Normal appendix. PELVIS: Bladder: The bladder is partially distended. Reproductive: The prostate gland is seen. ABDOMEN and PELVIS: Intraperitoneal space: Unremarkable. No free air. No significant fluid collection. Bones/joints: No acute fracture. No dislocation. L4-L5 vacuum degenerative disc disease. L4-L5 disc herniation. No diverticulosis of the sigmoid colon Soft tissues: Unremarkable. Vasculature: Unremarkable. No abdominal aortic aneurysm. Lymph nodes: Unremarkable. No enlarged lymph nodes. Tubes, lines and devices: Left-sided double-J ureteral stent. IMPRESSION: 1. Left perinephric fluid and inflammatory change with heterogeneous appearance to the left nephrogram. Correlation with patient's clinical data is recommended if pyelonephritis with ascending urinary tract infection is clinically suspected. 2. Left-sided double-J ureteral stent. There is stable mild to moderate hydronephrosis on the left. Correlation with stent function is recommended. Radiology Orders: 01/19/18 01:33 ABD PELVIS PO & IV CONTRAST [CT] Stat - Medication Orders Current Medication Orders: Carvedilol (Coreg) 12.5 mg PO BID [facility] Last Admin: 01/19/18 18:11 Dose: 12.5 mg Famotidine (Pepcid) 20 mg IVP DAILY [facility] Meropenem (Merrem Iv 1 Gm Premix) 50 mls @ 100 mls/hr IVPB Q8 ELSIE PRN Reason: Protocol Last Admin: 01/19/18 14:10 Dose: 100 mls/hr eMAR Start Stop Document 01/19/18 14:10 LMN (Rec: 01/19/18 16:02 LMN [id number]) Intravenous Solution Start Date 01/19/18 Start Time 14:10 Sodium Chloride (Sodium Chloride 0.9%) 1,000 mls @ 75 mls/hr IV .[id number] [facility] Last Admin: 01/19/18 15:15 Dose: 75 mls/hr eMAR Start Stop Document 01/19/18 15:15 LMN (Rec: 01/19/18 16:25 LMN [id number]) Intravenous Solution Start Date 01/19/18 Start Time 15:15 Morphine Sulfate (Morphine) 5 mg IVP Q6H PRN PRN Reason: Pain, moderate (4-7) Last Admin: 01/19/18 14:14 Dose: 5 mg IVP Administration Document 01/19/18 14:14 [facility] (Rec: 01/19/18 14:15 [place] [id number]) Charges for Administration # of IVP Administrations 1 Ondansetron HCl (Zofran Inj) 4 mg IVP Q6H PRN PRN Reason: Nausea/Vomiting Last Admin: 01/19/18 16:21 Dose: 4 mg IVP Administration Document 01/19/18 16:21 LMN (Rec: 01/19/18 16:21 LMN [place] [id number]) Charges for Administration # of IVP Administrations 1 Discontinued Medications Diphenhydramine HCl (Benadryl) 25 mg IVP STAT STA Stop: 01/19/18 02:43 Last Admin: 01/19/18 03:11 Dose: 25 mg IVP Administration Document 01/19/18 03:11 MS (Rec: 01/19/18 03:11 MS [id number]) Charges for Administration # of IVP Administrations 1 Fentanyl (Fentanyl) 75 mcg IVP ONCE ONE Stop: 01/19/18 07:58 Last Admin: 01/19/18 08:11 Dose: 75 mcg MAR Pain Assessment Document 01/19/18 08:11 DALILA (Rec: 01/19/18 08:11 DALILA [id number]) Pain Reassessment Is this a pain reassessment? Yes Sleep Is patient sleeping during reassessment? No Presence of Pain Presence of Pain Yes Location Pain Location Body Site Abdomen IVP Administration Document 01/19/18 08:11 DALILA (Rec: 01/19/18 08:11 DALILA [id number]) Charges for Administration # of IVP Administrations 1 Re-Assess: MAR Pain Assessment Document 01/19/18 09:11 LMN (Rec: 01/19/18 12:[address]) Pain Reassessment Is this a pain reassessment? Yes Presence of Pain Presence of Pain No Pain Scale Used Pain Scale Used Numeric Location Left, Right or Bilateral Left Upper or Lower Lower Pain Location Body Site Abdomen Description Effectiveness of Techniques Patient reports effective pain relief Furosemide (Lasix) 40 mg IVP STAT STA Stop: 01/19/18 06:36 Last Admin: 01/19/18 07:21 Dose: 40 mg MAR Blood Pressure Document 01/19/18 07:21 [email or web address] (Rec: 01/19/18 07:22 CASTS1 [id number]) Blood Pressure Blood Pressure (100/60-150/90) 132/75 IVP Administration Document 01/19/18 07:21 CASTS1 (Rec: 01/19/18 07:22 CASTS1 [id number]) Charges for Administration # of IVP Administrations 1 Sodium Chloride (Sodium Chloride 0.9%) 500 mls @ 999 mls/hr IV .Q31M STA Stop: 01/19/18 02:03 Last Admin: 01/19/18 02:14 Dose: 999 mls/hr eMAR Start Stop Document 01/19/18 02:14 MS (Rec: 01/19/18 02:16 MS [id number]) Intravenous Solution Start Date 01/19/18 Start Time 02:15 End Date 01/19/18 End time 02:45 Total Infusion Time 30 Famotidine (Pepcid 20mg/50ml Premix) 20 mg in 50 mls @ 100 mls/hr IVPB STAT STA Stop: 01/19/18 08:26 Last Admin: 01/19/18 08:10 Dose: 100 mls/hr eMAR Start Stop Document 01/19/18 08:10 DALILA (Rec: 01/19/18 08:11 DALILA [id number]) Intravenous Solution Start Date 01/19/18 Start Time 08:11 Sodium Chloride (Sodium Chloride 0.9%) 1,000 mls @ 150 mls/hr IV .Q6H40M [facility] Last Admin: 01/19/18 08:32 Dose: 150 mls/hr eMAR Start Stop Document 01/19/18 08:32 [email or web address] (Rec: 01/19/18 08:34 CASTS1 [id number]) Intravenous Solution Start Date 01/19/18 Start Time 08:34 End Date 01/19/18 Vancomycin HCl 1.5 gm/ Sodium (Chloride) 500 mls @ 167 mls/hr IVPB ONCE ONE PRN Reason: Protocol Stop: 01/19/18 12:36 Last Admin: 01/19/18 11:30 Dose: 167 mls/hr eMAR Start Stop Document 01/19/18 11:30 LMN (Rec: 01/19/18 16:18 LMN [id number]) Intravenous Solution Start Date 01/19/18 Start Time 16:18 Metoclopramide HCl (Reglan) 10 mg IVP STAT STA Stop: 01/19/18 02:43 Last Admin: 01/19/18 02:51 Dose: 10 mg IVP Administration Document 01/19/18 02:51 MS (Rec: 01/19/18 02:51 MS [id number]) Charges for Administration # of IVP Administrations 1 Morphine Sulfate (Morphine) 10 mg IVP STAT STA Stop: 01/19/18 01:56 Last Admin: 01/19/18 02:17 Dose: 10 mg MAR Pain Assessment Document 01/19/18 02:17 MS (Rec: 01/19/18 02:17 MS [id number]) Pain Reassessment Is this a pain reassessment? No Sleep Is patient sleeping during reassessment? No Presence of Pain Presence of Pain Yes Pain Scale Used Pain Scale Used Numeric Location Pain Location Body Site Abdomen Description Description Constant Intensity of Pain at present 10 Pain Behavior Moaning Guarding Withdrawal from Touch IVP Administration Document 01/19/18 02:17 MS (Rec: 01/19/18 02:17 MS [id number]) Charges for Administration # of IVP Administrations 1 Morphine Sulfate (Morphine) 8 mg IVP STAT STA Stop: 01/19/18 03:06 Last Admin: 01/19/18 03:11 Dose: 8 mg MAR Pain Assessment Document 01/19/18 03:11 MS (Rec: 01/19/18 03:11 MS [id number]) Pain Reassessment Is this a pain reassessment? Yes Sleep Is patient sleeping during reassessment? No Presence of Pain Presence of Pain Yes Pain Scale Used Pain Scale Used Numeric Location Pain Location Body Site Abdomen Description Description Constant Intensity of Pain at present 10 Pain Behavior Moaning Crying Alleviating Factors Medication IVP Administration Document 01/19/18 03:11 MS (Rec: 01/19/18 03:11 MS [id number]) Charges for Administration # of IVP Administrations 1 Morphine Sulfate (Morphine) 8 mg IVP STAT STA Stop: 01/19/18 05:08 Last Admin: 01/19/18 05:27 Dose: 8 mg MAR Pain Assessment Document 01/19/18 05:27 RG (Rec: 01/19/18 05:28 RG [id number]) Pain Reassessment Is this a pain reassessment? Yes Presence of Pain Presence of Pain Yes Pain Scale Used Pain Scale Used Numeric Description Pain Behavior Irritability IVP Administration Document 01/19/18 05:27 (Rec: 01/19/18 05:28 RG [id number]) Charges for Administration # of IVP Administrations 1 Re-Assess: MAR Pain Assessment Document 01/19/18 06:27 RG (Rec: 01/19/18 06:52 RG [id number]) Pain Reassessment Is this a pain reassessment? Yes Sleep Is patient sleeping during reassessment? Yes Ondansetron HCl (Zofran Inj) 8 mg IVP STAT STA Stop: 01/19/18 01:34 Last Admin: 01/19/18 02:00 Dose: 8 mg IVP Administration Document 01/19/18 02:00 MS (Rec: 01/19/18 02:01 MS [id number]) Charges for Administration # of IVP Administrations 2 - Scribe Statement The provider has reviewed the documentation as recorded by the Scribe Megan Napoles Provider Scribe Attestation: All medical record entries made by the Scribe were at my direction and personally dictated by me. I have reviewed the chart and agree that the record accurately reflects my personal performance of the history, physical exam, medical decision making, and the department course for this patient. I have also personally directed, reviewed, and agree with the discharge instructions and disposition. Disposition/Present on Arrival - Present on Arrival Any Indicators Present on Arrival: No History of DVT/PE: No History of Uncontrolled Diabetes: No Urinary Catheter: No History of Decub. Ulcer: No History Surgical Site Infection Following: None - Disposition Have Diagnosis and Disposition been Completed?: Yes Diagnosis: Intractable abdominal pain, Nausea with vomiting, Dehydration, UTI (urinary tract infection), Pyelonephritis Disposition: HOSPITALIZED Disposition Time: 09:30 Patient Plan: Admission, Observation Condition: STABLE
--- NOTE | 2018-01-19 07:17 | CT ---
EXAM: CT Abdomen and Pelvis With Intravenous Contrast CLINICAL HISTORY: 37 years old, male; Pain; Abdominal pain; Generalized; Additional info: Diverticulitis? TECHNIQUE: Axial computed tomography images of the abdomen and pelvis with intravenous contrast. All CT scans at this facility use one or more dose reduction techniques, viz.: automated exposure control; ma/kV adjustment per patient size (including targeted exams where dose is matched to indication; i.e. head); or iterative reconstruction technique. 752 images are submitted. Oral contrast was administered. Axial images are submitted in lung and soft tissue windows. Coronal and sagittal reformatted images were created and reviewed. CONTRAST: 96 mL of omni 350 administered intravenously. COMPARISON: CT - ABD PELVIS PO IV CONTRAST 2017-11-27 12:28 FINDINGS: Lung bases: Mild parabronchial cuffing, which can be seen with bronchitis, reactive airway disease or viral pneumonitis versus mild failure.Bibasilar mild patchy nonspecific infiltrates are present, consistent with atelectasis or pneumonia. Correlation with patient's hydration status is recommended. Heart: Cardiomegaly. Mediastinum: Small hiatal hernia. ABDOMEN: Liver: Fatty nodular liver. Gallbladder and bile ducts: Cholecystectomy. Pancreas: Unremarkable. No mass. No ductal dilation. Spleen: Unremarkable. No splenomegaly. Adrenals: Unremarkable. No mass. Kidneys and ureters: Stable mild to moderate hydronephrosis on the left. Left perinephric fluid and inflammatory change with heterogeneous appearance to the left nephrogram. Correlation with patient's clinical data is recommended if pyelonephritis with ascending urinary tract infection is clinically suspected. Left renal cyst measuring 2.8 cm. No hydronephrosis. Nonobstructive left lower pole renal stone. Stomach and bowel: Diverticulosis. No obstruction. No mucosal thickening. Appendix: Normal appendix. PELVIS: Bladder: The bladder is partially distended. Reproductive: The prostate gland is seen. ABDOMEN and PELVIS: Intraperitoneal space: Unremarkable. No free air. No significant fluid collection. Bones/joints: No acute fracture. No dislocation. L4-L5 vacuum degenerative disc disease. L4-L5 disc herniation. No diverticulosis of the sigmoid colon 2 2618 Soft tissues: Unremarkable. Vasculature: Unremarkable. No abdominal aortic aneurysm. Lymph nodes: Unremarkable. No enlarged lymph nodes. Tubes, lines and devices: Left-sided double-J ureteral stent. IMPRESSION: 1. Left perinephric fluid and inflammatory change with heterogeneous appearance to the left nephrogram. Correlation with patient's clinical data is recommended if pyelonephritis with ascending urinary tract infection is clinically suspected. 2. Left-sided double-J ureteral stent. There is stable mild to moderate hydronephrosis on the left. Correlation with stent function is recommended.
[2018-01-19] MEDS ORDERED: Famotidine 20mg/50ml 20 MG/50 ML BAG IVPB STA (07:57)
[2018-01-19] MEDS ORDERED: Sodium Chloride 0.9% 1,000 ML IV SCH (08:00)
[2018-01-19 08:29] LABS: PH,URINE 5.5 (4.7-8.0); URINE BILIRUBIN NEGATIVE (NEGATIVE); URINE BLOOD MODERATE (NEGATIVE); URINE GLUCOSE (UA) NEGATIVE (NEGATIVE); URINE LEUKOCYTE ESTERASE SMALL Leu/uL (NEGATIVE); URINE PROTEIN NEGATIVE mg/dL (<30 mg/dL); URINE UROBILINOGEN 0.2 E.U./dL (<1 E.U./dL)
[2018-01-19 08:30] LABS: URINE APPEARANCE CLEAR (CLEAR); URINE COLOR YELLOW (YELLOW)
[2018-01-19 08:55] LABS: URINE RBC 15 - 20 /hpf (0-2)
[2018-01-19 08:56] LABS: URINE BACTERIA SMALL (NEG)
[2018-01-19] MEDS ORDERED: Cefepime IV 2 gm in NS 2 GM/100 ML BAG IVPB STA (09:02)
[2018-01-19 09:15] LABS: VENOUS BLOOD GAS BASE EXCESS -2.7 mmol/L (0.0-2.0); VENOUS BLOOD GAS PO2 94 mm/Hg (30-55); VENOUS BLOOD PH 7.36 (7.32-7.43)
[2018-01-19] MEDS ORDERED: Vancomycin 1.5 GM in Sodium Chloride 0.9% 500 ML IVPB ONE (09:37)
[2018-01-19] MEDS ORDERED: HYDROmorphone 2 mg/ml ISec IVP PRN (12:15)
--- NOTE | 2018-01-19 13:53 | CARD ---
APPROVED REPORT EKG Measurement Heart [id number] <Conclusion> Sinus rhythm with frequent premature ventricular complexes Moderate voltage criteria for LVH, may be normal variant Nonspecific ST and T wave abnormality Prolonged QT Abnormal ECG
[2018-01-19] MEDS: Meropenem IV 1 gm in NS 50 ML IVPB SCH ×2 (14:10→22:28)
[2018-01-19] MEDS: Morphine 5 MG/ML SYRINGE IVP PRN ×2 (14:14→20:19)
--- NOTE | 2018-01-19 14:41 | HP ---
HISTORY OF PRESENT ILLNESS: The patient is 37 years old, known to me from multiple previous admissions, came to Emergency Room because of intractable nausea, left flank pain and intermittent hematuria. The patient states he had stent replaced on 12/18/2017. Since then, usually his morning urine is clear, but during the day time he has hematuria intermittently. Complained of feeling nauseous, increased appetite and intermittent diarrhea. PAST MEDICAL HISTORY: Significant for 1. Morbid obesity. 2. Hypertension. 3. Nonischemic cardiomyopathy. 4. History of alcohol abuse in the past. 5. History of recurrent pancreatitis status post celiac block. 6. Gastritis. 7. History of cholecystectomy. 8. History of nephrolithiasis status post stent placement. 9. Acute renal failure few months ago, but recovered completely. ALLERGIES: HE IS ALLERGIC TO LUZ INHIBITORS. MEDICATIONS: At home, he is on oxycodone. He is on Eliquis 2.5 twice a day. He is on pancreatic enzymes, Aldactone 25 daily, Reglan as needed, Dilaudid 2 mg 3 times a day, Lasix 40 mg twice a day, Coreg 12.5 twice a day. SOCIAL HISTORY: He still smokes here and there, used to be heavy alcohol user, but quit since he has having abdominal pain. REVIEW OF SYSTEMS: Significant for nausea and left flank pain. PHYSICAL EXAMINATION: GENERAL: He is awake and alert, not in any acute distress. VITAL SIGNS: He is afebrile, pulse 75, respirations 20, blood pressure 122/78. LUNGS: Bilaterally fair airflow. No rhonchi or crackle. HEART: S1 and S2 audible. ABDOMEN: Soft, obese and has left upper and lower quadrant discomfort, also has left costophrenic angle discomfort. NEUROLOGICAL: He is awake, alert, oriented, communicative. EXTREMITIES: Bilateral leg +1 edema. LABORATORY DATA: WBC 10.9, hemoglobin 15.6, hematocrit 46.3, platelets of 340. PT 12.6, INR 1.10. Chemistry: Sodium 139, potassium 4.4, chloride 102, CO2 of 24, BUN 19, creatinine 1.3, blood sugar of 110. BNP 1720. Total protein 9.0. Urine shows small leukocyte, moderate blood. He had CT scan of the abdomen and pelvis done, that shows left perinephric fluid and inflammatory changes with heterogenous appearance to the left nephrogram, left-sided Double-J ureteral stent is also visualized and mild to moderate hydronephrosis on the left side. ASSESSMENT AND PLAN: 1. Left upper quadrant and left lower quadrant pain. 2. Left hydronephrosis and pyelonephritis. 3. Status post stent placement. 4. Intractable nausea. 5. History of recurrent pancreatitis. 6. Hypertension. 7. Hyperlipidemia. PLAN: We will start the patient is on IV fluid, analgesic as needed. Dr. Love for consult and we will follow up this patient in a.m. Sammy Santiago MD
[2018-01-19] MEDS: Sodium Chloride 0.9% 1,000 ML IV SCH (15:15)
--- NOTE | 2018-01-19 21:52 | CP.PCM.CON ---
History of Present Illness - History of Present Illness History of Present Illness: 37 year old male with PMH of left sided pyelonephritis with obstructing left ureteral calculus S/P cystoscopy, placement of left pigtail stent , morbid obesity with BMI 48, HTN, alcoholic cardiomyopathy, history of pancreatitis, history of kidney stones, history of acute sigmoid diverticulitis came in to [facility] complaining of left lower quadrant pain associated with nausea and vomiting. He denies having fever or chills, no diarrhea, no constipation, no dysuria or hematuria, no headache or dizziness, no cough or colds, no sore throat, no dysphagia, no chest pain. CT A/P was done which is suggesting perinephric abscess. Infectious Diseases consult is requested to further evaluate and manage. Review of Systems - Review of Systems All systems: reviewed and no additional remarkable complaints except (as per HPI ) Past Patient History - Infectious Disease Hx of Infectious Diseases: None - Tetanus Immunizations Tetanus Immunization: Unknown - Past Medical History & Family History Past Medical History?: Yes - Past Social History Smoking Status: Current Some Days Smoker - CARDIAC Hx Pacemaker: No - PULMONARY Hx Respiratory Disorders: Yes Hx Sleep Apnea: Yes - NEUROLOGICAL Hx Paralysis: No - HEENT Hx HEENT Problems: No - RENAL Hx Chronic Kidney Disease: Yes (hydronephrosis, L ureteral pigtail stent) Hx Kidney Stones: Yes Hx Renal Failure: Yes - ENDOCRINE/METABOLIC Hx Endocrine Disorders: No - HEMATOLOGICAL/ONCOLOGICAL Hx Blood Transfusions: No Hx Blood Transfusion Reaction: No - INTEGUMENTARY Hx Dermatological Problems: No - MUSCULOSKELETAL/RHEUMATOLOGICAL Hx Musculoskeletal Disorders: No - GASTROINTESTINAL Hx Gastroesophageal Reflux: Yes - GENITOURINARY/GYNECOLOGICAL Hx Genitourinary Disorders: Yes (urinary retention) Hx Urinary Tract Infection: Yes - PSYCHIATRIC Hx Emotional Abuse: No Hx Physical Abuse: No Hx Substance Use: No - SURGICAL HISTORY Hx Cholecystectomy: Yes - ANESTHESIA Hx Anesthesia Reactions: Yes (NAUSEA) Hx Malignant Hyperthermia: No Meds Allergies/Adverse Reactions: Allergies Allergy/AdvReac Type Severity Reaction Status Date / Time LUZ Inhibitors Allergy Severe ANGIOEDEMA Verified 12/13/17 10:34 - Medications Medications: Current Medications Sodium Chloride (Sodium Chloride 0.9%) 1,000 mls @ 150 mls/hr IV .[id number] [facility] Last Admin: 01/19/18 08:32 Dose: 150 mls/hr Cefepime HCl (Maxipime 2gm) 2 gm in 100 mls @ 100 mls/hr IVPB STAT STA PRN Reason: Protocol Stop: 01/19/18 10:01 Physical Exam - Constitutional Appears: Chronically Ill - Head Exam Head Exam: NORMAL INSPECTION - Neck Exam Neck exam: Negative for: Meningismus - Respiratory Exam Respiratory Exam: Decreased Breath Sounds - Cardiovascular Exam Cardiovascular Exam: +S1, +S2 - GI/Abdominal Exam GI & Abdominal Exam: Soft, Tenderness (LLQ). absent: Distended, Guarding, Rebound, Rigid Results - Vital Signs Recent Vital Signs: Last Vital Signs Temp 98.0 F 01/19/18 07:22 Pulse 88 01/19/18 07:22 Resp 18 01/19/18 07:22 BP 132/78 01/19/18 07:22 Pulse Ox 98 01/19/18 07:22 - Labs Result Diagrams: 01/19/18 02:00 01/19/18 02:00 Assessment & Plan - Assessment and Plan (Free Text) Plan: Assessment consider left sided perinephric abscess history of acute sigmoid diverticulitis history of severe sepsis with probable left sided pyelonephritis with obstructing left ureteral calculus S/P cystoscopy, placement of left pigtail stent morbid obesity with BMI 49 HTN alcoholic cardiomyopathy history of pancreatitis history of kidney stones Plan started patient on Merrem pending blood and urine cx; follow up Urology recommendations will monitor clinically
[2018-01-20] MEDS: Morphine 5 MG/ML SYRINGE IVP PRN ×5 (01:29→23:12)
[2018-01-20] MEDS: Meropenem IV 1 gm in NS 50 ML IVPB SCH ×3 (05:33→22:36)
[2018-01-20] MEDS ORDERED: Morphine 4 mg/ml ISec IVP PRN (10:14)
--- NOTE | 2018-01-20 18:03 | PN ---
DATE: SUBJECTIVE: The patient is 37 years old, seen and examined. Still has left flank pain. Does not complain of any nausea. Did not talk. Does not have appetite for a liquid diet. PHYSICAL EXAMINATION VITAL SIGNS: He is afebrile, pulse 69, respirations 20, blood pressure 129/73. LUNGS: Bilateral fair airflow. No rhonchi or crackle. HEART: S1 and S2 audible. ABDOMEN: Soft, obese, nontender except left upper quadrant discomfort. No epigastric or right upper quadrant discomfort. NEUROLOGIC: He is awake, alert, oriented, communicative. LABORATORY EXAM: Blood cultures are negative. ASSESSMENT: 1. History of nephrolithiasis, status post stent placement 3-4 weeks ago. 2. Pyelonephritis. 3. Morbid obesity. 4. Recurrent pancreatitis. 5. Sigmoid diverticulitis. 6. Hypertension. 7. Alcoholic cardiomyopathy. PLAN: We will continue the patient on current medication. Continue antibiotic treatment. Continue analgesic and awaiting Dr. Love's input. The patient states he was told that if he lose 15-20 pounds, he will be able to have external lithotripsy in [place] because he is unable to find anybody in [place]. Sammy Santiago MD
[2018-01-20] MEDS: Sodium Chloride 0.9% 1,000 ML IV SCH (18:45)
--- NOTE | 2018-01-20 22:00 | PN ---
DATE: 01/20/2018 SUBJECTIVE: Patient is in bed, in no acute distress, nontoxic. PHYSICAL EXAMINATION: VITAL SIGNS: Patient's temperature is 97, blood pressure is 129/70, respiratory rate of 18. HEENT: Unremarkable. NECK: Supple. LUNGS: Decreased breath sounds. HEART: Normal S1, S2. ABDOMEN: Soft, nontender. LABORATORY DATA: Reveals a white count of 10,000, hemoglobin of 15, platelets of 340. Chemistry reveals a BUN of 19, creatinine of 1.3, BNP is 1720. Urinalysis is noted. Microbiology reveals blood cultures, urine cultures. REVIEW OF ORDERS: Reveals the patient to be on meropenem and vancomycin. ASSESSMENT AND PLAN: A 37-year-old male with a history of left-sided pyelonephritis, obstructive left ureteral calculus, status post cystoscopy, placement of with possible left-sided perinephric abscess, acute with a history of acute sigmoid diverticulitis and history of severe sepsis with left-sided pyelonephritis, obstructed with ureteral calculus; alcoholic cardiomyopathy; morbid obesity with body mass index of 49; hypertension; history of pancreatitis; history of kidney disease, on meropenem. Thus far, the blood cultures are negative. The urine cultures have no growth. Another blood culture is negative. Urinalysis shows 5 to 10 wbc, moderate blood, small leukocyte. CAT scan is reviewed. We will repeat urinalysis and urine culture. We will follow with you. Roland Maria MD
[2018-01-21] MEDS: Sodium Chloride 0.9% 1,000 ML IV SCH (04:28)
[2018-01-21] MEDS: Morphine 5 MG/ML SYRINGE IVP PRN ×3 (04:28→15:18)
[2018-01-21] MEDS: Meropenem IV 1 gm in NS 50 ML IVPB SCH ×3 (06:35→21:05)
--- NOTE | 2018-01-21 10:24 | PN ---
DATE: 01/21/2018 FOLLOWUP NOTE SUBJECTIVE: He is comfortable in bed, in no acute distress. He was admitted with intractable nausea, vomiting and flank pain, hematuria. He has a history of nephrolithiasis. Also, history of cardiomyopathy. He also has history of hematuria, intermittent. No hematuria now. PAST MEDICAL HISTORY: Morbid obesity, nonischemic cardiomyopathy, hematuria, cholecystectomy, nephrolithiasis, alcoholic cardiomyopathy. ALLERGIES: TO LUZ INHIBITORS. SOCIAL HISTORY: Smokes, heavy alcohol abuse. REVIEW OF SYSTEMS: As per HPI. Rest of 12-point review of systems reviewed negative. PHYSICAL EXAMINATION: GENERAL: Comfortable, awake, alert, oriented. VITAL SIGNS: Temperature 98.7, heart rate 70 per minute, blood pressure 120/78, respiratory rate 18 per minute. HEENT: Pallor positive. NECK: No lymphadenopathy. CHEST: Air entry present and equal bilateral. No added sounds. CARDIOVASCULAR: S1 and S2 normal. No murmur. No gallop. ABDOMEN: Soft, nontender. No hepatosplenomegaly. EXTREMITIES: 1+ edema. NEURO: Awake, alert, oriented x3. No focal sensorimotor deficit. LABORATORY DATA: White count 10.9, hemoglobin 15.6, hematocrit 46, platelet count 340. INR 1. Sodium 139, creatinine 1.3. ASSESSMENT: Left upper quadrant pain, left hydronephrosis, left pyelonephritis, intractable nausea, vomiting, history of recurrent pancreatitis, hypertension, hyperlipidemia. PLAN: ID consultation, Dr. Maria appreciated. Urine culture, blood culture no growth. CAT scan of the abdomen negative. Morbid obesity. History of pancreatitis. Dr. Maria's note reviewed. Pain control with current medication, morphine 5 mg every 4 hours p.r.n. He is also on Duragesic patch. Continue famotidine. Continue Coreg. Talita Spears MD
[2018-01-21] MEDS ORDERED: HYDROmorphone 0.5 mg/0.5 ml ISec IVP STA (20:36)
[2018-01-22] MEDS: HYDROmorphone 0.5 mg/0.5 ml ISec IVP PRN ×3 (01:24→09:53)
--- NOTE | 2018-01-22 03:44 | PN ---
DATE: 01/21/2018 SUBJECTIVE: Patient is in bed, in no acute distress, nontoxic, still having flank pain on the left. PHYSICAL EXAMINATION: VITAL SIGNS: Temperature is 98, blood pressure is 120/80, respiratory rate of 18, heart rate is 75. HEENT: Unremarkable. NECK: Supple. LUNGS: Decreased breath sounds. HEART: Normal S1, S2. ABDOMEN: Soft. LABORATORY DATA: Reveals a white count of 10,000, hemoglobin of 15, platelets of 340. BUN of 19, creatinine of 1.3, BNP is 1720. Urinalysis is noted. Microbiology reveals the blood cultures are negative. Urine cultures are negative. MEDICATIONS: Review of orders reveals the patient to be on meropenem. ASSESSMENT AND PLAN: This is a 37-year-old male with a history of left-sided pyelonephritis; obstructive left ureteral calculus, status post cystoscopy; possible left-sided perinephric abscess, acute; history of acute sigmoid diverticulitis; history of severe sepsis with left-sided pyelonephritis, obstructed with ureteral calculus; alcoholic cardiomyopathy; morbid obesity with body mass index of 49; hypertension; history of pancreatitis; history of kidney disease, on meropenem. We will continue the meropenem since the patient continues to have the symptoms, although somewhat improved. Roland Maria MD
[2018-01-22] MEDS: Meropenem IV 1 gm in NS 50 ML IVPB SCH ×3 (05:30→22:14)
[2018-01-22 08:00] VITALS: RESP 20
--- NOTE | 2018-01-22 08:55 | CON ---
CHIEF COMPLAINT: Nausea and vomiting, and left-sided abdominal pain. HISTORY OF PRESENT ILLNESS: This is a 37-year-old male who is well known to me. Patient has multiple medical issues including atrial fibrillation, diverticulitis, pancreatitis, hypertension, congestive heart failure, chronic kidney disease, nephrolithiasis, cardiomyopathy. He presented once again to the emergency room complaining of nausea, vomiting, diarrhea, and left lower quadrant abdominal pain. Patient has had multiple admissions over the past few months for the same complaints. Urologically, patient has a small renal calculus. The plan was for an extracorporeal shock wave lithotripsy; however, patient is morbidly obese weighing approximately 420 pounds, which exceeds the weight limit of the equipment, which is available in this area. Multiple attempts have been made to discuss with the patient and he has been referred to other specialists for possible flexible ureteroscopy and stone removal. Patient continues to complain of pain from the stent, which has been in for many months. The stent was recently changed as one time when the stent was removed, patient returned a few days later with florid life-threatening urosepsis. I have discussed this ad nauseam multiple times with the patient who is extremely noncompliant. He refuses to follow up with anyone for his urologic care, although it has been explained to him multiple times that there is absolutely nothing I can offer him at this time other than a stent change, which was just done. The patient reports last time that although he was given multiple names to follow up with that he has been unable to make appointments or get to see any of these physicians. He presents again today with the above complaints. LABORATORY EXAMINATION: Patient's urine has 15 to 20 rbc's, 5 to 10 wbc's, negative for nitrates. His GFR is greater than 60. His BNP is 1720. His serum WBC count is 10.9. He is afebrile with a temperature of 98. Patient had a CT scan of the abdomen and pelvis, which showed stable [id number] hydronephrosis on the left. There was some perinephric fluid and inflammatory change with a heterogeneous appearance to the left nephrogram. There is a nonobstructive left lower pole renal stone. There is a left-sided double-J stent in place. IMPRESSION AND PLAN: Urologically, not much to offer the patient. Stent was recently changed. We can plan on a renal scan to see if there is any obstruction, but this is highly doubtful. Patient is still morbidly obese and has not lost any weight. Therefore, he cannot have a shockwave lithotripsy. I would not remove the stent at this time as there is a very high probability that patient will return with urosepsis. Appears to have congestive heart failure once again with an elevated brain natriuretic peptide. Unclear if some of the pain has again related to his diverticular disease. I would continue treatment for his nausea and vomiting, intravenous fluids and intravenous antibiotics at this time, await the results of his urine and blood cultures. Kamari Love MD
[2018-01-22] MEDS: Sodium Chloride 0.9% 1,000 ML IV SCH ×2 (09:54→09:56)
--- NOTE | 2018-01-22 09:54 | CON ---
DATE: 01/20/2018 REASON FOR CONSULTATION: Abdominal pain, history of diverticulitis, pancreatitis, history of pyelonephritis. HISTORY OF PRESENT ILLNESS: This is a 37-year-old patient with history of morbid obesity, nonischemic cardiomyopathy, chronic pancreatitis, history of status post celiac block, history of recurrent diverticulitis, history of nephrolithiasis, status post stent before. Current urinary tract infection, pyelonephritis before, admitted with an abdominal pain and also hematuria and pain he described mainly in the left flank area. He had initially noticed two days ago blood per urine. Subsequently, he had worsening of the abdominal pain on the left side, he presented to the ER. The patient also developed nausea and also an abdominal discomfort, unable to keep food down. PAST MEDICAL HISTORY: Other past medical history is that of current admission for diverticulitis, history of microperforation of the diverticulum, history of recurrent urinary tract infection, nephrolithiasis, status post cholecystectomy, morbid obesity, chronic pancreatitis. ALLERGIES: NO KNOWN DRUG ALLERGIES. SOCIAL HISTORY: The patient still smokes, denies alcohol use. REVIEW OF SYSTEMS: Positive as above. Other systems reviewed. PHYSICAL EXAMINATION: GENERAL: The patient is lying on the bed, not in acute distress. VITAL SIGNS: Pulse 72 per minute, temperature is 98.3, blood pressure 141/84, respirations 18. HEENT: Atraumatic, anicteric. NECK: Supple. HEART: S1 and S2 heard. LUNGS: Bilateral air entry present. ABDOMEN: Soft. There is no mass palpable. Some tenderness present in the epigastric area, left lower quadrant and also left side back, loin area. EXTREMITIES: No edema or cyanosis. NEUROLOGICAL: Alert, oriented, moves all the extremities. No focal deficits. LABORATORY DATA: WBC 10.8, hemoglobin 15.6, hematocrit 46.3, platelets . The patient did have CT scan of the abdomen and pelvis with p.o. contrast, result reviewed, no obstruction noticed. No acute inflammatory changes noted. PLAN 1. We will continue the antibiotics. 2. Follow up with urine cytology. 3. The CAT scan was reviewed. Would recommend IMPRESSION: Rule out pyelonephritis, urinary tract infection, , pyelonephritis, . No significant ascitic fluid. History of chronic pancreatitis. Acute diverticulitis. The patient's CT showed some significant stranding, no obstruction. Impression is recurrent diverticulitis, the patient admitted with abdominal pain, left lower quadrant pain. Pending urological evaluation. The patient is on changing it to 3-4 months time. Advised regular medical followup with you. Thank you for allowing to participate in the care of this patient. Souleymane Choe MD MTDD
[2018-01-22] MEDS: Morphine 5 MG/ML SYRINGE IVP PRN ×3 (14:14→22:14)
[2018-01-22 16:35] VITALS: TEMP 97.7
--- NOTE | 2018-01-22 18:00 | PN ---
DATE: SUBJECTIVE: The patient is 37 years old, seen and examined. Still complain of left flank pain. No nausea, vomiting, or diarrhea. No fever. No chills. PHYSICAL EXAMINATION: VITAL SIGNS: He is afebrile, pulse 71, respirations 20, blood pressure 120/76. LUNGS: Bilateral fair airflow. No rhonchi or crackle. HEART: S1 and S2 audible. ABDOMEN: Soft, slight palpable left costophrenic angle discomfort. No rebound or guarding. NEUROLOGIC: The patient is awake and alert, able to communicate. ASSESSMENT AND PLAN: Left flank pain, questionable diverticulitis; however, he has CT, shows perinephric stranding, but the patient is afebrile, has no white count. I will order CBC and CMP for tomorrow and continue IV fluids. I will advance diet to low-fat diet and I will talk to Dr. Love. The patient's blood culture and urine cultures are negative. Discussed with Dr. Valentin. I will order for the procalcitonin and ESR, and CBC and CMP for tomorrow and we will make further recommendation after we have tomorrow's blood work and after I speak to Sammy Santiago MD
--- NOTE | 2018-01-22 18:07 | CP.PCM.PN ---
<Bobby Gamez - Last Filed: 01/22/18 18:04> Subjective - Date & Time of Evaluation Date of Evaluation: 01/22/18 Time of Evaluation: 09:20 - Subjective Subjective: GI progress note. Dr. Choe Pt seen and examined at bedside. No acute events overnight. No N/V/D. Still with mild abdominal pain. No F/C. Would like to advance diet. Objective - Vital Signs/Intake and Output Vital Signs (last 24 hours): Temp Pulse Resp BP Pulse Ox 97.7 F 74 20 111/64 98 01/22/18 14:00 01/22/18 14:00 01/22/18 14:00 01/22/18 14:00 01/22/18 14:00 Intake and Output: 01/22/18 01/22/18 06:59 18:59 Intake Total 1320 Output Total 700 Balance 620 - Medications Medications: Current Medications Carvedilol (Coreg) 12.5 mg PO BID [facility] Last Admin: 01/22/18 09:53 Dose: 12.5 mg Famotidine (Pepcid) 20 mg IVP DAILY [facility] Last Admin: 01/22/18 09:53 Dose: 20 mg Fentanyl (Duragesic) 1 patch TD Q72H [facility] Last Admin: 01/19/18 22:27 Dose: 1 patch Hydromorphone HCl (Dilaudid) 0.5 mg IVP Q3H PRN PRN Reason: Pain, severe (8-10) Last Admin: 01/22/18 09:53 Dose: 0.5 mg Meropenem (Merrem Iv 1 Gm Premix) 50 mls @ 100 mls/hr IVPB Q8 ELSIE PRN Reason: Protocol Last Admin: 01/22/18 14:15 Dose: 100 mls/hr Sodium Chloride (Sodium Chloride 0.9%) 1,000 mls @ 75 mls/hr IV .[id number] [facility] Last Admin: 01/22/18 09:56 Dose: 75 mls/hr Morphine Sulfate (Morphine) 5 mg IVP Q4H PRN PRN Reason: Pain, moderate (4-7) Last Admin: 01/22/18 14:14 Dose: 5 mg Ondansetron HCl (Zofran Inj) 4 mg IVP Q6H PRN PRN Reason: Nausea/Vomiting Last Admin: 01/22/18 01:24 Dose: 4 mg - Labs Labs: PT 12.6 SECONDS (9.4-12.5) H 01/19/18 02:00 INR 1.10 (0.93-1.08) H 01/19/18 02:00 - Constitutional Appears: Well, Non-toxic, No Acute Distress - Head Exam Head Exam: ATRAUMATIC, NORMAL INSPECTION, NORMOCEPHALIC - Eye Exam Eye Exam: EOMI, Normal appearance - ENT Exam ENT Exam: Mucous Membranes Moist - GI/Abdominal Exam GI & Abdominal Exam: Soft, Tenderness (mild LUQ, LLQ tenderness) - Neurological Exam Neurological Exam: Alert, Awake, Oriented x3 - Skin Skin Exam: Dry, Intact, Normal Color, Warm Assessment and Plan - Assessment and Plan (Free Text) Assessment: 37yo M with PMHx of recurrent diverticulitis with previous microperf, Recurrent UTIs and Renal stones, morbid obesity, Chronic pancreatitis here with left- sided pyelonephritis. Plan: - May advance diet as tolerated - Recommend outpatient colonoscopy in 2-3 weeks once acute symptoms have resolved - Pain management - IV Abx Further recs as per Dr. Дмитрий Gamez PGY1 <Souleymane Choe V - Last Filed: 01/22/18 23:49> Objective - Vital Signs/Intake and Output Vital Signs (last 24 hours): Temp Pulse Resp BP Pulse Ox 97.7 F 75 20 118/72 98 01/22/18 14:00 01/22/18 22:46 01/22/18 22:46 01/22/18 22:46 01/22/18 14:00 Intake and Output: 01/22/18 01/23/18 18:59 06:59 Intake Total 840 Output Total 600 Balance 240 - Medications Medications: Current Medications Carvedilol (Coreg) 12.5 mg PO BID [facility] Last Admin: 01/22/18 18:17 Dose: 12.5 mg Famotidine (Pepcid) 20 mg IVP DAILY [facility] Last Admin: 01/22/18 09:53 Dose: 20 mg Fentanyl (Duragesic) 1 patch TD Q72H [facility] Last Admin: 01/19/18 22:27 Dose: 1 patch Hydromorphone HCl (Dilaudid) 0.5 mg IVP Q3H PRN PRN Reason: Pain, severe (8-10) Last Admin: 01/22/18 09:53 Dose: 0.5 mg Meropenem (Merrem Iv 1 Gm Premix) 50 mls @ 100 mls/hr IVPB Q8 ELSIE PRN Reason: Protocol Last Admin: 01/22/18 22:14 Dose: 100 mls/hr Sodium Chloride (Sodium Chloride 0.9%) 1,000 mls @ 75 mls/hr IV .[id number] [facility]SIE Last Admin: 01/22/18 09:56 Dose: 75 mls/hr Morphine Sulfate (Morphine) 5 mg IVP Q4H PRN PRN Reason: Pain, moderate (4-7) Last Admin: 01/22/18 22:14 Dose: 5 mg Ondansetron HCl (Zofran Inj) 4 mg IVP Q6H PRN PRN Reason: Nausea/Vomiting Last Admin: 01/22/18 22:14 Dose: 4 mg - Labs Labs: PT 12.6 SECONDS (9.4-12.5) H 01/19/18 02:00 INR 1.10 (0.93-1.08) H 01/19/18 02:00 Attending/Attestation - Attestation I have personally seen and examined this patient.: Yes I have fully participated in the care of the patient.: Yes I have reviewed all pertinent clinical information, including history, physical exam and plan: Yes Notes (Text): This is an addendum to GI progress report dictated by the A&P Technician.The patient was seen and examined earlier. Medical records, lab studies, imagings were reviewed. Last 24 hours events reviewed. Agreed with the above treatment plan as outlined in A&P Technician 's notes the with the addition of the following 01/22/18 23:48
--- NOTE | 2018-01-22 18:20 | CP.PCM.PN ---
Subjective - Date & Time of Evaluation Date of Evaluation: 01/22/18 Time of Evaluation: 12:50 - Subjective Subjective: Still with left sided abdominal pain, no fevers, no diarrhea, eating better. Objective - Vital Signs/Intake and Output Vital Signs (last 24 hours): Temp Pulse Resp BP Pulse Ox 98 F 71 20 120/76 100 01/22/18 07:58 01/22/18 07:58 01/22/18 07:58 01/22/18 07:58 01/22/18 07:58 Intake and Output: 01/22/18 01/22/18 06:59 18:59 Intake Total 1320 Output Total 700 Balance 620 - Medications Medications: Current Medications Carvedilol (Coreg) 12.5 mg PO BID [facility] Last Admin: 01/21/18 19:37 Dose: 12.5 mg Famotidine (Pepcid) 20 mg IVP DAILY [facility] Last Admin: 01/21/18 09:25 Dose: 20 mg Fentanyl (Duragesic) 1 patch TD Q72H [facility] Last Admin: 01/19/18 22:27 Dose: 1 patch Hydromorphone HCl (Dilaudid) 0.5 mg IVP Q3H PRN PRN Reason: Pain, severe (8-10) Last Admin: 01/22/18 05:30 Dose: 0.5 mg Meropenem (Merrem Iv 1 Gm Premix) 50 mls @ 100 mls/hr IVPB Q8 ELSIE PRN Reason: Protocol Last Admin: 01/22/18 05:30 Dose: 100 mls/hr Sodium Chloride (Sodium Chloride 0.9%) 1,000 mls @ 75 mls/hr IV .[id number] [facility] Last Admin: 01/21/18 04:28 Dose: 75 mls/hr Morphine Sulfate (Morphine) 5 mg IVP Q4H PRN PRN Reason: Pain, moderate (4-7) Last Admin: 01/21/18 15:18 Dose: 5 mg Ondansetron HCl (Zofran Inj) 4 mg IVP Q6H PRN PRN Reason: Nausea/Vomiting Last Admin: 01/22/18 01:24 Dose: 4 mg - Labs Labs: PT 12.6 SECONDS (9.4-12.5) H 01/19/18 02:00 INR 1.10 (0.93-1.08) H 01/19/18 02:00 - Constitutional Appears: Chronically Ill - Head Exam Head Exam: NORMAL INSPECTION - Neck Exam Neck Exam: absent: Meningismus - Respiratory Exam Respiratory Exam: absent: Rales - Cardiovascular Exam Cardiovascular Exam: +S1, +S2 - GI/Abdominal Exam GI & Abdominal Exam: Soft. absent: Tenderness Assessment and Plan - Assessment and Plan (Free Text) Plan: Assessment consider left sided perinephric abscess with left sided pyelonephritis history of acute sigmoid diverticulitis history of severe sepsis with probable left sided pyelonephritis with obstructing left ureteral calculus S/P cystoscopy, placement of left pigtail stent morbid obesity with BMI 49 HTN alcoholic cardiomyopathy history of pancreatitis history of kidney stones Plan continue Merrem day 4; blood and urine cx are negative; follow up Urology recommendations regarding the perinephric fluid collection discussed with Dr. Santiago will continue to monitor clinically
[2018-01-23] MEDS: Morphine 5 MG/ML SYRINGE IVP PRN ×2 (02:34→06:10)
[2018-01-23] MEDS: Sodium Chloride 0.9% 1,000 ML IV SCH (03:46)
[2018-01-23] MEDS: Meropenem IV 1 gm in NS 50 ML IVPB SCH ×2 (06:09→13:48)
[2018-01-23 07:23] LABS: BASO # 0.02 K/mm3 (0.0-2.0); BASO % 0.3 % (0.0-3.0); EOS # 0.2 (0.0-0.7); EOS % 2.1 % (1.5-5.0); GRAN # 4.15 (1.4-6.5); GRAN % 58.4 % (50.0-68.0); HEMOGLOBIN 12.6 g/dL (14.0-18.0); LYMPH % 27.7 % (22.0-35.0); MEAN CORPUSCULAR HEMOGLOBIN 31.1 pg (25.0-35.0); MEAN CORPUSCULAR HGB CONC 32.4 g/dl (31.0-37.0); MEAN PLATELET VOLUME 9.8 fl (7.0-11.0); MONO # 0.8 (0.1-0.6); MONO % 11.5 % (1.0-6.0); RBC 4.05 10^6/uL (3.5-6.1); RED CELL DISTRIBUTION WIDTH 14.4 % (11.5-14.5); WHITE BLOOD COUNT 7.1 10^3/ul (4.5-11.0)
[2018-01-23 08:06] LABS: ALBUMIN 3.5 g/dL (3.0-4.8); ALT/SGPT 15 U/L (7-56); AST/SGOT 18 U/L (17-59); BLOOD UREA NITROGEN 10 mg/dL (7-21); CALCIUM 9.2 mg/dL (8.4-10.5); GFR AFRICAN-AMERICAN > 60; GFR NON-AFRICAN AMERICAN > 60
[2018-01-23 08:19] VITALS: O2SAT 95
[2018-01-23] MEDS: HYDROmorphone 0.5 mg/0.5 ml ISec IVP PRN ×2 (10:05→13:53)
[2018-01-23 10:10] VITALS: BP 142/76; PULSE 64
--- NOTE | 2018-01-23 10:59 | CP.PCM.PN ---
Subjective - Date & Time of Evaluation Date of Evaluation: 01/23/18 Time of Evaluation: 10:30 - Subjective Subjective: GI Progress note. Dr. Choe Pt seen and examined at bedside. No acute events overnight. Still c/o abdominal , left flank pain. No F/C. Tolerating diet but reports decreased intake. No new complaints. Objective - Vital Signs/Intake and Output Vital Signs (last 24 hours): Temp Pulse Resp BP Pulse Ox 97.7 F 64 20 142/76 95 01/23/18 08:18 01/23/18 10:05 01/23/18 08:18 01/23/18 10:05 01/23/18 08:18 Intake and Output: 01/23/18 01/23/18 06:59 18:59 Intake Total 1320 Output Total 1000 Balance 320 - Medications Medications: Current Medications Carvedilol (Coreg) 12.5 mg PO BID [facility] Last Admin: 01/23/18 10:05 Dose: 12.5 mg Famotidine (Pepcid) 20 mg PO DAILY [facility] Fentanyl (Duragesic) 1 patch TD Q72H [facility] Last Admin: 01/23/18 04:05 Dose: 1 patch Hydromorphone HCl (Dilaudid) 0.5 mg IVP Q3H PRN PRN Reason: Pain, severe (8-10) Last Admin: 01/23/18 10:05 Dose: 0.5 mg Meropenem (Merrem Iv 1 Gm Premix) 50 mls @ 100 mls/hr IVPB Q8 [facility] PRN Reason: Protocol Last Admin: 01/23/18 06:09 Dose: 100 mls/hr Sodium Chloride (Sodium Chloride 0.9%) 1,000 mls @ 75 mls/hr IV .[id number] [facility] Last Admin: 01/23/18 03:46 Dose: 75 mls/hr Morphine Sulfate (Morphine) 5 mg IVP Q4H PRN PRN Reason: Pain, moderate (4-7) Last Admin: 01/23/18 06:10 Dose: 5 mg Ondansetron HCl (Zofran Inj) 4 mg IVP Q6H PRN PRN Reason: Nausea/Vomiting Last Admin: 01/23/18 06:10 Dose: 4 mg - Labs Labs: 01/23/18 07:00 01/23/18 07:00 PT 12.6 SECONDS (9.4-12.5) H 01/19/18 02:00 INR 1.10 (0.93-1.08) H 01/19/18 02:00 - Constitutional Appears: Well, Non-toxic, No Acute Distress - Head Exam Head Exam: ATRAUMATIC, NORMAL INSPECTION, NORMOCEPHALIC - Eye Exam Eye Exam: EOMI, Normal appearance - ENT Exam ENT Exam: Mucous Membranes Moist - Respiratory Exam Respiratory Exam: NORMAL BREATHING PATTERN. absent: Accessory Muscle Use, Respiratory Distress - Cardiovascular Exam Cardiovascular Exam: RRR. absent: JVD - GI/Abdominal Exam GI & Abdominal Exam: Soft. absent: Firm, Guarding, Rebound Additional comments: mild left lower quadrant tenderness to palpation. Soft, no rebound, no guarding. no peritoneal signs - Neurological Exam Neurological Exam: Alert, Awake, Oriented x3 - Skin Skin Exam: Dry, Intact, Normal Color, Warm Assessment and Plan - Assessment and Plan (Free Text) Assessment: 37yo M with PMHx of recurrent diverticulitis with hx of microperf, Recurrent UTIs and Renal stones, morbid obesity, Chronic pancreatitis here with left- sided pyelonephritis. Plan: - Continue current diet. Consider low residue - Recommend outpatient colonoscopy in 2-3 weeks once acute symptoms have resolved. Follow up with Dr. Choe in office. - Pain management - Abx as per ID team Further recs as per Dr. Дмитрий Gamez PGY1
--- NOTE | 2018-01-23 22:51 | PN ---
DATE: 01/23/2018 SUBJECTIVE: Patient is in bed, in no acute distress, was seen early this morning in room 573, bed 3. The patient has no fevers and chills. Pain is improved. PHYSICAL EXAMINATION: VITAL SIGNS: Temperature is 98, blood pressure is 120/80, respiratory rate 16. HEENT: Unremarkable. NECK: Supple. LUNGS: Have decreased breath sounds. HEART: Normal S1 and S2. ABDOMEN: Soft, nontender. LABORATORY EXAMINATION: Reveals a white count of 7.1, hemoglobin of 12, platelets of 271. Chemistries reveals a BUN of 10, creatinine of 1.3. Procalcitonin is less than 0.05 and urinalysis is noted and microbiology reveals the blood cultures are negative. ASSESSMENT AND PLAN: A 37-year-old male with left-sided perinephric abscess, left-sided pyelonephritis with a history of acute sigmoid diverticulitis; history of severe sepsis; probable left-sided pyelonephritis; obstructive left ureteral calculus, status post cystoscopy, placement of a pigtail stent; morbid obesity with body mass index of 49; hypertension; alcoholic cardiomyopathy; history of pancreatitis; history of kidney stones, on meropenem day #5; and serology on the case, we will follow. Roland Maria MD
--- NOTE | 2018-01-24 16:14 | DS ---
HISTORY OF PRESENT ILLNESS: The patient is a 37 years old, seen and examined, still complaining of left flank pain, but better than before, eating and tolerating. No nausea, vomiting. No diarrhea. No fever. No chills. PHYSICAL EXAMINATION: VITAL SIGNS: He is afebrile, pulse 70, respirations 20, blood pressure 142/76. LUNGS: Bilateral good airflow. No rhonchi or crackle. HEART: S1 and S2 audible. ABDOMEN: Soft, nontender, no rebound, no guarding. Slight ____ and left costophrenic angle discomfort. NEUROLOGIC: He is awake, alert, oriented, communicative. LABORATORY DATA: WBC 7.1, hemoglobin 12.6, hematocrit 38.9, and platelets of 271. Chemistries: Sodium 140, potassium 4.2, chloride 106, CO2 of 25. BUN 10, creatinine 1.3. Blood sugar of 84. Blood culture and urine cultures are negative. ASSESSMENT AND PLAN: 1. Questionable pyelonephritis, perinephric stranding, could be secondary to ureteral reflux that he has. 2. Status post ureteral stent placement. 3. Nephrolithiasis. 4. Recurrent pancreatitis, stable. 5. Status post cholecystectomy. 6. Hypertension. 7. Non-ischemic cardiomyopathy. 8. History of alcohol abuse in remote past. PLAN: The patient is going to be discharged home today. He was given prescription for 1 week of painkillers. He will follow with pain management. He will follow up with Dr. Love as outpatient. I spoke to Dr. Love and in his opinion, if he drops his weight from 390 to 370, we can get external shock wave lithotripsy because of upper limit for that table is 370 and the patient is 390 pounds, so that can be done once the patient lose some weight. Otherwise, he will get stent replaced every month. The patient was also given option of intraureteral lithotripsy, but for that there is no equipment available in [place]. He was referred to [place] for that procedure, but the patient said he has no means to go to [place]. Sammy Santiago MD [facility] # [id number]
== END 2018-01-23 18:26 | disposition home or self-care (01) | DRG 690 ==
LOC: ED 01:16 → ERH 09:05 → 5RSO 10:49
PROVIDERS: ADMIT Internal Medicine; ATTEND Internal Medicine
DX: N12 Tubulo-interstitial nephritis, not specified as acute or chronic (principal); K57.32 Diverticulitis of large intestine without perforation or abscess without bleeding; N20.1 Calculus of ureter; I42.6 Alcoholic cardiomyopathy; K86.1 Other chronic pancreatitis; Z68.42 Body mass index [BMI] 45.0-49.9, adult; I13.0 Hypertensive heart and chronic kidney disease with heart failure and stage 1 through stage 4 chronic kidney disease, or unspecified chronic kidney disease; I50.9 Heart failure, unspecified; I48.91 Unspecified atrial fibrillation; N18.9 Chronic kidney disease, unspecified; E86.0 Dehydration; F17.200 Nicotine dependence, unspecified, uncomplicated; N13.30 Unspecified hydronephrosis; E66.01 Morbid (severe) obesity due to excess calories; E78.5 Hyperlipidemia, unspecified; G47.30 Sleep apnea, unspecified; K21.9 Gastro-esophageal reflux disease without esophagitis; K76.9 Liver disease, unspecified; Z87.440 Personal history of urinary (tract) infections; Z86.19 Personal history of other infectious and parasitic diseases; Z79.02 Long term (current) use of antithrombotics/antiplatelets; Z87.442 Personal history of urinary calculi

== ENCOUNTER 2018-04-24 09:33 | Inpatient (IN) | payer BC ==
[2018-04-24 09:34] VITALS: PULSE 95
[2018-04-24 09:37] VITALS: BMI 57.4
--- NOTE | 2018-04-24 09:56 | ED PDOC ---
Arrival/HPI - General Time Seen by Provider: 04/24/18 09:55 Historian: Patient - History of Present Illness Narrative History of Present Illness (Text): 04/24/18 10:00 37 year old male, whose PMH includes non ischemic cardiomyopathy, pancreatitis, renal failure and kidney stones, who presents to the emergency department complaining of mid-sternal chest pain, associated with shortness of breath that has become worse. Patient reports also having cough with white sputum and swelling on bilateral lower extremities. Patient states symptoms have become worse with movement, such as walking. He notes being given a full dose of Aspirin on route to the emergency department. Patient denies fever, nausea, vomiting, diarrhea, neck pain, or other complaints. Processing Spec: Dr. Lynch Time/Duration: < week Symptom Onset: Gradual Symptom Course: Worsening Context: Home Past Medical History - Provider Review Nursing Documentation Reviewed: Yes - Past History Past History: Non-Contributing - Infectious Disease Hx of Infectious Diseases: None - Tetanus Immunization Tetanus Immunization: Unknown - Cardiac Hx Pacemaker: No - Pulmonary Hx Respiratory Disorders: Yes Hx Sleep Apnea: Yes - Neurological Hx Paralysis: No - HEENT Hx HEENT Disorder: No - Renal Hx Renal Disorder: Yes (hydronephrosis, L ureteral pigtail stent) Hx Kidney Stones: Yes Hx Renal Failure: Yes - Endocrine/Metabolic Hx Endocrine Disorders: No - Hematological/Oncological Hx Blood Transfusions: No Hx Blood Transfusion Reaction: No - Integumentary Hx Dermatological Disorder: No - Musculoskeletal/Rheumatological Hx Musculoskeletal Disorders: No - Gastrointestinal Hx Gastroesophageal Reflux: Yes - Genitourinary/Gynecological Hx Genitourinary Disorders: Yes (urinary retention) Hx Urinary Tract Infection: Yes - Psychiatric Hx Emotional Abuse: No Hx Physical Abuse: No Hx Substance Use: No - Past Surgical History Past Surgical History: No Previous - Surgical History Hx Cholecystectomy: Yes - Anesthesia Hx Anesthesia Reactions: Yes (NAUSEA) Hx Malignant Hyperthermia: No - Suicidal Assessment Feels Threatened In Home Enviroment: No Family/Social History - Physician Review Nursing Documentation Reviewed: Yes Family/Social History: No Known Family HX Smoking Status: Current Some Days Smoker Hx Alcohol Use: Yes (PAST ETOH;"NONE SINCE PANCREATITIS") Hx Substance Use: No Hx Substance Use Treatment: No Allergies/Home Meds Allergies/Adverse Reactions: Allergies LUZ Inhibitors Allergy (Severe, Verified 12/13/17 10:34) ANGIOEDEMA Home Medications: Home Meds Medication Instructions Recorded Confirmed Carvedilol [Coreg] 12.5 mg PO BID 08/06/17 04/24/18 Famotidine [Pepcid] 20 mg PO DAILY 08/06/17 04/24/18 Furosemide [Lasix] 40 mg PO BID 08/06/17 04/24/18 Spironolactone [Aldactone] 25 mg PO DAILY 08/06/17 04/24/18 Amylase/Lipase/Protease [Pancrease 3 tab PO AC 12/13/17 04/24/18 22911 U-5000 [id number] U] Metoclopramide [Reglan] 10 mg PO PRN PRN 12/13/17 04/24/18 Review of Systems - Physician Review All systems were reviewed & negative as marked: Yes - Review of Systems Constitutional: absent: Fevers ENT: absent: Sinus Congestion Respiratory: SOB, Cough, Sputum Cardiovascular: Chest Pain Gastrointestinal: absent: Abdominal Pain, Vomiting Genitourinary Male: absent: Dysuria Musculoskeletal: absent: Back Pain Skin: absent: Rash Neurological: absent: Headache Endocrine: Diaphoresis Psychiatric: absent: Anxiety Physical Exam - Physical Exam Narrative Physical Exam (Text): 04/24/18 Constitutional: No acute distress. Head: Normocephalic. Atraumatic. Eyes: PERRL. ENT: Moist mucous membranes. Neck: Supple. Cardiovascular: Regular rate. Chest: No tenderness. Respiratory: (+) crackles bilaterally. GI: Soft. Nontender. Nondistended. Back: No CVA tenderness. Musculoskeletal: (+) bilateral pedal edema on lower extremities Skin: No rash. Neurologic: Alert, no focal deficit. Vital Signs Reviewed: Yes Vital Signs Temp Pulse Resp BP Pulse Ox 04/24/18 10:11 115/74 04/24/18 09:34 97.9 F 87 18 115/74 91 L Temperature: Afebrile Blood Pressure: Normal Pulse: Regular Respiratory Rate: Normal Appearance: Positive for: Well-Appearing, Non-Toxic, Comfortable Pain Distress: None Mental Status: Positive for: Alert and Oriented X 3 Medical Decision Making ED Course and Treatment: 04/24/18 Impression: 37 year old male with bilateral crackles and pedal edema complaining of shortness of breath and chest pain Plan: -- EKG -- Chest X-ray -- Labs -- Lasix -- Reassess and disposition Progress Notes: EKG: Ordered, reviewed, and independently interpreted the EKG. Rate : 112 BPM Rhythm : Atrial fibrillation Interpretation : No ST-segment elevations or depressions, no T-wave inversions, normal intervals. 04/24/18 10:50 Chest X-ray: Creator : Johny Gee MD FINDINGS: LUNGS: Examination technically limited due to patient body habitus. The lung apices are also obscured by the patient's mandible. PLEURA: No significant pleural effusion identified, no pneumothorax apparent. CARDIOVASCULAR: Cardiomegaly. This may be, in part, artifactual due to portable technique. . OSSEOUS STRUCTURES: No significant abnormalities. VISUALIZED UPPER ABDOMEN: Normal. OTHER FINDINGS: None. IMPRESSION: No active disease. Limited examination. Dr. Santiago accepts patient to her service with Dr. Thomson on consultation. - Lab Interpretations Lab Results: 04/24/18 10:00 04/24/18 10:00 Lab Results 04/24/18 10:00: Sodium 141, Potassium 4.8, Chloride 105, Carbon Dioxide 25, Anion Gap 15, BUN 41 H, Creatinine 1.4, Est GFR ( Amer) > 60, Est GFR ( Non-Af Amer) 56, Random Glucose 131 H, Calcium 9.4, Total Bilirubin 0.9, AST 27 , ALT 25, Alkaline Phosphatase 74, Lactate Dehydrogenase 618, Total Creatine Kinase 98, Troponin I 0.04 D, NT-Pro-B Natriuret Pep 2220 H, Total Protein 7.6 , Albumin 4.0, Globulin 3.6, Albumin/Globulin Ratio 1.1, Lipase 129 04/24/18 10:00: PT 13.8 H, INR 1.20 H, APTT 32.0 04/24/18 10:00: WBC 11.2 H D, RBC 4.20, Hgb 13.5 L, Hct 40.6 L, MCV 96.7, MCH 32.1, MCHC 33.3, RDW 15.2 H, Plt Count 307, MPV 9.9, Gran % 69.6 H, Lymph % ( Auto) 19.5 L, [place] % (Auto) 9.5 H, Eos % (Auto) 1.2 L, Baso % (Auto) 0.2, Gran # 7.79 H, Lymph # (Auto) 2.2, [place] # (Auto) 1.1 H, Eos # (Auto) 0.1, Baso # ( Auto) 0.02 I have reviewed the lab results: Yes - RAD Interpretation Radiology Orders: 04/24/18 10:03 CHEST PORTABLE [RAD] Stat Manager College: Radiologist - EKG Interpretation Interpreted by ED Physician: Yes Type: 12 lead EKG - Medication Orders Current Medication Orders: Discontinued Medications Furosemide (Lasix) 80 mg IVP STAT STA Stop: 04/24/18 10:04 Last Admin: 04/24/18 10:11 Dose: 80 mg MAR Blood Pressure Document 04/24/18 10:11 SRE (Rec: 04/24/18 10:13 [id number] [id number]) Blood Pressure Blood Pressure (100/60-150/90) 115/74 IVP Administration Document 04/24/18 10:11 SRE (Rec: 04/24/18 10:13 SRE [id number]) Charges for Administration # of IVP Administrations 1 - Scribe Statement The provider has reviewed the documentation as recorded by the Jose A Napoles Provider Scribe Attestation: All medical record entries made by the Scribe were at my direction and personally dictated by me. I have reviewed the chart and agree that the record accurately reflects my personal performance of the history, physical exam, medical decision making, and the department course for this patient. I have also personally directed, reviewed, and agree with the discharge instructions and disposition. Disposition/Present on Arrival - Present on Arrival Any Indicators Present on Arrival: No History of DVT/PE: No History of Uncontrolled Diabetes: No Urinary Catheter: No History Surgical Site Infection Following: None - Disposition Have Diagnosis and Disposition been Completed?: Yes Diagnosis: CHF exacerbation Disposition: HOSPITALIZED Disposition Time: 10:56 Patient Plan: Admission, Telemetry Condition: GUARDED Discharge Instructions (ExitCare): Heart Failure (ED)
[2018-04-24 10:23] LABS: BASO # 0.02 K/mm3 (0.0-2.0); BASO % 0.2 % (0.0-3.0); EOS # 0.1 (0.0-0.7); EOS % 1.2 % (1.5-5.0); GRAN # 7.79 (1.4-6.5); GRAN % 69.6 % (50.0-68.0); HEMOGLOBIN 13.5 g/dL (14.0-18.0); LYMPH # 2.2 (1.2-3.4); LYMPH % 19.5 % (22.0-35.0); MEAN CELL VOLUME 96.7 fl (80.0-105.0); MEAN CORPUSCULAR HEMOGLOBIN 32.1 pg (25.0-35.0); MEAN CORPUSCULAR HGB CONC 33.3 g/dl (31.0-37.0); MEAN PLATELET VOLUME 9.9 fl (7.0-11.0); MONO # 1.1 (0.1-0.6); MONO % 9.5 % (1.0-6.0); RBC 4.2 10^6/uL (3.5-6.1); RED CELL DISTRIBUTION WIDTH 15.2 % (11.5-14.5); WHITE BLOOD COUNT 11.2 10^3/ul (4.5-11.0)
[2018-04-24 10:31] LABS: ALB/GLOB RATIO 1.1 (1.1-1.8); ALT/SGPT 25 U/L (7-56); AST/SGOT 27 U/L (17-59); BLOOD UREA NITROGEN 41 mg/dL (7-21); CALCIUM 9.4 mg/dL (8.4-10.5); GFR AFRICAN-AMERICAN > 60; GFR NON-AFRICAN AMERICAN 56; LIPASE 129 U/L (23-300)
[2018-04-24 10:36] LABS: PROTHROMBIN TIME 13.8 SECONDS (9.4-12.5)
[2018-04-24 10:37] LABS: INR 1.2 (0.93-1.08)
[2018-04-24 10:41] LABS: B-TYPE NATRIURETIC PEPTIDE 2220 pg/mL (0-450); TROPONIN I 0.04 ng/mL
--- NOTE | 2018-04-24 10:49 | RAD ---
Date of service: 04/24/2018 HISTORY: dyspnea COMPARISON: No prior. FINDINGS: LUNGS: Examination technically limited due to patient body habitus. The lung apices are also obscured by the patient's mandible. PLEURA: No significant pleural effusion identified, no pneumothorax apparent. CARDIOVASCULAR: Cardiomegaly. This may be, in part, artifactual due to portable technique. . OSSEOUS STRUCTURES: No significant abnormalities. VISUALIZED UPPER ABDOMEN: Normal. OTHER FINDINGS: None. IMPRESSION: No active disease. Limited examination.
[2018-04-24] MEDS ORDERED: Pneumococcal 23-Valent Vaccine IM ONE (14:57)
--- NOTE | 2018-04-24 16:21 | CARD ---
APPROVED REPORT Date of service: 04/24/2018 EKG Measurement Heart [id number] <Conclusion> Poor data quality, interpretation may be adversely affected Atrial fibrillation with rapid ventricular response with premature ventricular or aberrantly conducted complexes Cannot rule out Anterior infarct, age undetermined T wave abnormality, consider lateral ischemia or digitalis effect Abnormal ECG
[2018-04-24] MEDS: Amylase/Lipase/Protease 5,000 Units ECC PO SCH (17:19)
[2018-04-24] MEDS ORDERED: HYDROmorphone 0.5 mg/0.5 ml ISec IVP STA (22:30)
--- NOTE | 2018-04-24 23:35 | HP ---
HISTORY OF PRESENT ILLNESS: The patient is 37 years old came to emergency room because of increasing shortness of breath and some chest pressure associated with dizziness, has been going on for last 2 to 3 days, got worse today. He does have scanty cough with whitish phlegm. No history of fever or chills. No hemoptysis. Complained of bilateral leg swelling. Denies any nausea or vomiting. Denies any abdominal pain. PAST MEDICAL HISTORY: Significant for; 1. Recurrent pancreatitis. 2. Nonischemic cardiomyopathy. 3. Nephrolithiasis leading to hydronephrosis and had stent placed in the left ureter. Has multiple episode of UTI and pyelonephritis. ALLERGIES: ALLERGIC TO LUZ INHIBITORS. MEDICATIONS AT HOME. He is spirolactone 25 mg daily, Reglan 10 mg t.i.d. p.r.n. He is on Dilaudid 2 mg three times a day, Lasix 40 mg twice a day, Pepcid 20 mg daily, Coreg 12.5 twice a day, Eliquis 2.5 b.i.d. He is on pancreatic enzyme. SOCIAL HISTORY: He is single. Lives with his parents. Denies drinking. He used to be heavy drinker in the past and has stopped drinking since he started to have pancreatitis. He used to be heavy smoker, but now he smokes here and there. REVIEW OF SYSTEMS: Significant for shortness of breath and chest discomfort. PHYSICAL EXAMINATION: GENERAL: He is awake, alert, oriented, and communicative. VITAL SIGNS: He is afebrile. Pulse 87, respirations 18, blood pressure 115/74, and pulse ox 91% on room air. LUNGS: Bilateral fair airflow. No rhonchi or crackles. Diffuse soft crackle at bases. HEART: S1, S2 audible. ABDOMEN: Soft, obese, and nontender. No rebound. No guarding. NEUROLOGIC: He is awake, alert, oriented, and communicative. EXTREMITIES: Bilateral legs, +2 edema. LABORATORY EXAM: WBC 11.2, hemoglobin 13.5, hematocrit 40.6, and platelets 307. PT 13.8, INR 1.2. Chemistry: Sodium 141, potassium 4.8, chloride 105, CO2 of 25. BUN 41, creatinine 1.4. Blood sugar of 131. BNP 2220. LFTs are within normal limits. Had x-ray of chest done that shows venous congestion. ASSESSMENT: 1. Congestive heart failure. 2. Nonischemic cardiomyopathy. 3. History of recurrent pancreatitis. 4. Bilateral leg edema. 5. History of hydronephrosis. PLAN: Patient will be admitted on Telemetry. We will start him on diuretics. We will resume his medications. Follow up electrolytes. Cardiology consult by Dr. Thomson has been requested. Sammy Santiago MD
--- NOTE | 2018-04-25 04:19 | CP.PCM.PN ---
Addendum entered and electronically signed by Kevin Bojorquez, 04/25/18 06 :05: Addendum to HPI and Plan. Patient was seen and evaluated for chest pain rating it an 8/10 in the sternal area with no radiation. Pain was reproducible upon palpation, to the point patient initially did not want me to palpate. Patient states this is the chest pain he usually has an has been experiencing since he was admitted and is relieved with dilaudid. Vitals at the time were stable with BP 129/95, HR 85, 99 % O2 on NC 2L. Plan -Dilaudid and nitroglycerin SL relieved smyptoms -EKG; unchanged from previous EKG -Troponin 0.04 at 18:55 and 22:45 Original Note: <Kevin Bojorquez - Last Filed: 04/25/18 04:15> Subjective - Date & Time of Evaluation Date of Evaluation: 04/25/18 Time of Evaluation: 20:00 - Subjective Subjective: Progress note for House physician, Dr. Nixon Patient seen and evaluated at bedside in no acute distress stating he had severe pain which is chronic and normally relieved with dilaudid. Patient was given dilaudid and nitroglycerin SL which relieved his symptoms. Repeat troponin remains unchanged. -Will continue to monitor patient for further complaints Objective - Vital Signs/Intake and Output Vital Signs (last 24 hours): Temp Pulse Resp BP Pulse Ox 98.2 F 85 20 129/95 H 99 04/25/18 00:01 04/25/18 00:01 04/25/18 00:01 04/25/18 00:01 04/25/18 00:01 Intake and Output: 04/24/18 04/25/18 18:59 06:59 Intake Total 1150 Output Total 1750 Balance -600 - Medications Medications: Current Medications Amylase (Pancrease 97730 U-5000 U-[id number] U) 15,000 unit PO AC [facility] Last Admin: 04/24/18 17:19 Dose: 15,000 unit Apixaban (Eliquis) 2.5 mg PO BID [facility] PRN Reason: Protocol Last Admin: 04/24/18 17:19 Dose: 2.5 mg Carvedilol (Coreg) 12.5 mg PO BID [facility] Last Admin: 04/24/18 17:19 Dose: 12.5 mg Famotidine (Pepcid) 20 mg PO DAILY [facility] Last Admin: 04/24/18 13:02 Dose: 20 mg Furosemide (Lasix) 40 mg IVP BID [facility] Last Admin: 04/24/18 17:19 Dose: 40 mg Hydromorphone HCl (Dilaudid) 2 mg PO TID PRN PRN Reason: Pain, moderate (4-7) Last Admin: 04/24/18 17:21 Dose: 2 mg Spironolactone (Aldactone) 25 mg PO DAILY [facility] Last Admin: 04/24/18 13:02 Dose: 25 mg - Labs Labs: PT 13.8 SECONDS (9.4-12.5) H 04/24/18 10:00 INR 1.20 (0.93-1.08) H 04/24/18 10:00 APTT 32.0 Seconds (25.1-36.5) 04/24/18 10:00 <Aura Nixon - Last Filed: 04/25/18 07:14> Objective - Vital Signs/Intake and Output Vital Signs (last 24 hours): Temp Pulse Resp BP Pulse Ox 98.2 F 94 H 20 129/95 H 99 04/25/18 00:01 04/25/18 02:00 04/25/18 00:01 04/25/18 00:01 04/25/18 00:01 Intake and Output: 04/25/18 04/25/18 06:59 18:59 Intake Total 2100 Output Total 2000 Balance 100 - Medications Medications: Current Medications Amylase (Pancrease 68986 U-5000 U-21041 U) 15,000 unit PO AC [facility] Last Admin: 04/24/18 17:19 Dose: 15,000 unit Apixaban (Eliquis) 2.5 mg PO BID [facility] PRN Reason: Protocol Last Admin: 04/24/18 17:19 Dose: 2.5 mg Carvedilol (Coreg) 12.5 mg PO BID [facility] Last Admin: 04/24/18 17:19 Dose: 12.5 mg Famotidine (Pepcid) 20 mg PO DAILY [facility] Last Admin: 04/24/18 13:02 Dose: 20 mg Furosemide (Lasix) 40 mg IVP BID [facility] Last Admin: 04/24/18 17:19 Dose: 40 mg Hydromorphone HCl (Dilaudid) 2 mg PO TID PRN PRN Reason: Pain, moderate (4-7) Last Admin: 04/24/18 17:21 Dose: 2 mg Spironolactone (Aldactone) 25 mg PO DAILY [facility] Last Admin: 04/24/18 13:02 Dose: 25 mg - Labs Labs: 04/25/18 06:15 04/25/18 06:15 PT 13.8 SECONDS (9.4-12.5) H 04/24/18 10:00 INR 1.20 (0.93-1.08) H 04/24/18 10:00 APTT 32.0 Seconds (25.1-36.5) 04/24/18 10:00 Attending/Attestation - Attestation I have personally seen and examined this patient.: Yes I have fully participated in the care of the patient.: Yes I have reviewed all pertinent clinical information, including history, physical exam and plan: Yes Notes (Text): 04/25/18 07:01 Pt was seen by the Resident,also by me. He does admit to chronic chest pain.Current pain is no different from before. His VS have been stable. Lungs :BS are distant Cor S1 S2 irregular Ext Bilateral pitting pedal edema noted. IMP: chest pain CHF Afib PLAN:pt was treated with Lasix,Dilaudid and NTG SL 04/25/18 07:07
[2018-04-25 06:39] LABS: BASO # 0.01 K/mm3 (0.0-2.0); BASO % 0.1 % (0.0-3.0); EOS # 0.2 (0.0-0.7); EOS % 2.4 % (1.5-5.0); GRAN # 5.4 (1.4-6.5); GRAN % 61.1 % (50.0-68.0); HEMOGLOBIN 12.9 g/dL (14.0-18.0); LYMPH # 2.1 (1.2-3.4); LYMPH % 23.8 % (22.0-35.0); MEAN CELL VOLUME 96.3 fl (80.0-105.0); MEAN CORPUSCULAR HEMOGLOBIN 31.7 pg (25.0-35.0); MEAN CORPUSCULAR HGB CONC 32.9 g/dl (31.0-37.0); MEAN PLATELET VOLUME 9.9 fl (7.0-11.0); MONO # 1.1 (0.1-0.6); MONO % 12.6 % (1.0-6.0); RBC 4.07 10^6/uL (3.5-6.1); RED CELL DISTRIBUTION WIDTH 15.2 % (11.5-14.5)
[2018-04-25 06:45] LABS: WHITE BLOOD COUNT 8.8 10^3/ul (4.5-11.0)
[2018-04-25 06:55] LABS: ALBUMIN 3.8 g/dL (3.0-4.8); ALT/SGPT 34 U/L (7-56); AST/SGOT 38 U/L (17-59); BLOOD UREA NITROGEN 36 mg/dL (7-21); CALCIUM 8.7 mg/dL (8.4-10.5); GFR AFRICAN-AMERICAN > 60; GFR NON-AFRICAN AMERICAN 52
[2018-04-25 06:59] LABS: TROPONIN I 0.04 ng/mL
[2018-04-25 07:05] LABS: FREE T4 1.35 ng/dL (0.78-2.19)
[2018-04-25] MEDS: Amylase/Lipase/Protease 5,000 Units ECC PO SCH ×3 (08:09→17:37)
[2018-04-25] MEDS: Milrinone 20mg/100ml D5W 100 ML IV PRN ×4 (11:51→23:58)
[2018-04-25] MEDS: metOLazone 5 MG TAB PO SCH (12:14)
--- NOTE | 2018-04-25 14:29 | PN ---
DATE: 04/25/2018 REASON FOR CONSULTATION AND FOLLOWUP: Cardiac evaluation, admitted with shortness of breath, decompensated congestive heart failure. BRIEF CLINICAL HISTORY: This is a 37-year-old male, morbidly obese, with past medical history of recurrent pancreatitis, history of alcohol abuse, history of tobacco abuse, nonischemic cardiomyopathy, came in with complaint of shortness of breath during walking and gets short winded. Denies any chest pain. Denies any palpitation. Also, complaining of bilateral lower extremity swelling. Denies any nausea or vomiting. Denies any abdominal pain. PAST HISTORY: Significant for hypertension, morbid obesity, congestive heart failure, secondary to alcohol abuse in the past, history of non-ischemic cardiomyopathy, status post cardiac catheterization, recurrent pancreatitis, history of renal colic. PREVIOUS CARDIAC WORKUP: The patient had a cardiac catheterization 2 to 3 years ago at [facility], was told to have normal coronaries. SOCIAL HISTORY: Used to drink heavy alcohol, but claimed that he quit. Last time he drank when at the sister's wedding, just a glass of wine. History of tobacco abuse, he still smokes half a pack a day. History of multiple admissions in the past with the pancreatitis, secondary to alcohol abuse. Patient's last echo was done on 08/05/2017, that showed ejection fraction of 40%, RV systolic pressure of 18, trace mitral regurgitation, trace tricuspid regurgitation, moderately dilated left ventricle. Echo dated 08/05/2017. Last MUGA scan showed ejection fraction of 55%, dated 08/04/2017. Last echo as I mentioned dated 08/05/2017, ejection fraction 40%, trace mitral regurgitation, trace tricuspid regurgitation, RV systolic pressure 18. Multiple previous EKGs showed normal sinus, APCs. At this time, EKG shows atrial flutter and atrial fibrillation. CURRENT MEDICATIONS: The patient is taking spirolactone at home, metoclopramide, Dilaudid, Lasix, furosemide, Eliquis 2.5 b.i.d. IMPRESSION: This is a 37-year-old male with a past medical history significant for nonischemic cardiomyopathy; history of pancreatitis, recurrent, secondary to alcohol abuse; history of alcohol abuse in the past; history of tobacco abuse, active; paroxysmal atrial fibrillation; acute decompensated congestive heart failure; morbid obesity, and gaining weight. RECOMMENDATIONS: So far, troponin remains flat. No evidence of acute AL. Though creatine kinase is still troponin 0.04. We will get echo to assess LV function. Continue Primacor and continue aggressive diuresis. Resume back Eliquis. Overall, the patient's condition is critical. Long-term prognosis is extremely poor because of the noncompliance. We will follow up with you. I will put low dose of Zaroxolyn as well as the Primacor to get the diuresis. Strongly consider, the patient told about gastric bypass to reduce the weight for the long time beneficial effect. We will not put LUZ inhibitor because the patient is allergic to LUZ inhibitors, he gets swelling of the tongue, so will continue Coreg, though we will cut it down to 6.25 so that we can put more diuresis and put Primacor. We will follow up with you and get echo to assess LV function. Increase Lasix to three times a day. We will start Primacor 0.35 for a couple of days, 48 hours, to get the maximum benefit for diuresis. We will follow with you. Thank you, Dr. Santiago, for providing us the opportunity in taking care of the patient, Gareth Leblanc. Shayna Thomson MD
[2018-04-25] MEDS: HYDROmorphone 1 mg/ml ISec IVP PRN (17:37)
--- NOTE | 2018-04-25 18:09 | PN ---
DATE: 04/25/2018 SUBJECTIVE: The patient is a 37-year-old who was admitted because of increasing shortness of breath, complained of bilateral leg swelling. No fever, no chills, no nausea or vomiting, no diarrhea. PHYSICAL EXAMINATION VITAL SIGNS: The patient is afebrile, pulse 103, respirations 19, blood pressure 126/86. LUNGS: Bilateral fair airflow, decreased at bases. HEART: S1 and S2 audible. ABDOMEN: Soft, obese, nontender, no rebound, no guarding. NEUROLOGIC: The patient is awake, alert, oriented, communicative. LABORATORY DATA: WBC is 8.8, hemoglobin 12.9, hematocrit 39.2, and platelets 287. Chemistries: Sodium 136, potassium 4.3, chloride 99, CO2 of 28, BUN 36, creatinine 1.5, blood sugar of 107. LFTs are within normal limits. Four sets of troponin are negative. EKG shows atrial fibrillation with rapid ventricular response. ASSESSMENT: 1. Congestive heart failure exacerbation. 2. Nonischemic cardiomyopathy. 3. Morbid obesity. 4. History of alcohol abuse in the past. 5. Hypertension. 6. Hyperlipidemia. 7. Recurrent pancreatitis. 8. Nephrolithiasis. PLAN: The patient is currently on IV diuretics. He is getting spironolactone. He is on Coreg. I will continue him on Eliquis. He has been started on Primacor drip. We will follow up his electrolytes in the a.m. Sammy Santiago MD
--- NOTE | 2018-04-25 18:45 | CARD ---
APPROVED REPORT Date of service: 04/24/2018 EKG Measurement Heart [id number] <Conclusion> Atrial fibrillation with premature ventricular or aberrantly conducted complexes T wave abnormality, consider inferior ischemia or digitalis effect Prolonged QT Abnormal ECG
[2018-04-26] MEDS: HYDROmorphone 1 mg/ml ISec IVP PRN ×3 (02:01→20:55)
[2018-04-26] MEDS: Milrinone 20mg/100ml D5W 100 ML IV PRN ×3 (04:20→13:17)
[2018-04-26 06:57] LABS: BASO # 0.01 K/mm3 (0.0-2.0); BASO % 0.1 % (0.0-3.0); EOS # 0.3 (0.0-0.7); EOS % 3.2 % (1.5-5.0); GRAN # 5.71 (1.4-6.5); GRAN % 60.9 % (50.0-68.0); HEMOGLOBIN 13.5 g/dL (14.0-18.0); LYMPH # 2.1 (1.2-3.4); LYMPH % 22.7 % (22.0-35.0); MEAN CELL VOLUME 94.7 fl (80.0-105.0); MEAN CORPUSCULAR HEMOGLOBIN 31.4 pg (25.0-35.0); MEAN CORPUSCULAR HGB CONC 33.2 g/dl (31.0-37.0); MEAN PLATELET VOLUME 9.7 fl (7.0-11.0); MONO # 1.2 (0.1-0.6); MONO % 13.1 % (1.0-6.0); RBC 4.3 10^6/uL (3.5-6.1); RED CELL DISTRIBUTION WIDTH 14.9 % (11.5-14.5); WHITE BLOOD COUNT 9.4 10^3/ul (4.5-11.0)
[2018-04-26 07:25] LABS: ALB/GLOB RATIO 1.1 (1.1-1.8); ALBUMIN 3.9 g/dL (3.0-4.8); ALT/SGPT 27 U/L (7-56); AST/SGOT 19 U/L (17-59); BLOOD UREA NITROGEN 39 mg/dL (7-21); CALCIUM 9.1 mg/dL (8.4-10.5); GFR AFRICAN-AMERICAN > 60; GFR NON-AFRICAN AMERICAN > 60; HDL CHOLESTEROL 29 mg/dL (29-60)
[2018-04-26 07:32] LABS: LDL CHOLESTEROL 75 mg/dL (0-129)
[2018-04-26] MEDS: Amylase/Lipase/Protease 5,000 Units ECC PO SCH ×3 (08:15→17:03)
[2018-04-26] MEDS: metOLazone 5 MG TAB PO SCH (09:29)
--- NOTE | 2018-04-26 10:34 | CP.PCM.PN ---
Subjective - Date & Time of Evaluation Date of Evaluation: 04/26/18 Time of Evaluation: 06:05 - Subjective Subjective: Sleeping but easily awaken, denies shortness of breath, no distress Reason for consultation and follow up: Cardiac evaluation of chest pain, history of non ischemic cardiomyopathy, pancreatitis, renal failure and kidney stones. Seen and examined by me and Dr. Thomson Objective - Vital Signs/Intake and Output Vital Signs (last 24 hours): Temp Pulse Resp BP Pulse Ox 97.9 F 78 18 135/83 94 L 04/26/18 06:00 04/26/18 09:25 04/26/18 06:00 04/26/18 09:22 04/26/18 06:00 Intake and Output: 04/26/18 04/26/18 06:59 18:59 Intake Total 1260 100 Output Total 1450 Balance -190 100 - Medications Medications: Current Medications Amylase (Pancrease 01091 U-5000 [id number] U) 15,000 unit PO AC [facility] Last Admin: 04/26/18 08:15 Dose: 15,000 unit Apixaban (Eliquis) 5 mg PO BID [facility] Last Admin: 04/26/18 09:28 Dose: 5 mg Carvedilol (Coreg) 12.5 mg PO BID [facility] Last Admin: 04/26/18 09:25 Dose: 12.5 mg Famotidine (Pepcid) 20 mg PO DAILY [facility] Last Admin: 04/26/18 09:25 Dose: 20 mg Furosemide (Lasix) 40 mg IVP TID [facility] Last Admin: 04/26/18 09:22 Dose: 40 mg Hydromorphone HCl (Dilaudid) 1 mg IVP Q8H PRN PRN Reason: Pain, severe (8-10) Last Admin: 04/26/18 02:01 Dose: 1 mg Milrinone Lactate/Dextrose (Primacor 20mg/100ml D5w) 100 mls @ 23.259 mls/hr IV .Q4H18M PRN; Protocol; 0.375 MCG/KG/MIN PRN Reason: TITRATE PER MD ORDER Stop: 04/27/18 07:00 Last Admin: 04/26/18 09:26 Dose: 0.375 mcg/kg/min, 23.259 mls/hr Ibuprofen (Motrin Tab) 400 mg PO Q6H PRN PRN Reason: Pain, moderate (4-7) Metolazone (Zaroxolyn) 5 mg PO DAILY [facility] Last Admin: 04/26/18 09:29 Dose: 5 mg Spironolactone (Aldactone) 25 mg PO DAILY [facility] Last Admin: 04/26/18 09:28 Dose: 25 mg - Labs Labs: 04/26/18 06:00 04/26/18 06:00 PT 13.8 SECONDS (9.4-12.5) H 04/24/18 10:00 INR 1.20 (0.93-1.08) H 04/24/18 10:00 APTT 32.0 Seconds (25.1-36.5) 04/24/18 10:00 - Constitutional Appears: No Acute Distress - Eye Exam Eye Exam: Normal appearance - ENT Exam ENT Exam: Mucous Membranes Moist - Respiratory Exam Respiratory Exam: Decreased Breath Sounds, NORMAL BREATHING PATTERN - Cardiovascular Exam Cardiovascular Exam: +S1, +S2 Additional comments: telemetry- atrial fibrillation - GI/Abdominal Exam GI & Abdominal Exam: Soft, Normal Bowel Sounds - Extremities Exam Additional comments: 3-4+ edema - Neurological Exam Neurological Exam: Alert, Awake, Oriented x3 - Psychiatric Exam Psychiatric exam: Normal Affect - Skin Skin Exam: Intact, Warm Assessment and Plan - Assessment and Plan (Free Text) Assessment: A 37 year old male who came in to the ER due to chest pain and shortness of breath,history of non ischemic cardiomyopathy, pancreatitis, renal failure and kidney stones, alcohol abuse, tobacco abuse,atrial fibrillation,obesity, non compliant. Admitted for acute decompensated heart failure. Started on primacor and aggressive diurese. Plan: Denies chest pain and shortness of breath Continue Primacor drip, discontinue in AM Will follow up ECHO result On Eliquis 5 mg BID (Afib), Coreg 12.5 mg BID, Lasix 40 mg TID, Zaroxylyn 5mg daily, Aldactone 25 mg daily Allergic to LUZ Inhibitors- cause to have tongue swelling Strict I&O Continue current treatment Continue current medications Lifestyle modifications Weight reduction Will follow up Plan and treatment discussed with Dr. Thomson
--- NOTE | 2018-04-26 12:59 | PN ---
DATE: 04/26/2018 SUBJECTIVE: The patient is 37 years old, seen and examined. Leg swelling seems to be better, still complaining of shortness of breath. The patient is active smoker, admits drinking, smoking almost half to one pack a day. No nausea, vomiting or diarrhea. Complaint of back pain, complaint of chest pain. PHYSICAL EXAMINATION: VITAL SIGNS: He is afebrile, pulse 89, respirations 18, blood pressure 135/83. LUNGS: Bilateral good airflow. No rhonchi or crackle. HEART: S1, S2 audible. ABDOMEN: Soft, obese, nontender. No rebound, no guarding. NEUROLOGICAL: The patient is awake, alert, oriented, communicative, moves all extremities. EXTREMITIES: Bilateral legs, +1 edema. LABORATORY DATA: WBC is 9.4, hemoglobin 13, hematocrit 40.7, platelets 293. Chemistry: Sodium 134, potassium 4.2, chloride 94, CO2 28, BUN 39, creatinine 1.3, blood sugar of 109. His cholesterol is 120. His echocardiogram is pending. EKG shows atrial fibrillation with premature ventricular contraction. ASSESSMENT AND PLAN: 1. Nonischemic cardiomyopathy. 2. History of recurrent pancreatitis. 3. Noncardiac chest pain. 4. Morbid obesity. 5. History of nephrolithiasis. So, plan is I will start the patient on , we will start him on Mobic. He is insisting he has chest pain although there is no evidence of coronary ischemia, could be muscular. We will follow up his electrolytes in the morning. Sammy Santiago MD
--- NOTE | 2018-04-26 18:23 | CARD ---
APPROVED REPORT Date of service: 04/25/2018 EXAM: Two-dimensional and M-mode echocardiogram with Doppler and color Doppler. INDICATION LV Function:SystolicDiastolic Chest Pain 2D DIMENSIONS Left Atrium (2D)6.2 (1.6-4.0cm)IVSd1.1 (0.7-1.1cm) LVDd7.0 (3.9-5.9cm)PWd1.2 (0.7-1.1cm) LVDs5.8 (2.5-4.0cm)FS (%) 16.2 % LVEF (%)32.9 (>50%) M-Mode DIMENSIONS Aortic Root2.90 (2.2-3.7cm)Aortic Cusp Exc.2.20 (1.5-2.0cm) Aortic Valve AoV Peak Wxlsttsa072.0cm/Morgan Peak GR.6mmHg Mitral Valve E/A ratio0.0 TDI E/Lateral E'0.0E/Medial E'0.0 Tricuspid Valve TR Peak [id number]/sRAP [id number] Peak Gr.41mmHg [id number] LEFT VENTRICLE The Left Ventricle is moderately dilated. There is mild concentric left ventricular hypertrophy. The systolic function is moderately impaired.EF-30-35% ( on Primacor) There is moderate to severe global hypokinesis of the left ventricle. Afib No left ventricle thrombus noted on this study. There is no ventricular septal defect visualized. There is no left ventricular aneurysm. There is no mass noted in the left ventricle. RIGHT VENTRICLE The right ventricle is mildly to moderately dilated. There is normal right ventricular wall thickness. Systolic function is moderately reduced. ATRIA The left atrium is severely dilated. The right atrium is severely dilated. The interatrial septum is intact with no evidence for an atrial septal defect. AORTIC VALVE The aortic valve is thickened but opens well. No aortic regurgitation is present. There is no aortic valvular stenosis. There is no aortic valvular vegetation. MITRAL VALVE The mitral valve is thickened but opens well. Mitral regurgitation is moderate to severe.( more towards Moderate) There is no mitral valve stenosis. There is no evidence of mitral valve prolapse. TRICUSPID VALVE The tricuspid valve leaflets are thickened , but open well. There is moderate tricuspid regurgitation.RVSP-51 mmof hg. There is no tricuspid valve stenosis. There is no tricuspid valve prolapse or vegetation. PULMONIC VALVE The pulmonary valve is normal in structure. There is no pulmonic valvular regurgitation. There is no pulmonic valvular stenosis. GREAT VESSELS The aortic root is normal in size. The ascending aorta is normal in size. The pulmonary artery is normal. The IVC is normal in size and collapses >50% with inspiration. PERICARDIAL EFFUSION There is no pleural effusion. There is no pericardial effusion. <Conclusion> Four chamber Dilatation C/w CMP. EF-30-35% ( on Primacor) Moderate MR/TR RVSP_51 mmof hg.
[2018-04-26 18:48] LABS: URINE BILIRUBIN NEGATIVE (NEGATIVE); URINE BLOOD LARGE (NEGATIVE); URINE GLUCOSE (UA) NEGATIVE (NEGATIVE); URINE LEUKOCYTE ESTERASE SMALL Leu/uL (NEGATIVE); URINE PROTEIN NEGATIVE mg/dL (<30 mg/dL); URINE UROBILINOGEN 0.2 E.U./dL (<1 E.U./dL)
[2018-04-26 18:49] LABS: URINE APPEARANCE CLEAR (CLEAR); URINE COLOR YELLOW (YELLOW)
--- NOTE | 2018-04-26 18:53 | CON ---
DATE: 04/26/2018 REASON FOR CONSULTATION: Decompensated congestive heart failure, edema, shortness of breath, hypertension, cardiomyopathy. HISTORY OF PRESENTING ILLNESS: A 37-year-old morbidly obese young male with severe hypertension, hypertensive heart disease, CHF, cardiomyopathy, chronic kidney disease stage II/III, recurrent episodes of acute kidney injury, left hydronephrosis, left ureteral stent, chronic pain, opioid dependence, is admitted with complaints of progressive shortness of breath, increasing lower extremity edema, dyspnea on exertion for 4 to 5 weeks prior to presentation. The patient has been started on milrinone drip. The patient is also receiving IV Lasix 40 mg t.i.d. He is also on Zaroxolyn 5 mg daily. Consultation is requested for chronic kidney disease stage II/III. PAST MEDICAL HISTORY AND PAST SURGICAL HISTORY: As mentioned above, severe hypertension, cardiomyopathy, CHF, left ventricular hypertrophy, morbid obesity, chronic pain, opioid dependence, left hydronephrosis, left ureteral stent, recurrent UTI, pyelonephritis, sepsis, acute kidney injury. FAMILY HISTORY: Noncontributory. SOCIAL HISTORY: No smoking, no alcohol use, no IV drug abuse. ALLERGIES: LUZ INHIBITORS. MEDICATIONS AT HOME: Aldactone 25 daily, Reglan, Dilaudid, Lasix 40 b.i.d., Pepcid 20 daily, Coreg 12.5 b.i.d., Eliquis 2.5 b.i.d., Pancrease. REVIEW OF SYSTEMS: All systems are reviewed, pertinent positives as mentioned in history of presenting illness, rest unremarkable. The patient denies any dysuria. He denies any burning in the urine. He complains of shortness of breath. He denies any dyspnea on exertion. He denies any abdominal pain. Denies any nausea, vomiting or diarrhea. He denies any fevers, chills. PHYSICAL EXAMINATION: GENERAL: Morbidly obese, young male, lying in bed, in mild respiratory distress. VITAL SIGNS: Blood pressure 147/88, heart rate 98, respiratory rate 20-24, temperature 97.9. HEENT: Normocephalic, atraumatic, positive pallor. NECK: Supple, no JVD. LUNGS: Bilateral equal air entry, bilateral equal expansion, no rales appreciated anteriorly. CARDIAC: S1 and S2, regular rate and rhythm, no murmur, no rub. ABDOMEN: Obese, distended, soft, nontender, bowel sounds present. EXTREMITIES: 2+ pitting edema of the lower extremities. INTAKE AND OUTPUT: 2963/5150. LABORATORY DATA: WBC 9.4, hemoglobin 13.5, hematocrit 40.7, platelets 293. Sodium 134, potassium 4.2, chloride 94, CO2 of 28, BUN 39, creatinine 1.3, glucose 109, calcium 9.1, phosphorus 4.7, magnesium 2, albumin 3.9. CURRENT MEDICATIONS: Aldactone 25 daily, Coreg 12.5 b.i.d., Dilaudid, Eliquis 5 b.i.d., Lasix 40 IV t.i.d. being increased to 80 p.o. b.i.d. tomorrow, Mobic 15, Pancrease, Pepcid, milrinone, Zaroxolyn 5 daily. ASSESSMENT: 1. Decompensated congestive heart failure, volume overload, dyspnea on exertion. 2. Stable chronic kidney disease, stage II/III at present. 3. History of left hydronephrosis with left ureteral stent. 4. Severe hypertension, currently fairly controlled. 5. Morbid obesity. 6. Multiple episodes of acute kidney injury in the past. PLAN: 1. Monitor urine output closely. 2. Monitor daily electrolytes. 3. Continue to diurese aggressively. 4. Continue milrinone drip. 5. Continue Aldactone 25 mg daily. 6. Check urinalysis. 7. Avoid nephrotoxins. Thank you for the courtesy of this consultation. We will follow this patient with you. Angelica Don MD
[2018-04-26 18:59] LABS: URINE BACTERIA NEG (NEG); URINE WBC 0 - 2 /hpf (0-6)
[2018-04-27] MEDS: Milrinone 20mg/100ml D5W 100 ML IV PRN ×2 (00:26→04:23)
[2018-04-27] MEDS: HYDROmorphone 1 mg/ml ISec IVP PRN (05:09)
[2018-04-27 06:56] LABS: BASO # 0.02 K/mm3 (0.0-2.0); BASO % 0.2 % (0.0-3.0); EOS # 0.3 (0.0-0.7); EOS % 2.8 % (1.5-5.0); GRAN # 5.5 (1.4-6.5); GRAN % 61.3 % (50.0-68.0); LYMPH # 2.1 (1.2-3.4); MEAN CELL VOLUME 94.8 fl (80.0-105.0); MEAN CORPUSCULAR HEMOGLOBIN 31.7 pg (25.0-35.0); MEAN CORPUSCULAR HGB CONC 33.4 g/dl (31.0-37.0); MONO # 1.1 (0.1-0.6); MONO % 12.7 % (1.0-6.0); RBC 4.42 10^6/uL (3.5-6.1); RED CELL DISTRIBUTION WIDTH 14.7 % (11.5-14.5)
[2018-04-27 07:14] LABS: ALB/GLOB RATIO 1.2 (1.1-1.8); ALBUMIN 4.2 g/dL (3.0-4.8)
[2018-04-27] MEDS: Amylase/Lipase/Protease 5,000 Units ECC PO SCH ×3 (08:19→17:05)
[2018-04-27] MEDS: metOLazone 5 MG TAB PO SCH (09:19)
--- NOTE | 2018-04-27 10:45 | PN ---
DATE: 04/27/2018 SUBJECTIVE: The patient is seen lying in bed. He is awake. He is alert. He reports dyspnea on exertion. He reports swelling in his lower extremities is improved. PHYSICAL EXAMINATION: GENERAL: Young male lying in bed in mild distress. VITAL SIGNS: Blood pressure 131/73, heart rate 53, respiratory rate 18, temperature 97.9. HEENT: Normocephalic, atraumatic, positive pallor. NECK: Supple, no JVD. LUNGS: Bilateral equal air entry, bilateral equal expansion, no rales. CARDIAC: S1 and S2, regular rate and rhythm, no murmur, no rub. ABDOMEN: Obese, distended, soft, nontender, bowel sounds present. EXTREMITIES: 1+ pitting edema of the lower extremities. INTAKE AND OUTPUT: 2330/4300. Cumulative negative balance over the last 3 days, negative balance of 5 L. LABORATORY DATA: WBC 9, hemoglobin 14, hematocrit 42, platelets 291. Sodium 134, potassium 3.9, chloride 91, CO2 of 28, BUN 45, creatinine 1.7, glucose 118, calcium 9, phosphorus 4.7, albumin 4.2. Urinalysis: Yellow, clear, pH 6, specific gravity less than 1.005, blood large, leukocyte esterase small. CURRENT MEDICATIONS: Aldactone 25 daily, Coreg 12.5 b.i.d., Dilaudid, Eliquis 5 b.i.d., Lasix 80 p.o. b.i.d., Mobic 15, Pancrease, Pepcid, Zaroxolyn 5. ASSESSMENT: 1. Decompensated congestive heart failure/cardiomyopathy/hypertensive heart disease. 2. Mild prerenal azotemia superimposed on chronic kidney disease stage 3. 3. Mild hypokalemia. 4. Morbid obesity. 5. Hypertension. 6. History of left hydronephrosis, left ureteral stent, recurrent episodes of pyelonephritis/sepsis/acute kidney injury. PLAN: 1. Continue IV Lasix for one more day, change to 60 IV every 12. 2. Continue Zaroxolyn. 3. Milrinone has been discontinued as per Cardiology. 4. Avoid nephrotoxins. 5. Continue Aldactone. 6. Physical therapy, ambulation. Angelica Don MD [facility] # [id number]
[2018-04-27] MEDS: HYDROmorphone 1 mg/ml ISec SC PRN ×2 (11:51→18:08)
--- NOTE | 2018-04-27 12:41 | PN ---
DATE: 04/27/2018 REASON FOR CONSULTATION AND FOLLOWUP: Cardiac evaluation, admitted with shortness of breath, decompensated congestive heart failure, morbid obesity. SUBJECTIVE: The patient denies chest pain, but complained of shortness of breath on walking. OBJECTIVE: GENERAL: Not in apparent distress, lying flat in the bed. VITAL SIGNS: As follows, temperature afebrile, heart rate 53, blood pressure 107/57. HEENT: PERRLA. Extraocular muscles intact. NECK: Supple. No carotid bruits or thyromegaly. CHEST: Clear to auscultation. HEART: S1 and S2 regular. ABDOMEN: Soft. EXTREMITIES: Clubbing and cyanosis negative. LABORATORY DATA: Blood workup as follows: WBC 9, hemoglobin 14, hematocrit 41.9, platelet count 291. Chemistry shows sodium 134, potassium 3.9, chloride 91, carbon dioxide 28, anion gap of 19, BUN 45, creatinine 1.7. Troponin is 0.04, remains negative. Echo done yesterday showed 4-chamber dilated cardiomyopathy, ejection fraction 30-35%, on Primacor, moderate MR, moderate TR. IMPRESSION: This is a 37-year-old male with past medical history significant for nonischemic cardiomyopathy, morbid obesity, weight is more than 450 pounds, admitted with decompensated congestive heart failure, history of mitral and tricuspid regurgitation, morbid obesity, atrial fibrillation, noncompliance with the medication. The patient was initially treated with Primacor and diuretics. History of allergy, he gets swelling of the tongue. RECOMMENDATIONS: Continue drying rack changer to p.o. Continue metolazone. Discontinue Telemetry. Emphasis made in the patient, not to drink more than four cups of water and emphasis on weight reduction. Continue Eliquis 5 mg b.i.d., the patient was on 2.5, but because of the increased body mass index, 5 mg, though the patient has some renal insufficiency. Try to avoid NSAIDs. We will continue Lasix, we will change to p.o. 80 b.i.d. We will follow. We will discontinue Telemetry. Further recommendation depending on hospital course. We will follow with you. The patient needs to be compliant with medication, emphasis on weight reduction, modification of lifestyle. If after these, the patient gets optimal weight and still remains with EF low, consider AICD, but right now, the patient is in high risk for any invasive procedure because of the morbid obesity and also noncompliance issue. Thank you, Dr. Santiago, for providing us the opportunity in taking of Gareth Leblanc. Shayna Thomson MD
--- NOTE | 2018-04-27 19:07 | PN ---
DATE: 04/27/2018 SUBJECTIVE: The patient is 37 years old, seen and examined, doing better. His leg swelling has significantly improved. Still complaining of shortness of breath. PHYSICAL EXAMINATION: VITAL SIGNS: He is afebrile, pulse 60, respirations 18, blood pressure 144/72. LUNGS: Bilateral diffusely decreased breath sounds. HEART: S1 and S2 audible. ABDOMEN: Soft, obese, nontender. No rebound. No guarding. NEUROLOGIC: He is awake, alert, oriented, communicative. LABORATORY EXAM: WBC 9, hemoglobin 14, hematocrit 41.9, platelet 291. Chemistry: Sodium 134, potassium 3.9, chloride 91, CO2 of 28, BUN 45, creatinine 1.7, blood sugar of 118. ASSESSMENT: 1. Nonischemic cardiomyopathy. 2. Hypertension. 3. Paroxysmal atrial fibrillation. 4. Bilateral leg edema. 5. Recurrent pancreatitis, stable now. PLAN: He was on Primacor drip and has been discontinued. We will add Xopenex. Continue on metolazone. We will follow up his CMP in the a.m. Encourage ambulation. We will follow up the patient in the a.m. If he remains stable, possible discharge in the a.m. Sammy Santiago MD
[2018-04-27] MEDS: Levalbuterol 1.25 MG/3 ML Inhal Soln UD IH PRN (21:15)
[2018-04-27 22:07] VITALS: RESP 20; TEMP 98.2
[2018-04-28] MEDS: HYDROmorphone 1 mg/ml ISec SC PRN ×3 (00:07→11:50)
[2018-04-28] MEDS: Levalbuterol 1.25 MG/3 ML Inhal Soln UD IH PRN ×2 (07:25→13:29)
[2018-04-28 07:52] LABS: ALBUMIN 4.3 g/dL (3.0-4.8); CALCIUM 9.1 mg/dL (8.4-10.5)
[2018-04-28 08:02] VITALS: O2SAT 97
--- NOTE | 2018-04-28 08:04 | CP.PCM.PN ---
Subjective - Date & Time of Evaluation Date of Evaluation: 04/28/18 Time of Evaluation: 07:15 - Subjective Subjective: Awake, no distress, claimed to be short of breath when ambulating Reason for consultation and follow up: Cardiac evaluation of chest pain, history of non ischemic cardiomyopathy, pancreatitis, renal failure and kidney stones.Decompensated congestive heart failure Seen and examined by me and Dr. Jay Objective - Vital Signs/Intake and Output Vital Signs (last 24 hours): Temp Pulse Resp BP Pulse Ox 98.2 F 73 20 96/61 L 95 04/27/18 22:06 04/27/18 22:50 04/27/18 22:06 04/27/18 22:50 04/27/18 22:06 Intake and Output: 04/28/18 04/28/18 06:59 18:59 Intake Total 660 Output Total 1600 Balance -940 - Medications Medications: Current Medications Amylase (Pancrease 70989 U-5000 U-04919 U) 15,000 unit PO AC [facility] Last Admin: 04/27/18 17:05 Dose: 15,000 unit Apixaban (Eliquis) 5 mg PO BID [facility] Last Admin: 04/27/18 17:04 Dose: 5 mg Carvedilol (Coreg) 12.5 mg PO BID [facility] Last Admin: 04/27/18 17:05 Dose: 12.5 mg Famotidine (Pepcid) 20 mg PO DAILY [facility] Last Admin: 04/27/18 09:19 Dose: 20 mg Furosemide (Lasix) 80 mg PO BID [facility] Last Admin: 04/27/18 17:04 Dose: 80 mg Hydromorphone HCl (Dilaudid) 1 mg SC Q6H PRN PRN Reason: Pain, severe (8-10) Last Admin: 04/28/18 06:11 Dose: 1 mg Levalbuterol HCl (Xopenex) 1.25 mg IH Q8 PRN PRN Reason: SOB Last Admin: 04/28/18 07:25 Dose: 1.25 mg Meloxicam (Mobic) 15 mg PO DAILY [facility] Last Admin: 04/27/18 09:20 Dose: 15 mg Metolazone (Zaroxolyn) 5 mg PO DAILY [facility] Last Admin: 04/27/18 09:19 Dose: 5 mg Spironolactone (Aldactone) 25 mg PO DAILY [facility] Last Admin: 04/27/18 09:14 Dose: 25 mg - Labs Labs: 04/27/18 06:00 04/28/18 06:30 PT 13.8 SECONDS (9.4-12.5) H 04/24/18 10:00 INR 1.20 (0.93-1.08) H 04/24/18 10:00 APTT 32.0 Seconds (25.1-36.5) 04/24/18 10:00 - Constitutional Appears: No Acute Distress - Eye Exam Eye Exam: Normal appearance - ENT Exam ENT Exam: Mucous Membranes Moist - Respiratory Exam Respiratory Exam: Decreased Breath Sounds, Rhonchi, NORMAL BREATHING PATTERN - Cardiovascular Exam Cardiovascular Exam: +S1, +S2 - GI/Abdominal Exam GI & Abdominal Exam: Soft, Normal Bowel Sounds - Extremities Exam Additional comments: 1-2+ edema - Neurological Exam Neurological Exam: Alert, Awake, Oriented x3 - Psychiatric Exam Psychiatric exam: Normal Affect - Skin Skin Exam: Intact, Warm Assessment and Plan - Assessment and Plan (Free Text) Assessment: 37 year old male who came in to the ER due to chest pain and shortness of breath,history of non ischemic cardiomyopathy, pancreatitis, renal failure and kidney stones, alcohol abuse, tobacco abuse,atrial fibrillation,obesity, non compliant. Admitted for acute decompensated heart failure. Started on primacor and aggressive diurese.Clinically improved from baseline. Off primacor. off telemetry. Plan: Off Primacor IV Lasix switch to oral Shortness of breath when ambulating Nebulizer treatment given On Eliquis 5 mg BID (Afib), Coreg 12.5 mg BID, Lasix 80 mg BID, Zaroxylyn 5mg daily, Aldactone 25 mg daily Allergic to LUZ Inhibitors- cause to have tongue swelling Strict I&O, on fluid restriction Continue current treatment Continue current medications Lifestyle modifications Weight reduction Discharge planning Will follow up Plan and treatment discussed with Dr. Jay
[2018-04-28] MEDS: Amylase/Lipase/Protease 5,000 Units ECC PO SCH ×2 (08:32→10:33)
[2018-04-28] MEDS: metOLazone 5 MG TAB PO SCH (10:33)
[2018-04-28 10:39] VITALS: BP 120/79; PULSE 79
[2018-04-28] MEDS ORDERED: Potassium Chloride 20 mEq ER Tab PO SCH (10:45)
--- NOTE | 2018-04-28 18:42 | PN ---
DATE: 04/28/2018 SUBJECTIVE: The patient is seen lying in bed. He is awake, he is alert, he is comfortable. He reports feeling somewhat better. He still complains of shortness of breath. PHYSICAL EXAMINATION: GENERAL: Morbidly obese, young male, lying in bed. VITAL SIGNS: Blood pressure 120/79, heart rate 79, respiratory rate 20, and temperature 98.2. HEENT: Normocephalic, atraumatic. NECK: Supple, no JVD. LUNGS: Bilateral equal air entry, bilateral equal expansion. CARDIAC: S1 and S2, regular rate and rhythm, no murmur, no rub. ABDOMEN: Obese, distended, soft, nontender, bowel sounds present. EXTREMITIES: No lower extremity edema. INTAKE AND OUTPUT: 500/1400 LABORATORY DATA: WBC 9, hemoglobin 14, hematocrit 42, and platelets 291. Sodium 135, potassium 3.4, chloride 92, CO2 of 29. BUN 49, creatinine 1.7. Glucose 102. Calcium 9.1. AST 25, ALT 30. Albumin 4.3. CURRENT MEDICATIONS: Aldactone 25 daily, Coreg 12.5 b.i.d., Dilaudid, Eliquis 5 b.i.d., Lasix 80 b.i.d., meloxicam, Pepcid, Xopenex, and Zaroxolyn 5 daily. ASSESSMENT AND PLAN: 1. Stable chronic kidney disease stage II/III. 2. Mild prerenal azotemia. 3. Hypokalemia. 4. Decompensated congestive heart failure, significantly improved. 5. Severe hypertension. 6. Left hydronephrosis. 7. Left ureteral stent. 8. Multiple urinary tract infections/pyelonephritis. PLAN: 1. Continue Lasix 80 mg b.i.d. 2. Continue Coreg 25 daily. 3. Potassium 20 mEq b.i.d. 4. Once again impressed upon the patient the importance of close followup as outpatient. Angelica Don MD
--- NOTE | 2018-04-29 04:50 | DS ---
HISTORY OF PRESENT ILLNESS: The patient is 37 years old, came to emergency room because of increasing leg swelling, increasing shortness of breath. He was found to be in CHF. He was started on Primacor drip and was aggressively diuresed. Started to do better. Leg swelling has significantly improved. PHYSICAL EXAMINATION: VITAL SIGNS: He is afebrile, pulse 59, respirations 20, blood pressure 120/79. LUNGS: Bilateral diffusely decreased breath sound. HEART: S1 and S2 audible. ABDOMEN: Soft. Nontender. No rebound. No guarding. NEUROLOGICAL: The patient is awake, alert, oriented, communicative. LABORATORY EXAM: Sodium 135, potassium 3.4, chloride 92, CO2 of 29, BUN 49, creatinine 1.7, blood sugar of 102, total protein 8.5. ASSESSMENT: 1. Ischemic cardiomyopathy. 2. Chronic kidney disease secondary to chronic smoking. 3. History of nephrolithiasis. 4. Hypokalemia. 5. Prerenal azotemia. 6. History of left hydronephrosis and left ureteral stent. PLAN: The patient is being discharged home. He will resume his medication. He is advised to take Lasix 40 three times a day Monday, Monday, Monday and twice a day on other days. He was given prescription of ProAir 2 puffs four times a day as needed. He will resume his Pepcid, spironolactone, Coreg, Eliquis and pancreatic enzyme. He will follow up with Dr. Don and myself in about . Sammy Santiago MD
--- NOTE | 2018-05-15 08:58 | PQF ---
PROVIDER RESPONSE TEXT: CHF secondary to Acute on chronic systolic dysfunction, REVIEWER QUERY TEXT: CHF Acuity and Type Congestive Heart Failure is documented in the Medical Record. Please document the type and acuity (in cludes probable or suspected) Such as: Type: -- Systolic -- Diastolic -- Combined -- Other, please specify Acuity: -- Acute -- Chronic -- Acute on chronic -- Other, please specify Also please document the underlying cause of the CHF (includes probable or suspected) The patient's Clinical Indicators include: Admitted with acute decompensated CHF on Primacor drip with EF fraction=30-35%. Please specify type o f CHF. Query created by: Leah Ceron on 05/01/2018 7:55 AM Electronically signed by: Shayna Thomson 05/15/2018 8:55 AM
== END 2018-04-28 16:09 | disposition home or self-care (01) | DRG 291 ==
LOC: ED 09:33 → ERH 11:34 → 2RNO 13:43 → 5RNO 04-27 12:09
PROVIDERS: ADMIT Internal Medicine; ATTEND Internal Medicine
DX: I13.0 Hypertensive heart and chronic kidney disease with heart failure and stage 1 through stage 4 chronic kidney disease, or unspecified chronic kidney disease (principal); I50.23 Acute on chronic systolic (congestive) heart failure; K86.1 Other chronic pancreatitis; I48.92 Unspecified atrial flutter; Z68.43 Body mass index [BMI] 50.0-59.9, adult; N18.3 Chronic kidney disease, stage 3 (moderate); I25.5 Ischemic cardiomyopathy; I49.3 Ventricular premature depolarization; E87.6 Hypokalemia; I48.0 Paroxysmal atrial fibrillation; I08.1 Rheumatic disorders of both mitral and tricuspid valves; K21.9 Gastro-esophageal reflux disease without esophagitis; F17.210 Nicotine dependence, cigarettes, uncomplicated; E78.5 Hyperlipidemia, unspecified; E66.01 Morbid (severe) obesity due to excess calories; G89.29 Other chronic pain; G47.30 Sleep apnea, unspecified; Z87.442 Personal history of urinary calculi; Z91.19 Patient's noncompliance with other medical treatment and regimen; Z91.14 Patient's other noncompliance with medication regimen; Z87.440 Personal history of urinary (tract) infections

== ENCOUNTER 2018-05-11 10:02 | Inpatient (IN) | payer BC ==
[2018-05-11 10:03] VITALS: PULSE 95
[2018-05-11 10:26] VITALS: BMI 56.8
--- NOTE | 2018-05-11 10:26 | ED PDOC ---
Arrival/HPI - General Chief Complaint: Chest Pain Time Seen by Provider: 05/11/18 10:10 Historian: Patient - History of Present Illness Narrative History of Present Illness (Text): 05/11/18 10:30 37 year old male, whose PMH includes CHF, hypertension, and PVD, who presents to the emergency department complaining of sharp pain to the back, chest, associated with shortness of breath. Patient also complaints of left flank pain and abdominal pain since a couple of days. Patient denies fever, dizziness, headache, nausea, vomiting, diarrhea, or other complaints. PMD: Dr. Santiago Time/Duration: < week Symptom Onset: Sudden Symptom Course: Unchanged Context: Home Past Medical History - Provider Review Nursing Documentation Reviewed: Yes - Past History Past History: Non-Contributing - Infectious Disease Hx of Infectious Diseases: None - Tetanus Immunization Tetanus Immunization: Unknown - Cardiac Hx Cardiac Disorders: Yes (cardiomyopathy) Hx Cardiac Arrhythmia: Yes Hx Congestive Heart Failure: Yes Hx Hypertension: Yes Hx Pacemaker: No Hx Peripheral Edema: Yes (ble +3 pitting) Hx Peripheral Vascular Disease: Yes - Pulmonary Hx Respiratory Disorders: No Hx Sleep Apnea: (pt denies sleep apnea) - Neurological Hx Neurological Disorder: No - HEENT Hx HEENT Disorder: No - Renal Hx Renal Disorder: Yes (hydronephrosis, L ureteral pigtail stent) Hx Kidney Stones: Yes Hx Renal Failure: Yes - Endocrine/Metabolic Hx Endocrine Disorders: No - Hematological/Oncological Hx Blood Disorders: No - Integumentary Hx Dermatological Disorder: No Other/Comment: pt refusing to have skin assessed - Musculoskeletal/Rheumatological Hx Musculoskeletal Disorders: Yes Hx Back Pain: Yes Hx Falls: No Hx Fractures: Yes (r ankle) Hx Gout: Yes - Gastrointestinal Hx Gastrointestinal Disorders: Yes (morbidly obese) Hx Diverticulitis: Yes Hx Gastroesophageal Reflux: Yes Hx Pancreatitis: Yes - Genitourinary/Gynecological Hx Genitourinary Disorders: Yes (urinary retention) Hx Hematuria: Yes Hx Urinary Tract Infection: Yes Other/Comment: pylonephritis - Psychiatric Hx Psychophysiologic Disorder: No Hx Emotional Abuse: No Hx Physical Abuse: No Hx Substance Use: No Other/Comment: etoh in the past none since pancreatitis - Past Surgical History Past Surgical History: No Previous - Surgical History Hx Cholecystectomy: Yes - Anesthesia Hx Anesthesia: Yes Hx Anesthesia Reactions: Yes (NAUSEA) Hx Malignant Hyperthermia: No - Suicidal Assessment Feels Threatened In Home Enviroment: No Family/Social History - Physician Review Nursing Documentation Reviewed: Yes Family/Social History: Unknown Family HX Smoking Status: Heavy Smoker > 10 Cigarettes Daily Hx Alcohol Use: Yes (stopped since pancreatitis) Hx Substance Use: No Hx Substance Use Treatment: No Allergies/Home Meds Allergies/Adverse Reactions: Allergies LUZ Inhibitors Allergy (Severe, Verified 05/11/18 10:20) ANGIOEDEMA Home Medications: Home Meds Medication Instructions Recorded Confirmed Carvedilol [Coreg] 12.5 mg PO BID 08/06/17 05/11/18 Famotidine [Pepcid] 20 mg PO DAILY 08/06/17 05/11/18 Furosemide [Lasix] 40 mg PO BID 08/06/17 05/11/18 Spironolactone [Aldactone] 25 mg PO DAILY 08/06/17 05/11/18 Amylase/Lipase/Protease [Pancrease 3 tab PO AC 12/13/17 05/11/18 37293 U-5000 U-[id number] U] Metoclopramide [Reglan] 10 mg PO PRN PRN 12/13/17 05/11/18 Review of Systems - Review of Systems Constitutional: absent: Fevers Respiratory: SOB. absent: Cough Cardiovascular: Chest Pain Gastrointestinal: Abdominal Pain. absent: Diarrhea Genitourinary Male: absent: Dysuria Musculoskeletal: Back Pain Skin: absent: Rash Neurological: absent: Headache, Dizziness Endocrine: absent: Diaphoresis Physical Exam Vital Signs Reviewed: Yes Vital Signs Temp Pulse Resp BP Pulse Ox 05/11/18 12:22 97.9 F 108 H 24 146/94 H 100 05/11/18 11:40 148/96 H 05/11/18 11:23 106 H 24 149/96 H 99 05/11/18 10:13 97.5 F L 111 H 20 148/98 H 93 L Temperature: Afebrile Blood Pressure: Hypertensive Pulse: Tachycardic Respiratory Rate: Normal Appearance: Positive for: Non-Toxic, Comfortable, Other (obese) Pain Distress: None Mental Status: Positive for: Alert and Oriented X 3 - Systems Exam Head: Present: Atraumatic, Normocephalic Pupils: Present: PERRL Extroacular Muscles: Present: EOMI Conjunctiva: Present: Normal Respiratory/Chest: Present: Rales (mild rales at bases ). No: Clear to Auscultation, Respiratory Distress, Accessory Muscle Use Cardiovascular: Present: Regular Rate and Rhythm, Normal S1, S2. No: Murmurs Abdomen: Present: Normal Bowel Sounds. No: Tenderness, Distention, Peritoneal Signs, Rebound, Guarding Neurological: Present: GCS=15, CN II-XII Intact, Speech Normal Skin: Present: Warm, Dry, Normal Color. No: Rashes Psychiatric: Present: Alert, Oriented x 3, Normal Insight, Normal Concentration Medical Decision Making ED Course and Treatment: 05/11/18 Impression: 37 year old male who is morbidly obese and has mild rales at bases, complaining of shortness of breath, chest pain, back pain, abdominal pain. ro chf/pnuemona , kidney stone. Plan: -- EKG -- CT abdomen and pelvis -- Chest X-ray -- Toradol -- Labs -- Urinalysis -- Reassess and disposition Progress Notes: 05/11/18 EKG: Ordered, reviewed, and independently interpreted the EKG. Rate : 105 BPM Rhythm : atrial fibrillation Interpretation : No ST-segment elevations or depressions, no T-wave inversions, normal intervals. 05/11/18 11:05 Chest X-ray: Creator : Brant Verma MD COMPARISON: 04/24/2018 FINDINGS: LUNGS: Vascular congestion and right-sided infiltrate PLEURA: No significant pleural effusion identified, no pneumothorax apparent. CARDIOVASCULAR: Moderate to severe cardiomegaly OSSEOUS STRUCTURES: No significant abnormalities. VISUALIZED UPPER ABDOMEN: Normal. OTHER FINDINGS: None. IMPRESSION: Moderate vascular congestion and right-sided infiltrate 05/11/18 11:20 CT abdomen and pelvis: Creator : Sean Blake MD COMPARISON: 01/19/2018 FINDINGS: LOWER THORAX: Unremarkable. LIVER: Unremarkable. No gross lesion or ductal dilatation. GALLBLADDER AND BILE DUCTS0: Unremarkable. PANCREAS: Unremarkable. No gross lesion or ductal dilatation. SPLEEN: Unremarkable. ADRENALS: Unremarkable. No mass. KIDNEYS AND URETERS: 4 millimeter left lower pole ureteral calculus. Moderate left hydronephrosis. Left ureteral stent appears to have migrated inferiorly, with the proximal limb situated in the proximal ureter. VASCULATURE: Unremarkable. No aortic aneurysm. BOWEL: Unremarkable. No obstruction. No gross mural thickening. APPENDIX: Unremarkable. Normal appendix. PERITONEUM: Unremarkable. No free fluid. No free air. LYMPH NODES: Unremarkable. No enlarged lymph nodes. BLADDER: Unremarkable. REPRODUCTIVE: Unremarkable. BONES: No acute fracture. OTHER FINDINGS: None. IMPRESSION: 4 millimeter left lower pole ureteral calculus. Moderate left hydronephrosis. Left ureteral stent appears to have migrated inferiorly, with the proximal limb situated in the proximal ureter. 05/11/18 14:26 antibiotics ordered, lasix dosed. case discussed with dr jack aguilera for admission - Lab Interpretations Lab Results: 05/11/18 10:45 05/11/18 10:45 Lab Results 05/11/18 10:45: Sodium 141, Potassium 4.4, Chloride 101, Carbon Dioxide 29, Anion Gap 15, BUN 45 H, Creatinine 1.9 H, Est GFR ( Amer) 48, Est GFR ( Non-Af Amer) 40, Random Glucose 128 H, Calcium 9.1, Magnesium 2.2, Total Bilirubin 0.4, AST 21, ALT 15, Alkaline Phosphatase 76, Lactate Dehydrogenase 485, Total Creatine Kinase 93, Troponin I 0.02 D, NT-Pro-B Natriuret Pep 2410 H , Total Protein 8.2, Albumin 4.2, Globulin 4.0, Albumin/Globulin Ratio 1.1, Lipase 123 05/11/18 10:45: PT 13.2 H, INR 1.14, APTT 32.6 05/11/18 10:45: WBC 11.8 H D, RBC 4.52, Hgb 14.2, Hct 43.2, MCV 95.6, MCH 31.4, MCHC 32.9, RDW 14.9 H, Plt Count 319, MPV 9.9, Gran % 76.8 H, Lymph % (Auto) 11.5 L, Woodson % (Auto) 11.2 H, Eos % (Auto) 0.4 L, Baso % (Auto) 0.1, Gran # 9.08 H, Lymph # (Auto) 1.4, Woodson # (Auto) 1.3 H, Eos # (Auto) 0.1, Baso # (Auto ) 0.01 I have reviewed the lab results: Yes - RAD Interpretation Radiology Orders: 05/11/18 10:31 ABD & PELVIS W/O PO OR IV CONT [CT] Stat CHEST PORTABLE [RAD] Stat Delivery Representative: Radiologist - EKG Interpretation Interpreted by ED Physician: Yes Type: 12 lead EKG - Medication Orders Current Medication Orders: Amylase (Pancrease 30790 U-5000 U-[id number] U) 5,000 unit PO AC [facility] Apixaban (Eliquis) 2.5 mg PO BID [facility] PRN Reason: Protocol Carvedilol (Coreg) 12.5 mg PO BID [facility] Famotidine (Pepcid) 20 mg PO DAILY [facility] Last Admin: 05/11/18 12:21 Dose: 20 mg Furosemide (Lasix) 40 mg IVP DAILY [facility] Ceftriaxone Sodium (Rocephin 1 Gram Ivpb) 1 gm in 100 mls @ 100 mls/hr IVPB DAILY [facility] PRN Reason: Protocol Last Admin: 05/11/18 14:08 Dose: 100 mls/hr eMAR Start Stop Document 05/11/18 14:08 (Rec: 05/11/18 14:08 [id number]) Intravenous Solution Start Date 05/11/18 Start Time 14:08 Spironolactone (Aldactone) 25 mg PO DAILY [facility] Last Admin: 05/11/18 12:21 Dose: 25 mg Discontinued Medications Furosemide (Lasix) 40 mg IVP STAT STA Stop: 05/11/18 11:21 Last Admin: 05/11/18 11:40 Dose: 40 mg MAR Blood Pressure Document 05/11/18 11:40 SRE (Rec: 05/11/18 11:41 SRE [id number]) Blood Pressure Blood Pressure (100/60-150/90) 148/96 IVP Administration Document 05/11/18 11:40 SRE (Rec: 05/11/18 11:41 SRE [id number]) Charges for Administration # of IVP Administrations 1 Vancomycin HCl (Vancomycin 1gm) 1 gm in 250 mls @ 167 mls/hr IVPB STAT STA PRN Reason: Protocol Stop: 05/11/18 12:33 Last Admin: 05/11/18 11:55 Dose: 167 mls/hr eMAR Start Stop Document 05/11/18 11:55 SRE (Rec: 05/11/18 11:56 SRE [id number]) Intravenous Solution Start Date 05/11/18 Start Time 11:55 End Date 05/11/18 End time 13:30 Total Infusion Time 95 Piperacillin Sod/Tazobactam Sod (Zosyn 3.375 In Ns 100ml) 100 mls @ 200 mls/hr IVPB STAT STA PRN Reason: Protocol Stop: 05/11/18 11:33 Last Admin: 05/11/18 11:18 Dose: 200 mls/hr eMAR Start Stop Document 05/11/18 11:18 SRE (Rec: 05/11/18 11:18 SRE [id number]) Intravenous Solution Start Date 05/11/18 Start Time 11:18 End Date 05/11/18 End time 12:15 Total Infusion Time 57 Ketorolac Tromethamine (Toradol) 30 mg IVP STAT STA Stop: 05/11/18 10:33 Last Admin: 05/11/18 11:05 Dose: 30 mg MAR Pain Assessment Document 05/11/18 11:05 SRE (Rec: 05/11/18 11:08 SRE [id number]) Pain Reassessment Is this a pain reassessment? Yes Sleep Is patient sleeping during reassessment? No Presence of Pain Presence of Pain Yes Pain Scale Used Pain Scale Used Numeric Location Pain Location Body Site Chest Description Description Intermittent IVP Administration Document 05/11/18 11:05 SRE (Rec: 05/11/18 11:08 SRE [id number]) Charges for Administration # of IVP Administrations 1 Re-Assess: MAR Pain Assessment Document 05/11/18 12:05 SRE (Rec: 05/11/18 12:16 SRE [id number]) Pain Reassessment Is this a pain reassessment? Yes Sleep Is patient sleeping during reassessment? No Presence of Pain Presence of Pain Yes Pain Scale Used Pain Scale Used Numeric Location Pain Location Body Site Chest Morphine Sulfate (Morphine) 4 mg IVP STAT STA Stop: 05/11/18 13:59 Last Admin: 05/11/18 14:07 Dose: 4 mg MAR Pain Assessment Document 05/11/18 14:07 (Rec: 05/11/18 14:08 [id number]) Pain Reassessment Is this a pain reassessment? No Presence of Pain Presence of Pain Yes Pain Scale Used Pain Scale Used Numeric Location Pain Location Body Site Chest Abdomen Back Description Description Sharp Intensity of Pain at present 9 Alleviating Factors Medication IVP Administration Document 05/11/18 14:07 (Rec: 05/11/18 14:08 [id number]) Charges for Administration # of IVP Administrations 1 - Scribe Statement The provider has reviewed the documentation as recorded by the Scribe Megan Yesika Provider Scribe Attestation: All medical record entries made by the Jose A were at my direction and personally dictated by me. I have reviewed the chart and agree that the record accurately reflects my personal performance of the history, physical exam, medical decision making, and the department course for this patient. I have also personally directed, reviewed, and agree with the discharge instructions and disposition. Disposition/Present on Arrival - Present on Arrival Any Indicators Present on Arrival: No History of DVT/PE: No History of Uncontrolled Diabetes: No Urinary Catheter: No History of Decub. Ulcer: No History Surgical Site Infection Following: None - Disposition Have Diagnosis and Disposition been Completed?: Yes Diagnosis: CHF exacerbation, Pneumonia Disposition: HOSPITALIZED Disposition Time: 12:00 Condition: FAIR
[2018-05-11 10:59] LABS: BASO # 0.01 K/mm3 (0.0-2.0); BASO % 0.1 % (0.0-3.0); EOS # 0.1 (0.0-0.7); EOS % 0.4 % (1.5-5.0); GRAN # 9.08 (1.4-6.5); GRAN % 76.8 % (50.0-68.0); HEMOGLOBIN 14.2 g/dL (14.0-18.0); LYMPH # 1.4 (1.2-3.4); LYMPH % 11.5 % (22.0-35.0); MEAN CELL VOLUME 95.6 fl (80.0-105.0); MEAN CORPUSCULAR HEMOGLOBIN 31.4 pg (25.0-35.0); MEAN CORPUSCULAR HGB CONC 32.9 g/dl (31.0-37.0); MEAN PLATELET VOLUME 9.9 fl (7.0-11.0); MONO # 1.3 (0.1-0.6); MONO % 11.2 % (1.0-6.0); RBC 4.52 10^6/uL (3.5-6.1); RED CELL DISTRIBUTION WIDTH 14.9 % (11.5-14.5); WHITE BLOOD COUNT 11.8 10^3/ul (4.5-11.0)
--- NOTE | 2018-05-11 11:03 | RAD ---
Date of service: 05/11/2018 HISTORY: cp/abd pain COMPARISON: 04/24/2018 FINDINGS: LUNGS: Vascular congestion and right-sided infiltrate PLEURA: No significant pleural effusion identified, no pneumothorax apparent. CARDIOVASCULAR: Moderate to severe cardiomegaly OSSEOUS STRUCTURES: No significant abnormalities. VISUALIZED UPPER ABDOMEN: Normal. OTHER FINDINGS: None. IMPRESSION: Moderate vascular congestion and right-sided infiltrate
[2018-05-11] MEDS ORDERED: Vancomycin 1gm in NS 250ml 1 GM/250 ML BAG IVPB STA (11:04)
[2018-05-11] MEDS ORDERED: Piperacillin/Tazobact 3.375 gm 100 ML IVPB STA (11:04)
[2018-05-11 11:08] LABS: INR 1.14; PROTHROMBIN TIME 13.2 SECONDS (9.4-12.5)
[2018-05-11 11:11] LABS: PARTIAL THROMBOPLASTIN TIME 32.6 Seconds (25.1-36.5)
[2018-05-11 11:16] LABS: TROPONIN I 0.02 ng/mL
--- NOTE | 2018-05-11 11:19 | CT ---
Date of service: 05/11/2018 PROCEDURE: CT Abdomen and Pelvis without intravenous contrast HISTORY: left flank pain h/o of kidney stone COMPARISON: 01/19/2018 TECHNIQUE: Technique. Contrast dose: Radiation dose: Total exam DLP = mGy-cm. This CT exam was performed using one or more of the following dose reduction techniques: Automated exposure control, adjustment of the mA and/or kV according to patient size, and/or use of iterative reconstruction technique. FINDINGS: LOWER THORAX: Unremarkable. LIVER: Unremarkable. No gross lesion or ductal dilatation. GALLBLADDER AND BILE DUCTS: Unremarkable. PANCREAS: Unremarkable. No gross lesion or ductal dilatation. SPLEEN: Unremarkable. ADRENALS: Unremarkable. No mass. KIDNEYS AND URETERS: 4 millimeter left lower pole ureteral calculus. Moderate left hydronephrosis. Left ureteral stent appears to have migrated inferiorly, with the proximal limb situated in the proximal ureter. VASCULATURE: Unremarkable. No aortic aneurysm. BOWEL: Unremarkable. No obstruction. No gross mural thickening. APPENDIX: Unremarkable. Normal appendix. PERITONEUM: Unremarkable. No free fluid. No free air. LYMPH NODES: Unremarkable. No enlarged lymph nodes. BLADDER: Unremarkable. REPRODUCTIVE: Unremarkable. BONES: No acute fracture. OTHER FINDINGS: None. IMPRESSION: 4 millimeter left lower pole ureteral calculus. Moderate left hydronephrosis. Left ureteral stent appears to have migrated inferiorly, with the proximal limb situated in the proximal ureter.
[2018-05-11 11:20] LABS: ALB/GLOB RATIO 1.1 (1.1-1.8); ALBUMIN 4.2 g/dL (3.0-4.8); CALCIUM 9.1 mg/dL (8.4-10.5)
[2018-05-11 12:55] LABS: URINE BILIRUBIN NEGATIVE (NEGATIVE); URINE BLOOD TRACE-INTACT (NEGATIVE); URINE GLUCOSE (UA) NEGATIVE (NEGATIVE); URINE LEUKOCYTE ESTERASE MODERATE Leu/uL (NEGATIVE); URINE PROTEIN TRACE mg/dL (<30 mg/dL); URINE UROBILINOGEN 0.2 E.U./dL (<1 E.U./dL)
--- NOTE | 2018-05-11 12:57 | HP ---
Copied To: Sammy Santiago MD Attending MD: Sammy Santiago MD HISTORY OF PRESENT ILLNESS: The patient is 37 years old, known to me from multiple previous admissions, very noncompliant. Came to Emergency Room because of increasing leg swelling, complaint of shortness of breath, complaint of leg pain, complaint of feeling nauseous. Did not have fevers. Complaint of being congested. PAST MEDICAL HISTORY: Significant for, 1. Recurrent pancreatitis. 2. Morbid obesity. 3. Nonischemic cardiomyopathy. 4. Chronic kidney disease. 5. Nephrolithiasis. 6. History of hydronephrosis, had stent placed that need to be replaced. 7. Bilateral leg edema. ALLERGY: HE IS ALLERGIC TO LUZ INHIBITORS. MEDICATIONS AT HOME: He is on spironolactone 25 daily, Reglan 10 mg t.i.d. p.r.n., Dilaudid 2 mg t.i.d. p.r.n. Lasix 40 mg twice a day, Pepcid 20 mg daily, Coreg 12.5 twice a day, Eliquis 2.5 twice a day, pancreatic enzyme and nebulizer treatment. SOCIAL HISTORY: He still smokes. He used to be a heavy alcoholic. He still smokes almost 10 cigarettes to half a pack. REVIEW OF SYSTEMS: Significant for back pain. Significant for left flank pain. Complained of shortness of breath and leg swelling. PHYSICAL EXAMINATION: GENERAL: He is awake, alert, oriented, able to communicate. VITAL SIGNS: He is afebrile, pulse 106, respirations 24, blood pressure 140/96. LUNGS: Bilateral soft crackle at bases. Otherwise, there are distant breath sounds. HEART: S1 and S2 audible. ABDOMEN: Soft, obese, nontender. No rebound. No guarding. NEUROLOGICAL: The patient is awake, alert, oriented, communicative. EXTREMITIES: Moves all extremity. Bilateral leg edema. LABORATORY EXAM: His CT scan of the abdomen and pelvis shows 4 mm left lower pole ureteral calculus, moderate left hydronephrosis, left ureteral stent appears to have migrated inferiorly. X-ray chest shows moderate vascular congestion and right-sided infiltrate. ASSESSMENT: 1. Right lower lobe infiltrate. 2. Congestive heart failure. 3. Left hydronephrosis. 4. Nephrolithiasis. 5. Nonischemic cardiomyopathy. 6. History of recurrent pancreatitis. PLAN: We will start him on Rocephin. Cardiology consult, Dr. Jay and Urology consult, Dr. Love have been requested. We will follow up his CBC, CMP and electrolyte in the a.m. Sammy Santiago MD
[2018-05-11 13:01] LABS: URINE APPEARANCE CLEAR (CLEAR); URINE COLOR YELLOW (YELLOW)
[2018-05-11 13:22] LABS: URINE BACTERIA TRACE (NEG)
[2018-05-11] MEDS ORDERED: Morphine 4 mg/ml ISec IVP STA (13:58)
[2018-05-11] MEDS: cefTRIAXone 1 gm 1 GM/100 ML BAG IVPB SCH (14:08)
--- NOTE | 2018-05-11 15:42 | CP.PCM.CON ---
History of Present Illness - History of Present Illness History of Present Illness: Seen and examined at bedside this afternoon, chart reviewed. Request for consult is for Abdominal pain. HPI: This 37 year old morbildy obese male with history of chronic pancreatitis, Renal insuffiency, CHF, Left Ureteral stent known to our practice from multiple admission [place] [facility] [place] c/o of LE extremity swelling, SOB, and Left flank pain, and nausea for a couple of days. Patient endorses that he has pain to left flank that radiates to abdomen, and it is diffuse. No nausea now, he is thristy, prior to admission he felt sweaty. He denies vomiting, diarrhea, he had a formed BM today, he does not observe for blood. He had ct scan of abdomen and pelvis w/ no contrast and no acute findings in bowel, liver, pancreas except for 4 mm left lwer pole stone w/ moderate left hyrdronephrosis and Left ureteral stent appears to have migrated. No hematuria but some dysuria. He also had CXR show vascular congestion and right sided infiltrate, patient says when he takes a deep breath it makes pain worse , no respiratory distress. PMH: diverticulitis, chronic pancreatitis, kidney stones and hydronephrosis s/p Left renal stent placement, HTN, renal insuffiency, non ischemic cardiomyopathy , Afib on Eliquis PSH: ureteral stent placement, cholecystectomy ,eus 07/2016( BG sludge/gastritis , colon 2016 (colon polyps) Social: prior ETOH abuse, denies illicit drugs Family hx: noncontributory Allergy: Kimani inhibitors Meds: MAR Reviewed Past Patient History - Infectious Disease Hx of Infectious Diseases: None - Tetanus Immunizations Tetanus Immunization: Unknown - Past Medical History & Family History Past Medical History?: Yes - Past Social History Smoking Status: Heavy Smoker > 10 Cigarettes Daily - CARDIAC Hx Cardiac Disorders: Yes (cardiomyopathy) Hx Cardia Arrhythmia: Yes Hx Congestive Heart Failure: Yes Hx Hypertension: Yes Hx Pacemaker: No Hx Peripheral Edema: Yes (ble +3 pitting) Hx Peripheral Vascular Disease: Yes - PULMONARY Hx Respiratory Disorders: No Hx Sleep Apnea: (pt denies sleep apnea) - NEUROLOGICAL Hx Neurological Disorder: No - HEENT Hx HEENT Problems: No - RENAL Hx Chronic Kidney Disease: Yes (hydronephrosis, L ureteral pigtail stent) Hx Kidney Stones: Yes Hx Renal Failure: Yes - ENDOCRINE/METABOLIC Hx Endocrine Disorders: No - HEMATOLOGICAL/ONCOLOGICAL Hx Blood Disorders: No - INTEGUMENTARY Hx Dermatological Problems: No Other/Comment: pt refusing to have skin assessed - MUSCULOSKELETAL/RHEUMATOLOGICAL Hx Musculoskeletal Disorders: Yes Hx Back Pain: Yes Hx Falls: No Hx Fractures: Yes (r ankle) Hx Gout: Yes - GASTROINTESTINAL Hx Gastrointestinal Disorders: Yes (morbidly obese) Hx Diverticulitis: Yes Hx Gastroesophageal Reflux: Yes Hx Pancreatitis: Yes - GENITOURINARY/GYNECOLOGICAL Hx Genitourinary Disorders: Yes (urinary retention) Hx Hematuria: Yes Hx Urinary Tract Infection: Yes Other/Comment: pylonephritis - PSYCHIATRIC Hx Psychophysiologic Disorder: No Hx Emotional Abuse: No Hx Physical Abuse: No Hx Substance Use: No Other/Comment: etoh in the past none since pancreatitis - SURGICAL HISTORY Hx Cholecystectomy: Yes - ANESTHESIA Hx Anesthesia: Yes Hx Anesthesia Reactions: Yes (NAUSEA) Hx Malignant Hyperthermia: No Meds Allergies/Adverse Reactions: Allergies Allergy/AdvReac Type Severity Reaction Status Date / Time KIMANI Inhibitors Allergy Severe ANGIOEDEMA Verified 05/11/18 10:20 - Medications Medications: Current Medications Amylase (Pancrease 50614 U-5000 [id number] U) 5,000 unit PO AC [facility] Apixaban (Eliquis) 2.5 mg PO BID [facility] PRN Reason: Protocol Carvedilol (Coreg) 12.5 mg PO BID [facility] Famotidine (Pepcid) 20 mg PO DAILY [facility] Last Admin: 05/11/18 12:21 Dose: 20 mg Furosemide (Lasix) 40 mg IVP DAILY [facility] Ceftriaxone Sodium (Rocephin 1 Gram Ivpb) 1 gm in 100 mls @ 100 mls/hr IVPB DAILY [facility] PRN Reason: Protocol Last Admin: 05/11/18 14:08 Dose: 100 mls/hr Spironolactone (Aldactone) 25 mg PO DAILY [facility] Last Admin: 05/11/18 12:21 Dose: 25 mg Physical Exam - Constitutional Appears: No Acute Distress - Head Exam Head Exam: NORMOCEPHALIC - Eye Exam Eye Exam: Normal appearance. absent: Scleral icterus - ENT Exam ENT Exam: Mucous Membranes Moist - Neck Exam Neck exam: Positive for: Normal Inspection - Respiratory Exam Respiratory Exam: Rales, NORMAL BREATHING PATTERN. absent: Wheezes, Respiratory Distress - Cardiovascular Exam Cardiovascular Exam: +S1, +S2 - GI/Abdominal Exam GI & Abdominal Exam: Normal Bowel Sounds, Soft, Tenderness. absent: Guarding, Rebound Additional comments: (+) tenderness left side, obese abdomen - Extremities Exam Extremities exam: Positive for: pedal edema, pedal pulses present. Negative for : calf tenderness - Neurological Exam Neurological exam: Alert, Oriented x3 - Skin Skin Exam: Dry, Warm Results - Vital Signs Recent Vital Signs: Last Vital Signs Temp 97.9 F 05/11/18 12:29 Pulse 109 H 05/11/18 14:23 Resp 24 05/11/18 12:29 BP 146/94 H 05/11/18 12:29 Pulse Ox 100 05/11/18 12:29 - Labs Result Diagrams: 05/11/18 10:45 05/11/18 10:45 Labs: Laboratory Results - last 24 hr 05/11/18 12:50 Urine Color Yellow Urine Appearance Clear Urine pH 6.0 Ur Specific [place] 1.015 Urine Protein Trace H Urine Glucose (UA) Negative Urine Ketones Negative Urine Blood Trace-intact H Urine Nitrate Negative Urine Bilirubin Negative Urine Urobilinogen 0.2 Ur Leukocyte Esterase Moderate H Urine RBC 2 - 5 Urine WBC 5 - 10 Ur Epithelial Cells 1 - 3 Urine Bacteria Trace Assessment & Plan - Assessment and Plan (Free Text) Assessment: Assessment: Left Flank/Abdominal pain, may be secondary to renal stone and migrated stent Leukcytosos Right lung infliltrate Acute Renal Insufficiency Elevated BNP, CHF Morbid Obesity H/O Chronic Pancreatitis H/O Atrial Fibrillation on Eliquis PLAN: start clear liquid monitor electrolytes on Lasix and Aldactone Pain mgt when on solid food, on Pancrease On low dose Pepcid urology FU Thank you for this consult and for allowing us to participate in your patient's care. Further recommendation based upon clinical course. Seen and discussed with Dr. Choe.
[2018-05-11] MEDS: HYDROmorphone 2 mg/ml ISec IVP PRN ×2 (16:17→20:19)
--- NOTE | 2018-05-11 16:19 | PN ---
Copied To: Kamari Love MD Attending MD: Kamari Love MD DATE: 05/11/2018 CHIEF COMPLAINT: Shortness of breath. HISTORY OF PRESENT ILLNESS: This patient is well known to me from multiple prior admissions. The patient is an extremely noncompliant, morbidly obese diabetic with a history of a small renal calculus. Through discussions with the patient's primary doctor, he has been having multiple episodes of congestive heart failure and worsening cardiomyopathy. He presented again complaining of increasing leg swelling and shortness of breath, complaining of nauseousness and leg pain. No complaint of fever or chills. Does complain of being congested. He has a past medical history as noted above plus chronic pancreatitis, morbid obesity, cardiomyopathy, chronic kidney disease, nephrolithiasis, hydronephrosis and leg edema. On CT scan, a stone again is noted in the lower pole. There is mention that the stent has migrated somewhat inferiorly. There is hydronephrosis noted on the left side. On laboratory exam, the patient's BNP is 2410. Vital signs: Afebrile, temp of 97.9, pulse of 108, BP 146/94, respirations 24. IMPRESSION AND PLAN: The patient is extremely noncompliant, morbidly obese diabetic with multiple chronic medical issues. Currently admitted with congestive heart failure and worsening leg edema. Urologically, the plan will be to start on intravenous antibiotics for now. I will schedule the patient for cystoscopy, removal and reinsertion of the left ureteral stent regarding the left hydronephrosis. The hydronephrosis in the past appears to be due to vesicoureteral reflux with the stent in position. There is no evidence of any obstructive lesions in the ureter or other calculi other than the noted one in the lower pole. The patient will need to be medically improved prior to anesthesia, but we will plan on attempting this on Monday. Please keep the patient n.p.o. after midnight on Monday night. Kamari Love MD
[2018-05-11] MEDS ORDERED: Pneumococcal 23-Valent Vaccine IM ONE (16:35)
[2018-05-11] MEDS: Amylase/Lipase/Protease 5,000 Units ECC PO SCH (17:36)
[2018-05-11] MEDS: Milrinone 20mg/100ml D5W 100 ML IV PRN (18:23)
--- NOTE | 2018-05-11 19:15 | CARD ---
APPROVED REPORT Date of service: 05/11/2018 EKG Measurement Heart [id number] <Conclusion> Atrial fibrillation with premature ventricular or aberrantly conducted complexes Nonspecific T wave abnormality Abnormal ECG
[2018-05-12] MEDS: HYDROmorphone 2 mg/ml ISec IVP PRN ×6 (00:05→21:14)
[2018-05-12] MEDS: Milrinone 20mg/100ml D5W 100 ML IV PRN (00:07)
--- NOTE | 2018-05-12 05:40 | CON ---
Copied To: Shayna Thomson MD Attending MD: Shayna Thomson MD DATE: 05/11/2018 REASON FOR CONSULTATION AND FOLLOWUP: Shortness of breath, decompensated congestive heart failure, morbid obesity, CKD. BRIEF CLINICAL HISTORY: This is a 37-year-old male with a past medical history significant for CKD, morbid obesity, diabetes, noncompliance with medication, history of recurrent pancreatitis, history of alcohol abuse in the past, admitted with complaint of shortness of breath, seen on Monday by Dr. Don, and said if his symptoms get worse to come to the emergency room. So patient came today to the emergency room complaining of sharp chest pain as well, and leg swelling, and shortness of breath, especially on the left side. PAST MEDICAL HISTORY: Significant for hypertension, morbid obesity, congestive heart failure secondary to alcohol abuse in the past, history of nonischemic cardiomyopathy status post cardiac catheterization, recurrent pancreatitis, history of renal colic and stone in the kidney. PREVIOUS CARDIAC WORKUP: The patient had a cardiac catheterization 2 to 3 years ago at [facility], was told normal coronaries. SOCIAL HISTORY: Used to drink heavy alcohol, but claimed that he quit, last time he drank at sister's wedding, just a glass of wine. History of tobacco abuse, still smokes half a pack. History of multiple admissions in the past with pancreatitis secondary to alcohol abuse. RECENT CARDIAC WORKUP: The patient had last echo on 08/05/2017 that showed ejection fraction of 40%, RV systolic pressure of 18, trace mitral regurgitation, trace tricuspid regurgitation, and moderately dilated ventricle. Echo, patient had a repeat echo done on last admission that is 04/25/2018, that shows 4 chamber dilatation consistent with cardiomyopathy, ejection fraction 30% to 35%, patient on Primacor, moderate mitral regurgitation, moderate tricuspid regurgitation that is more consistent with the patient's condition on previous echo. The last echo that I mentioned dated 08/05/2017 showed ejection fraction of 40%. The patient had a MUGA scan done dated 08/04/2017 that showed ejection fraction of 55%. EKG shows atrial fibrillation, history of chronic atrial fibrillation, on anticoagulation. Previous EKG also shows atrial fibrillation. CURRENT MEDICATIONS: The patient is taking at home spironolactone, metoclopramide, Dilaudid, furosemide, carvedilol, Eliquis. Recently carvedilol was changed because patient was seen in Dr. Don's office, so Cardizem is started because rate was fast and patient's low blood pressure, so I told him to start Cardizem 30 mg 3 times a day and Coreg was held. ALLERGIES: TO LUZ INHIBITORS, PATIENT GETS ANGIOEDEMA. REVIEW OF SYSTEMS: As per HPI. PHYSICAL EXAMINATION VITAL SIGNS: Temperature afebrile, heart rate 60, blood pressure 138/99. HEENT: PERRLA. Extraocular muscles intact. NECK: Supple. No carotid bruit or thyromegaly. CHEST: Clear to auscultation. HEART: S1 and S2 regular. ABDOMEN: Soft. EXTREMITIES: Clubbing and cyanosis negative. LABORATORY DATA: Blood workup as follows, WBC 11.8, hemoglobin 14.2, hematocrit 43.2, platelet count 319. Chemistry shows sodium 141, potassium 4, chloride 101, carbon dioxide 29, anion gap of 15, BUN 45, creatinine 1.9. EKG showed atrial fibrillation with rapid ventricular rate. IMPRESSION AND PLAN: Acute decompensated congestive heart failure. Recent chest x-ray, very underpenetrated film, moderate vascular congestion, right-sided infiltrate mentioned. CAT scan of the abdomen and pelvis shows 4 mm left lower pole ureteral calculus, moderate hydronephrosis, left ureteral stent migrated inferiorly. A 37-year-old male with a past medical history significant for nonobstructive coronary artery disease, nonischemic cardiomyopathy, 4-chamber dilatation, recent echo ejection fraction, 30% to 35%, moderate MR, moderate TR, admitted with decompensated congestive heart failure, chronic kidney disease, stone in the ureter as well as stent in the ureter, history of chronic atrial fibrillation, morbid obesity, history of recurrent pancreatitis in the past secondary to alcohol abuse, most likely symptoms secondary to cardiomyopathy. We will hold Coreg because of the patient's drop in blood pressure and include Cardizem to control the heart rate. PATIENT IS ALLERGIC TO LUZ, SO HE CANNOT BE GIVEN LUZ OR ARB. Continue Eliquis, increase to 5 mg b.i.d., and increase Primacor. Discontinue Coreg and put hydralazine. Emphasized the importance of patient to have weight reduction. Patient should consider gastric bypass for weight reduction. For now, continue diuretics. We will start Primacor for 48 hours. Continue spironolactone. Discontinue Coreg and put Cardizem for rate control; because patient has a borderline blood pressure, cannot tolerate Coreg and Cardizem together. We will follow with you. Thank you, Dr. Santiago, for providing us the opportunity in taking care of the patient, Gareth Leblanc. Shayna Thomson MD
[2018-05-12] MEDS: Amylase/Lipase/Protease 5,000 Units ECC PO SCH ×3 (08:09→16:14)
[2018-05-12] MEDS: cefTRIAXone 1 gm 1 GM/100 ML BAG IVPB SCH (10:14)
--- NOTE | 2018-05-12 14:23 | CP.PCM.PN ---
Subjective - Date & Time of Evaluation Date of Evaluation: 05/12/18 Time of Evaluation: 09:10 - Subjective Subjective: PGY5 GI Follow-up Pt seen and examined bedside Denies any abd pain Still has lower back pain tolerating diet +BM ROS: 12 point ROS conducted, neg other than above Objective - Vital Signs/Intake and Output Vital Signs (last 24 hours): Temp Pulse Resp BP Pulse Ox 97.6 F 66 18 132/79 95 05/12/18 11:29 05/12/18 11:29 05/12/18 11:29 05/12/18 11:29 05/12/18 00:01 Intake and Output: 05/12/18 05/12/18 06:59 18:59 Intake Total 100 1160 Output Total 700 Balance 100 460 - Medications Medications: Current Medications Amylase (Pancrease 23259 U-5000 U-42386 U) 5,000 unit PO AC [facility] Last Admin: 05/12/18 12:45 Dose: 5,000 unit Apixaban (Eliquis) 5 mg PO BID [facility] PRN Reason: Protocol Last Admin: 05/12/18 10:15 Dose: 5 mg Diltiazem HCl (Cardizem) 30 mg PO TID [facility] Last Admin: 05/12/18 10:15 Dose: 30 mg Famotidine (Pepcid) 20 mg PO DAILY [facility] Last Admin: 05/12/18 10:14 Dose: 20 mg Furosemide (Lasix) 40 mg IVP 0800,1400 [facility] Last Admin: 05/12/18 08:18 Dose: 40 mg Hydromorphone HCl (Dilaudid) 2 mg IVP Q4H PRN PRN Reason: Pain, severe (8-10) Last Admin: 05/12/18 12:45 Dose: 2 mg Ceftriaxone Sodium (Rocephin 1 Gram Ivpb) 1 gm in 100 mls @ 100 mls/hr IVPB DAILY [facility] PRN Reason: Protocol Last Admin: 05/12/18 10:14 Dose: 100 mls/hr Milrinone Lactate/Dextrose (Primacor 20mg/100ml D5w) 100 mls @ 12.375 mls/hr IV .Q8H5M PRN; Protocol; 0.2 MCG/KG/MIN PRN Reason: TITRATE PER MD ORDER Stop: 05/14/18 07:00 Last Admin: 05/12/18 00:07 Dose: 0.2 mcg/kg/min, 12.375 mls/hr Spironolactone (Aldactone) 25 mg PO DAILY [facility] Last Admin: 05/12/18 10:14 Dose: 25 mg - Labs Labs: PT 13.2 SECONDS (9.4-12.5) H 05/11/18 10:45 INR 1.14 05/11/18 10:45 APTT 32.6 Seconds (25.1-36.5) 05/11/18 10:45 - Constitutional Appears: Well, No Acute Distress - Head Exam Head Exam: ATRAUMATIC, NORMOCEPHALIC - Eye Exam Eye Exam: Normal appearance - ENT Exam ENT Exam: Mucous Membranes Moist, Normal Exam - Respiratory Exam Respiratory Exam: Clear to Ausculation Bilateral, NORMAL BREATHING PATTERN. absent: Rales, Rhonchi, Wheezes, Respiratory Distress - Cardiovascular Exam Cardiovascular Exam: REGULAR RHYTHM, +S1, +S2 - GI/Abdominal Exam GI & Abdominal Exam: Soft, Normal Bowel Sounds. absent: Guarding, Rigid, Tenderness, Organomegaly, Rebound - Extremities Exam Extremities Exam: Pedal Edema. absent: Joint Swelling - Neurological Exam Neurological Exam: Alert, Awake, Oriented x3 - Psychiatric Exam Psychiatric exam: Normal Affect, Normal Mood - Skin Skin Exam: Dry, Intact, Normal Color, Warm Assessment and Plan - Assessment and Plan (Free Text) Assessment: Left Flank/Abdominal pain, may be secondary to renal stone and migrated stent Leukcytosos Right lung infliltrate Acute Renal Insufficiency Elevated BNP, CHF Morbid Obesity H/O Chronic Pancreatitis H/O Atrial Fibrillation on Eliquis PLAN: advance diet as tolerated monitor electrolytes on Lasix and Aldactone Pain mgt when on solid food, on Pancrease On low dose Pepcid urology FU will D/W Dr. Choe
[2018-05-12] MEDS ORDERED: Vancomycin 500mg in NS 500 MG/100 ML BAG IVPB ONE (17:22)
--- NOTE | 2018-05-12 23:35 | PN ---
Copied To: Sammy Santiago MD Attending MD: Sammy Santiago MD DATE: 05/12/2018 SUBJECTIVE: Patient is 37 years old. Seen and examined. Complained of left flank pain. No abdominal pain. Does complain of shortness of breath, leg swelling. Recently saw Dr. Don who increased his Lasix to 80 every 12 hours. She also did EKG in her office and was found to be tachycardiac. His Coreg was stopped and started on Cardizem. Still complaining of left flank pain. His pain seems to be out of proportion to his sickness. also pain medication round the clock without missing the dose. I have spoken to him many times about dependence and abuse potential, but he states that he is really in pain and he required this medication. PHYSICAL EXAMINATION: GENERAL: Today he looks comfortable. No shortness of breath at rest. VITAL SIGNS: He is afebrile. Pulse 52, respirations 18, blood pressure 140/102. LUNGS: Bilateral fair airflow, decreased at bases. HEART: S1, S2, audible. ABDOMEN: Soft, obese, nontender. No rebound, no guarding. NEUROLOGICAL: Patient is awake, alert, oriented, communicative. Moves all extremities. EXTREMITIES: Bilateral legs, + 1 edema. LABORATORY DATA: He has blood sugar. Blood culture positive for gram positive cocci. His BNP is 2410. Urine cultures are pending. ASSESSMENT: 1. Congestive heart failure exacerbation. 2. Nonischemic cardiomyopathy. 3. Left nephrolithiasis. 4. Recurrent pancreatitis. 5. History of hydronephrosis, status post stent placement. 6. Morbid obesity. PLAN: Currently patient is on spironolactone. He is on diltiazem. He is on Eliquis. He is on Lasix 40 every 12 hours. He has been started on Primacor drip. I will give him a dose of vancomycin, get ID evaluation for bacteremia. I do not know if it is a contamination; however, he will be given 1 dose of vancomycin and will repeat the culture, and we will follow up his CBC and CMP in the a.m. Sammy Santiago MD
[2018-05-13] MEDS: HYDROmorphone 2 mg/ml ISec IVP PRN ×6 (01:13→22:00)
[2018-05-13 06:37] LABS: EOS # 0.2 (0.0-0.7); EOS % 1.7 % (1.5-5.0); GRAN # 5.64 (1.4-6.5); GRAN % 64.3 % (50.0-68.0); HEMOGLOBIN 13.6 g/dL (14.0-18.0); LYMPH # 1.7 (1.2-3.4); MEAN CELL VOLUME 96.1 fl (80.0-105.0); MEAN CORPUSCULAR HEMOGLOBIN 31.4 pg (25.0-35.0); MEAN CORPUSCULAR HGB CONC 32.7 g/dl (31.0-37.0); MEAN PLATELET VOLUME 9.7 fl (7.0-11.0); MONO # 1.3 (0.1-0.6); RBC 4.33 10^6/uL (3.5-6.1); RED CELL DISTRIBUTION WIDTH 14.7 % (11.5-14.5); WHITE BLOOD COUNT 8.8 10^3/ul (4.5-11.0)
[2018-05-13 07:25] LABS: ALB/GLOB RATIO 1.1 (1.1-1.8); CALCIUM 9.2 mg/dL (8.4-10.5)
[2018-05-13] MEDS: Amylase/Lipase/Protease 5,000 Units ECC PO SCH ×3 (08:42→17:00)
--- NOTE | 2018-05-13 08:44 | CON ---
Copied To: Angelica Don MD Attending MD: Angelica Don MD DATE: 05/12/2018 REASON FOR CONSULTATION: Acute kidney injury, shortness of breath, CHF. HISTORY OF PRESENTING ILLNESS: A 37-year-old morbidly obese young black male, lying in bed. He came to the emergency room because of feeling of dyspnea, dyspnea on exertion, inability to walk, subjective feeling of swelling of the legs. He was seen in the office on Monday. At that time, his lungs were clear. He had minimal lower extremity edema. He was on Lasix 80 b.i.d. He was found to have atrial fibrillation/flutter with a rate of 99. Case was discussed with Dr. Thomson at that time. He was advised to change his Coreg to Cardizem 30 t.i.d. The patient reports that he never got a chance to do that. He denies any cough. He denies any fevers. He denies any burning in the urine. In the emergency room, he was found to have a blood pressure of 146/94. Heart rate of 111, respiratory rate of 20, temperature 97.5. His lab work showed BUN of 45 and a creatinine of 1.9. BNP was slightly elevated at 2410. Hence consultation is requested for acute kidney injury? PAST MEDICAL AND SURGICAL HISTORY: Morbid obesity, hypertension, cardiomyopathy, left ventricular hypertrophy, atrial fibrillation/flutter, chronic kidney disease stage 3, left hydronephrosis, left kidney stones, left ureteral stent, recurrent UTI, chronic pain, narcotic dependence, chronic pancreatitis. FAMILY HISTORY: Noncontributory. SOCIAL HISTORY: Smoker, denies current alcohol use, no IV drug abuse. ALLERGIES: LUZ INHIBITORS. MEDICATIONS AT HOME: Aldactone 25 daily, Lasix 80 b.i.d., Coreg 12.5 b.i.d., Eliquis 2.5 b.i.d., Dilaudid, Reglan, pancreatic enzymes. REVIEW OF SYSTEMS: All systems are reviewed, pertinent positives as mentioned in the history of presenting illness, rest unremarkable. PHYSICAL EXAMINATION: GENERAL: Morbidly obese, middle-aged male, lying in bed in mild distress. VITAL SIGNS: Blood pressure 132/79, heart rate 66, respiratory rate 18, temperature 97.6. HEENT: Normocephalic, atraumatic, positive pallor. NECK: Supple, no JVD. LUNGS: Bilateral equal air entry, bilateral equal expansion, no rales appreciated. CARDIAC: S1 and S2, irregular rate and rhythm, no murmur, no rub. ABDOMEN: Obese, distended, soft, tenderness in the left lower back, bowel sounds present. EXTREMITIES: Trace lower extremity edema. INTAKE AND OUTPUT: 212/400. LABORATORY DATA: WBC 11.8, hemoglobin 14, hematocrit 43, platelets 319. Sodium 141, potassium 4.4, chloride 101, CO2 of 29, BUN 45, creatinine 1.9, glucose 128, calcium 9.1, magnesium 2.2, CPK 93, BNP 2410. Urinalysis: Yellow, clear, pH 6, specific gravity 1.015, protein trace, blood trace, leukocyte esterase moderate. Blood culture: Gram-positive cocci. CT of the abdomen and pelvis: A 4-mm left lower pole ureteral calculus, moderate left hydronephrosis, left ureteral stent appears to have migrated inferiorly with the proximal situated in the proximal ureter. CURRENT MEDICATIONS: Aldactone 25, Cardizem 30 t.i.d., Dilaudid, Eliquis 5 b.i.d., Lasix 40 IV every 12, Pancrease, Pepcid, milrinone 0.2 mcg/kg/minute, ceftriaxone 1 g daily. ASSESSMENT: 1. Stable chronic kidney disease stage 3, creatinine of 1.9 is probably his baseline. His creatinine was lower last admission because he was volume overloaded. 2. Cardiomyopathy, congestive heart failure, volume overload. 3. Staphylococcus bacteremia, ? contaminant. 4. History of left hydronephrosis, left ureteral stent. 5. Recurrent pancreatitis. 6. Narcotic dependence. PLAN: 1. Case is discussed with Dr. Thomson. Plan is for Primacor for 24-48 hours to help diurese, increase contractility. 2. Agree with Lasix 40 IV every 12. 3. Urology consultation. 4. Limit narcotics. Angelica Don MD
[2018-05-13] MEDS: cefTRIAXone 1 gm 1 GM/100 ML BAG IVPB SCH (09:38)
[2018-05-13 11:28] LABS: URINE BILIRUBIN NEGATIVE (NEGATIVE); URINE BLOOD MODERATE (NEGATIVE); URINE GLUCOSE (UA) NEGATIVE (NEGATIVE); URINE LEUKOCYTE ESTERASE SMALL Leu/uL (NEGATIVE); URINE PROTEIN NEGATIVE mg/dL (<30 mg/dL); URINE UROBILINOGEN 0.2 E.U./dL (<1 E.U./dL)
[2018-05-13 11:30] LABS: URINE APPEARANCE CLEAR (CLEAR); URINE COLOR YELLOW (YELLOW)
[2018-05-13 12:05] LABS: URINE BACTERIA NEG (NEG); URINE EPITHELIAL CELLS 0 - 2 /hpf (0-5); URINE RBC 0 - 2 /hpf (0-2); URINE WBC 0 - 2 /hpf (0-6)
--- NOTE | 2018-05-13 16:19 | CP.PCM.CON ---
History of Present Illness - History of Present Illness History of Present Illness: 37 year old male with PMH of left sided pyelonephritis with obstructing left ureteral calculus S/P cystoscopy, placement of left pigtail stent , morbid obesity with BMI 48, HTN, alcoholic cardiomyopathy, history of pancreatitis, history of kidney stones, history of acute sigmoid diverticulitis came in to [facility] because of sharp pain in the back and left flank area. He denies fever or chills, no nausea or vomiting, no chest pain, no SOB, no headache or dizziness, no cough or colds, no diarrhea, no dysuria, no dysphagia. CT scan is showing left sided hydronephrosis and nephrolithiasis and he is scheduled for a Urologic procedure. Infectious Diseases consult is requested to evaluate for antibiotics. Review of Systems - Review of Systems All systems: reviewed and no additional remarkable complaints except (as per HPI ) Past Patient History - Infectious Disease Hx of Infectious Diseases: None - Tetanus Immunizations Tetanus Immunization: Unknown - Past Medical History & Family History Past Medical History?: Yes - Past Social History Smoking Status: Light Smoker < 10 Cigarettes Daily - CARDIAC Hx Cardiac Disorders: Yes (cardiomyopathy) Hx Cardia Arrhythmia: Yes Hx Congestive Heart Failure: Yes Hx Hypertension: Yes Hx Pacemaker: No Hx Peripheral Edema: Yes (ble +3 pitting) Hx Peripheral Vascular Disease: Yes - PULMONARY Hx Respiratory Disorders: No Hx Sleep Apnea: (pt denies sleep apnea) - NEUROLOGICAL Hx Neurological Disorder: No - HEENT Hx HEENT Problems: No - RENAL Hx Chronic Kidney Disease: Yes (hydronephrosis, L ureteral pigtail stent) Hx Kidney Stones: Yes Hx Pyelonephritis: Yes Hx Renal Failure: Yes Other/Comment: left calculus 11/2017 - ENDOCRINE/METABOLIC Hx Endocrine Disorders: No - HEMATOLOGICAL/ONCOLOGICAL Hx Blood Disorders: No - INTEGUMENTARY Hx Dermatological Problems: Yes (foul smelling body odor) Other/Comment: pt refusing to have skin assessed - MUSCULOSKELETAL/RHEUMATOLOGICAL Hx Musculoskeletal Disorders: Yes Hx Back Pain: Yes Hx Falls: No Hx Fractures: Yes (r ankle) Hx Gout: Yes - GASTROINTESTINAL Hx Gastrointestinal Disorders: Yes (morbidly obese, abd pain) Hx Diverticulitis: Yes Hx Gastroesophageal Reflux: Yes Hx Pancreatitis: Yes (quit drinking since pancreatitis) Hx Ulcer: Yes (peptic) - GENITOURINARY/GYNECOLOGICAL Hx Genitourinary Disorders: Yes (urinary retention, dysuria) Hx Hematuria: Yes Hx Urinary Tract Infection: Yes Other/Comment: pylonephritis - PSYCHIATRIC Hx Psychophysiologic Disorder: No Hx Emotional Abuse: No Hx Physical Abuse: No Hx Substance Use: No Other/Comment: etoh in the past none since pancreatitis - SURGICAL HISTORY Hx Surgeries: Yes Hx Cholecystectomy: Yes Other/Comment: left urteral pigtail stent and replacement, cysto - ANESTHESIA Hx Anesthesia: Yes Hx Anesthesia Reactions: Yes (NAUSEA) Hx Malignant Hyperthermia: No Meds Allergies/Adverse Reactions: Allergies Allergy/AdvReac Type Severity Reaction Status Date / Time LUZ Inhibitors Allergy Severe ANGIOEDEMA Verified 05/11/18 10:20 - Medications Medications: Current Medications Amylase (Pancrease 32228 U-5000 U-70023 U) 15,000 unit PO AC [facility] Last Admin: 05/12/18 16:14 Dose: 15,000 unit Apixaban (Eliquis) 5 mg PO BID [facility] PRN Reason: Protocol Last Admin: 05/12/18 17:42 Dose: 5 mg Diltiazem HCl (Cardizem) 30 mg PO TID [facility] Last Admin: 05/12/18 17:00 Dose: 30 mg Famotidine (Pepcid) 20 mg PO DAILY [facility] Last Admin: 05/12/18 10:14 Dose: 20 mg Furosemide (Lasix) 40 mg IVP 0800,1400 [facility] Last Admin: 05/12/18 16:13 Dose: 40 mg Hydromorphone HCl (Dilaudid) 2 mg IVP Q4H PRN PRN Reason: Pain, severe (8-10) Last Admin: 05/13/18 05:16 Dose: 2 mg Ceftriaxone Sodium (Rocephin 1 Gram Ivpb) 1 gm in 100 mls @ 100 mls/hr IVPB DAILY [facility] PRN Reason: Protocol Last Admin: 05/12/18 10:14 Dose: 100 mls/hr Milrinone Lactate/Dextrose (Primacor 20mg/100ml D5w) 100 mls @ 12.375 mls/hr IV .Q8H5M PRN; Protocol; 0.2 MCG/KG/MIN PRN Reason: TITRATE PER MD ORDER Stop: 05/14/18 07:00 Last Admin: 05/12/18 00:07 Dose: 0.2 mcg/kg/min, 12.375 mls/hr Spironolactone (Aldactone) 25 mg PO DAILY [facility] Last Admin: 05/12/18 10:14 Dose: 25 mg Physical Exam - Constitutional Appears: Non-toxic, Chronically Ill - Head Exam Head Exam: NORMAL INSPECTION - ENT Exam ENT Exam: Mucous Membranes Moist - Neck Exam Neck exam: Negative for: Meningismus - Respiratory Exam Respiratory Exam: Decreased Breath Sounds - Cardiovascular Exam Cardiovascular Exam: +S1, +S2 - GI/Abdominal Exam GI & Abdominal Exam: Soft. absent: Tenderness Results - Vital Signs Recent Vital Signs: Last Vital Signs Temp 98.4 F 05/13/18 06:00 Pulse 80 05/13/18 06:00 Resp 20 05/13/18 06:00 BP 119/85 05/13/18 06:00 Pulse Ox 98 05/13/18 06:00 - Labs Result Diagrams: 05/13/18 06:10 05/13/18 06:10 Labs: Laboratory Results - last 24 hr 05/13/18 06:10 WBC 8.8 D RBC 4.33 Hgb 13.6 L Hct 41.6 L MCV 96.1 MCH 31.4 MCHC 32.7 RDW 14.7 H Plt Count 264 MPV 9.7 Gran % 64.3 Lymph % (Auto) 19.0 L Cascade % (Auto) 15.0 H Eos % (Auto) 1.7 Baso % (Auto) 0.0 Gran # 5.64 Lymph # (Auto) 1.7 Cascade # (Auto) 1.3 H Eos # (Auto) 0.2 Baso # (Auto) 0.00 Assessment & Plan - Assessment and Plan (Free Text) Plan: Assessment Coagulase negative staph bacteremia, consider contamination Left sided hydronephrosis with nephrolithiasis R/O UTI history of left sided perinephric abscess with left sided pyelonephritis history of acute sigmoid diverticulitis history of severe sepsis with probable left sided pyelonephritis with obstructing left ureteral calculus S/P cystoscopy, placement of left pigtail stent morbid obesity with BMI 57 HTN alcoholic cardiomyopathy history of pancreatitis history of kidney stones Plan will repeat blood cx - patient has no indwelling hardware will switch Rocephin to Cefepime and will follow up urine cx; follow up plans of Urology will monitor clinically
--- NOTE | 2018-05-13 21:39 | PN ---
Copied To: Talita Spears MD Attending MD: Talita Spears MD DATE: 05/13/2018 SUBJECTIVE He is complaining of left-sided flank pain. Admitted with CHF. He also has nephrolithiasis on the left side. No nausea, no vomiting. Morbidly obese. REVIEW OF SYSTEMS: As per HPI. Rest of 12-point review of systems reviewed negative. PHYSICAL EXAMINATION: GENERAL: Comfortable in bed, in no acute distress. VITAL SIGNS: Temperature 98.7, heart rate 52 per minute, respiratory rate 15 per minute, blood pressure 140/70. HEENT: Pallor positive. NECK: No lymphadenopathy. CHEST: Air entry present and equal bilateral. No added sound. CARDIOVASCULAR: S1 and S2 normal. No murmur. No gallop. ABDOMEN: Soft, nontender. No hepatosplenomegaly. EXTREMITIES: 1+ edema. NEUROLOGIC: Patient is awake, alert and oriented x3. No focal sensory or motor deficit. LABORATORY DATA White count 8.8, hemoglobin 13.6, hematocrit 41.6, platelet 264. Sodium 136, potassium 5.1. BNP 2400. Previous leukocyte count 11.8. Blood culture, gram-positive cocci. ASSESSMENT: 1. Congestive cardiac failure. 2. Ischemic cardiomyopathy. 3. Left nephrolithiasis. 4. Morbid obesity. 5. Anemia, leukocytosis. PLAN: He is currently on diltiazem and Eliquis, Lasix 40 mg every 12 hours. He was started on Primacor drip. Gram-positive cocci bacteremia, on vancomycin. Complaining of left flank pain, he is getting Dilaudid every 4 hours p.r.n. for that. Eliquis 5 mg p.o. b.i.d., amylase 15,000 units daily. Talita Spears MD
[2018-05-13] MEDS: Cefepime IV 2 gm in NS 2 GM/100 ML BAG IVPB SCH (21:59)
[2018-05-14] MEDS: HYDROmorphone 2 mg/ml ISec IVP PRN ×6 (02:18→22:08)
--- NOTE | 2018-05-14 08:12 | CP.PCM.PN ---
Subjective - Date & Time of Evaluation Date of Evaluation: 05/14/18 Time of Evaluation: 06:35 - Subjective Subjective: Awake, complaints of tight breathing, going for renal stent Reason for consultation and follow up:Cardiac evaluation of shortness of breath , history of congestive heart failure, hypertension, PVD. Seen and examined by me and Dr. Thomson Objective - Vital Signs/Intake and Output Vital Signs (last 24 hours): Temp Pulse Resp BP Pulse Ox 97.7 F 69 21 129/76 98 05/14/18 05:56 05/14/18 05:56 05/14/18 05:56 05/14/18 05:56 05/14/18 05:56 Intake and Output: 05/14/18 05/14/18 06:59 18:59 Intake Total 240 Output Total 1375 Balance -1135 - Medications Medications: Current Medications Amylase (Pancrease 56437 U-5000 U-32955 U) 15,000 unit PO AC [facility] Last Admin: 05/13/18 17:00 Dose: 15,000 unit Apixaban (Eliquis) 5 mg PO BID [facility] PRN Reason: Protocol Last Admin: 05/13/18 18:05 Dose: 5 mg Diltiazem HCl (Cardizem) 30 mg PO TID [facility] Last Admin: 05/13/18 18:05 Dose: 30 mg Famotidine (Pepcid) 20 mg PO DAILY [facility] Last Admin: 05/13/18 09:38 Dose: 20 mg Furosemide (Lasix) 40 mg IVP 0800,1400 [facility] Last Admin: 05/13/18 14:09 Dose: 40 mg Hydromorphone HCl (Dilaudid) 2 mg IVP Q4H PRN PRN Reason: Pain, severe (8-10) Last Admin: 05/14/18 05:59 Dose: 2 mg Cefepime HCl (Maxipime 2gm) 2 gm in 100 mls @ 100 mls/hr IVPB Q12 [facility] PRN Reason: Protocol Stop: 05/18/18 22:01 Last Admin: 05/13/18 21:59 Dose: 100 mls/hr Spironolactone (Aldactone) 25 mg PO DAILY [facility] Last Admin: 05/13/18 09:39 Dose: 25 mg - Labs Labs: 05/13/18 06:10 05/13/18 06:10 PT 13.2 SECONDS (9.4-12.5) H 05/11/18 10:45 INR 1.14 05/11/18 10:45 APTT 32.6 Seconds (25.1-36.5) 05/11/18 10:45 - Constitutional Appears: No Acute Distress - Eye Exam Eye Exam: Normal appearance - ENT Exam ENT Exam: Mucous Membranes Dry - Respiratory Exam Respiratory Exam: Decreased Breath Sounds, NORMAL BREATHING PATTERN - Cardiovascular Exam Cardiovascular Exam: Irregular Rhythm, +S1, +S2 Additional comments: Afib/aflutter- 80's - GI/Abdominal Exam GI & Abdominal Exam: Soft, Normal Bowel Sounds - Extremities Exam Additional comments: 2+edema - Neurological Exam Neurological Exam: Alert, Awake, Oriented x3 - Psychiatric Exam Psychiatric exam: Anxious - Skin Skin Exam: Intact, Warm Assessment and Plan - Assessment and Plan (Free Text) Assessment: A 37 year old male who came in to the ER due to shortness of breath. History of hypertension, congestive heart failure secondary to alcohol abuse in the past. CKD, morbidly obese, recurrent pancreatitis, current smoker. Acute decompensated congestive heart failure. started on primacor drip and lasix to diurese. Plan: Had mild shortness of breath, nebulizer treatment given Heart rate afib/ aflutter- controlled rate On Cardizem 30 mg TID,Eliqius 5 mg BID,Lasix 40 mg BID Aldactone 25mg daily Positive blood culture, on IV antibiotics Continue current treatment Continue current medications Discontinue Primacor today Lifestyle modification Weight reduction Will follow up Plan and treatment discussed with Dr. Thomson
[2018-05-14] MEDS: Amylase/Lipase/Protease 5,000 Units ECC PO SCH ×4 (08:23→14:30)
[2018-05-14 08:28] LABS: BASO # 0.01 K/mm3 (0.0-2.0); BASO % 0.1 % (0.0-3.0); EOS # 0.2 (0.0-0.7); EOS % 2.5 % (1.5-5.0); GRAN # 6.06 (1.4-6.5); GRAN % 64.7 % (50.0-68.0); HEMOGLOBIN 14.4 g/dL (14.0-18.0); LYMPH % 20.9 % (22.0-35.0); MEAN CELL VOLUME 95.3 fl (80.0-105.0); MEAN CORPUSCULAR HEMOGLOBIN 31.9 pg (25.0-35.0); MEAN CORPUSCULAR HGB CONC 33.5 g/dl (31.0-37.0); MEAN PLATELET VOLUME 9.5 fl (7.0-11.0); MONO # 1.1 (0.1-0.6); MONO % 11.8 % (1.0-6.0); RBC 4.51 10^6/uL (3.5-6.1); RED CELL DISTRIBUTION WIDTH 14.5 % (11.5-14.5); WHITE BLOOD COUNT 9.4 10^3/ul (4.5-11.0)
[2018-05-14 08:36] LABS: BLOOD UREA NITROGEN 33 mg/dL (7-21); CALCIUM 9.3 mg/dL (8.4-10.5); GFR AFRICAN-AMERICAN > 60; GFR NON-AFRICAN AMERICAN > 60
[2018-05-14] MEDS: Cefepime IV 2 gm in NS 2 GM/100 ML BAG IVPB SCH ×2 (09:12→22:09)
[2018-05-14] MEDS ORDERED: Lidocaine 2% Jelly (Uro-Jet) ONE (11:12)
[2018-05-14] MEDS ORDERED: Iohexol 240 (50 ml) ONE (11:12)
[2018-05-14] MEDS ORDERED: Propofol 10 mg/ml Inj (20 ML) ONE (11:14)
[2018-05-14] MEDS ORDERED: Lidocaine 1% Inj (20ml) ONE (11:15)
[2018-05-14] MEDS ORDERED: Succinylcholine 200 mg/10 ml Inj IV ONE (11:34)
[2018-05-14] MEDS ORDERED: Midazolam 2 MG/2 ML VIAL ONE (11:35)
[2018-05-14] MEDS ORDERED: HYDROmorphone 0.5 mg/0.5 ml ISec IVP PRN (12:27)
--- NOTE | 2018-05-14 12:27 | CP.PCM.PN ---
Subjective - Date & Time of Evaluation Date of Evaluation: 05/14/18 Time of Evaluation: 10:05 - Subjective Subjective: S&E at bedside, this am, chart reviewed, awaiting renal stent removal. Still has abdominal discomfort w/mild improvement. tolerating oral intake, currently NPO for procedure. No N/V diarrhea or overt GI bleeding. No SOB or CP. Objective - Vital Signs/Intake and Output Vital Signs (last 24 hours): Temp Pulse Resp BP Pulse Ox 98.2 F 86 22 99/73 L 95 05/14/18 11:10 05/14/18 11:10 05/14/18 11:10 05/14/18 11:10 05/14/18 11:10 Intake and Output: 05/14/18 05/14/18 06:59 18:59 Intake Total 240 Output Total 1375 Balance -1135 - Medications Medications: Current Medications Amylase (Pancrease 93070 U-5000 U-84423 U) 15,000 unit PO AC [facility] Last Admin: 05/14/18 08:23 Dose: Not Given Apixaban (Eliquis) 5 mg PO BID [facility] PRN Reason: Protocol Last Admin: 05/14/18 09:12 Dose: Not Given Diltiazem HCl (Cardizem Cd) 120 mg PO DAILY [facility] Famotidine (Pepcid) 20 mg PO DAILY [facility] Last Admin: 05/14/18 09:13 Dose: Not Given Furosemide (Lasix) 40 mg IVP 0800,1400 [facility] Last Admin: 05/14/18 08:22 Dose: 40 mg Hydromorphone HCl (Dilaudid) 2 mg IVP Q4H PRN PRN Reason: Pain, severe (8-10) Last Admin: 05/14/18 10:17 Dose: 2 mg Cefepime HCl (Maxipime 2gm) 2 gm in 100 mls @ 100 mls/hr IVPB Q12 [facility] PRN Reason: Protocol Stop: 05/18/18 22:01 Last Admin: 05/14/18 09:12 Dose: 100 mls/hr Spironolactone (Aldactone) 25 mg PO DAILY [facility] Last Admin: 05/14/18 09:38 Dose: Not Given - Labs Labs: 05/14/18 08:15 05/14/18 08:15 PT 13.2 SECONDS (9.4-12.5) H 05/11/18 10:45 INR 1.14 05/11/18 10:45 APTT 32.6 Seconds (25.1-36.5) 05/11/18 10:45 - Constitutional Appears: No Acute Distress - Head Exam Head Exam: NORMOCEPHALIC - Eye Exam Eye Exam: Normal appearance. absent: Scleral icterus - ENT Exam ENT Exam: Mucous Membranes Moist - Neck Exam Neck Exam: Normal Inspection - Respiratory Exam Respiratory Exam: NORMAL BREATHING PATTERN. absent: Respiratory Distress - Cardiovascular Exam Cardiovascular Exam: +S1, +S2 - GI/Abdominal Exam GI & Abdominal Exam: Soft, Tenderness, Normal Bowel Sounds. absent: Guarding, Rebound Additional comments: obese abdomen, left side tenderness - Extremities Exam Extremities Exam: Pedal Edema. absent: Calf Tenderness - Neurological Exam Neurological Exam: Alert, Awake, Oriented x3 Assessment and Plan - Assessment and Plan (Free Text) Assessment: Assessment: Left Flank/Abdominal pain, likely secondary to renal stone and migrated stent Leukcytosis Bacteremia Right lung infliltrate Resolving Acute Renal Insufficiency Elevated BNP, CHF Morbid Obesity H/O Chronic Pancreatitis H/O Atrial Fibrillation on Eliquis PLAN: currently NPO for stent removal monitor electrolytes on Lasix and Aldactone on IV antibiotics Pain mgt when on solid food, on Pancrease On low dose Pepcid urology FU Abdominal pain likely from renal stone and migrated stent, for stent removal today, no planned GI intervention at this time, will currently sign off, please reconsult as necessary. Thank you for allowing us to participate in your patient care. Discussed/reviewed with Dr. Briceno covering Dr. Choe.
[2018-05-14] MEDS ORDERED: Sodium Chloride 0.9% 1,000 ML IV SCH (12:30)
--- NOTE | 2018-05-14 12:38 | RAD ---
Date of service: 05/14/2018 PROCEDURE: Retrograde pyelogram HISTORY: placement LT nephroureteral stent COMPARISON: TECHNIQUE: 34.3 seconds of fluoro time. Cumulative dose 34.56 mGy. 12 images were submitted FINDINGS: The study shows placement of a left ureteral stent IMPRESSION: As above
[2018-05-14] MEDS ORDERED: HYDROmorphone 0.5 mg/0.5 ml ISec ONE (12:53)
--- NOTE | 2018-05-14 13:10 | PN ---
Copied To: Angelica Don MD Attending MD: Angelica Don MD DATE: 05/14/2018 SUBJECTIVE: The patient is seen sitting in bed. He is awake. He is alert. He is complaining of shortness of breath. He reports there is no change in his dyspnea. He also complains of intermittent left flank pain. He is scheduled for a stent change today. PHYSICAL EXAMINATION: GENERAL: Obese young male sitting in bed. VITAL SIGNS: Blood pressure 99/73 (?), heart rate 86, respiratory rate 22, temperature 98.2. HEENT: Normocephalic, atraumatic, positive pallor. NECK: Supple, no JVD. LUNGS: Bilateral equal air entry, bilateral equal expansion, no crackles. CARDIAC: S1 and S2, irregular rate and rhythm, no murmur. ABDOMEN: Obese, distended, soft, bowel sounds present. EXTREMITIES: Trace lower extremity edema. INTAKE AND OUTPUT: 240/2375 (?). LABORATORY DATA: WBC 9.4, hemoglobin 14.4, hematocrit 43, platelets 245. Sodium 135, potassium 4.7, chloride 98, CO2 26, BUN 33, creatinine 1.3, glucose 103, calcium 9.3, phosphorus 4.1, magnesium 2.4. CURRENT MEDICATIONS: Aldactone 25 daily, Cardizem CD 120 daily, Dilaudid, Eliquis 5 b.i.d., Lasix 40 IV every 12, cefepime 2 g every 12, Pancrease, Pepcid, Primacor discontinued on 05/12. ASSESSMENT: 1. Dilated cardiomyopathy, diastolic heart failure. 2. Severe hypertension, currently hypotensive. 3. Morbid obesity. 4. Left hydronephrosis, left ureteral stent. 5. Acute kidney injury superimposed on chronic kidney disease, stage III. 6. Chronic recurrent pancreatitis. 7. Narcotic dependence. PLAN: 1. The patient does not appear to be volume overloaded at this time, but complains of shortness of breath. His latest echocardiogram done a couple of weeks ago showed moderately dilated cardiomyopathy with decreased ejection fraction of 30%-35% with severe global hypokinesis. Four-chamber dilatation, case was discussed with Cardiology. The patient is not a candidate for any kind of intervention at this time i.e. AICD because of morbid obesity. 2. The patient is scheduled for a stent change today. 3. Continue IV Lasix while in the hospital. 4. Restrict narcotics. 5. Discharge planning (?). Angelica Don MD : 05/14/2018 12:20:51
[2018-05-14] MEDS: diltiaZEM 120 mg/24 Hours CD Cap PO SCH (13:50)
--- NOTE | 2018-05-14 15:05 | PN ---
Copied To: Sammy Santiago MD Attending MD: Sammy Santiago MD DATE: 05/14/2018 SUBJECTIVE: The patient is 37-year-old seen and examined, complaining of shortness of breath, complaining of left flank pain, was on Primacor drip, did very well, started to improve. PHYSICAL EXAMINATION: VITAL SIGNS: He is afebrile. Pulse 86, respirations 22, blood pressure 99/73. LUNGS: Bilateral diffusely decreased breath sounds. HEART: S1, S2 audible. ABDOMEN: Soft, obese, some left flank discomfort. No rebound, no guarding. NEUROLOGICAL: Patient is awake, alert, oriented, communicative. LABORATORY DATA: WBC 9.4, hemoglobin 14, hematocrit 43, platelet count 245. Chemistry: Sodium 135, potassium 4.7, chloride 98, CO2 , BUN 33, creatinine 1.6, sugar 101. Urine culture repeat are negative. Blood culture, first time shows gram positive cocci; however, repeat cultures were negative. ASSESSMENT: 1. Congestive heart failure exacerbation. 2. Nonischemic cardiomyopathy. 3. Morbid obesity. 4. Left nephrolithiasis and hydronephrosis and stent displacement. 5. History of intermittent chronic pancreatitis. 6. History of alcohol abuse. 7. Active smoker. PLAN: Currently, the patient is on spironolactone. I will start him on Cardizem CD. I will change his Cardizem to Cardizem CD from 90 mg to 120 mg daily. The patient is going for cystoscopy and stent replacement today. If he remains stable, possible discharge in the morning. Sammy Santiago MD
--- NOTE | 2018-05-14 15:36 | OP ---
Copied To: Kamari Love MD Attending MD: Kamari Love MD PROCEDURE DATE: 05/14/2018 PREOPERATIVE DIAGNOSES: Left renal calculus, left hydronephrosis. POSTOPERATIVE DIAGNOSES: Left renal calculus, left hydronephrosis. PROCEDURES: Cystoscopy, removal of left ureteral stent, left retrograde pyelogram, insertion of a left ureteral stent. ATTENDING SURGEON: Kamari Love MD ANESTHESIA: General. SPECIMENS: There were none. DRAINS: A 6 x 26 left ureteral stent. COMPLICATIONS: There were none. OPERATIVE FINDINGS: After informed consent was obtained, the patient was taken to the operating room, placed on operating table. Anesthesia was administered. The patient was then placed in dorsal lithotomy position and prepped and draped in the usual sterile fashion. A 21-Kazakh cystoscope was placed in the patient's urethra and advanced proximally under direct vision until the bladder was entered. A full survey inspection of bladder was then performed, which revealed a stent exiting from the left ureteral orifice. There was some inflammation noted around the left ureteral orifice. There were no papillary tumors. There were a few tiny calculi noted. At this point, the stent was grasped with a grasping forceps and withdrawn through the urethral meatus. On fluoroscopy, the upper limb of the stent was noted to uncoil easily. The stent was then grasped at the urethral meatus and withdrawn in its entirety. The cystoscope was then re-passed. A 5-Kazakh open-ended ureteral catheter was then advanced through the cystoscope and guided into the left ureteral orifice. When inside the orifice, a left retrograde pyelogram was performed by instilling contrast through the open-ended ureteral catheter into the left ureter during real-time fluoroscopy. There was mild hydronephrosis noted. There was a question of a small density in one of the left lower pole calyces, likely the stone seen on prior CT scan. At this point, a sensor wire was obtained. The sensor wire was passed through the open-ended ureteral catheter and guided up the ureter under fluoroscopic guidance until it was coiled in the upper collecting system. The open-ended ureteral catheter was then removed and a 6-Kazakh x 26 stent was obtained, it was passed over the wire through the scope and into the left ureter. The stent was then advanced proximally under direct and fluoroscopic guidance. When the stent was in proper position, the guidewire was removed. A coil was seen in the left renal pelvis on fluoroscopy. A coil was seen in the bladder on cystoscopy. At this point, the procedure was completed, the bladder was drained, and cystoscope was removed. The patient tolerated the procedure well. He was taken to the recovery room in awake and stable condition. Kamari Love MD
--- NOTE | 2018-05-14 15:38 | CP.PCM.PN ---
Subjective - Date & Time of Evaluation Date of Evaluation: 05/14/18 Time of Evaluation: 09:30 - Subjective Subjective: For urologic procedure today, no fevers. Objective - Vital Signs/Intake and Output Vital Signs (last 24 hours): Temp Pulse Resp BP Pulse Ox 98 F 130 H 16 138/86 92 L 05/14/18 13:16 05/14/18 13:50 05/14/18 13:16 05/14/18 14:34 05/14/18 13:16 Intake and Output: 05/14/18 05/14/18 06:59 18:59 Intake Total 240 Output Total 1375 Balance -1135 - Medications Medications: Current Medications Amylase (Pancrease 31120 U-5000 U-08112 U) 15,000 unit PO AC [facility] Last Admin: 05/14/18 13:50 Dose: 15,000 unit Apixaban (Eliquis) 5 mg PO BID [facility] PRN Reason: Protocol Last Admin: 05/14/18 09:12 Dose: Not Given Diltiazem HCl (Cardizem Cd) 120 mg PO DAILY [facility] Last Admin: 05/14/18 13:50 Dose: 120 mg Famotidine (Pepcid) 20 mg PO DAILY [facility] Last Admin: 05/14/18 09:13 Dose: Not Given Furosemide (Lasix) 80 mg PO 0800,1400 [facility] Hydromorphone HCl (Dilaudid) 2 mg IVP Q4H PRN PRN Reason: Pain, severe (8-10) Last Admin: 05/14/18 14:34 Dose: 2 mg Cefepime HCl (Maxipime 2gm) 2 gm in 100 mls @ 100 mls/hr IVPB Q12 [facility] PRN Reason: Protocol Stop: 05/18/18 22:01 Last Admin: 05/14/18 09:12 Dose: 100 mls/hr Metoclopramide HCl (Reglan) 10 mg IV ONCE PRN PRN Reason: Nausea/Vomiting Spironolactone (Aldactone) 25 mg PO DAILY [facility] Last Admin: 05/14/18 09:38 Dose: Not Given - Labs Labs: 05/14/18 08:15 05/14/18 08:15 PT 13.2 SECONDS (9.4-12.5) H 05/11/18 10:45 INR 1.14 05/11/18 10:45 APTT 32.6 Seconds (25.1-36.5) 05/11/18 10:45 - Constitutional Appears: Chronically Ill - Head Exam Head Exam: NORMAL INSPECTION - Respiratory Exam Respiratory Exam: Decreased Breath Sounds - Cardiovascular Exam Cardiovascular Exam: +S1, +S2 - GI/Abdominal Exam GI & Abdominal Exam: Soft. absent: Tenderness Assessment and Plan - Assessment and Plan (Free Text) Plan: Assessment Coagulase negative staph bacteremia, consider contamination Left sided hydronephrosis with nephrolithiasis R/O UTI history of left sided perinephric abscess with left sided pyelonephritis history of acute sigmoid diverticulitis history of severe sepsis with probable left sided pyelonephritis with obstructing left ureteral calculus S/P cystoscopy, placement of left pigtail stent morbid obesity with BMI 57 HTN alcoholic cardiomyopathy history of pancreatitis history of kidney stones Plan repeat blood cx are negative - patient has no indwelling hardware continue Cefepime for now and will follow up urine cx done yesterday; follow up results of the Urologic procedure will continue to monitor clinically
[2018-05-14] MEDS: Levalbuterol 0.63 MG/3 ML Inhal Soln UD IH SCH (20:21)
[2018-05-15] MEDS: HYDROmorphone 2 mg/ml ISec IVP PRN ×6 (02:12→21:23)
--- NOTE | 2018-05-15 07:21 | CP.PCM.PN ---
Subjective - Date & Time of Evaluation Date of Evaluation: 05/15/18 Time of Evaluation: 06:30 - Subjective Subjective: Awake, no distress, feels better Reason for consultation and follow up:Cardiac evaluation of shortness of breath , history of congestive heart failure, hypertension, PVD. Seen and examined by me and Dr. Thomson Objective - Vital Signs/Intake and Output Vital Signs (last 24 hours): Temp Pulse Resp BP Pulse Ox 98.5 F 60 18 126/92 H 94 L 05/14/18 21:51 05/14/18 22:00 05/14/18 21:51 05/14/18 21:51 05/14/18 21:51 Intake and Output: 05/15/18 05/15/18 06:59 18:59 Intake Total 540 Output Total 1000 Balance -460 - Medications Medications: Current Medications Amylase (Pancrease 64841 U-5000 U-01244 U) 15,000 unit PO AC [facility] Last Admin: 05/14/18 14:30 Dose: Not Given Apixaban (Eliquis) 5 mg PO BID [facility] PRN Reason: Protocol Last Admin: 05/14/18 18:43 Dose: Not Given Diltiazem HCl (Cardizem Cd) 120 mg PO DAILY [facility] Last Admin: 05/14/18 13:50 Dose: 120 mg Famotidine (Pepcid) 20 mg PO DAILY [facility] Last Admin: 05/14/18 09:13 Dose: Not Given Furosemide (Lasix) 80 mg PO 0800,1400 [facility] Hydromorphone HCl (Dilaudid) 2 mg IVP Q4H PRN PRN Reason: Pain, severe (8-10) Last Admin: 05/15/18 05:43 Dose: 2 mg Cefepime HCl (Maxipime 2gm) 2 gm in 100 mls @ 100 mls/hr IVPB Q12 [facility] PRN Reason: Protocol Stop: 05/18/18 22:01 Last Admin: 05/14/18 22:09 Dose: 100 mls/hr Levalbuterol HCl (Xopenex) 0.63 mg IH TIDRESP [facility] Last Admin: 05/14/18 20:21 Dose: 0.63 mg Metoclopramide HCl (Reglan) 10 mg IV ONCE PRN PRN Reason: Nausea/Vomiting Spironolactone (Aldactone) 25 mg PO DAILY [facility] Last Admin: 05/14/18 09:38 Dose: Not Given - Labs Labs: 05/14/18 08:15 05/14/18 08:15 PT 13.2 SECONDS (9.4-12.5) H 05/11/18 10:45 INR 1.14 05/11/18 10:45 APTT 32.6 Seconds (25.1-36.5) 05/11/18 10:45 - Constitutional Appears: No Acute Distress - Eye Exam Eye Exam: Normal appearance - ENT Exam ENT Exam: Mucous Membranes Moist - Respiratory Exam Respiratory Exam: Decreased Breath Sounds, NORMAL BREATHING PATTERN - Cardiovascular Exam Cardiovascular Exam: +S1, +S2 - GI/Abdominal Exam GI & Abdominal Exam: Soft, Normal Bowel Sounds - Extremities Exam Additional comments: 2+edema - Neurological Exam Neurological Exam: Alert, Awake, Oriented x3 - Psychiatric Exam Psychiatric exam: Normal Affect - Skin Skin Exam: Dry, Warm Assessment and Plan - Assessment and Plan (Free Text) Assessment: A 37 year old male who came in to the ER due to shortness of breath. History of hypertension, congestive heart failure secondary to alcohol abuse in the past. CKD, morbidly obese, recurrent pancreatitis, current smoker. Acute decompensated congestive heart failure. started on primacor drip and lasix to diurese.Primacor discontinued yesterday. post cystoscopy/left renal stent yesterday. Plan: Feels better after renal stent Status post cystoscopy and left renal stent yesterday Breathing better, wanted to go home On Cardizem 120 mg daily,Eliqius 5 mg BID,Lasix 80 mg BID Aldactone 25 mg daily Continue on IV antibiotics per ID Continue current treatment Continue current medications Discontinued Primacor yesterday Lifestyle modification Weight reduction Smoking cessation Non compliant with medications, instructed/educated Will follow up Plan and treatment discussed with Dr. Thomson
[2018-05-15] MEDS: Levalbuterol 0.63 MG/3 ML Inhal Soln UD IH SCH ×3 (07:26→20:06)
[2018-05-15] MEDS: Amylase/Lipase/Protease 5,000 Units ECC PO SCH ×3 (07:36→16:50)
[2018-05-15 07:55] VITALS: RESP 20
[2018-05-15] MEDS: Cefepime IV 2 gm in NS 2 GM/100 ML BAG IVPB SCH (09:10)
[2018-05-15] MEDS: diltiaZEM 120 mg/24 Hours CD Cap PO SCH (09:11)
--- NOTE | 2018-05-15 14:16 | PN ---
Copied To: Sammy Santiago MD Attending MD: Sammy Santiago MD DATE: 05/15/2018 SUBJECTIVE: Patient is 37 years old. She was examined, had left ureteral stent replaced yesterday, complaining of flank pain, complaining of shortness of breath. Eating fair. No abdominal pain. PHYSICAL EXAMINATION: VITAL SIGNS: She is afebrile. Pulse 77, respirations 20, blood pressure 117/80. LUNGS: Bilateral good airflow. No rhonchi or crackle. HEART: S1, S2 audible. ABDOMEN: Soft, nontender. No rebound. Obese. No hepatosplenomegaly. NEUROLOGIC: She is awake, alert, oriented, communicative. ASSESSMENT: 1. Congestive heart failure exacerbation, status post Primacor drip with diuresis. 2. Non-ischemic cardiomyopathy. 3. Left ureteral stent replacement. 4. History of recurrent pancreatitis. 5. History of alcohol abuse in the past. 6. Active smoker. 7. Hypertension. 8. Morbid obesity. PLAN: Currently, the patient is on cefepime. We will continue on Eliquis. We will follow up CBC, CMP in the morning. Encourage ambulation. Possible discharge in the morning once the antibiotics . Sammy Santiago MD
[2018-05-15 14:45] VITALS: O2SAT 96
--- NOTE | 2018-05-15 17:07 | CP.PCM.PN ---
Subjective - Date & Time of Evaluation Date of Evaluation: 05/15/18 Time of Evaluation: 10:40 - Subjective Subjective: Comfortable, no fevers. Objective - Vital Signs/Intake and Output Vital Signs (last 24 hours): Temp Pulse Resp BP Pulse Ox 98 F 130 H 16 138/86 92 L 05/14/18 13:16 05/14/18 13:50 05/14/18 13:16 05/14/18 14:34 05/14/18 13:16 Intake and Output: 05/14/18 05/14/18 06:59 18:59 Intake Total 240 Output Total 1375 Balance -1135 - Medications Medications: Current Medications Amylase (Pancrease 72935 U-5000 U-98720 U) 15,000 unit PO AC [facility] Last Admin: 05/14/18 13:50 Dose: 15,000 unit Apixaban (Eliquis) 5 mg PO BID [facility] PRN Reason: Protocol Last Admin: 05/14/18 09:12 Dose: Not Given Diltiazem HCl (Cardizem Cd) 120 mg PO DAILY [facility] Last Admin: 05/14/18 13:50 Dose: 120 mg Famotidine (Pepcid) 20 mg PO DAILY [facility] Last Admin: 05/14/18 09:13 Dose: Not Given Furosemide (Lasix) 80 mg PO 0800,1400 [facility] Hydromorphone HCl (Dilaudid) 2 mg IVP Q4H PRN PRN Reason: Pain, severe (8-10) Last Admin: 05/14/18 14:34 Dose: 2 mg Cefepime HCl (Maxipime 2gm) 2 gm in 100 mls @ 100 mls/hr IVPB Q12 [facility] PRN Reason: Protocol Stop: 05/18/18 22:01 Last Admin: 05/14/18 09:12 Dose: 100 mls/hr Metoclopramide HCl (Reglan) 10 mg IV ONCE PRN PRN Reason: Nausea/Vomiting Spironolactone (Aldactone) 25 mg PO DAILY [facility] Last Admin: 05/14/18 09:38 Dose: Not Given - Labs Labs: 05/14/18 08:15 05/14/18 08:15 PT 13.2 SECONDS (9.4-12.5) H 05/11/18 10:45 INR 1.14 05/11/18 10:45 APTT 32.6 Seconds (25.1-36.5) 05/11/18 10:45 - Constitutional Appears: Chronically Ill - Head Exam Head Exam: NORMAL INSPECTION - Neck Exam Neck Exam: absent: Meningismus - Respiratory Exam Respiratory Exam: Decreased Breath Sounds - Cardiovascular Exam Cardiovascular Exam: +S1, +S2 - GI/Abdominal Exam GI & Abdominal Exam: Soft. absent: Tenderness Assessment and Plan - Assessment and Plan (Free Text) Plan: Assessment Coagulase negative staph bacteremia, most likely contamination Left sided hydronephrosis with nephrolithiasis with no evidence of UTI history of left sided perinephric abscess with left sided pyelonephritis history of acute sigmoid diverticulitis history of severe sepsis with probable left sided pyelonephritis with obstructing left ureteral calculus S/P cystoscopy, placement of left pigtail stent morbid obesity with BMI 57 HTN alcoholic cardiomyopathy history of pancreatitis history of kidney stones Plan repeat blood cx are negative - patient has no indwelling hardware we can d/c antibiotics since there is no evidence of UTI
[2018-05-16] MEDS: HYDROmorphone 2 mg/ml ISec IVP PRN ×4 (01:31→13:39)
--- NOTE | 2018-05-16 01:44 | PN ---
Copied To: Angelica Don MD Attending MD: Angelica Don MD DATE: 05/15/2018 SUBJECTIVE: The patient is seen sitting in bed. He is awake. He is alert. He is comfortable. He still complains of shortness of breath. He had retrograde pyelogram yesterday. He has a left ureteral stent change. PHYSICAL EXAMINATION: GENERAL: Morbidly obese, middle-aged male, sitting in bed. VITAL SIGNS: Blood pressure 117/80, heart rate 64, respiratory rate 20, temperature 98.4. HEENT: Normocephalic, atraumatic, positive pallor. NECK: Supple, no JVD. LUNGS: Bilateral equal entry, bilateral equal expansion. CARDIAC: S1 and S2, regular rate and rhythm, no murmur, no rub. ABDOMEN: Obese, distended, soft, nontender, bowel sounds present. EXTREMITIES: No lower extremity edema. INTAKE AND OUTPUT: 1360/3400. LABORATORY DATA: WBC 9, hemoglobin 14.4, hematocrit 43, platelets 245. Sodium 135, potassium 4.7, chloride 98, CO2 of 26, BUN 33, creatinine 1.3, glucose 103, calcium 9.3, phosphorus 4.1, magnesium 2.4. CURRENT MEDICATIONS: Aldactone 25, Cardizem 120, Dilaudid, Eliquis, Lasix 80 every 12, Pancrease, Pepcid, Xopenex. ASSESSMENT: 1. Severe dilated cardiomyopathy. 2. Left ureteral stent, left hydronephrosis, left kidney stones. 3. Acute kidney injury superimposed on chronic kidney disease stage 2/3. 4. Recurrent pancreatitis. 5. Narcotic dependence. 6. Atrial fibrillation/flutter. PLAN: 1. Case discussed with Dr. Thomson, will agree with increasing Lasix to 80 b.i.d. for the time being. 2. Continue Aldactone 25. 3. Keep O's greater than I's. 4. Discharge planning. Angelica Don MD
--- NOTE | 2018-05-16 06:58 | CP.PCM.PN ---
Subjective - Date & Time of Evaluation Date of Evaluation: 05/16/18 Time of Evaluation: 06:15 - Subjective Subjective: Awake, no distress, shortness of breath when walking Reason for consultation and follow up:Cardiac evaluation of shortness of breath , history of congestive heart failure, hypertension, PVD. Seen and examined by me and Dr. Thomson Objective - Vital Signs/Intake and Output Vital Signs (last 24 hours): Temp Pulse Resp BP Pulse Ox 97.9 F 61 20 125/77 96 05/15/18 14:00 05/15/18 14:00 05/15/18 14:00 05/15/18 14:00 05/15/18 14:00 Intake and Output: 05/15/18 05/16/18 18:59 06:59 Intake Total 1700 Output Total 1800 Balance -100 - Medications Medications: Current Medications Amylase (Pancrease 59101 U-5000 U-64445 U) 15,000 unit PO AC [facility] Last Admin: 05/15/18 16:50 Dose: 15,000 unit Apixaban (Eliquis) 5 mg PO BID [facility] PRN Reason: Protocol Diltiazem HCl (Cardizem Cd) 120 mg PO DAILY [facility] Last Admin: 05/15/18 09:11 Dose: 120 mg Famotidine (Pepcid) 20 mg PO DAILY [facility] Last Admin: 05/15/18 09:11 Dose: 20 mg Furosemide (Lasix) 80 mg PO 0800,1400 [facility] Last Admin: 05/15/18 13:04 Dose: 80 mg Hydromorphone HCl (Dilaudid) 2 mg IVP Q4H PRN PRN Reason: Pain, severe (8-10) Last Admin: 05/16/18 05:30 Dose: 2 mg Levalbuterol HCl (Xopenex) 0.63 mg IH TIDRESP [facility] Last Admin: 05/15/18 20:06 Dose: 0.63 mg Spironolactone (Aldactone) 25 mg PO DAILY [facility] Last Admin: 05/15/18 09:11 Dose: 25 mg - Labs Labs: 05/14/18 08:15 05/14/18 08:15 PT 13.2 SECONDS (9.4-12.5) H 05/11/18 10:45 INR 1.14 05/11/18 10:45 APTT 32.6 Seconds (25.1-36.5) 05/11/18 10:45 - Constitutional Appears: No Acute Distress - Eye Exam Eye Exam: Normal appearance - ENT Exam ENT Exam: Mucous Membranes Moist - Respiratory Exam Respiratory Exam: Decreased Breath Sounds, NORMAL BREATHING PATTERN - Cardiovascular Exam Cardiovascular Exam: +S1, +S2 - GI/Abdominal Exam GI & Abdominal Exam: Soft, Normal Bowel Sounds - Extremities Exam Additional comments: 2+pedal edema - Neurological Exam Neurological Exam: Alert, Awake, Oriented x3 - Psychiatric Exam Psychiatric exam: Normal Affect - Skin Skin Exam: Dry, Intact, Warm Assessment and Plan - Assessment and Plan (Free Text) Assessment: A 37 year old male who came in to the ER due to shortness of breath. History of hypertension, congestive heart failure secondary to alcohol abuse in the past. CKD, morbidly obese, recurrent pancreatitis, current smoker. Acute decompensated congestive heart failure. started on primacor drip and lasix to diurese.Primacor discontinued 2 days ago. post cystoscopy/left renal stent completed antibiotic therapy. Plan: Completed antibiotic therapy For possible discharge today Status post cystoscopy and left renal stent Wanted to go home On Cardizem 120 mg daily,Eliqius 5 mg BID,Lasix 80 mg BID Aldactone 25 mg daily Continue current treatment Continue current medications Reiterated Lifestyle modification Consider Weight reduction program Smoking cessation Reiterated compliance of medications Will follow up Plan and treatment discussed with Dr. Thomson
[2018-05-16 07:03] LABS: BASO # 0.01 K/mm3 (0.0-2.0); BASO % 0.1 % (0.0-3.0); EOS # 0.2 (0.0-0.7); EOS % 1.6 % (1.5-5.0); GRAN # 6.12 (1.4-6.5); GRAN % 65.6 % (50.0-68.0); HEMOGLOBIN 14.1 g/dL (14.0-18.0); LYMPH # 1.8 (1.2-3.4); LYMPH % 19.6 % (22.0-35.0); MEAN CELL VOLUME 94.4 fl (80.0-105.0); MEAN CORPUSCULAR HEMOGLOBIN 31.5 pg (25.0-35.0); MEAN CORPUSCULAR HGB CONC 33.3 g/dl (31.0-37.0); MEAN PLATELET VOLUME 9.5 fl (7.0-11.0); MONO # 1.2 (0.1-0.6); MONO % 13.1 % (1.0-6.0); RBC 4.48 10^6/uL (3.5-6.1); RED CELL DISTRIBUTION WIDTH 14.4 % (11.5-14.5); WHITE BLOOD COUNT 9.3 10^3/ul (4.5-11.0)
[2018-05-16 07:20] VITALS: PULSE 76; TEMP 97.8
[2018-05-16 07:26] LABS: ALBUMIN 3.9 g/dL (3.0-4.8); ALT/SGPT 14 U/L (7-56); AST/SGOT 17 U/L (17-59); BLOOD UREA NITROGEN 29 mg/dL (7-21); CALCIUM 9.4 mg/dL (8.4-10.5); GFR AFRICAN-AMERICAN > 60; GFR NON-AFRICAN AMERICAN 56
[2018-05-16] MEDS: Levalbuterol 0.63 MG/3 ML Inhal Soln UD IH SCH ×2 (07:26→13:21)
[2018-05-16] MEDS: Amylase/Lipase/Protease 5,000 Units ECC PO SCH ×2 (09:08→11:47)
[2018-05-16] MEDS: diltiaZEM 120 mg/24 Hours CD Cap PO SCH (09:36)
--- NOTE | 2018-05-16 10:59 | PN ---
Copied To: Roland Maria MD Attending MD: Roland Maria MD DATE: 05/16/2018 SUBJECTIVE: The patient is seen earlier today in 575, bed 1. No fevers, no chills. He is complaining of generalized aches and pains and weakness. PHYSICAL EXAMINATION: VITAL SIGNS: On exam, temperature is 97, blood pressure is 120/70, respiratory rate of 20. HEENT: Examination of HEENT is unremarkable. NECK: Supple. LUNGS: Have decreased breath sounds. HEART: Normal S1, S2. ABDOMEN: Soft. LABORATORY DATA: Laboratory examination reveals a white count of 9.3, hemoglobin of 14. Chemistries reveals a BUN of 29, creatinine of 1.4. The BNP is 2410. Urinalysis is noted. Microbiology reveals the blood cultures positive for coag-negative Staph. The repeat blood cultures are negative. Review of orders reveals the patient to be off of antibiotics. ASSESSMENT AND PLAN: A 37-year-old male with coag-negative Staphylococcus bacteremia, most likely a contamination with a history of left-sided hydronephrosis, nephrolithiasis. No evidence of urinary tract infection. History of left-sided perinephric abscess and left-sided pyelonephritis, super morbidly obese with a body mass index of 57, a cystoscopy with pigtail stent placement, hypertension, alcoholic cardiomyopathy, pancreatitis and history of kidney stones. Currently, the patient is off of antibiotics and afebrile and repeat cultures negative. No evidence of infection. However, he is at risk for developing nosocomial infections. Roland Maria MD
[2018-05-16 13:44] VITALS: BP 122/66
--- NOTE | 2018-05-16 22:48 | DS ---
Copied To: Sammy Santiago MD Attending MD: Sammy Santiago MD HISTORY OF PRESENT ILLNESS: The patient is 37 years old, came to emergency room because of increasing leg swelling, wheezing, shortness of breath. He also has left flank pain and he was overdue for his stent placement, so he was started on Primacor drip. His shortness of breath improved somewhat. He was diuresed aggressively and was taken to OR yesterday, had cystoscopy and stent replaced. PHYSICAL EXAMINATION: GENERAL: He is awake, alert, oriented, communicative. VITAL SIGNS: He is afebrile, pulse 76, respirations 20, blood pressure 143/76. LUNGS: Bilateral fair airflow. No rhonchi or crackle. HEART: S1 and S2 audible. ABDOMEN: Soft. Nontender. No rebound. No guarding. NEUROLOGICAL: The patient is awake, alert, oriented, communicative. LABORATORY EXAM: WBC is 9.3, hemoglobin 14, hematocrit 42, platelet 248. Chemistry: Sodium 137, potassium 4.2, chloride 98, CO2 of 28, BUN 29, creatinine 1.4, blood sugar of 104. Urine shows moderate blood and small leukocyte. Blood cultures are negative. So far, 4 blood cultures are negative. ASSESSMENT: 1. Nonischemic cardiomyopathy. 2. Hypertension. 3. Hyperlipidemia. 4. Intermittent pancreatitis. 5. Left nephrolithiasis and hydronephrosis, status post stent replacement. 6. Morbid obesity. PLAN: The patient is clinically stable. He is off of antibiotic. He will be discharged home on spironolactone, diltiazem. His Coreg has been stopped. I will continue on Eliquis. He will be given Lasix 80 twice a day and he will resume his medication as prior to admission except his Coreg has been stopped and he has been replaced with Cardizem CD and Lasix is 80 mg every 12. . Sammy Santiago MD
--- NOTE | 2018-05-16 23:48 | PN ---
Copied To: Angelica Don MD Attending MD: Angelica Don MD DATE: 05/16/2018 SUBJECTIVE: The patient is seen lying in bed. He is awake. He is alert. He reports that his left flank pain is better, but he still has shortness of breath. He complains of dyspnea on exertion. PHYSICAL EXAMINATION: GENERAL: Young male lying in bed in no acute distress. VITAL SIGNS: Blood pressure 147/87, heart rate 76, respiratory rate 20, temperature 98.2. HEENT: Normocephalic, atraumatic, positive pallor. NECK: Supple, no JVD. LUNGS: Bilateral equal air entry, bilateral equal expansion, no rales. CARDIAC: S1 and S2, regular rate and rhythm, no murmur, no rub. ABDOMEN: Obese, distended, soft, nontender, bowel sounds present. EXTREMITIES: No lower extremity edema. INTAKE AND OUTPUT: 1700/1800. LABORATORY DATA: WBC 9, hemoglobin 14, hematocrit 42, platelets 248. Sodium 137, potassium 4.2, chloride 98, CO2 28, BUN 29, creatinine 1.4, glucose 104, calcium 9.4, AST 17, ALT 14, albumin 3.9. CURRENT MEDICATIONS: Aldactone 25, Cardizem CD 120, Dilaudid, Eliquis 5 b.i.d., Lasix 40 p.o. b.i.d., Pancrease, Pepcid, and Xopenex. ASSESSMENT: 1. Dilated cardiomyopathy, congestive heart failure. 2. Morbid obesity. 3. Left hydronephrosis/left ureteral stent change. 4. Hypertension. 5. Acute kidney injury superimposed on chronic kidney disease stage II/III, resolved acute kidney injury. 6. History of recurrent pancreatitis. PLAN: 1. Continue Lasix 80 b.i.d. 2. Continue current antihypertensive regimen. 3. Continue Aldactone. 4. No objection to discharge. Angelica Don MD
== END 2018-05-16 15:50 | disposition home or self-care (01) | DRG 291 ==
LOC: ED 10:02 → ERH 12:08 → 2RSO 12:40 → 5RSO 05-14 21:08
PROVIDERS: ADMIT Internal Medicine; ATTEND Internal Medicine
PROC: 0T778DZ Dilation of Left Ureter with Intraluminal Device, Via Natural or Artificial Opening Endoscopic (ICD-10-PCS; 2018-05-14)
PROC: BT1F1ZZ Fluoroscopy of Left Kidney, Ureter and Bladder using Low Osmolar Contrast (ICD-10-PCS; 2018-05-14)
PROC: 0TP98DZ Removal of Intraluminal Device from Ureter, Via Natural or Artificial Opening Endoscopic (ICD-10-PCS; principal; 2018-05-14 11:30)
DX: I13.0 Hypertensive heart and chronic kidney disease with heart failure and stage 1 through stage 4 chronic kidney disease, or unspecified chronic kidney disease (principal); I50.33 Acute on chronic diastolic (congestive) heart failure; N13.2 Hydronephrosis with renal and ureteral calculous obstruction; N17.9 Acute kidney failure, unspecified; K86.0 Alcohol-induced chronic pancreatitis; F11.20 Opioid dependence, uncomplicated; I48.92 Unspecified atrial flutter; Z68.43 Body mass index [BMI] 50.0-59.9, adult; N18.3 Chronic kidney disease, stage 3 (moderate); I25.5 Ischemic cardiomyopathy; I42.0 Dilated cardiomyopathy; I42.6 Alcoholic cardiomyopathy; I48.2 Chronic atrial fibrillation; E66.01 Morbid (severe) obesity due to excess calories; E11.22 Type 2 diabetes mellitus with diabetic chronic kidney disease; E11.51 Type 2 diabetes mellitus with diabetic peripheral angiopathy without gangrene; K21.9 Gastro-esophageal reflux disease without esophagitis; D64.9 Anemia, unspecified; I08.1 Rheumatic disorders of both mitral and tricuspid valves; I25.10 Atherosclerotic heart disease of native coronary artery without angina pectoris; E78.5 Hyperlipidemia, unspecified; F17.200 Nicotine dependence, unspecified, uncomplicated; Z79.01 Long term (current) use of anticoagulants; Z86.010 Personal history of colon polyps; Z91.19 Patient's noncompliance with other medical treatment and regimen; Z91.14 Patient's other noncompliance with medication regimen

== ENCOUNTER 2018-05-31 09:16 | Inpatient (IN) | payer BC ==
[2018-05-31 09:32] VITALS: BMI 57.6
[2018-05-31] MEDS ORDERED: Morphine 4 mg/ml ISec IVP STA ×2 (09:41→11:30)
[2018-05-31] MEDS ORDERED: Nitroglycerin 2% Ointment Foilpak UD TOP STA (09:42)
--- NOTE | 2018-05-31 09:50 | ED PDOC ---
Arrival/HPI - General Chief Complaint: Chest Pain Time Seen by Provider: 05/31/18 09:22 Historian: Patient - History of Present Illness Narrative History of Present Illness (Text): 05/31/18 09:30 37 year old male, whose past medical history includes CHF, chronic pancreatitis , kidney stones, hypertension, and PVD, who presents to the Emergency department complaining of chronic sharp pain at mid-back, chest pain, leg edema. Patient notes his chest pain is unchanged from baseline. Patient states he has shortness of breath when sitting and cannot walk short distances. Patient denies any fever, chills, nausea, vomiting, diarrhea, neck pain, headache, dizziness, or any other complaints. PMD: Dr. Santiago Processing Spec: Dr. Thomson Board Liner Operator: Dr. Don Time/Duration: < week Symptom Onset: Sudden Symptom Course: Unchanged Quality: Aching, Other (sharp) Activities at Onset: Light Context: Home Past Medical History - Provider Review Nursing Documentation Reviewed: Yes - Past History Past History: Non-Contributing - Infectious Disease Hx of Infectious Diseases: None - Tetanus Immunization Tetanus Immunization: Unknown - Cardiac Hx Cardiac Disorders: Yes (cardiomyopathy) Hx Cardiac Arrhythmia: Yes Hx Congestive Heart Failure: Yes Hx Hypertension: Yes Hx Pacemaker: No Hx Peripheral Edema: Yes (ble +3 pitting) Hx Peripheral Vascular Disease: Yes - Pulmonary Hx Respiratory Disorders: No Hx Sleep Apnea: (pt denies sleep apnea) - Neurological Hx Neurological Disorder: No - HEENT Hx HEENT Disorder: No - Renal Hx Renal Disorder: Yes (hydronephrosis, L ureteral pigtail stent) Hx Kidney Stones: Yes Hx Pyelonephritis: Yes Hx Renal Failure: Yes Other/Comment: left calculus 11/2017 - Endocrine/Metabolic Hx Endocrine Disorders: No - Hematological/Oncological Hx Blood Disorders: No - Integumentary Hx Dermatological Disorder: Yes (foul smelling body odor) Other/Comment: pt refusing to have skin assessed - Musculoskeletal/Rheumatological Hx Musculoskeletal Disorders: Yes Hx Back Pain: Yes Hx Falls: No Hx Fractures: Yes (r ankle) Hx Gout: Yes - Gastrointestinal Hx Gastrointestinal Disorders: Yes (morbidly obese, abd pain) Hx Diverticulitis: Yes Hx Gastroesophageal Reflux: Yes Hx Pancreatitis: Yes (quit drinking since pancreatitis) - Genitourinary/Gynecological Hx Genitourinary Disorders: Yes (urinary retention, dysuria) Hx Hematuria: Yes Hx Urinary Tract Infection: Yes Other/Comment: pylonephritis - Psychiatric Hx Psychophysiologic Disorder: No Hx Emotional Abuse: No Hx Physical Abuse: No Hx Substance Use: No Other/Comment: etoh in the past none since pancreatitis - Past Surgical History Past Surgical History: No Previous - Surgical History Hx Cholecystectomy: Yes Other/Comment: left urteral pigtail stent and replacement, cysto - Anesthesia Hx Anesthesia: Yes Hx Anesthesia Reactions: Yes (NAUSEA) Hx Malignant Hyperthermia: No - Suicidal Assessment Feels Threatened In Home Enviroment: No Family/Social History - Physician Review Nursing Documentation Reviewed: Yes Family/Social History: No Known Family HX Smoking Status: Light Smoker < 10 Cigarettes Daily Hx Alcohol Use: (quit due to pancreatitis) Hx Substance Use: No Hx Substance Use Treatment: No Allergies/Home Meds Allergies/Adverse Reactions: Allergies LUZ Inhibitors Allergy (Severe, Verified 05/31/18 09:36) ANGIOEDEMA Home Medications: Home Meds Medication Instructions Recorded Confirmed Carvedilol [Coreg] 12.5 mg PO BID 08/06/17 05/31/18 Famotidine [Pepcid] 20 mg PO DAILY 08/06/17 05/31/18 Furosemide [Lasix] 40 mg PO BID 08/06/17 05/31/18 Spironolactone [Aldactone] 25 mg PO DAILY 08/06/17 05/31/18 Amylase/Lipase/Protease [Pancrease 3 tab PO AC 12/13/17 05/31/18 [id number] [id number] U] Metoclopramide [Reglan] 10 mg PO PRN PRN 12/13/17 05/31/18 Review of Systems - Physician Review All systems were reviewed & negative as marked: Yes - Review of Systems Constitutional: Normal. absent: Fevers Eyes: Normal ENT: Normal Respiratory: SOB. absent: Normal Cardiovascular: Chest Pain. absent: Normal Gastrointestinal: Normal. absent: Diarrhea, Nausea, Vomiting Genitourinary Male: Normal Musculoskeletal: Back Pain. absent: Normal, Neck Pain Skin: Normal Neurological: Normal. absent: Headache, Dizziness Endocrine: Normal Hemo/Lymphatic: Normal Psychiatric: Normal Physical Exam Vital Signs Reviewed: Yes Vital Signs Temp Pulse Resp BP Pulse Ox 05/31/18 11:59 105 H 20 120/64 96 05/31/18 10:21 92 H 18 141/68 95 05/31/18 10:00 139/75 05/31/18 09:26 98.2 F 100 H 20 139/75 94 L Temperature: Afebrile Blood Pressure: Normal Pulse: Tachycardic Respiratory Rate: Normal Appearance: Positive for: Well-Appearing, Non-Toxic Pain Distress: Mild Mental Status: Positive for: Alert and Oriented X 3 - Systems Exam Head: Present: Atraumatic, Normocephalic Pupils: Present: PERRL Extroacular Muscles: Present: EOMI Conjunctiva: Present: Normal Mouth: Present: Moist Mucous Membranes Neck: Present: Normal Range of Motion Respiratory/Chest: Present: Decreased Breath Sounds, Other (lower lungs have some crackles). No: Clear to Auscultation, Good Air Exchange (decreased air entry), Respiratory Distress, Accessory Muscle Use Cardiovascular: Present: Regular Rate and Rhythm, Normal S1, S2. No: Murmurs Abdomen: No: Tenderness, Distention, Peritoneal Signs Back: Present: Midline Tenderness (some tenderness). No: Normal Inspection Upper Extremity: Present: Normal Inspection. No: Cyanosis, Edema Lower Extremity: Present: Edema (lower extremity edema present). No: Normal Inspection Neurological: Present: GCS=15, CN II-XII Intact, Speech Normal Skin: Present: Warm, Dry, Normal Color. No: Rashes Psychiatric: Present: Alert, Oriented x 3, Normal Insight, Normal Concentration Medical Decision Making ED Course and Treatment: 05/31/18 09:35 Impression: 37 year old male presents to the emergency department for back pain , chest pain, shortness of breath, and leg edema. Differential Diagnosis included but are not limited to: CHF exacerbation, renal failure, musculoskeletal back pain. Plan: -- EKG -- Labs -- X-Ray of chest -- Lasix -- Morphine -- Nitro-Bid 2% Oint -- Urinalysis -- Reassess and disposition Prior Visits: Notes and results from previous visits were reviewed. Patient was last seen in the emergency department on 05/11/18 complaining of sharp pain to the back, chest, associated with shortness of breath. Patient was hospitalized for CHF exacerbation and Pneumonia. Progress Notes: EKG shows atrial fibrillation at 121 BPM with PVC. No ST elevations. Interpreted by me. X-Ray of chest reviewed by radiologist, shows: Dictator : Brant Verma MD Report Date : 05/31/2018 10:36:08 IMPRESSION: Severe cardiomegaly. Moderate vascular congestion. No significant change. 05/31/18 12:07 Patient is improving with lasix, nitro and morphine. He walks a little bit in ED and gets SOB. Discussed case with Dr. Santiago who will admit to her service with Dr. Thomson on consult for Cardiology. - Lab Interpretations Lab Results: 05/31/18 10:15 05/31/18 10:15 Lab Results 05/31/18 10:15: Sodium 141, Potassium 4.4, Chloride 101, Carbon Dioxide 27, Anion Gap 18, BUN 35 H, Creatinine 1.8 H, Est GFR ( Amer) 51, Est GFR ( Non-Af Amer) 42, Random Glucose 116 H, Calcium 9.0, Magnesium 2.2, Total Bilirubin 0.4, AST 25, ALT 20, Alkaline Phosphatase 88, Lactate Dehydrogenase 495, Total Creatine Kinase 139, Troponin I 0.06 D, NT-Pro-B Natriuret Pep 1660 H, Total Protein 8.4 H, Albumin 4.3, Globulin 4.1, Albumin/Globulin Ratio 1.0 L , Lipase 167 05/31/18 10:15: PT 12.9 H, INR 1.12, APTT 33.5 05/31/18 10:15: WBC 11.8 H D, RBC 4.39, Hgb 13.9 L, Hct 41.7 L, MCV 95.0, MCH 31.7, MCHC 33.3, RDW 14.7 H, Plt Count 302, MPV 9.5, Gran % 68.0, Lymph % (Auto ) 18.8 L, Ritchie % (Auto) 12.4 H, Eos % (Auto) 0.7 L, Baso % (Auto) 0.1, Gran # 8.00 H, Lymph # (Auto) 2.2, Ritchie # (Auto) 1.5 H, Eos # (Auto) 0.1, Baso # (Auto ) 0.01 - RAD Interpretation Radiology Orders: 05/31/18 09:40 CHEST PORTABLE [RAD] Stat Feeder Tender: Radiologist - EKG Interpretation Interpreted by ED Physician: Yes Type: 12 lead EKG - Medication Orders Current Medication Orders: Discontinued Medications Furosemide (Lasix) 40 mg IVP STAT STA Stop: 05/31/18 09:41 Last Admin: 05/31/18 10:00 Dose: 40 mg MAR Blood Pressure Document 05/31/18 10:00 SZA (Rec: 05/31/18 10:03 [facility] [id number]) Blood Pressure Blood Pressure (100/60-150/90) 139/75 IVP Administration Document 05/31/18 10:00 SZA (Rec: 05/31/18 10:03 [facility] [id number]) Charges for Administration # of IVP Administrations 1 Morphine Sulfate (Morphine) 4 mg IVP STAT STA Stop: 05/31/18 09:42 Last Admin: 05/31/18 10:03 Dose: 4 mg MAR Pain Assessment Document 05/31/18 10:03 SZA (Rec: 05/31/18 10:03 [facility] [id number]) Pain Reassessment Is this a pain reassessment? No Sleep Is patient sleeping during reassessment? No Presence of Pain Presence of Pain Yes Pain Scale Used Pain Scale Used Numeric IVP Administration Document 05/31/18 10:03 SZA (Rec: 05/31/18 10:03 [facility] [id number]) Charges for Administration # of IVP Administrations 1 Morphine Sulfate (Morphine) 4 mg IVP STAT STA Stop: 05/31/18 11:31 Last Admin: 05/31/18 11:56 Dose: 4 mg MAR Pain Assessment Document 05/31/18 11:56 SZA (Rec: 05/31/18 11:57 [facility] [id number]) Pain Reassessment Is this a pain reassessment? No Sleep Is patient sleeping during reassessment? No Presence of Pain Presence of Pain Yes Pain Scale Used Pain Scale Used Numeric Description Description Intermittent Intensity of Pain at present 5 IVP Administration Document 05/31/18 11:56 MILKA (Rec: 05/31/18 11:57 [facility] [id number]) Charges for Administration # of IVP Administrations 1 Nitroglycerin (Nitro-Bid 2% Oint) 1 ea TOP STAT STA Stop: 05/31/18 09:43 Last Admin: 05/31/18 10:00 Dose: 1 ea - Scribe Statement The provider has reviewed the documentation as recorded by the Scribjudy Sexton All medical record entries made by the Toyibjudy were at my direction and personally dictated by me. I have reviewed the chart and agree that the record accurately reflects my personal performance of the history, physical exam, medical decision making, and the department course for this patient. I have also personally directed, reviewed, and agree with the discharge instructions and disposition. Disposition/Present on Arrival - Present on Arrival Any Indicators Present on Arrival: No History of DVT/PE: No History of Uncontrolled Diabetes: No Urinary Catheter: No History of Decub. Ulcer: No History Surgical Site Infection Following: None - Disposition Have Diagnosis and Disposition been Completed?: Yes Diagnosis: Chest pain, Congestive heart failure (CHF) Disposition: HOSPITALIZED Disposition Time: 12:10 Condition: FAIR
[2018-05-31 10:31] LABS: BASO # 0.01 K/mm3 (0.0-2.0); BASO % 0.1 % (0.0-3.0); EOS # 0.1 (0.0-0.7); EOS % 0.7 % (1.5-5.0); HEMOGLOBIN 13.9 g/dL (14.0-18.0); LYMPH # 2.2 (1.2-3.4); LYMPH % 18.8 % (22.0-35.0); MEAN CORPUSCULAR HEMOGLOBIN 31.7 pg (25.0-35.0); MEAN CORPUSCULAR HGB CONC 33.3 g/dl (31.0-37.0); MEAN PLATELET VOLUME 9.5 fl (7.0-11.0); MONO # 1.5 (0.1-0.6); MONO % 12.4 % (1.0-6.0); RBC 4.39 10^6/uL (3.5-6.1); RED CELL DISTRIBUTION WIDTH 14.7 % (11.5-14.5); WHITE BLOOD COUNT 11.8 10^3/ul (4.5-11.0)
--- NOTE | 2018-05-31 10:37 | RAD ---
Date of service: 05/31/2018 HISTORY: sob r/o chf COMPARISON: 05/11/2018 FINDINGS: LUNGS: No active pulmonary disease. PLEURA: No significant pleural effusion identified, no pneumothorax apparent. CARDIOVASCULAR: Severe cardiomegaly. Moderate vascular congestion. No significant change OSSEOUS STRUCTURES: No significant abnormalities. VISUALIZED UPPER ABDOMEN: Normal. OTHER FINDINGS: None. IMPRESSION: Severe cardiomegaly. Moderate vascular congestion. No significant change
[2018-05-31 10:40] LABS: INR 1.12; PARTIAL THROMBOPLASTIN TIME 33.5 Seconds (25.1-36.5); PROTHROMBIN TIME 12.9 SECONDS (9.4-12.5)
[2018-05-31 10:56] LABS: ALBUMIN 4.3 g/dL (3.0-4.8)
[2018-05-31 10:58] LABS: TROPONIN I 0.06 ng/mL
[2018-05-31 12:13] LABS: URINE BILIRUBIN NEGATIVE (NEGATIVE); URINE BLOOD MODERATE (NEGATIVE); URINE GLUCOSE (UA) NEGATIVE (NEGATIVE); URINE LEUKOCYTE ESTERASE SMALL Leu/uL (NEGATIVE); URINE PROTEIN 30 mg/dL (<30 mg/dL); URINE UROBILINOGEN 0.2 E.U./dL (<1 E.U./dL)
[2018-05-31 12:16] LABS: URINE APPEARANCE CLEAR (CLEAR); URINE COLOR YELLOW (YELLOW)
[2018-05-31 12:28] LABS: URINE BACTERIA SMALL (NEG); URINE EPITHELIAL CELLS 0 - 2 /hpf (0-5)
--- NOTE | 2018-05-31 14:22 | CARD ---
APPROVED REPORT Date of service: 05/31/2018 EKG Measurement Heart [id number] <Conclusion> A. Fib. with rapid ventricular rate, PVCs PRWP Cannot rule out Anterior infarct, age undetermined LAD NSSTW changes
[2018-05-31] MEDS ORDERED: Pneumococcal 23-Valent Vaccine IM ONE (15:21)
[2018-05-31] MEDS: Morphine 4 mg/ml ISec IVP PRN ×2 (16:05→20:43)
[2018-05-31] MEDS ORDERED: Digoxin 500 mcg/2ml (0.5 mg/2ml) Inj IVP ONE ×2 (16:29→20:30)
[2018-05-31] MEDS ORDERED: metOLazone 5 MG TAB PO STA (16:32)
[2018-05-31] MEDS: Milrinone 20mg/100ml D5W 100 ML IV PRN ×2 (17:08→23:39)
[2018-05-31] MEDS: Amylase/Lipase/Protease 5,000 Units ECC PO SCH ×2 (17:17→17:45)
--- NOTE | 2018-05-31 23:14 | HP ---
Copied To: Sammy Santiago MD Attending MD: Sammy Santiago MD HISTORY OF PRESENT ILLNESS: The patient is a 37-year-old, known to me from multiple previous admissions, came to emergency room because of increasing shortness of breath. The patient was in office two days ago, had Chem-7 done. His creatinine was 1.7, so when he was told he state he is not feeling well and having shortness of breath and he will watch for a day or two, if he did not feel better, he will go to emergency room. in the emergency room with complaint of shortness of breath. Denies any fever or chills. No history of abdominal pain. Complained of mid back pain, complained of chest pressure and also complained of having bilateral leg swelling. PAST MEDICAL HISTORY: Significant for: 1. Nonischemic cardiomyopathy. 2. Morbid obesity. 3. Nephrolithiasis with left ureteral stent placement. 4. Recurrent pancreatitis. 5. Nephrolithiasis. ALLERGIES: HE IS ALLERGIC TO LUZ INHIBITORS, CAUSED LIP SWELLING, ANGINA, NEUROTIC EDEMA. MEDICATIONS AT HOME: He is on Pepcid 20 mg daily, Coreg 12.5 twice a day, Eliquis 2.5 twice a day. He is on pancreatic enzyme, nebulizer treatment, Aldactone 25 daily, Dilaudid 2 mg three times a day, Lasix 40 mg twice a day. SOCIAL HISTORY: He is active smoker. He used to be very heavy smoker and he used to drink heavy alcohol in remote past. PHYSICAL EXAMINATION: GENERAL: He is awake, alert, oriented, complained of shortness of breath, get extremely short of breath when he walks little distance. VITAL SIGNS: He is afebrile, pulse 100, respiration 20, blood pressure 120/64. LUNGS: Bilateral fair airflow. No rhonchi or crackle. HEART: S1 and S2 audible. ABDOMEN: Soft, obese, nontender. No rebound, no guarding. NEUROLOGIC: He is awake, alert, oriented, communicative. LABORATORY DATA: WBC is 11.8, hemoglobin 13.9, hematocrit 41.7, platelet 302. PT 12.9, INR 1.12. Chemistry: Sodium 141, potassium 4.4, chloride 101, CO2 of 27, BUN 35, creatinine 1.8, blood sugar 116. BNP 1660. Urinalysis shows moderate blood, small leukocyte, wbc's and rbc's are pending. His x-ray chest shows severe cardiomegaly, moderate vascular congestion. No significant change. ASSESSMENT: 1. Congestive heart failure. 2. Morbid obesity. 3. Nonischemic cardiomyopathy. 4. Hyperlipidemia. 5. Recurrent pancreatitis. PLAN: The patient will be admitted, might need Primacor drip. We will keep him on IV diuretics. Restart him on Eliquis since he has paroxysmal atrial fibrillation. Start him on Xopenex and Zofran as needed. Sammy Santiago MD
[2018-06-01] MEDS: Morphine 4 mg/ml ISec IVP PRN ×6 (01:11→21:49)
--- NOTE | 2018-06-01 04:03 | CON ---
Copied To: Shayna Thomson MD Attending MD: Shayna Thomson MD DATE: 05/31/2018 SERVICE: CARDIOLOGY REASON FOR THE CONSULTATION: Chest pain, radiating to the back and shortness of breath. BRIEF CLINICAL HISTORY: This is a 37-year-old morbidly obese male with more than 470 pound weight, body mass index 58 kg/m sq, history of nonischemic cardiomyopathy, chronic atrial fibrillation, diabetes, hypertension, hyperlipidemia, ex-smoker; now slow down, ex-heavy alcohol abuse who recently discharged, admitted with history of chronic atrial fibrillation, history of chronic renal insufficiency with creatinine clearance around 40 to 50 mL, came in with complaint of increased leg swelling, more shortness of breath on walking and back pain radiated into back and increases on taking a deep breath. PAST MEDICAL HISTORY: Significant for hypertension, morbid obesity, congestive heart failure, secondary to alcohol abuse in the past, history of non-ischemic cardiomyopathy, status post cardiac catheterization 3 to 4 years ago at [facility], history of recurrent pancreatitis secondary to alcohol abuse in the past, history of renal colic, history of stone in the kidney, history of chronic atrial fibrillation on Eliquis, history of chronic renal insufficiency. PREVIOUS CARDIAC WORKUP: The patient had a cardiac catheterization 3 to 4 years ago now at [facility], was told normal coronaries. The patient had echo on 07/05/2017 that showed ejection fraction of 40%, RV systolic pressure of 18, trace mitral regurgitation, trace tricuspid regurgitation, moderately dilated ventricle. He had a repeat echo done on last admission, dated 04/25/2018, that shows four chamber dilatation, cardiomyopathy, ejection fraction 30% to 35%. At that time patient is on Primacor, moderate tricuspid regurgitation. Last MUGA scan, 08/04/2017 that showed ejection fraction of 55%, history of chronic atrial fibrillation. Moderate mitral regurgitation, moderate tricuspid regurgitation on last echo dated 04/25/2018, RV systolic pressure reported 51 on last echo 04/25/2018. The patient's baseline creatinine around 1 to 1.9. CURRENT MEDICATIONS: Patient is taking spironolactone 25 mg daily, Reglan 10 mg daily, Dilaudid 2 mg daily, Lasix 40 p.o. b.i.d., Pepcid, carvedilol, Eliquis, albuterol. ALLERGIES: TO LUZ INHIBITORS, PATIENT GETS ANGIOEDEMA. PHYSICAL EXAMINATION: VITAL SIGNS: As follows, height of the patient 6 feet 3 inches, weight of the patient 460 pounds, body mass index 58 kg/m sq. Rest of examination, temperature 98, heart rate 125, blood pressure 120/64. HEENT: PERRLA. Extraocular muscles are intact. NECK: Supple. No carotid bruits or thyromegaly. CHEST: Clear to auscultation. HEART: S1 and S2, regular. ABDOMEN: Soft. EXTREMITIES: Clubbing and cyanosis negative. LABORATORY DATA: Blood workup as follows: WBC 11.8, hemoglobin 13.9, hematocrit 41.7, platelet 302. Chemistry shows sodium 141, potassium 4.4, chloride 101, carbon dioxide 27, anion gap of 18, BUN 35, creatinine 1.8. BNP 1660. IMPRESSION AND PLAN: A 37-year-old male with a past medical history significant for nonischemic cardiomyopathy, status post cardiac catheterization 3 to 4 years ago at [facility], was told negative, history of recurrent pancreatitis secondary to alcohol abuse, history of tobacco abuse, currently patient decreased to 3 to 4 cigarette a day, history of pancreatitis, history of chronic atrial fibrillation, history of nonischemic cardiomyopathy on multiple admission with recurrent congestive heart failure, systolic, acute and chronic systolic dysfunction, morbid obesity with diabetes, hypertension, hyperlipidemia. History of last echo on 04/25/2018, which showed the ejection fraction, 30% to 35%, Primacor at that time, moderate mitral regurgitation, moderate tricuspid regurgitation, right ventricular systolic pressure 51. I discussed at length with the patient. We will start Primacor, adjust the dose of Eliquis, patient is on 2.5, we will increase to 5. Continue Lasix IV and gave some Zaroxolyn. Monitor renal function, though the chest pain is atypical . Follow up his serial CPK, troponin. We will follow with you. If the lipid profile, TSH, and hemoglobin A1c was not done recently, we will repeat. Thank you, Dr. Santiago, for providing us the opportunity in taking care of the patient, Gareth Leblanc. Shayna Thomson MD
[2018-06-01 07:21] LABS: BASO # 0.01 K/mm3 (0.0-2.0); BASO % 0.1 % (0.0-3.0); EOS # 0.1 (0.0-0.7); EOS % 1.4 % (1.5-5.0); GRAN # 6.28 (1.4-6.5); GRAN % 63.7 % (50.0-68.0); HEMOGLOBIN 13.8 g/dL (14.0-18.0); LYMPH # 2.2 (1.2-3.4); LYMPH % 22.4 % (22.0-35.0); MEAN CELL VOLUME 93.9 fl (80.0-105.0); MEAN CORPUSCULAR HEMOGLOBIN 31.2 pg (25.0-35.0); MEAN CORPUSCULAR HGB CONC 33.2 g/dl (31.0-37.0); MEAN PLATELET VOLUME 9.7 fl (7.0-11.0); MONO # 1.2 (0.1-0.6); MONO % 12.4 % (1.0-6.0); RBC 4.43 10^6/uL (3.5-6.1); RED CELL DISTRIBUTION WIDTH 14.6 % (11.5-14.5); WHITE BLOOD COUNT 9.9 10^3/ul (4.5-11.0)
--- NOTE | 2018-06-01 07:23 | CP.PCM.PN ---
Subjective - Date & Time of Evaluation Date of Evaluation: 06/01/18 Time of Evaluation: 06:30 - Subjective Subjective: easily awaken, complaints of shortness of breath and chronic sharp mid back pain Reason for consultation and follow up:Cardiac evaluation of shortness of breath and chest pain, history of non ischemic cardiomyopathy, systolic congestive heart failure, chronic atrial fibrillation on Eliquis, pancreatitis due to alcohol abuse Seen and examined by me and Dr. Thomson Objective - Vital Signs/Intake and Output Vital Signs (last 24 hours): Temp Pulse Resp BP Pulse Ox 97.8 F 83 20 132/77 96 06/01/18 05:58 06/01/18 05:58 06/01/18 05:58 06/01/18 05:58 06/01/18 05:58 Intake and Output: 06/01/18 06/01/18 06:59 18:59 Intake Total 1090 Output Total 3025 Balance -1935 - Medications Medications: Current Medications Amylase (Pancrease 29957 U-5000 U-45256 U) 15,000 unit PO AC [facility] Last Admin: 05/31/18 17:45 Dose: Not Given Apixaban (Eliquis) 5 mg PO BID [facility] PRN Reason: Protocol Last Admin: 05/31/18 17:18 Dose: 5 mg Carvedilol (Coreg) 3.125 mg PO BID [facility] Last Admin: 05/31/18 17:17 Dose: 3.125 mg Digoxin (Digoxin) 0.125 mg PO 1400 [facility] Famotidine (Pepcid) 20 mg PO DAILY [facility] Last Admin: 05/31/18 13:45 Dose: 20 mg Furosemide (Lasix) 80 mg IVP TID [facility] Last Admin: 05/31/18 17:18 Dose: 80 mg Milrinone Lactate/Dextrose (Primacor 20mg/100ml D5w) 100 mls @ 12.546 mls/hr IV .Q7H59M PRN; Protocol; 0.2 MCG/KG/MIN PRN Reason: TITRATE PER MD ORDER Last Admin: 05/31/18 23:39 Dose: 0.2 mcg/kg/min, 12.546 mls/hr Metolazone (Zaroxolyn) 5 mg PO DAILY [facility] Morphine Sulfate (Morphine) 4 mg IVP Q4H PRN PRN Reason: Pain, moderate (4-7) Last Admin: 06/01/18 05:28 Dose: 4 mg Ondansetron HCl (Zofran Inj) 4 mg IVP Q6H PRN PRN Reason: Nausea/Vomiting Spironolactone (Aldactone) 25 mg PO BID [facility] Last Admin: 05/31/18 17:17 Dose: 25 mg Verapamil HCl (Calan Tab) 40 mg PO TID [facility] Last Admin: 05/31/18 17:17 Dose: 40 mg - Labs Labs: PT 12.9 SECONDS (9.4-12.5) H 05/31/18 10:15 INR 1.12 05/31/18 10:15 APTT 33.5 Seconds (25.1-36.5) 05/31/18 10:15 - Constitutional Appears: No Acute Distress - Eye Exam Eye Exam: Normal appearance - ENT Exam ENT Exam: Mucous Membranes Moist - Respiratory Exam Respiratory Exam: Decreased Breath Sounds, NORMAL BREATHING PATTERN - Cardiovascular Exam Cardiovascular Exam: Irregular Rhythm, +S1, +S2 Additional comments: Telemetry Afib 90's - GI/Abdominal Exam GI & Abdominal Exam: Soft, Normal Bowel Sounds - Extremities Exam Additional comments: 3+edema - Neurological Exam Neurological Exam: Alert, Awake, Oriented x3 - Psychiatric Exam Psychiatric exam: Normal Affect - Skin Skin Exam: Dry, Warm Assessment and Plan - Assessment and Plan (Free Text) Assessment: A 37 year old male,morbidly obese who came in to the ER due to shortness of breath,chronic back pain ,chest pain,history of non ischemic cardiomyopathy, chronic atrial fibrillation,on Eliquis, diabetes, hypertension, hyperlipidemia, ex-smoker,pancreatitis due to alcohol abuse,,congestive heart failure. He was recently discharged from [facility] for the same symptoms. Atypical cheat pain,Acute chronic systolic congestive heart failure. Started on Primacor drip. Plan: Denies chest pain,denies shortness of breath at rest Complaints of back pain, Morphine given as ordered Continue Primacor drip Controlled heart rate and blood pressure Telemetry Afib-controlled rate On Eliquis 5 mg BID,Coreg 3.125 mg BID, digoxin 0.125 mg daily Lasix 80 mg IV TID,Zaroxolyn 5 mg daily,Aldactone 25 mg BID Verapamil 40 mg TID Continue current treatment Continue current medications Strict I&O Lifestyle modification Weight reduction Will follow up Plan and treatment discussed with Dr. Thomson
[2018-06-01 07:40] LABS: ALB/GLOB RATIO 1.1 (1.1-1.8); ALBUMIN 4.3 g/dL (3.0-4.8); ALT/SGPT 16 U/L (7-56); AST/SGOT 27 U/L (17-59); BLOOD UREA NITROGEN 36 mg/dL (7-21); CALCIUM 9.5 mg/dL (8.4-10.5); GFR NON-AFRICAN AMERICAN 52; HDL CHOLESTEROL 35 mg/dL (29-60)
[2018-06-01 07:44] LABS: LDL CHOLESTEROL 81 mg/dL (0-129); TROPONIN I 0.06 ng/mL
[2018-06-01] MEDS ORDERED: Potassium Chloride 20 mEq ER Tab PO ONE (09:02)
[2018-06-01] MEDS: Milrinone 20mg/100ml D5W 100 ML IV PRN ×2 (09:27→17:46)
[2018-06-01] MEDS: Amylase/Lipase/Protease 5,000 Units ECC PO SCH ×3 (09:37→18:05)
[2018-06-01] MEDS: metOLazone 5 MG TAB PO SCH (10:40)
[2018-06-01] MEDS: Digoxin 125 mcg (0.125 mg) Tab PO SCH (13:09)
--- NOTE | 2018-06-01 13:10 | CON ---
Copied To: Angelica Don MD Attending MD: Angelica Don MD DATE: 06/01/2018 REASON FOR CONSULTATION: Chronic kidney disease stage 2/3, CHF, shortness of breath. HISTORY OF PRESENTING ILLNESS: A 37-year-old male with morbid obesity, well-known to us from prior evaluations. The patient presented to the emergency room with complaints of progressive shortness of breath. The patient has been admitted to the hospital with similar complaints earlier in the month. The patient reports that he is compliant with his medications. He has been taking his Lasix 80 mg b.i.d. He has been urinating a lot, but he has been having progressive dyspnea on exertion, difficulty ambulating, increased lower extremity edema. He denies any burning in the urine. He denies any fevers. He denies any chills. He denies any chest tightness. PAST MEDICAL AND SURGICAL HISTORY: Morbid obesity, severe hypertension, left ventricular hypertrophy, hypertensive heart disease, pulmonary hypertension?, chronic kidney disease stage II/III, acute kidney injury, left hydronephrosis, history of pyelonephritis, left ureteral stent, left kidney stones. FAMILY HISTORY: Hypertension. SOCIAL HISTORY: The patient is an active smoker, denies alcohol use at present, the patient has narcotic dependence for pain medications. REVIEW OF SYSTEMS: All systems are reviewed, pertinent positives as mentioned in the history of presenting illness, rest unremarkable. PHYSICAL EXAMINATION: GENERAL: Morbidly obese young male, lying in bed, in mild respiratory distress. VITAL SIGNS: Blood pressure 138/63, heart rate 88, respiratory rate 20, temperature 97.8. HEENT: Normocephalic, atraumatic, no pallor, no icterus. NECK: Supple, no JVD. LUNGS: Bilateral equal air entry, distant breath sounds, no rales appreciated, scattered rhonchi. CARDIAC: S1 and S2, regular rate and rhythm, no murmur, no rub. ABDOMEN: Obese, distended, soft, nontender, bowel sounds present. EXTREMITIES: 1+ pitting edema of the lower extremities. INTAKE AND OUTPUT: 1690/3325. LABORATORY DATA: WBC 9.9, hemoglobin 13.8, hematocrit 42, platelets 291. Sodium 134, potassium 3.8, chloride 93, CO2 of 28, BUN 36, creatinine 1.5, glucose 102, calcium 9.5, phosphorus 5.1, magnesium 2, albumin 4.3, globulin 4.1, TSH 1, lipase 167. Urinalysis: Yellow, clear, pH 6, specific gravity 1.020, protein 30, blood moderate, leukocyte esterase small. CURRENT MEDICATIONS: Aldactone 25 b.i.d., Calan 40 t.i.d., Coreg 3.125 b.i.d., digoxin 0.125, Eliquis 5 b.i.d., Lasix 80 IV t.i.d., morphine, amylase, Pepcid, Primacor, Zaroxolyn 5 daily, Zofran. ASSESSMENT: 1. Decompensated congestive heart failure, volume overload. 2. Acute kidney injury superimposed on chronic kidney disease stage 3, resolved acute kidney injury. 3. Morbid obesity. 4. Hypertensive heart disease. 5. History of pancreatitis. 6. Narcotic dependence. 7. History of left hydronephrosis, left ureteral stent. PLAN: 1. Agree with aggressive diuresis. The patient has been placed on Primacor as per Cardiology recommendations. Continue Lasix 80 mg IV t.i.d. for 24-48 hours. Agree with Zaroxolyn 5 mg daily. 2. Monitor urine output closely. 3. Monitor daily electrolytes. 4. In light of elevated phosphorus levels, check intact PTH levels. 5. Avoid nephrotoxins. Thank you for the courtesy of this consultation. We will follow this patient closely with you. Angelica Don MD
--- NOTE | 2018-06-01 23:40 | PN ---
Copied To: Sammy Santiago MD Attending MD: Sammy Santiago MD DATE: 06/01/2018 SUBJECTIVE: Patient is [id number], seen and examined with complain of shortness of breath on minimal exertion. Complain of bilateral leg swelling. Complain of mid back pain. No nausea, vomiting. No diarrhea. PHYSICAL EXAMINATION: VITAL SIGNS: He is afebrile. Pulse 80, respirations 18, blood pressure 140/81. LUNGS: Bilateral fair airflow. No rhonchi or crackle. HEART: S1 and S2 audible. ABDOMEN: Soft, obese, nontender. No rebound. No guarding. NEUROLOGIC: He is aware, alert, oriented, communicative. LABORATORY EXAM: WBC 9.9, hemoglobin 13.8, hematocrit 41.6, platelets 291. Chemistry: Sodium 134, potassium 3.8, chloride 93, CO2 of 28, BUN 36, creatinine 1.5, blood sugar of 102. LFTs are within normal limits. Urine cultures are pending. ASSESSMENT: 1. Congestive heart failure. 2. Ischemic cardiomyopathy. 3. Morbid obesity. 4. Bilateral leg edema. 5. Recurrent pancreatitis. 6. Nephrolithiasis status post left ureteral stent placement. 7. Narcotic dependence. 8. History of left hydronephrosis. PLAN: Currently patient is on Primacor drip and he is getting IV diuretics. Encouraged out of bed to chair. Continue him on verapamil, spironolactone. He is on carvedilol as per Cardiology and has been started on digoxin. He is on Eliquis. Follow up his electrolyte, CBC and CMP in a.m. Sammy Santiago MD
[2018-06-02] MEDS: Milrinone 20mg/100ml D5W 100 ML IV PRN ×4 (01:21→23:54)
[2018-06-02] MEDS: Morphine 4 mg/ml ISec IVP PRN ×6 (01:48→22:38)
[2018-06-02] MEDS: Amylase/Lipase/Protease 5,000 Units ECC PO SCH ×3 (08:26→16:47)
[2018-06-02 10:15] LABS: ALBUMIN 4.4 g/dL (3.0-4.8); CALCIUM 9.5 mg/dL (8.4-10.5); URIC ACID 15.1 mg/dL (3.5-8.5)
[2018-06-02] MEDS: metOLazone 5 MG TAB PO SCH (10:45)
[2018-06-02] MEDS: Digoxin 125 mcg (0.125 mg) Tab PO SCH (14:35)
[2018-06-02] MEDS ORDERED: Potassium Chloride 20 mEq ER Tab PO ONE (15:15)
[2018-06-02] MEDS: Potassium Chloride 20 mEq ER Tab PO ONE ×2 (15:30→15:48)
--- NOTE | 2018-06-02 17:21 | PN ---
Copied To: Sammy Santiago MD Attending MD: Sammy Santiago MD DATE: 06/02/2018 SUBJECTIVE: The patient is 37 years old, seen and examined. Still complained of mid back pain. Shortness of breath is better. Able to talk full sentences without getting short of breath. PHYSICAL EXAMINATION: VITAL SIGNS: The patient is afebrile, pulse 56, respirations 18, blood pressure 119/54. LUNGS: Bilateral fair airflow. Diffusely decreased breath sound. No rhonchi or crackle. HEART: S1 and S2 audible. ABDOMEN: Soft. Nontender. No rebound. No guarding. NEUROLOGICAL: The patient is awake, alert, oriented, communicative. EXTREMITIES: Bilateral leg, no edema. LABORATORY EXAM: Sodium 131, potassium 3.6, chloride 87, CO2 of 31, BUN 42, creatinine 1.6, blood sugar of 151, uric acid is 15.1 ASSESSMENT: 1. Nonischemic cardiomyopathy. 2. Morbid obesity. 3. Chronic kidney disease. 4. Bilateral leg edema. 5. Hyperuricemia. 6. Intermittent atrial fibrillation. 7. Intermittent pancreatitis PLAN: His Lasix has been cut down. He is on Primacor drip. We will start him on allopurinol since his uric acid is high and analgesic as needed. We will follow up electrolytes in the a.m. Sammy Santiago MD
--- NOTE | 2018-06-02 23:29 | CP.PCM.PN ---
Subjective - Date & Time of Evaluation Date of Evaluation: 06/02/18 Time of Evaluation: 10:30 - Subjective Subjective: Patient being seen for Drs. Don/Rachana: 37 yo M w/ pmh of non-ischemic cardiomyopathy, CKD II/III, chronic pancreatitis s/p celiac block, recurrent diverticulitis, morbid obesity and nephrolithiasis w / in-dwelling L ureteral stent, admitted with acute decompensated CHF; Reports dyspnea improved but still requiring O2 via nasal cannula overnight; leg swelling improved; urinating excessively; Objective - Vital Signs/Intake and Output Vital Signs (last 24 hours): Temp Pulse Resp BP Pulse Ox 97.5 F L 100 H 18 104/56 L 97 06/02/18 18:00 06/02/18 22:00 06/02/18 18:00 06/02/18 18:34 06/02/18 18:00 Intake and Output: 06/02/18 06/03/18 18:59 06:59 Intake Total 1860 Output Total 3325 Balance -1465 - Medications Medications: Current Medications Allopurinol (Zyloprim) 100 mg PO DAILY [facility] Last Admin: 06/02/18 16:46 Dose: 100 mg Amylase (Pancrease 16388 U-5000 U-15137 U) 15,000 unit PO AC [facility] Last Admin: 06/02/18 16:47 Dose: 15,000 unit Apixaban (Eliquis) 5 mg PO BID [facility] PRN Reason: Protocol Last Admin: 06/02/18 18:31 Dose: 5 mg Carvedilol (Coreg) 3.125 mg PO BID [facility] Last Admin: 06/02/18 18:33 Dose: 3.125 mg Digoxin (Digoxin) 0.125 mg PO 1400 [facility] Last Admin: 06/02/18 14:35 Dose: 0.125 mg Famotidine (Pepcid) 20 mg PO DAILY [facility] Last Admin: 06/02/18 10:16 Dose: 20 mg Furosemide (Lasix) 80 mg IVP BID [facility] Last Admin: 06/02/18 18:34 Dose: 80 mg Milrinone Lactate/Dextrose (Primacor 20mg/100ml D5w) 100 mls @ 12.546 mls/hr IV .Q7H59M PRN; Protocol; 0.2 MCG/KG/MIN PRN Reason: TITRATE PER MD ORDER Stop: 06/03/18 07:00 Last Admin: 06/02/18 16:26 Dose: 0.2 mcg/kg/min, 12.546 mls/hr Metolazone (Zaroxolyn) 5 mg PO DAILY [facility] Last Admin: 06/02/18 10:45 Dose: 5 mg Morphine Sulfate (Morphine) 4 mg IVP Q4H PRN PRN Reason: Pain, moderate (4-7) Last Admin: 06/02/18 22:38 Dose: 4 mg Ondansetron HCl (Zofran Inj) 4 mg IVP Q6H PRN PRN Reason: Nausea/Vomiting Spironolactone (Aldactone) 25 mg PO BID [facility] Last Admin: 06/02/18 18:32 Dose: 25 mg Verapamil HCl (Calan Tab) 40 mg PO TID [facility] Last Admin: 06/02/18 18:30 Dose: 40 mg - Labs Labs: 06/02/18 09:30 PT 12.9 SECONDS (9.4-12.5) H 05/31/18 10:15 INR 1.12 05/31/18 10:15 APTT 33.5 Seconds (25.1-36.5) 05/31/18 10:15 - Constitutional Appears: Non-toxic, No Acute Distress - Eye Exam Eye Exam: Normal appearance - Respiratory Exam Respiratory Exam: Clear to Ausculation Bilateral. absent: Respiratory Distress - Cardiovascular Exam Cardiovascular Exam: +S1, +S2. absent: Gallop, JVD, Rubs - GI/Abdominal Exam GI & Abdominal Exam: Soft. absent: Distended, Tenderness - Extremities Exam Additional comments: mild b/l leg edema; - Neurological Exam Neurological Exam: Alert, Awake - Psychiatric Exam Psychiatric exam: Normal Mood. absent: Agitated - Skin Skin Exam: Warm. absent: Cyanosis Assessment and Plan (1) CHF exacerbation Assessment & Plan: Acute decompensated systolic CHF; started on milirinone drip by cardiology; has been diuresing well on IV lasix 80 mg tid along with metolazone and aldactone; doesn't appear to be volume overloaded on exam today although still with dyspnea ; also, developing metabolic alkalosis from diuretics as well as hyponatremia; -decrease IV lasix 80 mg to bid dosing; -hold metolazone; -continue aldactone 25 mg (will help offset alkalosis); -keep serum K level ~4.0 to avoid arryhthmias; Status: Acute (2) CKD (chronic kidney disease) Assessment & Plan: CKD II/IIIA; non-proteinuric kidney disease, likely of cardiorenal etiology; mainstay of therapy is to optimize cardiac status; otherwise, renal function relatively stable; need to avoid over-diuresis; Status: Chronic (3) Electrolyte imbalance Assessment & Plan: Mild hyponatremia likely due to intravascular volume depletion from diuretics; -holding metolazone as above; -aldactone may be contributory but will continue for now; -1200 cc PO fluid restriction; Status: Acute (4) Nephrolithiasis Assessment & Plan: Mostly uric acid stone, some calcium oxalate component; may benefit from urate lowering med especially with high uric acid level and patient on high dose diuretics; should also alkalinize urine with potassium citrate to achieve pH ~ 6.5; Status: Chronic (5) Hyperuricemia Assessment & Plan: Agree with starting allopurinol 100 mg daily; should titrate dose upward every 2 weeks as needed; Status: Acute
[2018-06-03] MEDS: Morphine 4 mg/ml ISec IVP PRN ×6 (02:39→22:35)
[2018-06-03] MEDS: Amylase/Lipase/Protease 5,000 Units ECC PO SCH ×3 (08:31→17:15)
[2018-06-03] MEDS: Milrinone 20mg/100ml D5W 100 ML IV PRN ×3 (12:03→23:51)
[2018-06-03 13:12] LABS: ALBUMIN 4.7 g/dL (3.0-4.8); CALCIUM 9.9 mg/dL (8.4-10.5)
[2018-06-03] MEDS: Levalbuterol 0.63 MG/3 ML Inhal Soln UD IH SCH ×2 (14:02→20:15)
[2018-06-03] MEDS: Digoxin 125 mcg (0.125 mg) Tab PO SCH (15:25)
[2018-06-03] MEDS ORDERED: Potassium Chloride 20 mEq ER Tab PO ONE ×2 (19:53→21:47)
--- NOTE | 2018-06-03 22:17 | CP.PCM.PN ---
Subjective - Date & Time of Evaluation Date of Evaluation: 06/03/18 Time of Evaluation: 22:00 - Subjective Subjective: Patient reports dyspnea improving; tolerating diet; urinating excessively, less today after decreasing lasix frequency; having trouble adhering to PO fluid restriction; Objective - Vital Signs/Intake and Output Vital Signs (last 24 hours): Temp Pulse Resp BP Pulse Ox 97.6 F 84 20 149/77 96 06/03/18 12:00 06/03/18 22:00 06/03/18 18:00 06/03/18 18:00 06/03/18 18:00 Intake and Output: 06/03/18 06/04/18 18:59 06:59 Intake Total 1504 1260 Output Total 3075 3075 Balance -1571 -1815 - Medications Medications: Current Medications Allopurinol (Zyloprim) 100 mg PO DAILY [facility] Last Admin: 06/03/18 09:41 Dose: 100 mg Amylase (Pancrease 06383 U-5000 U-59524 U) 15,000 unit PO AC [facility] Last Admin: 06/03/18 17:15 Dose: 15,000 unit Apixaban (Eliquis) 5 mg PO BID [facility] PRN Reason: Protocol Last Admin: 06/03/18 17:16 Dose: 5 mg Carvedilol (Coreg) 3.125 mg PO BID [facility] Last Admin: 06/03/18 17:15 Dose: 3.125 mg Digoxin (Digoxin) 0.125 mg PO 1400 [facility] Last Admin: 06/03/18 15:25 Dose: 0.125 mg Famotidine (Pepcid) 20 mg PO DAILY [facility] Last Admin: 06/03/18 09:40 Dose: 20 mg Furosemide (Lasix) 80 mg IVP BID [facility] Last Admin: 06/03/18 17:13 Dose: 80 mg Milrinone Lactate/Dextrose (Primacor 20mg/100ml D5w) 100 mls @ 12.301 mls/hr IV .Q8H8M PRN; Protocol; 0.2 MCG/KG/MIN PRN Reason: TITRATE PER MD ORDER Last Admin: 06/03/18 16:32 Dose: 0.2 mcg/kg/min, 12.301 mls/hr Levalbuterol HCl (Xopenex) 0.63 mg IH TIDRESP [facility] Last Admin: 06/03/18 20:15 Dose: 0.63 mg Metolazone (Zaroxolyn) 5 mg PO DAILY [facility] Last Admin: 06/02/18 10:45 Dose: 5 mg Morphine Sulfate (Morphine) 4 mg IVP Q4H PRN PRN Reason: Pain, moderate (4-7) Last Admin: 06/03/18 18:48 Dose: 4 mg Ondansetron HCl (Zofran Inj) 4 mg IVP Q6H PRN PRN Reason: Nausea/Vomiting Potassium Citrate (Urocit-K Er Tab) 10 meq PO BID [facility] Spironolactone (Aldactone) 25 mg PO BID [facility] Last Admin: 06/03/18 17:16 Dose: 25 mg Verapamil HCl (Calan Sr Tab) 120 mg PO DAILY [facility] - Labs Labs: 06/03/18 12:30 PT 12.9 SECONDS (9.4-12.5) H 05/31/18 10:15 INR 1.12 05/31/18 10:15 APTT 33.5 Seconds (25.1-36.5) 05/31/18 10:15 - Constitutional Appears: Non-toxic, No Acute Distress - Eye Exam Eye Exam: Normal appearance - ENT Exam ENT Exam: absent: Mucous Membranes Moist - Respiratory Exam Respiratory Exam: Clear to Ausculation Bilateral. absent: Rales, Respiratory Distress - Cardiovascular Exam Cardiovascular Exam: RRR, +S1, +S2. absent: Gallop - GI/Abdominal Exam GI & Abdominal Exam: Soft. absent: Distended - Extremities Exam Additional comments: mild lower leg edema b/l - Neurological Exam Neurological Exam: Alert, Awake - Psychiatric Exam Psychiatric exam: Normal Mood. absent: Agitated - Skin Skin Exam: Warm. absent: Cyanosis Assessment and Plan (1) CHF exacerbation Assessment & Plan: Acute decompensated systolic CHF; on milrinone drip; CHF signs/symptoms much improved; still with mild hypokalemia, will supplement; mild hyponatremia likely due to relative intravascular volume depletion caused diuretics; -continue IV lasix 80 mg bid; -continue aldactone 25 mg bid; -1500 cc PO fluid restriction to prevent further worsening of hyponatremia; Status: Acute (2) CKD (chronic kidney disease) Assessment & Plan: Consistent with cardiorenal etiology; mainstay of treatment is CHF optimization via B-blockers; use of ARB may not be completely contraindicated despite LUZ inhibitor allergy; Status: Chronic (3) Nephrolithiasis Assessment & Plan: With severe hyperuricemia, worsened by diuretics; -continue allopurinol; should increase dose at 2 week intervals as needed; -starting potassium citrate 10 meq bid to help alkalanize urine as well as supplement K; Status: Chronic (4) Hyperuricemia Status: Acute (5) Electrolyte imbalance Status: Acute
[2018-06-04] MEDS: Morphine 4 mg/ml ISec IVP PRN ×6 (03:02→22:14)
[2018-06-04 07:03] LABS: BASO # 0.01 K/mm3 (0.0-2.0); BASO % 0.1 % (0.0-3.0); EOS # 0.1 (0.0-0.7); EOS % 0.7 % (1.5-5.0); GRAN # 6.91 (1.4-6.5); GRAN % 64.4 % (50.0-68.0); HEMOGLOBIN 15.5 g/dL (14.0-18.0); LYMPH % 18.6 % (22.0-35.0); MEAN CELL VOLUME 91.7 fl (80.0-105.0); MEAN CORPUSCULAR HEMOGLOBIN 31.3 pg (25.0-35.0); MEAN CORPUSCULAR HGB CONC 34.1 g/dl (31.0-37.0); MEAN PLATELET VOLUME 9.9 fl (7.0-11.0); MONO # 1.7 (0.1-0.6); MONO % 16.2 % (1.0-6.0); RBC 4.96 10^6/uL (3.5-6.1); RED CELL DISTRIBUTION WIDTH 14.2 % (11.5-14.5); WHITE BLOOD COUNT 10.7 10^3/ul (4.5-11.0)
[2018-06-04] MEDS: Levalbuterol 0.63 MG/3 ML Inhal Soln UD IH SCH ×3 (07:31→20:10)
[2018-06-04 07:42] LABS: ALBUMIN 4.5 g/dL (3.0-4.8); CALCIUM 9.6 mg/dL (8.4-10.5)
[2018-06-04] MEDS: Amylase/Lipase/Protease 5,000 Units ECC PO SCH ×3 (07:53→16:36)
[2018-06-04] MEDS: Milrinone 20mg/100ml D5W 100 ML IV PRN ×2 (08:49→17:58)
[2018-06-04] MEDS: Verapamil 120 mg ER Tab PO SCH (09:28)
[2018-06-04] MEDS ORDERED: metOLazone 5 MG TAB PO SCH (09:55)
--- NOTE | 2018-06-04 13:29 | PN ---
Copied To: Shayna Thomson MD Attending MD: Shayna Thomson MD DATE: 06/04/2018 REASON FOR CONSULTATION AND FOLLOWUP: Shortness of breath, decompensated congestive heart failure, [id number] systolic dysfunction. SUBJECTIVE: Patient denies any chest pain. Feels a lot better, but still mildly short of breath, but sodium went down. PHYSICAL EXAMINATION: GENERAL: Not in apparent distress, sitting at the bedside. VITAL SIGNS: Temperature afebrile, heart rate 79, blood pressure 110/62. HEENT: PERRLA. Extraocular muscles are intact. NECK: Supple. No carotid bruit or thyromegaly. CHEST: Clear to auscultation. HEART: S1 and S2 regular. ABDOMEN: Soft. EXTREMITIES: Clubbing and cyanosis negative. LABORATORY DATA: Blood workup: WBC 10.3, hemoglobin 15.5, hematocrit 45.5, platelet count 302. Chemistry shows sodium 134, potassium 3.7, chloride 89, carbon dioxide 31, anion gap of 17, BUN 15 and creatinine 1.8. Total protein 9.7, globulin 4.5, and albumin-globulin ratio 1. IMPRESSION: A 37-year-old male with past medical history significant for morbid obesity, nonischemic cardiomyopathy, status post cardiac catheterization 3 to 4 years ago at [facility], nonobstructive coronary artery disease, morbid obesity with body mass index elevated, and body weight 450 pounds, admitted with decompensated congestive heart failure, history of chronic atrial fibrillation, history of chronic kidney disease, started on Primacor, history of renal insufficiency, acute kidney injury secondary to aggressive diuresis. RECOMMENDATIONS: Agree with Dr. Gasca to cut down the Lasix. Continue Eliquis. Continue Coreg 3.125 mg. Continue digoxin 0.125 mg daily. Continue Primacor. Initial plan was to discontinue Primacor yesterday, but it was continued, so we will continue one more day, cut down the Lasix. Continue allopurinol. We will follow up, possible discharge home in the morning. Discussed with the patient. We will follow with you. We will repeat the blood workup in the morning. Thank you, Dr. Santiago, for providing us the opportunity in taking care of the patient, Gareth Leblanc. Shayna Thomson MD
--- NOTE | 2018-06-04 14:01 | PN ---
Copied To: Sammy Santiago MD Attending MD: Sammy Santiago MD DATE: 06/04/2018 SUBJECTIVE: The patient is 37 years old, seen and examined. He states he feels better. No chest pain. No shortness of breath. Leg swelling has significantly improved. PHYSICAL EXAMINATION: VITAL SIGNS: He is afebrile, pulse 84, respirations 18, blood pressure 110/62. LUNGS: Bilateral good airflow. No rhonchi or crackle. HEART: S1 and S2 audible. ABDOMEN: Soft. Nontender. No rebound. No guarding. He has no hepatosplenomegaly. NEUROLOGICAL: The patient is awake, alert, oriented, communicative. LABORATORY EXAM: WBC 10.7, hemoglobin 15, hematocrit 45, platelet 308. Chemistry: Sodium 134, potassium 3.7, chloride 89, CO2 of 31, BUN 59, creatinine 1.8, blood sugar of 128. ASSESSMENT: 1. Nonischemic cardiomyopathy. 2. Morbid obesity. 3. Chronic kidney disease. 4. Nephrolithiasis, status post stent placement. 5. Intermittent pancreatitis. PLAN: Currently, the patient is on spironolactone. Dose has been increased. He is on verapamil. He is on carvedilol and digoxin. We will continue the patient on milrinone drip as per ID recommendation. Zaroxolyn has been on hold. His Lasix has been decreased to 40 twice a day as per Nephrology. We will follow up electrolyte in the a.m. Sammy Santiago MD
[2018-06-04] MEDS: Digoxin 125 mcg (0.125 mg) Tab PO SCH (14:16)
--- NOTE | 2018-06-04 19:27 | CP.PCM.PN ---
Subjective - Date & Time of Evaluation Date of Evaluation: 06/04/18 Time of Evaluation: 12:00 - Subjective Subjective: 37 yo M w/ pmh of non-ischemic cardiomyopathy, CKD II/III, chronic pancreatitis s/p celiac block, recurrent diverticulitis, morbid obesity and nephrolithiasis w / in-dwelling L ureteral stent, admitted with acute decompensated CHF; Patient urinating less on decreased dose of IV lasix; dyspnea improved but still reporting decreased O2 sat off nasal cannula; Objective - Vital Signs/Intake and Output Vital Signs (last 24 hours): Temp Pulse Resp BP Pulse Ox 97.9 F 82 16 126/82 95 06/04/18 12:00 06/04/18 18:00 06/04/18 12:00 06/04/18 17:56 06/04/18 06:00 Intake and Output: 06/04/18 06/05/18 18:59 06:59 Intake Total 587 Output Total 1050 Balance -463 - Medications Medications: Current Medications Allopurinol (Zyloprim) 100 mg PO DAILY [facility] Last Admin: 06/04/18 09:30 Dose: 100 mg Amylase (Pancrease 44620 U-5000 U-[id number] U) 15,000 unit PO AC [facility] Last Admin: 06/04/18 16:36 Dose: 15,000 unit Apixaban (Eliquis) 5 mg PO BID [facility] PRN Reason: Protocol Last Admin: 06/04/18 17:56 Dose: 5 mg Carvedilol (Coreg) 3.125 mg PO BID [facility] Last Admin: 06/04/18 17:56 Dose: 3.125 mg Digoxin (Digoxin) 0.125 mg PO 1400 [facility] Last Admin: 06/04/18 14:16 Dose: 0.125 mg Famotidine (Pepcid) 20 mg PO DAILY [facility] Last Admin: 06/04/18 09:30 Dose: 20 mg Furosemide (Lasix) 40 mg IVP BID [facility] Last Admin: 06/04/18 17:56 Dose: 40 mg Milrinone Lactate/Dextrose (Primacor 20mg/100ml D5w) 100 mls @ 12.301 mls/hr IV .Q8H8M PRN; Protocol; 0.2 MCG/KG/MIN PRN Reason: TITRATE PER MD ORDER Stop: 06/05/18 07:00 Last Admin: 06/04/18 17:58 Dose: 0.2 mcg/kg/min, 12.301 mls/hr Levalbuterol HCl (Xopenex) 0.63 mg IH TIDRESP [facility] Last Admin: 06/04/18 13:26 Dose: 0.63 mg Metolazone (Zaroxolyn) 2.5 mg PO DAILY [facility] Morphine Sulfate (Morphine) 4 mg IVP Q4H PRN PRN Reason: Pain, moderate (4-7) Last Admin: 06/04/18 18:30 Dose: 4 mg Ondansetron HCl (Zofran Inj) 4 mg IVP Q6H PRN PRN Reason: Nausea/Vomiting Potassium Citrate (Urocit-K Er Tab) 10 meq PO BID [facility] Last Admin: 06/04/18 18:02 Dose: 10 meq Spironolactone (Aldactone) 50 mg PO BID [facility] Last Admin: 06/04/18 17:55 Dose: 50 mg Verapamil HCl (Calan Sr Tab) 120 mg PO DAILY [facility] Last Admin: 06/04/18 09:28 Dose: 120 mg - Labs Labs: 06/04/18 06:20 06/04/18 06:20 PT 12.9 SECONDS (9.4-12.5) H 05/31/18 10:15 INR 1.12 05/31/18 10:15 APTT 33.5 Seconds (25.1-36.5) 05/31/18 10:15 - Constitutional Appears: Non-toxic, No Acute Distress - Eye Exam Eye Exam: Normal appearance - Respiratory Exam Respiratory Exam: Clear to Ausculation Bilateral. absent: Respiratory Distress - Cardiovascular Exam Cardiovascular Exam: RRR, +S1, +S2. absent: JVD - GI/Abdominal Exam GI & Abdominal Exam: Soft. absent: Distended, Tenderness - Extremities Exam Additional comments: minimal leg edema; - Neurological Exam Neurological Exam: Alert, Awake - Psychiatric Exam Psychiatric exam: Normal Affect, Normal Mood. absent: Agitated - Skin Skin Exam: Warm. absent: Cyanosis Assessment and Plan (1) CHF exacerbation Assessment & Plan: Acute decompensated systolic CHF; improved signs/symptoms; still on milrinone drip; mild worsening of renal function and increasing metabolic alkalosis; -decreasing IV lasix to 40 mg bid (was on 80 mg PO at home); -increasing aldactone to 50 mg bid; should help prevent further alkalosis and maintain serum potassium level; -titrate B-blockers upward per cardio recs; -continue 1500 cc PO fluid restriction; hyponatremia improved; Status: Acute (2) CKD (chronic kidney disease) Assessment & Plan: Cardiorenal etiology; continue to optimize CHF meds; Status: Chronic (3) Nephrolithiasis Assessment & Plan: Uric acid stone with marked hyperuricemia; started on potassium citrate and allopurinol; continue; Status: Chronic (4) Hyperuricemia Status: Acute (5) Electrolyte imbalance Status: Acute - Assessment and Plan (Free Text) Assessment: Thank you for allowing us to participate in the care of Mr. Leblanc; Drs. Don/ Rachana will resume care tomorrow.
[2018-06-05 00:20] VITALS: RESP 20
[2018-06-05] MEDS: Milrinone 20mg/100ml D5W 100 ML IV PRN (01:50)
[2018-06-05] MEDS: Morphine 4 mg/ml ISec IVP PRN ×4 (02:20→14:13)
[2018-06-05 06:37] VITALS: O2SAT 95
[2018-06-05 06:53] LABS: BASO # 0.01 K/mm3 (0.0-2.0); BASO % 0.1 % (0.0-3.0); EOS # 0.1 (0.0-0.7); EOS % 0.7 % (1.5-5.0); GRAN # 6.58 (1.4-6.5); GRAN % 60.4 % (50.0-68.0); HEMOGLOBIN 15.7 g/dL (14.0-18.0); LYMPH # 3.1 (1.2-3.4); LYMPH % 28.1 % (22.0-35.0); MEAN CELL VOLUME 91.4 fl (80.0-105.0); MEAN CORPUSCULAR HEMOGLOBIN 31.3 pg (25.0-35.0); MEAN CORPUSCULAR HGB CONC 34.2 g/dl (31.0-37.0); MEAN PLATELET VOLUME 9.9 fl (7.0-11.0); MONO # 1.2 (0.1-0.6); MONO % 10.7 % (1.0-6.0); RBC 5.02 10^6/uL (3.5-6.1); RED CELL DISTRIBUTION WIDTH 14.1 % (11.5-14.5); WHITE BLOOD COUNT 10.9 10^3/ul (4.5-11.0)
[2018-06-05 07:24] LABS: CALCIUM 9.7 mg/dL (8.4-10.5)
[2018-06-05] MEDS: Levalbuterol 0.63 MG/3 ML Inhal Soln UD IH SCH ×2 (07:24→13:27)
[2018-06-05] MEDS: Amylase/Lipase/Protease 5,000 Units ECC PO SCH ×3 (08:00→12:37)
--- NOTE | 2018-06-05 09:04 | PN ---
Copied To: Sammy Santiago MD Attending MD: Sammy Santiago MD DATE: 06/03/2018 SUBJECTIVE: The patient is 37 years old, seen and examined, sitting in chair. He stated his shortness of breath is little better. Leg swelling has improved. Complained of having back pain. PHYSICAL EXAMINATION VITAL SIGNS: He is afebrile, pulse 89, respirations 19, and blood pressure 148/91. LUNGS: Bilateral fair airflow. No rhonchi or crackle. HEART: S1 and S2 audible. ABDOMEN: Soft, nontender. No rebound. No guarding. NEUROLOGIC: He is awake, alert, oriented, and communicative. LABORATORY EXAM: Sodium 130, potassium 3.5, chloride 87, CO2 of 27. BUN 52, creatinine 1.6. Blood sugar of 140. ASSESSMENT: 1. Congestive heart failure exacerbation. 2. Nonischemic cardiomyopathy. 3. Recurrent pancreatitis, but stable now. 4. Renal insufficiency. 5. History of gastritis. 6. History of status post celiac block for his recurrent pancreatitis. PLAN: We will start him on Calan SR 120 daily. Continue him on Aldactone. He is on carvedilol, digoxin. He is on Eliquis for intermittent AFib. His Lasix has been decreased 80 every 12 hours. We will start him on nebulizer treatment. Because of his hyperuricemia, he has been started on allopurinol Sammy Santiago MD
--- NOTE | 2018-06-05 09:30 | PN ---
Copied To: Shayna Thomson MD Attending MD: Shayna Thomson MD DATE: 06/05/2018 REASON FOR THE CONSULTATION AND FOLLOWUP: Shortness of breath; decompensated congestive heart failure, acute on chronic secondary to systolic dysfunction. SUBJECTIVE: The patient denies any chest pain, shortness of breath or any palpitation. Feels better since came in. OBJECTIVE: GENERAL: Not in any apparent distress, lying flat on the bed. Off Primacor at 07:00 a.m. VITAL SIGNS: Temperature afebrile, heart rate 75, blood pressure 140/71. HEENT: PERRLA. Extraocular muscles intact. NECK: Supple. No carotid bruit. No thyromegaly. CHEST: Clear to auscultation. HEART: S1, S2 regular. ABDOMEN: Soft. EXTREMITIES: Clubbing and cyanosis negative. LABORATORY DATA: Blood workup as follows: WBC 10.9, hemoglobin 15, hematocrit 45.9, platelet count 310. Chemistry shows sodium 130, potassium 3.9, chloride 90, carbon dioxide 28, anion gap of 18, BUN 65, creatinine 1.7, phosphorus 5, magnesium 2.6. IMPRESSION: This is a 37-year-old male with past medical history significant for nonischemic cardiomyopathy, status post cardiac catheterization four to five years ago, morbid obesity, body mass index 56 KG/m2, body weight 450 pounds. Admitted with acute decompensated congestive heart failure, acute on chronic secondary to systolic dysfunction. Started on IV Primacor, IV Lasix. The patient responded well, lost more than 10 pounds. Lying flat on the bed. History of chronic atrial fibrillation, on Eliquis. RECOMMENDATIONS: Continue Eliquis. Continue verapamil. Change Lasix to p.o. Possible discharge home. Possible discharge planning. Thank you, Dr. Santiago, for providing us the opportunity in taking care of the patient, Gareth Leblanc. Shayna Thomson MD cc: Sammy Santiago MD [facility]
[2018-06-05] MEDS: Verapamil 120 mg ER Tab PO SCH (10:13)
[2018-06-05 11:48] VITALS: PULSE 80; TEMP 97.7
[2018-06-05] MEDS: Digoxin 125 mcg (0.125 mg) Tab PO SCH (14:14)
[2018-06-05 14:19] VITALS: PULSE 74
[2018-06-05 14:34] VITALS: BP 123/96
--- NOTE | 2018-06-05 17:35 | PN ---
Copied To: Sean Reich MD Attending MD: Sean Reich MD DATE: 06/05/2018 SUBJECTIVE: The patient states that he will be discharged home later this evening. He has been switched over to oral diuretic therapy. His CHF is controlled. His prerenal azotemia is stable. MEDICATIONS: Medication list reviewed. The patient is on Aldactone, Calan, Coreg, digoxin, Eliquis, oral Lasix, p.r.n. morphine, Pancrease, Pepcid, Urocit-K, Xopenex, Zaroxolyn is on hold, Zofran p.r.n. and Zyloprim. OBJECTIVE: INPUT/OUTPUT: Input 1833/output is 2150. The patient's weight is down 20 pounds from admission. Down to 445 pounds. VITAL SIGNS: Blood pressure 123/90, temperature 97.7, heart rate is 80 with respiratory rate of 20. HEENT: Shows him to be normocephalic, atraumatic. Conjunctivae are pink. Sclerae nonicteric. NECK: Supple. No neck vein distention. Chest: Clear to auscultation and percussion with decreased breath sounds at the bases. Scattered rhonchi. No rales. CARDIOVASCULAR: Shows an irregular rate and rhythm with MR/TR. No S3, no S4, no rub. ABDOMEN: Soft. Obese. Nontender. No rebound or guarding. EXTREMITIES: Show trace to 1+ pitting edema of his lower extremities. No cyanosis or clubbing. LABORATORY DATA AND IMAGING: Labs today, white blood cell count 10.9, hemoglobin 15.7 and platelet count of 310,000. Chemistry showed normal electrolytes. BUN is up from 42 to 65. Baseline BUN is in the 30s. Creatinine is up from 1.5 to 1.7, but stable at 1.7. Baseline creatinine is in the 1.3 range. Glucose is 125. Calcium is 9.7. Phosphorus is improved at 5. Magnesium is 2.6. PTH is mildly elevated at 90. Thyroid function tests are normal. Urines are unremarkable. Microbiology: No cultures were sent. ASSESSMENT: 1. Acute renal failure superimposed on chronic kidney disease stage 3 in the setting of decompensated congestive heart failure. The patient was volume overloaded was diuresed approximately 20 pounds during hospitalization. 2. History of morbid obesity. Weight is down 20 pounds with the patient weighs in excess of 400 pounds. 3. Hypertensive heart disease with cardiomyopathy. Ejection fraction on Primacor in the past was 33%. Positive mitral regurgitation. Positive tricuspid irritation. Positive atrial fibrillation. 4. Past history of left hydronephrosis, status post left ureteral stent. 5. Agree with switch over from IV diuretic therapy to oral diuretic therapy. Primacor drip was stopped. The patient appears to be as compensated as he can be. He will be discharged home later today. The patient to be mindful of sodium and volume intake. 6. The patient to follow up with Cardiology in the outpatient setting. Renal followup in the outpatient setting on a p.r.n. basis only. Sean Reich MD
--- NOTE | 2018-06-06 06:07 | DS ---
Copied To: Sammy Santiago MD Attending MD: Sammy Santiago MD HISTORY OF PRESENT ILLNESS: The patient is 37 years old who came in with shortness of breath, bilateral leg swelling. The patient was on Primacor drip for three days, was diuresed, doing well. Shortness of breath is better and leg swelling has improved. PHYSICAL EXAMINATION VITAL SIGNS: He is afebrile, pulse 86, respirations 20, blood pressure 127/90. LUNGS: Bilateral fair airflow. No rhonchi or crackle. HEART: S1 and S2 audible. ABDOMEN: Soft, obese, nontender. No rebound. No guarding. NEUROLOGICALLY: The patient is awake, alert, oriented, communicative. LABORATORY DATA: WBC is 10.9, hemoglobin 15.7, hematocrit 45.9, platelet 310. Chemistry: Sodium 132, potassium 3.9, chloride 90, CO2 of 28, BUN 65, creatinine 1.5, blood sugar of 125. ASSESSMENT: 1. Nonischemic cardiomyopathy. 2. Morbid obesity. 3. Hyperuricemia. 4. Hypertension. 5. Chronic kidney disease. 6. Nephrolithiasis. 7. Recurrent pancreatitis. PLAN: The patient is being discharged home on Lasix 80 mg twice a day, spironolactone 25 twice a day and we will add verapamil 120 daily, carvedilol 3.125 twice a day and digoxin 0.125 daily. He will be maintained on Eliquis. We will follow up the patient in the office for his kidney functions. Sammy Santiago MD
== END 2018-06-05 17:27 | disposition home or self-care (01) | DRG 291 ==
LOC: ED 09:16 → ERH 11:32 → 2RNO 12:10 → OBSVTOIN 06-01 11:17
PROVIDERS: ADMIT Internal Medicine; ATTEND Internal Medicine
DX: I13.0 Hypertensive heart and chronic kidney disease with heart failure and stage 1 through stage 4 chronic kidney disease, or unspecified chronic kidney disease (principal); I50.23 Acute on chronic systolic (congestive) heart failure; N17.9 Acute kidney failure, unspecified; Z68.43 Body mass index [BMI] 50.0-59.9, adult; F11.20 Opioid dependence, uncomplicated; K86.0 Alcohol-induced chronic pancreatitis; E87.1 Hypo-osmolality and hyponatremia; E87.3 Alkalosis; F17.200 Nicotine dependence, unspecified, uncomplicated; I42.9 Cardiomyopathy, unspecified; N18.3 Chronic kidney disease, stage 3 (moderate); E66.01 Morbid (severe) obesity due to excess calories; E78.5 Hyperlipidemia, unspecified; E11.22 Type 2 diabetes mellitus with diabetic chronic kidney disease; E11.51 Type 2 diabetes mellitus with diabetic peripheral angiopathy without gangrene; I25.10 Atherosclerotic heart disease of native coronary artery without angina pectoris; I48.2 Chronic atrial fibrillation; K21.9 Gastro-esophageal reflux disease without esophagitis; G47.30 Sleep apnea, unspecified; G89.29 Other chronic pain; I08.1 Rheumatic disorders of both mitral and tricuspid valves; N20.0 Calculus of kidney; I27.20 Pulmonary hypertension, unspecified; E79.0 Hyperuricemia without signs of inflammatory arthritis and tophaceous disease; E87.6 Hypokalemia; Z79.02 Long term (current) use of antithrombotics/antiplatelets

== ENCOUNTER 2018-07-22 14:33 | Inpatient (IN) | payer BC ==
--- NOTE | 2018-07-22 14:56 | ED PDOC ---
Arrival/HPI - General Chief Complaint: Chest Pain Time Seen by Provider: 07/22/18 14:35 Historian: Patient - History of Present Illness Narrative History of Present Illness (Text): 07/22/18 14:50 A 37 year old male, whose past medical history includes CHF on Digoxin, non- ischemic cardiomyopathy, A-Fib on Eliquis, chronic pancreatitis, kidney/renal stones, hypertension, and PVD, presents to the emergency department complaining of worsening chest pain and shortness of breath for the past few days. Patient reports also experiencing ongoing flank pain. Patient denies any other complaints at this time. PMD: Dr. Santiago Past Medical History - Provider Review Nursing Documentation Reviewed: Yes - Past History Past History: Non-Contributing - Infectious Disease Hx of Infectious Diseases: None - Tetanus Immunization Tetanus Immunization: Unknown - Cardiac Hx Cardiac Disorders: Yes (cardiomyopathy) Hx Cardiac Arrhythmia: Yes Hx Congestive Heart Failure: Yes Hx Hypertension: Yes Hx Pacemaker: No Hx Peripheral Edema: Yes (ble +3 pitting) Hx Peripheral Vascular Disease: Yes - Pulmonary Hx Respiratory Disorders: Yes Hx Sleep Apnea: (pt denies sleep apnea) Other/Comment: trouble sleeping due to sob - Neurological Hx Neurological Disorder: No - HEENT Hx HEENT Disorder: No - Renal Hx Renal Disorder: Yes (hydronephrosis, L ureteral pigtail stent) Hx Kidney Stones: Yes Hx Pyelonephritis: Yes Hx Renal Failure: Yes Other/Comment: left calculus 11/2017 - Endocrine/Metabolic Hx Endocrine Disorders: No - Hematological/Oncological Hx Blood Disorders: No - Integumentary Hx Dermatological Disorder: Yes (foul smelling body odor) Other/Comment: pt refusing to have skin touched but did notice some dry skin to feet - Musculoskeletal/Rheumatological Hx Falls: No - Gastrointestinal Hx Gastrointestinal Disorders: Yes (morbidly obese, abd pain) Hx Diverticulitis: Yes Hx Gall Bladder Disease: Yes Hx Gastroesophageal Reflux: Yes Hx Pancreatitis: Yes (quit drinking since pancreatitis) - Genitourinary/Gynecological Hx Genitourinary Disorders: Yes (urinary retention, dysuria) Hx Hematuria: Yes Hx Urinary Tract Infection: Yes Other/Comment: pylonephritis - Psychiatric Hx Psychophysiologic Disorder: No Hx Emotional Abuse: No Hx Physical Abuse: No Hx Substance Use: No Other/Comment: etoh in the past none since pancreatitis - Past Surgical History Past Surgical History: No Previous - Surgical History Hx Cholecystectomy: Yes Other/Comment: left ureteral pigtail stent and replacement, cysto - Anesthesia Hx Anesthesia: Yes Hx Anesthesia Reactions: Yes (NAUSEA) Hx Malignant Hyperthermia: No - Suicidal Assessment Feels Threatened In Home Enviroment: No Family/Social History - Physician Review Nursing Documentation Reviewed: Yes Family/Social History: No Known Family HX Smoking Status: Heavy Smoker > 10 Cigarettes Daily Hx Alcohol Use: Yes (none since dx w/pancreatitis) Hx Substance Use: No Hx Substance Use Treatment: No Allergies/Home Meds Allergies/Adverse Reactions: Allergies LUZ Inhibitors Allergy (Severe, Verified 07/22/18 14:37) ANGIOEDEMA Home Medications: Home Meds Medication Instructions Recorded Confirmed RX: Famotidine [Pepcid] 20 mg PO DAILY 08/06/17 07/22/18 RX: Amylase/Lipase/Protease 3 tab PO AC 12/13/17 07/22/18 [Pancrease [id number] [id number] [id number] U] RX: Apixaban [Eliquis] 2.5 mg PO BID 06/05/18 07/22/18 Review of Systems - Physician Review All systems were reviewed & negative as marked: Yes - Review of Systems Constitutional: absent: Fevers, Night Sweats Respiratory: SOB Cardiovascular: Chest Pain Gastrointestinal: absent: Abdominal Pain, Diarrhea, Nausea, Vomiting Musculoskeletal: Other (flank pain) Neurological: absent: Headache, Dizziness Physical Exam Vital Signs Reviewed: Yes Vital Signs Temp Pulse Resp BP Pulse Ox 07/22/18 14:34 98.2 F 88 18 161/102 H 92 L Temperature: Afebrile Blood Pressure: Hypertensive Pulse: Regular Respiratory Rate: Normal Appearance: Positive for: Well-Appearing, Non-Toxic, Comfortable Pain Distress: None Mental Status: Positive for: Alert and Oriented X 3 - Systems Exam Head: Present: Atraumatic, Normocephalic Mouth: Present: Moist Mucous Membranes Neck: Present: Normal Range of Motion Respiratory/Chest: Present: Rales (bilaterally) Cardiovascular: Present: Regular Rate and Rhythm, Normal S1, S2. No: Murmurs Abdomen: Present: Distention. No: Tenderness Back: Present: Normal Inspection Upper Extremity: Present: Normal Inspection. No: Cyanosis, Edema Lower Extremity: Present: Normal Inspection. No: Edema Neurological: Present: GCS=15, CN II-XII Intact, Speech Normal Skin: Present: Warm, Dry, Normal Color. No: Rashes Psychiatric: Present: Alert, Oriented x 3, Normal Insight, Normal Concentration Medical Decision Making ED Course and Treatment: 07/22/18 14:53 Impression: 37 year old male with worsening chest pain and shortness of breath. Physical exam shows bilateral rales; abdomen is distended by non-tender; no other acute findings on examination. suspectchf Plan: -- EKG -- Chest X-Ray -- Abd/Pelvis CT -- Labs -- Urinalysis -- Reassess and disposition Prior Visits: Notes and results from previous visits were reviewed. Patient was last seen here in the emergency department on 05/31/2018 for chronic sharp pain at mid-back, chest pain, and leg edema. Patient was admitted for CHF. Progress Notes: EKG: Ordered, reviewed and independently interpreted the EKG. Rate: 95 BPM Rhythm: Atrial Fibrillation. Interpretation: No ST segment elevations or depressions, no T-wave inversions, normal intervals. 07/22/2018 15:36 Abd/Pelvis CT IMPRESSION: No significant or acute findings to account for/related to the clinical presentation. Satisfactory position of double-J stent catheter on the left. No significant interval change compared to prior examination(s). Dictator: Adelfo Kasper MD 07/22/18 15:56 Patient refuses to be given Aspirin. will tx with non narcotics 07/22/2018 16:18 Chest X-Ray IMPRESSION: Cardiomegaly/CHF similar findings identified previously. Dictator: Adelfo Kasper MD 07/22/18 16:59 lasix dosed. seen by dr spears bedside covering [facility]. accepted. 2 07/13/2018 OXYCODONE HCL 15 MG TABLET 120.0 30 JA DEG [id number] [facility] (4819) 0 90.0 [facility] [place] 06/15/2018 2 06/15/2018 OXYCODONE HCL 15 MG TABLET 120.0 30 JA DEG 28761 [facility] (4819) 0 90.0 [facility] [place] 05/18/2018 2 05/18/2018 OXYCODONE HCL 15 MG TABLET 120.0 30 JA DEG 18513 [facility] (4819) 0 90.0 MME Comm Ins [place] 04/20/2018 2 04/20/2018 OXYCODONE HCL 15 MG TABLET 120.0 30 JA DEG 11745 [facility] (4819) 0 90.0 [place] 03/22/2018 2 03/22/2018 OXYCODONE HCL 15 MG TABLET 120.0 30 TA ASI 85162 [facility] (4819) 0 90.0 [place] 02/23/2018 2 02/23/2018 OXYCODONE HCL 15 MG TABLET 120.0 30 JA DEG 22718 [facility] (4819) 0 90.0 [place] 12/29/2017 2 12/29/2017 OXYCODONE HCL 15 MG TABLET 120.0 30 TA ASI 74006 [facility] (4819) 0 90.0 [place] 12/01/2017 2 12/01/2017 OXYCODONE HCL 15 MG TABLET 120.0 30 JA DEG 83586 [facility] (4819) 0 90.0 [place] 11/24/2017 2 11/24/2017 HYDROMORPHONE 2 MG TABLET 20.0 7 MA PER 136684 [facility] P (5168) 0 22.86 [facility] [place] 11/03/2017 2 11/03/2017 OXYCODONE HCL 15 MG TABLET 120.0 30 TA ASI 75558 [facility] (4819) 0 90.0 [place] [place] 10/03/2017 2 09/29/2017 OXYCODONE HCL 15 MG TABLET 120.0 30 TA ASI 18119 [facility] (4819) 0 90.0 [facility] [place] 09/05/2017 1 09/01/2017 OXYCODONE HCL 15 MG TABLET 120.0 30 JA DEG 222198 [facility] P (5168) 0 90.0 [facility] [place] 08/07/2017 1 07/31/2017 OXYCODONE HCL 15 MG TABLET 120.0 30 JA DEG [id number] [facility] P (5168) 0 90.0 [facility] [place] - Lab Interpretations I have reviewed the lab results: Yes - RAD Interpretation Radiology Orders: 07/22/18 14:51 CHEST PORTABLE [RAD] Stat - Scribe Statement The provider has reviewed the documentation as recorded by the Scribe Mary Dhillon Provider Scribe Attestation: All medical record entries made by the Scribe were at my direction and personally dictated by me. I have reviewed the chart and agree that the record accurately reflects my personal performance of the history, physical exam, medical decision making, and the department course for this patient. I have also personally directed, reviewed, and agree with the discharge instructions and disposition. Disposition/Present on Arrival - Present on Arrival Any Indicators Present on Arrival: No History of DVT/PE: No History of Uncontrolled Diabetes: No Urinary Catheter: No History of Decub. Ulcer: No History Surgical Site Infection Following: None - Disposition Have Diagnosis and Disposition been Completed?: Yes Diagnosis: CHF (congestive heart failure), Abdominal pain Disposition: HOSPITALIZED Disposition Time: 04:30 Condition: STABLE
[2018-07-22 15:02] LABS: BASO # 0.01 K/mm3 (0.0-2.0); BASO % 0.1 % (0.0-3.0); EOS # 0.1 (0.0-0.7); EOS % 0.5 % (1.5-5.0); GRAN # 9.67 (1.4-6.5); GRAN % 72.5 % (50.0-68.0); HEMOGLOBIN 15.4 g/dL (14.0-18.0); LYMPH # 2.2 (1.2-3.4); LYMPH % 16.8 % (22.0-35.0); MEAN CELL VOLUME 93.3 fl (80.0-105.0); MEAN CORPUSCULAR HEMOGLOBIN 31.4 pg (25.0-35.0); MEAN CORPUSCULAR HGB CONC 33.7 g/dl (31.0-37.0); MEAN PLATELET VOLUME 9.6 fl (7.0-11.0); MONO # 1.3 (0.1-0.6); MONO % 10.1 % (1.0-6.0); RBC 4.9 10^6/uL (3.5-6.1); RED CELL DISTRIBUTION WIDTH 14.9 % (11.5-14.5); WHITE BLOOD COUNT 13.3 10^3/ul (4.5-11.0)
[2018-07-22 15:11] LABS: INR 1.18; PROTHROMBIN TIME 13.5 SECONDS (9.4-12.5)
[2018-07-22 15:12] LABS: PARTIAL THROMBOPLASTIN TIME 36.6 Seconds (25.1-36.5)
[2018-07-22 15:17] LABS: ALBUMIN 4.4 g/dL (3.0-4.8); CALCIUM 9.9 mg/dL (8.4-10.5)
[2018-07-22 15:28] LABS: TROPONIN I 0.04 ng/mL
--- NOTE | 2018-07-22 15:40 | CT ---
Date of service: 07/22/2018 PROCEDURE: CT Abdomen and Pelvis without intravenous contrast HISTORY: flank pain h/of renal stones Replacement of left ureteral stent catheter 05/14/2018. COMPARISON: 05/11/2018. TECHNIQUE: Unenhanced. Neither IV nor oral contrast administered Radiation dose: Total exam DLP = 1234.95 mGy-cm. This CT exam was performed using one or more of the following dose reduction techniques: Automated exposure control, adjustment of the mA and/or kV according to patient size, and/or use of iterative reconstruction technique. FINDINGS: LOWER THORAX: Unremarkable. LIVER: Hepatic steatosis. No focal masses. No intrahepatic bile duct dilatation or perihepatic ascites. GALLBLADDER AND BILE DUCTS: Status post cholecystectomy. No abnormality is seen in the gallbladder fossa. PANCREAS: Unremarkable. No gross lesion or ductal dilatation. SPLEEN: Unremarkable. ADRENALS: Unremarkable. No mass. KIDNEYS AND URETERS: Right kidney and ureter: Unremarkable. No hydronephrosis. No solid mass. Left kidney and ureter double-J stent catheter in satisfactory position. No obstructing upper tract calculi. No appreciable edema left kidney. VASCULATURE: Unremarkable. No aortic aneurysm. No atherosclerotic calcification or mural plaque present. BOWEL: Unremarkable. No obstruction. No gross mural thickening. APPENDIX: Unremarkable. Normal appendix. PERITONEUM: Unremarkable. No free fluid. No free air. LYMPH NODES: Unremarkable. No enlarged lymph nodes. BLADDER: Unremarkable. REPRODUCTIVE: Unremarkable. BONES: No acute fracture. Degenerative changes limited to L5-S1. Unchanged compared to the prior study. OTHER FINDINGS: None. IMPRESSION: No significant or acute findings to account for/ related to the clinical presentation. Satisfactory position of double-J stent catheter on the left. Additional benign and/or incidental findings described above. No significant interval change compared to the prior examination(s).
[2018-07-22] MEDS ORDERED: Morphine 2 mg/ml ISec IVP PRN (15:53)
--- NOTE | 2018-07-22 16:22 | RAD ---
Date of service: 07/22/2018 HISTORY: sob COMPARISON: 05/31/2018 FINDINGS: LUNGS: Pulmonary vascular congestion similar to that identified previously. No discrete pulmonary infiltrates. PLEURA: No significant pleural effusion identified, no pneumothorax apparent. CARDIOVASCULAR: No atherosclerotic calcification present Normal. OSSEOUS STRUCTURES: No significant abnormalities. VISUALIZED UPPER ABDOMEN: Normal. OTHER FINDINGS: None. IMPRESSION: Cardiomegaly/CHF similar findings identified previously.
[2018-07-22 16:46] LABS: URINE BILIRUBIN NEGATIVE (NEGATIVE); URINE BLOOD MODERATE (NEGATIVE); URINE GLUCOSE (UA) NEGATIVE (NEGATIVE); URINE LEUKOCYTE ESTERASE TRACE Leu/uL (NEGATIVE); URINE PROTEIN NEGATIVE mg/dL (<30 mg/dL); URINE UROBILINOGEN 0.2 E.U./dL (<1 E.U./dL)
[2018-07-22 16:50] LABS: URINE APPEARANCE CLEAR (CLEAR); URINE COLOR YELLOW (YELLOW)
--- NOTE | 2018-07-22 16:53 | HP ---
ADMISSION NOTE HISTORY OF PRESENT ILLNESS: Mr. Leblanc is a 37-year-old male, admitted to the hospital with increased shortness of breath. He has nonischemic cardiomyopathy with low ejection fraction. Complaining of shortness of breath, increased for the past few hours. He also has renal stones, chronic abdominal pain, history of pancreatitis in the past. Complaining of chest pain also. Dr. Thomson follows him from Cardiology. No nausea. No vomiting. No fever. No cough with expectoration. PAST MEDICAL HISTORY: Cardiomyopathy, nonischemic; CHF. History of chronic anemia; chronic edema, bilateral; sleep apnea. Renal calculus, left sided, status post ureteral stent placement. GE reflux. History of diverticulitis. PAST SURGICAL HISTORY: Left ureteral stent placement, cholecystectomy. FAMILY HISTORY: Noncontributory. PERSONAL HISTORY: Heavy smoker, more than 10 cigarettes a day. ALLERGIES: LUZ INHIBITOR CAUSES ANGIOEDEMA. HOME MEDICATIONS: List reviewed. Eliquis, Pepcid, pancreatic enzymes, Coreg, digoxin, Pepcid, Lasix, potassium and verapamil 120 mg daily. PHYSICAL EXAMINATION: GENERAL: Morbidly obese, mild distress due to shortness of breath and chest pain. VITAL SIGNS: Temperature 98.2, heart rate 88 per minute, respiratory rate 18 per minute, blood pressure 160/102, pulse ox is 92% on oxygen by nasal cannula. HEENT: Mucosa moist. NECK: No lymphadenopathy. CHEST: Air entry present and equal, bilateral. No added sounds. CARDIOVASCULAR: S1, S2 normal. No murmur. No gallop. ABDOMEN: Soft, nontender. No hepatosplenomegaly. EXTREMITY: 1+ edema. Morbidly obese. EK beats per minute, atrial fibrillation. LABORATORY DATA: Sodium 137, potassium 4.8, creatinine 1.6, bilirubin 0.5. White count , hemoglobin 15.4, platelet 315. Digoxin level less than 4. ASSESSMENT: 1. Congestive heart failure exacerbation. 2. Morbid obesity. 3. Abdominal pain. 4. Cardiomyopathy. 5. Leukocytosis. PLAN: He will be admitted to the hospital tele monitoring. Cardiology consultation, Dr. Thomson requested. CAT scan of the abdomen and pelvis: No acute changes. Left ureteric stent in place. We will continue anticoagulation with Eliquis 2.5 mg p.o. b.i.d., aspirin 325 mg stat given in the ER. Digoxin 0.125 mg daily, Pepcid 20 mg daily, Lasix 80 mg every 12 hours. For pain management, morphine 2 mg every 3 hours p.r.n. for pain, Aldactone 25 mg p.o. b.i.d., verapamil 120 mg p.o. daily. Urine culture will be sent for leukocytosis. Rule out urinary tract infection. Discussed with the ED attending, . Discussed with the patient. Talita Spears MD
[2018-07-22 17:02] LABS: URINE AMORPHOUS SEDIMENT FEW; URINE BACTERIA MOD (NEG); URINE EPITHELIAL CELLS 0 - 2 /hpf (0-5); URINE RBC 20 - 25 /hpf (0-2)
[2018-07-22 17:36] VITALS: BMI 61.0
[2018-07-22] MEDS: HYDROmorphone 2 mg/ml ISec IVP PRN (20:05)
--- NOTE | 2018-07-22 22:46 | CARD ---
APPROVED REPORT Date of service: 07/22/2018 EKG Measurement Heart [id number] <Conclusion> Atrial fibrillation Nonspecific intraventricular block Nonspecific ST changes Abnormal ECG
[2018-07-23] MEDS: HYDROmorphone 2 mg/ml ISec IVP PRN ×6 (00:01→21:30)
[2018-07-23] MEDS: Verapamil 120 mg ER Tab PO SCH (10:14)
[2018-07-23] MEDS: Digoxin 125 mcg (0.125 mg) Tab PO SCH (14:45)
--- NOTE | 2018-07-23 16:55 | PN ---
DATE: 07/23/2018 SUBJECTIVE: Patient is 37 years old, came in because of intermittent chest pain, shortness of breath, leg swelling, . He was nauseous yesterday, but feeling better now. PHYSICAL EXAMINATION GENERAL: He is awake and alert, able to communicate. VITAL SIGNS: He is afebrile. Pulse 92, respirations 18, and blood pressure 130/90. LUNGS: Bilateral fair airflow. No rhonchi or crackles. HEART: S1 and S2, audible. ABDOMEN: Soft, very obese, nontender. No rebound, no guarding. NEUROLOGIC: Patient is awake and alert, communicative. EXTREMITIES: Bilateral leg, +1 edema. LABORATORY DATA: There is no new lab available today. ASSESSMENT: 1. Congestive heart failure, acute on chronic; systolic. 2. Mild renal insufficiency. 3. Cardiomyopathy. 4. Morbid obesity. 5. History of recurrent pancreatitis. 6. Status post cholecystectomy. 6. Peptic ulcer disease. PLAN: Currently, patient is on Verapamil, carvedilol, and digoxin. Continue him on Eliquis and Lasix. I will request for Dr. Don to evaluate patient also. We will follow up his electrolytes and CBC in the a.m. Continue diuresis, analgesic as needed. Out of bed to chair. Sammy Santiago MD
[2018-07-23] MEDS: metOLazone 2.5 MG TAB PO SCH (20:24)
--- NOTE | 2018-07-23 20:51 | CON ---
DATE: 07/23/2018 REASON FOR CONSULTATION: Chronic kidney disease stage III, shortness of breath, volume overload. HISTORY OF PRESENT ILLNESS: A 37-year-old young male with morbid obesity, severe hypertension, hypertensive heart disease, CHF, cardiomyopathy, recurrent kidney stones, hydronephrosis, chronic kidney disease stage II/III was admitted yesterday with complaints of increased shortness of breath, increased lower extremity edema, decreased urine output, cough, brownish phlegm. In the emergency room, he was found to be hypertensive. Initial blood pressure was 161/102, afebrile. He was found to have edema. He was found to have an elevated WBC count of 13. Elevated BNP of 1500, BUN 43, creatinine 1.6. This is pretty much his baseline. His chest x-ray showed cardiomegaly and CHF. He had a CT scan of his abdomen and pelvis which showed right kidney to be unremarkable, left kidney with a double-J stent with no hydronephrosis, hepatic steatosis. PAST MEDICAL AND SURGICAL HISTORY: Morbid obesity, severe hypertension, hypertensive heart disease, cardiomyopathy, CHF, chronic kidney disease stage II/III, recurrent pancreatitis, pain medication dependence, recurrent UTI, hydronephrosis, kidney stones. FAMILY HISTORY: Hypertension. SOCIAL HISTORY: Active smoker, no alcohol use, no IV drug abuse. ALLERGIES: LUZ INHIBITORS. MEDICATIONS: Medications at home, Lasix 80 two times daily, Pepcid 20, digoxin 0.125, Coreg 3.125 two times daily, Eliquis 2.5 two times daily, allopurinol 100, verapamil 120, Aldactone 25 two times daily. REVIEW OF SYSTEMS: All systems are reviewed, pertinent positives as mentioned in history of presenting illness, rest unremarkable. PHYSICAL EXAMINATION: GENERAL: Middle-aged male, lying in bed, in [id number] distress. VITAL SIGNS: Blood pressure 121/87, heart rate 86, respiratory rate 18, temperature 97.6. HEENT: Normocephalic, atraumatic. Positive pallor. No icterus. NECK: Supple, no JVD. LUNGS: Distant breath sounds. No rales appreciated. CARDIAC: S1, S2. Regular rate and rhythm. No murmur, no rub. ABDOMEN: Obese, distended, soft, nontender. Bowel sounds present. EXTREMITIES: 2+ pitting edema of the lower extremities. INTAKE AND OUTPUT: 1800/400. LABORATORY DATA: WBC 13, hemoglobin 15, hematocrit 45, platelets 315. Sodium 137, potassium 4.8, chloride 100, CO2 of 25, BUN 43, creatinine 1.6, glucose 136, calcium 9.9, phosphorus not checked, magnesium 2.3, AST 27, ALT 17, albumin 4.4. Urinalysis yellow, clear, pH 6, specific 1.015, protein negative, blood large, leukocyte esterase trace. Digoxin level less than 0.4. CURRENT MEDICATIONS: Aldactone 25 two times daily, Calan 120, Coreg 3.125 two times daily, digoxin 0.125 daily, Dilaudid, Eliquis 2.5 two times daily, Lasix 40 mg IV every 12 hours, Pepcid, Urocit-K 10 mEq two times daily, Zyloprim. ASSESSMENT AND PLAN 1. Decompensated congestive heart failure. 2. History of hypertensive heart disease, cardiomyopathy, congestive heart failure. 3. Stable chronic kidney disease, stage II/III. 4. Hypertension, controlled at this time. 5. Morbid obesity. 6. History of kidney stones, left hydronephrosis, left ureteral stent. PLAN: 1. Agree with IV Lasix 40 every 12 hours. 2. Add metolazone 2.5 two times daily. 3. Strict intake and output. 4. Monitor electrolytes. 5. Increased digoxin dose? 6. Keep O's greater than I's. Angelica Don MD
[2018-07-24] MEDS: HYDROmorphone 2 mg/ml ISec IVP PRN ×6 (01:30→21:50)
--- NOTE | 2018-07-24 05:13 | CON ---
DATE: 07/23/2018 REASON FOR CONSULTATION: Shortness of breath, cardiac evaluation, history of cardiomyopathy, history of atrial fibrillation. BRIEF CLINICAL HISTORY: This is a 37-year-old male with more than 465 pound, body mass index 60 kg/m2; history of nonischemic cardiomyopathy; chronic atrial fibrillation; diabetes; hypertension; hyperlipidemia; active smoker, now slowed down to half a pack; history of heavy alcohol abuse; quit smoking; history of multiple admissions with pancreatitis due to alcoholic abuse; history of chronic renal insufficiency with creatinine clearance baseline 45 mL, came in with a complaint of shortness of breath and difficulty in walking and mild leg swelling. PAST MEDICAL HISTORY: Significant for hypertension; morbid obesity; congestive heart failure secondary to alcohol abuse; alcoholic cardiomyopathy; nonischemic cardiomyopathy, status post cardiac catheterization 3 to [address] [facility]; history of recurrent pancreatitis secondary to alcohol abuse in the past; history of renal colic; history of stone in the kidney; history of chronic atrial fibrillation, on Eliquis; history of chronic renal insufficiency with baseline creatinine clearance around 40 mL. PREVIOUS CARDIAC WORKUP: As follows; the patient had a cardiac catheterization 3 to [address] [facility], was told normal coronaries. The patient had echo 07/05/2017 that showed ejection fraction of 40%, RV systolic pressure of 18, trace mitral regurgitation, trace tricuspid regurgitation, moderately dilated ventricle. He had a repeat echo on 04/25/2018 that shows four chamber dilatation, cardiomyopathy, ejection fraction 30% to 35%. At that time, the patient started on Primacor, moderate tricuspid regurgitation. Last MUGA scan, 08/04/2017 that showed ejection fraction of 55%, history of chronic atrial fibrillation, moderate mitral regurgitation, moderate tricuspid regurgitation. Last echo on 04/25/2018, RV systolic pressure 51. Baseline creatinine runs 1.8 to 1.9. CURRENT MEDICATIONS: The patient at home he is taking Pepcid 20 mg, digoxin 0.125, Coreg 3.125 mg, Eliquis 2.5 mg daily, allopurinol 100 mg daily, verapamil 120 mg daily, spironolactone 25 mg daily, furosemide 80 mg at 8 a.m. and 2 p.m. ALLERGIES: TO LUZ INHIBITORS, CAUSES ANGIOEDEMA. PHYSICAL EXAMINATION: VITAL SIGNS: As follows, height of the patient 6 feet, weight of the patient 465 pounds, weighed today in front of me by the nurse, body mass index 62 kg/m2. Rest of the vitals; temperature afebrile, heart rate 60, blood pressure 130/96. HEENT: PERRLA. Extraocular muscles are intact. NECK: Supple. No carotid bruits or thyromegaly. CHEST: Clear to auscultation. HEART: S1 and S2, regular. ABDOMEN: Soft. EXTREMITIES: Clubbing and cyanosis negative, 1+ pedal edema noted. LABORATORY DATA: Blood workup: WBC 13.3, hemoglobin 15.4, hematocrit 45.7, platelets 315. Chemistry shows sodium 130, potassium 4.8, chloride 100, carbon dioxide 25, anion gap of 17, BUN 43, creatinine 1.5. Troponin 0.04. BNP 1510. EKG shows atrial fibrillation, no acute ST-T changes noted. IMPRESSION: A 37-year-old morbidly obese male with body mass index of 62 kg/m2, more than 465 pound weight today, I was standing there at the bedside, admitted with shortness of breath; mild pedal edema; renal insufficiency; history of chronic atrial fibrillation and anticoagulation; nonischemic cardiomyopathy, status post cardiac catheterization four years ago; nonobstructive coronary artery disease; mitral regurgitation, tricuspid regurgitation, mild pulmonary hypertension. RECOMMENDATION: Continue diuretics. Continue Eliquis. We will follow with you. Overall, the patient's condition is same, not in distress. We will manage medically. Thank you, Dr. Santiago for providing us the opportunity in taking care of the patient, Gareth Leblanc. Shayna Thomson MD
[2018-07-24 07:12] LABS: BASO # 0.01 K/mm3 (0.0-2.0); BASO % 0.1 % (0.0-3.0); EOS # 0.1 (0.0-0.7); EOS % 1.1 % (1.5-5.0); GRAN # 6.87 (1.4-6.5); GRAN % 64.9 % (50.0-68.0); HEMOGLOBIN 14.3 g/dL (14.0-18.0); LYMPH # 2.4 (1.2-3.4); LYMPH % 22.5 % (22.0-35.0); MEAN CELL VOLUME 94.2 fl (80.0-105.0); MEAN CORPUSCULAR HEMOGLOBIN 30.5 pg (25.0-35.0); MEAN CORPUSCULAR HGB CONC 32.4 g/dl (31.0-37.0); MEAN PLATELET VOLUME 9.7 fl (7.0-11.0); MONO # 1.2 (0.1-0.6); MONO % 11.4 % (1.0-6.0); RBC 4.69 10^6/uL (3.5-6.1); RED CELL DISTRIBUTION WIDTH 15.1 % (11.5-14.5); WHITE BLOOD COUNT 10.6 10^3/ul (4.5-11.0)
[2018-07-24 07:19] LABS: ALBUMIN 4.1 g/dL (3.0-4.8); CALCIUM 9.2 mg/dL (8.4-10.5)
[2018-07-24] MEDS: Verapamil 120 mg ER Tab PO SCH (09:42)
[2018-07-24] MEDS: metOLazone 2.5 MG TAB PO SCH ×2 (09:43→17:36)
--- NOTE | 2018-07-24 12:59 | PN ---
DATE: 07/24/2018 SUBJECTIVE: The patient is 37 years old, seen and examined, still complained of shortness of breath. He states with minimal activity, he gets short of breath. PHYSICAL EXAMINATION: VITAL SIGNS: He is afebrile, pulse 96, respirations 20, blood pressure 126/90. LUNGS: Bilateral diffusely decreased breath sound. HEART: S1 and S2 audible. ABDOMEN: Soft, obese, nontender. No rebound. No guarding. NEUROLOGICAL: The patient is awake, alert, oriented, communicative. LABORATORY EXAM: WBC is 10.6, hemoglobin 14, hematocrit 44.2, platelet 296. Chemistry: Sodium 132, potassium 4.2, chloride 95, CO2 of 28, BUN 44, creatinine 1.7, blood sugar of 104, magnesium 2.3, digoxin level is 0.4. Urine cultures are negative. ASSESSMENT: 1. Congestive heart failure exacerbation, acute on chronic, systolic. 2. Cardiomyopathy. 3. Renal insufficiency. 4. History of nephrolithiasis, status post stent placement. 5. Cardiomyopathy. 6. Morbid obesity. 7. History of recurrent pancreatitis. PLAN: Currently, the patient is on diuretics. Has been added metolazone. Out of bed to chair. I discussed with the patient about weight loss. He states because he is getting short of breath, he cannot do any exercise. He is seriously thinking about gastric bypass procedure. I am not sure at this point with other comorbidity, he is a good candidate. I will discuss with Dr. Choe and make further plan. We will monitor his electrolyte. Sammy Santiago MD
[2018-07-24] MEDS: Digoxin 125 mcg (0.125 mg) Tab PO SCH (13:48)
--- NOTE | 2018-07-24 15:07 | PN ---
DATE: 07/24/2018 SUBJECTIVE: The patient is currently seen lying comfortable in bed on telemetry. He remains in atrial fibrillation. He remains volume overloaded. The patient has diuresed according to the patient 12 pounds since admission. MEDICATIONS: Medication list reviewed. The patient is currently on Aldactone, Calan, Coreg, digoxin, Dilaudid, Eliquis, IV Lasix, Pepcid, Zaroxolyn, Urocit-K and Zyloprim. OBJECTIVE: INTAKE OUTPUT: Intake is 2600, output is 4300. VITAL SIGNS: Blood pressure is 130/90, temperature 98.5, pulse of 96 and irregular. Respiratory rate is 20. HEENT: Shows him to be normocephalic, atraumatic. Conjunctivae are pink. Sclerae are nonicteric. NECK: Supple. No neck vein distention. CHEST: Clear to auscultation and percussion. Distant breath sounds. No rales, rhonchi or wheezing noted. CARDIAC: S1, S2 are irregular. Positive MR/TR. No S3, no S4, no rub. ABDOMEN: Soft. Bowel sounds normal. Mild distention. Positive obesity. No rebound or guarding. EXTREMITIES: Show 1+ pitting edema of his lower extremities bilaterally. LABORATORY DATA AND IMAGING: Admitting chest x-ray showed CHF with cardiomegaly. Abdominopelvic CT scan showed no significant acute findings. He has a double-J stent in the left ureter. Labs, CBC: White blood cell count down to 10.6, hemoglobin 14.2 with a platelet count of 296,000. Chemistries showed normal electrolytes. BUN 44 with a creatinine of 1.7 at baseline levels. Calcium 9.2. Phosphorus mildly elevated at 5.1, magnesium 2.3. Liver enzymes are normal. Albumin level was 4.1. TSH level was normal. Troponins are unremarkable. Urines showed no protein. Microbiology: Urine cultures are negative. ASSESSMENT: 1. Decompensated congestive heart failure in a patient with cardiomyopathy, ejection fraction 33% with mild valvular heart disease. The patient is found to have hypertensive cardiomyopathy. In the past, the patient had been maintained on Primacor, currently he is off this inotrope. He appears to be diuresing nicely on combination of IV Lasix and Zaroxolyn. We need to follow his labs closely as the patient had elevated his BUN and creatinine in the past from combination diuretic therapy. 2. History of hypertension. Blood pressure is controlled. 3. History of stable chronic kidney disease stage 3. 4. History of atrial fibrillation. The patient remains on Eliquis. He also remains on verapamil and Coreg and Lanoxin for rate control. 5. History of morbid obesity. 6. History of kidney stones, left hydronephrosis, status post left ureteral stent, which is still visualized on the CAT scan done on admission. 7. Mild hyperphosphatemia. Phosphorus level is 5.1. The patient should be maintained on a renal diet and p.r.n. the patient can be started on binder therapy. 8. History of left-sided hydronephrosis with a stent. Past history of kidney stones. PLAN: 1. For right now, continue to diurese the patient. In the past, the patient had been diuresed 20 plus pounds on each admission. Currently, according to the patient, he is only down 12 pounds. Continue combination IV Lasix with Zaroxolyn. 2. Continue to monitor accurate I's and O's and daily weights. 3. Continue chronic anticoagulation for atrial fibrillation and maintain rate control. 4. Monitor BUN and creatinine as these had elevated in the past when the patient had been diuresed aggressively. Sean Reich MD
--- NOTE | 2018-07-24 16:45 | PN ---
DATE: 07/24/2018 REASON FOR CONSULTATION AND FOLLOWUP: Shortness of breath, cardiac evaluation, cardiomyopathy, atrial fibrillation, congestive heart failure secondary to acute on chronic systolic dysfunction. SUBJECTIVE: Complains of shortness of breath. OBJECTIVE: GENERAL: Not in apparent distress, lying flat in the bed. VITAL SIGNS: Temperature afebrile, heart rate 96, blood pressure 107/66. HEENT: PERRLA. Extraocular muscles intact. NECK: Supple. No carotid bruit or thyromegaly. CHEST: Clear to auscultation. HEART: S1 and S2, regular. ABDOMEN: Soft. EXTREMITIES: Clubbing and cyanosis negative. LABORATORY DATA: Blood workup as follows: WBC 10.6, hemoglobin 14.3, hematocrit 44.2, and platelet count 296. Chemistry shows sodium , potassium 4.2, chloride 95, carbon dioxide of 28, anion gap of 12. BUN 44, creatinine 1.7. IMPRESSION: A 37-year-old morbidly obese male with past medical history significant for morbid obesity, body mass index of 62 kg/m2, weight 465 pounds, admitted with decompensated congestive heart failure, history of chronic atrial fibrillation, history of nonischemic cardiomyopathy, history of cardiac cath 4 years ago, just admitted with nonobstructive coronary artery disease, mitral regurgitation, tricuspid regurgitation. RECOMMENDATION: Continue aggressive diuresis. Supplement electrolytes as needed and monitor electrolytes. Continue Eliquis 5 mg b.i.d. Discontinue telemetry. As mentioned, the patient emphasizes on weight reduction and compromises with the medications. Shayna Thomson MD
--- NOTE | 2018-07-25 02:16 | CON ---
DATE: 07/24/2018 UROLOGY CONSULTATION CHIEF COMPLAINT: Shortness of breath. HISTORY OF PRESENT ILLNESS: This is a 37-year-old male who is well known to me. Patient has multiple medical issues including cardiomyopathy with a poor ejection fraction, recurrent episodes of congestive heart failure. He presented complaining of shortness of breath. He has a history of chronic pancreatitis with a chronic abdominal pain. He has chronic urinary frequency and urgency. He has a left lower pole renal calculus with an indwelling stent. He has had recurrent episodes of urosepsis. consultation was requested regarding the renal stone. Patient is complaining of urinary frequency and urgency, which he has had for an extended period of time. He is on multiple diuretics. He is extremely noncompliant with his medication or with his treatment plans and has had multiple admissions for these problems. PAST MEDICAL HISTORY: Significant for cardiomyopathy, nonischemic; congestive heart failure; history of anemia; chronic edema; sleep apnea; kidney stones; GERD; diverticulitis; chronic pancreatitis; chronic abdominal pain. MEDICATIONS: Currently include Aldactone, Calan, Coreg, digoxin, Dilaudid, Eliquis, Lasix, Pepcid, Urocit-K, Zaroxolyn and Zyloprim. ALLERGIES: ALLERGIC TO LUZ INHIBITORS. FAMILY HISTORY: Noncontributory. SOCIAL HISTORY: Positive for smoking, positive for ETOH abuse in the past. REVIEW OF SYSTEMS: A 12-point review of systems was obtained. Positive for cough. Positive for shortness of breath. Denies chest pain but positive for palpitations. Positive for lower extremity edema. On abdomen, positive for abdominal pain. Positive for nausea. No vomiting. Reports no diarrhea or constipation currently. For , positive for urinary frequency, urgency, occasional dysuria, occasional gross hematuria, left flank pain and renal calculi. For neurologic, positive for numbness and tingling of the lower extremities. Positive for headaches. For musculoskeletal, positive for hip and leg pain as well as low back pain. For psychiatric, does report feeling depressed about his health. Other systems are negative. PHYSICAL EXAMINATION: GENERAL: Patient is awake and alert. He is answering questions although somewhat tachypneic. He is alert and oriented. VITAL SIGNS: Show he is afebrile, temperature of 98.5, BP 117/84, respirations 22, pulse of 76. NECK: Supple. There is no adenopathy or mass noted. CHEST: Reveals somewhat increased inspiratory rate and effort. CARDIAC: Shows an irregular rhythm. There is peripheral edema noted. ABDOMEN: Abdomen is morbidly obese, soft, nontender. No rebound or guarding. There is no CVA tenderness. GENITOURINARY: Phallus is normal. Scrotum is normal. Testes bilaterally descended, nontender, no masses. Epididymis are normal. EXTREMITIES: There is peripheral edema noted. LABORATORY EXAM: WBC count was 13.3, now down to 10.6, GFR of 55, creatinine of 1.7 and BUN of 44. Lipase 176 from yesterday. BNP of 1510. Urinalysis showed 20 to 25 rbc's, 2 to 5 wbc's, negative for nitrites. Urine culture showed no growth, less than 1000 CFU/mL. On radiologic exam, patient had a CT scan of the abdomen and pelvis on the , which showed left kidney has a double J-stent in satisfactory position. There was no obstructing upper tract calculi. No appreciable edema of the left kidney. The right kidney was unremarkable. Bladder was unremarkable. IMPRESSION AND PLAN: This is a 37-year-old male who was well known to me. Urologically, patient is currently stable with the left stent in place. Patient has worsening cardiomyopathy and decreasing ejection fraction. He is currently being diuresed for congestive heart failure. In the past, patient had life threatening urosepsis from obstructing stone when the stent was removed. Patient was recommended to a few centers who specialize in upper tract ureteroscopy and stone removal with specialized equipment that is not available at [facility]. Given patient's marked comorbidities, his poor ejection fraction, recurrent congestive heart failure and on blood thinners for arrhythmia, he was felt not to be a good candidate for percutaneous stone removal as this will need to be done in the prone position. Patient would be difficult to ventilate, given his morbid obesity and we felt this was a high risk case. Therefore patient has been managed with an indwelling stent, which has been changed periodically. Stent was just changed approximately two months ago and is not due at this time to be changed. I will however, discuss with patient's medical team that possibly we can remove the stent at this time as his ureter should be dilated, we can do this as well. Patient is on appropriate antibiotics, which should prevent an episode of sepsis. If the stone does come down into the ureter, it would be possible to perform a ureteroscopy and stone basketing or removal. Again this is not an optimal plan, given patient's massive comorbidities, I feel that the stent is likely preventing him from another episode of life threatening urosepsis but I will discuss this possible removal with his medical team perhaps when patient is medically optimized. We can discharge him and bring him back in the future while on appropriate antibiotics to attempt this, as it does not seem that patient will ever follow up with the suggested physicians for the complicated upper tract stone removal. Thank you for allowing me to participate in the care of this patient. We will follow him with you. Kamari Love MD
[2018-07-25] MEDS: HYDROmorphone 2 mg/ml ISec IVP PRN ×5 (05:54→22:52)
[2018-07-25 06:32] LABS: HEMOGLOBIN 14.8 g/dL (14.0-18.0); MEAN CORPUSCULAR HEMOGLOBIN 30.8 pg (25.0-35.0); MEAN CORPUSCULAR HGB CONC 32.7 g/dl (31.0-37.0); MEAN PLATELET VOLUME 9.6 fl (7.0-11.0); RBC 4.81 10^6/uL (3.5-6.1); RED CELL DISTRIBUTION WIDTH 14.8 % (11.5-14.5); WHITE BLOOD COUNT 10.1 10^3/ul (4.5-11.0)
[2018-07-25 06:48] LABS: ALBUMIN 3.9 g/dL (3.0-4.8); CALCIUM 9.4 mg/dL (8.4-10.5); URIC ACID 13.2 mg/dL (3.5-8.5)
[2018-07-25] MEDS: metOLazone 2.5 MG TAB PO SCH ×2 (09:00→17:41)
[2018-07-25] MEDS: Verapamil 120 mg ER Tab PO SCH (09:00)
[2018-07-25] MEDS: Digoxin 125 mcg (0.125 mg) Tab PO SCH (15:21)
--- NOTE | 2018-07-25 15:28 | PN ---
DATE: 07/25/2018 REASON FOR CONSULTATION: Followup shortness of breath, cardiac evaluation, nonischemic cardiomyopathy, atrial fibrillation, congestive heart failure secondary to acute on chronic systolic dysfunction, nephrolithiasis, status post stent. SUBJECTIVE: Patient complained of tiredness and shortness of breath on walking. Denies any chest pain, shortness of breath on lying down. OBJECTIVE: GENERAL: Not in apparent distress, lying flat on the bed. VITAL SIGNS: Temperature afebrile, heart rate 84, blood pressure 123/76. HEENT: PERRLA. Extraocular muscles intact. NECK: Supple. No carotid bruits or thyromegaly. CHEST: Clear to auscultation. HEART: S1 and S2, regular. ABDOMEN: Soft. EXTREMITIES: Clubbing and cyanosis negative. Telemetry discontinued, earlier with AFib. LABORATORY DATA: Blood workup as follows: WBC 10.9, hemoglobin 14.8, hematocrit 45.2, platelet count 296. Chemistry shows sodium 130, potassium 4.5, chloride 93, carbon dioxide 28, anion gap of 15, BUN 44, creatinine 1.7. IMPRESSION: A 37-year-old male with morbid obesity, body mass index 62 kg/m2, admitting weight is 465 pounds, admitted with decompensated congestive heart failure, history of chronic atrial fibrillation, nonischemic cardiomyopathy, history of cardiac cath 4 years ago, admitted with shortness of breath, history of mitral regurgitation and tricuspid regurgitation, history of chronic atrial fibrillation on Eliquis, history of nephrolithiasis, renal insufficiency, status post stent in the ureter, history of alcohol abuse in the past, history of recurrent pancreatitis, not using alcohol, quit alcohol, still smokes half a pack a day. RECOMMENDATION: Continue gentle diuretics. Cut down to 40 b.i.d. Patient is already on metolazone. Continue Eliquis. Continue verapamil 120 mg to control the heart rate. Telemetry had been discontinued. Patient is stable from Cardiology point of view. Once it is cleared from zackery to be discharged. Last echo patient had on 04/25/2018 that shows four chamber dilatation, cardiomyopathy, ejection fraction 30%-35%, RV systolic pressure 51 mmHg, moderate MR, moderate TR, dated 04/26/2018. Thank you, Dr. Santiago, for providing us the opportunity in taking care of the patient, Gareth Leblanc. Shayna Thomson MD [facility] # [id number]
--- NOTE | 2018-07-25 18:09 | PN ---
DATE: 07/25/2018 SUBJECTIVE: The patient is seen sitting in bed. Eating lunch. He does not appear to be in any kind of distress, but he complains of shortness of breath, dyspnea on exertion. He also complains of back pain. PHYSICAL EXAMINATION; GENERAL: Middle-aged male, sitting in bed. VITAL SIGNS: Blood pressure 137/89, heart rate 81, respiratory rate 18-20, temperature 98. HEENT: Normocephalic, atraumatic, positive pallor. NECK: Supple, no JVD. LUNGS: Bilateral equal air entry, bilateral equal expansion, no rales. CARDIAC: S1 and S2, regular rate and rhythm, no murmur, no rub. ABDOMEN: Obese, distended, soft, nontender, bowel sounds present. EXTREMITIES: Trace lower extremity edema. INTAKE AND OUTPUT: 2059/[id number]. LABORATORY DATA: WBC 10, hemoglobin 14.8, hematocrit 45, platelets 296. Sodium 132, potassium 4.5, chloride 93, CO2 of 28, BUN 44, creatinine 1.7, glucose 106, calcium 9.4, phosphorus 5.1, magnesium 2.3, uric acid 13.2, albumin 3.9. Urine culture, no growth. CURRENT MEDICATIONS: Aldactone 25 b.i.d., Calan 120, Coreg 3.125 b.i.d., digoxin 0.125 daily, Dilaudid, Eliquis 5 every 12, Lasix 40 IV every 12, Pepcid, Urocit-K 10 mEq b.i.d., Zaroxolyn 2.5 b.i.d., Zyloprim 100. ASSESSMENT: 1. Decompensated congestive heart failure, lower extremity edema, shortness of breath. 2. Chronic kidney disease stage 3. 3. Morbid obesity. 4. Sleep apnea. 5. History of atrial fibrillation, on anticoagulation. 6. History of nephrolithiasis, left hydronephrosis, left ureteral stent. 7. History of recurrent pancreatitis. PLAN: 1. Continue to diurese, continue Lasix IV every 12. 2. Continue metolazone 2.5 b.i.d. 3. Continue beta-chava. 4. Monitor urine output. 5. Monitor electrolytes. Angelica Don MD [facility] # [id number]
--- NOTE | 2018-07-25 20:27 | PN ---
DATE: 07/25/2018 SUBJECTIVE: Patient is 37 years old, seen and examined, still complaining of shortness of breath, leg swelling. PHYSICAL EXAMINATION: VITAL SIGNS: Patient is afebrile, pulse 71, respirations 19, blood pressure 139/90. LUNGS: Bilateral diffused decreased breath sounds at bases. HEART: S1, S2 audible. ABDOMEN: Soft, obese, nontender. No rebound. No guarding. NEUROLOGICAL: He is awake, alert, oriented, communicative. Moves all extremities. EXTREMITIES: Bilateral legs, +1 edema. LABORATORY EXAMINATION: WBC 10, hemoglobin 14, hematocrit 45, platelets 296. Chemistry: Sodium 132, potassium 4.5, chloride 93, CO2 28, BUN 44, creatinine 1.7, blood sugar of 106. Uric acid 13.2. ASSESSMENT: 1. Morbid obesity. 2. Cardiomyopathy. 3. Congestive heart failure with a systolic dysfunction. 4. History of nephrolithiasis. 5. Intermittent atrial fibrillation. 6. Recurrent pancreatitis. PLAN: Currently the patient is on verapamil, carvedilol, digoxin. He is on Eliquis, Lasix. Awaiting Dr. Love's evaluation and follow up electrolyte in a.m. Sammy Santiago MD
[2018-07-26] MEDS: HYDROmorphone 2 mg/ml ISec IVP PRN ×6 (02:51→22:53)
--- NOTE | 2018-07-26 09:22 | CP.PCM.PN ---
Subjective - Date & Time of Evaluation Date of Evaluation: 07/26/18 Time of Evaluation: 06:45 - Subjective Subjective: Awake, alert, no distress Reason for consultation and follow up: Cardiac evaluation of chest pain and shortness of breath, history of cardiomyopathy,atrial fibrillation on Eliquis, chronic pancreatitis, hypertension. Seen and examined by me and Dr. Thomson Objective - Vital Signs/Intake and Output Vital Signs (last 24 hours): Temp Pulse Resp BP Pulse Ox 97.3 F L 73 18 106/56 L 94 L 07/25/18 23:17 07/25/18 23:17 07/25/18 23:17 07/25/18 23:17 07/25/18 23:17 - Medications Medications: Current Medications Allopurinol (Zyloprim) 100 mg PO DAILY [facility] Last Admin: 07/25/18 09:00 Dose: 100 mg Apixaban (Eliquis) 5 mg PO Q12 [facility]; Protocol Last Admin: 07/25/18 22:53 Dose: 5 mg Carvedilol (Coreg) 3.125 mg PO BID [facility] Last Admin: 07/25/18 17:41 Dose: 3.125 mg Digoxin (Digoxin) 0.125 mg PO 1400 [facility] Last Admin: 07/25/18 15:21 Dose: 0.125 mg Famotidine (Pepcid) 20 mg PO DAILY [facility] Last Admin: 07/25/18 09:00 Dose: 20 mg Furosemide (Lasix) 40 mg IV 0800,1400 [facility] Last Admin: 07/25/18 15:21 Dose: 40 mg Hydromorphone HCl (Dilaudid) 2 mg IVP Q4H PRN PRN Reason: Pain, moderate (4-7) Last Admin: 07/26/18 06:36 Dose: 2 mg Metolazone (Zaroxolyn) 2.5 mg PO BID [facility] Last Admin: 07/25/18 17:41 Dose: 2.5 mg Potassium Citrate (Urocit-K Er Tab) 10 meq PO BID [facility] Last Admin: 07/25/18 17:41 Dose: 10 meq Spironolactone (Aldactone) 25 mg PO BID [facility] Last Admin: 07/25/18 17:41 Dose: 25 mg Verapamil HCl (Calan Sr Tab) 120 mg PO DAILY [facility] Last Admin: 07/25/18 09:00 Dose: 120 mg - Labs Labs: 07/25/18 06:00 07/25/18 06:00 PT 13.5 SECONDS (9.4-12.5) H 07/22/18 14:51 INR 1.18 07/22/18 14:51 APTT 36.6 Seconds (25.1-36.5) H 07/22/18 14:51 - Constitutional Appears: Non-toxic, No Acute Distress - Head Exam Head Exam: NORMAL INSPECTION, NORMOCEPHALIC - Eye Exam Eye Exam: Normal appearance Pupil Exam: NORMAL ACCOMODATION - ENT Exam ENT Exam: Mucous Membranes Moist - Respiratory Exam Respiratory Exam: Decreased Breath Sounds, Clear to Ausculation Bilateral, NORMAL BREATHING PATTERN - Cardiovascular Exam Cardiovascular Exam: +S1, +S2 - GI/Abdominal Exam GI & Abdominal Exam: Soft, Normal Bowel Sounds - Extremities Exam Additional comments: 2-3+ leg edema - Neurological Exam Neurological Exam: Alert, Awake, Oriented x3 - Psychiatric Exam Psychiatric exam: Normal Affect, Normal Mood - Skin Skin Exam: Dry, Normal Color, Warm Assessment and Plan - Assessment and Plan (Free Text) Assessment: A 37 year old morbidly obese male who came in to the ER due to chest pain and shortness of breath. patient is known to service for multiple admissions of similar symptoms. History of non ischemic cardiomyopathy, non obstructive coronary artery disease, chronic systolic dysfunction congestive heart failure,chronic atrial fibrillation (on Eliquis), diabetes, hypertension, hyperlipidemia, heavy alcohol abuse, chronic pancreatitis, renal insufficiency, kidney stones, current smoking of half pack a day. Admitted for exacerbation of congestive heart failure. Diuresed, pain management of back pain. Plan: Feels better, complaints of shortness of breath when walking No distress at rest Blood pressure and heart rate controlled PRN Dilaudid for back pain Clinically stable Continue current medications Continue current treatment Extensive discussion with patient on weight reduction Discussion with patient on smoking cessation Seen by Urology, recommendations appreciated May discharge from cardiac standpoint Chart reviewed Will follow up Plan and treatment discussed with Dr. Thomson
[2018-07-26] MEDS: metOLazone 2.5 MG TAB PO SCH ×2 (10:06→17:15)
[2018-07-26] MEDS: Verapamil 120 mg ER Tab PO SCH (10:06)
--- NOTE | 2018-07-26 12:41 | PN ---
DATE: 07/26/2018 SUBJECTIVE: The patient is 37 years old, seen and examined. Still complained of shortness of breath on minimal walking. Still has leg swelling. PHYSICAL EXAMINATION: VITAL SIGNS: He is afebrile, pulse 79, respirations 20, blood pressure 104/67. LUNGS: Bilateral fair airflow. Decreased at bases. HEART: S1 and S2 audible. ABDOMEN: Soft, obese, nontender. No rebound. No guarding. NEUROLOGICAL: The patient is awake, alert, oriented, communicative. EXTREMITIES: Bilateral leg, no edema. LABORATORY EXAM: WBC is 10.1, hemoglobin 14, hematocrit 45, platelet 296. Chemistry: Sodium 132, potassium 4.5, chloride 93, CO2 of 28, BUN 44, creatinine 1.7, blood sugar of 106. ASSESSMENT: 1. Congestive heart failure exacerbation, acute on chronic. 2. Mild renal insufficiency. 3. History of left nephrolithiasis. 4. Morbid obesity. 5. Chronic intermittent atrial fibrillation. PLAN: Currently, the patient is on metolazone, allopurinol, potassium, famotidine, Lasix. I will talk to Dr. Love for possible lithotripsy. I have discussed with Dr. Love in the past that traditional lithotripsy might not work because of him being overweight. He needs to see urologist in [place] for special procedure there they will do intraluminal laser lithotripsy. We will reach out to Dr. Love and get the address and number, so that the patient can follow with the urologist in [place]. I also discussed with Dr. Choe about his candidate for bariatric surgery. First, we have to take care of his nephrolithiasis since he can get recurrent UTIs. Unless that is taken care of, he should not proceed for bariatric surgery and bariatric surgery in the long run could be a good choice and that might help him for his cardiomyopathy. Sammy Santiago MD
--- NOTE | 2018-07-26 13:45 | PN ---
DATE: 07/26/2018 SUBJECTIVE: The patient is seen sitting in bed. He is awake, he is alert, he is comfortable. He does not appear to be in any kind of distress. His edema has significantly improved. PHYSICAL EXAMINATION: GENERAL: Morbidly obese middle-aged male, sitting in bed. VITAL SIGNS: Blood pressure 104/67, heart rate 79, respiratory rate 20, temperature 98.3. HEENT: Normocephalic, atraumatic, positive pallor. NECK: Supple, no JVD. LUNGS: Bilateral equal air entry, bilateral equal expansion. CARDIAC: S1 and S2, regular rate and rhythm, no murmur, no rub. ABDOMEN: Obese, distended, soft, nontender, bowel sounds present. EXTREMITIES: Edema of the dorsum of the feet. LABORATORY DATA: WBC 10, hemoglobin 14.8, hematocrit 45, platelets 296. Sodium 132, potassium 4.5, chloride 93, CO2 of 28, BUN 44, creatinine 1.7, glucose 106, uric acid 13.2, phosphorus 5.1, magnesium 2.3, albumin 3.9. CURRENT MEDICATIONS: Aldactone 25 b.i.d., Calan 120, Coreg 3.125 b.i.d., digoxin 0.125 daily, Eliquis 5 b.i.d., Lasix 40 IV every 12, metolazone 2.5 b.i.d., Urocit-K 10 mEq b.i.d., Zyloprim. ASSESSMENT: 1. Decompensated congestive heart failure, volume overload, improving. 2. Severe hypertension, hypertensive heart disease, cardiomyopathy. 3. Morbid obesity. 4. Recurrent kidney stones, left hydronephrosis, history of pyelonephritis, recurrent urinary tract infection, currently with left ureteral stent. 5. Sleep apnea. PLAN: 1. Check labs. 2. Continue IV Lasix. 3. Monitor urine output closely. 4. Increase allopurinol to 300 mg daily. 5. Discharge planning. Angelica Don MD
[2018-07-26] MEDS: Digoxin 125 mcg (0.125 mg) Tab PO SCH (14:44)
[2018-07-26 16:49] LABS: CALCIUM 9.6 mg/dL (8.4-10.5)
[2018-07-26] MEDS: Levalbuterol 0.63 MG/3 ML Inhal Soln UD IH SCH (20:12)
[2018-07-27] MEDS: HYDROmorphone 2 mg/ml ISec IVP PRN ×5 (03:23→20:29)
--- NOTE | 2018-07-27 06:17 | CP.PCM.PN ---
Subjective - Date & Time of Evaluation Date of Evaluation: 07/27/18 Time of Evaluation: 06:35 - Subjective Subjective: No distress,awake, alert, Reason for consultation and follow up: Cardiac evaluation of chest pain and shortness of breath, history of cardiomyopathy,atrial fibrillation on Eliquis, chronic pancreatitis, hypertension. Seen and examined by me and Dr. Thomson Objective - Vital Signs/Intake and Output Vital Signs (last 24 hours): Temp Pulse Resp BP Pulse Ox 98.3 F 75 20 121/77 99 07/26/18 23:21 07/26/18 23:21 07/26/18 23:21 07/26/18 23:21 07/26/18 23:21 Intake and Output: 07/26/18 07/27/18 18:59 06:59 Output Total 1000 Balance -1000 - Medications Medications: Current Medications Allopurinol (Zyloprim) 300 mg PO DAILY [facility] Apixaban (Eliquis) 5 mg PO Q12 [facility]; Protocol Last Admin: 07/26/18 22:53 Dose: 5 mg Carvedilol (Coreg) 3.125 mg PO BID [facility] Last Admin: 07/26/18 17:15 Dose: 3.125 mg Digoxin (Digoxin) 0.125 mg PO 1400 [facility] Last Admin: 07/26/18 14:44 Dose: 0.125 mg Famotidine (Pepcid) 20 mg PO DAILY [facility] Last Admin: 07/26/18 10:06 Dose: 20 mg Furosemide (Lasix) 40 mg IV 0800,1400 [facility] Last Admin: 07/26/18 14:44 Dose: 40 mg Hydromorphone HCl (Dilaudid) 2 mg IVP Q4H PRN PRN Reason: Pain, moderate (4-7) Last Admin: 07/27/18 03:23 Dose: 2 mg Levalbuterol HCl (Xopenex) 0.63 mg IH TIDRESP [facility] Last Admin: 07/26/18 20:12 Dose: 0.63 mg Metolazone (Zaroxolyn) 2.5 mg PO BID [facility] Last Admin: 07/26/18 17:15 Dose: 2.5 mg Potassium Citrate (Urocit-K Er Tab) 10 meq PO BID [facility] Last Admin: 07/26/18 17:14 Dose: 10 meq Spironolactone (Aldactone) 25 mg PO BID [facility] Last Admin: 07/26/18 17:15 Dose: 25 mg Verapamil HCl (Calan Sr Tab) 120 mg PO DAILY [facility] Last Admin: 07/26/18 10:06 Dose: 120 mg - Labs Labs: 07/25/18 06:00 07/26/18 16:21 PT 13.5 SECONDS (9.4-12.5) H 07/22/18 14:51 INR 1.18 07/22/18 14:51 APTT 36.6 Seconds (25.1-36.5) H 07/22/18 14:51 - Constitutional Appears: Non-toxic, No Acute Distress - Head Exam Head Exam: NORMAL INSPECTION, NORMOCEPHALIC - Eye Exam Eye Exam: Normal appearance Pupil Exam: NORMAL ACCOMODATION - ENT Exam ENT Exam: Mucous Membranes Moist - Respiratory Exam Respiratory Exam: Decreased Breath Sounds, Clear to Ausculation Bilateral, NORMAL BREATHING PATTERN - Cardiovascular Exam Cardiovascular Exam: +S1, +S2 - GI/Abdominal Exam GI & Abdominal Exam: Soft, Normal Bowel Sounds - Extremities Exam Extremities Exam: Full ROM Additional comments: 2-3+ leg edema - Neurological Exam Neurological Exam: Alert, Awake, Oriented x3 - Psychiatric Exam Psychiatric exam: Normal Affect, Normal Mood - Skin Skin Exam: Dry, Normal Color, Warm Assessment and Plan - Assessment and Plan (Free Text) Assessment: A 37 year old morbidly obese male who came in to the ER due to chest pain and shortness of breath. patient is known to service for multiple admissions of similar symptoms. History of non ischemic cardiomyopathy, non obstructive coronary artery disease, chronic systolic dysfunction congestive heart jc lure,chronic atrial fibrillation (on Eliquis), diabetes, hypertension, hyperlipidemia, heavy alcohol abuse, chronic pancreatitis, renal insufficiency, kidney stones, current smoking of half pack a day. Admitted for exacerbation of congestive heart failure. Diuresed, pain management of back pain. Clinically stable. Less leg swelling /edema. Plan: Feels better, No distress at rest Blood pressure and heart rate controlled PRN Dilaudid for back pain Still with leg edema but better Clinically stable On Eliquis 5 mg BID,Coreg 3.125 mg BID,Digoxin 0.125 mg daily, Lasix 40 mg BID,Zaroxylyn 2.5 mg BID,Potassium Citrate 10 latoya BID, Aldactone 25 mg BID, Verapamil 120 mg daily Continue current medications Continue current treatment Lifestyle modification Smoking cessation May discharge from cardiac standpoint Chart reviewed Will follow up Plan and treatment discussed with Dr. Thomson
[2018-07-27] MEDS: Levalbuterol 0.63 MG/3 ML Inhal Soln UD IH SCH ×3 (07:39→20:50)
--- NOTE | 2018-07-27 08:59 | PN ---
DATE: 07/26/2018 PRIMARY CARE PHYSICIAN: Dr. Santiago. The patient is a male. The patient is 37. REASON FOR CONSULTATION: Cardiac evaluation; chest pain; shortness of breath; cardiomyopathy; atrial fibrillation, on Eliquis; nephrolithiasis; pancreatitis. SUBJECTIVE: The patient was seen. Chart reviewed with our Nurse Practioner Hanny Feldman The patient is stable. No leg edema. Lungs are clear. Being evaluated and treated for nephrolithiasis. Currently, on Lasix. He is stable and comfortable, not in acute decompensated congestive heart failure, not in heart failure now. RECOMMENDATIONS: Continue diuretics. Continue verapamil. Continue Coreg. Continue digoxin. Continue Eliquis, increase to 5 mg b.i.d. because of the weight of 468 pounds admitting and the creatinine clearance is 45 mL, only 130 out of the admitting, so he will continue 5 mg b.i.d. He is a 37-year-old, weight of 468, the creatinine clearance is 40's so we will continue at 5 mg b.i.d. CVS status is stable. Discussed with the patient for evaluation for Gastri By pass I discussed with Dr. Don and Dr. Santiago. The patient needs to take care of himself, otherwise that can prevent him for readmitting. The patient is frequently being admitted, very noncompliant, still smokes, and on mentioning for weight reduction, the patient gets very upset. He thinks all these symptoms are not because of the weight. We will follow with you. Thank you, for providing us the opportunity in taking care of Gareth Leblanc. The patient is stable, okay to be discharged from Cardiology point of view. Probably, we will sign off in a day or two. Shayna Thomson MD [facility]
[2018-07-27] MEDS: Verapamil 120 mg ER Tab PO SCH (10:49)
[2018-07-27] MEDS: metOLazone 2.5 MG TAB PO SCH ×2 (10:50→17:44)
[2018-07-27] MEDS: Digoxin 125 mcg (0.125 mg) Tab PO SCH (14:16)
--- NOTE | 2018-07-27 16:29 | PCM.URO ---
Urology Progress Note - Objective Lab Studies: Reviewed (gu plans : full note to be dictated thanks for gu consult) Lab Results Last 24 Hours: Laboratory Results - last 24 hr 07/26/18 16:21 Sodium 134 Potassium 3.7 Chloride 89 L Carbon Dioxide 33 Anion Gap 15 BUN 57 H Creatinine 2.1 H Est GFR ( Amer) 43 Est GFR (Non-Af Amer) 35 Random Glucose 127 H Calcium 9.6 Phosphorus 6.7 H Magnesium 2.4 H Intake & Output: Intake & Output 07/26/18 07/27/18 07/27/18 18:59 06:59 18:59 Output Total 1000 Balance -1000 Output: Urine 1000 Urine, Voided 1000 Vital Signs: Vital Signs - 24 hr 07/26/18 07/26/18 07/27/18 20:17 23:21 06:00 Temperature 98.3 F 98.5 F Pulse Rate 66 75 65 Respiratory 20 18 Rate Blood Pressure 121/77 123/77 O2 Sat by Pulse 99 96 Oximetry 07/27/18 07/27/18 07/27/18 08:06 10:49 14:00 Temperature 98.5 F Pulse Rate 63 77 Respiratory 18 Rate Blood Pressure 123/77 110/70 121/87 O2 Sat by Pulse 100 Oximetry 07/27/18 14:16 Temperature Pulse Rate Respiratory Rate Blood Pressure 120/88 O2 Sat by Pulse Oximetry
--- NOTE | 2018-07-27 20:01 | PN ---
DATE: 07/27/2018 REASON FOR CONSULTATION AND FOLLOWUP: Chest pain, shortness of breath, nonischemic cardiomyopathy, atrial fibrillation, on Eliquis; nephrolithiasis, and pancreatitis. SUBJECTIVE: The patient seen with our nurse practitioner. Discussed with the patient. The patient needs to be compliant with medication, morbid obesity, nonischemic cardiomyopathy, history of cardiac catheterization 2 to 3 years ago, and nonobstructive coronary artery disease. RECOMMENDATIONS: Continue Lasix. Continue spironolactone. Continue Verapamil. Continue Coreg. Possible discharge today. Suggested the patient long-term consider gastric bypass to reduce the weight, shortness of breath most likely secondary to morbid obesity. The patient need to reduce 100 to 150 pound at least. No active cardiac problem now, continue diuretics. We will sign off and glad to follow up p.r.n. Thank you Dr. Santiago, for providing us the opportunity in taking care of the patient, Deana Servin. Shayna Thomson MD
--- NOTE | 2018-07-27 21:40 | PN ---
DATE: 07/27/2018 SUBJECTIVE: The patient is seen sitting in bed. He is awake. He is alert. He denies any shortness of breath at present. He denies any chest pain. PHYSICAL EXAMINATION: GENERAL: Middle-aged male, lying in bed. VITAL SIGNS: Blood pressure 122/63, heart rate 72, respiratory rate 18, temperature 98.5. HEENT: Normocephalic, atraumatic, positive pallor. NECK: Supple, no JVD. LUNGS: Bilateral equal air entry, no rales, no rhonchi. CARDIAC: S1 and S2, regular rate and rhythm, no murmur, no rub. ABDOMEN: Obese, distended, soft, nontender, bowel sounds present. EXTREMITIES: No lower extremity edema. INTAKE AND OUTPUT: Not charted. LABORATORY DATA: WBC 10, hemoglobin 14.8, hematocrit 45, platelets 296. Sodium 134, potassium 3.7, chloride 89, CO2 of 33, BUN 57, creatinine 2.1, glucose 127, calcium 9.6, phosphorus 6.7, magnesium 2.4. CURRENT MEDICATIONS: Aldactone 25 b.i.d., Calan, Coreg 3.125 b.i.d., digoxin 0.125 daily, Dilaudid, Eliquis 5 every 12, Lasix 40 IV every 12, Pepcid 20, Urocit-K 10 mEq b.i.d., Xopenex, Zaroxolyn 2.5 b.i.d., Zyloprim. ASSESSMENT: 1. Acute kidney injury superimposed on chronic kidney disease stage 3, likely secondary to diuresis. 2. Decompensated congestive heart failure, much improved. 3. History of recurrent kidney stones, left hydronephrosis, left ureteral stent. 4. Morbid obesity. 5. Sleep apnea. PLAN: 1. Start Lasix p.o. b.i.d. 2. Monitor electrolytes closely. 3. Monitor urine output. 4. Case discussed with Dr. Santiago and Dr. Choe. Agree with evaluation for bariatric surgery. Angelica Don MD
[2018-07-28] MEDS: HYDROmorphone 2 mg/ml ISec IVP PRN ×4 (00:26→13:04)
[2018-07-28] MEDS: Levalbuterol 0.63 MG/3 ML Inhal Soln UD IH SCH ×2 (07:10→13:04)
[2018-07-28 07:54] LABS: BASO # 0.02 K/mm3 (0.0-2.0); BASO % 0.2 % (0.0-3.0); EOS # 0.1 (0.0-0.7); GRAN # 7.83 (1.4-6.5); GRAN % 62.6 % (50.0-68.0); HEMOGLOBIN 14.8 g/dL (14.0-18.0); LYMPH # 2.3 (1.2-3.4); MEAN CELL VOLUME 92.6 fl (80.0-105.0); MEAN CORPUSCULAR HEMOGLOBIN 30.5 pg (25.0-35.0); MONO # 2.3 (0.1-0.6); MONO % 18.2 % (1.0-6.0); RBC 4.85 10^6/uL (3.5-6.1); RED CELL DISTRIBUTION WIDTH 14.5 % (11.5-14.5); WHITE BLOOD COUNT 12.5 10^3/uL (4.5-11.0)
[2018-07-28 08:47] VITALS: PULSE 50; RESP 20; TEMP 98.4; O2SAT 96
[2018-07-28 08:48] LABS: ALBUMIN 4.4 g/dL (3.0-4.8); CALCIUM 9.5 mg/dL (8.4-10.5)
[2018-07-28] MEDS: metOLazone 2.5 MG TAB PO SCH (09:08)
[2018-07-28] MEDS: Verapamil 120 mg ER Tab PO SCH (09:09)
[2018-07-28 09:14] VITALS: BP 124/64
--- NOTE | 2018-07-28 10:32 | PN ---
DATE: 07/28/2018 SUBJECTIVE: The patient is currently seen ambulating in the room. He appears to be more comfortable. He continues to use oxygen. He remains on combination diuretic therapy with Lasix, Aldactone and Zaroxolyn. Difficult to know how much more weight the patient had lost. The last recorded weight is 458 pounds 14 ounces. MEDICATIONS: Medication list reviewed. The patient is currently on Aldactone, verapamil, Coreg, digoxin, Dilaudid, Eliquis, p.o. Lasix, Pepcid, Urocit-K, Xopenex, Zaroxolyn and Zyloprim. OBJECTIVE: INTAKE/OUTPUT: Intake not charted. Output 1000 mL. VITAL SIGNS: Blood pressure is 124/66, pulse of 50, temperature 98.4, respiratory rate 20 with a pulse ox of 96%. HEENT: Normocephalic, atraumatic. Conjunctivae remain pink. Sclerae are nonicteric. NECK: Supple. No neck vein distention. CHEST: Clear to auscultation and percussion with decreased breath sounds at the bases. No rales, rhonchi or wheezing. CARDIAC: Showed an irregular S1, S2. Positive MR/TR. No S3, no S4, no rub. ABDOMEN: Obese. Bowel sounds normal. Soft. Mild distention. No rebound or guarding. EXTREMITIES: Show puffy legs, but no pitting edema. LABORATORY DATA AND IMAGING: CBC: White blood cell count today 12.5, stable; hemoglobin is 14.8, stable; platelet count is 325,000. Chemistries today showed a sodium of 131 with a potassium of 3.7. Chloride is 88. BUN is up to 60 with diuretic therapy up from 43. Creatinine is up from 1.6 to 2, yesterday was 2.1. Glucose is 103. Calcium is 9.5. Yesterday's phosphorus level was 6.7 with a magnesium level of 2.4. His uric acid level was elevated at 13.2, likely diuretic effect. Albumin level was 4.4. Microbiology: Urine cultures were negative. ASSESSMENT: 1. Decompensated congestive heart failure in a patient with cardiomyopathy, ejection fraction 33% with valvular heart disease. The patient is felt to have hypertensive cardiomyopathy. The patient in the past had received Primacor. Currently, he is off this inotrope. He appears to be diuresing nicely, but weights are not accurate. He continues on p.o. Lasix, Zaroxolyn and he had received Aldactone. Potassium level is 3.7. As in the past, need to follow labs on a regular basis, daily weights and accurate inputs and outputs. 2. History of hypertension. Blood pressure controlled on present medical therapy. 3. History of stable chronic kidney disease stage 3. The patient does have a slight bump up in his BUN and creatinine from diuretic therapy. This has always been reversible in the past. 4. History of atrial fibrillation. The patient remains on Eliquis. He also continues on verapamil and Coreg. The patient is also on digoxin. 5. History of morbid obesity. The patient was just weighed. His weight is 450 pounds and 6 ounces. He continues to drop his weight with diuresis. 6. History of kidney stones, history of left hydronephrosis, status post left ureteral stent. This was visualized on a previous CAT scan and appears to be stable. 7. History of hyperphosphatemia. The patient should be maintained on a renal diet. I will start the patient on binder therapy as his phosphorus level has increased to 6.7. PLAN: 1. Continue to diurese the patient. 2. Continue to monitor potassium levels. If potassium level goes above 4, discontinue Aldactone. 3. Continue p.o. Zaroxolyn and p.o. Lasix. 4. Emphasize to staff accurate I's and O's and daily weights every morning. 5. Continue chronic anticoagulation for atrial fibrillation and patient remains rate controlled. 6. In light of the fact that his BUN and creatinine are slightly elevated from diuresis, continue to follow labs on a regular basis. Sean Reich MD
[2018-07-28] MEDS: Digoxin 125 mcg (0.125 mg) Tab PO SCH (13:04)
[2018-07-28 13:13] VITALS: PULSE 62
--- NOTE | 2018-07-28 23:54 | DS ---
HISTORY OF PRESENT ILLNESS: Patient is 37 years old seen and examined, lying in bed, seems to be comfortable. Leg swelling is better. Shortness of breath is better when resting, but severe short of breath when he walks. His pulse ox is 96% on room air. PHYSICAL EXAMINATION: GENERAL: He is awake, alert, oriented, and communicative. VITAL SIGNS: He is afebrile, pulse 70, respirations 18, and blood pressure 124/66. LUNGS: Bilateral fair airflow. No rhonchi or crackle. HEART: S1 and S2 audible. ABDOMEN: Soft, obese, and nontender. No rebound. No guarding. NEUROLOGIC: Patient is awake, alert, and oriented. Able to communicate. EXTREMITIES: Bilateral legs, no edema. LABORATORY DATA: WBC 12.5, hemoglobin 14, hematocrit 44, and platelets 325. Chemistry: Sodium 131, potassium 3.7, chloride 88, CO2 of 31, BUN 60, creatinine 2.0, and blood sugar of 103. ASSESSMENT: 1. Morbid obesity. 2. Cardiomyopathy. 3. Left ureteric stone. 4. Hypertension. 5. Chronic recurrent pancreatitis. 6. Status post cholecystectomy. PLAN: Patient had discussion with Dr. Summers, who is willing to take care of him as outpatient. The patient and Dr. Summers they exchanged their phone numbers and they are going to stay in touch. Dr. Summers will make arrangement for intraureteral lithotripsy. Since the patient is overweight, external shockwave radiation lithotripsy is not doable in patient because of his weight and that ESWL machine cannot hold patients more than 250 pounds. We also had discussion with him about consulting bariatric surgery, for that he is given referral to see bariatric group in [place]. He is advised to take care of both issues including nephrolithiasis and his morbid obesity, he will get a consultation in [place] for possible bariatric surgery and weight loss that will benefit him for his other issues including cardiomyopathy and COPD. So, he will be discharged today and he will follow with Dr. Don and myself as outpatient. Sammy Santiago MD [facility] # [phone]
--- NOTE | 2018-07-30 08:02 | PN ---
DATE: 07/27/2018 SUBJECTIVE: The patient is 37 years old, seen and examined. Complained of left flank pain. Complained of shortness of breath. Getting diuretics. Discussed with the patient different linnea and con of bariatric surgery. The patient also needs stent replaced. PHYSICAL EXAMINATION: GENERAL: On examination today, he is awake, alert, oriented, able to communicate. VITAL SIGNS: He is afebrile, pulse 77, respirations 18, blood pressure 122/63. LUNGS: Bilateral fair airflow. No rhonchi or crackle. HEART: S1 and S2 audible. ABDOMEN: Soft, obese, nontender. No rebound. No guarding. NEUROLOGICAL: He is awake, alert, oriented, communicative. EXTREMITIES: Bilateral leg, +1 edema. LABORATORY EXAM: Urine cultures are negative. ASSESSMENT: 1. Cardiomyopathy. 2. History of hypertension. 3. Bilateral leg edema. 4. History of nephrolithiasis. 5. Intermittent pancreatitis. 6. Acute on chronic renal failure. 7. Morbid obesity. PLAN: The patient is asking for a second opinion. Dr. Summers will be consulted to address his nephrolithiasis issue. Once he is stabilized, he will be discharged. I referred to [facility]. Sammy Santiago MD
--- NOTE | 2018-07-31 08:29 | CON ---
DATE: 07/27/2018 REASON FOR CONSULTATION: Urolithiasis. HISTORY OF PRESENT ILLNESS: Mr. Leblanc is a very pleasant gentleman with multiple medical issues. He has CHF and renal insufficiency. He has stone disease. He is admitted to the hospital under the care of Dr. Santiago. He is known to have stone disease. He previously had seen Dr. Lange quite some time ago. The patient has what . Urology is consulted for further recommendations. PAST MEDICAL HISTORY AND PAST SURGICAL HISTORY: As listed in the chart. Multiple problems. A 37-year-old patient of Dr. Santiago. REVIEW OF SYSTEMS: As listed above, otherwise noncontributory now. He does have shortness of breath and difficulty breathing sometimes. PHYSICAL EXAMINATION: GENERAL: A well-nourished male in no apparent distress. Weak body habitus noted. VITAL SIGNS: . ABDOMEN: Overall soft. GENITOURINARY: Further deferred. No rectal . LABORATORY DATA: See chart. DIAGNOSES: Urolithiasis, hematuria, renal insufficiency, congestive heart failure and leukocytosis. ASSESSMENT AND PLAN: In summary, a very pleasant gentleman. He is currently 37 years old. He has multiple medical issues. From a urology standpoint, we need to repeat imaging. I did discuss with him, nothing else we should if the stent is get the stent out even that may prove difficult. In terms of stone treatment, we need to look at the stone burden, stone volume and then make further recommendations as planned. From a urology standpoint, he will be cleared for discharge and we will recommend outpatient followup when he is medically stable. I spoke to the patient. I also spoke to Dr. Love about the patient. Most likely I am going to try to recommend referral to [facility] for his large stone burden, but in the meantime we will help the patient by changing the stent locally and be able to help him initially. Juan Ramon Summers MD
== END 2018-07-28 16:13 | disposition home or self-care (01) | DRG 291 ==
LOC: ED 14:33 → ERH 15:39 → 2RSO 17:49 → 5RSO 07-25 14:27
PROVIDERS: ADMIT Internal Medicine; ATTEND Internal Medicine
DX: I13.0 Hypertensive heart and chronic kidney disease with heart failure and stage 1 through stage 4 chronic kidney disease, or unspecified chronic kidney disease (principal); I50.23 Acute on chronic systolic (congestive) heart failure; N13.2 Hydronephrosis with renal and ureteral calculous obstruction; K86.0 Alcohol-induced chronic pancreatitis; Z68.44 Body mass index [BMI] 60.0-69.9, adult; N17.9 Acute kidney failure, unspecified; T50.2X5A Adverse effect of carbonic-anhydrase inhibitors, benzothiadiazides and other diuretics, initial encounter; I42.6 Alcoholic cardiomyopathy; G47.30 Sleep apnea, unspecified; E11.22 Type 2 diabetes mellitus with diabetic chronic kidney disease; N18.3 Chronic kidney disease, stage 3 (moderate); E11.51 Type 2 diabetes mellitus with diabetic peripheral angiopathy without gangrene; I48.2 Chronic atrial fibrillation; I25.10 Atherosclerotic heart disease of native coronary artery without angina pectoris; I08.1 Rheumatic disorders of both mitral and tricuspid valves; I27.20 Pulmonary hypertension, unspecified; E66.01 Morbid (severe) obesity due to excess calories; K21.9 Gastro-esophageal reflux disease without esophagitis; E83.39 Other disorders of phosphorus metabolism; K27.9 Peptic ulcer, site unspecified, unspecified as acute or chronic, without hemorrhage or perforation; F17.210 Nicotine dependence, cigarettes, uncomplicated; E78.5 Hyperlipidemia, unspecified; Z96.0 Presence of urogenital implants; Z79.01 Long term (current) use of anticoagulants; Z91.14 Patient's other noncompliance with medication regimen; Z95.5 Presence of coronary angioplasty implant and graft

== ENCOUNTER 2018-08-08 21:40 | Inpatient (IN) | payer BC ==
[2018-08-08 21:45] VITALS: BMI 56.2
[2018-08-08] MEDS ORDERED: Morphine 4 mg/ml ISec IVP STA (22:24)
--- NOTE | 2018-08-08 22:31 | ED PDOC ---
Arrival/HPI - General Chief Complaint: Abdominal Pain Time Seen by Provider: 08/08/18 22:08 Historian: Patient - Critical Care Critical Care Minutes: 30 minutes - History of Present Illness Narrative History of Present Illness (Text): 08/08/18 22:28 37 year old male with a past medical history of non-ischemic cardiomyopathy, diabetes, hypertension, hyperlipidemia, nephrolithiasis, and chronic pancreatitis who comes in today for left flank pain associated with nausea and vomiting since Monday. Patient describes the pain as sharp in nature starting the lower left back and radiating to the abdomen. Of note, patient has a stent placed in the left kidney over three months ago by Dr. Love. However, patient changed specialist to Dr. Parr. Patient also reports black tarry stools for the past two days. Patient denies any fevers, chills, syncopal episodes, changes in vision, or any other complaints. PMD:Dr. Maldonado Past medical history: non-ischemic cardiomyopathy, diabetes, hypertension, hyperlipidemia, nephrolithiasis, chronic pancreatitis Surgical history: Cholecystectomy Social history: 1/2 ppd x 20 years. Patient former alcohol abuse. Denies illicit drugs Meds: See 08/08/18 23:45 Time/Duration: < week Symptom Onset: Gradual Symptom Course: Unchanged Quality: Stabbing Severity Level: 6 Activities at Onset: Rest Context: Sitting Past Medical History - Provider Review Nursing Documentation Reviewed: Yes - Past History Past History: Non-Contributing - Infectious Disease Hx of Infectious Diseases: None - Tetanus Immunization Tetanus Immunization: Unknown - Cardiac Hx Cardiac Disorders: Yes (Non ischemic cardiomyopathy, A fib on Eliquis) Hx Congestive Heart Failure: Yes (on Digoxin) - Pulmonary Hx Respiratory Disorders: Yes Hx Sleep Apnea: (pt denies sleep apnea) Other/Comment: trouble sleeping due to sob - Neurological Hx Neurological Disorder: No - HEENT Hx HEENT Disorder: No - Renal Hx Renal Disorder: Yes (hydronephrosis, L ureteral pigtail stent) Hx Kidney Stones: Yes Hx Pyelonephritis: Yes Hx Renal Failure: Yes Other/Comment: left calculus 11/2017 - Endocrine/Metabolic Hx Endocrine Disorders: No - Hematological/Oncological Hx Blood Disorders: No - Integumentary Hx Dermatological Disorder: Yes (foul smelling body odor) Other/Comment: pt refusing to have skin touched but did notice some dry skin to feet - Musculoskeletal/Rheumatological Hx Musculoskeletal Disorders: No - Gastrointestinal Hx Gastrointestinal Disorders: Yes (morbidly obese, abd pain) Hx Diverticulitis: Yes Hx Gall Bladder Disease: Yes Hx Gastroesophageal Reflux: Yes Hx Pancreatitis: Yes (quit drinking since pancreatitis) - Genitourinary/Gynecological Hx Genitourinary Disorders: Yes (urinary retention, dysuria) Hx Hematuria: Yes Hx Urinary Tract Infection: Yes Other/Comment: pylonephritis - Psychiatric Hx Psychophysiologic Disorder: Yes Hx Substance Use: No Other/Comment: etoh in the past none since pancreatitis - Past Surgical History Past Surgical History: No Previous - Surgical History Hx Cholecystectomy: Yes Other/Comment: left ureteral pigtail stent and replacement, cysto - Anesthesia Hx Anesthesia: Yes Hx Anesthesia Reactions: Yes (NAUSEA) Hx Malignant Hyperthermia: No - Suicidal Assessment Feels Threatened In Home Enviroment: No Family/Social History - Physician Review Nursing Documentation Reviewed: Yes Family/Social History: No Known Family HX Smoking Status: Heavy Smoker > 10 Cigarettes Daily Hx Alcohol Use: No Hx Substance Use: No Hx Substance Use Treatment: No Allergies/Home Meds Allergies/Adverse Reactions: Allergies LUZ Inhibitors Allergy (Severe, Verified 07/22/18 14:37) ANGIOEDEMA Home Medications: Home Meds Medication Instructions Recorded Confirmed Amylase/Lipase/Protease [Pancrease 3 tab PO AC 12/13/17 07/22/18 [id number] [id number] [id number] U] Review of Systems - Review of Systems Constitutional: Normal. absent: Fatigue, Weight Change Eyes: Normal. absent: Vision Changes, Photophobia ENT: Normal. absent: Hearing Changes, Tinnitus Respiratory: Normal. absent: SOB, Cough, Sputum Cardiovascular: Normal. absent: Chest Pain, Palpitations, Syncope Gastrointestinal: Abdominal Pain, Stool Changes, Diarrhea, Nausea, Vomiting Skin: Normal. absent: Rash, Pruritis, Other Neurological: Normal. absent: Headache, Dizziness Endocrine: Normal. absent: Diaphoresis, Polyuria Hemo/Lymphatic: Normal. absent: Adenopathy, Easy Bleeding Psychiatric: Normal. absent: Anxiety, Depression Physical Exam Vital Signs Temp Pulse Resp BP Pulse Ox 08/08/18 21:54 98.5 F 70 19 115/52 L 95 Temperature: Afebrile Blood Pressure: Normal Pulse: Regular Respiratory Rate: Normal Appearance: Positive for: Well-Appearing, Non-Toxic, Comfortable. No: Ill- Appearing Pain Distress: Mild Mental Status: Positive for: Alert and Oriented X 3. No: Confused - Systems Exam Head: Present: Atraumatic, Normocephalic. No: Abrasion Pupils: Present: PERRL. No: Sluggish Extroacular Muscles: Present: EOMI. No: Gaze Palsy Conjunctiva: Present: Normal. No: Injected Mouth: Present: Moist Mucous Membranes. No: Dry, Normal Teeth Neck: Present: Normal Range of Motion. No: Meningeal Signs, JVD Respiratory/Chest: Present: Clear to Auscultation, Good Air Exchange Cardiovascular: Present: Regular Rate and Rhythm, Normal S1, S2. No: Murmurs, Tachycardic Abdomen: Present: Tenderness, Normal Bowel Sounds. No: McBurney's Point Tender, Ostomy Tubes Upper Extremity: Present: Edema. No: Erythema, Neurovascularly Intact Lower Extremity: Present: Edema. No: Normal Inspection Neurological: Present: CN II-XII Intact, Speech Normal. No: Normal Cerebellar Funct, Gait Normal Skin: Present: Dry, Normal Color Psychiatric: Present: Alert, Oriented x 3, Normal Insight Medical Decision Making ED Course and Treatment: 08/08/18 22:36 37 year old female with a past medical history of nephrolithiasis, chronic pancreatitis, hypertension, diabetes, hyperlipidemia and non-ischemia cardiomyopathy presents with nausea, vomiting and black stools. Plan: EKG CXR CBC CMP Troponin Renal U/S Zofran 4MG IVP Morphin 4mg IVP STAT Protonix 40mg IVP STAT Type and Screen 08/09/18 00:30 Renal u/s: negative for nephrollithiasis and hydronephrosis. 08/09/18 01:20 Dr. Valderrama call and accepted the patient to her service. Troponin: .04 Patient admitted to Telemetry Admission - RAD Interpretation Radiology Orders: 08/08/18 22:21 RENAL [US] Stat 08/08/18 22:26 CHEST PORTABLE [RAD] Stat - EKG Interpretation EKG Interpretation (Text): 08/08/18 23:44 Atrial fibrillation @101bpm. Negative ST elevations. Interpreted by ED Physician: Yes Type: 12 lead EKG - Medication Orders Current Medication Orders: Discontinued Medications Morphine Sulfate (Morphine) 4 mg IVP STAT STA Stop: 08/08/18 22:25 Ondansetron HCl (Zofran Inj) 4 mg IVP STAT STA Stop: 08/08/18 22:26 Disposition/Present on Arrival - Present on Arrival Any Indicators Present on Arrival: No History of DVT/PE: No History of Uncontrolled Diabetes: No Urinary Catheter: No History of Decub. Ulcer: No History Surgical Site Infection Following: None - Disposition Have Diagnosis and Disposition been Completed?: Yes Diagnosis: Abdominal pain Disposition: HOSPITALIZED Disposition Time: 02:00 Patient Problems: Current Active Problems Problem Status Onset Abdominal pain Acute Condition: STABLE
[2018-08-08 23:12] LABS: BASO # 0.01 K/mm3 (0.0-2.0); BASO % 0.1 % (0.0-3.0); EOS % 0.1 % (1.5-5.0); GRAN # 11.06 (1.4-6.5); GRAN % 79.3 % (50.0-68.0); LYMPH # 1.7 (1.2-3.4); LYMPH % 12.3 % (22.0-35.0); MEAN CELL VOLUME 92.4 fl (80.0-105.0); MEAN CORPUSCULAR HEMOGLOBIN 31.4 pg (25.0-35.0); MEAN CORPUSCULAR HGB CONC 33.9 g/dl (31.0-37.0); MONO # 1.2 (0.1-0.6); MONO % 8.2 % (1.0-6.0); RBC 5.39 10^6/uL (3.5-6.1); RED CELL DISTRIBUTION WIDTH 15.1 % (11.5-14.5)
[2018-08-08 23:17] LABS: HEMOGLOBIN 16.9 g/dL (14.0-18.0)
[2018-08-08 23:19] LABS: ALBUMIN 4.3 g/dL (3.0-4.8); CALCIUM 9.7 mg/dL (8.4-10.5)
[2018-08-08 23:31] LABS: TROPONIN I 0.04 ng/mL
[2018-08-09] MEDS: Morphine 2 mg/ml ISec IVP PRN ×2 (01:01→04:30)
[2018-08-09] MEDS: Cefepime 1gm in NS 100ml 1 GM/100 ML BAG IVPB SCH ×2 (01:01→09:54)
--- NOTE | 2018-08-09 09:16 | RAD ---
Date of service: 08/08/2018 HISTORY: chf, sob COMPARISON: No prior. FINDINGS: LUNGS: Is severe pulmonary venous congestion, asymmetric more in the right lung. There is also consolidation with air bronchogram in the right lower lobe. PLEURA: No pleural effusions or pneumothorax. CARDIOVASCULAR: There is severe cardiomegaly. No aortic atherosclerotic calcification present. OSSEOUS STRUCTURES: Within normal limits for the patient's age. VISUALIZED UPPER ABDOMEN: Normal. OTHER FINDINGS: None. IMPRESSION: Right lower lobe pneumonia. Severe pulmonary congestion in the right lung.
[2018-08-09] MEDS ORDERED: HYDROmorphone 1 mg/ml ISec IVP STA (09:30)
--- NOTE | 2018-08-09 09:58 | CARD ---
APPROVED REPORT Date of service: 08/08/2018 EKG Measurement Heart [id number] <Conclusion> A flutter with Variable Block. Nonspecific intraventricular block Abnormal ECG
--- NOTE | 2018-08-09 10:11 | CP.PCM.CON ---
<Kate Mullins - Last Filed: 08/09/18 13:12> History of Present Illness - History of Present Illness History of Present Illness: Gastroenterology Fellow/PGY6 Consult Note 37 year old morbidly obese male with PMH of chronic pancreatitis on Pancrease, renal insufficiency, Afib on Eliquis, and nonischemic cardiomyopathy presenting with abdominal pain and dark stools. Patient notes chronic epigastric pain radiating to back but admits to worsening of baseline pain for the last two days, pain scale 10/10. Endorses daily black, oily stool for the last two days that he notes occurs when his pain exacerbated. Denies nausea, vomiting, hematemesis, acid reflux, heartburn, diarrhea, constipation, melena, hematochezia, or unintentional weight loss. Prior colonoscopy 2015 with fair prep with recommend outpatient repeat for which patient has not followed up. Family History- denies stomach cancer, colon cancer Social History- denies tobacco, alcohol, illicit drug use Surgical History- left ureteral stent placement, cholecystectomy, EUS 07/2016(GB sludge/stone, tortuous CBD normal) Review of Systems - Review of Systems Review of Systems: 12-point review of systems negative except for as above Past Patient History - Infectious Disease Hx of Infectious Diseases: None - Tetanus Immunizations Tetanus Immunization: Unknown - Past Medical History & Family History Past Medical History?: Yes - Past Social History Smoking Status: Heavy Smoker > 10 Cigarettes Daily - CARDIAC Hx Cardiac Disorders: Yes (Non ischemic cardiomyopathy, A fib on Eliquis) Hx Congestive Heart Failure: Yes (on Digoxin) - PULMONARY Hx Respiratory Disorders: Yes Hx Sleep Apnea: (pt denies sleep apnea) Other/Comment: trouble sleeping due to sob - NEUROLOGICAL Hx Neurological Disorder: No - HEENT Hx HEENT Problems: No - RENAL Hx Chronic Kidney Disease: Yes (hydronephrosis, L ureteral pigtail stent) Hx Kidney Stones: Yes Hx Pyelonephritis: Yes Hx Renal Failure: Yes Other/Comment: left calculus 11/2017 - ENDOCRINE/METABOLIC Hx Endocrine Disorders: No - HEMATOLOGICAL/ONCOLOGICAL Hx Blood Disorders: No - INTEGUMENTARY Hx Dermatological Problems: Yes (foul smelling body odor) Other/Comment: pt refusing to have skin touched but did notice some dry skin to feet - MUSCULOSKELETAL/RHEUMATOLOGICAL Hx Musculoskeletal Disorders: No - GASTROINTESTINAL Hx Gastrointestinal Disorders: Yes (morbidly obese, abd pain) Hx Diverticulitis: Yes Hx Gall Bladder Disease: Yes Hx Gastroesophageal Reflux: Yes Hx Pancreatitis: Yes (quit drinking since pancreatitis) - GENITOURINARY/GYNECOLOGICAL Hx Genitourinary Disorders: Yes (urinary retention, dysuria) Hx Hematuria: Yes Hx Urinary Tract Infection: Yes Other/Comment: pylonephritis - PSYCHIATRIC Hx Psychophysiologic Disorder: Yes Hx Substance Use: No Other/Comment: etoh in the past none since pancreatitis - SURGICAL HISTORY Hx Cholecystectomy: Yes Other/Comment: left ureteral pigtail stent and replacement, cysto - ANESTHESIA Hx Anesthesia: Yes Hx Anesthesia Reactions: Yes (NAUSEA) Hx Malignant Hyperthermia: No Meds Allergies/Adverse Reactions: Allergies Allergy/AdvReac Type Severity Reaction Status Date / Time LUZ Inhibitors Allergy Severe ANGIOEDEMA Verified 07/22/18 14:37 - Medications Medications: Current Medications Hydromorphone HCl (Dilaudid) 1 mg IVP Q4H PRN PRN Reason: Pain, moderate (4-7) Cefepime HCl (Maxipime 1gm) 1 gm in 100 mls @ 100 mls/hr IVPB Q12 ELSIE; Protocol Last Admin: 08/09/18 09:54 Dose: 100 mls/hr Pantoprazole Sodium (Protonix Inj) 40 mg IVP Q12 ELSIE Last Admin: 08/09/18 09:55 Dose: 40 mg Physical Exam - Constitutional Appears: Non-toxic, No Acute Distress - Head Exam Head Exam: ATRAUMATIC, NORMOCEPHALIC - Eye Exam Eye Exam: EOMI, PERRL. absent: Scleral icterus Pupil Exam: PERRL. absent: Miosis, Mydriatic - ENT Exam ENT Exam: Mucous Membranes Moist, Normal Oropharynx - Neck Exam Neck exam: Positive for: Full Rom, Normal Inspection - Respiratory Exam Respiratory Exam: Clear to Auscultation Bilateral. absent: Rales, Rhonchi, Wheezes - Cardiovascular Exam Cardiovascular Exam: RRR, +S1, +S2. absent: Gallop, Rubs - GI/Abdominal Exam GI & Abdominal Exam: Normal Bowel Sounds, Soft, Tenderness. absent: Distended, Firm, Guarding, Organomegaly, Rebound, Rigid Additional comments: epigastric tenderness to palpation - Rectal Exam Additional comments: refused - Extremities Exam Extremities exam: Positive for: normal inspection, pedal edema - Neurological Exam Neurological exam: Alert - Psychiatric Exam Psychiatric exam: Normal Affect, Normal Mood - Skin Skin Exam: Dry, Intact, Normal Color, Warm Results - Vital Signs Recent Vital Signs: Last Vital Signs Temp 98 F 08/09/18 06:00 Pulse 130 H 08/09/18 06:00 Resp 20 08/09/18 06:00 BP 113/84 08/09/18 06:00 Pulse Ox 97 08/09/18 02:26 - Labs Result Diagrams: 08/08/18 22:44 08/08/18 22:44 Labs: Laboratory Results - last 24 hr 08/08/18 08/08/18 08/08/18 22:44 22:44 22:44 WBC 14.0 H RBC 5.39 Hgb 16.9 D Hct 49.8 MCV 92.4 MCH 31.4 MCHC 33.9 RDW 15.1 H Plt Count 297 MPV 10.0 Gran % 79.3 H Lymph % (Auto) 12.3 L [place] % (Auto) 8.2 H Eos % (Auto) 0.1 L Baso % (Auto) 0.1 Gran # 11.06 H Lymph # (Auto) 1.7 [place] # (Auto) 1.2 H Eos # (Auto) 0.0 Baso # (Auto) 0.01 Sodium 134 Potassium 4.2 Chloride 97 L Carbon Dioxide 28 Anion Gap 13 BUN 28 H Creatinine 1.6 H Est GFR ( Amer) 59 Est GFR (Non-Af Amer) 48 Random Glucose 118 H Calcium 9.7 Total Bilirubin 0.8 AST 28 ALT 20 Alkaline Phosphatase 89 Troponin I 0.04 Total Protein 8.6 H Albumin 4.3 Globulin 4.3 Albumin/Globulin Ratio 1.0 L Lipase 174 Blood Type Antibody Screen BBK History Checked 08/08/18 23:20 WBC RBC Hgb Hct MCV MCH MCHC RDW Plt Count MPV Gran % Lymph % (Auto) [place] % (Auto) Eos % (Auto) Baso % (Auto) Gran # Lymph # (Auto) [place] # (Auto) Eos # (Auto) Baso # (Auto) Sodium Potassium Chloride Carbon Dioxide Anion Gap BUN Creatinine Est GFR ( Amer) Est GFR (Non-Af Amer) Random Glucose Calcium Total Bilirubin AST ALT Alkaline Phosphatase Troponin I Total Protein Albumin Globulin Albumin/Globulin Ratio Lipase Blood Type O NEGATIVE Antibody Screen Negative BBK History Checked Patient has bt Assessment & Plan - Assessment and Plan (Free Text) Assessment: 37 year old morbidly obese male with PMH of chronic pancreatitis on Pancrease, renal insufficiency, Afib on Eliquis, and nonischemic cardiomyopathy presenting with abdominal pain and dark stools. Active treatment of epigastric pain with endorsed black stools. Prior colonoscopy 2016 with fair prep with recommend outpatient repeat for which patient has not followed up. Plan: -refused rectal exam -obtaing FOBT -hemodynamically stable -H/H hemoconcentrated -monitor H/H trend -continue PPI ACB and zantac QHS -obtain anesthesia evaluation to assess risk prior to endoscopic evaluation -will benefit from outpatient repeat colonoscopy due to fair prep -continue Pancreaae [id number] Lipase TID with meals -will follow clinical course <Souleymane Choe V - Last Filed: 08/09/18 23:24> Meds - Medications Medications: Current Medications Amylase (Pancrease 40861 U-5000 [id number] U) 25,000 unit PO TID [facility] Last Admin: 08/09/18 17:41 Dose: 25,000 unit Apixaban (Eliquis) 5 mg PO Q12 [facility]; Protocol Last Admin: 08/09/18 22:02 Dose: 5 mg Carvedilol (Coreg) 3.125 mg PO BID [facility] Last Admin: 08/09/18 17:41 Dose: 3.125 mg Digoxin (Digoxin) 0.125 mg PO 1400 [facility] Last Admin: 08/09/18 14:05 Dose: 0.125 mg Famotidine (Pepcid) 40 mg PO HS [facility] Last Admin: 08/09/18 22:02 Dose: 40 mg Hydromorphone HCl (Dilaudid) 1 mg IVP Q4H PRN PRN Reason: Pain, moderate (4-7) Last Admin: 08/09/18 22:02 Dose: 1 mg Ceftriaxone Sodium (Rocephin 1 Gram Ivpb) 1 gm in 100 mls @ 100 mls/hr IVPB DAILY [facility]; Protocol Last Admin: 08/09/18 17:42 Dose: 100 mls/hr Sodium Chloride (Sodium Chloride 0.9%) 1,000 mls @ 50 mls/hr IV .Q20H [facility] Stop: 08/10/18 07:00 Last Admin: 08/09/18 17:42 Dose: 50 mls/hr Levalbuterol HCl (Xopenex) 1.25 mg IH [id number] ELSIE Last Admin: 08/09/18 19:43 Dose: 1.25 mg Ondansetron HCl (Zofran Inj) 4 mg IVP Q6H PRN PRN Reason: Nausea/Vomiting Last Admin: 08/09/18 17:43 Dose: 4 mg Pantoprazole Sodium (Protonix Ec Tab) 40 mg PO 0600 [facility]SIE Verapamil HCl (Calan Sr Tab) 120 mg PO DAILY [facility] Last Admin: 08/09/18 12:30 Dose: 120 mg Verapamil HCl (Verapamil Inj) 2.5 mg IVP Q6H PRN PRN Reason: for HR above 130 Results - Vital Signs Recent Vital Signs: Last Vital Signs Temp 97.6 F 08/09/18 18:00 Pulse 62 08/09/18 18:00 Resp 18 08/09/18 18:00 BP 124/92 H 08/09/18 18:00 Pulse Ox 97 08/09/18 02:26 - Labs Result Diagrams: 08/08/18 22:44 08/08/18 22:44 Labs: Laboratory Results - last 24 hr 08/08/18 08/08/18 08/08/18 22:44 22:44 22:44 WBC 14.0 H RBC 5.39 Hgb 16.9 D Hct 49.8 MCV 92.4 MCH 31.4 MCHC 33.9 RDW 15.1 H Plt Count 297 MPV 10.0 Gran % 79.3 H Lymph % (Auto) 12.3 L [place] % (Auto) 8.2 H Eos % (Auto) 0.1 L Baso % (Auto) 0.1 Gran # 11.06 H Lymph # (Auto) 1.7 [place] # (Auto) 1.2 H Eos # (Auto) 0.0 Baso # (Auto) 0.01 Sodium 134 Potassium 4.2 Chloride 97 L Carbon Dioxide 28 Anion Gap 13 BUN 28 H Creatinine 1.6 H Est GFR ( Amer) 59 Est GFR (Non-Af Amer) 48 Random Glucose 118 H Calcium 9.7 Total Bilirubin 0.8 AST 28 ALT 20 Alkaline Phosphatase 89 Troponin I 0.04 Total Protein 8.6 H Albumin 4.3 Globulin 4.3 Albumin/Globulin Ratio 1.0 L Lipase 174 Urine Color Urine Appearance Urine pH Ur Specific [place] Urine Protein Urine Glucose (UA) Urine Ketones Urine Blood Urine Nitrate Urine Bilirubin Urine Urobilinogen Ur Leukocyte Esterase Urine RBC Urine WBC Ur Epithelial Cells Urine Bacteria Hyaline Casts Coarse Granular Casts Urine Other Blood Type Antibody Screen BBK History Checked 08/08/18 08/09/18 23:20 18:07 WBC RBC Hgb Hct MCV MCH MCHC RDW Plt Count MPV Gran % Lymph % (Auto) [place] % (Auto) Eos % (Auto) Baso % (Auto) Gran # Lymph # (Auto) [place] # (Auto) Eos # (Auto) Baso # (Auto) Sodium Potassium Chloride Carbon Dioxide Anion Gap BUN Creatinine Est GFR ( Amer) Est GFR (Non-Af Amer) Random Glucose Calcium Total Bilirubin AST ALT Alkaline Phosphatase Troponin I Total Protein Albumin Globulin Albumin/Globulin Ratio Lipase Urine Color Yellow Urine Appearance Sl cloudy Urine pH 5.5 Ur Specific [place] >= 1.030 Urine Protein 30 H Urine Glucose (UA) Negative Urine Ketones Negative Urine Blood Moderate H Urine Nitrate Negative Urine Bilirubin Negative Urine Urobilinogen 0.2 Ur Leukocyte Esterase Small H Urine RBC 15 - 20 Urine WBC 5 - 10 Ur Epithelial Cells 0 - 2 Urine Bacteria Many Hyaline Casts 0 - 2 Coarse Granular Casts Trace Urine Other [place] Blood Type O NEGATIVE Antibody Screen Negative BBK History Checked Patient has bt Attending/Attestation - Attestation I have personally seen and examined this patient.: Yes I have fully participated in the care of the patient.: Yes I have reviewed all pertinent clinical information: Yes Notes (Text): This is an addendum to GI consult report dictated by the GI Fellow.The patient was seen and examined earlier. Medical records, lab studies, imagings were reviewed. Last 24 hours events reviewed. Agreed with the above treatment plan as outlined in GI Fellow 's notes with the addition of the following patient complains of episodes of dark stool Patient had an episode of small amount of vomiting blood complained episodes of abdominal pain hemoglobin remained stable On examination tenderness in the epigastric area Patient has multiple comorbidities Morbid obesity, CHF, chronic pancreatitis, history of diverticulitis renal stone recurrent urinary tract infection,CKD Would recommend EGD after anesthesiology evaluation Risk benefits alternatives explained patient fully understood 08/09/18 23:18
--- NOTE | 2018-08-09 10:15 | US ---
Date of service: 08/08/2018 PROCEDURE: Ultrasound of the Kidneys HISTORY: urteral stent placement COMPARISON: CT abdomen and pelvis from 07/22/2018. TECHNIQUE: Grayscale imaging was performed. FINDINGS: RIGHT KIDNEY: Measures: 11.6 cm. Normal in size, contour and echogenicity. No stone, solid mass lesion or hydronephrosis visualized. LEFT KIDNEY: Measures: 9.6 cm. Normal in size, contour and echogenicity. No stone, solid mass lesion or hydronephrosis visualized. OTHER FINDINGS: None. IMPRESSION: No hydronephrosis or nephrolithiasis.
[2018-08-09] MEDS: Verapamil 120 mg ER Tab PO SCH (12:30)
[2018-08-09] MEDS: Levalbuterol 1.25 MG/3 ML Inhal Soln UD IH SCH ×2 (13:29→19:43)
[2018-08-09] MEDS: Digoxin 125 mcg (0.125 mg) Tab PO SCH (14:05)
[2018-08-09] MEDS: HYDROmorphone 1 mg/ml ISec IVP PRN ×3 (14:06→22:02)
--- NOTE | 2018-08-09 15:16 | HP ---
DATE OF EXAM: 08/09/2018 HISTORY OF PRESENT ILLNESS: Patient is a 37 years old, came to emergency room because of his left flank pain. He state he vomited and there was blood in his vomitus, it happened only one time. Patient does have history of nephrolithiasis with hydronephrosis and has stent placed that was more than a month and half. Denies any chest pain, does get shortness of breath when he walks small distance. Patient states he has not been taking his usual medications for last couple of days, does complain of epigastric discomfort and vomiting. PAST MEDICAL HISTORY: Significant for: 1. Hypertension. 2. Nonischemic cardiomyopathy. 3. Morbid obesity. 4. Chronic kidney disease. 5. Nephrolithiasis. 6. Recurrent pancreatitis. 7. Gastritis. PAST SURGICAL HISTORY: Significant for: 1. Cholecystectomy. 2. History of paroxysmal AFib. ALLERGIES: HE IS ALLERGIC TO LUZ INHIBITORS THAT CAUSE HIM LIP SWELLING. SOCIAL HISTORY: He is single, lives with his parents, he used to be a heavy drinker, but quit since he got started getting sick. He still smokes, although he was very smoker in the past. REVIEW OF SYSTEMS: Significant for left flank pain and episode of hematuria and blood in the vomitus. PHYSICAL EXAMINATION GENERAL: He is awake, alert, oriented, able to communicate. VITAL SIGNS: He is afebrile, pulse 130, respirations 20, blood pressure 113/84. LUNGS: Bilateral fair airflow, decreased breath sounds at bases. Posteriorly breath sounds not appreciative because of his obesity. ABDOMEN: Soft, no tender, no rebound, no guarding, no hepatosplenomegaly. NEUROLOGIC: He is awake. alert, oriented. No sensory or motor deficits, answers appropriately, speech is normal. LABORATORY DATA: WBC 14, hemoglobin 16.9, hematocrit 49.8 and platelets of 297,000. Chemistry; sodium 134, potassium 4.2, chloride 97, CO2 of 28, BUN 28, creatinine 1.6 and blood sugar of 118. X-ray of chest, possible right lower lobe pneumonia, severe pulmonary congestion in the right lung. Renal sonogram; no hydronephrosis or nephrolithiasis seen. ASSESSMENT: 1. Left flank pain with hematuria with large urinary tract infection. 2. Leukocytosis. 3. Nonischemic cardiomyopathy. 4. History of paroxysmal atrial fibrillation. 5. Morbid obesity. 6. History of pancreatitis. PLAN: We will resume his medication, start him on nebulizer treatment, Cardiology evaluation has been requested, Dr. Don has been consulted also. Analgesics as needed. We can start him on liquid diet, but if he develops nausea or vomiting, we will discontinue even clear liquid diet also. Followup his electrolyte. I will request Dr. Summers to evaluate his left flank and probably he needs removal of stent. Sammy Santiago MD
[2018-08-09] MEDS ORDERED: Sodium Chloride 0.9% 1,000 ML IV SCH (17:00)
[2018-08-09] MEDS: Amylase/Lipase/Protease 5,000 Units ECC PO SCH (17:41)
[2018-08-09] MEDS: cefTRIAXone 1 gm 1 GM/100 ML BAG IVPB SCH (17:42)
[2018-08-09 18:14] LABS: PH,URINE 5.5 (4.7-8.0); URINE BILIRUBIN NEGATIVE (NEGATIVE); URINE BLOOD MODERATE (NEGATIVE); URINE GLUCOSE (UA) NEGATIVE (NEGATIVE); URINE LEUKOCYTE ESTERASE SMALL Leu/uL (NEGATIVE); URINE PROTEIN 30 mg/dL (<30 mg/dL); URINE UROBILINOGEN 0.2 E.U./dL (<1 E.U./dL)
[2018-08-09 18:15] LABS: URINE APPEARANCE SL CLOUDY (CLEAR); URINE COLOR YELLOW (YELLOW)
[2018-08-09 18:19] LABS: URINE RBC 15 - 20 /hpf (0-2)
[2018-08-09 18:20] LABS: URINE BACTERIA MANY (NEG)
[2018-08-09 18:21] LABS: URINE COARSE GRANULAR CAST TRACE /hpf (0-2); URINE EPITHELIAL CELLS 0 - 2 /hpf (0-5); URINE HYALINE CAST 0 - 2 /hpf
--- NOTE | 2018-08-09 19:37 | CON ---
DATE: 08/09/2019 REASON FOR CONSULTATION: Chronic kidney disease stage II/III, left flank pain, blood in the urine. HISTORY OF PRESENTING ILLNESS: A 37-year-old male with morbid obesity, severe hypertension, hypertensive heart disease, cardiomyopathy, sleep apnea, history of left hydronephrosis, history of left ureteral stent, left pyelonephritis, recurrent UTI, was recently discharged from [facility] when he was admitted with shortness of breath, decompensated congestive heart failure. He presented to the emergency room yesterday with complaints of vomiting for 2 days, reportedly he vomited blood. He also complains of low back pain on the left side, he also reports blood in the urine? In the emergency room, he was found to be somewhat hypotensive initially, blood pressure was 115/52. He was found to be afebrile. His blood work showed a WBC count of 14,000, hemoglobin of 16.9, and BUN of 28 with a creatinine of 1.6. PAST MEDICAL AND SURGICAL HISTORY: Morbid obesity, severe hypertension, hypertensive heart disease, cardiomyopathy, left hydronephrosis, left ureteral stent, left pyelonephritis, recurrent UTI, sleep apnea, chronic kidney disease stage II/III, CHF, multiple episodes of pancreatitis, narcotic dependence. FAMILY HISTORY: Hypertension. SOCIAL HISTORY: Active smoker, denies alcohol use, no IV drug abuse. ALLERGIES: LUZ INHIBITORS. MEDICATIONS AT HOME: Calan 120, digoxin 0.125, Coreg 3.125 b.i.d., Eliquis 5 b.i.d., metolazone 2.5 b.i.d., Aldactone 25 b.i.d., Lasix 80 b.i.d. The patient reports he was not taking any medications since Monday. PHYSICAL EXAMINATION: GENERAL: Morbidly obese, young male, sitting in bed, in no acute distress currently. VITAL SIGNS: Blood pressure 130/83, heart rate 56, respiratory rate 16, temperature 97.6. HEENT: Normocephalic, atraumatic, positive pallor. NECK: Supple, no JVD. LUNGS: Bilateral equal entry, bilateral equal expansion, no rales. CARDIAC: S1, S2, regular rate rhythm, no murmur, no rub. ABDOMEN: Obese, distended, soft, nontender, bowel sounds present, the patient has lower left back pain not left flank pain and tenderness. EXTREMITIES: No lower extremity edema. INTAKE AND OUTPUT: Not charted. LABORATORY DATA: WBC 14, hemoglobin 16.9, hematocrit 49.8, platelets 297. Sodium 134, potassium 4.2, chloride 97, CO2 of 28, BUN 28, creatinine 1.6, glucose 118, calcium 9.7, total protein 8.6, albumin 4.3. Renal ultrasound, no hydronephrosis. CURRENT MEDICATIONS: Calan 120, Coreg 3.125, digoxin 0.125, Dilaudid, Eliquis, Pepcid, Protonix, ceftriaxone 1 g. Xopenex. ASSESSMENT/PLAN: 1. Blood in the urine? Currently, urine at bedside appears clear. There is no urinalysis documented 2. Vomiting of blood,? Hemoglobin is 16. 3. History of severe hypertension, the patient was relatively hypotensive at the time of presentation, prerenal. 4. Stable chronic kidney disease stage II/III. 5. Morbid obesity. 6. History of left hydronephrosis, left ureteral stent, currently no hydronephrosis, the patient has fixated that his pain is because of the stent, although the pain is much lower. PLAN: 1. Hold diuretics for the time being. 2. Check urinalysis. 3. Push p.o. fluids. 4. Repeat CBC for WBC count. 5. ?Discontinue empiric antibiotics. 6. Monitor daily labs. 7. Limit pain medication. Angelica Don MD
--- NOTE | 2018-08-10 00:14 | CON ---
DATE: 08/09/2018 SERVICE: Cardiology. REASON FOR CONSULTATION: Cardiac evaluation, history of atrial fibrillation, history of nonischemic cardiomyopathy, admitted with abdominal pain. HISTORY OF PRESENT ILLNESS: A 37-year-old male with past medical history significant for nonischemic cardiomyopathy, morbid obesity, chronic kidney disease, nephrolithiasis, recurrent pancreatitis, history of alcohol abuse, history of tobacco abuse, who came in complaining of one episode of blood in vomitus and hematuria, also abdominal pain, and flank pain. Denies any chest pain, shortness of breath, or any palpitation. PAST MEDICAL HISTORY: Significant for hypertension, nonischemic cardiomyopathy, nonobstructive coronary artery disease, morbid obesity, chronic kidney disease, nephrolithiasis, stent in the ureter, recurrent pancreatitis, and gastritis. PAST SURGICAL HISTORY: Significant for cholecystectomy in the past. PREVIOUS CARDIAC WORKUP: As follows; the patient had a cardiac catheterization 4 years ago at [facility] and was told normal coronaries. The patient had echo on 07/05/2017 that shows ejection fraction of 40%, RV systolic pressure of 18, trace mitral regurgitation, and trace tricuspid regurgitation. Repeat echo done on 04/25/2018 that shows four chamber dilatation, cardiomyopathy, ejection fraction 35% to 40%. At that time, patient was on Primacor. More recently, patient had MUGA scan on 08/04/2017 that showed ejection fraction of 55%. Last echo on 04/25/2018 shows moderate MR, moderate TR, RV systolic pressure 51. Baseline creatinine the patient has 1.5 to 1.8. CURRENT MEDICATIONS: The patient is taking at home metolazone 2.5 mg, verapamil 120, spironolactone, furosemide, digoxin, Coreg, and Eliquis 5 p.o. b.i.d. ALLERGIES: LUZ INHIBITORS. PHYSICAL EXAMINATION: GENERAL: As follows; height of the patient 6 feet , weight of the patient 450 pounds, and body mass index 56 kg/m2. VITAL SIGNS: Temperature afebrile, heart rate 56, and blood pressure 131/90. HEENT: PERRLA. Extraocular muscles are intact. NECK: Supple. No carotid bruits or thyromegaly. CHEST: Clear to auscultation. HEART: S1 and S2 regular. ABDOMEN: Soft. EXTREMITIES: Clubbing and cyanosis negative. LABORATORY DATA: Blood workup: WBC 14, hemoglobin 16.9, hematocrit 49.8, platelet count 297,000. Chemistry shows sodium 132, potassium 4.2, chloride 96, carbon dioxide 13, anion gap of , creatinine 1.6. Troponin 0.04 negative. Creatinine clearance 48. IMPRESSION: A 37-year-old morbidly obese male with past medical history significant for nonischemic cardiomyopathy, diabetes, hypertension, hyperlipidemia, recurrent gastritis, recurrent pancreatitis in the past, history of tobacco abuse, nonischemic cardiomyopathy, admitted with abdominal pain, history of nephrolithiasis, and history of chronic kidney disease. RECOMMENDATIONS: Continue Coreg. Continue carvedilol. Continue morphine, Continue cautious hydration. Repeat the lab in the morning. Lasix is on hold because of patient says that he is not eating or a lit bit dehydrated. We will continue 500 mL of normal saline. Further recommendation depend upon hospital course. When troponin is borderline positive, we will repeat in the morning. We will follow with you. Thank you Dr. Santiago for providing us the opportunity in taking care of the patient, Gareth Leblanc. Shayna Thomson MD
[2018-08-10] MEDS: Levalbuterol 1.25 MG/3 ML Inhal Soln UD IH SCH ×3 (01:44→13:30)
[2018-08-10] MEDS: HYDROmorphone 1 mg/ml ISec IVP PRN ×6 (02:04→21:54)
[2018-08-10] MEDS: Pantoprazole 40 mg EC Tab PO SCH (05:56)
[2018-08-10 07:33] LABS: CALCIUM 9.3 mg/dL (8.4-10.5)
[2018-08-10 07:35] LABS: TROPONIN I 0.03 ng/mL
[2018-08-10 07:48] LABS: EOS # 0.1 (0.0-0.7); EOS % 1.1 % (1.5-5.0); GRAN # 7.33 (1.4-6.5); GRAN % 72.3 % (50.0-68.0); HEMOGLOBIN 15.6 g/dL (14.0-18.0); LYMPH # 1.6 (1.2-3.4); LYMPH % 15.7 % (22.0-35.0); MEAN CELL VOLUME 93.5 fl (80.0-105.0); MEAN CORPUSCULAR HEMOGLOBIN 30.9 pg (25.0-35.0); MEAN CORPUSCULAR HGB CONC 33.1 g/dl (31.0-37.0); MEAN PLATELET VOLUME 10.3 fl (7.0-11.0); MONO # 1.1 (0.1-0.6); MONO % 10.9 % (1.0-6.0); RBC 5.05 10^6/uL (3.5-6.1); RED CELL DISTRIBUTION WIDTH 15.3 % (11.5-14.5); WHITE BLOOD COUNT 10.1 10^3/uL (4.5-11.0)
--- NOTE | 2018-08-10 09:56 | CP.PCM.PN ---
<Kate Mullins - Last Filed: 08/10/18 09:53> Subjective - Date & Time of Evaluation Date of Evaluation: 08/10/18 Time of Evaluation: 09:53 - Subjective Subjective: Gastroenterology Fellow/PGY6 Progress Note Patient notes unchanged mid-upper and left upper quadrant abdominal pain, pain scale 8 out of 10. Notes loss of appetite. Tolerating clear liquid diet. No bowel movement yesterday. A 12-point review of systems negative except for as above. Objective - Vital Signs/Intake and Output Vital Signs (last 24 hours): Temp Pulse Resp BP Pulse Ox 97.3 F L 60 20 124/85 94 L 08/10/18 06:00 08/10/18 06:00 08/10/18 06:00 08/10/18 06:00 08/10/18 06:00 Intake and Output: 08/10/18 08/10/18 06:59 18:59 Intake Total 1620 Output Total 850 Balance 770 - Medications Medications: Current Medications Amylase (Pancrease 77816 U-5000 U-53301 U) 25,000 unit PO TID [facility] Last Admin: 08/09/18 17:41 Dose: 25,000 unit Apixaban (Eliquis) 5 mg PO Q12 [facility]; Protocol Last Admin: 08/09/18 22:02 Dose: 5 mg Carvedilol (Coreg) 3.125 mg PO BID [facility] Last Admin: 08/09/18 17:41 Dose: 3.125 mg Digoxin (Digoxin) 0.125 mg PO 1400 [facility] Last Admin: 08/09/18 14:05 Dose: 0.125 mg Famotidine (Pepcid) 40 mg PO HS [facility] Last Admin: 08/09/18 22:02 Dose: 40 mg Furosemide (Lasix) 40 mg PO 0800,1400 [facility] Hydromorphone HCl (Dilaudid) 1 mg IVP Q4H PRN PRN Reason: Pain, moderate (4-7) Last Admin: 08/10/18 05:56 Dose: 1 mg Ceftriaxone Sodium (Rocephin 1 Gram Ivpb) 1 gm in 100 mls @ 100 mls/hr IVPB DAILY [facility]; Protocol Last Admin: 08/09/18 17:42 Dose: 100 mls/hr Levalbuterol HCl (Xopenex) 1.25 mg IH [id number] [facility] Last Admin: 08/10/18 07:44 Dose: 1.25 mg Ondansetron HCl (Zofran Inj) 4 mg IVP Q6H PRN PRN Reason: Nausea/Vomiting Last Admin: 08/10/18 02:04 Dose: 4 mg Pantoprazole Sodium (Protonix Ec Tab) 40 mg PO 0600 [facility] Last Admin: 08/10/18 05:56 Dose: 40 mg Verapamil HCl (Calan Sr Tab) 120 mg PO DAILY [facility] Last Admin: 08/09/18 12:30 Dose: 120 mg Verapamil HCl (Verapamil Inj) 2.5 mg IVP Q6H PRN PRN Reason: for HR above 130 - Labs Labs: 08/10/18 06:55 08/10/18 06:55 - Constitutional Appears: Non-toxic, No Acute Distress - Head Exam Head Exam: ATRAUMATIC, NORMOCEPHALIC - Eye Exam Eye Exam: EOMI, PERRL. absent: Scleral icterus Pupil Exam: PERRL - ENT Exam ENT Exam: Mucous Membranes Moist, Normal Oropharynx - Neck Exam Neck Exam: Full ROM, Normal Inspection - Respiratory Exam Respiratory Exam: Clear to Ausculation Bilateral. absent: Rales, Rhonchi, Wheezes - Cardiovascular Exam Cardiovascular Exam: RRR, +S1, +S2. absent: Gallop, Rubs - GI/Abdominal Exam GI & Abdominal Exam: Soft, Tenderness, Normal Bowel Sounds. absent: Distended, Firm, Guarding, Rigid, Organomegaly, Rebound Additional comments: LUQ and mid-epigastric discomfort to palpation - Extremities Exam Extremities Exam: Normal Inspection, Pedal Edema - Neurological Exam Neurological Exam: Alert, Awake - Psychiatric Exam Psychiatric exam: Normal Affect, Normal Mood - Skin Skin Exam: Dry, Intact, Normal Color, Warm Assessment and Plan - Assessment and Plan (Free Text) Assessment: 37 year old morbidly obese male with PMH of chronic pancreatitis on Pancrease, renal insufficiency, Afib on Eliquis, and nonischemic cardiomyopathy presenting with abdominal pain and dark stools. Active treatment of epigastric pain with endorsed black stools. Prior colonoscopy 2016 with fair prep with recommend outpatient repeat for which patient has not followed up. Plan: -no signs of acute GI bleed -H/H stable at baseline -continue PPI ACB and zantac QHS -tolerating clear liquid diet -continue Pancrease [id number] Lipase TID with meals -will benefit from EGD after anesthesia evaluation as patient is high risk given multiple comorbidities -will benefit from outpatient eelctive colonoscopy due to fair prep on prior exam -will follow clinical course <Souleymane Choe V - Last Filed: 08/10/18 23:59> Objective - Vital Signs/Intake and Output Vital Signs (last 24 hours): Temp Pulse Resp BP Pulse Ox 98.3 F 84 20 128/95 H 94 L 08/10/18 17:36 08/10/18 17:58 08/10/18 17:36 08/10/18 17:58 08/10/18 06:00 Intake and Output: 08/10/18 08/11/18 18:59 06:59 Intake Total 700 Output Total 1750 Balance -1050 - Medications Medications: Current Medications Amylase (Pancrease 92010 U-5000 U-47628 U) 25,000 unit PO TID [facility] Last Admin: 08/10/18 18:03 Dose: Not Given Apixaban (Eliquis) 5 mg PO Q12 [facility]; Protocol Last Admin: 08/10/18 21:55 Dose: 5 mg Carvedilol (Coreg) 3.125 mg PO BID [facility] Last Admin: 08/10/18 17:58 Dose: 3.125 mg Digoxin (Digoxin) 0.125 mg PO 1400 [facility] Last Admin: 08/10/18 14:01 Dose: 0.125 mg Famotidine (Pepcid) 40 mg PO HS [facility] Last Admin: 08/10/18 21:55 Dose: 40 mg Furosemide (Lasix) 40 mg PO 0800,1400 [facility] Last Admin: 08/10/18 14:01 Dose: 40 mg Hydromorphone HCl (Dilaudid) 1 mg IVP Q4H PRN PRN Reason: Pain, moderate (4-7) Last Admin: 08/10/18 21:54 Dose: 1 mg Ceftriaxone Sodium (Rocephin 1 Gram Ivpb) 1 gm in 100 mls @ 100 mls/hr IVPB DAILY [facility]; Protocol Last Admin: 08/10/18 11:03 Dose: 100 mls/hr Levalbuterol HCl (Xopenex) 1.25 mg IH [id number] [facility] Last Admin: 08/10/18 13:30 Dose: 1.25 mg Ondansetron HCl (Zofran Inj) 4 mg IVP Q6H PRN PRN Reason: Nausea/Vomiting Last Admin: 08/10/18 17:59 Dose: 4 mg Pantoprazole Sodium (Protonix Ec Tab) 40 mg PO 0600 [facility] Last Admin: 08/10/18 05:56 Dose: 40 mg Verapamil HCl (Calan Sr Tab) 120 mg PO DAILY [facility] Last Admin: 08/10/18 11:02 Dose: 120 mg Verapamil HCl (Verapamil Inj) 2.5 mg IVP Q6H PRN PRN Reason: for HR above 130 - Labs Labs: 08/10/18 06:55 08/10/18 06:55 Attending/Attestation - Attestation I have personally seen and examined this patient.: Yes I have fully participated in the care of the patient.: Yes I have reviewed all pertinent clinical information, including history, physical exam and plan: Yes Notes (Text): This is an addendum to GI progress report dictated by the GI Fellow.The patient was seen and examined earlier. Medical records, lab studies, imagings were reviewed. Last 24 hours events reviewed. Agreed with the above treatment plan as outlined in GI Fellow 's notes with the addition of the following 08/10/18 23:59
[2018-08-10] MEDS: Amylase/Lipase/Protease 5,000 Units ECC PO SCH ×3 (10:01→18:03)
[2018-08-10] MEDS: Verapamil 120 mg ER Tab PO SCH (11:02)
[2018-08-10] MEDS: cefTRIAXone 1 gm 1 GM/100 ML BAG IVPB SCH (11:03)
--- NOTE | 2018-08-10 12:02 | PN ---
DATE: 08/10/2018 SUBJECTIVE: The patient is 37 years old, seen and examined, lying in bed. He states his flank pain seems to be a little better. Denies any nausea or vomiting. No chest pain. No shortness of breath while at rest. PHYSICAL EXAMINATION: VITAL SIGNS: He is afebrile, pulse 60, respirations 20, blood pressure 122/67. LUNGS: Bilateral fair airflow. No rhonchi or crackle. HEART: S1 and S2 audible. ABDOMEN: Soft, obese, nontender. No rebound. No guarding. NEUROLOGICAL: He is awake, alert, oriented, communicative. Moves all extremity. EXTREMITIES: Bilateral leg, +1 edema. LABORATORY EXAM: WBC 10.1, hemoglobin 15.6, hematocrit 47.2, platelet of 251. Chemistry: Sodium 133, potassium 4.1, chloride 97, CO2 of 27, BUN 35, creatinine 1.6. Urinalysis, blood cultures were negative. ASSESSMENT: 1. History of hematuria. 2. Cardiomyopathy. 3. Congestive heart failure. 4. Renal insufficiency. 5. History of intermittent pancreatitis. 6. Paroxysmal atrial fibrillation. 7. Nonischemic cardiomyopathy. PLAN: Currently, the patient is on IV fluid. He is on verapamil. He is on carvedilol. He is on digoxin. He is getting Dilaudid and he is on Eliquis. The patient hemodynamically is stable. His urinalysis showed leukocyte esterase with wbc's of 5-10, but his urine cultures are pending, so we will continue on Rocephin until we get the cultures back. He is on IV diuretics. Continue him on nebulizer treatment. He is hemodynamically stable. We will discontinue his telemetry. Awaiting Dr. Summers's input with possible replacement of ureteric catheter or any other actions. Sammy Santiago MD
--- NOTE | 2018-08-10 12:08 | PN ---
DATE: 08/10/2018 REASON FOR CONSULTATION AND FOLLOWUP: Cardiac evaluation, history of atrial fibrillation, history of nonischemic cardiomyopathy, admitted with abdominal pain and vomiting, vomited once blood and hematuria. Denies any chest pain, shortness of breath or any palpitation. PHYSICAL EXAMINATION: VITAL SIGNS: Temperature afebrile, heart rate 60, blood pressure 124/85. HEENT: PERRLA. Extraocular muscles intact. NECK: Supple. No carotid bruits or thyromegaly. CHEST: Clear to auscultation. HEART: S1 and S2 regular. ABDOMEN: Soft. EXTREMITIES: Clubbing and cyanosis negative. LABORATORY DATA: WBC 10.1, hemoglobin 15.6, hematocrit 47.2, platelet count 251. Chemistry shows sodium 133, potassium 4.2, chloride 97, carbon dioxide 27, anion gap of 13, BUN 35, and creatinine 1.6. Troponin is 0.03, 0.28 in phase of creatinine clearance of 46, probably not significant, unknown. IMPRESSION: This is a 37-year-old male with past medical history significant for nonischemic cardiomyopathy, status post cardiac catheterization 4 years ago, admitted with abdominal pain, history of renal insufficiency, history of stent in the kidney, morbid obesity, history of chronic atrial fibrillation, on anticoagulation admitted with abdominal pain, history of recurrent pancreatitis secondary to alcohol abuse in the past. Yesterday, the patient with fluid , started intravenous fluid. RECOMMENDATIONS: Continue digoxin, continue Coreg, continue verapamil, continue Eliquis. We will start Lasix 40 mg daily. We will follow with you. Thank you, Dr. Santiago, for providing us the opportunity in taking care of the patient, Gareth Leblanc. Shayna Thomson MD
[2018-08-10] MEDS: Digoxin 125 mcg (0.125 mg) Tab PO SCH (14:01)
--- NOTE | 2018-08-10 14:51 | PN ---
DATE: 08/10/2018 SUBJECTIVE: The patient is seen sitting in bed. He appears comfortable, but he complains of severe abdominal pain, does not appear to be in pain. He also complains of severe left-sided back pain. PHYSICAL EXAMINATION: GENERAL: Morbidly obese young male, sitting in bed. VITAL SIGNS: Blood pressure 127/73, heart rate 96, respiratory rate 20, temperature 98.2. HEENT: Normocephalic, atraumatic, no pallor, no icterus. NECK: Supple, no JVD. LUNGS: Bilateral equal air entry, bilateral equal expansion, no rales. CARDIAC: S1 and S2, regular rate and rhythm, no murmur, no rub. ABDOMEN: Obese, distended, soft, nontender, bowel sounds present. EXTREMITIES: No lower extremity edema. INTAKE AND OUTPUT: 1620/1150. LABORATORY DATA: WBC 10, hemoglobin 15.6, hematocrit 47, platelets 251. Sodium 133, potassium 4.1, chloride 97, CO2 of 27, BUN 35, creatinine 1.6, glucose 104, calcium 9.3, phosphorus 4.4, magnesium 2.1, troponin 0.03, albumin 4. Urinalysis yellow, slightly cloudy, pH 5.5, specific gravity greater than 1.030, protein 30, moderate blood, leukocyte esterase small. Blood cultures, no growth. CURRENT MEDICATIONS: Calan, Coreg 3.125 b.i.d., digoxin 0.125 daily, Dilaudid 1 mg every 4, Eliquis 5 every 12, Lasix 40 p.o. b.i.d., Protonix, Rocephin, verapamil, Xopenex. ASSESSMENT: 1. Hematuria. 2. Nausea, vomiting, ? hematemesis. 3. Mild prerenal azotemia. 4. Hypertension. 5. Cardiomyopathy. 6. Atrial fibrillation. PLAN: 1. Continue anticoagulation. 2. Continue Lasix. 3. Hold Aldactone. 4. Discontinue empiric antibiotics? 5. Limit pain medication. Angelica Don MD
[2018-08-11] MEDS: HYDROmorphone 1 mg/ml ISec IVP PRN ×6 (02:00→22:58)
[2018-08-11] MEDS: Pantoprazole 40 mg EC Tab PO SCH (07:00)
[2018-08-11] MEDS: Levalbuterol 1.25 MG/3 ML Inhal Soln UD IH SCH ×3 (07:52→20:59)
[2018-08-11 08:03] LABS: BASO # 0.01 K/mm3 (0.0-2.0); BASO % 0.1 % (0.0-3.0); EOS # 0.2 (0.0-0.7); EOS % 1.8 % (1.5-5.0); GRAN # 7.5 (1.4-6.5); GRAN % 64.2 % (50.0-68.0); HEMOGLOBIN 16.3 g/dL (14.0-18.0); LYMPH # 2.9 (1.2-3.4); LYMPH % 24.7 % (22.0-35.0); MEAN CORPUSCULAR HEMOGLOBIN 30.7 pg (25.0-35.0); MEAN PLATELET VOLUME 10.5 fl (7.0-11.0); MONO # 1.1 (0.1-0.6); MONO % 9.2 % (1.0-6.0); RBC 5.31 10^6/uL (3.5-6.1); RED CELL DISTRIBUTION WIDTH 15.1 % (11.5-14.5); WHITE BLOOD COUNT 11.7 10^3/uL (4.5-11.0)
[2018-08-11 08:16] LABS: ALB/GLOB RATIO 0.9 (1.1-1.8); ALBUMIN 4.4 g/dL (3.0-4.8); CALCIUM 9.6 mg/dL (8.4-10.5)
[2018-08-11] MEDS: cefTRIAXone 1 gm 1 GM/100 ML BAG IVPB SCH (10:42)
[2018-08-11] MEDS: Verapamil 120 mg ER Tab PO SCH (10:43)
[2018-08-11] MEDS: Amylase/Lipase/Protease 5,000 Units ECC PO SCH ×3 (10:49→17:34)
--- NOTE | 2018-08-11 11:47 | PN ---
DATE: 08/11/2018 SUBJECTIVE: The patient is 37 years old, lying in bed, seems to be comfortable. Although, he claims he still has abdominal pain. He has no appetite. He is on liquid diet. He has no vomiting noted. PHYSICAL EXAMINATION: VITAL SIGNS: He is afebrile, pulse 66, respirations 20, blood pressure 129/66. LUNGS: Bilateral fair airflow. No rhonchi or crackle. HEART: S1 and S2 audible. ABDOMEN: Soft, obese, nontender. No rebound. No guarding. NEUROLOGICAL: The patient is awake, alert, oriented, communicative, ambulatory. LABORATORY EXAM: WBC is 11.7, hemoglobin 16.3, hematocrit 49.4, platelet of 283. Chemistry: Sodium 133, potassium 4, chloride 94, CO2 of 25, BUN 32, creatinine 1.8, blood sugar of 77. ASSESSMENT; 1. Abdominal pain, etiology is still unclear. He does have a history of recurrent pancreatitis. 2. Renal insufficiency. 3. Nonischemic cardiomyopathy. 4. History of alcohol abuse in the past. 5. Left nephrolithiasis. Had stents placed, but his urine is clear. Blood cultures are negative. PLAN: The patient is currently on verapamil, Coreg, digoxin. He is on Eliquis. He is on Lasix twice a day. There is no evidence of UTI, so I will discontinue Rocephin after today's dose. I discussed with Dr. Choe. He want to do endoscopy as outpatient. I also spoke to Dr. Summers, who is planning to do cystoscopy. Sammy Santiago MD
--- NOTE | 2018-08-11 13:41 | CP.PCM.PN ---
<Haseeb Erickson - Last Filed: 08/11/18 13:43> Subjective - Date & Time of Evaluation Date of Evaluation: 08/11/18 Time of Evaluation: 07:45 - Subjective Subjective: PGY6 GI Fellow Progress Note Patient seen and examined bedside this morning. The patient states that he continues to have severe abdominal pain radiating to the back. Also endorses dysuria. Having difficulty tolerating liquid diet due to nausea. 12 system ROS performed and negative except where stated Objective - Vital Signs/Intake and Output Vital Signs (last 24 hours): Temp Pulse Resp BP Pulse Ox 98.0 F 66 20 129/66 98 08/11/18 06:00 08/11/18 06:00 08/11/18 06:00 08/11/18 10:43 08/11/18 06:00 Intake and Output: 08/11/18 08/11/18 06:59 18:59 Intake Total 1000 Output Total 700 Balance 300 - Medications Medications: Current Medications Amylase (Pancrease 08974 U-5000 U-82354 U) 25,000 unit PO TID [facility] Last Admin: 08/11/18 10:55 Dose: Not Given Apixaban (Eliquis) 5 mg PO Q12 [facility]; Protocol Last Admin: 08/11/18 10:43 Dose: 5 mg Carvedilol (Coreg) 3.125 mg PO BID [facility] Last Admin: 08/11/18 10:45 Dose: 3.125 mg Digoxin (Digoxin) 0.125 mg PO 1400 [facility] Last Admin: 08/10/18 14:01 Dose: 0.125 mg Famotidine (Pepcid) 40 mg PO HS [facility] Last Admin: 08/10/18 21:55 Dose: 40 mg Furosemide (Lasix) 40 mg PO 0800,1400 [facility] Last Admin: 08/11/18 10:43 Dose: 40 mg Hydromorphone HCl (Dilaudid) 1 mg IVP Q4H PRN PRN Reason: Pain, moderate (4-7) Last Admin: 08/11/18 10:53 Dose: 1 mg Levalbuterol HCl (Xopenex) 1.25 mg IH [id number] [facility] Last Admin: 08/11/18 07:52 Dose: Not Given Ondansetron HCl (Zofran Inj) 4 mg IVP Q6H PRN PRN Reason: Nausea/Vomiting Last Admin: 08/11/18 10:44 Dose: 4 mg Pantoprazole Sodium (Protonix Ec Tab) 40 mg PO 0600 [facility] Last Admin: 08/11/18 07:00 Dose: 40 mg Verapamil HCl (Calan Sr Tab) 120 mg PO DAILY [facility] Last Admin: 08/11/18 10:43 Dose: 120 mg Verapamil HCl (Verapamil Inj) 2.5 mg IVP Q6H PRN PRN Reason: for HR above 130 - Labs Labs: 08/11/18 07:00 08/11/18 07:00 - Constitutional Appears: Non-toxic, No Acute Distress, Other (obese) - Eye Exam Eye Exam: EOMI, PERRL - ENT Exam ENT Exam: Mucous Membranes Moist - Respiratory Exam Respiratory Exam: Clear to Ausculation Bilateral. absent: Rales, Rhonchi, Wheezes - Cardiovascular Exam Cardiovascular Exam: RRR, +S1, +S2 - GI/Abdominal Exam GI & Abdominal Exam: Soft, Normal Bowel Sounds. absent: Distended, Firm, Guarding, Rigid, Tenderness, Organomegaly - Extremities Exam Extremities Exam: Normal Inspection. absent: Pedal Edema - Back Exam Back Exam: CVA tenderness (L) (pronounced) - Neurological Exam Neurological Exam: Alert, Awake, Oriented x3 - Psychiatric Exam Psychiatric exam: Anxious, Normal Affect - Skin Skin Exam: Dry, Warm Assessment and Plan - Assessment and Plan (Free Text) Assessment: Patient is a 37yo morbidly obese male with PMHx of chronic pancreatitis on pancreatic enzyme support, renal insufficiency, Atrial fibrillation on Eliquis and nonischemic cardiomyopathy presenting with abdominal pain and dark stools -Abdominal/flank pain -Nephrolithiasis -Chronic Pancreatitis -Cardiomyopathy Plan: -Flank pain may be secondary to nephrolithiasis with history of complications and acute CVA tenderness present -Per patient, plan for cystoscopy this coming week -EGD can be performed on an elective basis and there is no need for urgent evaluation at this time -Continue pancreatic enzyme support prior to meals - PPI ordered daily to prevent enzyme breakdown -Diet as tolerated -Symptomatic management -Monitor clinical course <Souleymane Choe V - Last Filed: 08/13/18 00:04> Objective - Vital Signs/Intake and Output Vital Signs (last 24 hours): Temp Pulse Resp BP Pulse Ox 98.0 F 82 18 123/89 96 08/12/18 22:00 08/12/18 22:00 08/12/18 22:00 08/12/18 22:00 08/12/18 22:00 Intake and Output: 08/12/18 08/13/18 18:59 06:59 Intake Total 520 Balance 520 - Medications Medications: Current Medications Amylase (Pancrease 59421 U-5000 U-13770 U) 25,000 unit PO AC [facility] Last Admin: 08/12/18 17:23 Dose: Not Given Apixaban (Eliquis) 5 mg PO Q12 [facility]; Protocol Last Admin: 08/12/18 21:51 Dose: 5 mg Carvedilol (Coreg) 3.125 mg PO BID [facility] Last Admin: 08/12/18 17:32 Dose: 3.125 mg Digoxin (Digoxin) 0.125 mg PO 1400 [facility] Last Admin: 08/12/18 13:20 Dose: 0.125 mg Famotidine (Pepcid) 40 mg PO HS [facility] Last Admin: 08/12/18 21:52 Dose: 40 mg Furosemide (Lasix) 40 mg PO 0800,1400 [facility] Last Admin: 08/12/18 13:25 Dose: 40 mg Hydromorphone HCl (Dilaudid) 1 mg IVP Q4H PRN PRN Reason: Pain, moderate (4-7) Last Admin: 08/12/18 23:33 Dose: 1 mg Levalbuterol HCl (Xopenex) 1.25 mg IH [id number] [facility] Last Admin: 08/12/18 20:38 Dose: 1.25 mg Ondansetron HCl (Zofran Inj) 4 mg IVP Q6H PRN PRN Reason: Nausea/Vomiting Last Admin: 08/12/18 19:34 Dose: 4 mg Pantoprazole Sodium (Protonix Ec Tab) 40 mg PO 0600 [facility] Last Admin: 08/12/18 05:20 Dose: 40 mg Verapamil HCl (Calan Sr Tab) 120 mg PO DAILY [facility] Last Admin: 08/12/18 10:42 Dose: 120 mg Verapamil HCl (Verapamil Inj) 2.5 mg IVP Q6H PRN PRN Reason: for HR above 130 - Labs Labs: 08/12/18 07:00 08/12/18 07:00 Attending/Attestation - Attestation I have personally seen and examined this patient.: Yes I have fully participated in the care of the patient.: Yes I have reviewed all pertinent clinical information, including history, physical exam and plan: Yes Notes (Text): p 08/13/18 00:04
[2018-08-11] MEDS: Digoxin 125 mcg (0.125 mg) Tab PO SCH (15:03)
[2018-08-12] MEDS: Levalbuterol 1.25 MG/3 ML Inhal Soln UD IH SCH ×4 (02:00→20:38)
[2018-08-12] MEDS: HYDROmorphone 1 mg/ml ISec IVP PRN ×6 (03:04→23:33)
[2018-08-12] MEDS: Pantoprazole 40 mg EC Tab PO SCH (05:20)
[2018-08-12 08:10] LABS: EOS # 0.1 (0.0-0.7); EOS % 1.4 % (1.5-5.0); GRAN # 6.77 (1.4-6.5); GRAN % 68.5 % (50.0-68.0); HEMOGLOBIN 16.3 g/dL (14.0-18.0); LYMPH # 1.6 (1.2-3.4); LYMPH % 15.9 % (22.0-35.0); MEAN CELL VOLUME 92.8 fl (80.0-105.0); MEAN CORPUSCULAR HEMOGLOBIN 30.8 pg (25.0-35.0); MEAN CORPUSCULAR HGB CONC 33.1 g/dl (31.0-37.0); MEAN PLATELET VOLUME 10.4 fl (7.0-11.0); MONO # 1.4 (0.1-0.6); MONO % 14.2 % (1.0-6.0); RBC 5.3 10^6/uL (3.5-6.1); RED CELL DISTRIBUTION WIDTH 14.9 % (11.5-14.5); WHITE BLOOD COUNT 9.9 10^3/uL (4.5-11.0)
[2018-08-12 08:25] LABS: ALBUMIN 4.3 g/dL (3.0-4.8); CALCIUM 9.5 mg/dL (8.4-10.5)
[2018-08-12] MEDS: Verapamil 120 mg ER Tab PO SCH (10:42)
[2018-08-12] MEDS: Amylase/Lipase/Protease 5,000 Units ECC PO SCH ×3 (10:47→17:23)
--- NOTE | 2018-08-12 12:38 | CP.PCM.PN ---
<Haseeb Erickson - Last Filed: 08/12/18 12:35> Subjective - Date & Time of Evaluation Date of Evaluation: 08/12/18 Time of Evaluation: 08:50 - Subjective Subjective: PGY6 GI Fellow Progress Note Patient seen and examined bedside this morning. The patient continues to endorse abdominal/flank pain and difficulty tolerating liquid diet. Notes nausea and vomiting. No episodes of loose stool. Refused pancreatic enzymes. 12 system ROS performed and negative except where stated Objective - Vital Signs/Intake and Output Vital Signs (last 24 hours): Temp Pulse Resp BP Pulse Ox 98.1 F 68 20 118/68 97 08/12/18 06:00 08/12/18 10:42 08/12/18 06:00 08/12/18 11:11 08/12/18 06:00 Intake and Output: 08/12/18 08/12/18 06:59 18:59 Intake Total 500 Balance 500 - Medications Medications: Current Medications Amylase (Pancrease 69548 U-5000 U-87369 U) 25,000 unit PO AC [facility] Last Admin: 08/12/18 10:47 Dose: Not Given Apixaban (Eliquis) 5 mg PO Q12 [facility]; Protocol Last Admin: 08/12/18 10:42 Dose: 5 mg Carvedilol (Coreg) 3.125 mg PO BID [facility] Last Admin: 08/12/18 10:42 Dose: 3.125 mg Digoxin (Digoxin) 0.125 mg PO 1400 [facility] Last Admin: 08/11/18 15:03 Dose: 0.125 mg Famotidine (Pepcid) 40 mg PO HS [facility] Last Admin: 08/10/18 21:55 Dose: 40 mg Furosemide (Lasix) 40 mg PO 0800,1400 [facility] Last Admin: 08/12/18 11:11 Dose: 40 mg Hydromorphone HCl (Dilaudid) 1 mg IVP Q4H PRN PRN Reason: Pain, moderate (4-7) Last Admin: 08/12/18 11:12 Dose: 1 mg Levalbuterol HCl (Xopenex) 1.25 mg IH [id number] [facility] Last Admin: 08/12/18 07:31 Dose: 1.25 mg Ondansetron HCl (Zofran Inj) 4 mg IVP Q6H PRN PRN Reason: Nausea/Vomiting Last Admin: 08/12/18 10:42 Dose: 4 mg Pantoprazole Sodium (Protonix Ec Tab) 40 mg PO 0600 [facility] Last Admin: 08/12/18 05:20 Dose: 40 mg Verapamil HCl (Calan Sr Tab) 120 mg PO DAILY [facility] Last Admin: 08/12/18 10:42 Dose: 120 mg Verapamil HCl (Verapamil Inj) 2.5 mg IVP Q6H PRN PRN Reason: for HR above 130 - Labs Labs: 08/12/18 07:00 08/12/18 07:00 - Constitutional Appears: Non-toxic, No Acute Distress, Other (obese) - Eye Exam Eye Exam: EOMI, PERRL - ENT Exam ENT Exam: Mucous Membranes Moist - Respiratory Exam Respiratory Exam: Clear to Ausculation Bilateral. absent: Rales, Rhonchi, Wheezes - Cardiovascular Exam Cardiovascular Exam: RRR, +S1, +S2 - GI/Abdominal Exam GI & Abdominal Exam: Guarding, Soft, Tenderness (diffusely, worst across left flank), Normal Bowel Sounds. absent: Distended, Firm, Rigid, Organomegaly - Extremities Exam Extremities Exam: Normal Inspection. absent: Pedal Edema - Neurological Exam Neurological Exam: Alert, Awake, Oriented x3 - Psychiatric Exam Psychiatric exam: Anxious - Skin Skin Exam: Dry, Warm Assessment and Plan - Assessment and Plan (Free Text) Assessment: Patient is a 37yo morbidly obese male with PMHx of chronic pancreatitis on pancreatic enzyme support, renal insufficiency, Atrial fibrillation on Eliquis and nonischemic cardiomyopathy presenting with abdominal pain and dark stools -Abdominal/flank pain -Nephrolithiasis -Chronic Pancreatitis -Cardiomyopathy -Tobacco abuse Plan: -Extensive education provided on chronic pancreatitis - importance of EtOH and tobacco cessation stressed -Consider urology etiologies for flank pain - possibly cystoscopy this week -Note patient is currently on Eliquis if any planned procedures are to take place -EGD can be performed on an elective basis and there remains no urgent indication for evaluation at this time -Continue PPI therapy and pancreatic enzyme support -Diet as tolerated with goal of low fat -Symptomatic management -Monitor clinical course <Souleymane Choe V - Last Filed: 08/13/18 00:03> Objective - Vital Signs/Intake and Output Vital Signs (last 24 hours): Temp Pulse Resp BP Pulse Ox 98.0 F 82 18 123/89 96 08/12/18 22:00 08/12/18 22:00 08/12/18 22:00 08/12/18 22:00 08/12/18 22:00 Intake and Output: 08/12/18 08/13/18 18:59 06:59 Intake Total 520 Balance 520 - Medications Medications: Current Medications Amylase (Pancrease 99141 U-5000 U-38765 U) 25,000 unit PO AC [facility] Last Admin: 08/12/18 17:23 Dose: Not Given Apixaban (Eliquis) 5 mg PO Q12 [facility]; Protocol Last Admin: 08/12/18 21:51 Dose: 5 mg Carvedilol (Coreg) 3.125 mg PO BID [facility] Last Admin: 08/12/18 17:32 Dose: 3.125 mg Digoxin (Digoxin) 0.125 mg PO 1400 [facility] Last Admin: 08/12/18 13:20 Dose: 0.125 mg Famotidine (Pepcid) 40 mg PO HS [facility] Last Admin: 08/12/18 21:52 Dose: 40 mg Furosemide (Lasix) 40 mg PO 0800,1400 [facility] Last Admin: 08/12/18 13:25 Dose: 40 mg Hydromorphone HCl (Dilaudid) 1 mg IVP Q4H PRN PRN Reason: Pain, moderate (4-7) Last Admin: 08/12/18 23:33 Dose: 1 mg Levalbuterol HCl (Xopenex) 1.25 mg IH [id number] [facility] Last Admin: 08/12/18 20:38 Dose: 1.25 mg Ondansetron HCl (Zofran Inj) 4 mg IVP Q6H PRN PRN Reason: Nausea/Vomiting Last Admin: 08/12/18 19:34 Dose: 4 mg Pantoprazole Sodium (Protonix Ec Tab) 40 mg PO 0600 [facility] Last Admin: 08/12/18 05:20 Dose: 40 mg Verapamil HCl (Calan Sr Tab) 120 mg PO DAILY [facility] Last Admin: 08/12/18 10:42 Dose: 120 mg Verapamil HCl (Verapamil Inj) 2.5 mg IVP Q6H PRN PRN Reason: for HR above 130 - Labs Labs: 08/12/18 07:00 08/12/18 07:00 Attending/Attestation - Attestation I have personally seen and examined this patient.: Yes I have fully participated in the care of the patient.: Yes I have reviewed all pertinent clinical information, including history, physical exam and plan: Yes
[2018-08-12] MEDS: Digoxin 125 mcg (0.125 mg) Tab PO SCH (13:20)
[2018-08-12 13:27] VITALS: PULSE 68
--- NOTE | 2018-08-12 15:59 | PN ---
DATE: 08/12/2018 SUBJECTIVE: The patient is seen sitting in bed. He is comfortable. He is watching a football game. Does not appear to be in any kind of distress. PHYSICAL EXAMINATION: VITAL SIGNS: Blood pressure 135/82, heart rate 68, respiratory rate 18, temperature 98.1. HEENT: Normocephalic, atraumatic, positive pallor, no icterus. NECK: Supple, no JVD. LUNGS: Bilateral equal air entry, bilateral equal expansion. CARDIAC: S1, S2. Regular rate and rhythm, no murmur, no rub. ABDOMEN: Obese, distended, soft, nontender, bowel sounds present. EXTREMITIES: No lower extremity edema. INTAKE AND OUTPUT: Not charted. LABORATORY DATA: WBC 9.9, hemoglobin 16, hematocrit 49, platelets 263,000. Sodium 134, potassium 3.9, chloride 96, CO2 of 26, BUN 32, creatinine 1.6, glucose 79. MEDICATIONS: List reviewed. ASSESSMENT: 1. Stable chronic kidney disease, stage 3. 2. Hematuria, history of left kidney stone, left hydronephrosis, left ureteral stent. 3. Morbid obesity. 4. Hypertension, well controlled at this time. 5. Congestive heart failure/cardiomyopathy/volume overload, currently compensated. PLAN: 1. The patient is awaiting cystoscopy tomorrow. 2. Continue current management. 3. Taper off Dilaudid. Angelica Don MD
--- NOTE | 2018-08-12 16:18 | PN ---
DATE: 08/12/2018 SUBJECTIVE: The patient has no complaints of any chest pain or shortness of breath. No headaches or dizziness. PHYSICAL EXAMINATION: GENERAL: The patient is lying in bed, flat, comfortable. VITAL SIGNS: Temperature is 98.1, pulse is 68, blood pressure is 118/60, respirations 20. HEENT: No oral lesion. Anicteric sclerae. Moist mucosa. NECK: No JVD, adenopathy, or thyromegaly. CARDIOVASCULAR: S1 and S2, regular. No murmurs, rubs, or gallops. LUNGS: Clear to auscultation bilaterally. No wheeze, rales, or rhonchi. ABDOMEN: Bowel sounds are positive, soft, nontender and nondistended. EXTREMITIES: No cyanosis, clubbing or edema. LABORATORY DATA: White count of 9.9, hemoglobin 16.3. Creatinine is 1.6. ASSESSMENT: 1. Abdominal pain. 2. Non-ischemic cardiomyopathy. 3. History of alcohol abuse. 4. Kidney stones. PLAN: The patient is on carvedilol. He is going to continue with digoxin for his heart. The patient is on Dilaudid for pain. He said he is not feeling well. I advised him that he can be discharged and follow up as an outpatient for his cystoscopy and endoscopy. He said he has not been able to eat, thus he has been on a liquid diet. He is on Pancrease for his chronic pancreatitis. He is on Pepcid. He is going to continue with Zofran as needed. Singh Gutierrez MD
--- NOTE | 2018-08-12 22:34 | PCM.URO ---
Urology Progress Note - Subjective Abdominal Pain: Yes (gu plans : cystoscopy tomorrow afternoon ) - Objective Lab Results Last 24 Hours: Laboratory Results - last 24 hr 08/12/18 08/12/18 07:00 07:00 WBC 9.9 RBC 5.30 Hgb 16.3 Hct 49.2 MCV 92.8 MCH 30.8 MCHC 33.1 RDW 14.9 H Plt Count 263 MPV 10.4 Gran % 68.5 H Lymph % (Auto) 15.9 L [place] % (Auto) 14.2 H Eos % (Auto) 1.4 L Baso % (Auto) 0.0 Gran # 6.77 H Lymph # (Auto) 1.6 [place] # (Auto) 1.4 H Eos # (Auto) 0.1 Baso # (Auto) 0.00 Sodium 134 Potassium 3.9 Chloride 96 L Carbon Dioxide 26 Anion Gap 16 BUN 32 H Creatinine 1.6 H Est GFR ( Amer) 59 Est GFR (Non-Af Amer) 48 Random Glucose 79 Calcium 9.5 Total Bilirubin 1.0 AST 24 ALT 24 Alkaline Phosphatase 85 Total Protein 8.6 H Albumin 4.3 Globulin 4.4 Albumin/Globulin Ratio 1.0 L Intake & Output: Intake & Output 08/12/18 08/12/18 08/13/18 06:59 18:59 06:59 Intake Total 500 520 Balance 500 520 Intake: Oral 500 520 Other: # Voids Urine, Voided 2 2 Vital Signs: Vital Signs - 24 hr 08/12/18 08/12/18 08/12/18 06:00 10:42 11:11 Temperature 98.1 F Pulse Rate 78 68 Respiratory 20 Rate Blood Pressure 124/74 118/89 118/68 O2 Sat by Pulse 97 Oximetry 08/12/18 08/12/18 08/12/18 13:25 14:00 17:32 Temperature 97.8 F Pulse Rate 74 84 Respiratory 20 Rate Blood Pressure 135/82 112/97 H 102/70 O2 Sat by Pulse 96 Oximetry 08/12/18 22:00 Temperature 98.0 F Pulse Rate 82 Respiratory 18 Rate Blood Pressure 123/89 O2 Sat by Pulse 96 Oximetry
[2018-08-13] MEDS: Levalbuterol 1.25 MG/3 ML Inhal Soln UD IH SCH ×5 (02:21→19:52)
[2018-08-13] MEDS: HYDROmorphone 1 mg/ml ISec IVP PRN ×5 (03:44→20:10)
--- NOTE | 2018-08-13 07:06 | CP.PCM.PN ---
Subjective - Date & Time of Evaluation Date of Evaluation: 08/13/18 Time of Evaluation: 06:20 - Subjective Subjective: Lying in bed semi fowlers position, awake,alert, no distress Reason for consultation and follow up: Cardiac evaluation and follow up,history of atrial fibrillation,non- ischemic cardiomyopathy,admitted due to abdominal pain and vomiting Seen and examined by me and Dr. Thomson Objective - Vital Signs/Intake and Output Vital Signs (last 24 hours): Temp Pulse Resp BP Pulse Ox 98.0 F 82 18 123/89 96 08/12/18 22:00 08/12/18 22:00 08/12/18 22:00 08/12/18 22:00 08/12/18 22:00 Intake and Output: 08/13/18 08/13/18 06:59 18:59 Intake Total 700 Output Total 400 Balance 300 - Medications Medications: Current Medications Amylase (Pancrease 96671 U-5000 U-47530 U) 25,000 unit PO AC [facility] Last Admin: 08/12/18 17:23 Dose: Not Given Apixaban (Eliquis) 5 mg PO Q12 [facility]; Protocol Last Admin: 08/12/18 21:51 Dose: 5 mg Carvedilol (Coreg) 3.125 mg PO BID [facility] Last Admin: 08/12/18 17:32 Dose: 3.125 mg Digoxin (Digoxin) 0.125 mg PO 1400 [facility] Last Admin: 08/12/18 13:20 Dose: 0.125 mg Famotidine (Pepcid) 40 mg PO HS [facility] Last Admin: 08/12/18 21:52 Dose: 40 mg Furosemide (Lasix) 40 mg PO 0800,1400 [facility] Last Admin: 08/12/18 13:25 Dose: 40 mg Hydromorphone HCl (Dilaudid) 1 mg IVP Q4H PRN PRN Reason: Pain, moderate (4-7) Last Admin: 08/13/18 03:44 Dose: 1 mg Levalbuterol HCl (Xopenex) 1.25 mg IH [id number] [facility] Last Admin: 08/13/18 02:21 Dose: Not Given Ondansetron HCl (Zofran Inj) 4 mg IVP Q6H PRN PRN Reason: Nausea/Vomiting Last Admin: 08/12/18 19:34 Dose: 4 mg Pantoprazole Sodium (Protonix Ec Tab) 40 mg PO 0600 [facility] Last Admin: 08/12/18 05:20 Dose: 40 mg Verapamil HCl (Calan Sr Tab) 120 mg PO DAILY [facility] Last Admin: 08/12/18 10:42 Dose: 120 mg Verapamil HCl (Verapamil Inj) 2.5 mg IVP Q6H PRN PRN Reason: for HR above 130 - Labs Labs: 08/12/18 07:00 08/12/18 07:00 - Constitutional Appears: Non-toxic, No Acute Distress - Head Exam Head Exam: NORMAL INSPECTION, NORMOCEPHALIC - Eye Exam Eye Exam: Normal appearance Pupil Exam: NORMAL ACCOMODATION - ENT Exam ENT Exam: Mucous Membranes Moist, Normal Exam - Respiratory Exam Respiratory Exam: Decreased Breath Sounds, NORMAL BREATHING PATTERN - Cardiovascular Exam Cardiovascular Exam: +S1, +S2 Additional comments: No JVD - GI/Abdominal Exam GI & Abdominal Exam: Soft, Normal Bowel Sounds - Extremities Exam Additional comments: 3+ pedal edema - Neurological Exam Neurological Exam: Alert, Awake, Oriented x3 - Psychiatric Exam Psychiatric exam: Normal Affect, Normal Mood - Skin Skin Exam: Dry, Normal Color, Warm Assessment and Plan - Assessment and Plan (Free Text) Assessment: A 37 year old morbidly obese male who came in to the ER due to left flank pain with nausea and vomiting. History of non ischemic cardiomyopathy, diabetes, hypertension, hyperlipidemia, nephrolithiasis, and chronic pancreatitis, chronic back pain. Had a stent placed on left kidney 3 months ago.For Cystoscopy today. Patient cleared for procedure. No evidence of ischemia or chest pain. No evidence of congestive heart failure. Moderate to high risk considering co- morbidities. Plan: Denies shortness of breath Heart rate controlled Blood pressure controlled For possible Cystoscopy today Okay to continue Eliquis as per Urology Cleared for procedure from cardiac standpoint on Eliquis 5 mg BID,coreg 3.125 mg BID,Digoxin 0.125 mg daily, Lasix 40 mg BID Verapamil 120 mg daily Continue current medications Continue current treatment Chart reviewed Will follow up Plan and treatment discussed with Dr. Thomson
--- NOTE | 2018-08-13 10:48 | CP.PCM.PN ---
Subjective - Date & Time of Evaluation Date of Evaluation: 08/13/18 Time of Evaluation: 10:48 - Subjective Subjective: Gastroenterology Fellow/PGY6 Progress Note Patient notes unchanged left upper quadrant abdominal pain, pain scale 9 out of 10.Admits to continued loss of appetite. Last bowel movement two days ago. A 12- point review of systems negative except for as above. Objective - Vital Signs/Intake and Output Vital Signs (last 24 hours): Temp Pulse Resp BP Pulse Ox 97.6 F 77 20 125/69 94 L 08/13/18 06:00 08/13/18 06:00 08/13/18 06:00 08/13/18 06:00 08/13/18 06:00 Intake and Output: 08/13/18 08/13/18 06:59 18:59 Intake Total 700 Output Total 400 Balance 300 - Medications Medications: Current Medications Amylase (Pancrease 80778 U-5000 U-37631 U) 25,000 unit PO AC [facility] Last Admin: 08/12/18 17:23 Dose: Not Given Apixaban (Eliquis) 5 mg PO Q12 [facility]; Protocol Last Admin: 08/12/18 21:51 Dose: 5 mg Carvedilol (Coreg) 3.125 mg PO BID [facility] Last Admin: 08/12/18 17:32 Dose: 3.125 mg Digoxin (Digoxin) 0.125 mg PO 1400 [facility] Last Admin: 08/12/18 13:20 Dose: 0.125 mg Famotidine (Pepcid) 40 mg PO HS [facility] Last Admin: 08/12/18 21:52 Dose: 40 mg Furosemide (Lasix) 40 mg PO 0800,1400 [facility] Last Admin: 08/12/18 13:25 Dose: 40 mg Hydromorphone HCl (Dilaudid) 1 mg IVP Q4H PRN PRN Reason: Pain, moderate (4-7) Last Admin: 08/13/18 07:55 Dose: 1 mg Levalbuterol HCl (Xopenex) 1.25 mg IH [id number] [facility] Last Admin: 08/13/18 07:40 Dose: 1.25 mg Ondansetron HCl (Zofran Inj) 4 mg IVP Q6H PRN PRN Reason: Nausea/Vomiting Last Admin: 08/13/18 07:55 Dose: 4 mg Pantoprazole Sodium (Protonix Ec Tab) 40 mg PO 0600 [facility] Last Admin: 08/12/18 05:20 Dose: 40 mg Verapamil HCl (Calan Sr Tab) 120 mg PO DAILY [facility] Last Admin: 08/12/18 10:42 Dose: 120 mg Verapamil HCl (Verapamil Inj) 2.5 mg IVP Q6H PRN PRN Reason: for HR above 130 - Labs Labs: 08/12/18 07:00 08/12/18 07:00 - Constitutional Appears: Non-toxic, No Acute Distress - Head Exam Head Exam: ATRAUMATIC, NORMOCEPHALIC - Eye Exam Eye Exam: EOMI, PERRL. absent: Scleral icterus Pupil Exam: PERRL. absent: Miosis, Mydriatic - ENT Exam ENT Exam: Mucous Membranes Moist, Normal Oropharynx - Neck Exam Neck Exam: Full ROM, Normal Inspection - Respiratory Exam Respiratory Exam: Clear to Ausculation Bilateral. absent: Rales, Rhonchi, Wh eezes - Cardiovascular Exam Cardiovascular Exam: RRR, +S1, +S2. absent: Gallop, Rubs - GI/Abdominal Exam GI & Abdominal Exam: Soft, Tenderness, Normal Bowel Sounds. absent: Distended, Firm, Guarding, Rigid, Organomegaly, Rebound Additional comments: left shweta-abdomen tenderness to palpation - Extremities Exam Extremities Exam: Normal Inspection, Pedal Edema - Neurological Exam Neurological Exam: Alert, Awake - Psychiatric Exam Psychiatric exam: Normal Affect, Normal Mood - Skin Skin Exam: Dry, Intact, Normal Color, Warm Assessment and Plan - Assessment and Plan (Free Text) Assessment: 37 year old morbidly obese male with PMH of chronic pancreatitis on Pancrease, renal insufficiency, Afib on Eliquis, nonischemic cardiomyopathy, and nephrolithiasis s/p left ureteral stent 05/2018 presenting with abdominal pain and dark stools. Active treatment of intractable abdominal pain. Prior colonoscopy 2015 with fair prep with recommend outpatient repeat for which patie nt has not followed up. Plan: -cystoscopy today -repeat urinalysis -H/H stable -continue PPI ACB and zantac QHS -advance diet as tolerated to low fat small frequent meals -continue Pancrease [id number] Lipase TID with meals -supportive care- pain control, anti-emetics -will discuss timing for EGD scheduling -will benefit from outpatient eelctive colonoscopy due to fair prep on prior exam -will follow clinical course
--- NOTE | 2018-08-13 11:53 | PN ---
DATE: 08/13/2018 Please see the note from 08/10/2018. The patient is still here, so we are going to try the enema per the schedule. I explained to him that it is going to be late in the afternoon, the earliest right now in the operating room I called yesterday to add schedule and the earliest time they are given me now is about 5 p.m. today. I told them that at that point I am in my office, but I have office hours from 5 p.m. to 9 p.m., but I will do my best to try to accommodate and I am going to stick with the OR and see if they can accommodate earlier. The patient said that please do something. Again, he is very pleasant about the whole matter, but it is difficult to him obviously to get back and forth. In this regard, he is pleasant but somewhat noncompliant and it is not good for his overall kidney health and also general medical health, so therefore if he is able to stay, we are going to try to do it today, although as rapidly as possible. And then further plans will follow. So, we will follow along if the other day develops and then make decisions. Juan Ramon Summers MD
--- NOTE | 2018-08-13 11:59 | PN ---
DATE: 08/13/2018 SUBJECTIVE: The patient is seen sitting in bed. He does not appear to be in any kind of distress. PHYSICAL EXAMINATION: VITAL SIGNS: Blood pressure 125/69, heart rate 77, respiratory rate 20, temperature 97.6. HEENT: Normocephalic, atraumatic. EXTREMITIES: No lower extremity edema. INTAKE AND OUTPUT: 700/400 (?). LABORATORY DATA: WBC 9.9, hemoglobin 16, hematocrit 49, platelets 263, creatinine 1.6 yesterday. CURRENT MEDICATIONS: Verapamil 120 mg daily, Coreg 3.125 b.i.d., digoxin 0.125 daily, Dilaudid, Eliquis 5 b.i.d., Lasix 40 p.o. b.i.d., Pepcid, Protonix. ASSESSMENT: 1. Hematuria, history of left hydronephrosis, left ureteral stent for cystoscopy today (?). 2. Vomiting/hematemesis (?), hemoglobin is 16. 3. Hypertension well controlled. 4. History of atrial fibrillation, congestive heart failure, cardiomyopathy, rate controlled. 5. Chronic kidney disease stage III, stable. PLAN: 1. Continue current management. 2. First cystoscopy today (?). 3. Esophagogastroduodenoscopy (?). 4. Stable from the renal standpoint. Angelica Don MD
[2018-08-13] MEDS: Verapamil 120 mg ER Tab PO SCH (12:06)
[2018-08-13] MEDS: Amylase/Lipase/Protease 5,000 Units ECC PO SCH ×3 (12:06→16:33)
--- NOTE | 2018-08-13 12:41 | CON ---
DATE: 08/10/2018 This is urology consult for stone management. HISTORY OF PRESENT ILLNESS: Mr. Leblanc is listed in the hospital, he is admitted with abdominal pain. GI is also seeing him and evaluating him. From Urology standpoint, he is very pleasant but seemingly not perfectly compliant gentleman. I had met him a couple of weeks back and I spoke to him, he reaches me directly on my cell phone, we discussed followups in the office. He previously is the patient of Dr. Lange and the patient of Dr. Love with a relatively large stone burden and their recommendation is for various treatment options, but he apparently cannot get to from the other doctor that he has been recommended to and he is asking to see if we can treat him and help him. I have explained to the patient the importance of getting him stone free as possible and that we will make all those efforts to do so as rapidly as possible. PAST MEDICAL AND SURGICAL: As listed on the chart. Multiple issues are . Relatively young 37-year-old gentleman with medical issues. MEDICATIONS: See the chart. ALLERGIES: SEE THE CHART. REVIEW OF SYSTEMS: As listed above. SOCIAL HISTORY: Negative, otherwise unremarkable. PHYSICAL EXAMINATION: GENERAL: A well-nourished male in no apparent distress. VITAL SIGNS: Noted. Body habitus noted (he is a fairly large, tall, big gentleman). The significance to this see below with the possibility for shock wave lithotripsy if the machine would work well. See below. There is no other specific abnormality. LABORATORY DATA: CT, etc, see the chart. DIAGNOSES: Urolithiasis, hematuria, abdominal pain. PLAN: The patient is admitted to the hospital and GI is also following him. It is difficult to evaluate sometimes the Urology symptoms versus the abdominal symptoms. It is also difficult to evaluate some of the different complaints for the patient. The concern of course is the potential for narcotic abuse. I explained to the patient that I am happy to help him and I will plan based on his general medical health situation, he knows he is young to do more likely in a hospital rather in a surgery center, although the possibility. We did discuss the stone center. The initial plan will be for him to start with the fresh cystoscopy, retrograde pyelogram, stent evaluation, stent changes and possible stent may be . It all depends on me and it would be difficult to tell, but the patient had some difficulty in the past. We will go slowly step-nicole, one step at a time. If the patient can be done as an outpatient, although he has difficulty getting back and coming back. Though if he is here, we are going to add him on the schedule from 08/13 which is Monday and then further plans can follow. If he is medically stable otherwise, he could be discharged home and we can do him as an outpatient, I explained all of this to the patient. But again he may feel fairly uncomfortable and . He has not been compliant to come back to get his or get followup or anything. So in summary, a very pleasant gentleman , but he does have a stone condition that he is addressing and we will also need to tease out various issues. Specifically, distinguishing between the different kinds of pain and the potential for narcotic abuse need to be addressed. The plan for now depending on patient's clinical course, we will plan for cystoscopy for 08/13, question is whether in or outpatient. Juan Ramon Summers MD
[2018-08-13] MEDS: Digoxin 125 mcg (0.125 mg) Tab PO SCH (13:46)
--- NOTE | 2018-08-13 14:58 | PN ---
DATE: 08/13/2018 REASON FOR CONSULTATION AND FOLLOWUP: Cardiac evaluation, paroxysmal atrial fibrillation, nonischemic cardiomyopathy. Admitted with abdominal pain, vomiting with hematuria. SUBJECTIVE: The patient denies any chest pain, shortness of breath or any palpitation. Complaining of flank pain. This note is in addition to dictated by our nurse practitioner, Hanny Hyatt. Patient's CVA status is stable. Patient is cleared to go for cystoscopy today with [id number] risk because of underlying comorbidity, but no contraindication. ASSESSMENT AND PLAN: In the interim, continue digoxin, carvedilol. verapamil and Eliquis. Patient is on Eliquis. If invasive procedure is required, Eliquis can be held for 24-48 hours. We will follow with you. Thank you Dr. Santiago for providing us the opportunity in taking care of the patient, Gareth Leblanc. Shayna Thomson MD
[2018-08-13 16:20] LABS: PH,URINE 5.5 (4.7-8.0); URINE BILIRUBIN MODERATE (NEGATIVE); URINE BLOOD LARGE (NEGATIVE); URINE GLUCOSE (UA) NEGATIVE (NEGATIVE); URINE LEUKOCYTE ESTERASE SMALL Leu/uL (NEGATIVE); URINE PROTEIN 30 mg/dL (<30 mg/dL); URINE UROBILINOGEN 0.2 E.U./dL (<1 E.U./dL)
[2018-08-13 16:23] LABS: URINE APPEARANCE SL CLOUDY (CLEAR); URINE COLOR YELLOW (YELLOW)
[2018-08-13 16:44] LABS: URINE BACTERIA MANY (NEG); URINE HYALINE CAST 0 - 2 /hpf; URINE RBC 15 - 20 /hpf (0-2)
[2018-08-13] MEDS ORDERED: Iohexol 240 (50 ml) ONE (20:43)
[2018-08-13] MEDS ORDERED: Midazolam 2 MG/2 ML VIAL ONE (21:17)
[2018-08-13] MEDS ORDERED: Propofol 10 mg/ml Inj (20 ML) ONE (21:17)
[2018-08-13] MEDS: cefTRIAXone (Rocephin) 1 gm Inj ONE ×2 (21:19→21:24)
[2018-08-13 22:12] VITALS: RESP 20
[2018-08-13 22:25] VITALS: O2SAT 98
--- NOTE | 2018-08-13 23:44 | PN ---
DATE: 08/13/2018 SUBJECTIVE: The patient is 37 years old, seen and examined, he is currently n.p.o. to go for cystoscopy later on today. Still complain of left leg discomfort. No nausea or vomiting. PHYSICAL EXAMINATION: VITAL SIGNS: He is afebrile, pulse 95, respirations 18, and blood pressure 121/84. LUNGS: Bilateral fair airflow. No rhonchi or crackles. HEART: S1 and S2 audible. ABDOMEN: Soft, obese, and nontender. No hepatosplenomegaly. NEUROLOGIC: He is awake, alert, oriented, and able to communicate. LABORATORY DATA: No new lab available today. Blood cultures were negative. ASSESSMENT: 1. Cystoscopy, status post stent placement. 2. Nonischemic cardiomyopathy. 3. Morbid obesity. 4. Chronic kidney disease. 5. Nephrolithiasis. 6. Status post cholecystectomy. 7. Gastroesophageal reflux disease. 8. Intermittent atrial fibrillation. 9. Recurrent pancreatitis. PLAN: We will advance his diet. Follow up his CBC and CMP in a.m. If his electrolyte is stable, possible discharge in a.m. Sammy Santiago MD
[2018-08-14] MEDS: HYDROmorphone 1 mg/ml ISec IVP PRN ×4 (00:10→12:13)
[2018-08-14] MEDS: Levalbuterol 1.25 MG/3 ML Inhal Soln UD IH SCH ×5 (01:36→13:33)
[2018-08-14] MEDS: Pantoprazole 40 mg EC Tab PO SCH (05:30)
[2018-08-14 06:57] LABS: EOS # 0.1 (0.0-0.7); EOS % 1.3 % (1.5-5.0); GRAN # 5.56 (1.4-6.5); GRAN % 63.6 % (50.0-68.0); HEMOGLOBIN 15.1 g/dL (14.0-18.0); LYMPH # 1.7 (1.2-3.4); LYMPH % 18.9 % (22.0-35.0); MEAN CELL VOLUME 92.5 fl (80.0-105.0); MEAN CORPUSCULAR HEMOGLOBIN 30.4 pg (25.0-35.0); MEAN CORPUSCULAR HGB CONC 32.9 g/dl (31.0-37.0); MEAN PLATELET VOLUME 10.2 fl (7.0-11.0); MONO # 1.4 (0.1-0.6); MONO % 16.2 % (1.0-6.0); RBC 4.96 10^6/uL (3.5-6.1); WHITE BLOOD COUNT 8.7 10^3/uL (4.5-11.0)
[2018-08-14 07:30] LABS: ALBUMIN 3.8 g/dL (3.0-4.8); ALT/SGPT 22 U/L (7-56); AST/SGOT 25 U/L (17-59); BLOOD UREA NITROGEN 30 mg/dL (7-21); CALCIUM 9.1 mg/dL (8.4-10.5); GFR NON-AFRICAN AMERICAN 52
--- NOTE | 2018-08-14 07:30 | CP.PCM.PN ---
Subjective - Date & Time of Evaluation Date of Evaluation: 08/14/18 Time of Evaluation: 06:35 - Subjective Subjective: No distress, Lying in bed semi fowlers position, awake, alert, abdominal discomfort Reason for consultation and follow up: Cardiac evaluation and follow up,history of atrial fibrillation,non- ischemic cardiomyopathy,admitted due to abdominal pain and vomiting Seen and examined by me and Dr. Thomson Objective - Vital Signs/Intake and Output Vital Signs (last 24 hours): Temp Pulse Resp BP Pulse Ox 97.5 F L 84 20 151/91 H 98 08/13/18 22:24 08/13/18 22:24 08/13/18 22:24 08/13/18 22:24 08/13/18 22:24 Intake and Output: 08/14/18 08/14/18 06:59 18:59 Intake Total 200 Balance 200 - Medications Medications: Current Medications Amylase (Pancrease 48395 U-5000 U-77602 U) 25,000 unit PO AC [facility] Last Admin: 08/13/18 16:33 Dose: Not Given Apixaban (Eliquis) 5 mg PO Q12 [facility]; Protocol Last Admin: 08/13/18 21:39 Dose: Not Given Carvedilol (Coreg) 3.125 mg PO BID [facility] Last Admin: 08/13/18 12:06 Dose: 3.125 mg Digoxin (Digoxin) 0.125 mg PO 1400 [facility] Last Admin: 08/13/18 13:46 Dose: Not Given Famotidine (Pepcid) 40 mg PO HS [facility] Last Admin: 08/13/18 21:39 Dose: Not Given Furosemide (Lasix) 40 mg PO 0800,1400 [facility] Last Admin: 08/13/18 13:46 Dose: Not Given Hydromorphone HCl (Dilaudid) 1 mg IVP Q4H PRN PRN Reason: Pain, moderate (4-7) Last Admin: 08/14/18 04:24 Dose: 1 mg Ketorolac Tromethamine (Toradol) 30 mg IVP ONCE PRN PRN Reason: Pain, moderate (4-7) Levalbuterol HCl (Xopenex) 1.25 mg IH [id number] [facility] Last Admin: 08/14/18 07:21 Dose: 1.25 mg Ondansetron HCl (Zofran Inj) 4 mg IVP Q6H PRN PRN Reason: Nausea/Vomiting Last Admin: 08/14/18 00:10 Dose: 4 mg Pantoprazole Sodium (Protonix Ec Tab) 40 mg PO 0600 [facility] Last Admin: 08/14/18 05:30 Dose: 40 mg Verapamil HCl (Calan Sr Tab) 120 mg PO DAILY [facility] Last Admin: 08/13/18 12:06 Dose: Not Given Verapamil HCl (Verapamil Inj) 2.5 mg IVP Q6H PRN PRN Reason: for HR above 130 - Labs Labs: 08/14/18 06:30 08/12/18 07:00 Assessment and Plan - Assessment and Plan (Free Text) Assessment: A 37 year old morbidly obese male who came in to the ER due to left flank pain with nausea and vomiting. History of non ischemic cardiomyopathy, diabetes, hypertension, hyperlipidemia, nephrolithiasis, and chronic pancreatitis, chronic back pain. Had a stent placed on left kidney 3 months ago.For Cystoscopy today. Patient cleared for procedure. No evidence of ischemia or chest pain. No evidence of congestive heart failure. Moderate to high risk considering co- morbidities. No contraindications for procedure. Status post cystoscopy retrograde extraction and insertion of pigtail stent yesterday. Plan: Status post cystoscopy retrograde extraction and insertion of pigtail stent yes terday. Feels better, Denies shortness of breath Heart rate controlled Blood pressure controlled Cardiac status stable on Eliquis 5 mg BID,Coreg 3.125 mg BID,Digoxin 0.125 mg daily, Lasix 40 mg BID Verapamil 120 mg daily Continue current medications Continue current treatment May discharge from cardiac standpoint Chart reviewed Will follow up Plan and treatment discussed with Dr. Thomson
--- NOTE | 2018-08-14 08:02 | CP.PCM.PN ---
<Kate Mullins - Last Filed: 08/14/18 07:59> Subjective - Date & Time of Evaluation Date of Evaluation: 08/14/18 Time of Evaluation: 07:59 - Subjective Subjective: Gastroenterology Fellow/PGY6 Progress Note Patient notes abdominal pain is slightly improved. States urination is better after stent exchange yesterday. States doesn't have much of an appetite but is tolerating regular diet. A 12-point review of systems negative except for as above. Objective - Vital Signs/Intake and Output Vital Signs (last 24 hours): Temp Pulse Resp BP Pulse Ox 97.5 F L 84 20 151/91 H 98 08/13/18 22:24 08/13/18 22:24 08/13/18 22:24 08/13/18 22:24 08/13/18 22:24 Intake and Output: 08/14/18 08/14/18 06:59 18:59 Intake Total 200 Balance 200 - Medications Medications: Current Medications Amylase (Pancrease 12664 U-5000 U-43351 U) 25,000 unit PO AC [facility] Last Admin: 08/13/18 16:33 Dose: Not Given Apixaban (Eliquis) 5 mg PO Q12 [facility]; Protocol Last Admin: 08/13/18 21:39 Dose: Not Given Carvedilol (Coreg) 3.125 mg PO BID [facility] Last Admin: 08/13/18 12:06 Dose: 3.125 mg Digoxin (Digoxin) 0.125 mg PO 1400 [facility] Last Admin: 08/13/18 13:46 Dose: Not Given Famotidine (Pepcid) 40 mg PO HS [facility] Last Admin: 08/13/18 21:39 Dose: Not Given Furosemide (Lasix) 40 mg PO 0800,1400 [facility] Last Admin: 08/13/18 13:46 Dose: Not Given Hydromorphone HCl (Dilaudid) 1 mg IVP Q4H PRN PRN Reason: Pain, moderate (4-7) Last Admin: 08/14/18 04:24 Dose: 1 mg Ketorolac Tromethamine (Toradol) 30 mg IVP ONCE PRN PRN Reason: Pain, moderate (4-7) Levalbuterol HCl (Xopenex) 1.25 mg IH [id number] [facility] Last Admin: 08/14/18 07:21 Dose: 1.25 mg Ondansetron HCl (Zofran Inj) 4 mg IVP Q6H PRN PRN Reason: Nausea/Vomiting Last Admin: 08/14/18 00:10 Dose: 4 mg Pantoprazole Sodium (Protonix Ec Tab) 40 mg PO 0600 [facility] Last Admin: 08/14/18 05:30 Dose: 40 mg Verapamil HCl (Calan Sr Tab) 120 mg PO DAILY [facility] Last Admin: 08/13/18 12:06 Dose: Not Given Verapamil HCl (Verapamil Inj) 2.5 mg IVP Q6H PRN PRN Reason: for HR above 130 - Labs Labs: 08/14/18 06:30 08/14/18 06:30 - Constitutional Appears: Non-toxic, No Acute Distress - Head Exam Head Exam: ATRAUMATIC, NORMOCEPHALIC - Eye Exam Eye Exam: EOMI, PERRL. absent: Scleral icterus Pupil Exam: PERRL. absent: Miosis, Mydriatic - ENT Exam ENT Exam: Mucous Membranes Moist, Normal Oropharynx - Neck Exam Neck Exam: Full ROM, Normal Inspection - Respiratory Exam Respiratory Exam: Clear to Ausculation Bilateral. absent: Rales, Rhonchi, Wheezes - Cardiovascular Exam Cardiovascular Exam: RRR, +S1, +S2. absent: Gallop, Rubs - GI/Abdominal Exam GI & Abdominal Exam: Soft, Tenderness, Normal Bowel Sounds. absent: Distended, Firm, Guarding, Rigid, Organomegaly, Rebound Additional comments: LUQ discomfort to palpation - Extremities Exam Extremities Exam: Normal Inspection. absent: Pedal Edema - Neurological Exam Neurological Exam: Alert, Awake - Psychiatric Exam Psychiatric exam: Normal Affect, Normal Mood - Skin Skin Exam: Dry, Intact, Normal Color, Warm Assessment and Plan - Assessment and Plan (Free Text) Assessment: 37 year old morbidly obese male with PMH of chronic pancreatitis on Pancrease, renal insufficiency, Afib on Eliquis, nonischemic cardiomyopathy, and nephrolithiasis s/p left ureteral stent 05/2018 presenting with abdominal pain and dark stools. Active treatment of intractable abdominal pain. Prior colonoscopy 2015 with fair prep with recommend outpatient repeat for which patient has not followed up. Plan: -cystoscopy yesterday-left ureteral stent exchange -continue PPI ACB and zantac QHS -low fat diet, small frequent meals -continue Pancrease 25,000 Units Lipase TID with meals -will discuss timing for EGD scheduling -will benefit from outpatient elective colonoscopy -will follow clinical course <Souleymane Choe V - Last Filed: 08/15/18 00:01> Objective - Vital Signs/Intake and Output Vital Signs (last 24 hours): Temp Pulse Resp BP Pulse Ox 98.4 F 77 20 128/92 H 98 08/14/18 06:00 08/14/18 06:00 08/14/18 06:00 08/14/18 08:09 08/14/18 06:00 - Labs Labs: 08/14/18 06:30 08/14/18 06:30 Attending/Attestation - Attestation I have personally seen and examined this patient.: Yes I have fully participated in the care of the patient.: Yes I have reviewed all pertinent clinical information, including history, physical exam and plan: Yes Notes (Text): This is an addendum to GI progress report dictated by the GI Fellow.The patient was seen and examined earlier. Medical records, lab studies, imagings were reviewed. Last 24 hours events reviewed. Agreed with the above treatment plan as outlined in GI Fellow 's notes with the addition of the following 08/15/18 00:01
[2018-08-14] MEDS: Amylase/Lipase/Protease 5,000 Units ECC PO SCH ×2 (08:11→11:14)
[2018-08-14 08:12] VITALS: BP 128/92
--- NOTE | 2018-08-14 08:36 | RAD ---
Date of service: 08/13/2018 PROCEDURE: Retrograde pyelogram HISTORY: R/O OBSTRUCTION COMPARISON: TECHNIQUE: 44.4 sec of fluoro time. 40.17 mGy cumulative dose. 14 images were submitted FINDINGS: There is placement of a left ureteral stent IMPRESSION: As above
[2018-08-14 08:59] VITALS: PULSE 77; TEMP 98.4
[2018-08-14] MEDS: Verapamil 120 mg ER Tab PO SCH (09:53)
--- NOTE | 2018-08-14 11:44 | PN ---
DATE: 08/14/2018 REASON FOR THE CONSULTATION: Followup cardiac evaluation, history of nonischemic cardiomyopathy, history of chronic atrial fibrillation. The patient denies any chest pain, shortness of breath or any palpitation. Complained of abdominal pain. Waiting for endoscopy to be done as per the patient. Yesterday, the patient underwent cystoscopy. This note is an addition to dictated by our nurse practitioner. CVS status is stable. Continue verapamil. Continue Eliquis. Continue digoxin. Continue Lasix. Okay to discharge from cardiology point of view when stable from other specialists. Thank you, Dr. Santiago for providing us the opportunity in taking care of the patient, Gareth Leblanc. Shayna Thomson MD
--- NOTE | 2018-08-14 13:44 | PN ---
DATE: 08/14/2018 SUBJECTIVE: The patient is currently seen lying in bed. He states he is having abdominal pain and he has not eaten in several days. He states that he is likely going to go home today. The patient states that he had a ureteral stent exchange done yesterday. He states that the new stent is less painful. He continues to complain of abdominal pain secondary to chronic pancreatitis. MEDICATIONS: Medication list reviewed. The patient is currently on Calan, Coreg, digoxin, Dilaudid p.r.n., Eliquis, Lasix, pancreatic enzymes, Pepcid, Protonix, Toradol, verapamil, Xopenex and Zofran. OBJECTIVE: INTAKE/OUTPUT: Intake is 200, output is not charted. Last charted weight is 451 pounds. VITAL SIGNS: Blood pressure is 128/92, temperature is 98.4, respiratory rate is 20 with a pulse of 77. HEENT: Shows him to be normocephalic, atraumatic. Conjunctivae are pink. Sclerae are nonicteric. NECK: Supple. No neck vein distention. CHEST: Clear to auscultation and percussion with no rales, rhonchi or wheezing. CARDIOVASCULAR: Shows an irregular S1, S2. Positive MR/TR. No ST, no S4, no rub. ABDOMEN: Obese. Mild tenderness on palpation of the midepigastric area. Mild distention. No rebound or guarding. EXTREMITIES: Show puffy legs, but no pitting edema. No cyanosis or clubbing. LABORATORY DATA AND IMAGING: CBC: White blood cell count today down to 8.7, hemoglobin is 15.1 with a platelet count of 234,000. Chemistries showed normal electrolytes. BUN 30, at his baseline. Creatinine down to 1.5, at his baseline. Calcium normal at 9.1. Last phosphorus 4.4 with a magnesium level of 2.1. Liver enzymes are normal. Albumin level is 3.8. Urine showed red blood cells with white blood cells. Microbiology: Blood cultures are negative at 5 days. No urine cultures were sent. ASSESSMENT: 1. Hematuria with history of left hydronephrosis. The patient had a ureteral stent exchange done yesterday. 2. Chronic pancreatitis with no significant p.o. intake. Nausea, vomiting. The patient remains on pancreatic enzyme replacement therapy. 3. History of cardiomyopathy, ejection fraction 33% secondary to hypertensive cardiomyopathy. The patient continues on diuretic therapy for prevention of edema and congestive heart failure. In the past, he has also received Zaroxolyn and Aldactone. 4. History of hypertension. Blood pressure controlled on present medical therapy. 5. History of chronic kidney disease stage 3. Creatinine is stable at 1.5. 6. History of atrial fibrillation. The patient remains on Eliquis. He also continues on verapamil and Coreg for rate control. The patient also was on digoxin. 7. History of morbid obesity. Weight is fluctuating around 450 pounds. PLAN: 1. Continue present diuretic therapy. BUN and creatinine acceptable at this level. 2. Continue chronic anticoagulation. 3. The patient appears to have had a positive response to replacement of the ureteral stent. 4. I would like to see the patient start a diet prior to discharge home in light of his history of chronic pancreatitis and the fact that he has not been eating in several days. Sean Reich MD
--- NOTE | 2018-08-14 22:55 | DS ---
HISTORY OF PRESENT ILLNESS: The patient is 37 years old who was admitted with left flank pain. He states he felt nauseous, was unable to hold even liquids, had been initially on IV fluids and then started on clear liquid. The patient was evaluated by Dr. Summers who did cystoscopy and changed then the stent. The patient was seen and examined today. PHYSICAL EXAMINATION: VITAL SIGNS: He is afebrile, pulse 77, respirations 20, blood pressure 128/92. LUNGS: Bilateral fair airflow. No rhonchi or crackle. HEART: S1 and S2 audible. ABDOMEN: Soft, obese, nontender. No rebound. No guarding. NEUROLOGIC: The patient is awake, alert, oriented, communicative, ambulatory. Limited exam. LABORATORY DATA: WBC is 8.7, hemoglobin 15, hematocrit 45, platelets 234. Chemistry: Sodium 135, potassium 3.9, chloride 98, CO2 of 25, BUN 30, creatinine 1.5, blood sugar of 84. Blood culture, urine cultures are negative. ASSESSMENT: 1. History of nephrolithiasis. 2. Hypertension. 3. Nonischemic cardiomyopathy. 4. Status post ureteral stent placement. 5. History of recurrent pancreatitis. 6. Left ventricular systolic dysfunction with ejection fraction of 33%. 7. Chronic kidney disease. 8. Intermittent atrial fibrillation. PLAN: The patient is clinically stable. He will follow up with Dr. Choe to have endoscopy, colonoscopy done as an outpatient. We will resume his medication including Eliquis, Pepcid, Lasix, spironolactone, metolazone, Coreg and digoxin, and he is also on verapamil 120 daily. Sammy Santiago MD
--- NOTE | 2018-08-15 08:25 | OP ---
PROCEDURE DATE: 08/13/2018 UROLOGY OPERATIVE NOTE PREOPERATIVE DIAGNOSES: Urolithiasis, heavy stone burden, retained stent. POSTOPERATIVE DIAGNOSES: Urolithiasis, heavy stone burden, retained stent. PROCEDURE: Cystoscopy, removal of left double J stent, retrograde pyelogram, insertion of a double J stent. SURGEON: Juan Ramon Summers MD BLOOD LOSS: Less than 10 mL. COMPLICATIONS: There were no complications. FINDINGS: 1. Normal anterior urethra. 2. Relatively encrusted stent that I do not get a wire through. 3. Retrograde pyelogram performed and submitted to the Radiology. 4. Double-J stent is inserted. See the plan listed below. INDICATIONS: See history and physical. A very pleasant gentleman who apparently got a stent quite sometime, previously he was seeing Dr. Lange and Dr. Love, they recommended treatment elsewhere percutaneously. At this point, we just going to at least put the stenting. We will discuss further plan afterwards. See the plans listed below. The patient has been in the hospital, he underwent various treatments, he had multiple medical issues, he has abdominal pain, been seen by GI, Medicine, etc. Urology standpoint, stent is bothering him and we discussed various options. He is very pleasant, but somewhat noncompliant and not come to the office despite discussion about what doing himself. Though we just today while he has been in the hospital, to have a fresh stent. Urology plans indicate that stent been there for a while and treated and some what interrupted, so we plan to have the patient had a fresh stent in place. PROCEDURE: After obtaining informed consent, the patient was placed on the table, routine monitors were placed. Timeout was called. We confirmed the positioning. We introduced the cystoscope via urethra. Anterior urethra was normal. No strictures. Verumontanum is minimally visually occlusive (normal for a 37-year-old gentleman). Ureteral stent was identified. Pictures were taken, it is fairly heavily encrusted. I was able to pull it down gently, it comes down nicely. We can get a wire through, it went adjacent to this area, put the wire up to the kidney, put an open-ended ureteral catheter, injected contrast material, we removed the old double-J stent. We now put a wire back up to the kidney. We confirmed our positioning on fluoroscopic imaging through the double-J stent. We emptied the bladder. The patient tolerated the procedure without complications. We discussed further plans with the patient, stent and will be cleared to discharge. Juan Ramon Summers MD
== END 2018-08-14 15:12 | disposition home or self-care (01) | DRG 660 ==
LOC: ED 21:40 → INTOOBSV 08-09 00:33 → ERH 08-09 00:33 → 2RNO 08-09 02:33 → OBSVTOIN 08-10 18:29 → 5RNO 08-10 20:12
PROVIDERS: ADMIT Internal Medicine; ATTEND Internal Medicine
PROC: 3E0F7GC Introduction of Other Therapeutic Substance into Respiratory Tract, Via Natural or Artificial Opening (ICD-10-PCS; 2018-08-10)
PROC: 0TP98DZ Removal of Intraluminal Device from Ureter, Via Natural or Artificial Opening Endoscopic (ICD-10-PCS; 2018-08-13)
PROC: BT1B1ZZ Fluoroscopy of Bladder and Urethra using Low Osmolar Contrast (ICD-10-PCS; 2018-08-13)
PROC: 0T778DZ Dilation of Left Ureter with Intraluminal Device, Via Natural or Artificial Opening Endoscopic (ICD-10-PCS; principal; 2018-08-13 17:30)
DX: N39.0 Urinary tract infection, site not specified (principal); I13.0 Hypertensive heart and chronic kidney disease with heart failure and stage 1 through stage 4 chronic kidney disease, or unspecified chronic kidney disease; I43 Cardiomyopathy in diseases classified elsewhere; Z68.43 Body mass index [BMI] 50.0-59.9, adult; K86.0 Alcohol-induced chronic pancreatitis; I50.9 Heart failure, unspecified; N18.3 Chronic kidney disease, stage 3 (moderate); I25.10 Atherosclerotic heart disease of native coronary artery without angina pectoris; I48.2 Chronic atrial fibrillation; I48.0 Paroxysmal atrial fibrillation; E11.22 Type 2 diabetes mellitus with diabetic chronic kidney disease; E66.01 Morbid (severe) obesity due to excess calories; N20.0 Calculus of kidney; G89.29 Other chronic pain; E78.5 Hyperlipidemia, unspecified; Z91.19 Patient's noncompliance with other medical treatment and regimen; F17.210 Nicotine dependence, cigarettes, uncomplicated; G47.30 Sleep apnea, unspecified; K21.9 Gastro-esophageal reflux disease without esophagitis; Z79.01 Long term (current) use of anticoagulants

== ENCOUNTER 2018-10-24 21:29 | Inpatient (IN) | payer BC ==
[2018-10-24 21:46] VITALS: BMI 55.0
[2018-10-24] MEDS ORDERED: Morphine 4 mg/ml ISec IVP STA (22:50)
[2018-10-24 23:09] LABS: BASO # 0.02 K/mm3 (0.0-2.0); BASO % 0.2 % (0.0-3.0); EOS % 0.3 % (1.5-5.0); GRAN # 7.21 (1.4-6.5); GRAN % 70.5 % (50.0-68.0); HEMOGLOBIN 13.6 g/dL (14.0-18.0); LYMPH # 1.6 (1.2-3.4); LYMPH % 15.2 % (22.0-35.0); MEAN CORPUSCULAR HEMOGLOBIN 30.4 pg (25.0-35.0); MEAN CORPUSCULAR HGB CONC 32.4 g/dl (31.0-37.0); MEAN PLATELET VOLUME 10.1 fl (7.0-11.0); MONO # 1.4 (0.1-0.6); MONO % 13.8 % (1.0-6.0); RBC 4.47 10^6/uL (3.5-6.1); RED CELL DISTRIBUTION WIDTH 16.1 % (11.5-14.5); WHITE BLOOD COUNT 10.2 10^3/uL (4.5-11.0)
--- NOTE | 2018-10-24 23:10 | ED PDOC ---
Arrival/HPI - General Chief Complaint: Shortness Of Breath Time Seen by Provider: 10/24/18 21:38 Historian: Patient - History of Present Illness Narrative History of Present Illness (Text): 10/24/18 23:07 37 year old male with a past medical history of non-ischemic cardiomyopathy, CHF, diabetes, hypertension, hyperlipidemia, nephrolithiasis, and chronic pancreatitis, presents to the emergency department with worsening shortness of breath, for 3 days. Patient states he is always short of breath, but has worsened with associated increased bilateral leg swelling. Patient informs taking Lasix, which he feels is not helping anymore. Patient informs or chest pain and right flank pain. Patient states he has a kidney stone which he should have removed, but is unable to have surgery due to weight, and inability to fit on OR table. Patient denies any fevers, chills, headache, dizziness, nausea, vomiting, diarrhea, or any other complaint. Time/Duration: < week (3 days) Symptom Onset: Gradual Symptom Course: Unchanged, Worsening Activities at Onset: Light Context: Home Past Medical History - Provider Review Nursing Documentation Reviewed: Yes - Past History Past History: Non-Contributing - Infectious Disease Hx of Infectious Diseases: None - Tetanus Immunization Tetanus Immunization: Unknown - Cardiac Hx Cardiac Disorders: Yes (Non ischemic cardiomyopathy, A fib on Eliquis) Hx Congestive Heart Failure: Yes (on Digoxin) - Pulmonary Hx Respiratory Disorders: Yes Hx Sleep Apnea: (pt denies sleep apnea) Other/Comment: trouble sleeping due to sob - Neurological Hx Neurological Disorder: No - HEENT Hx HEENT Disorder: No - Renal Hx Renal Disorder: Yes (hydronephrosis, L ureteral pigtail stent) Hx Kidney Stones: Yes Hx Pyelonephritis: Yes Hx Renal Failure: Yes Other/Comment: left calculus 11/2017 - Endocrine/Metabolic Hx Endocrine Disorders: No - Hematological/Oncological Hx Blood Transfusions: No Hx Blood Transfusion Reaction: No - Integumentary Hx Dermatological Disorder: Yes (foul smelling body odor) Other/Comment: pt refusing to have skin touched but did notice some dry skin to feet - Musculoskeletal/Rheumatological Hx Musculoskeletal Disorders: No - Gastrointestinal Hx Gastrointestinal Disorders: Yes (morbidly obese, abd pain) Hx Diverticulitis: Yes Hx Gall Bladder Disease: Yes Hx Gastroesophageal Reflux: Yes Hx Pancreatitis: Yes (quit drinking since pancreatitis) - Genitourinary/Gynecological Hx Genitourinary Disorders: Yes (urinary retention, dysuria) Hx Hematuria: Yes Hx Urinary Tract Infection: Yes Other/Comment: pylonephritis - Psychiatric Hx Psychophysiologic Disorder: Yes Hx Substance Use: No Other/Comment: etoh in the past none since pancreatitis - Past Surgical History Past Surgical History: No Previous - Surgical History Hx Cholecystectomy: Yes Other/Comment: left ureteral pigtail stent and replacement, cysto - Anesthesia Hx Anesthesia Reactions: No Hx Malignant Hyperthermia: No - Suicidal Assessment Feels Threatened In Home Enviroment: No Family/Social History - Physician Review Nursing Documentation Reviewed: Yes Family/Social History: No Known Family HX Smoking Status: Heavy Smoker > 10 Cigarettes Daily Hx Alcohol Use: No Hx Substance Use: No Hx Substance Use Treatment: No Allergies/Home Meds Allergies/Adverse Reactions: Allergies LUZ Inhibitors Allergy (Severe, Verified 07/22/18 14:37) ANGIOEDEMA Home Medications: Home Meds Medication Instructions Recorded Confirmed RX: Amylase/Lipase/Protease 3 tab PO AC 12/13/17 07/22/18 [Pancrease 54393 U-5000 U-[id number] U] Review of Systems - Physician Review All systems were reviewed & negative as marked: Yes - Review of Systems Constitutional: absent: Fevers, Night Sweats Respiratory: SOB Cardiovascular: Chest Pain Gastrointestinal: Abdominal Pain (right flank pain). absent: Diarrhea, Nausea, Vomiting Neurological: absent: Headache, Dizziness Physical Exam Vital Signs Reviewed: Yes Vital Signs Temp Pulse Resp BP Pulse Ox 10/24/18 22:45 142/83 10/24/18 22:01 98.4 F 110 H 20 121/70 92 L 10/24/18 21:46 98 F 124 H 18 121/70 92 L Temperature: Afebrile Blood Pressure: Normal Pulse: Tachycardic Respiratory Rate: Normal Appearance: Positive for: Well-Appearing, Non-Toxic, Comfortable Pain Distress: None Mental Status: Positive for: Alert and Oriented X 3 - Systems Exam Head: Present: Atraumatic, Normocephalic Pupils: Present: PERRL Extroacular Muscles: Present: EOMI Conjunctiva: Present: Normal Mouth: Present: Moist Mucous Membranes Neck: Present: Normal Range of Motion Respiratory/Chest: Present: Clear to Auscultation, Good Air Exchange, Rhonchi (mild rhonchi bilaterally). No: Respiratory Distress, Accessory Muscle Use Cardiovascular: Present: Regular Rate and Rhythm, Normal S1, S2. No: Murmurs Abdomen: Present: Tenderness (Right flank tenderness). No: Distention, Peritoneal Signs Back: Present: Normal Inspection Upper Extremity: Present: Normal Inspection. No: Cyanosis, Edema Lower Extremity: Present: Edema (4+ pitting edema with significant swelling bilaterally) Neurological: Present: GCS=15, CN II-XII Intact, Speech Normal Skin: Present: Warm, Dry, Normal Color. No: Rashes Psychiatric: Present: Alert, Oriented x 3, Normal Insight, Normal Concentration Medical Decision Making ED Course and Treatment: 10/24/18 23:14 Impression: 37 year old male presents with shortness of breath and leg swelling Plan: -- CMP, BNP, Trop -- CBC -- Chest X-ray (shows significant vascular congestion) -- Lasix -- Morphine -- Urinalysis -- Reassess and disposition Prior Visits: Notes and results from previous visits were reviewed. Progress Notes: Patient asking for something for his kidney stone pain. 4mg morphine ivp ordered. Lasix 80mg ivp ordered for diuresis. Labs, EKG, and CXR done, and results reviewed. Will admit for CHF exacerbation. Case discussed with Dr. Santiago, patient's PMD. Accepts patient for admission to her service. - RAD Interpretation Radiology Orders: 10/24/18 22:41 CHEST PORTABLE [RAD] Stat - EKG Interpretation EKG Interpretation (Text): 21:48- atrial fibrillation with RVR, rate 127. Normal axis. Occasional PVC. Prolonged QTc. No ST elevation. Interpreted by ED Physician: Yes Type: 12 lead EKG - Medication Orders Current Medication Orders: Discontinued Medications Furosemide (Lasix) 80 mg IVP STAT STA Stop: 10/24/18 22:42 Last Admin: 10/24/18 22:45 Dose: 80 mg MAR Blood Pressure Document 10/24/18 22:45 CNR (Rec: 10/24/18 22:49 CNR [id number]) Blood Pressure Blood Pressure (100/60-150/90) 142/83 IVP Administration Document 10/24/18 22:45 CNR (Rec: 10/24/18 22:49 CNR [id number]) Charges for Administration # of IVP Administrations 1 Morphine Sulfate (Morphine) 4 mg IVP STAT STA Stop: 10/24/18 22:51 Last Admin: 10/24/18 22:59 Dose: 4 mg MAR Pain Assessment Document 10/24/18 22:59 CNR (Rec: 10/24/18 22:59 CNR [id number]) Pain Reassessment Is this a pain reassessment? No IVP Administration Document 10/24/18 22:59 CNR (Rec: 10/24/18 22:59 CNR [id number]) Charges for Administration # of IVP Administrations 1 - Scribe Statement The provider has reviewed the documentation as recorded by the Toyibjudy Garcia Provider Scribe Attestation: All medical record entries made by the Scribe were at my direction and personally dictated by me. I have reviewed the chart and agree that the record accurately reflects my personal performance of the history, physical exam, medical decision making, and the department course for this patient. I have also personally directed, reviewed, and agree with the discharge instructions and disposition. Disposition/Present on Arrival - Present on Arrival Any Indicators Present on Arrival: No History of DVT/PE: No History of Uncontrolled Diabetes: No Urinary Catheter: No History of Decub. Ulcer: No History Surgical Site Infection Following: None - Disposition Have Diagnosis and Disposition been Completed?: Yes Diagnosis: Congestive heart failure Disposition: HOSPITALIZED Disposition Time: 23:46 Condition: FAIR
[2018-10-24 23:15] LABS: URINE BILIRUBIN SMALL (NEGATIVE); URINE BLOOD LARGE (NEGATIVE); URINE GLUCOSE (UA) NEGATIVE (NEGATIVE); URINE LEUKOCYTE ESTERASE TRACE Leu/uL (NEGATIVE); URINE PROTEIN 100 mg/dL (<30 mg/dL); URINE UROBILINOGEN 0.2 E.U./dL (<1 E.U./dL)
[2018-10-24 23:19] LABS: ALBUMIN 4.1 g/dL (3.0-4.8); ALT/SGPT 21 U/L (7-56); AST/SGOT 21 U/L (17-59); BLOOD UREA NITROGEN 18 mg/dL (7-21); CALCIUM 9.4 mg/dL (8.4-10.5); GFR NON-AFRICAN AMERICAN > 60
[2018-10-24 23:24] LABS: URINE APPEARANCE SL CLOUDY (CLEAR); URINE COLOR YELLOW (YELLOW)
[2018-10-24 23:29] LABS: URINE RBC TNTC /hpf (0-2)
[2018-10-24 23:30] LABS: URINE BACTERIA SMALL /hpf; URINE FINE GRANULAR CAST 0 - 2 /hpf
[2018-10-24 23:33] LABS: B-TYPE NATRIURETIC PEPTIDE 2190 pg/mL (0-450); TROPONIN I 0.03 ng/mL
[2018-10-25] MEDS: Albuterol-Ipratrop 3 mg / 0.5 (3 ml) UD IH SCH ×2 (01:26→07:55)
[2018-10-25] MEDS: HYDROmorphone 1 mg/ml ISec IVP PRN ×6 (01:57→22:53)
[2018-10-25 06:44] LABS: ALBUMIN 3.8 g/dL (3.0-4.8); ALT/SGPT 23 U/L (7-56); AST/SGOT 22 U/L (17-59); BLOOD UREA NITROGEN 20 mg/dL (7-21); GFR NON-AFRICAN AMERICAN > 60
[2018-10-25 06:51] LABS: HEMOGLOBIN 12.8 g/dL (14.0-18.0); MEAN CELL VOLUME 93.5 fl (80.0-105.0); MEAN CORPUSCULAR HEMOGLOBIN 29.8 pg (25.0-35.0); MEAN CORPUSCULAR HGB CONC 31.8 g/dl (31.0-37.0); MEAN PLATELET VOLUME 10.1 fl (7.0-11.0); RBC 4.3 10^6/uL (3.5-6.1); RED CELL DISTRIBUTION WIDTH 16.2 % (11.5-14.5); WHITE BLOOD COUNT 9.4 10^3/uL (4.5-11.0)
--- NOTE | 2018-10-25 08:06 | RAD ---
Date of service: 10/24/2018 HISTORY: CHF COMPARISON: Comparison chest 08/08/2018. FINDINGS: LUNGS: Pulmonary vascular congestive changes with diffuse bilateral infiltrates right greater than left. Questionable small bilateral effusions.. Findings consistent with this patient's history of CHF. PLEURA: As above. No pneumothorax apparent. CARDIOVASCULAR: No aortic atherosclerotic calcification present. Cardiomegaly.. OSSEOUS STRUCTURES: No significant abnormalities. VISUALIZED UPPER ABDOMEN: Normal. OTHER FINDINGS: None. IMPRESSION: Pulmonary vascular congestive changes with diffuse bilateral infiltrates right greater than left. Questionable small bilateral effusions.. Findings consistent with this patient's history of CHF.
--- NOTE | 2018-10-25 10:58 | CP.PCM.CON ---
History of Present Illness - History of Present Illness History of Present Illness: Awake, alert, no distress, trying to sleep Reason for consultation: Cardiac evaluation of shortness of breath and leg swelling Brief history of present illness: A 37 year old male morbidly obese who came in to the ER due to shortness of breath and leg swelling. He is known to service due to multiple admissions of similar symptoms. History of non-ischemic cardiomyopathy, CHF, diabetes, hypertension, hyperlipidemia, nephrolithiasis, and chronic pancreatitis,chronic atrial fibrillation, on Eliquis. Seen and examined by me and Dr. Thomson Review of Systems - Review of Systems All systems: reviewed and no additional remarkable complaints except Review of Systems: as per HPI Past Patient History - Infectious Disease Hx of Infectious Diseases: None - Tetanus Immunizations Tetanus Immunization: Unknown - Past Medical History & Family History Past Medical History?: Yes - Past Social History Smoking Status: Heavy Smoker > 10 Cigarettes Daily - CARDIAC Hx Cardiac Disorders: Yes (Non ischemic cardiomyopathy, A fib on Eliquis) Hx Congestive Heart Failure: Yes (on Digoxin) - PULMONARY Hx Respiratory Disorders: Yes Hx Sleep Apnea: (pt denies sleep apnea) Other/Comment: trouble sleeping due to sob - NEUROLOGICAL Hx Neurological Disorder: No - HEENT Hx HEENT Problems: No - RENAL Hx Chronic Kidney Disease: Yes (hydronephrosis, L ureteral pigtail stent) Hx Kidney Stones: Yes Hx Pyelonephritis: Yes Hx Renal Failure: Yes Other/Comment: left calculus 11/2017 - ENDOCRINE/METABOLIC Hx Endocrine Disorders: No - HEMATOLOGICAL/ONCOLOGICAL Hx Blood Transfusions: No Hx Blood Transfusion Reaction: No - INTEGUMENTARY Hx Dermatological Problems: Yes (foul smelling body odor) Other/Comment: pt refusing to have skin touched but did notice some dry skin to feet - MUSCULOSKELETAL/RHEUMATOLOGICAL Hx Musculoskeletal Disorders: No - GASTROINTESTINAL Hx Gastrointestinal Disorders: Yes (morbidly obese, abd pain) Hx Diverticulitis: Yes Hx Gall Bladder Disease: Yes Hx Gastroesophageal Reflux: Yes Hx Pancreatitis: Yes (quit drinking since pancreatitis) - GENITOURINARY/GYNECOLOGICAL Hx Genitourinary Disorders: Yes (urinary retention, dysuria) Hx Hematuria: Yes Hx Urinary Tract Infection: Yes Other/Comment: pylonephritis - PSYCHIATRIC Hx Psychophysiologic Disorder: Yes Hx Substance Use: No Other/Comment: etoh in the past none since pancreatitis - SURGICAL HISTORY Hx Cholecystectomy: Yes Other/Comment: left ureteral pigtail stent and replacement, cysto - ANESTHESIA Hx Anesthesia Reactions: No Hx Malignant Hyperthermia: No Meds Allergies/Adverse Reactions: Allergies Allergy/AdvReac Type Severity Reaction Status Date / Time LUZ Inhibitors Allergy Severe ANGIOEDEMA Verified 07/22/18 14:37 - Medications Medications: Current Medications Albuterol/Ipratropium (Duoneb 3 Mg/0.5 Mg (3 Ml) Ud) 3 ml IH [id number] ELSIE Last Admin: 10/25/18 07:55 Dose: 3 ml Amylase (Pancrease 75970 U-5000 U-[id number] U) unit PO AC ELSIE Apixaban (Eliquis) 5 mg PO Q12 ELSIE; Protocol Carvedilol (Coreg) 3.125 mg PO BID ELSIE Famotidine (Pepcid) 20 mg PO DAILY ELSIE Furosemide (Lasix) 40 mg IVP BID ELSIE Hydromorphone HCl (Dilaudid) 1 mg IVP Q4H PRN PRN Reason: Pain, severe (8-10) Last Admin: 10/25/18 10:09 Dose: 1 mg Spironolactone (Aldactone) 25 mg PO BID ELSIE Verapamil HCl (Calan Sr Tab) 120 mg PO DAILY ELSIE Physical Exam - Constitutional Appears: Non-toxic, No Acute Distress - Head Exam Head Exam: NORMAL INSPECTION, NORMOCEPHALIC - Eye Exam Eye Exam: Normal appearance Pupil Exam: NORMAL ACCOMODATION - ENT Exam ENT Exam: Mucous Membranes Moist - Respiratory Exam Respiratory Exam: Decreased Breath Sounds, Clear to Auscultation Bilateral, NORMAL BREATHING PATTERN - Cardiovascular Exam Cardiovascular Exam: Irregular Rhythm, +S1, +S2 Additional comments: Telemetry Afib/aflutter - GI/Abdominal Exam GI & Abdominal Exam: Normal Bowel Sounds, Soft - Extremities Exam Additional comments: 4+leg edema - Neurological Exam Neurological exam: Alert, Oriented x3 - Psychiatric Exam Psychiatric exam: Normal Affect, Normal Mood - Skin Skin Exam: Diaphoretic, Warm Results - Vital Signs Recent Vital Signs: Last Vital Signs Temp 98.4 F 10/25/18 06:00 Pulse 113 H 10/25/18 06:00 Resp 19 10/25/18 06:00 BP 119/70 10/25/18 06:00 Pulse Ox 97 10/25/18 06:00 - Labs Result Diagrams: 10/25/18 06:10 10/25/18 06:10 Labs: Laboratory Results - last 24 hr 10/24/18 10/24/18 10/24/18 22:59 23:04 23:04 WBC 10.2 RBC 4.47 Hgb 13.6 L Hct 42.0 MCV 94.0 MCH 30.4 MCHC 32.4 RDW 16.1 H Plt Count 253 MPV 10.1 Gran % 70.5 H Lymph % (Auto) 15.2 L [place] % (Auto) 13.8 H Eos % (Auto) 0.3 L Baso % (Auto) 0.2 Gran # 7.21 H Lymph # (Auto) 1.6 [place] # (Auto) 1.4 H Eos # (Auto) 0.0 Baso # (Auto) 0.02 Sodium 138 Potassium 4.8 Chloride 107 Carbon Dioxide 23 Anion Gap 12 BUN 18 Creatinine 1.1 Est GFR ( Amer) > 60 Est GFR (Non-Af Amer) > 60 Random Glucose 93 Calcium 9.4 Total Bilirubin 0.8 AST 21 ALT 21 Alkaline Phosphatase 91 Troponin I 0.03 NT-Pro-B Natriuret Pep 2190 H Total Protein 8.2 Albumin 4.1 Globulin 4.1 Albumin/Globulin Ratio 1.0 L Urine Color Yellow Urine Appearance Sl cloudy Urine pH 6.0 Ur Specific [place] >= 1.030 Urine Protein 100 H Urine Glucose (UA) Negative Urine Ketones Trace H Urine Blood Large H Urine Nitrate Negative Urine Bilirubin Small H Urine Urobilinogen 0.2 Ur Leukocyte Esterase Trace H Urine RBC Tntc H Urine WBC 1 - 3 Ur Epithelial Cells 3 - 4 Urine Bacteria Small Fine Granular Casts 0 - 2 10/25/18 10/25/18 06:10 06:10 WBC 9.4 RBC 4.30 Hgb 12.8 L Hct 40.2 L MCV 93.5 MCH 29.8 MCHC 31.8 RDW 16.2 H Plt Count 247 MPV 10.1 Gran % Lymph % (Auto) [place] % (Auto) Eos % (Auto) Baso % (Auto) Gran # Lymph # (Auto) [place] # (Auto) Eos # (Auto) Baso # (Auto) Sodium 138 Potassium 4.2 Chloride 103 Carbon Dioxide 26 Anion Gap 13 BUN 20 Creatinine 1.2 Est GFR ( Amer) > 60 Est GFR (Non-Af Amer) > 60 Random Glucose 93 Calcium 9.0 Total Bilirubin 0.9 AST 22 ALT 23 Alkaline Phosphatase 80 Troponin I NT-Pro-B Natriuret Pep Total Protein 7.6 Albumin 3.8 Globulin 3.8 Albumin/Globulin Ratio 1.0 L Urine Color Urine Appearance Urine pH Ur Specific [place] Urine Protein Urine Glucose (UA) Urine Ketones Urine Blood Urine Nitrate Urine Bilirubin Urine Urobilinogen Ur Leukocyte Esterase Urine RBC Urine WBC Ur Epithelial Cells Urine Bacteria Fine Granular Casts Assessment & Plan - Assessment and Plan (Free Text) Assessment: A 37 year old male morbidly obese who came in to the ER due to shortness of breath and leg swelling. He is known to service due to multiple admissions of similar symptoms.He has not followed up with PMD for the last 5 months. He claimed to be depressed. History of non-ischemic cardiomyopathy, CHF, diabetes, hypertension, hyperlipidemia,chronic back pain, nephrolithiasis, and chronic pancreatitis,chronic atrial fibrillation, on Eliquis,pyelonephritis, GERD, history of cystosocpy retrograde extraction and insertion and replacement of pigtail stent. He is diaphoretic. Mild shortness of breath at rest. Bilateral leg edema 4+. Chest X ray showed pulmonary vascular congestion with diffuse bilateral infiltrates right greater than left. BNP elevated 2190. Troponin borderline normal 0.03. BUN/Creatinine normal. Exacerbation of acute on chronic systolic dysfunction congestive heart failure.. Last Echo on 04/25/18 showed dilatation of four chambers consistent with non ischemic cardiomyopathy. LVEF 30-35%. Moderate MR/TR. RVSP 51 mmHg. Will start Primacor drip. Plan: Mild shortness of breath Diaphoretic, leg swelling Will start Primacor Continue to diurese, On Lasix and Aldactone On Eliquis 5 mg BID,Coreg 3.125 mg BID,Lasix 40 mg BID,Aldactone 25m g BID Calan SR 120 mg daily Will change albuterol to Xopenex to prevent rapid heart rate Continue current treatment Continue current medications Smoking cessation Nicoderm patch Lifestyle modification Weight reduction Daily weight Strict intake and output Will follow up Further recommendation during hospital course Plan and treatment discussed with Dr. Thomson Thank you Dr. Santiago for the opportunity of taking care of Gareth Leblanc - Date & Time Date: 10/25/18 Time: 11:15
[2018-10-25] MEDS: Amylase/Lipase/Protease 5,000 Units ECC PO SCH ×2 (11:34→16:55)
[2018-10-25] MEDS: Verapamil 120 mg ER Tab PO SCH (11:35)
[2018-10-25] MEDS: Milrinone 20mg/100ml D5W 100 ML IV SCH ×4 (13:05→21:33)
--- NOTE | 2018-10-25 13:41 | CARD ---
APPROVED REPORT Date of service: 10/24/2018 EKG Measurement Heart [id number] <Conclusion> Atrial fibrillation with rapid ventricular response with premature ventricular or aberrantly conducted complexes Cannot rule out Anteroseptal infarct, age undetermined Abnormal ECG
[2018-10-25] MEDS: Levalbuterol 0.63 MG/3 ML Inhal Soln UD IH SCH ×2 (13:43→20:25)
--- NOTE | 2018-10-25 16:10 | CON ---
DATE: 10/25/2018 REASON FOR CONSULTATION AND FOLLOWUP: Cardiac evaluation, admitted with shortness of breath, possible decompensated congestive heart failure. This note is in addition to dictated by nurse practitioner, Hanny Hyatt. HISTORY OF PRESENT ILLNESS: In brief, this is a 37-year-old morbidly obese male admitted with a couple of days of progressively worsening shortness of breath, history of alcohol abuse in the past, diabetes, hypertension, hyperlipidemia, nonischemic cardiomyopathy, history of nephrolithiasis, supposed to have removal of the stone, but could not be done because the patient did not fit in the OR table. History of chronic atrial fibrillation, on Eliquis, admitted with decompensated congestive heart failure. Last echo dated 04/25/2018 shows four-chamber dilatation, nonischemic cardiomyopathy, ejection fraction 30%-35%, moderate MR, moderate TR, RV systolic pressure 51. History of chronic atrial fibrillation, on Eliquis, history of chronic pancreatitis. RECOMMENDATIONS: We will start aggressive diuresis and we will give Primacor. Continue verapamil to control the heart rate, continue Coreg, continue Lasix as tolerated, continue milrinone and we will follow with you. Repeat the lab in the morning. We will continue spironolactone as well 25 b.i.d. with mag level in the morning, calcium and mag level in the morning as well, and phosphate level. The patient has acute decompensated congestive heart failure acute on chronic secondary to systolic dysfunction. Thank you Dr. Santiago for providing us the opportunity in taking care of the patient, Gareth Leblanc. Shayna Thomson MD
--- NOTE | 2018-10-25 16:38 | CON ---
DATE: 10/25/2018 REASON FOR CONSULTATION: Hypertension, chronic kidney disease stage III, history of bilateral hydronephrosis. HISTORY OF PRESENT ILLNESS: A 37-year-old young male with morbid obesity, hypertension, recurrent pancreatitis, bilateral hydronephrosis, chronic kidney disease stage III, history of acute kidney injury in the past, CHF, cardiomyopathy, was admitted last night with complaints of increased dyspnea on exertion, increased lower extremity edema, back pain, burning in the urine. In the emergency room, he was found to be normotensive, he was found to be tachycardic with a heart rate of 124. His BUN/creatinine were found to be 18/1.1. BNP was elevated at 2190. His urinalysis showed large blood, trace leukocyte esterase, too numerous to count rbc's. Currently, he is sitting in bed. He complains of shortness of breath. He complains of back pain. PAST MEDICAL AND SURGICAL HISTORY: Morbid obesity, hypertension, CHF, cardiomyopathy, hyperlipidemia, bilateral hydronephrosis, nephrolithiasis, chronic pancreatitis, atrial fibrillation on Eliquis. FAMILY HISTORY: Noncontributory. SOCIAL HISTORY: Continues to smoke, denies alcohol use, no IV drug abuse. ALLERGIES: LUZ INHIBITORS. MEDICATIONS AT HOME: Lasix 80 b.i.d., Aldactone 25 b.i.d., digoxin 0.125 daily, Coreg 3.125 b.i.d., Eliquis 5 b.i.d. REVIEW OF SYSTEMS: All systems are reviewed, pertinent positives as mentioned in history of presenting illness, rest unremarkable. PHYSICAL EXAMINATION: GENERAL: Morbidly obese young male sitting in bed. VITAL SIGNS: Blood pressure 140/82, heart rate 102, respiratory rate 20, temperature 97.9. HEENT: Normocephalic, atraumatic, positive pallor. NECK: Supple, no JVD. LUNGS: Bilateral equal entry, bilateral basilar rales, bilateral rhonchi. CARDIAC: S1, S2, regular rate and rhythm, no murmur, no rub. ABDOMEN: Obese, distended, soft, nontender, bowel sounds present. EXTREMITIES: 2+ pitting edema of the lower extremities. CURRENT MEDICATIONS: Aldactone 25 b.i.d., Calan 120, Coreg 3.125 b.i.d., Dilaudid, Eliquis 5 every 12 hours, Lasix 40 IV every 12 hours, amylase, Pepcid, milrinone, Xopenex. ASSESSMENT: 1. Decompensated congestive heart failure/volume overload. 2. History of hypertension. 3. History of dilated cardiomyopathy, atrial fibrillation. 4. Morbid obesity. 5. Sleep apnea. 6. Chronic kidney disease stage II/III. PLAN: 1. Increase Lasix to 80 IV every 12 hours. 2. Strict I's and O's. 3. Check urinalysis and urine culture. 4. Urology evaluation. 5. Continue current antihypertensives. Thank you for the courtesy of this consultation. We will follow this patient with you. Angelica Don MD
--- NOTE | 2018-10-25 18:10 | HP ---
DATE OF EXAM: 10/25/2018 HISTORY OF PRESENT ILLNESS: The patient is 37 years old, came to emergency room reporting increasing shortness of breath going on for the last few days. The patient is very noncompliant since his last discharge from August. He did not follow with anybody, neither leadership program associate nor combat systems operator nor myself. He had never blood work done in between. The patient had been told on multiple occasions that he has multiple sicknesses, he need under close watch with all these consultants. The patient shared he has lot of deaths in the family, he had to go attend them. The patient stated he has been having increasing shortness of breath with no chest pain, little bit dizzy at times decreased appetite and also complain of bilateral leg swelling. PAST MEDICAL HISTORY: Significant for: 1. Nonischemic cardiomyopathy with poor ejection fraction of 25%. 2. Congestive heart failure. 3. Hyperlipidemia. 4. Hypertension. 5. History of nephrolithiasis. 6. left stent placement. 7. Recurrent pancreatitis. 8. History of AFib. 9. History of acute renal failure in the past, but it is resolved. 10. Peptic ulcer disease. PAST SURGICAL HISTORY: Significant for cholecystectomy. MEDICATIONS AT HOME: He is on verapamil 120 mg daily, spironolactone 25 mg twice a day, Pepcid 20 mg daily, Coreg 3.125 mg twice a day, Eliquis 5 mg every 12 hours. He is on Pancrease, he is on metolazone 2.5 mg twice a day, potassium 10 mg twice a day, Lasix 40 mg twice a day, digoxin 0.125 mg daily, allopurinol 300 daily, and nebulizer treatment as needed. SOCIAL HISTORY: He is single. 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 He used to be a heavy smoker and heavy drinker. He still smokes, but quit drinking, drinks only when he is with friends. REVIEW OF SYSTEMS: Increasing leg swelling, increasing shortness of breath. PHYSICAL EXAMINATION VITAL SIGNS: He is afebrile, pulse 114, respirations 19, and blood pressure 140/82. LUNGS: Bilateral fair airflow. No rhonchi or crackles. HEART: S1 and S2 audible. ABDOMEN: Soft, obese, nontender. No rebound. No guarding. NEUROLOGIC: He is awake, alert, oriented, able to communicate. EXTREMITIES: Bilateral leg +2 edema. LABORATORY DATA: WBC 9.4, hemoglobin 12.8, hematocrit 40.2, and platelets 247. Chemistry: Sodium 138, potassium 4.2, chloride 103, CO2 of 26, BUN 20, creatinine 1.2, blood sugar 93. Urine shows large blood, nitrites negative, leukocyte trace, rbc's too numerous to count. X-ray chest, pulmonary vascular congestion, diffuse bilateral interstitial infiltrate, right greater than the left, small bilateral pleural effusion consistent with CHF. ASSESSMENT: 1. Congestive heart failure exacerbation. 2. History of hypertension. 3. Nephrolithiasis. 4. History of pancreatitis. 5. Chronic atrial fibrillation. 6. Morbid obesity. PLAN: We will resume his usual medications. We will monitor his electrolyte. He was evaluated by combat systems operator and has been started on Primacor drip. Follow up his electrolyte in a.m. Sammy Santiago MD
[2018-10-25 23:30] LABS: URINE APPEARANCE CLEAR (CLEAR); URINE BILIRUBIN NEGATIVE (NEGATIVE); URINE BLOOD MODERATE (NEGATIVE); URINE COLOR YELLOW (YELLOW); URINE GLUCOSE (UA) NEGATIVE (NEGATIVE); URINE LEUKOCYTE ESTERASE NEGATIVE Leu/uL (NEGATIVE); URINE PROTEIN NEGATIVE mg/dL (<30 mg/dL); URINE UROBILINOGEN 0.2 E.U./dL (<1 E.U./dL)
[2018-10-25 23:32] LABS: URINE WBC 0 - 2 /hpf (0-6)
[2018-10-26] MEDS: Milrinone 20mg/100ml D5W 100 ML IV SCH ×5 (02:08→21:35)
[2018-10-26] MEDS: HYDROmorphone 1 mg/ml ISec IVP PRN ×6 (02:50→23:42)
[2018-10-26] MEDS: Amylase/Lipase/Protease 5,000 Units ECC PO SCH ×3 (07:54→17:06)
[2018-10-26] MEDS: Levalbuterol 0.63 MG/3 ML Inhal Soln UD IH SCH ×3 (08:04→20:24)
[2018-10-26 09:30] LABS: ALB/GLOB RATIO 0.9 (1.1-1.8); ALT/SGPT 17 U/L (7-56); AST/SGOT 17 U/L (17-59); BLOOD UREA NITROGEN 25 mg/dL (7-21); CALCIUM 9.4 mg/dL (8.4-10.5); GFR NON-AFRICAN AMERICAN 56
[2018-10-26] MEDS: Verapamil 120 mg ER Tab PO SCH (09:59)
--- NOTE | 2018-10-26 12:33 | PN ---
DATE: 10/26/2018 REASON FOR CONSULTATION AND FOLLOWUP: Cardiac evaluation, admitted with shortness of breath and decompensated congestive heart failure. The patient denies any chest pain, shortness of breath, or any palpitation. OBJECTIVE: GENERAL: Not in apparent distress. VITAL SIGNS: Temperature afebrile, heart rate 85, and blood pressure 93/55. HEENT: PERRLA. Extraocular muscles intact. NECK: Supple. No carotid bruit. No thyromegaly. CHEST: Clear to auscultation. HEART: S1 and S2, regular. ABDOMEN: Soft. EXTREMITIES: Clubbing and cyanosis negative. INPUT AND OUTPUT: 2 L, negative fluid balance. MEDICATIONS: Currently, the patient is on IV Lasix and Primacor. IMPRESSION: A 37-yea-old male with history of morbid obesity, body mass index 55 kg/m2 , admitted with decompensated congestive heart failure, history of chronic atrial fibrillation, nonobstructive coronary artery disease, and nonischemic cardiomyopathy. RECOMMENDATIONS: Continue milrinone, continue diuretic, emphasis on weight reduction and lifestyle modification of risk factor. We will follow with you. Thank you Dr. Santiago for providing us with the opportunity in taking care of the patient, Deana Servin. Shayna Thomson MD
--- NOTE | 2018-10-26 16:12 | PN ---
DATE: 10/26/2018 SUBJECTIVE: The patient is 37 years old, seen and examined. He seems to be doing little bit better, less shortness of breath. Bilateral leg swelling still persists, right more than the left. No abdominal pain. No nausea or vomiting. No diarrhea. PHYSICAL EXAMINATION VITAL SIGNS: He is afebrile, pulse 114, respirations 18, and blood pressure 116/59. LUNGS: Bilateral fair airflow, decreased at bases. HEART: S1 and S2 audible. ABDOMEN: Soft, obese, and nontender. No rebound. No guarding. NEUROLOGIC: The patient is awake. alert, oriented, able to communicate, able to move all extremities. LABORATORY DATA: WBC 9.4, hemoglobin 12.8, hematocrit 40, and platelets 247. Chemistry: Sodium 133, potassium 4.1, chloride 101, CO2 of 21, BUN 25, creatinine 1.4, and blood sugar 116. ASSESSMENT AND PLAN: 1. Acute on chronic congestive heart failure with systolic dysfunction, ejection fraction 30-35%. 2. Morbid obesity. 3. Nonischemic cardiomyopathy. 4. History of pancreatitis, history of alcohol abuse in the past. 5. Nephrolithiasis. 6. Peptic ulcer disease. 7. Intermittent atrial fibrillation. 8. History of smoking. Currently, the patient is on Primacor drip. We will continue him on diuretic, monitor his kidney function intermittently, out of bed to chair. Sammy Santiago MD
--- NOTE | 2018-10-26 20:59 | PN ---
DATE: 10/26/2018 SUBJECTIVE: The patient is seen lying in bed. He is awake, he is alert. He reports that he is urinating a lot. His legs are a little bit less swollen. He complains of shortness of breath. PHYSICAL EXAMINATION: GENERAL: Morbidly obese young male, lying in bed. VITAL SIGNS: Blood pressure 125/82, heart rate 110, respiratory rate 20, temperature 97.5. HEENT: Normocephalic, atraumatic, no pallor, no icterus. NECK: Supple, no JVD. LUNGS: Bilateral equal entry, bilateral equal expansion, minimal rales. CARDIAC: S1, S2, regular rate and rhythm, no murmur, no rub. ABDOMEN: Obese, distended, soft, nontender, bowel sounds present. EXTREMITIES: 3+ pitting edema of the lower extremities. INTAKE AND OUTPUT: 2724/4750. LABORATORY DATA: WBC 9.4, hemoglobin 12.8, hematocrit 40, platelets 247. Sodium 133, potassium 4.1, chloride 101, CO2 of 21, BUN 25, creatinine 1.4, glucose 116, calcium 9.4, phosphorus 4.3, magnesium 1.8, albumin 4. Urinalysis, yellow, clear, pH of 6, specific gravity 1.020, moderate blood, 5-10 rbc's. Urine culture, no growth. CURRENT MEDICATIONS: Aldactone 25 mg b.i.d., Calan 120 mg daily, Coreg 3.125 mg b.i.d., Dilaudid, Eliquis 5 mg every 12 hours, Lasix 80 mg IV every 12 hours, Pancrease, Pepcid, Primacor, Xopenex. ASSESSMENT: 1. Decompensated congestive heart failure, cardiomyopathy, edema, volume overload. 2. Stable chronic kidney disease, stage 3. 3. Hematuria, history of recurrent kidney stones, history of hydronephrosis, history of right ureteral stent. 4. Atrial fibrillation. 5. Morbid obesity. 6. History of pancreatitis. PLAN: 1. Continue IV Lasix 80 mg every 12 hours. 2. Continue Primacor. 3. Keep O's greater than I's. 4. Restrict fluids to 1500 mL/day. 5. Neurology evaluation for possible stent change?. Angelica Don MD [facility] # [id number]
[2018-10-27] MEDS: HYDROmorphone 1 mg/ml ISec IVP PRN ×6 (02:09→23:10)
[2018-10-27] MEDS: Milrinone 20mg/100ml D5W 100 ML IV SCH ×5 (02:23→20:55)
--- NOTE | 2018-10-27 07:36 | CP.PCM.PN ---
Subjective - Date & Time of Evaluation Date of Evaluation: 10/27/18 Time of Evaluation: 06:35 - Subjective Subjective: No distress, awake, alert, complaining of abdominal pain Reason for consultation and follow up: Cardiac evaluation of shortness of b reath and leg swelling, History of non-ischemic cardiomyopathy, CHF, diabetes, hypertension, hyperlipidemia, nephrolithiasis, and chronic pancreatitis,chronic atrial fibrillation, on Eliquis. Seen and examined by me and Dr. Thomson Objective - Vital Signs/Intake and Output Vital Signs (last 24 hours): Temp Pulse Resp BP Pulse Ox 97.6 F 103 H 65 H 100/57 L 94 L 10/27/18 00:01 10/27/18 07:13 10/27/18 00:01 10/27/18 00:01 10/27/18 00:01 Intake and Output: 10/27/18 10/27/18 06:59 18:59 Intake Total 660 Output Total 1800 Balance -1140 - Medications Medications: Current Medications Amylase (Pancrease 25493 U-5000 U-88627 U) 15,000 unit PO AC [facility] Last Admin: 10/26/18 17:06 Dose: 15,000 unit Apixaban (Eliquis) 5 mg PO Q12 [facility]; Protocol Last Admin: 10/26/18 21:35 Dose: 5 mg Carvedilol (Coreg) 3.125 mg PO BID [facility] Last Admin: 10/26/18 17:13 Dose: 3.125 mg Famotidine (Pepcid) 20 mg PO DAILY [facility] Last Admin: 10/26/18 10:00 Dose: 20 mg Furosemide (Lasix) 80 mg IVP BID [facility] Last Admin: 10/26/18 17:12 Dose: 80 mg Hydromorphone HCl (Dilaudid) 1 mg IVP Q4H PRN PRN Reason: Pain, severe (8-10) Last Admin: 10/27/18 06:01 Dose: 1 mg Milrinone Lactate/Dextrose (Primacor 20mg/100ml D5w) 100 mls @ 22.453 mls/hr IV .Q4H28M [facility]; Protocol Last Admin: 10/27/18 07:13 Dose: 0.375 mcg/kg/min, 22.453 mls/hr Levalbuterol HCl (Xopenex) 0.63 mg IH TIDRESP [facility] Last Admin: 10/26/18 20:24 Dose: Not Given Nicotine (Nicoderm Cq) 1 patch TD DAILY [facility] Last Admin: 10/26/18 09:57 Dose: 1 patch Spironolactone (Aldactone) 25 mg PO BID [facility] Last Admin: 10/26/18 17:13 Dose: 25 mg Verapamil HCl (Calan Sr Tab) 120 mg PO DAILY [facility] Last Admin: 10/26/18 09:59 Dose: 120 mg - Labs Labs: 10/25/18 06:10 10/26/18 08:45 - Constitutional Appears: Non-toxic, No Acute Distress - Head Exam Head Exam: NORMAL INSPECTION, NORMOCEPHALIC - Eye Exam Eye Exam: Normal appearance Pupil Exam: NORMAL ACCOMODATION - ENT Exam ENT Exam: Mucous Membranes Moist - Respiratory Exam Respiratory Exam: Decreased Breath Sounds, NORMAL BREATHING PATTERN - Cardiovascular Exam Cardiovascular Exam: Tachycardia, +S1, +S2 Additional comments: Telemetry 100-110's - GI/Abdominal Exam GI & Abdominal Exam: Soft, Normal Bowel Sounds - Extremities Exam Additional comments: 4+edema - Neurological Exam Neurological Exam: Alert, Awake, Oriented x3 - Psychiatric Exam Psychiatric exam: Anxious - Skin Skin Exam: Dry, Normal Color, Warm Assessment and Plan - Assessment and Plan (Free Text) Assessment: A 37 year old male morbidly obese who came in to the ER due to shortness of breath and leg swelling. He is known to service due to multiple admissions of similar symptoms.He has not followed up with PMD for the last 5 months. He claimed to be depressed. History of non-ischemic cardiomyopathy, CHF, diabetes, hypertension, hyperlipidemia,chronic back pain, nephrolithiasis, and chronic milligan creatitis,chronic atrial fibrillation, on Eliquis,pyelonephritis, GERD, history of cystosocpy retrograde extraction and insertion and replacement of pigtail stent. diaphoretic. Mild shortness of breath at rest. Bilateral leg edema 4+. Chest X ray showed pulmonary vascular congestion with diffuse bilateral infiltrates right greater than left. BNP elevated 2190. Troponin borderline normal 0.03. BUN/Creatinine normal. Exacerbation of acute on chronic systolic dysfunction congestive heart failure.. Last Echo on 04/25/18 showed dilatation of four chambers consistent with non ischemic cardiomyopathy. LVEF 30-35%. Moderate MR/TR. RVSP 51 mmHg. Started on Primacor drip.On IV Lasix. Plan: No distress, complaining of abdominal pain Morphine given by RN On Primacor drip On Eliquis 5 mg BID,Coreg 3.125 mg BID,Lasix 80 mg BID, Aldactone 25mg BID Calan SR 120 mg daily, Nicoderm patch daily, Heart rate tachycardia- 100-110's Will start digoxin 0.25 mg daily Negative balance of almost 4 liters Will continue to diurese Continue current treatment Continue current medications Fluid restriction to 1500 ml per day. Strict intake and output Will follow up Plan and treatment discussed with Dr. Thomson
[2018-10-27] MEDS: Amylase/Lipase/Protease 5,000 Units ECC PO SCH ×4 (08:10→16:34)
[2018-10-27] MEDS: Levalbuterol 0.63 MG/3 ML Inhal Soln UD IH SCH ×2 (08:19→13:33)
[2018-10-27] MEDS: Verapamil 120 mg ER Tab PO SCH (10:11)
[2018-10-27] MEDS ORDERED: Digoxin 500 mcg/2ml (0.5 mg/2ml) Inj IVP STA (10:57)
[2018-10-27] MEDS: Digoxin 250 mcg (0.25 mg) Tab PO SCH (14:29)
--- NOTE | 2018-10-27 14:48 | PN ---
DATE: 10/27/2018 SUBJECTIVE: The patient is 37 years old, seen and examined, lying in bed. According to nurse, he had large vomiting last night, complained of back pain. No nausea or vomiting. Has no appetite. Shortness of breath is better. Leg swelling seems to be improving slowly. PHYSICAL EXAMINATION: VITAL SIGNS: He is afebrile, pulse 110, respirations 18, blood pressure 125/74. LUNGS: Bilateral diffusely decreased breath sounds. HEART: S1 and S2 audible. ABDOMEN: Obese, soft and nontender. No rebound, no guarding. NEUROLOGIC: The patient is awake, alert, oriented. Able to communicate. LABORATORY DATA: There are no new labs available today. ASSESSMENT: 1. Congestive heart failure exacerbation. 2. History of renal failure, improved. 3. Left nephrolithiasis. 4. History of diverticulosis. 5. History of peptic ulcer disease. 6. History of chronic pancreatitis. 7. Active smoker. 8. Known ischemic cardiomyopathy with ejection fraction 30 to 35%. 9. Morbid obesity. 10. Opioid dependence. I spoke to the patient. It is not safe for him to be on narcotics. He insists he has pain and does not want to switch to p.o. I explained to him the pros and cons, but he wants to stay on his regular pain medications. We will continue the patient on IV diuretics. He will continue on his usual medications. Will follow up this patient on Monday. Sammy Santiago MD
--- NOTE | 2018-10-27 19:03 | PN ---
DATE: 10/27/2018 SUBJECTIVE: The patient is seen lying in bed. He is sleeping. PHYSICAL EXAMINATION GENERAL: Morbidly obese young male, lying in bed. VITAL SIGNS: Blood pressure 129/52, heart rate 121, respiratory rate 19, temperature 98.7. HEENT: Normocephalic, atraumatic, positive pallor. NECK: Supple, no JVD. LUNGS: Bilateral equal air entry, bilateral equal expansion. CARDIAC: S1 and S2, regular rate and rhythm, no murmur, no rub. ABDOMEN: Obese, distended, soft, nontender, bowel sounds present. EXTREMITIES: 2+ pitting edema. INTAKE AND OUTPUT: 1756/5511. LABORATORY DATA: No new labs today. Urine culture, no growth. CURRENT MEDICATIONS: Aldactone 25 b.i.d., Calan 120, Coreg 3.125 b.i.d., Dilaudid, Eliquis, digoxin, Lasix 80 IV every 12 hours, Pancrease, Pepcid, Primacor, Xopenex. ASSESSMENT: 1. Decompensated congestive heart failure, volume overload. 2. Hypertensive heart disease, cardiomyopathy/atrial fibrillation. 3. Morbid obesity. 4. Hypertension. 5. Stable chronic kidney disease stage III. 6. Recurrent kidney stones, hydronephrosis, ureteral stent in place. PLAN: 1. Continue to diurese. 2.. Monitor intake and output closely. 3. Monitor electrolytes. 4. Urology evaluation for stent change? Angelica Don MD
[2018-10-28] MEDS: Milrinone 20mg/100ml D5W 100 ML IV SCH ×6 (01:29→19:45)
[2018-10-28] MEDS: HYDROmorphone 1 mg/ml ISec IVP PRN ×5 (05:01→20:59)
--- NOTE | 2018-10-28 07:27 | CP.PCM.PN ---
Subjective - Date & Time of Evaluation Date of Evaluation: 10/28/18 Time of Evaluation: 06:20 - Subjective Subjective: No distress, awake, alert, complaining of back pain Reason for consultation and follow up: Cardiac evaluation of shortness of breat h and leg swelling, History of non-ischemic cardiomyopathy, CHF, diabetes, hypertension, hyperlipidemia, nephrolithiasis, and chronic pancreatitis,chronic atrial fibrillation, on Eliquis. Seen and examined by me and Dr. Thomson Objective - Vital Signs/Intake and Output Vital Signs (last 24 hours): Temp Pulse Resp BP Pulse Ox 97.7 F 77 19 135/71 95 10/28/18 06:00 10/28/18 06:02 10/28/18 06:00 10/28/18 06:02 10/28/18 06:00 Intake and Output: 10/28/18 10/28/18 06:59 18:59 Intake Total 1890 Output Total 4300 Balance -2410 - Medications Medications: Current Medications Amylase (Pancrease 97581 U-5000 U-88516 U) 15,000 unit PO AC [facility] Last Admin: 10/27/18 16:34 Dose: Not Given Apixaban (Eliquis) 5 mg PO Q12 [facility]; Protocol Last Admin: 10/27/18 21:43 Dose: 5 mg Carvedilol (Coreg) 3.125 mg PO BID [facility] Last Admin: 10/27/18 17:48 Dose: 3.125 mg Digoxin (Lanoxin) 0.25 mg PO 1400 [facility] Last Admin: 10/27/18 14:29 Dose: 0.25 mg Famotidine (Pepcid) 20 mg PO DAILY [facility] Last Admin: 10/27/18 10:11 Dose: 20 mg Furosemide (Lasix) 80 mg IVP BID [facility] Last Admin: 10/27/18 17:48 Dose: 80 mg Hydromorphone HCl (Dilaudid) 1 mg IVP Q4H PRN PRN Reason: Pain, severe (8-10) Last Admin: 10/28/18 05:01 Dose: 1 mg Milrinone Lactate/Dextrose (Primacor 20mg/100ml D5w) 100 mls @ 22.453 mls/hr IV .Q4H28M [facility]; Protocol Last Admin: 10/28/18 06:02 Dose: 0.375 mcg/kg/min, 22.453 mls/hr Levalbuterol HCl (Xopenex) 0.63 mg IH TIDRESP [facility] Last Admin: 10/27/18 13:33 Dose: Not Given Nicotine (Nicoderm Cq) 1 patch TD DAILY [facility] Last Admin: 10/27/18 10:08 Dose: 1 patch Spironolactone (Aldactone) 25 mg PO BID [facility] Last Admin: 10/27/18 17:48 Dose: 25 mg Verapamil HCl (Calan Sr Tab) 120 mg PO DAILY [facility] Last Admin: 10/27/18 10:11 Dose: 120 mg - Labs Labs: 10/25/18 06:10 10/26/18 08:45 - Constitutional Appears: Non-toxic, No Acute Distress - Head Exam Head Exam: NORMAL INSPECTION, NORMOCEPHALIC - Eye Exam Eye Exam: Normal appearance Pupil Exam: NORMAL ACCOMODATION - ENT Exam ENT Exam: Mucous Membranes Moist - Cardiovascular Exam Cardiovascular Exam: Irregular Rhythm, +S1, +S2 Additional comments: Telemetry Aflutter/Afib 70-90's - GI/Abdominal Exam GI & Abdominal Exam: Soft, Normal Bowel Sounds - Extremities Exam Extremities Exam: Full ROM Additional comments: 3+edema less compared to admission - Neurological Exam Neurological Exam: Alert, Awake, Oriented x3 - Psychiatric Exam Psychiatric exam: Anxious - Skin Skin Exam: Dry, Normal Color, Warm Assessment and Plan - Assessment and Plan (Free Text) Assessment: A 37 year old male morbidly obese who came in to the ER due to shortness of breath and leg swelling. He is known to service due to multiple admissions of similar symptoms.He has not followed up with PMD for the last 5 months. He claimed to be depressed. History of non-ischemic cardiomyopathy, CHF, diabetes, hypertension, hyperlipidemia,chronic back pain, nephrolithiasis, and chronic pancreatitis,chronic atrial fibrillation, on Eliquis,pyelonephritis, GERD, history of cystoscopy retrograde extraction and insertion and replacement of pigtail stent. diaphoretic. Mild shortness of breath at rest. Bilateral leg edema 4+. Chest X ray showed pulmonary vascular congestion with diffuse bilateral infiltrates right greater than left. BNP elevated 2190. Troponin borderline normal 0.03. BUN/Creatinine normal. Exacerbation of acute on chronic systolic dysfunction congestive heart failure.. Last Echo on 04/25/18 showed dilatation of four chambers consistent with non ischemic cardiomyopathy. LVEF 30-35%. Moderate MR/TR. RVSP 51 mmHg. Started on Primacor drip. On IV Lasix. Diuresing well, edema on lower extremities less compared to admission. C omplaining of back pain maybe due to renal pigtail stent. Plan: No distress, complaining of back pain claimed to be from pigtail stent Morphine given by RN On Primacor drip On Eliquis 5 mg BID,Coreg 3.125 mg BID,Lasix 80 mg BID, Aldactone 25mg BID Calan SR 120 mg daily, Nicoderm patch daily, Heart rate controlled, started Digoxin 0.25 mg daily Negative balance of almost 2 liters Continue to diurese Dr. Summers on consult Continue current treatment Continue current medications Fluid restriction to 1500 ml per day. Strict intake and output Will follow up Plan and treatment discussed with Dr. Thomson
[2018-10-28] MEDS: Levalbuterol 0.63 MG/3 ML Inhal Soln UD IH SCH ×3 (08:05→19:27)
[2018-10-28] MEDS: Amylase/Lipase/Protease 5,000 Units ECC PO SCH ×3 (08:26→15:41)
[2018-10-28] MEDS: Verapamil 120 mg ER Tab PO SCH (09:03)
[2018-10-28] MEDS: Digoxin 250 mcg (0.25 mg) Tab PO SCH (13:04)
--- NOTE | 2018-10-28 16:35 | PN ---
DATE: 10/28/2018 SUBJECTIVE: The patient has no complaints of any chest pain. No shortness of breath. No headache or dizziness. He continues to have pain that is acute on chronic, he says the pain is about 7-8/10. Pain medications do help. PHYSICAL EXAMINATION VITAL SIGNS: Temperature is 97.7, pulse of 111, blood pressure is 133/90 and respirations 19. GENERAL: The patient is lying in bed, flat, comfortable. HEENT: No oral lesion. Anicteric sclerae. Moist mucosa. NECK: No JVD, adenopathy, or thyromegaly. CARDIOVASCULAR: S1 and S2, regular. No murmurs, rubs, or gallops. LUNGS: Clear to auscultation bilaterally. No wheeze, rales, or rhonchi. ABDOMEN: Bowel sounds are positive, soft, nontender and nondistended. EXTREMITIES: No cyanosis, clubbing or edema. Lower extremity, 2+ edema. LABORATORY DATA: White count of 9.4, hemoglobin 12.8. Creatinine is 1.4. ASSESSMENT: 1. Acute congestive heart failure secondary to systolic dysfunction with an ejection fraction of 30-35%. 2. Endstage renal disease, on hemodialysis. 3. Left-sided nephrolithiasis. 4. Peptic ulcer disease. 5. Chronic pancreatitis. 6. Diverticulosis. 7. Tobacco use. 8. Morbid obesity with a body mass index of 56. 9. Opioid dependence. PLAN: The patient is currently having pain, he is on Dilaudid for pain. His pain medication does help decrease his pain pain levels. He is on carvedilol. He is going to be on verapamil for his hypertension. He is on Lasix for his hypovolemia. He has lower extremity edema. The patient is on nicotine patch, because he is a smoker. He is on Pancrease with amylase, lipase to help with his eating and digestion with absorption. He is on milrinone drip because of his cardiomyopathy and CHF. He is on Xopenex for his breathing. He is on a heart-healthy diet. Singh Gutierrez MD [facility] # [id number]
[2018-10-29] MEDS: Milrinone 20mg/100ml D5W 100 ML IV SCH ×2 (00:01→04:50)
[2018-10-29] MEDS: HYDROmorphone 1 mg/ml ISec IVP PRN ×6 (01:00→21:32)
--- NOTE | 2018-10-29 06:34 | CP.PCM.PN ---
Subjective - Date & Time of Evaluation Date of Evaluation: 10/29/18 Time of Evaluation: 06:20 - Subjective Subjective: No distress, awake, alert, leg edema feels better, severe back pain, no appetite Reason for consultation and follow up: Cardiac evaluation of shortness of breath and leg swelling, History of non-ischemic cardiomyopathy, CHF, diabetes, hypertension, hyperlipidemia, nephrolithiasis, and chronic pancreatitis,chronic atrial fibrillation, on Eliquis. Seen and examined by me and Dr. Thomson Objective - Vital Signs/Intake and Output Vital Signs (last 24 hours): Temp Pulse Resp BP Pulse Ox 97.5 F L 94 H 18 127/72 95 10/29/18 06:00 10/29/18 06:00 10/29/18 06:00 10/29/18 06:00 10/29/18 06:00 Intake and Output: 10/28/18 10/29/18 18:59 06:59 Intake Total 200 1050 Output Total 1600 Balance 200 -550 - Medications Medications: Current Medications Amylase (Pancrease 13188 U-5000 U-96688 U) 15,000 unit PO AC [facility] Last Admin: 10/28/18 15:41 Dose: Not Given Apixaban (Eliquis) 5 mg PO Q12 [facility]; Protocol Last Admin: 10/28/18 21:00 Dose: 5 mg Carvedilol (Coreg) 3.125 mg PO BID [facility] Last Admin: 10/28/18 17:02 Dose: 3.125 mg Digoxin (Lanoxin) 0.25 mg PO 1400 [facility] Last Admin: 10/28/18 13:04 Dose: 0.25 mg Famotidine (Pepcid) 20 mg PO DAILY [facility] Last Admin: 10/28/18 09:04 Dose: 20 mg Furosemide (Lasix) 80 mg IVP BID [facility] Last Admin: 10/28/18 17:02 Dose: 80 mg Hydromorphone HCl (Dilaudid) 1 mg IVP Q4H PRN PRN Reason: Pain, severe (8-10) Last Admin: 10/29/18 05:00 Dose: 1 mg Milrinone Lactate/Dextrose (Primacor 20mg/100ml D5w) 100 mls @ 22.453 mls/hr IV .Q4H28M [facility]; Protocol Stop: 10/29/18 07:00 Last Admin: 10/29/18 04:50 Dose: 0.375 mcg/kg/min, 22.453 mls/hr Levalbuterol HCl (Xopenex) 0.63 mg IH TIDRESP [facility] Last Admin: 10/28/18 19:27 Dose: Not Given Nicotine (Nicoderm Cq) 1 patch TD DAILY [facility] Last Admin: 10/28/18 09:10 Dose: 1 patch Spironolactone (Aldactone) 25 mg PO BID [facility] Last Admin: 10/28/18 17:02 Dose: 25 mg Verapamil HCl (Calan Sr Tab) 120 mg PO DAILY [facility] Last Admin: 10/28/18 09:03 Dose: 120 mg - Labs Labs: 10/25/18 06:10 10/26/18 08:45 - Constitutional Appears: Non-toxic, No Acute Distress - Head Exam Head Exam: NORMAL INSPECTION, NORMOCEPHALIC - Eye Exam Eye Exam: Normal appearance Pupil Exam: NORMAL ACCOMODATION - ENT Exam ENT Exam: Mucous Membranes Moist, Normal Exam - Respiratory Exam Respiratory Exam: Decreased Breath Sounds, Clear to Ausculation Bilateral, NORMAL BREATHING PATTERN - Cardiovascular Exam Cardiovascular Exam: Irregular Rhythm, +S1, +S2 Additional comments: Telemetry atrial fib 80-90's - GI/Abdominal Exam GI & Abdominal Exam: Soft, Normal Bowel Sounds - Extremities Exam Additional comments: 3+edema but better compared to admission - Back Exam Additional comments: back pain - Neurological Exam Neurological Exam: Alert, Awake, Oriented x3 - Psychiatric Exam Psychiatric exam: Normal Affect, Normal Mood - Skin Skin Exam: Dry, Normal Color, Warm Assessment and Plan - Assessment and Plan (Free Text) Assessment: A 37 year old male morbidly obese who came in to the ER due to shortness of breath and leg swelling. He is known to service due to multiple admissions of similar symptoms.He has not followed up with PMD for the last 5 months. He claimed to be depressed. History of non-ischemic cardiomyopathy, CHF, diabetes, hypertension, hyperlipidemia,chronic back pain, nephrolithiasis, and chronic pancreatitis,chronic atrial fibrillation, on Eliquis,pyelonephritis, GERD, hist ory of cystoscopy retrograde extraction and insertion and replacement of pigtail stent. diaphoretic. Mild shortness of breath at rest. Bilateral leg edema 4+. Chest X ray showed pulmonary vascular congestion with diffuse bilateral infiltrates right greater than left. BNP elevated 2190. Troponin bor derline normal 0.03. BUN/Creatinine normal. Exacerbation of acute on chronic systolic dysfunction congestive heart failure.. Last Echo on 04/25/18 showed dilatation of four chambers consistent with non ischemic cardiomyopathy. LVEF 30-35%. Moderate MR/TR. RVSP 51 mmHg. Still on Primacor drip. Will discontinue today. On IV Lasix. Diuresing well, edema on lower extremities less compared to admission. Still complaining of back pain maybe due to renal pigtail stent. Dr. Summers on consult. Plan: No distress, still complaining of back pain, PRN Dilaudid given by RN with relief Awaiting evaluation of Dr. Summers, on consult Heart rate controlled Blood pressure controlled On Primacor drip, discontinue today On Eliquis 5 mg BID,Coreg 3.125 mg BID,Lasix 80 mg BID, Aldactone 25mg BID Calan SR 120 mg daily, Nicoderm patch daily, Digoxin 0.25 mg daily Continue to diurese Continue current treatment Continue current medications Fluid restriction to 1500 ml per day. Strict intake and output On Ensure for dietary supplement Discontinue telemetry Will follow up Plan and treatment discussed with Dr. Thomson
[2018-10-29] MEDS: Amylase/Lipase/Protease 5,000 Units ECC PO SCH ×3 (07:49→16:40)
[2018-10-29 08:13] LABS: BASO # 0.01 K/mm3 (0.0-2.0); BASO % 0.1 % (0.0-3.0); EOS # 0.1 (0.0-0.7); EOS % 0.6 % (1.5-5.0); LYMPH # 1.7 (1.2-3.4); LYMPH % 12.2 % (22.0-35.0); MEAN CELL VOLUME 91.8 fl (80.0-105.0); MEAN CORPUSCULAR HEMOGLOBIN 30.5 pg (25.0-35.0); MEAN CORPUSCULAR HGB CONC 33.3 g/dl (31.0-37.0); MEAN PLATELET VOLUME 9.6 fl (7.0-11.0); MONO # 2.1 (0.1-0.6); MONO % 14.8 % (1.0-6.0); RBC 4.85 10^6/uL (3.5-6.1); RED CELL DISTRIBUTION WIDTH 15.6 % (11.5-14.5)
[2018-10-29 08:16] LABS: HEMOGLOBIN 14.8 g/dL (14.0-18.0)
[2018-10-29 08:29] LABS: ALB/GLOB RATIO 0.9 (1.1-1.8); ALBUMIN 4.3 g/dL (3.0-4.8); ALT/SGPT 17 U/L (7-56); AST/SGOT 21 U/L (17-59); BLOOD UREA NITROGEN 25 mg/dL (7-21); CALCIUM 9.9 mg/dL (8.4-10.5); GFR NON-AFRICAN AMERICAN 56
[2018-10-29] MEDS: Levalbuterol 0.63 MG/3 ML Inhal Soln UD IH SCH ×3 (08:53→20:37)
[2018-10-29] MEDS: Verapamil 120 mg ER Tab PO SCH (09:06)
[2018-10-29] MEDS: Digoxin 250 mcg (0.25 mg) Tab PO SCH (13:01)
--- NOTE | 2018-10-29 14:22 | RAD ---
Date of service: 10/29/2018 PROCEDURE: Left Ankle Radiographs. HISTORY: pain COMPARISON: None available. FINDINGS: BONES: No evidence of acute displaced fracture nor dislocation. JOINTS: Normal. No osteoarthritis. Ankle mortise maintained. Talar dome intact SOFT TISSUES: Moderate to fairly significant diffuse infiltration -edema and/or soft tissue swelling overlying the medial and lateral malleoli extending proximally into the soft tissues of the distal 1/3 of the tibia/fibula. Findings may represent post traumatic edema however cellulitis or underlying vascular etiology not excluded. Clinical correlation recommended. OTHER FINDINGS: None. IMPRESSION: No evidence of acute displaced fracture nor dislocation. Moderate to fairly significant diffuse infiltration -edema and/or soft tissue swelling overlying the medial and lateral malleoli extending proximally into the soft tissues of the distal 1/3 of the tibia/fibula. Findings may represent post traumatic edema however cellulitis or underlying vascular etiology not excluded. Clinical correlation recommended.
--- NOTE | 2018-10-29 17:08 | PN ---
DATE: 10/29/2018 SUBJECTIVE: The patient is 37 years old, seen and examined, complained of left ankle pain and states it hurts to walk, still has right ankle swelling. The patient was also evaluated by Dr. Summers and plan is to change the stent tomorrow. At this point, patient's cardiac status has been maximized, so it is advisable to have it done tomorrow, since the patient gets intermittent attack of CHF exacerbation. PHYSICAL EXAMINATION: GENERAL: He is awake, alert, oriented, and communicative. VITAL SIGNS: He is afebrile, pulse 94, respirations 18, and blood pressure 135/90. LUNGS: Bilateral fair airflow, decreased at bases. HEART: S1 and S2 audible. ABDOMEN: Soft, nontender, obese. No hepatosplenomegaly. NEUROLOGIC: He is awake, alert, and oriented. Able to communicate. EXTREMITIES: Bilateral legs +2 edema. He has medial malleolus swelling. LABORATORY DATA: WBC 14, hemoglobin 14, hematocrit 44, and platelets 318. Chemistry: Sodium 135, potassium 4.2, chloride 96, CO2 of 31, BUN 25, creatinine 1.4, and blood sugar of 104. Urine cultures are negative. ASSESSMENT: 1. Status post congestive heart failure exacerbation. He was on Primacor drip, has been discontinued. We will continue IV diuretics. 2. Nonischemic cardiomyopathy. 3. Morbid obesity. 4. Left ankle pain. 5. Recurrent pancreatitis, he has been stable. 6. Paroxysmal atrial fibrillation. 7. Active smoker. PLAN: Currently, the patient is on spironolactone. We will continue verapamil, carvedilol, analgesic as needed, Eliquis, digoxin, Lasix. I will order for left ankle x-ray and request physical therapy evaluation and plan for discharge after he had stent replaced tomorrow. Sammy Santiago MD
[2018-10-29 19:15] LABS: URINE BILIRUBIN NEGATIVE (NEGATIVE); URINE BLOOD MODERATE (NEGATIVE); URINE GLUCOSE (UA) NEGATIVE (NEGATIVE); URINE LEUKOCYTE ESTERASE NEGATIVE Leu/uL (NEGATIVE); URINE PROTEIN NEGATIVE mg/dL (<30 mg/dL); URINE UROBILINOGEN 0.2 E.U./dL (<1 E.U./dL)
[2018-10-29 19:21] LABS: URINE APPEARANCE CLEAR (CLEAR); URINE COLOR YELLOW (YELLOW)
[2018-10-29 19:23] LABS: URINE RBC 15 - 20 /hpf (0-2)
--- NOTE | 2018-10-29 19:50 | PN ---
DATE: 10/29/2018 SUBJECTIVE: The patient is seen lying in bed. He is sleeping. He has a prolonged expiration. PHYSICAL EXAMINATION GENERAL: Obese, middle-aged male, lying in bed. VITAL SIGNS: Blood pressure 129/82, heart rate 88, respiratory rate 19, temperature 98.1. HEENT: Normocephalic, atraumatic, positive pallor. NECK: Supple, no JVD. LUNGS: Bilateral rhonchi, bilateral equal expansion. CARDIAC: S1 and S2, irregularly irregular, no murmur, no rub. ABDOMEN: Obese, distended, soft, nontender, bowel sounds present. EXTREMITIES: 2+ pitting edema of the lower extremities. INTAKE AND OUTPUT: 1250/1600? LABORATORY DATA: WBC 14, hemoglobin 14.8, hematocrit 45, platelets 318, polys 72%. Sodium 135, potassium 4.2, chloride 96, CO2 of 31, BUN 25, creatinine 1.4, glucose 104, calcium 9.9, phosphorus 4.1, magnesium 2, albumin 4.3. CURRENT MEDICATIONS: Aldactone 25 b.i.d., Calan SR 120 daily, Coreg 3.125 b.i.d., Dilaudid, Eliquis 5 every 12 hours, Lanoxin, Lasix 80 IV every 12 hours, Pancrease, Pepcid, Xopenex. ASSESSMENT AND PLAN: 1. Decompensated congestive heart failure, volume overload. 2. Chronic kidney disease, stage III. 3. Hypertension. 4. Morbid obesity. 5. History of recurrent kidney stones, hydronephrosis, ureteral stents in place. PLAN: 1. Continue to diurese. 2. Keep O's greater than I's. 3. Daily weight. 4. The patient is now off milrinone. 5. Renal parameters are stable. 6. In light of elevated wbc's, repeat urinalysis. Angelica Don MD
--- NOTE | 2018-10-29 19:51 | CON ---
DATE: 10/29/2018 UROLOGY CONSULTATION REASON FOR CONSULTATION: Stent pain. HISTORY OF PRESENT ILLNESS: This is a very pleasant gentleman with multiple medical issues who had been in the hospital for various complaints; however, it is time he needs to have to change the stent. I have spoken to the patient several times. He is very pleasant not to be compliant and does not really attend the office. There are lot of reasons for this. At this point, he has been in the hospital. I will repeat the consultation on the patient and see the plan, we will try to change the stent as quickly as possible. today. See below. PAST MEDICAL AND SURGICAL HISTORY: As listed on the chart; otherwise unremarkable from the Urology standpoint. REVIEW OF SYSTEMS: As listed above, noncontributory. positive, but not relevant to Urology nicole. PHYSICAL EXAMINATION: GENERAL: His body habitus is noted. He currently is sitting up . VITAL SIGNS: Noted. DIAGNOSES: Urolithiasis, hematuria, stent pain. PLAN: The plan is as follows: I need to review the CT scan, but I am going to make arrangements either way to take the stent in and out. To my recollection last time, we did not see as much stone as we expected. We reviewed some of those records and I think in fact we are moving down on the ideas of treatment. The original report was that the patient had a gigantic stone that needed percutaneous treatment. I also discussed with him whether or not this is going to be treated or not. Because I explained to the patient at sometime depending on his overall general health status. The plan is as follows: 1. Maintain current medical plan. 2. May need to change his stent tomorrow. Today is 10/29/2018, we will try to make arrangements on 10/30/2018. Juan Ramon Summers MD
[2018-10-30] MEDS: HYDROmorphone 1 mg/ml ISec IVP PRN ×6 (01:36→22:48)
--- NOTE | 2018-10-30 07:05 | CP.PCM.PN ---
Subjective - Date & Time of Evaluation Date of Evaluation: 10/30/18 Time of Evaluation: 06:25 - Subjective Subjective: No distress, awake, alert Reason for consultation and follow up: Cardiac evaluation of shortness of breath and leg swelling, History of non-ischemic cardiomyopathy, CHF, diabetes, hypertension, hyperlipidemia, nephrolithiasis, and chronic pancreatitis,chronic atrial fibrillation, on Eliquis. Exacerbation of congestive heart failure, Primacor drip Seen and examined by me and Dr. Thomson Objective - Vital Signs/Intake and Output Vital Signs (last 24 hours): Temp Pulse Resp BP Pulse Ox 97.5 F L 66 20 121/62 98 10/30/18 05:53 10/30/18 05:53 10/30/18 05:53 10/30/18 05:53 10/30/18 05:53 Intake and Output: 10/30/18 10/30/18 06:59 18:59 Intake Total 720 Output Total 1350 Balance -630 - Medications Medications: Current Medications Amylase (Pancrease 93133 U-5000 U-18111 U) 15,000 unit PO AC [facility] Last Admin: 10/29/18 16:40 Dose: Not Given Apixaban (Eliquis) 5 mg PO Q12 [facility]; Protocol Last Admin: 10/29/18 21:32 Dose: 5 mg Carvedilol (Coreg) 3.125 mg PO BID [facility] Last Admin: 10/29/18 17:04 Dose: 3.125 mg Digoxin (Lanoxin) 0.25 mg PO 1400 [facility] Last Admin: 10/29/18 13:01 Dose: 0.25 mg Famotidine (Pepcid) 20 mg PO DAILY [facility] Last Admin: 10/29/18 09:05 Dose: 20 mg Furosemide (Lasix) 80 mg IVP BID [facility] Last Admin: 10/29/18 17:04 Dose: 80 mg Hydromorphone HCl (Dilaudid) 1 mg IVP Q4H PRN PRN Reason: Pain, severe (8-10) Last Admin: 10/30/18 05:38 Dose: 1 mg Levalbuterol HCl (Xopenex) 0.63 mg IH TIDRESP [facility] Last Admin: 10/29/18 20:37 Dose: Not Given Nicotine (Nicoderm Cq) 1 patch TD DAILY [facility] Last Admin: 10/29/18 09:06 Dose: 1 patch Spironolactone (Aldactone) 25 mg PO BID [facility] Last Admin: 10/29/18 17:04 Dose: 25 mg Verapamil HCl (Calan Sr Tab) 120 mg PO DAILY [facility] Last Admin: 10/29/18 09:06 Dose: 120 mg - Labs Labs: 10/29/18 08:00 10/29/18 08:00 - Constitutional Appears: Non-toxic, No Acute Distress - Head Exam Head Exam: NORMAL INSPECTION, NORMOCEPHALIC - Eye Exam Eye Exam: Normal appearance Pupil Exam: NORMAL ACCOMODATION - ENT Exam ENT Exam: Mucous Membranes Moist, Normal Exam - Respiratory Exam Respiratory Exam: Decreased Breath Sounds, NORMAL BREATHING PATTERN - Cardiovascular Exam Cardiovascular Exam: +S1, +S2 - GI/Abdominal Exam GI & Abdominal Exam: Soft, Normal Bowel Sounds - Extremities Exam Additional comments: 3+edema - Neurological Exam Neurological Exam: Alert, Awake, Oriented x3 - Psychiatric Exam Psychiatric exam: Normal Affect, Normal Mood - Skin Skin Exam: Dry, Normal Color, Warm Assessment and Plan - Assessment and Plan (Free Text) Assessment: A 37 year old male morbidly obese who came in to the ER due to shortness of breath and leg swelling. He is known to service due to multiple admissions of similar symptoms.He has not followed up with PMD for the last 5 months. He claimed to be depressed. History of non-ischemic cardiomyopathy, CHF, diabetes, hypertension, hyperlipidemia,chronic back pain, nephrolithiasis, and chronic pancreatitis,chronic atrial fibrillation, on Eliquis,pyelonephritis, GERD, history of cystoscopy retrograde extraction and insertion and replacement of pigtail stent. diaphoretic. Mild shortness of breath at rest. Bilateral leg edema 4+. Chest X ray showed pulmonary vascular congestion with diffuse bilateral infiltrates right greater than left. BNP elevated 2190. Troponin borderline normal 0.03. BUN/Creatinine normal. Exacerbation of acute on chronic systolic dysfunction congestive heart failure.. Last Echo on 04/25/18 showed dilatation of four chambers consistent with non ischemic cardiomyopathy. LVEF 30-35%. Moderate MR/TR. RVSP 51 mmHg. Primacor drip completed. On IV Lasix. Diuresing well, edema on lower extremities less compared to admission. Complaining of back pain maybe due to renal pigtail stent. Evaluated by Dr. Summers .Possible renal stent replacement today. Cleared from cardiac standpoint to undergo procedure with moderate risk considering co-morbidities. Plan: Possible stent replacement today by Dr. Summers Cleared from cardiac standpoint to undergo procedure with moderate risk No distress,feels okay, shortness of breath on exertion Heart rate controlled Blood pressure controlled Primacor drip discontinue yesterday On Eliquis 5 mg BID,Coreg 3.125 mg BID,Lasix 80 mg BID, Aldactone 25mg BID Calan SR 120 mg daily, Nicoderm patch daily, Digoxin 0.25 mg daily Continue to diurese Continue current treatment Continue current medications Fluid restriction to 1500 ml per day. Strict intake and output On Ensure for dietary supplement Will follow up Plan and treatment discussed with Dr. Thomson
[2018-10-30] MEDS: Levalbuterol 0.63 MG/3 ML Inhal Soln UD IH SCH ×3 (07:33→20:30)
[2018-10-30] MEDS: Amylase/Lipase/Protease 5,000 Units ECC PO SCH ×3 (09:21→18:52)
[2018-10-30] MEDS ORDERED: MethylPREDNISolone 40 mg Vial IVP STA (10:05)
[2018-10-30] MEDS: Verapamil 120 mg ER Tab PO SCH (10:13)
[2018-10-30] MEDS: MethylPREDNISolone 40 mg Vial IVP SCH ×2 (12:57→22:44)
[2018-10-30] MEDS: Digoxin 250 mcg (0.25 mg) Tab PO SCH (13:40)
[2018-10-30] MEDS ORDERED: Iohexol 240 (50 ml) ONE (16:55)
[2018-10-30] MEDS ORDERED: cefTRIAXone (Rocephin) 1 gm Inj ONE ×2 (17:05→17:23)
--- NOTE | 2018-10-30 18:04 | PCM.URO ---
Urology Progress Note - Objective Lab Studies: Reviewed (unfortunately pt is too great a risk for surgery at this time i spoke with anethesia at length. i spoke with pt at length . he is understandably disappointed and even though he has had similar procedures before , he is at too high risk . Wt is greater than 400 pounds, chf, was on multiple cardiac meds , and if there is any complication at this hour could be life threatening. last stent change was 08/13. i offered removal instead of change he says he has tried that i offered another urologist to change it , he wants me. so we will rescheduel. full note dictated) Lab Results Last 24 Hours: Laboratory Results - last 24 hr 10/29/18 19:03 Urine Color Yellow Urine Appearance Clear Urine pH 7.0 Ur Specific Malcom 1.010 Urine Protein Negative Urine Glucose (UA) Negative Urine Ketones Negative Urine Blood Moderate H Urine Nitrate Negative Urine Bilirubin Negative Urine Urobilinogen 0.2 Ur Leukocyte Esterase Negative Urine RBC 15 - 20 H Urine WBC 1 - 3 Ur Epithelial Cells 3 - 4 Intake & Output: Intake & Output 10/29/18 10/30/18 10/30/18 18:59 06:59 18:59 Intake Total 660 720 Output Total 1850 1350 Balance -1190 -630 Weight 432 lb 428 lb 3.2 oz Intake: Oral 660 720 Output: Urine 1850 1350 Urine, Voided 1850 1350 Other: # Voids Urine, Voided 4 # Bowel Movements 0 0 Vital Signs: Vital Signs - 24 hr 10/29/18 10/29/18 10/30/18 18:00 23:34 05:53 Temperature 98.8 F 97.8 F 97.5 F L Pulse Rate 83 89 66 Respiratory 20 22 20 Rate Blood Pressure 132/96 H 117/71 121/62 O2 Sat by Pulse 97 98 Oximetry 10/30/18 10/30/18 10/30/18 10:13 10:14 12:00 Temperature 98 F Pulse Rate 66 47 L Respiratory 20 Rate Blood Pressure 121/62 121/62 112/69 O2 Sat by Pulse Oximetry 10/30/18 15:13 Temperature 97.7 F Pulse Rate 81 Respiratory 20 Rate Blood Pressure 112/60 O2 Sat by Pulse 94 L Oximetry
--- NOTE | 2018-10-30 18:17 | PN ---
DATE: 10/30/2018 SUBJECTIVE: The patient is currently seen sitting up in bed on telemetry. He states that he is being transferred to Med-Surg later today. He has lost a total of 25 pounds over the last 4 days. He remains on diuretic therapy. His decompensated CHF is clinically improved. His volume overload state is significantly improved. He states that he is awaiting a change of his left ureteral stent. MEDICATIONS Medication list reviewed. The patient is on Aldactone, Calan, colchicine, Coreg, Dilaudid, Eliquis, Lanoxin, Lasix, NicoDerm CQ, pancreatic enzymes, Pepcid, Solu-Medrol and Xopenex. OBJECTIVE: INTAKE/OUTPUT: Intake is 1380, output is 3200. Weight is down to 428 pounds and 3 ounces. VITAL SIGNS: Blood pressure 112/69, pulse 66, temperature 98, respiratory rate 20. Oxygen saturation is 98%. HEENT: Shows him to be normocephalic, atraumatic. Conjunctivae pink. Sclerae nonicteric. NECK: Supple. No neck vein distention. CHEST: Clear to auscultation and percussion with no rales, rhonchi or wheezing. CARDIOVASCULAR: Shows an irregular S1, S2. No S3. No S4. Positive MR/TR. No rub. ABDOMEN: Obese. No tenderness on palpation. No rebound, guarding or masses. EXTREMITIES: Show no significant lower extremity cyanosis, clubbing or edema. LABORATORY DATA AND IMAGING: CBC, white blood cell count up to 14.0, likely from steroids. Hemoglobin 14.8 with a platelet count of 318,000. Chemistry showed normal electrolytes. BUN slightly higher at 25, likely from steroids. Creatinine stable at 1.4, up from 1.1. Calcium, phosphorus, magnesium level are all normal. Albumin level is stable at 4.3. Urine showed red blood cells with occasional white blood cells. Urine cultures were negative x2. ASSESSMENT: 1. Decompensated CHF, volume overload, atrial fibrillation. Ejection fraction had been 33% back in 2018. The patient remains on diuretic therapy. We will need to monitor accurate intake and output and daily weights. Cautioned not to over diurese the patient. For any significant rise in BUN, diuretic therapy should be reduced. 2. Chronic kidney disease stage II/III. Baseline creatinine in the mid 1 range. 3. Hypertension. Blood pressure controlled on present medical therapy. 4. History of left hydronephrosis, status post ureteral stent exchanges in the past. The patient states he is due for another stent exchange. 5. Chronic anticoagulation secondary to atrial fibrillation. The patient remains on verapamil and Coreg for heart rate control. 6. History of severe morbid obesity. The patient's weight appears to be improved down to 428 pounds with diuretic therapy. PLAN: 1. Continue to monitor labs on a daily basis. 2. Continue accurate intake and output and daily weights. 3. Followup left ankle pain. The patient thinks that he might have an acute gout attack. We will check a uric acid level. Sean Reich MD
[2018-10-31] MEDS: HYDROmorphone 1 mg/ml ISec IVP PRN ×6 (03:04→22:39)
[2018-10-31] MEDS: Levalbuterol 0.63 MG/3 ML Inhal Soln UD IH SCH ×3 (07:35→20:00)
[2018-10-31 07:37] LABS: HEMOGLOBIN 15.9 g/dL (14.0-18.0); MEAN CELL VOLUME 91.5 fl (80.0-105.0); MEAN CORPUSCULAR HEMOGLOBIN 30.8 pg (25.0-35.0); MEAN CORPUSCULAR HGB CONC 33.7 g/dl (31.0-37.0); MEAN PLATELET VOLUME 9.8 fl (7.0-11.0); RBC 5.16 10^6/uL (3.5-6.1); RED CELL DISTRIBUTION WIDTH 15.3 % (11.5-14.5); WHITE BLOOD COUNT 11.5 10^3/uL (4.5-11.0)
[2018-10-31 08:05] LABS: ALB/GLOB RATIO 0.9 (1.1-1.8); ALBUMIN 4.3 g/dL (3.0-4.8); ALT/SGPT 15 U/L (7-56); AST/SGOT 19 U/L (17-59); BLOOD UREA NITROGEN 41 mg/dL (7-21); CALCIUM 9.8 mg/dL (8.4-10.5); GFR NON-AFRICAN AMERICAN 52; URIC ACID 16.9 mg/dL (3.5-8.5)
--- NOTE | 2018-10-31 08:06 | PN ---
DATE: 10/30/2018 SUBJECTIVE: The patient is 37 years old, complaining of left ankle pain. He stated he cannot standup on this, complained of pain. according to therapy, he was not able to put weight on his left ankle. He is also n.p.o., to go for ureteric stent replacement. PHYSICAL EXAMINATION: GENERAL: He is awake, alert, oriented and communicative. VITAL SIGNS: He is afebrile. Pulse 66, respiration 20 and blood pressure 121/62. LUNGS: Bilateral fair airflow. No rhonchi or crackle. HEART: S1 and S2, audible. ABDOMEN: Soft, obese, nontender. No rebound. No guarding. NEUROLOGIC The patient is awake, alert, oriented, able to communicate. Moves all extremities. Has palpable discomfort in the left medial malleolar, some warmth to touch. LABORATORY DATA: WBC 14, hemoglobin 14, hematocrit 44, platelets 318. Chemistry: Sodium 135, potassium 4.2, chloride 96, CO2 of 31, BUN 25, creatinine 1.4, blood sugar 104. LFTs are within normal limits. ASSESSMENT: 1. Probably gouty arthritis. 2. Chronic left hydronephrosis. 3. Nephrolithiasis. 4. Nonischemic cardiomyopathy. 5. Morbid obesity. 6. History of recurrent pancreatitis. 7. Status post cholecystectomy. PLAN: I will give him a dose of Solu-Medrol 40 mg one dose stat and we will give him a dose of colchicine daily. The patient is going for ureteric stent replacement. We will follow up closely and we will follow up in a.m. Sammy Santiago MD
[2018-10-31] MEDS: Amylase/Lipase/Protease 5,000 Units ECC PO SCH ×3 (10:32→16:34)
[2018-10-31] MEDS: Verapamil 120 mg ER Tab PO SCH (10:35)
[2018-10-31] MEDS: MethylPREDNISolone 40 mg Vial IVP SCH ×2 (10:37→22:43)
[2018-10-31] MEDS: Digoxin 250 mcg (0.25 mg) Tab PO SCH (14:03)
--- NOTE | 2018-10-31 15:32 | PN ---
DATE: 10/31/2018 SUBJECTIVE: The patient is 37 years old, seen and examined, went for stent replacement; but because of tachycardia, his procedure was postponed. The patient is complaining of excruciating pain in his left ankle, unable to walk. Responded to Solu-Medrol and colchicine, seems to be doing 30% better. PHYSICAL EXAMINATION: VITAL SIGNS: He is afebrile, pulse 66, respiration 18, and blood pressure 101/64. LUNGS: Bilateral fair airflow. No rhonchi or crackle. HEART: S1 and S2 audible. ABDOMEN: Soft and nontender. No rebound. No guarding. NEUROLOGIC: The patient is awake, alert, oriented, and able to communicate. Left ankle swelling has significantly improved. LABORATORY DATA: WBC 11.5, hemoglobin 15.9, hematocrit 47.2, and platelets 379. Chemistry; sodium 136, potassium 4.2, chloride 96, CO2 of 29, BUN 41, creatinine 1.5, blood sugar 123, and uric acid is 16.9. ASSESSMENT: 1. Left ankle gouty arthritis. 2. Nonischemic cardiomyopathy. 3. Hypertension. 4. Hyperlipidemia. 5. Recurrent pancreatitis. 6. Intermittent atrial fibrillation. PLAN: I will continue on colchicine. Continue Solu-Medrol. His stent replacement has been postponed because of his multiple comorbidities and cardiac status. We will reevaluate in a.m. If the patient is able to ambulate and pain improves, we will discharge in a.m. Sammy Santiago MD
--- NOTE | 2018-10-31 16:18 | PN ---
DATE: 10/31/2018 SUBJECTIVE: The patient is seen lying in bed, sedated. He is awake, he is alert. He reports that his edema is all gone, but he complains of pain in his left ankle. He is unable to weight bear. PHYSICAL EXAMINATION: GENERAL: Morbidly obese young male sitting in bed. VITAL SIGNS: Blood pressure 101/64, heart rate 88, respiratory rate 18-20 and temperature 97.9. HEENT: Normocephalic, atraumatic, positive pallor. NECK: Supple, no JVD. LUNGS: Bilateral equal entry, bilaterally equal expansion, no rales. CARDIAC: S1 and S2, regular rate and rhythm, no murmur, no rub. ABDOMEN: Obese, distended, soft, nontender and bowel sounds present. EXTREMITIES: No lower extremity edema, some tenderness over the left ankle. INTAKE AND OUTPUT: 900/600. LABORATORY DATA: WBC 11.5, hemoglobin 15.9, hematocrit 47 and platelets 379. Sodium 136, potassium 4.2, chloride 96, CO2 of 28, BUN 41, creatinine 1.5, glucose 123, calcium 9.8, AST 19, ALT 15, albumin 0.3 and globulin 4.9. Uric acid 16.9. CURRENT MEDICATIONS: Aldactone 25 b.i.d., Calan 120, colchicine 0.6 b.i.d. started last night, Coreg 3.125 b.i.d., Dilaudid every 4 hours, Eliquis 5 every 12 hours, digoxin 0.25, Lasix 80 IV every 12 hours, Pancrease, Pepcid, Solu-Medrol 40 every 12 hours, Xopenex and allopurinol 100. ASSESSMENT: 1. Severe decompensated congestive heart failure, now much improved. 2. Morbid obesity. 3. Stable chronic kidney disease stage III. 4. Congestive heart failure/cardiomyopathy/atrial fibrillation. 5. Acute gallop? 6. History of kidney stones/hydronephrosis, left ureteral stent. PLAN: 1. Change Lasix to 80 p.o. b.i.d. 2. Continue colchicine. 3. Will need higher dose of allopurinol. 4. Stent was not changed by Urology yesterday. Plan is to do it as outpatient in 2 weeks? Angelica Don MD [facility] # [id number]
--- NOTE | 2018-10-31 16:26 | PN ---
DATE: 10/31/2018 LOCATION: Room 570, bed 1. REASON FOR CONSULTATION: Followup of CHF, decompensated congestive heart failure, nonischemic cardiomyopathy, obesity. SUBJECTIVE: The patient's shortness of breath is better. He still pulls on nasal O2. Denies chest pain or palpitation. PHYSICAL EXAMINATION: VITAL SIGNS: Blood pressure 101/64, respirations 18, pulse 88, and temperature 97.9. HEENT: Head: Normocephalic. Eyes: Pupils normal, conjunctivae normal. Nose and throat: Normal. NECK: JVP low. Carotid equal. THORAX: AP diameter is normal. LUNGS: No significant rales. CARDIOVASCULAR: S1 and S2. ABDOMEN: Protuberant. No organomegaly. EXTREMITIES: No clubbing. No cyanosis. Edema of the leg has also improved. LABORATORY DATA: WBC 11.5, hemoglobin 15.9, hematocrit 47.2, platelets 379. Sodium 136, potassium 4.2, BUN 41, creatinine 1.5, random glucose 123, uric acid is 16.9. AST and ALT are normal. Total protein is 9.2. Albumin is 4.3. TSH 0.76, which is normal. DIAGNOSES: Morbid obesity, body mass index 55 kg/m2, admitted with decompensated congestive heart failure, chronic atrial fibrillation, nonischemic cardiomyopathy, nonobstructive coronary artery disease, and renal dysfunction. PLAN: Continue spironolactone 25 b.i.d., verapamil 120 mg p.o. daily, colchicine 0.6 b.i.d., carvedilol 3.125 b.i.d., Eliquis 5 mg every 12 hours, digoxin 0.25 daily. The patient is on furosemide 80 IV b.i.d, Pepcid 20 mg daily, methylprednisolone 40 mg IV every 12 hours, Xopenex and nebulizer therapy. Advised the patient again to lose weight. We will continue to follow with you. Shayna Jay MD
--- NOTE | 2018-10-31 22:47 | PCM.URO ---
Urology Progress Note - General General: No Complaints, Tolerating Diet - Subjective Abdominal Pain: Yes (OCC LOWER ABD DISCOMFORT ) Flank Pain: No Nausea: No Vomiting: No Voiding Well: Yes Dysuria: Yes (OCC) Hematuria: No Urinary Urgency: No Frequency: No Good Stream: No (FAIR STREAM) Fever & Chills: No - Objective Lab Results Last 24 Hours: Laboratory Results - last 24 hr 10/31/18 10/31/18 07:20 07:20 WBC 11.5 H RBC 5.16 Hgb 15.9 Hct 47.2 MCV 91.5 MCH 30.8 MCHC 33.7 RDW 15.3 H Plt Count 379 MPV 9.8 Sodium 136 Potassium 4.2 Chloride 96 L Carbon Dioxide 28 Anion Gap 16 BUN 41 H Creatinine 1.5 Est GFR ( Amer) > 60 Est GFR (Non-Af Amer) 52 Random Glucose 123 H Uric Acid 16.9 H Calcium 9.8 Total Bilirubin 0.7 AST 19 ALT 15 Alkaline Phosphatase 94 Total Protein 9.2 H Albumin 4.3 Globulin 4.9 Albumin/Globulin Ratio 0.9 L Intake & Output: Intake & Output 10/31/18 10/31/18 11/01/18 06:59 18:59 06:59 Intake Total 900 1680 Output Total 600 1000 Balance 300 680 Weight 421 lb 9.6 oz Intake: Oral 900 1680 Output: Urine 600 1000 Urine, Voided 600 1000 Other: # Bowel Movements 0 0 Vital Signs: Vital Signs - 24 hr 10/31/18 10/31/18 10/31/18 06:00 10:33 10:35 Temperature 97.9 F Pulse Rate 66 88 88 Respiratory 18 Rate Blood Pressure 122/75 101/64 101/64 O2 Sat by Pulse 96 Oximetry 10/31/18 10/31/18 10/31/18 10:36 18:18 18:19 Temperature Pulse Rate 75 Respiratory Rate Blood Pressure 101/64 135/79 135/79 O2 Sat by Pulse Oximetry 10/31/18 22:00 Temperature 97.8 F Pulse Rate 63 Respiratory 20 Rate Blood Pressure 132/78 O2 Sat by Pulse 98 Oximetry - Physical Exam Abdominal Exam: Soft, Non-Tender, Non-Distended Back: No CVA Tenderness Genitalia: Without Inflammation - Plan Ambulation - Out of Bed: Yes Intake & Output: Yes Additional Information: IMP: urologically stable. ureteral stent in place. Poss urolithiasis. CHF. Obesity. Cysto was cancelled yesterday by Anesthesiologist. - Date & Time of Note Date: 10/31/18 Time: 15:10
[2018-11-01] MEDS: HYDROmorphone 1 mg/ml ISec IVP PRN ×3 (02:41→10:32)
[2018-11-01 07:33] LABS: HEMOGLOBIN 15.2 g/dL (14.0-18.0); MEAN CELL VOLUME 92.1 fl (80.0-105.0); MEAN CORPUSCULAR HEMOGLOBIN 30.2 pg (25.0-35.0); MEAN CORPUSCULAR HGB CONC 32.8 g/dl (31.0-37.0); MEAN PLATELET VOLUME 10.2 fl (7.0-11.0); RBC 5.04 10^6/uL (3.5-6.1); RED CELL DISTRIBUTION WIDTH 15.4 % (11.5-14.5); WHITE BLOOD COUNT 13.1 10^3/uL (4.5-11.0)
[2018-11-01 07:54] LABS: ALB/GLOB RATIO 0.9 (1.1-1.8); ALBUMIN 4.3 g/dL (3.0-4.8); ALT/SGPT 14 U/L (7-56); AST/SGOT 19 U/L (17-59); BLOOD UREA NITROGEN 58 mg/dL (7-21); CALCIUM 9.5 mg/dL (8.4-10.5); GFR NON-AFRICAN AMERICAN 52
[2018-11-01] MEDS: Levalbuterol 0.63 MG/3 ML Inhal Soln UD IH SCH ×3 (07:57→19:53)
--- NOTE | 2018-11-01 08:15 | CP.PCM.PN ---
Subjective - Date & Time of Evaluation Date of Evaluation: 11/01/18 Time of Evaluation: 06:35 - Subjective Subjective: No distress, awake, alert, denies shortness of breath, complaining of left foot pain Reason for consultation and follow up: Cardiac evaluation of shortness of breath and leg swelling, History of non-ischemic cardiomyopathy, CHF, diabetes, hypertension, hyperlipidemia, nephrolithiasis, and chronic pancreatitis,chronic atrial fibrillation, on Eliquis. Exacerbation of congestive heart failure Seen and examined by me and Dr. Thomson Objective - Vital Signs/Intake and Output Vital Signs (last 24 hours): Temp Pulse Resp BP Pulse Ox 97.8 F 63 20 132/78 98 10/31/18 22:00 10/31/18 22:00 10/31/18 22:00 10/31/18 22:00 10/31/18 22:00 - Medications Medications: Current Medications Allopurinol (Zyloprim) 200 mg PO DAILY [facility] Amylase (Pancrease [id number] [id number] [id number] U) 15,000 unit PO AC [facility] Last Admin: 10/31/18 16:34 Dose: 15,000 unit Apixaban (Eliquis) 5 mg PO Q12 [facility]; Protocol Last Admin: 10/31/18 22:39 Dose: 5 mg Carvedilol (Coreg) 3.125 mg PO BID [facility] Last Admin: 10/31/18 18:18 Dose: 3.125 mg Colchicine (Colocrys) 0.6 mg PO BID [facility] Last Admin: 10/31/18 18:16 Dose: 0.6 mg Digoxin (Lanoxin) 0.25 mg PO 1400 [facility] Last Admin: 10/31/18 14:03 Dose: 0.25 mg Famotidine (Pepcid) 20 mg PO DAILY [facility] Last Admin: 10/31/18 10:31 Dose: 20 mg Furosemide (Lasix) 80 mg PO BID [facility] Last Admin: 10/31/18 18:19 Dose: 80 mg Hydromorphone HCl (Dilaudid) 1 mg IVP Q4H PRN PRN Reason: Pain, severe (8-10) Last Admin: 11/01/18 06:38 Dose: 1 mg Levalbuterol HCl (Xopenex) 0.63 mg IH TIDRESP [facility] Last Admin: 11/01/18 07:57 Dose: 0.63 mg Methylprednisolone (Solu-Medrol) 40 mg IVP Q12 [facility] Last Admin: 10/31/18 22:43 Dose: 40 mg Nicotine (Nicoderm Cq) 1 patch TD DAILY [facility] Last Admin: 10/31/18 10:32 Dose: 1 patch Spironolactone (Aldactone) 25 mg PO BID [facility] Last Admin: 10/31/18 18:18 Dose: 25 mg Verapamil HCl (Calan Sr Tab) 120 mg PO DAILY [facility] Last Admin: 10/31/18 10:35 Dose: 120 mg - Labs Labs: 11/01/18 07:15 11/01/18 07:15 - Constitutional Appears: Non-toxic, No Acute Distress - Head Exam Head Exam: NORMAL INSPECTION, NORMOCEPHALIC - Eye Exam Eye Exam: Normal appearance Pupil Exam: NORMAL ACCOMODATION - ENT Exam ENT Exam: Mucous Membranes Moist - Respiratory Exam Respiratory Exam: Decreased Breath Sounds, Clear to Ausculation Bilateral, NORMAL BREATHING PATTERN - Cardiovascular Exam Cardiovascular Exam: +S1, +S2 - GI/Abdominal Exam GI & Abdominal Exam: Soft, Normal Bowel Sounds - Extremities Exam Extremities Exam: Full ROM Additional comments: 2-3+ edema. left foot pain - Neurological Exam Neurological Exam: Alert, Awake, Oriented x3 - Psychiatric Exam Psychiatric exam: Normal Affect, Normal Mood - Skin Skin Exam: Dry, Normal Color, Warm Assessment and Plan - Assessment and Plan (Free Text) Assessment: A 37 year old male morbidly obese who came in to the ER due to shortness of breath and leg swelling. He is known to service due to multiple admissions of similar symptoms.He has not followed up with PMD for the last 5 months. He claimed to be depressed. History of non-ischemic cardiomyopathy, CHF, diabetes, hypertension, hyperlipidemia,chronic back pain, nephrolithiasis, and chronic pancreatitis,chronic atrial fibrillation, on Eliquis,pyelonephritis, GERD, history of cystoscopy retrograde extraction and insertion and replacement of pigtail stent. diaphoretic. Mild shortness of breath at rest. Bilateral leg edema 4+. Chest X ray showed pulmonary vascular congestion with diffuse bilateral infiltrates right greater than left. BNP elevated 2190. Troponin borderline normal 0.03. BUN/Creatinine normal. Exacerbation of acute on chronic systolic dysfunction congestive heart failure.. Last Echo on 04/25/18 showed dilatation of four chambers consistent with non ischemic cardiomyopathy. LVEF 30-35%. Moderate MR/TR. RVSP 51 mmHg. Primacor drip completed. On IV Lasix. Diuresing well, edema on lower extremities less compared to admission. Complaining of back pain due to renal pigtail stent. Evaluated by Dr. Summers .Cancelled renal stent replacement yesterday due to tachycardia and co-morbi dities. Dr. Summers will reschedule. Also he was complaining of left foot pain possible gout arthritis. Solumedrol and Colchicine given with some relief. Cardiac status stable, shortness of breath improved. Plan: Cancelled stent replacement yesterday by Dr. Summers due to tachycardia and cardiac co-morbidities, reschedule as out patient No distress, complaining of left foot pain, gouty arthritis On Solumedrol and Colchicine with relief Heart rate controlled, 60-70/min Blood pressure controlled Cardiac status stable, shortness of breath improved On Eliquis 5 mg BID,Coreg 3.125 mg BID,Lasix 80 mg BID, Aldactone 25mg BID Calan SR 120 mg daily, Nicoderm patch daily, Digoxin 0.25 mg daily Continue to diurese Continue current treatment Continue current medications Discharge planning Will follow up Plan and treatment discussed with Dr. Thomson
[2018-11-01] MEDS: Amylase/Lipase/Protease 5,000 Units ECC PO SCH ×3 (08:27→16:21)
[2018-11-01] MEDS: Verapamil 120 mg ER Tab PO SCH (10:18)
[2018-11-01] MEDS: MethylPREDNISolone 40 mg Vial IVP SCH ×2 (10:21→21:23)
[2018-11-01] MEDS: Digoxin 250 mcg (0.25 mg) Tab PO SCH (13:59)
[2018-11-01 14:01] VITALS: PULSE 64
--- NOTE | 2018-11-01 15:56 | PN ---
DATE: 11/01/2018 SUBJECTIVE: The patient was seen lying in bed. He is comfortable. He does not appear to be in any kind of distress. He complains of pain in his left ankle. PHYSICAL EXAMINATION: GENERAL: Morbidly obese young male lying in bed. VITAL SIGNS: Blood pressure 122/80, heart rate 85, respiratory rate 20, temperature 97.4. HEENT: Normocephalic, atraumatic, positive. No pallor. NECK: Supple, no JVD. LUNGS: Bilateral equal entry, bilateral rhonchi, no rales. CARDIAC: S1, S2, regular rhythm, no murmur, no rub. ABDOMEN: Obese, distended, soft, nontender, bowel sounds present. EXTREMITIES: 1+ pitting edema of the left ankle, mild tenderness. Intake and output 1680/1000. LABORATORY DATA: WBC 13, hemoglobin 15.2, hematocrit 46, platelets 404. Sodium 133, potassium 4.3, chloride 93, CO2 31, BUN 58, creatinine 1.5, glucose 142, calcium 9.5, phosphorus 3.9, magnesium 2.6, albumin 4.3. CURRENT MEDICATIONS: Aldactone 25 b.i.d., Calan 120, Colcrys 0.6 b.i.d., Coreg 3.125 b.i.d., Dilaudid, Eliquis, Lanoxin, Lasix 80 b.i.d., Pancrease, Pepcid, Solu-Medrol 40 IV every 12 hours, Xopenex, Zyloprim. ASSESSMENT: 1. Status post decompensated congestive heart failure/volume overload, now compensated. 2. Chronic obstructive pulmonary disease exacerbation. 3. Morbid obesity. 4. Acute gout? 5. Stable chronic kidney disease stage III. PLAN: 1. Taper steroids. 2. Continue allopurinol and colchicine. 3. Continue Lasix 80 b.i.d. p.o., Aldactone 25 b.i.d. 4. Discharge planning. Angelica Don MD
[2018-11-02] MEDS ORDERED: Morphine 4 mg/ml ISec IVP STA (01:58)
--- NOTE | 2018-11-02 02:04 | DS ---
SUBJECTIVE: The patient is a 37 years old seen and examined came in with shortness of breath, leg swelling. He was on , was diuresed. Started to develop excruciating left ankle pain, was unable to walk, was treated for gouty arthritis, still complaining of pain. PHYSICAL EXAMINATION: VITAL SIGNS: Patient is afebrile, pulse rate 85, respiration 20, and blood pressure 122/80. LUNGS: Bilateral fair airflow. No rhonchi or crackle. HEART: S1 and S2 audible. ABDOMEN: Soft, obese, nontender. No rebound, no guarding. EXTREMITIES: Left ankle swelling has significantly improved. LABORATORY DATA: WBC 13.1, hemoglobin 15, hematocrit 46, and platelets 404. Chemistry; sodium 133, potassium 4.3, chloride 93, CO2 of 31, BUN 58, creatinine 1.5, blood sugar 142. ASSESSMENT AND PLAN: 1. Nonischemic cardiomyopathy. 2. Hypertension. 3. Hyperlipidemia. 4. Chronic kidney disease. 5. Gouty arthritis. PLAN: Patient is going to be discharged home today. I will give him colchicine 0.6 daily for a month and then taper it down. He has been started on allopurinol 200 daily. He will switched to p.o. analgesic and will follow with Dr. Don, Dr. Thomson and myself as outpatient.. Also gave him 5 days of prednisone twice a day. Sammy Santiago MD
[2018-11-02] MEDS: Levalbuterol 0.63 MG/3 ML Inhal Soln UD IH SCH (07:36)
[2018-11-02 07:38] LABS: ALB/GLOB RATIO 0.9 (1.1-1.8); ALBUMIN 4.2 g/dL (3.0-4.8); ALT/SGPT < 6 U/L (7-56); AST/SGOT 16 U/L (17-59); BLOOD UREA NITROGEN 61 mg/dL (7-21); CALCIUM 9.3 mg/dL (8.4-10.5); GFR NON-AFRICAN AMERICAN 56
[2018-11-02 08:18] VITALS: PULSE 50; RESP 20; TEMP 97.8; O2SAT 98
[2018-11-02] MEDS ORDERED: oxyCODONE 15 mg Immediate Release Tab PO STA (09:04)
[2018-11-02] MEDS: Amylase/Lipase/Protease 5,000 Units ECC PO SCH (09:24)
[2018-11-02] MEDS: Verapamil 120 mg ER Tab PO SCH (09:25)
[2018-11-02] MEDS: MethylPREDNISolone 40 mg Vial IVP SCH (09:30)
[2018-11-02 09:37] VITALS: BP 119/77
--- NOTE | 2018-11-02 15:27 | PN ---
DATE: 11/02/2018 LOCATION: Room 570, bed 1. REASON FOR CONSULTATION: Followup of CHF, decompensated congestive heart failure, nonischemic cardiomyopathy, obesity. SUBJECTIVE: The patient's shortness of breath has improved. The patient's swelling in the legs has improved. Denies any chest pain or palpitation. PHYSICAL EXAMINATION: VITAL SIGNS: Blood pressure 119/77, respirations 20, pulse 50, and temperature 97.8. HEENT: Head is normocephalic. Eyes: Pupils normal, conjunctivae normal. Nose and throat: Normal. NECK: JVP low. Carotid equal. LUNGS: Clear. CARDIOVASCULAR: S1 and S2. ABDOMEN: Protuberant. No organomegaly. EXTREMITIES: No clubbing. No cyanosis. Edema in the legs has improved. LABORATORY DATA: WBC 13.1, hemoglobin 15.2, hematocrit 46.4, platelets 404. Sodium 134, potassium 4.6, BUN 61, creatinine 1.4. AST 16, ALT less than 6. Total protein is 9.1. Albumin is 4.2. DIAGNOSES: Decompensated congestive heart failure, cardiomyopathy, chronic atrial fibrillation, nonischemic cardiomyopathy, nonobstructive coronary artery disease, renal dysfunction, morbid obesity, body mass index 55 kg/m2. PLAN: The patient, clinically CHF has improved. The patient was again advised to lose weight. The patient is on spironolactone 25 b.i.d., verapamil ER 120 daily, colchicine 0.6 b.i.d., carvedilol 3.125 b.i.d., Eliquis 5 mg every 12 hours, Lasix 80 mg b.i.d., Zyloprim 200 mg daily, digoxin 0.25 daily. We will continue present therapy and advised the patient to lose weight. We will follow with you. Shayna Jay MD
--- NOTE | 2018-11-03 04:03 | DS ---
HISTORY OF PRESENT ILLNESS: The patient is 37-year-old who was initially admitted with increasing leg swelling, increasing shortness of breath. He was on Primacor drip. He was diuresed. He was also evaluated by urologist. Plan was to do stent replacement, but the patient was not stable enough to undergo anesthesia, so it was postponed for two weeks and patient during this time, he developed pain in his left ankle, so it is warm and tender to touch. His uric acid was found to be 16, he was treated with IV steroids and colchicine and analgesics, doing well. Still complaining of pain in the left ankle and limps to walk. PHYSICAL EXAMINATION: GENERAL: On examination, he is awake, alert, oriented, communicative. VITAL SIGNS: The patient is afebrile, pulse 50, respirations 20, blood pressure 135/90. LUNGS: Bilateral fair airflow. No rhonchi or crackle. HEART: S1 and S2 audible. ABDOMEN: Soft, nontender. No rebound. No guarding. NEUROLOGIC: He is awake, alert, oriented, communicative. LABORATORY DATA: Sodium 134, potassium 4.6, chloride 95, CO2 of 30, BUN 61, creatinine 1.4, blood sugar 132. ASSESSMENT: 1. Nonischemic cardiomyopathy. 2. Chronic kidney disease. 3. Left nephrolithiasis status post stent placement. 4. Status post cholecystectomy. 5. History of hypertension. 6. Left ankle gouty arthritis. 7. Recurrent pancreatitis secondary to alcohol abuse. PLAN: The patient is going to be discharge today. He is being discharged on allopurinol 200 daily. He has nebulizer medication at home. He is on Pepcid. He will continue his Pancrease. The patient is active smoker. He is advised to quit. He will be maintained on Lasix 80 twice a day. He is on digoxin, Eliquis, Coreg, verapamil, and spironolactone. Sammy Santiago MD
--- NOTE | 2018-11-05 20:21 | CON ---
DATE: 10/29/2018 UROLOGY CONSULTATION REASON FOR CONSULTATION: Renal colic. HISTORY OF PRESENT ILLNESS: Mr. Leblanc is a very pleasant gentleman. He previously seen and Dr. Love. He has seen other urologist other time. Because of an indwelling stent, he is in the hospital under the care of Dr. Santiago with multiple cardiac and medical issues. Urology consulted to see if we could change the stent. See below plan. PAST MEDICAL AND SURGICAL HISTORY: Listed on the chart, CHF. Multiple medical issues. MEDICATIONS: See the chart. SOCIAL HISTORY: Essentially unremarkable. It is mentioned on the social note, he is extremely pleasant about the entire matter. It has been very difficult for the patient living with a lot of difficult pain. I told him we will do our best to help him that from urologic standpoint. See the plans Listed below. PHYSICAL EXAMINATION GENERAL: Well-nourished male in no apparent distress, currently resting comfortably. He was in the ICU, he is now on the floor. He is resting comfortably. His body habitus is noted. I did not really have any CVA tenderness and it is difficult to evaluate of abdominal distention. Remainder of the physical exam is relatively normal limits. LABORATORY DATA: See chart. Last CT scan we had does not definitely demonstrate any see the plans listed below. ASSESSMENT AND PLAN: The patient is a very pleasant gentleman. I discussed with Dr. Santiago, we will try to change the stent while he is here. As best as we can, we will wait for medical clearance. Dr. Santiago states that he will probably be cleared. Today is 10/29/2018, we are going to do our best to do by 10/30/2018. I explained this to the patient. Risks, benefits, and alternatives will be discussed, but again . Juan Ramon Summers MD
--- NOTE | 2018-11-05 23:13 | PN ---
DATE: 10/30/2018 UROLOGY FOLLOWUP PROGRESS NOTE Please see the consult note from 10/29/2018. We were planning to change his stent today. The anesthesiologist, given his ASA is still high, is uncomfortable. Given his medication list, given his vital signs, given his weight and obesity. So, at this point, we are unable to do the procedure. PAST MEDICAL HISTORY: No other changes, see the plans as listed below. PAST SURGICAL HISTORY: No other changes, see the plans as listed below. PHYSICAL EXAMINATION: No change. DIAGNOSES: Urolithiasis, hematuria, renal colic, and stent pain and discomfort. ASSESSMENT AND PLAN: In summary, I spent a long time with the patient, there is also a handwritten note that I put in the chart. I explained to the patient the risks and the dangers. He asked if he could sign away, but he does not care to . I explained that this is not the way the hospital works and it is not in his best interest he can find such a thing. I looked back at the date, we last changed his stent on 08/19/2018 or so, so we are not even close to 2 months let alone 3 or 4 months and the stent now has gotten better with time period. There is no evidence of encrustation. I am going to recommend that we get a repeat CT scan again as mentioned in the previous consult note, it is not even clear that there was a definite absolute stone. However, I spent a tremendous amount of time probably close to almost 30 minutes with the patient. I offered him to take the stent out with just local anesthesia and he said he cannot do that at all, no possibility. I offered him maybe to remove the stent and he said anyway when that happens he has to have it reinserted by somebody else overtime, so he does not really want the stent removed. He cannot be a candidate to go to the [facility]. So, I spent a long time with him, I explained to him about the risk. I explained to him about the anesthesia risk specifically in general and also the risk to his kidneys and colic, etc. So, at this point, I understand it is very challenge, despite he is an only 37-year-old gentleman, he has got multiple issues. So what we are going to do at this point is not do any procedure today, we are going to have the patient go home and get as much medical optimization as possible. We are going to try to schedule him at this time that it is a little bit early in the day and see if we can optimize not just his medical, but his cardiac and his respiratory status and then further plans will follow. I did also explained to the patient that we will get a CT scan and we will make the date in about 4 weeks from now. Juan Ramon Summers MD
== END 2018-11-02 13:54 | disposition home or self-care (01) | DRG 291 ==
LOC: ED 21:29 → ERH 23:43 → 2RNO 10-25 01:10 → 5RSO 10-30 18:28
PROVIDERS: ADMIT Internal Medicine; ATTEND Internal Medicine
PROC: 3E0F7GC Introduction of Other Therapeutic Substance into Respiratory Tract, Via Natural or Artificial Opening (ICD-10-PCS; principal; 2018-10-25)
DX: I13.0 Hypertensive heart and chronic kidney disease with heart failure and stage 1 through stage 4 chronic kidney disease, or unspecified chronic kidney disease (principal); I50.23 Acute on chronic systolic (congestive) heart failure; Z68.43 Body mass index [BMI] 50.0-59.9, adult; K86.0 Alcohol-induced chronic pancreatitis; N13.2 Hydronephrosis with renal and ureteral calculous obstruction; F11.20 Opioid dependence, uncomplicated; J44.1 Chronic obstructive pulmonary disease with (acute) exacerbation; E11.22 Type 2 diabetes mellitus with diabetic chronic kidney disease; N18.3 Chronic kidney disease, stage 3 (moderate); E66.01 Morbid (severe) obesity due to excess calories; I48.2 Chronic atrial fibrillation; F17.210 Nicotine dependence, cigarettes, uncomplicated; M10.072 Idiopathic gout, left ankle and foot; F10.10 Alcohol abuse, uncomplicated; Z91.19 Patient's noncompliance with other medical treatment and regimen; Z79.01 Long term (current) use of anticoagulants; K21.9 Gastro-esophageal reflux disease without esophagitis; E78.5 Hyperlipidemia, unspecified; I42.0 Dilated cardiomyopathy; I25.10 Atherosclerotic heart disease of native coronary artery without angina pectoris; I25.5 Ischemic cardiomyopathy; G47.30 Sleep apnea, unspecified; K27.9 Peptic ulcer, site unspecified, unspecified as acute or chronic, without hemorrhage or perforation

== ENCOUNTER 2018-11-22 22:04 | Inpatient (IN) | payer BC ==
[2018-11-22] MEDS ORDERED: Morphine 4 mg/ml ISec IVP STA (22:26)
--- NOTE | 2018-11-22 22:30 | ED PDOC ---
Arrival/HPI - General Chief Complaint: Male Genitourinary Time Seen by Provider: 11/22/18 22:15 - History of Present Illness Narrative History of Present Illness (Text): 11/22/18 22:27 37 year old male with a past medical history of non-ischemic cardiomyopathy, CHF, diabetes, hypertension, hyperlipidemia, nephrolithiasis, and chronic pancreatitis, presents to the emergency department c/o shortness of breath, for 4 days. Patient states he saw his pmd 4 days ago when the symptoms started. Patient is igor c/o right flank pain due to h/o kidney stone, he states that he currently has a stent in one of his kidneys and on his last admission, the stent was supposed to be removed however the anesthesiologist did not feel comfortable with him getting generalized anesthesia due to his medical history. Patient denies any fevers, chills, URI, chest pain, headache, dizziness, nausea, abdominal pain, vomiting, diarrhea, or any other complaint. PMD [facility] Past Medical History - Past History Past History: Non-Contributing - Infectious Disease Hx of Infectious Diseases: None - Tetanus Immunization Tetanus Immunization: Unknown - Cardiac Hx Cardiac Disorders: Yes Hx Congestive Heart Failure: Yes Hx Pacemaker: No - Pulmonary Hx Respiratory Disorders: Yes Hx Asthma: Yes Hx Sleep Apnea: (pt denies sleep apnea) Other/Comment: trouble sleeping due to sob - Neurological Hx Paralysis: No - HEENT Hx HEENT Disorder: No - Renal Hx Renal Disorder: Yes Hx Kidney Stones: Yes Hx Renal Failure: Yes Other/Comment: renal stent - Endocrine/Metabolic Hx Endocrine Disorders: No - Hematological/Oncological Hx Blood Transfusions: No Hx Blood Transfusion Reaction: No - Integumentary Hx Dermatological Disorder: Yes (foul smelling body odor) Other/Comment: pt refusing to have skin touched but did notice some dry skin to feet - Musculoskeletal/Rheumatological Hx Musculoskeletal Disorders: No - Gastrointestinal Hx Gastrointestinal Disorders: Yes (morbidly obese, abd pain) Hx Diverticulitis: Yes Hx Gall Bladder Disease: Yes Hx Gastroesophageal Reflux: Yes Hx Pancreatitis: Yes (quit drinking since pancreatitis) - Genitourinary/Gynecological Hx Genitourinary Disorders: Yes (urinary retention, dysuria) Hx Hematuria: Yes Hx Urinary Tract Infection: Yes Other/Comment: pylonephritis - Psychiatric Hx Emotional Abuse: No Hx Physical Abuse: No Hx Substance Use: No - Past Surgical History Past Surgical History: No Previous - Surgical History Hx Cholecystectomy: Yes Other/Comment: left ureteral pigtail stent and replacement, cysto - Anesthesia Hx Anesthesia Reactions: No Hx Malignant Hyperthermia: No - Suicidal Assessment Feels Threatened In Home Enviroment: No Family/Social History Family/Social History: No Known Family HX Smoking Status: Heavy Smoker > 10 Cigarettes Daily Hx Alcohol Use: No Hx Substance Use: No Hx Substance Use Treatment: No Allergies/Home Meds Allergies/Adverse Reactions: Allergies LUZ Inhibitors Allergy (Severe, Verified 07/22/18 14:37) ANGIOEDEMA Home Medications: Home Meds Medication Instructions Recorded Confirmed Amylase/Lipase/Protease [Pancrease 3 tab PO AC 12/13/17 07/22/18 [id number]] Review of Systems - Review of Systems Constitutional: Fatigue. absent: Fevers Respiratory: SOB. absent: Cough, Sputum Cardiovascular: absent: Chest Pain, Palpitations, Edema Gastrointestinal: Abdominal Pain (+chronic abdominal pain from chronic pancreatitis). absent: Nausea, Vomiting Genitourinary Male: absent: Dysuria, Frequency, Hematuria Musculoskeletal: Arthralgias (+h/o gout), Back Pain. absent: Neck Pain Skin: absent: Rash, Pruritis, Skin Lesions Neurological: absent: Headache, Dizziness Physical Exam Respiratory Rate: Normal Appearance: Positive for: Well-Appearing, Non-Toxic, Comfortable, Other (Speaking in full sentences, no respiraotr distress. Patient is morbidly obese. ) Pain Distress: None Mental Status: Positive for: Alert and Oriented X 3 - Systems Exam Head: Present: Atraumatic, Normocephalic Pupils: Present: PERRL Extroacular Muscles: Present: EOMI Conjunctiva: Present: Normal Mouth: Present: Moist Mucous Membranes Neck: Present: Normal Range of Motion Respiratory/Chest: Present: Clear to Auscultation, Good Air Exchange. No: Respiratory Distress, Accessory Muscle Use, Wheezes, Rales, Rhonchi Cardiovascular: Present: Regular Rate and Rhythm, Normal S1, S2. No: Murmurs Abdomen: No: Tenderness, Distention, Peritoneal Signs Back: Present: Normal Inspection. No: CVA Tenderness, Midline Tenderness Upper Extremity: Present: Normal Inspection. No: Cyanosis, Edema Lower Extremity: Present: Normal Inspection. No: Edema Neurological: Present: GCS=15, CN II-XII Intact, Speech Normal Skin: Present: Warm, Dry, Normal Color. No: Rashes Psychiatric: Present: Alert, Oriented x 3, Normal Insight, Normal Concentration Medical Decision Making ED Course and Treatment: 11/22/18 22:32 Plan: -- Labs -- IV -- Urinalysis -- EKG -- CXR -- Morphine / Zofran -- Reassess and disposition 11/23/18 00:57 EKG : A fib with RVR at 113 bpm. CXR : CM, +increased in vascular markings, but compared from last CXR is improved. Labs reviewed : trop 0.04, bnp 625, hgb 18, bun 35 / creat 1.7 On reevaluation, patient continues to c/o R flank pain, states that he has a high pain tolerance and takes dilaudid at home. On exam, patient remains awake alert and oriented 3 in no acute distress, laying in bed comfortably. Given another dose of morphine 4 mg IV and zofran 4 mg IV. Results d/w the patient. Case d/w Dr. Santiago request that the patient be admitted, not observation, with consults to Dr. Jay and Dr. Summers. Patient states he fully agrees with and understands further plan of care. I have given the patient opportunity to ask any additional questions. 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 Disposition/Present on Arrival - Present on Arrival Any Indicators Present on Arrival: No History of DVT/PE: No History of Uncontrolled Diabetes: No Urinary Catheter: No History of Decub. Ulcer: No History Surgical Site Infection Following: None - Disposition Have Diagnosis and Disposition been Completed?: Yes Diagnosis: CHF exacerbation, Right flank pain Disposition: HOSPITALIZED Disposition Time: 01:00 Patient Plan: Admission Patient Problems: Current Active Problems Problem Status Onset CHF exacerbation Acute Right flank pain Acute Condition: STABLE Discharge Instructions (ExitCare): Heart Failure (ED) Forms: [employer] (Kyrgyz)
[2018-11-22 23:18] LABS: BASO # 0.01 K/mm3 (0.0-2.0); BASO % 0.1 % (0.0-3.0); EOS % 0.4 % (1.5-5.0); LYMPH # 2.1 (1.2-3.4); LYMPH % 22.4 % (22.0-35.0); MEAN CELL VOLUME 93.3 fl (80.0-105.0); MEAN CORPUSCULAR HEMOGLOBIN 31.1 pg (25.0-35.0); MEAN CORPUSCULAR HGB CONC 33.3 g/dl (31.0-37.0); MEAN PLATELET VOLUME 10.3 fl (7.0-11.0); MONO # 0.9 (0.1-0.6); MONO % 9.6 % (1.0-6.0); RBC 5.86 10^6/uL (3.5-6.1); RED CELL DISTRIBUTION WIDTH 16.8 % (11.5-14.5); WHITE BLOOD COUNT 9.6 10^3/uL (4.5-11.0)
[2018-11-22 23:36] LABS: ALB/GLOB RATIO 1.1 (1.1-1.8); ALBUMIN 4.7 g/dL (3.0-4.8); CALCIUM 10.6 mg/dL (8.4-10.5); INR 1.21; PARTIAL THROMBOPLASTIN TIME 40.4 Seconds (26.9-38.3); PROTHROMBIN TIME 13.4 SECONDS (9.4-12.5)
[2018-11-22 23:37] LABS: HEMOGLOBIN 18.2 g/dL (14.0-18.0)
[2018-11-23] MEDS ORDERED: Morphine 4 mg/ml ISec IVP STA (00:19)
[2018-11-23 00:41] LABS: TROPONIN I 0.04 ng/mL
[2018-11-23] MEDS: HYDROmorphone 1 mg/ml ISec IVP PRN ×6 (02:10→22:15)
[2018-11-23 03:04] VITALS: BMI 52.4
--- NOTE | 2018-11-23 06:00 | CP.PCM.PN ---
<Jacek Hodge - Last Filed: 11/23/18 06:02> Subjective - Date & Time of Evaluation Date of Evaluation: 11/23/18 Time of Evaluation: 05:20 - Subjective Subjective: Paged by nurse Patient was noted to be tachycardic with HR fluctuating into 120-130s Also complaining of abdominal pain and leg pain In ED troponin was .04 and EKG showed afib Orders given to administer home dose Carvedilol, Allopurinol, Toradol Patient was examined at bedside, did admit to chest discomfort as well HR 110 and afib on telemetry Dilaudid PRN was administered. Repeat troponin was ordered. Jacek Hodge PGY-1 Objective - Vital Signs/Intake and Output Vital Signs (last 24 hours): Temp Pulse Resp BP Pulse Ox 97.4 F L 143 H 22 142/93 H 97 11/23/18 02:07 11/23/18 04:00 11/23/18 02:07 11/23/18 04:00 11/23/18 02:07 - Medications Medications: Current Medications Apixaban (Eliquis) 2.5 mg PO BID [facility]; Protocol Furosemide (Lasix) 40 mg IVP DAILY [facility] Hydromorphone HCl (Dilaudid) 1 mg IVP Q4H PRN PRN Reason: Pain, severe (8-10) Last Admin: 11/23/18 05:35 Dose: 1 mg Levalbuterol HCl (Xopenex) 0.63 mg IH Q8 [facility] Ondansetron HCl (Zofran Inj) 4 mg IVP Q6 PRN PRN Reason: Nausea/Vomiting - Labs Labs: 11/22/18 23:10 11/22/18 23:10 PT 13.4 SECONDS (9.4-12.5) H 11/22/18 23:10 INR 1.21 11/22/18 23:10 APTT 40.4 Seconds (26.9-38.3) H 11/22/18 23:10 <Gabriel Portillo - Last Filed: 11/23/18 19:29> Objective - Vital Signs/Intake and Output Vital Signs (last 24 hours): Temp Pulse Resp BP Pulse Ox 98.6 F 71 20 111/78 95 11/23/18 18:00 11/23/18 18:00 11/23/18 18:00 11/23/18 18:00 11/23/18 06:00 Intake and Output: 11/23/18 11/24/18 18:59 06:59 Intake Total 1995 Output Total 1000 Balance 996 - Medications Medications: Current Medications Apixaban (Eliquis) 2.5 mg PO BID [facility]; Protocol Last Admin: 11/23/18 18:19 Dose: 2.5 mg Furosemide (Lasix) 40 mg IVP DAILY [facility] Hydromorphone HCl (Dilaudid) 1 mg IVP Q4H PRN PRN Reason: Pain, severe (8-10) Last Admin: 11/23/18 18:19 Dose: 1 mg Sodium Chloride (Sodium Chloride 0.9%) 1,000 mls @ 50 mls/hr IV .Q20H [facility] Stop: 11/23/18 23:59 Last Admin: 11/23/18 10:13 Dose: 50 mls/hr Levalbuterol HCl (Xopenex) 0.63 mg IH Q8 [facility] Last Admin: 11/23/18 14:30 Dose: Not Given Ondansetron HCl (Zofran Inj) 4 mg IVP Q6 PRN PRN Reason: Nausea/Vomiting Phenazopyridine HCl (Pyridium) 100 mg PO BID [facility] Last Admin: 11/23/18 18:00 Dose: Not Given - Labs Labs: 11/22/18 23:10 11/22/18 23:10 PT 13.4 SECONDS (9.4-12.5) H 11/22/18 23:10 INR 1.21 11/22/18 23:10 APTT 40.4 Seconds (26.9-38.3) H 11/22/18 23:10 Attending/Attestation - Attestation I have personally seen and examined this patient.: No I have fully participated in the care of the patient.: No I have reviewed all pertinent clinical information, including history, physical exam and plan: No
[2018-11-23 07:08] LABS: PH,URINE 5.5 (4.7-8.0); URINE BILIRUBIN SMALL (NEGATIVE); URINE BLOOD SMALL (NEGATIVE); URINE GLUCOSE (UA) NEGATIVE (NEGATIVE); URINE LEUKOCYTE ESTERASE SMALL Leu/uL (NEGATIVE); URINE PROTEIN 30 mg/dL (<30 mg/dL); URINE UROBILINOGEN 0.2 E.U./dL (<1 E.U./dL)
[2018-11-23 07:09] LABS: URINE APPEARANCE SL CLOUDY (CLEAR); URINE COLOR YELLOW (YELLOW)
[2018-11-23 07:33] LABS: URINE BACTERIA MOD /hpf; URINE RBC 0 - 2 /hpf (0-2)
[2018-11-23] MEDS: Levalbuterol 0.63 MG/3 ML Inhal Soln UD IH SCH ×2 (08:19→14:30)
--- NOTE | 2018-11-23 09:18 | CARD ---
APPROVED REPORT Date of service: 11/22/2018 EKG Measurement Heart [id number] <Conclusion> Atrial fibrillation with rapid ventricular response with premature ventricular or aberrantly conducted complexes Anterior infarct, age undetermined Abnormal ECG
--- NOTE | 2018-11-23 09:31 | RAD ---
Date of service: 11/22/2018 HISTORY: SOB COMPARISON: 10/24/2018 FINDINGS: LUNGS: No active pulmonary disease. PLEURA: No significant pleural effusion identified, no pneumothorax apparent. CARDIOVASCULAR: No aortic atherosclerotic calcification present. Moderate cardiomegaly no pulmonary vascular congestion. OSSEOUS STRUCTURES: No significant abnormalities. VISUALIZED UPPER ABDOMEN: Normal. OTHER FINDINGS: None. IMPRESSION: No active disease.
[2018-11-23] MEDS ORDERED: Sodium Chloride 0.9% 1,000 ML IV SCH (10:00)
--- NOTE | 2018-11-23 19:23 | CON ---
DATE: 11/23/2018 REASON FOR CONSULTATION: Followup, cardiac evaluation with history of nonischemic cardiomyopathy, CHF, atrial fibrillation, admitted with abdominal pain, says that the patient needs a stent to be removed, and complaining of flank pain. BRIEF CLINICAL HISTORY: A 37-year-old male with past medical history significant for nonischemic cardiomyopathy, diabetes, hypertension, hyperlipidemia, morbidly obese, history of chronic atrial fibrillation, history of recurrent pancreatitis, came in with complaint of abdominal pain. Denies any chest pain, shortness of breath, or any palpitation. PAST MEDICAL HISTORY: Significant for morbid obesity, hypertension, chronic atrial fibrillation, history of alcohol abuse in the past, history of nonischemic cardiomyopathy, history of cardiac catheterization 2 to 3 years ago, history of nephrolithiasis, supposed to be removal of the stone, but the patient could not be accommodated in the table. The patient has a stent in the ureter. RECENT CARDIAC WORKUP FOLLOWS: The patient had last echo on 04/25/2018 with 4-chamber dilatation; nonischemic cardiomyopathy, ejection fraction 30% to 35%; moderate MR; moderate TR, RV systolic pressure of 51; history of chronic atrial fibrillation, on Eliquis; history of chronic pancreatitis; history of cardiac catheterization couple of years ago at [facility]. CURRENT MEDICATIONS: The patient is taking at home Aldactone, Lasix, digoxin, carvedilol, Eliquis, and allopurinol. REVIEW OF SYSTEMS: As per HPI. PHYSICAL EXAMINATION: GENERAL: Height of the patient is 6 feet 3 inches, weight of the patient is 420 pounds, and body mass index 52.5 kg/m2. VITAL SIGNS: Temperature afebrile, heart rate 108, and blood pressure 120/60. HEENT: PERRLA. Extraocular muscles intact. NECK: Supple. No carotid bruit or thyromegaly. CHEST: Clear to auscultation. HEART: S1 and S2 regular. ABDOMEN: Soft. EXTREMITIES: Clubbing and cyanosis negative. LABORATORY DATA: Blood workup as follows; WBC 9.6, hemoglobin 18.2, hematocrit 54.7, and platelet count 226. Chemistry shows sodium 137, potassium 4.9, chloride 97, carbon dioxide 22, anion gap of 6, BUN 35, creatinine 1.7, creatinine clearance 45 mL, and troponin 0.04. IMPRESSION: A 37-year-old morbidly obese male with past medical history significant for diabetes, hypertension, hyperlipidemia, morbid obesity, chronic renal insufficiency, chronic atrial fibrillation, nonischemic cardiomyopathy, history of recurrent pancreatitis, history of alcohol abuse in the past, admitted with abdominal pain, flank pain, and history of renal insufficiency. Troponin indeterminate range probably secondary to renal insufficiency. RECOMMENDATIONS: We will start low-dose hydration because of renal insufficiency, 50 mL. We will resume back previous medication, Coreg. Avoid nephrotoxin medication, avoid LUZ inhibitors now. Followup serial CPK and troponin. Currently, the patient is not in failure, history of congestive heart failure secondary to systolic dysfunction, is chronic, not an acute. We will start gentle hydration. We will follow with you. Thank you Dr. Santiago for providing us the opportunity in taking care of the patient, Gareth Leblanc. Shayna Thomson MD [facility]
--- NOTE | 2018-11-23 22:30 | HP ---
DATE OF EXAM: 11/23/2018 HISTORY OF PRESENT ILLNESS: Patient is 37 years old, came to Emergency Room because of right flank pain, denies any nausea or vomiting. Denies any diarrhea. Complaint of shortness of breath, complaint of difficulty urination and burning upon urination. Denies any fever or chills at home. Patient is supposed to be scheduled to go replace his ureter stent. He was unable to get cardiology clearance, but because of increasing shortness of breath at the same time, he came to Emergency Room for further evaluation. PAST MEDICAL HISTORY: He has significant past medical history of; 1. Morbid obesity. 2. Nonischemic cardiomyopathy. 3. COPD. 4. Nephrolithiasis. 5. Status post left ureteral stent placement because of hydronephrosis. 6. Recurrent pancreatitis. 7. Peptic ulcer disease. SURGICAL HISTORY: Significant for his cholecystectomy. ALLERGY: HE IS ALLERGIC TO LUZ INHIBITORS. MEDICATION AT HOME: He is on spironolactone 25 mg twice a day, Lasix 80 mg twice a day, Pepcid 20 mg daily, digoxin 0.125 mg daily, Coreg 3.125 mg b.i.d., Eliquis 5 mg daily, Pancrease, allopurinol 300 mg daily. SOCIAL HISTORY: He is single. Used to be a heavy drinker, still smokes here and there. REVIEW OF SYSTEMS: Significant for shortness of breath, right flank pain, burning upon urination. PHYSICAL EXAMINATION GENERAL: He is awake and alert, able to communicate. VITAL SIGNS: He is afebrile. Pulse 108, respiration 18, blood pressure 120/60. HEART: S1 and S2 audible. LUNGS: Bilateral few expiratory rhonchi. ABDOMEN: Soft, obese, right flank discomfort, but no rebound or guarding. EXTREMITIES: Bilateral leg no edema. NEUROLOGIC: He is awake, alert, oriented, able to communicate. LABORATORY DATA: WBC 9.6, hemoglobin 18.2, hematocrit 54.7, platelet 226. PT 13.4, INR 1.021. Chemistry; sodium 137, potassium 4.9, chloride 99, CO2 of 27, BUN 35, creatinine 1.7, blood sugar 113, magnesium 2.4, BNP 625 and wbc's 5 to 10. X-ray chest, no active disease. ASSESSMENT AND PLAN: 1. Right flank pain. 2. Pyuria. 3. Congestive heart failure. 4. History of chronic obstructive pulmonary disease. 5. Morbid obesity. PLAN: We will keep patient on diuretics, start him on nebulizer treatment. Dr. Summers is consulted for possible ureteric stent replacement. We will follow up his electrolyte, his CBC and CMP in a.m. Sammy Santiago MD
[2018-11-24] MEDS: HYDROmorphone 1 mg/ml ISec IVP PRN ×6 (02:31→22:27)
[2018-11-24] MEDS: Levalbuterol 0.63 MG/3 ML Inhal Soln UD IH SCH ×4 (02:38→21:58)
[2018-11-24 07:24] LABS: BASO # 0.01 K/mm3 (0.0-2.0); BASO % 0.1 % (0.0-3.0); EOS # 0.1 (0.0-0.7); EOS % 1.6 % (1.5-5.0); HEMOGLOBIN 16.8 g/dL (14.0-18.0); LYMPH # 2.6 (1.2-3.4); LYMPH % 31.9 % (22.0-35.0); MEAN CELL VOLUME 93.6 fl (80.0-105.0); MEAN CORPUSCULAR HEMOGLOBIN 30.9 pg (25.0-35.0); MEAN CORPUSCULAR HGB CONC 33.1 g/dl (31.0-37.0); MEAN PLATELET VOLUME 10.3 fl (7.0-11.0); MONO # 0.7 (0.1-0.6); MONO % 8.4 % (1.0-6.0); RBC 5.43 10^6/uL (3.5-6.1); RED CELL DISTRIBUTION WIDTH 16.7 % (11.5-14.5); WHITE BLOOD COUNT 8.1 10^3/uL (4.5-11.0)
[2018-11-24 07:32] LABS: ALBUMIN 4.2 g/dL (3.0-4.8); CALCIUM 9.7 mg/dL (8.4-10.5)
--- NOTE | 2018-11-24 10:10 | CP.PCM.PN ---
Subjective - Date & Time of Evaluation Date of Evaluation: 11/24/18 Time of Evaluation: 06:15 - Subjective Subjective: Awake, alert, denies shortness of breath, complaining of back pain Reason for consultation and follow up: Cardiac evaluation of congestive heart failure, admitted for abdominal pain, needs renal stent to be changed or removed Seen and examined by me and Dr. Thomson Objective - Vital Signs/Intake and Output Vital Signs (last 24 hours): Temp Pulse Resp BP Pulse Ox 97.5 F L 73 18 121/89 100 11/24/18 06:00 11/24/18 06:00 11/24/18 06:00 11/24/18 06:00 11/24/18 06:00 Intake and Output: 11/24/18 11/24/18 06:59 18:59 Intake Total 2856 Output Total 1700 Balance 1156 - Medications Medications: Current Medications Apixaban (Eliquis) 2.5 mg PO BID [facility]; Protocol Last Admin: 11/23/18 18:19 Dose: 2.5 mg Furosemide (Lasix) 40 mg IVP DAILY [facility] Hydromorphone HCl (Dilaudid) 1 mg IVP Q4H PRN PRN Reason: Pain, severe (8-10) Last Admin: 11/24/18 06:38 Dose: 1 mg Levalbuterol HCl (Xopenex) 0.63 mg IH Q8 [facility] Last Admin: 11/24/18 02:38 Dose: Not Given Ondansetron HCl (Zofran Inj) 4 mg IVP Q6 PRN PRN Reason: Nausea/Vomiting Last Admin: 11/24/18 02:31 Dose: 4 mg Phenazopyridine HCl (Pyridium) 100 mg PO BID [facility] Last Admin: 11/23/18 18:00 Dose: Not Given - Labs Labs: 11/24/18 06:30 11/24/18 06:30 PT 13.4 SECONDS (9.4-12.5) H 11/22/18 23:10 INR 1.21 11/22/18 23:10 APTT 40.4 Seconds (26.9-38.3) H 11/22/18 23:10 - Constitutional Appears: Non-toxic, No Acute Distress - Head Exam Head Exam: NORMAL INSPECTION, NORMOCEPHALIC - Eye Exam Eye Exam: Normal appearance Pupil Exam: NORMAL ACCOMODATION - ENT Exam ENT Exam: Mucous Membranes Moist, Normal Exam - Respiratory Exam Respiratory Exam: Decreased Breath Sounds, NORMAL BREATHING PATTERN - Cardiovascular Exam Cardiovascular Exam: REGULAR RHYTHM, +S1, +S2 - GI/Abdominal Exam GI & Abdominal Exam: Soft, Normal Bowel Sounds - Extremities Exam Extremities Exam: Full ROM Additional comments: 1-2+ edema - Neurological Exam Neurological Exam: Alert, Awake, Oriented x3 - Psychiatric Exam Psychiatric exam: Anxious, Depressed - Skin Skin Exam: Dry, Normal Color, Warm Assessment and Plan - Assessment and Plan (Free Text) Assessment: A 38 year old male morbidly obese, who came in to the ER due to abdominal pain. History of hypertension, non ischemic cardiomyopathy, congestive heart failure,diabetes, hyperlipidemia, chronic back pain, nephrolithiasis (unable to do surgery due to morbid obesity) GERD, history of cystoscopy retrograde extraction and insertion and replacement of pig, tail stent, recurrent pancreatitis, chronic atrial fibrillation,on eliquis, history of alcohol abuse. Echo on 04/25/18 showed four chambers dilatation. LVEF 30-35 %, RVSP 51 mmHg, Moderate MR/TR. Chest X ray, no pulmonary congestion. Troponin indeterminate range maybe due to renal insufficieny. Denies chest pain. No evidence of congestive heart failure or acute coronary syndrome. Abdominal pain, flank pain. Plan: Mild flank pain, no distress, feels frustrated to be in the hospital again Heart rate controlled Blood pressure controlled On Eliquis 2.5 mg BID,Lasix 40 mg daily,Pyridium 100 mg BID Continue current treatment Continue current medications Dr. Summers to re evaluate renal stent Will follow up Plan and treatment discussed with Dr. Thomson
--- NOTE | 2018-11-24 15:38 | CON ---
DATE OF CONSULTATION: 11/23/2018 REASON FOR CONSULTATION: Chronic kidney disease stage 3, right-sided flank pain, burning in the urine. HISTORY OF PRESENT ILLNESS: A 37-year-old male known to me from multiple prior evaluations. The patient presented to the emergency room yesterday with complaints of chest pain, shortness of breath. The patient was seen by PMD 4 days prior. The patient also complained of right-sided flank pain. He has a stent in the right kidney. He was admitted here 3 weeks ago complaining of shortness of breath. At that time, he had decompensated congestive heart failure. He was treated with IV diuretics. At this time, he does not complain of any lower extremity edema. He does not complain of any dyspnea on exertion, but he complains of chest tightness. In the emergency room, he was found to have blood pressure of 137/69 and heart rate of 122. His initial blood work showed a hemoglobin of 18, BUN of 39, creatinine of 1.7. His calcium was elevated at 10.6. He was thought to be dehydrated. He was admitted. PAST MEDICAL/SURGICAL HISTORY: Morbid obesity, severe hypertension, hypertensive heart disease, chronic atrial fibrillation, nonischemic cardiomyopathy, CHF, nephrolithiasis, right hydronephrosis, right ureteral stent, history of alcohol abuse, history of pancreatitis, chronic pain. FAMILY HISTORY: Noncontributory. SOCIAL HISTORY: Continues to smoke, denies alcohol use, no IV drug abuse. MEDICATIONS AT HOME: Aldactone, Lasix 80 b.i.d., digoxin, Coreg, Eliquis, allopurinol. ALLERGIES: LUZ INHIBITORS. REVIEW OF SYSTEMS: All systems are reviewed as mentioned in the history of presenting illness, rest unremarkable. PHYSICAL EXAMINATION: GENERAL: Obese young male sitting in bed. VITAL SIGNS: Blood pressure 118/69, heart rate 74, respiratory rate 18-20, temperature 98. HEENT: Normocephalic, atraumatic, no pallor, no icterus. NECK: Supple, no JVD. LUNGS: Bilateral equal air entry, bilateral equal air expansion, no rales, no rhonchi. CARDIAC: S1 and S2, regular rate and rhythm, no murmur, no rub. ABDOMEN: Obese, distended, soft, bowel sounds present. EXTREMITIES: No lower extremity edema. INTAKE AND OUTPUT: Not charted. LABORATORY DATA: WBC 9.6, hemoglobin 18, hematocrit 54.5, platelets 226,000. Sodium 137, potassium 4.9, chloride 99, CO2 of 27, BUN 35, creatinine 1.7, glucose 113, calcium 10.6, magnesium 2.4, total protein 8.9, albumin 4.7. Urinalysis: Yellow, slightly cloudy, pH 5.5, specific gravity greater than 1.030, protein 30, blood small, leukocyte esterase small. Urine culture: Gram-positive cocci. CURRENT MEDICATIONS: Dilaudid, Eliquis, Lasix 40 IV daily, Peridium, Xopenex, Zofran, allopurinol, normal saline at 50. ASSESSMENT: 1. Prerenal azotemia/dehydration. 2. Hemodynamically stable. 3. Hypertension, well controlled at this time. 4. Congestive heart failure, compensated. 5. Right flank pain/dysuria. 6. Atrial fibrillation. 7. Morbid obesity. 8. Chronic pain. PLAN: 1. Agree with low-dose IV fluids. 2. Agree with restarting Lasix tomorrow. 3. Renal parameters appear to be at baseline. 4. Follow up urine culture reports. 5. Urology evaluation. 6. Restrict pain medications. Thank you for the courtesy of this consultation. We will follow this patient closely with you. Angelica Don MD
--- NOTE | 2018-11-24 15:55 | PN ---
DATE: 11/24/2018 SUBJECTIVE: The patient is a 37-year-old, seen and examined, lying in bed, complaining of right flank pain, complaining of left flank pain. He also complained of discomfort upon urination, had little hematuria last night, but urine seems to be clear this morning. No chest pain, no shortness of breath. PHYSICAL EXAMINATION: VITAL SIGNS: The patient is afebrile, pulse 73, respirations 18, and blood pressure 156/73. LUNGS: Bilateral fair airflow. No rhonchi or crackle noted. HEART: S1 and S2 audible. ABDOMEN: Soft, obese, nontender, slight right flank discomfort. NEUROLOGIC: He is awake, alert, oriented, able to communicate. Bilateral leg +2 edema. LABORATORY DATA: WBC 8.1, hemoglobin 16, hematocrit 50, and platelets 250. Chemistry; sodium 133, potassium 4.3, chloride 97, CO2 of 27, BUN 39, creatinine 1.7, blood sugar of 99. ASSESSMENT: 1. Left flank pain. 2. History of nephrolithiasis in the past, had stent placed that need to be replaced. Last time, it was attempted to change, but there was paroxysmal atrial fibrillation, he was tachy, so his stent replacement was canceled. 3. History of hypertension. 4. Nonischemic cardiomyopathy. 5. Atrial fibrillation. 6. Acute on chronic renal insufficiency. PLAN: Currently, the patient is on intravenous fluid. We will leave up to splicer apprentice to mange the fluid balance and we will start him on allopurinol 100 mg daily. We will give a followup call to Dr. Summers to arrange for stent replacement on Monday because at this point, he is in best shape from cardiology point of view for anesthesia and stent replacement. Sammy Santiago MD
[2018-11-25] MEDS: HYDROmorphone 1 mg/ml ISec IVP PRN ×6 (02:45→22:23)
[2018-11-25] MEDS: Levalbuterol 0.63 MG/3 ML Inhal Soln UD IH SCH ×3 (07:23→23:31)
--- NOTE | 2018-11-25 08:30 | CP.PCM.PN ---
Subjective - Date & Time of Evaluation Date of Evaluation: 11/25/18 Time of Evaluation: 06:35 - Subjective Subjective: Sleeping but easily awaken alert, denies shortness of breath Reason for consultation and follow up: Cardiac evaluation of congestive heart failure, admitted for abdominal pain, needs renal stent to be changed or removed Seen and examined by me and Dr. Thomson Objective - Vital Signs/Intake and Output Vital Signs (last 24 hours): Temp Pulse Resp BP Pulse Ox 97.6 F 80 20 125/97 H 96 11/25/18 06:00 11/25/18 06:00 11/25/18 06:00 11/25/18 06:00 11/25/18 06:00 Intake and Output: 11/25/18 11/25/18 06:59 18:59 Intake Total 480 Output Total 600 Balance -120 - Medications Medications: Current Medications Allopurinol (Zyloprim) 100 mg PO DAILY [facility] Last Admin: 11/24/18 13:49 Dose: 100 mg Apixaban (Eliquis) 2.5 mg PO BID [facility]; Protocol Last Admin: 11/24/18 18:36 Dose: 2.5 mg Furosemide (Lasix) 40 mg IVP DAILY [facility] Last Admin: 11/24/18 10:34 Dose: 40 mg Hydromorphone HCl (Dilaudid) 1 mg IVP Q4H PRN PRN Reason: Pain, severe (8-10) Last Admin: 11/25/18 06:28 Dose: 1 mg Levalbuterol HCl (Xopenex) 0.63 mg IH Q8 [facility] Last Admin: 11/25/18 07:23 Dose: Not Given Ondansetron HCl (Zofran Inj) 4 mg IVP Q6 PRN PRN Reason: Nausea/Vomiting Last Admin: 11/25/18 06:29 Dose: 4 mg Phenazopyridine HCl (Pyridium) 100 mg PO BID [facility] Last Admin: 11/24/18 18:36 Dose: 100 mg - Labs Labs: 11/24/18 06:30 11/24/18 06:30 PT 13.4 SECONDS (9.4-12.5) H 11/22/18 23:10 INR 1.21 11/22/18 23:10 APTT 40.4 Seconds (26.9-38.3) H 02/21/19 23:10 - Constitutional Appears: Non-toxic, No Acute Distress - Head Exam Head Exam: NORMAL INSPECTION, NORMOCEPHALIC - Eye Exam Eye Exam: Normal appearance Pupil Exam: NORMAL ACCOMODATION - ENT Exam ENT Exam: Mucous Membranes Moist, Normal Exam - Respiratory Exam Respiratory Exam: Decreased Breath Sounds, Clear to Ausculation Bilateral, NORMAL BREATHING PATTERN - Cardiovascular Exam Cardiovascular Exam: Irregular Rhythm, +S1, +S2 Additional comments: Telemetry Atrial fib 60's - Extremities Exam Extremities Exam: Full ROM Additional comments: 1-2+ edema - Neurological Exam Neurological Exam: Alert, Awake, Oriented x3 - Psychiatric Exam Psychiatric exam: Normal Affect, Normal Mood - Skin Skin Exam: Dry, Normal Color, Warm Assessment and Plan - Assessment and Plan (Free Text) Assessment: A 38 year old male morbidly obese, who came in to the ER due to abdominal pain. History of hypertension, non ischemic cardiomyopathy, congestive heart failure,diabetes, hyperlipidemia, chronic back pain, nephrolithiasis (unable to do surgery due to morbid obesity) GERD, history of cystoscopy retrograde extraction and insertion and replacement of pig, tail stent, recurrent pancreatitis, chronic atrial fibrillation,on eliquis, history of alcohol abuse. Echo on 04/25/18 showed four chambers dilatation. LVEF 30-35 %, RVSP 51 mmHg, Moderate MR/TR. Chest X ray, no pulmonary congestion. Troponin indeterminate range maybe due to renal insufficiency. Denies chest pain. No evidence of congestive heart failure or acute coronary syndrome. Abdominal pain, flank pain.Dr. Summers is on consult and following up patient from previous admissions. From last admission,attempted to remove/replace renal stent but he was in congestive heart failure and rapid atrial fibrillation. Cleared with moderate risk from cardiac standpoint to undergo procedure. No evidence of heart failure. Controlled rate/Atrial fibrillation. Plan: PRN dilaudid for right flank pain/back pain Heart rate controlled Blood pressure controlled Cardiac status stable Dr. Summers on consult For possible removal/replace of renal stent on Monday Cleared for procedure with moderate risk On Eliquis 2.5 mg BID,Lasix 40 mg daily,Pyridium 100 mg BID Hold Eliquis for now Continue current treatment Continue current medications Will follow up Plan and treatment discussed with Dr. Thomson
[2018-11-25] MEDS: Digoxin 125 mcg (0.125 mg) Tab PO SCH (18:31)
--- NOTE | 2018-11-25 19:27 | PCM.URO ---
Urology Progress Note - Objective Lab Studies: Reviewed (plans :ct and then cysto either 11/26 or 11/27) Lab Results Last 24 Hours: Laboratory Results - last 24 hr 11/24/18 06:30 Hemoglobin A1c 6.0 Intake & Output: Intake & Output 11/25/18 11/25/18 11/26/18 06:59 18:59 06:59 Intake Total 480 Output Total 600 Balance -120 Intake: Oral 480 Output: Urine 600 Urine, Voided 600 Other: # Bowel Movements 0 Vital Signs: Vital Signs - 24 hr 11/24/18 11/24/18 11/25/18 22:00 23:49 01:37 Temperature 97.6 F Pulse Rate 81 73 73 Respiratory 20 Rate Blood Pressure 123/85 O2 Sat by Pulse 94 L Oximetry 11/25/18 11/25/18 11/25/18 05:29 06:00 10:00 Temperature 97.6 F Pulse Rate 65 80 149 H Respiratory 20 Rate Blood Pressure 125/97 H O2 Sat by Pulse 96 Oximetry 11/25/18 10:32 Temperature Pulse Rate Respiratory Rate Blood Pressure 113/75 O2 Sat by Pulse Oximetry
--- NOTE | 2018-11-25 20:27 | PN ---
DATE: 11/25/2018 SUBJECTIVE: The patient is seen sitting in bed. He complains of severe abdominal pain. He complains of nausea. He complains of diarrhea times five to six loose bowel movements this morning. He denies any urinary complaints at this time. He denies any chest pain. He denies any shortness of breath. PHYSICAL EXAMINATION: GENERAL: Obese young male sitting in bed. VITAL SIGNS: Blood pressure 113/75, heart rate 80, respiratory rate 20, and temperature 97.6. HEENT: Normocephalic and atraumatic. Positive pallor. NECK: Supple. No JVD. LUNGS: Bilateral equal air entry, bilateral equal expansion. No rales. CARDIAC: S1 and S2, regular rate and rhythm. No murmur. No rub. ABDOMEN: Obese, distended, soft, and nontender. Bowel sounds present. EXTREMITIES: No lower extremity edema. LABORATORY DATA: WBC 8.1, hemoglobin 16.8, hematocrit 50.8, and platelets 215. Sodium 133, potassium 4.3, chloride 97, CO2 of 27, BUN 39, creatinine 1.7, glucose 99, A1c is 6, calcium 9.7, phosphorus 4.6, magnesium 2.2, and albumin 4.2. CURRENT MEDICATIONS: Dilaudid, Eliquis, Lasix 40 IV daily, Pyridium, Xopenex, Zofran, and allopurinol. ASSESSMENT: 1. Chest pain/shortness of breath? secondary to atrial fibrillation with rapid ventricular rate. 2. Prerenal azotemia/dehydration. 3. Underlying chronic kidney disease stage III. 4. Hypertension, currently low blood pressure. 5. History of atrial fibrillation. 6. Morbid obesity. PLAN: 1. Restart digoxin 0.125 daily. 2. Continue Lasix 40 IV daily. 3. Cardiology followup. 4. Urology followup. Angelica Don MD
--- NOTE | 2018-11-25 20:31 | PN ---
DATE: 11/25/2018 SUBJECTIVE: The patient does not complain of any chest pain, shortness of breath, or headache. The patient is complaining of pain and he says he has been getting his pain medications when he had a difficult time in sleeping. PHYSICAL EXAMINATION: VITAL SIGNS: Temperature is 97.6, pulse this morning was 149, that is improved to 105. Blood pressure is 113/75 and respirations is 20. GENERAL: The patient is lying in bed, flat, comfortable. HEENT: No oral lesion. Anicteric sclerae. Moist mucosa. NECK: No JVD, adenopathy, or thyromegaly. CARDIOVASCULAR: S1 and S2, regular. No murmurs, rubs, or gallops. LUNGS: Clear to auscultation bilaterally. No wheeze, rales, or rhonchi. ABDOMEN: Bowel sounds are positive, soft, nontender and nondistended. EXTREMITIES: No cyanosis, clubbing or edema. LABORATORY DATA: White count of 8.1 and hemoglobin 16.8. Creatinine is 1.7. ASSESSMENT: 1. Left sided nephrolithiasis. 2. Atrial fibrillation. 3. Morbid obesity with a BMI of 52. 4. Hypertension. 5. Nonischemic cardiomyopathy. 6. Chronic kidney disease, stage III. PLAN: The patient is comfortable. He is going to be on digoxin for his cardiomyopathy. The patient is on Dilaudid for pain, I will renew his pain medication. He is on Lasix daily. He is receiving Pyridium for his pain. He is on allopurinol for history of gout. This is coverage for Dr. Santiago. Singh Gutierrez MD
[2018-11-26] MEDS: HYDROmorphone 1 mg/ml ISec IVP PRN ×6 (02:18→21:34)
[2018-11-26 07:04] LABS: BASO # 0.01 K/mm3 (0.0-2.0); BASO % 0.1 % (0.0-3.0); EOS # 0.1 (0.0-0.7); EOS % 0.9 % (1.5-5.0); LYMPH # 2.5 (1.2-3.4); LYMPH % 33.6 % (22.0-35.0); MEAN CELL VOLUME 93.2 fl (80.0-105.0); MEAN CORPUSCULAR HEMOGLOBIN 30.2 pg (25.0-35.0); MEAN CORPUSCULAR HGB CONC 32.5 g/dl (31.0-37.0); MEAN PLATELET VOLUME 10.6 fl (7.0-11.0); MONO # 0.9 (0.1-0.6); MONO % 12.4 % (1.0-6.0); RBC 5.29 10^6/uL (3.5-6.1); RED CELL DISTRIBUTION WIDTH 16.7 % (11.5-14.5); WHITE BLOOD COUNT 7.4 10^3/uL (4.5-11.0)
--- NOTE | 2018-11-26 07:14 | CP.PCM.PN ---
Subjective - Date & Time of Evaluation Date of Evaluation: 11/26/18 Time of Evaluation: 06:10 - Subjective Subjective: Awake, alert, denies shortness of breath Reason for consultation and follow up: Cardiac evaluation of congestive heart failure, admitted for abdominal pain, needs renal stent to be changed or removed Seen and examined by me and Dr. Thomson Objective - Vital Signs/Intake and Output Vital Signs (last 24 hours): Temp Pulse Resp BP Pulse Ox 98.4 F 69 18 116/82 94 L 11/25/18 20:13 11/25/18 20:13 11/25/18 20:13 11/25/18 20:13 11/25/18 20:13 Intake and Output: 11/26/18 11/26/18 06:59 18:59 Intake Total 900 Output Total 600 Balance 300 - Medications Medications: Current Medications Allopurinol (Zyloprim) 100 mg PO DAILY [facility] Last Admin: 11/25/18 10:32 Dose: 100 mg Apixaban (Eliquis) 2.5 mg PO BID [facility]; Protocol Last Admin: 11/24/18 18:36 Dose: 2.5 mg Digoxin (Digoxin) 0.125 mg PO 1400 [facility] Last Admin: 11/25/18 18:31 Dose: 0.125 mg Furosemide (Lasix) 40 mg IVP DAILY [facility] Last Admin: 11/25/18 10:32 Dose: 40 mg Hydromorphone HCl (Dilaudid) 1 mg IVP Q4H PRN PRN Reason: Pain, severe (8-10) Last Admin: 11/26/18 06:00 Dose: 1 mg Levalbuterol HCl (Xopenex) 0.63 mg IH Q8 [facility] Last Admin: 11/25/18 23:31 Dose: Not Given Ondansetron HCl (Zofran Inj) 4 mg IVP Q6 PRN PRN Reason: Nausea/Vomiting Last Admin: 11/26/18 02:26 Dose: 4 mg Phenazopyridine HCl (Pyridium) 100 mg PO BID [facility] Last Admin: 11/25/18 18:32 Dose: 100 mg - Labs Labs: 11/24/18 06:30 11/24/18 06:30 PT 13.4 SECONDS (9.4-12.5) H 11/22/18 23:10 INR 1.21 11/22/18 23:10 APTT 40.4 Seconds (26.9-38.3) H 11/22/18 23:10 - Constitutional Appears: Non-toxic, No Acute Distress - Head Exam Head Exam: NORMAL INSPECTION, NORMOCEPHALIC - Eye Exam Eye Exam: Normal appearance Pupil Exam: NORMAL ACCOMODATION - ENT Exam ENT Exam: Mucous Membranes Moist, Normal Exam - Respiratory Exam Respiratory Exam: Decreased Breath Sounds, Clear to Ausculation Bilateral, NORMAL BREATHING PATTERN - Cardiovascular Exam Cardiovascular Exam: +S1, +S2 - GI/Abdominal Exam GI & Abdominal Exam: Soft, Normal Bowel Sounds - Extremities Exam Extremities Exam: Full ROM Additional comments: trace edema - Neurological Exam Neurological Exam: Alert, Awake, Oriented x3 - Psychiatric Exam Psychiatric exam: Normal Affect, Normal Mood - Skin Skin Exam: Dry, Normal Color, Warm Assessment and Plan - Assessment and Plan (Free Text) Assessment: A 38 year old male morbidly obese, who came in to the ER due to abdominal pain. History of hypertension, non ischemic cardiomyopathy, congestive heart failure,diabetes, hyperlipidemia, chronic back pain, nephrolithiasis (unable to do surgery due to morbid obesity) GERD, history of cystoscopy retrograde extraction and insertion and replacement of pig, tail stent, recurrent pancreatitis, chronic atrial fibrillation,on eliquis, history of alcohol abuse. Echo on 04/25/18 showed four chambers dilatation. LVEF 30-35 %, RVSP 51 mmHg, Moderate MR/TR. Chest X ray, no pulmonary congestion. Troponin indeterminate range maybe due to renal insufficiency. Denies chest pain. No evidence of congestive heart failure or acute coronary syndrome. Abdominal pain, flank pain.Dr. Summers is on consult and following up patient from previous admissions. From last admission,attempted to remove/replace renal stent but he was in congestive heart failure and rapid atrial fibrillation. Cleared with moderate risk from cardiac standpoint to undergo procedure. No evidence of heart failure. Controlled rate/Atrial fibrillation. For possible removal/replace of renal stent on today by Dr. Summers. Plan: For possible removal/replace of renal stent on today NPO after breakfast PRN dilaudid for right flank pain/back pain Heart rate controlled Blood pressure controlled Cardiac status stable Dr. Summers on consult Cleared for procedure with moderate risk On Eliquis 2.5 mg BID,Lasix 40 mg daily,Pyridium 100 mg BID Held Eliquis yesterday and today Continue current treatment Continue current medications Will follow up post procedure Plan and treatment discussed with Dr. Thomson
[2018-11-26] MEDS: Levalbuterol 0.63 MG/3 ML Inhal Soln UD IH SCH ×3 (08:41→23:30)
[2018-11-26 09:11] LABS: CALCIUM 9.6 mg/dL (8.4-10.5)
[2018-11-26] MEDS: Digoxin 125 mcg (0.125 mg) Tab PO SCH (14:13)
--- NOTE | 2018-11-26 15:53 | PN ---
DATE: 11/26/2018 SUBJECTIVE: The patient is 37 years old, seen and examined. Still complain of flank pain. Complained of poor oral intake. Decreased appetite. PHYSICAL EXAMINATION: VITAL SIGNS: Afebrile. Pulse 56, respirations 19, blood pressure 118/91. LUNGS: Bilateral fair airflow. No rhonchi or crackle. HEART: S1, S2 audible ABDOMEN: Soft, nontender. No rebound. No guarding. LABORATORY DATA: Hemoglobin is 16, hematocrit 49, platelet of 236. Chemistry; sodium 134, potassium 3.9, chloride 97, CO2 of 23, BUN 29, creatinine 1.6, blood sugar of 80. Urine culture positive for Gram-positive cocci, but colony count is less than 10,000. ASSESSMENT AND PLAN: 1. Flank pain, status post ureteral catheter placement. Needs the replacement of catheter. 2. Congestive heart failure. 3. Chronic obstructive pulmonary disease. 4. History of recurrent pancreatitis. 5. Status post cholecystitis. 6. Paroxysmal atrial fibrillation. Currently, the patient is on Lasix 40 IV. He is n.p.o. He is going to be taken as per Dr. Summers's note. He will be taken for cystoscopy and stent replacement. After that, we will make discharge. Sammy Santiago MD
--- NOTE | 2018-11-26 18:24 | PCM.URO ---
Urology Progress Note - Subjective Abdominal Pain: Yes (cysto 11/27) - Objective Lab Results Last 24 Hours: Laboratory Results - last 24 hr 11/26/18 11/26/18 06:00 06:00 WBC 7.4 RBC 5.29 Hgb 16.0 Hct 49.3 MCV 93.2 MCH 30.2 MCHC 32.5 RDW 16.7 H Plt Count 236 MPV 10.6 Neut % (Auto) 53.0 Lymph % (Auto) 33.6 Lyman % (Auto) 12.4 H Eos % (Auto) 0.9 L Baso % (Auto) 0.1 Lymph # (Auto) 2.5 Lyman # (Auto) 0.9 H Eos # (Auto) 0.1 Baso # (Auto) 0.01 Absolute Neuts (auto) 3.93 Sodium 134 Potassium 3.8 Chloride 97 L Carbon Dioxide 26 Anion Gap 15 BUN 29 H Creatinine 1.6 H Est GFR ( Amer) 58 Est GFR (Non-Af Amer) 48 Random Glucose 80 Calcium 9.6 Phosphorus 3.8 Magnesium 2.0 Intake & Output: Intake & Output 11/25/18 11/26/18 11/26/18 18:59 06:59 18:59 Intake Total 900 Output Total 600 Balance 300 Intake: Oral 900 Output: Urine 600 Urine, Voided 600 Other: # Bowel Movements 0 Vital Signs: Vital Signs - 24 hr 11/25/18 11/26/18 11/26/18 20:13 08:24 10:08 Temperature 98.4 F 98 F Pulse Rate 69 56 L Respiratory 18 19 Rate Blood Pressure 116/82 93/64 L 118/91 H O2 Sat by Pulse 94 L 100 Oximetry 11/26/18 17:01 Temperature 97.4 F L Pulse Rate 60 Respiratory 18 Rate Blood Pressure 98/66 L O2 Sat by Pulse 100 Oximetry
--- NOTE | 2018-11-26 19:48 | PN ---
DATE: 11/26/2018 SUBJECTIVE: The patient is seen lying in bed. He is awake. He is alert. He is complaining of not feeling well. He reports he is having severe abdominal pain. He also reports that he is having diarrhea. He has moved his bowels three times today. PHYSICAL EXAMINATION: GENERAL: Morbidly obese young male lying in bed. VITAL SIGNS: Blood pressure 118/91, heart rate 56, respiratory rate 19, and temperature 98. HEENT: Normocephalic and atraumatic. Positive pallor. NECK: Supple. No JVD. LUNGS: Bilateral equal air entry, bilateral equal expansion. CARDIAC: S1 and S2. Regular rate and rhythm. No murmur. No rub. ABDOMEN: Obese, distended, soft, and nontender. Bowel sounds present. EXTREMITIES: No lower extremity edema. INTAKE AND OUTPUT: Not charted. LABORATORY DATA: WBC 7.4, hemoglobin 16, hematocrit 49, and platelets 236. Sodium 134, potassium 3.8, chloride 97, CO2 of 26, BUN 29, creatinine 1.6, glucose 80, calcium 9.6, phosphorus 3.8, and magnesium 2. CURRENT MEDICATIONS: Digoxin, Dilaudid, Eliquis, Lasix 40 IV daily, Pyridium 100 b.i.d., Xopenex, Zofran, and allopurinol. ASSESSMENT: 1. Mild prerenal azotemia. 2. Underlying chronic kidney disease stage III. 3. Right flank pain, right ureteral stent. 4. Abdominal pain with diarrhea. 5. Relative hypotension. 6. Atrial fibrillation. 7. History of congestive heart failure, currently compensated. PLAN: 1. Push p.o. fluids. 2. Continue Lasix 40 IV daily. 3. Continue digoxin 0.125 daily. 4. Right ureteral stent change tomorrow? 5. Restrict pain meds. Angelica Don MD
--- NOTE | 2018-11-26 20:33 | CON ---
DATE: 11/25/2018 UROLOGY CONSULTATION REASON FOR CONSULTATION: Renal colic and stenting. HISTORY OF PRESENT ILLNESS: A very pleasant gentleman, I know quite well. He had previously obtained a CAT scan with Dr. Love. He reports that whenever he takes the stent out, he has pain from stones. He also reports a lot of stent pain now. He has a lot of medical problems including CHF and various medical failure issues. He is in now for right flank pain, , and CHF. Procedure notes on the chart reveal that he has been seen by Cardiology and Medical consultation and he is now cleared for a procedure to have the stent changed. Since I have the patient, I would just like to remove the patient, give him a voiding trial and a stent holiday so to speak, and if he needs a stent put back in I will put it back in, so we would think that would be better for him. Go see the plan list below, I am going to at least do a new CAT scan before I do anything further. PAST MEDICAL/SURGICAL HISTORY: As listed on the chart. Otherwise unremarkable. REVIEW OF SYSTEM: As listed above, otherwise noncontributory. MEDICATIONS: See the chart. ALLERGIES: SEE THE CHART. PHYSICAL EXAMINATION: GENERAL: Well nourished male with body habitus noted. Currently in no apparent distress, resting comfortably. VITAL SIGNS: Within normal limits, included in the chart. ABDOMEN: Overall soft. GENITOURINARY: Normal phallus. DIAGNOSES: 1. History of urolithiasis and hydronephrosis. 2. Hematuria. 3. Flank pain. 4. Stent pain. ASSESSMENT: In summary, a very pleasant gentleman who did well this week. He has multiple medical issues. From a urology standpoint, we are going to do a CT scan, a fresh new CT scan now and then reevaluate the system. Perhaps the patient will benefit best from a cystoscopy stent removal, perhaps will benefit best from a stent change. So far, the patient has been requesting a stent change. So, we are going to most likely do that. But in the meantime, the plan for him is as follows; 1. The patient can eat breakfast through now and till tomorrow. 2. He is cleared medically for his procedure, which is good news. 3. And we are going to get a CT scan and then make further recommendations and plans. But likely we are going to try to put him on the schedule for 11/26/2018. We will continue to follow along. Thank you for the urology consultation. Juan Ramon Summers MD
[2018-11-27] MEDS: HYDROmorphone 1 mg/ml ISec IVP PRN ×6 (01:25→21:47)
[2018-11-27] MEDS: Levalbuterol 0.63 MG/3 ML Inhal Soln UD IH SCH ×2 (07:38→19:15)
[2018-11-27] MEDS ORDERED: cefTRIAXone (Rocephin) 1 gm Inj ONE ×2 (07:39→07:52)
[2018-11-27] MEDS ORDERED: Iohexol 240 (50 ml) ONE (07:39)
--- NOTE | 2018-11-27 07:47 | CP.PCM.PN ---
Subjective - Date & Time of Evaluation Date of Evaluation: 11/27/18 Time of Evaluation: 06:45 - Subjective Subjective: Sitting in bed, awake, alert, denies shortness of breath, feels frustrated Reason for consultation and follow up: Cardiac evaluation of congestive heart failure, admitted for abdominal pain, needs renal stent to be changed or removed Seen and examined by me and Dr. Thomson Objective - Vital Signs/Intake and Output Vital Signs (last 24 hours): Temp Pulse Resp BP Pulse Ox 97.7 F 82 18 110/89 91 L 11/27/18 06:57 11/27/18 06:57 11/27/18 06:57 11/27/18 06:57 11/27/18 06:57 Intake and Output: 11/27/18 11/27/18 06:59 18:59 Intake Total 700 Output Total 1100 Balance -400 - Medications Medications: Current Medications Allopurinol (Zyloprim) 100 mg PO DAILY [facility] Last Admin: 11/26/18 10:01 Dose: 100 mg Apixaban (Eliquis) 2.5 mg PO BID [facility]; Protocol Last Admin: 11/24/18 18:36 Dose: 2.5 mg Digoxin (Digoxin) 0.125 mg PO 1400 [facility] Last Admin: 11/26/18 14:13 Dose: 0.125 mg Furosemide (Lasix) 40 mg IVP DAILY [facility] Last Admin: 11/26/18 10:08 Dose: 40 mg Hydromorphone HCl (Dilaudid) 1 mg IVP Q4H PRN PRN Reason: Pain, severe (8-10) Last Admin: 11/27/18 05:26 Dose: 1 mg Levalbuterol HCl (Xopenex) 0.63 mg IH Q8 [facility] Last Admin: 11/27/18 07:38 Dose: Not Given Ondansetron HCl (Zofran Inj) 4 mg IVP Q6 PRN PRN Reason: Nausea/Vomiting Last Admin: 11/27/18 01:26 Dose: 4 mg Phenazopyridine HCl (Pyridium) 100 mg PO BID [facility] Last Admin: 11/26/18 17:41 Dose: 100 mg - Labs Labs: 11/26/18 06:00 11/26/18 06:00 PT 13.4 SECONDS (9.4-12.5) H 11/22/18 23:10 INR 1.21 11/22/18 23:10 APTT 40.4 Seconds (26.9-38.3) H 11/22/18 23:10 - Constitutional Appears: Non-toxic, No Acute Distress - Head Exam Head Exam: NORMAL INSPECTION, NORMOCEPHALIC - Eye Exam Eye Exam: Normal appearance Pupil Exam: NORMAL ACCOMODATION - ENT Exam ENT Exam: Mucous Membranes Moist, Normal Exam - Respiratory Exam Respiratory Exam: Decreased Breath Sounds, Clear to Ausculation Bilateral, NORMAL BREATHING PATTERN - Cardiovascular Exam Cardiovascular Exam: +S1, +S2 - GI/Abdominal Exam GI & Abdominal Exam: Soft, Normal Bowel Sounds - Extremities Exam Extremities Exam: Full ROM Additional comments: trace edema - Neurological Exam Neurological Exam: Alert, Awake, Oriented x3 - Psychiatric Exam Psychiatric exam: Normal Affect, Normal Mood - Skin Skin Exam: Dry, Normal Color, Warm Assessment and Plan - Assessment and Plan (Free Text) Assessment: A 38 year old male morbidly obese, who came in to the ER due to abdominal pain. History of hypertension, non ischemic cardiomyopathy, congestive heart failure,diabetes, hyperlipidemia, chronic back pain, nephrolithiasis (unable to do surgery due to morbid obesity) GERD, history of cystoscopy retrograde extraction and insertion and replacement of pig, tail stent, recurrent pancreatitis, chronic atrial fibrillation,on eliquis, history of alcohol abuse. Echo on 04/25/18 showed four chambers dilatation. LVEF 30-35 %, RVSP 51 mmHg, Mo derate MR/TR. Chest X ray, no pulmonary congestion. Troponin indeterminate range maybe due to renal insufficiency. Denies chest pain. No evidence of congestive heart failure or acute coronary syndrome. Abdominal pain, flank pain.Dr. Summers is on consult and following up patient from previous admissions. From last admission,attempted to remove/replace renal stent but he was in congestive heart failure and rapid atrial fibrillation. Cleared with moderate risk from cardiac standpoint to undergo procedure. No evidence of heart failure. Controlled rate/Atrial fibrillation.Held Eliquis for the renal stent procedure. For possible removal/replace of renal stent yesterday but rescheduled today after CT scan of abdomen and pelvis. Plan: For possible removal/replace of renal stent today NPO after breakfast CT of abdomen and pelvis done pending results PRN dilaudid for right flank pain/back pain Heart rate controlled Blood pressure controlled Cardiac status stable Dr. Summers on consult Cleared for procedure with moderate risk On Eliquis 2.5 mg BID,Lasix 40 mg daily,Pyridium 100 mg BID Eliquis held since Monday, will resume after renal procedure done Continue current treatment Continue current medications Will follow up post procedure Plan and treatment discussed with Dr. Thomson
--- NOTE | 2018-11-27 08:06 | PCM.URO ---
Urology Progress Note - Objective Lab Studies: Reviewed (alongpt needs inpatient work up: renal scan with lasix, nuclear medicine will follow along full notes dictated) Lab Results Last 24 Hours: Laboratory Results - last 24 hr 11/26/18 06:00 Sodium 134 Potassium 3.8 Chloride 97 L Carbon Dioxide 26 Anion Gap 15 BUN 29 H Creatinine 1.6 H Est GFR ( Amer) 58 Est GFR (Non-Af Amer) 48 Random Glucose 80 Calcium 9.6 Phosphorus 3.8 Magnesium 2.0 Intake & Output: Intake & Output 11/26/18 11/27/18 11/27/18 18:59 06:59 18:59 Intake Total 700 Output Total 1100 Balance -400 Intake: Oral 700 Output: Urine 1100 Urine, Voided 1100 Other: # Bowel Movements 1 Vital Signs: Vital Signs - 24 hr 11/26/18 11/26/18 11/26/18 08:24 10:08 17:01 Temperature 98 F 97.4 F L Pulse Rate 56 L 60 Respiratory 19 18 Rate Blood Pressure 93/64 L 118/91 H 98/66 L O2 Sat by Pulse 100 100 Oximetry 11/27/18 11/27/18 06:00 06:57 Temperature 97.9 F 97.7 F Pulse Rate 52 L 82 Respiratory 18 18 Rate Blood Pressure 129/77 110/89 O2 Sat by Pulse 95 91 L Oximetry
[2018-11-27] MEDS ORDERED: Propofol 10 mg/ml Inj (20 ML) ONE (08:07)
[2018-11-27] MEDS ORDERED: Etomidate 20 mg/10ml Inj IV ONE (08:08)
[2018-11-27] MEDS ORDERED: Sevoflurane - Inhalation Anesthetic Liq (250 ml) ONE (08:08)
[2018-11-27] MEDS ORDERED: Esmolol 100 mg/10ml Inj IV ONE (08:25)
[2018-11-27] MEDS: Digoxin 125 mcg (0.125 mg) Tab PO SCH (13:58)
--- NOTE | 2018-11-27 15:44 | CT ---
Date of service: 11/26/2018 PROCEDURE: CT Abdomen and Pelvis without intravenous contrast HISTORY: urplithiasis COMPARISON: Abdomen pelvis CT without contrast 07/22/2018. TECHNIQUE: Helical CT of the abdomen and pelvis was performed without oral or intravenous contrast as per referring physician request. Coronal and sagittal reformats were generated.. Contrast dose: None Radiation dose: Total exam DLP = 1621.14 mGy-cm. This CT exam was performed using one or more of the following dose reduction techniques: Automated exposure control, adjustment of the mA and/or kV according to patient size, and/or use of iterative reconstruction technique. FINDINGS: LOWER THORAX: Cardiac silhouette appears borderline enlarged. LIVER: Unremarkable. No gross lesion or ductal dilatation. GALLBLADDER AND BILE DUCTS: Prior cholecystectomy noted. PANCREAS: Unremarkable. No gross lesion or ductal dilatation. SPLEEN: Unremarkable. ADRENALS: Unremarkable. No mass. KIDNEYS AND URETERS: A double-J left ureteral stent is again identified in position with mild left hydronephrosis identified. No prominent radiodense urolithiasis is appreciated within the left kidney or left ureter at the urinary bladder is unremarkable exclusive of the distal coil of the left ureteral stent. A 2.4 cm cyst is seen at the left upper pole kidney once again with trace left perinephric changes reiterated. The right kidney is stable appearing and unremarkable with no radiodense urolithiasis associated or obstructive uropathy. No large mass apparent. VASCULATURE: Unremarkable. No aortic aneurysm. No aortic atherosclerotic calcification or mural plaque present. BOWEL: No bowel obstruction identified. Lack oral contrast limits evaluation of the: Particularly the sigmoid colon which is mildly distended with gas. Diverticular changes are associated. The henderson are poorly evaluated due to lack of adequate distention and retained fecal material. APPENDIX: Retrocecal nonacute appendix noted. PERITONEUM: Unremarkable. No free fluid. No free air. LYMPH NODES: Unremarkable. No enlarged lymph nodes. BLADDER: Above double-J left ureteral stent, exam through the urinary bladder is otherwise unremarkable. REPRODUCTIVE: Unremarkable. BONES: Grade 1 spondylolisthesis L4 slightly posterior to L5 with accompanying gross degenerative disease manifest by endplate cortical sclerosis, spondylosis and vacuum disc changes here. OTHER FINDINGS: None. IMPRESSION: Double-J left ureteral stent reiterated with mild left hydronephrosis present. No radiodense urolithiasis bilaterally as well as urinary bladder. Upper pole left renal cyst. Unremarkable right kidney as imaged. Sigmoid diverticulosis without diverticulitis. Prior cholecystectomy.
--- NOTE | 2018-11-27 16:00 | PN ---
DATE: 11/27/2018 SUBJECTIVE: The patient is 37-year-old, seen and examined, went for cystoscopy. Cystoscopy result is not available yet. PHYSICAL EXAMINATION GENERAL: He is awake, alert, oriented, communicative. VITAL SIGNS: He is afebrile. Pulse 93, respirations 15, and blood pressure 126/86. LUNGS: Bilateral fair airflow. No rhonchi or crackle. HEART: S1 and S2 audible. ABDOMEN: Soft and nontender. No rebound. No guarding. NEUROLOGICAL: The patient is awake, alert, able to communicate. ASSESSMENT: 1. History of nephrolithiasis. 2. Non-ischemic cardiomyopathy. 3. . 4. History of recurrent pancreatis. 5. Status post cholecystectomy. 6. Renal insufficiency, acute on chronic. PLAN: Currently the patient is on digoxin. Eliquis is on hold for now. Continue him on Lasix. Discontinue Pyridium. Continue nebulizer treatment. We will discuss with Dr. Florez, and make further management plan. Sammy Santiago MD
[2018-11-28] MEDS: HYDROmorphone 1 mg/ml ISec IVP PRN ×6 (02:10→21:52)
[2018-11-28 07:09] LABS: HEMOGLOBIN 16.1 g/dL (14.0-18.0); MEAN CORPUSCULAR HEMOGLOBIN 30.4 pg (25.0-35.0); MEAN CORPUSCULAR HGB CONC 32.7 g/dl (31.0-37.0); MEAN PLATELET VOLUME 10.6 fl (7.0-11.0); RBC 5.29 10^6/uL (3.5-6.1); RED CELL DISTRIBUTION WIDTH 16.3 % (11.5-14.5); WHITE BLOOD COUNT 7.7 10^3/uL (4.5-11.0)
--- NOTE | 2018-11-28 07:11 | CP.PCM.PN ---
Subjective - Date & Time of Evaluation Date of Evaluation: 11/28/18 Time of Evaluation: 06:45 - Subjective Subjective: Lying in bed, awake, alert, denies shortness of breath, some abdominal discomfort Reason for consultation and follow up: Cardiac evaluation of congestive heart failure, admitted for abdominal pain, status post cystoscopy and removal of renal pigtail stent Seen and examined by me and Dr. Thomson Objective - Vital Signs/Intake and Output Vital Signs (last 24 hours): Temp Pulse Resp BP Pulse Ox 97.8 F 52 L 18 122/70 96 11/27/18 17:21 11/27/18 17:21 11/27/18 17:21 11/27/18 17:21 11/27/18 17:21 Intake and Output: 11/28/18 11/28/18 06:59 18:59 Intake Total 960 Output Total 1700 Balance -740 - Medications Medications: Current Medications Allopurinol (Zyloprim) 100 mg PO DAILY [facility] Last Admin: 11/27/18 10:20 Dose: 100 mg Apixaban (Eliquis) 2.5 mg PO BID [facility]; Protocol Last Admin: 11/24/18 18:36 Dose: 2.5 mg Digoxin (Digoxin) 0.125 mg PO 1400 [facility] Last Admin: 11/27/18 13:58 Dose: 0.125 mg Furosemide (Lasix) 40 mg IVP DAILY [facility] Last Admin: 11/27/18 10:21 Dose: 40 mg Hydromorphone HCl (Dilaudid) 1 mg IVP Q4H PRN PRN Reason: Pain, severe (8-10) Last Admin: 11/28/18 06:02 Dose: 1 mg Levalbuterol HCl (Xopenex) 0.63 mg IH Q8 [facility] Last Admin: 11/28/18 00:00 Dose: Not Given Ondansetron HCl (Zofran Inj) 4 mg IVP Q6 PRN PRN Reason: Nausea/Vomiting Last Admin: 11/28/18 06:02 Dose: 4 mg Ondansetron HCl (Zofran Inj) 4 mg IVP ONCE PRN PRN Reason: Nausea/Vomiting - Labs Labs: 11/26/18 06:00 11/26/18 06:00 PT 13.4 SECONDS (9.4-12.5) H 11/22/18 23:10 INR 1.21 11/22/18 23:10 APTT 40.4 Seconds (26.9-38.3) H 11/22/18 23:10 - Constitutional Appears: Non-toxic, No Acute Distress - Head Exam Head Exam: NORMAL INSPECTION, NORMOCEPHALIC - Eye Exam Eye Exam: Normal appearance Pupil Exam: NORMAL ACCOMODATION - ENT Exam ENT Exam: Mucous Membranes Moist, Normal Exam - Respiratory Exam Respiratory Exam: Decreased Breath Sounds, Clear to Ausculation Bilateral, NORMAL BREATHING PATTERN - Cardiovascular Exam Cardiovascular Exam: +S1, +S2 - GI/Abdominal Exam GI & Abdominal Exam: Soft, Normal Bowel Sounds - Extremities Exam Extremities Exam: Full ROM, Normal Capillary Refill - Neurological Exam Neurological Exam: Alert, Awake, Oriented x3 - Psychiatric Exam Psychiatric exam: Normal Affect, Normal Mood - Skin Skin Exam: Dry, Normal Color, Warm Assessment and Plan - Assessment and Plan (Free Text) Assessment: A 38 year old male morbidly obese, who came in to the ER due to abdominal pain. History of hypertension, non ischemic cardiomyopathy, congestive heart failure,diabetes, hyperlipidemia, chronic back pain, nephrolithiasis (unable to do surgery due to morbid obesity) GERD, history of cystoscopy retrograde extraction and insertion and replacement of pig, tail stent, recurrent pancreatitis, chronic atrial fibrillation,on eliquis, history of alcohol abuse. Echo on 04/25/18 showed four chambers dilatation. LVEF 30-35 %, RVSP 51 mmHg, Moderate MR/TR. Chest X ray, no pulmonary congestion. Troponin indeterminate range maybe due to renal insufficiency. Denies chest pain. No evidence of congestive heart failure or acute coronary syndrome. Abdominal pain, flank pain .Dr. Summers is on consult and following up patient from previous admissions. From last admission,attempted to remove/replace renal stent but he was in congestive heart failure and rapid atrial fibrillation. Cleared with moderate risk from cardiac standpoint to undergo procedure. No evidence of heart failure. Controlled rate/Atrial fibrillation.Held Eliquis for the renal stent procedure. CT scan of abdomen and pelvis.showed double J ureteral stent seen, with mild left hydronephrosis, sigmoid diverticulosis without diverticulitis. Status post cystoscopy and removal of pigtail stent yesterday done by Dr. Summers. For renal scan today. Plan: Cardiac status stable Status post removal of pigtail stent yesterday For renal scan today PRN dilaudid for right flank pain/back pain Heart rate controlled Blood pressure controlled Dr. Summers on consult On Eliquis 2.5 mg BID,Lasix 40 mg daily,Digoxin 0.125 mg daily Will resume Eliquis today Continue current treatment Continue current medications Will follow up post procedure Plan and treatment discussed with Dr. Thomson
[2018-11-28] MEDS: Levalbuterol 0.63 MG/3 ML Inhal Soln UD IH SCH ×3 (07:26→20:10)
--- NOTE | 2018-11-28 07:28 | PN ---
DATE: 11/27/2018 SUBJECTIVE: The patient is currently seen just returned from having his pigtail stent removed. The patient still continues to complain of abdominal pain and loose stools. The patient states that he is now better after having had the stent taken out, and he states he is not interested in doing another urological procedure tomorrow. MEDICATIONS: Medication list reviewed. The patient is currently on digoxin, Dilaudid p.r.n., Eliquis is on hold, fentanyl, Lasix, Pyridium, Xopenex, Zofran and Zyloprim. OBJECTIVE INTAKE/OUTPUT: Intake is 700, output is 1100. VITAL SIGNS: Blood pressure is 126/86, temperature 97.7, respiratory rate 15 with a pulse of 93. HEENT: Shows him to be normocephalic, atraumatic. Conjunctivae are pink. Sclerae nonicteric. NECK: Supple. No neck vein distention. CHEST: Clear to auscultation and percussion. No rales, rhonchi or wheezing. CARDIOVASCULAR: Shows a regular rate and rhythm with MR/TR. No S3, no S4, no rub. ABDOMEN: Soft. Moderate obesity. Bowel sounds normal. No point tenderness on palpation. No rebound, no guarding. EXTREMITIES: Show no cyanosis, no clubbing, and no edema. LABORATORY DATA AND IMAGING: CBC; white blood cell count today is 7.4, hemoglobin 16 with a platelet count of 236,000. Chemistry showed normal electrolytes. BUN is down to 29 with a creatinine of 1.6. Baseline BUN is in the mid 20s with a baseline creatinine in the mid 1 range. Last hemoglobin A1c is 6.0%. Calcium, phosphorus, magnesium level are normal. Albumin level is 4.2. Microbiology, urine cultures were negative. ASSESSMENT 1. Mild prerenal azotemia superimposed on chronic kidney disease, stage II/III. This appears to have improved. 2. History of abdominal pain and right flank pain. The patient had his ureteral stent removed perhaps from the right side. 3. Past history of left hydronephrosis with stent. 4. History of cramping abdominal pain with loose stools. According to the nursing staff, the patient has had no diarrhea today. 5. History of hypotension secondary to cardiomyopathy, ejection fraction 28% with valvular heart disease, history of paroxysmal atrial fibrillation. The patient does remain on chronic anticoagulation. 6. History of obesity. PLAN 1. Discussed with the patient. Explained to him that from a renal standpoint, his BUN and creatinine are very close to baseline levels. 2. From my standpoint, the patient may continue diuretics in light of his history of cardiomyopathy and tendency towards CHF and edema. 3. Perhaps GI evaluation for abdominal pain if pain persists and the patient continues to have loose bowel movements and diarrhea. 4. Discussed with staff on 3R. Sean Reich MD
[2018-11-28 07:35] LABS: ALBUMIN 4.4 g/dL (3.0-4.8); ALT/SGPT 12 U/L (7-56); AMYLASE 96 U/L (35-125); AST/SGOT 26 U/L (17-59); BLOOD UREA NITROGEN 33 mg/dL (7-21); GFR NON-AFRICAN AMERICAN 56; LIPASE 184 U/L (23-300)
--- NOTE | 2018-11-28 13:56 | PN ---
DATE: 11/28/2018 UROLOGY PROGRESS NOTE See the history and physical, see the consultation, see the progress notes, and see the operative note from yesterday. The patient is now status post cystoscopy and a stent removal, we removed the left-sided stent. The patient reports he had some blood in the urine (this is within normal limits postop). Otherwise, no major complaints, no fever, no nausea or vomiting. Past medical, surgical is otherwise unchanged. Other consultants notes noted. I spoke with Dr. Thomson this morning and Dr. Don regarding the possibility of restarting the Eliquis. see the plans listed above. PHYSICAL EXAMINATION: GENERAL: A well-nourished male, he is resting comfortably. ABDOMEN: Overall soft, nontender. No real CVA tenderness noted. Remainder of the exam is otherwise unremarkable. DIAGNOSIS: History of urolithiasis. I now have the official reading. See the operative report from yesterday where we reviewed the CT scan ourselves, but there was not an official reading yet. I now have the official reading, there is no stone seen left. So, at this point the diagnosis then is stenting, hematuria, history of stone disease. Currently, there is no evidence of stone. The plan is as follows: We have taken off the stent. We are going to monitor the patient. We are ordering for a renal scan with Lasix. If there is no obstruction, there is no reason for a stent at this point. Even if he does have obstruction, we will entertain the possibility for percutaneous nephrostomy tube. Because there does not seem to be any obvious disease. As seen with the anesthesia note and the surgical record, this patient is at risk for any major procedures. From Urology standpoint, the blood in the urine is normal at this point. We are going to monitor the patient closely. So, the plan for today is follows: 1. Renal scan. 2. Hold off the Eliquis until we decide that the renal scan is nothing that we need to act upon. Further plans will follow. Juan Ramon Summers MD
[2018-11-28] MEDS: Digoxin 125 mcg (0.125 mg) Tab PO SCH (13:59)
--- NOTE | 2018-11-28 14:29 | PN ---
DATE: 11/27/2018 See the operative note and see the consultation notes, progress notes. This is an immediate postop note. The patient is in the recovery room status post cystoscopy and stent removal. Vitals signs are normal limits. See the chart notes from the anesthesiologist. Very difficult type procedure from their end. But from urology's end, we identified the stent and we removed it without difficulty. The vital signs are noted. Physical exam noted. DIAGNOSIS: History of urolithiasis, currently no evidence of disease. ____ status post stent removal and we will how the patient does clinically. We will follow the patient along closely. Juan Ramon Summers MD
--- NOTE | 2018-11-28 18:49 | PN ---
DATE: 11/28/2018 SUBJECTIVE: The patient is seen on his way to the renal scan. He is complaining of flank pain. He denies any chest pain. PHYSICAL EXAMINATION: GENERAL: Morbidly obese young male lying in bed. VITAL SIGNS: Blood pressure 108/82, heart rate 54, respiratory rate 18, temperature 98.5. HEENT: Normocephalic, atraumatic, positive pallor. NECK: Supple, no JVD. LUNGS: Bilateral equal air entry, no rales, rhonchi. CARDIAC: S1, S2, regular rate and rhythm, no murmur, no rub. ABDOMEN: Obese, distended, soft, nontender, bowel sounds present. EXTREMITIES: Trace lower extremity edema. INTAKE AND OUTPUT: 960/1700. LABORATORY DATA: WBC 7.7, hemoglobin 16, hematocrit 49, platelets 166. Sodium 133, potassium 3.9, chloride 96, CO2 of 26, BUN 33, creatinine 1.4, glucose 89, calcium 10, phosphorus 4.2, magnesium 2.1, albumin 4.4. ASSESSMENT: 1. Acute kidney injury/renal azotemia/dehydration, resolved. 2. Chronic pain. 3. Right hydronephrosis, right ureteral stent. 4. Hypertension. 5. Atrial fibrillation. 6. Cardiomyopathy. PLAN: 1. The patient is status post cystoscopy yesterday, removal of the right ureteral stent. 2. Renal scan ordered by Urology to assess for obstruction in the right kidney. 3. Plan is to replace right ureteral stent only if there is obstruction. 4. Discharge planning. Angelica Don MD
--- NOTE | 2018-11-28 22:05 | PN ---
DATE: 11/28/2018 SUBJECTIVE: The patient is 37 years old, seen and examined, was seen in Nuclear Department, getting renal scan, still complaining of pain. He complained of decreased appetite. PHYSICAL EXAMINATION: VITAL SIGNS: He is afebrile, pulse 54, respirations 17, and blood pressure 108/82. LUNGS: Bilateral fair air flow. No rhonchi or crackle. HEART: S1 and S2 audible. ABDOMEN: Soft, obese, and nontender. No rebound. No guarding. NEUROLOGIC: The patient is awake, alert, and communicative. LABORATORY DATA: WBC 7.7, hemoglobin 16, hematocrit 49, and platelet 266. Chemistry; sodium 133, potassium 3.9, chloride 96, CO2 of 26, BUN 33, creatinine 1.4, and blood sugar 89. Urine shows gram negative cocci. He has kidney nuclear scan done, results are pending. However, the CT scan of the abdomen and pelvis does not show any significant hydronephrosis. ASSESSMENT: 1. Flank pain, etiology unclear. 2. Removal of previous ureteric stent. 3. Nonischemic cardiomyopathy. 4. History of hypertension. 5. Intermittent atrial fibrillation. PLAN: We will continue on current medication and followup renal scan, if his kidney does not show any obstruction or hydronephrosis, he might not need stent. We will continue him on allopurinol, nebulizer treatment. He is on Lasix. We will followup the patient in a.m. Sammy Santiago MD
--- NOTE | 2018-11-29 00:03 | OP ---
PROCEDURE DATE: 11/28/2018 UROLOGY OPERATIVE NOTE PREOPERATIVE DIAGNOSES: History of urolithiasis, flank pain, hematuria. POSTOPERATIVE DIAGNOSES: History of urolithiasis, flank pain, hematuria. No evidence of the stone disease currently. PROCEDURES: Cystoscopy and removal of left double-J stent. COMPLICATIONS: There were no complications. BLOOD LOSS: Less than 10 mL. SURGEON: Juan Ramon Summers MD INDICATIONS: See history and physical for further details and consultation. This is a very pleasant 37-year-old gentleman, actually this Monday is 38 years old. Now, multiple issues he has at baseline underlying obesity, cardiac problems, multiple medical problems. From a urology standpoint, he has been living with a stent and pain and discomfort and then it comes away. He has had multiple treatments from Dr. Love, Dr. Summers, Dr. Lange. Today, we are planning to just remove the stent. He said that when it is removed, he will probably be urinating well, but I am not sure that is related to any stone disease. Right now, I have the last documentation that does not show any stones. Now, I did a new CT scan yesterday and not reviewed the official reading at this time of this procedure, but to my eyes, I do not see any stone left over. I did explain to him that there is no hydronephrosis or obstruction in the bladder, but now I was trying to get stent-free as tolerated. We discussed options and he is here now for the above procedure. DESCRIPTION OF PROCEDURE: After obtaining informed consent, the patient was placed on the table. Routine monitors were placed. Risks were explained to the patient. Risk of dying, risk of specifically with his breathing, risk of intubation, risk of staying intubated were all discussed at length. This is a very difficult situation. After discussing all risks and options, the patient agreed to proceed the above procedure. The cystoscope was introduced via urethra. The bladder was inspected and without any strictures identified. The bladder was inspected carefully. No major abnormalities were detected. We inspected very carefully. We identified the left double-J stent, and we removed it. We tried to keep the procedure to a minimum given the anesthesia situation. The patient tolerated the procedure well without complications. ADDENDUM: See the progress note. See the immediate postop note. From a urology standpoint, we will order a renal scan to see if there is any form of obstruction. We will await to get the official reading, but I am fairly sure there is no stone. Further plans will follow. I discussed with the patient if he has voiding difficulty that could be from the bladder or obstruction or neurogenic bladder, multiple components. Definitely, there would not be any bladder tumor and is only 38 years old, so we will see how he does clinically. In the meantime, we will initiate and maintain Flomax. Juan Ramon Summers MD
[2018-11-29] MEDS: Levalbuterol 0.63 MG/3 ML Inhal Soln UD IH SCH ×3 (00:30→15:51)
[2018-11-29] MEDS: HYDROmorphone 1 mg/ml ISec IVP PRN ×5 (02:00→18:30)
[2018-11-29 06:38] LABS: HEMOGLOBIN 15.6 g/dL (14.0-18.0); MEAN CELL VOLUME 92.9 fl (80.0-105.0); MEAN CORPUSCULAR HEMOGLOBIN 30.1 pg (25.0-35.0); MEAN CORPUSCULAR HGB CONC 32.4 g/dl (31.0-37.0); MEAN PLATELET VOLUME 10.8 fl (7.0-11.0); RBC 5.18 10^6/uL (3.5-6.1); RED CELL DISTRIBUTION WIDTH 16.2 % (11.5-14.5); WHITE BLOOD COUNT 6.8 10^3/uL (4.5-11.0)
--- NOTE | 2018-11-29 07:00 | CP.PCM.PN ---
Subjective - Date & Time of Evaluation Date of Evaluation: 11/29/18 Time of Evaluation: 06:55 - Subjective Subjective: Lying in bed, awake, alert, denies shortness of breath, Reason for consultation and follow up: Cardiac evaluation of congestive heart failure, admitted for abdominal pain, status post cystoscopy and removal of renal pigtail stent Seen and examined by me and Dr. Thomson Objective - Vital Signs/Intake and Output Vital Signs (last 24 hours): Temp Pulse Resp BP Pulse Ox 97.5 F L 66 18 105/67 95 11/28/18 18:00 11/28/18 18:00 11/28/18 18:00 11/28/18 18:00 11/28/18 18:00 Intake and Output: 11/28/18 11/29/18 18:59 06:59 Intake Total 850 1280 Output Total 650 1800 Balance 200 -520 - Medications Medications: Current Medications Allopurinol (Zyloprim) 100 mg PO DAILY [facility] Last Admin: 11/28/18 10:20 Dose: 100 mg Apixaban (Eliquis) 2.5 mg PO BID [facility]; Protocol Last Admin: 11/24/18 18:36 Dose: 2.5 mg Digoxin (Digoxin) 0.125 mg PO 1400 [facility] Last Admin: 11/28/18 13:59 Dose: 0.125 mg Furosemide (Lasix) 40 mg IVP DAILY [facility] Last Admin: 11/27/18 10:21 Dose: 40 mg Hydromorphone HCl (Dilaudid) 1 mg IVP Q4H PRN PRN Reason: Pain, severe (8-10) Last Admin: 11/29/18 06:15 Dose: 1 mg Levalbuterol HCl (Xopenex) 0.63 mg IH Q8 [facility] Last Admin: 11/29/18 00:30 Dose: Not Given Ondansetron HCl (Zofran Inj) 4 mg IVP Q6 PRN PRN Reason: Nausea/Vomiting Last Admin: 11/28/18 21:53 Dose: 4 mg Ondansetron HCl (Zofran Inj) 4 mg IVP ONCE PRN PRN Reason: Nausea/Vomiting - Labs Labs: 11/28/18 06:40 11/28/18 06:40 PT 13.4 SECONDS (9.4-12.5) H 11/22/18 23:10 INR 1.21 11/22/18 23:10 APTT 40.4 Seconds (26.9-38.3) H 11/22/18 23:10 - Constitutional Appears: Non-toxic, No Acute Distress - Head Exam Head Exam: NORMAL INSPECTION, NORMOCEPHALIC - Eye Exam Eye Exam: Normal appearance Pupil Exam: NORMAL ACCOMODATION - ENT Exam ENT Exam: Mucous Membranes Moist, Normal Exam - Respiratory Exam Respiratory Exam: Decreased Breath Sounds, Clear to Ausculation Bilateral, NORMAL BREATHING PATTERN - Cardiovascular Exam Cardiovascular Exam: +S1, +S2 - GI/Abdominal Exam GI & Abdominal Exam: Soft, Normal Bowel Sounds - Extremities Exam Extremities Exam: Full ROM, Normal Capillary Refill - Neurological Exam Neurological Exam: Alert, Awake, Oriented x3 - Psychiatric Exam Psychiatric exam: Normal Affect, Normal Mood - Skin Skin Exam: Dry, Normal Color, Warm Assessment and Plan - Assessment and Plan (Free Text) Assessment: A 38 year old male morbidly obese, who came in to the ER due to abdominal pain. History of hypertension, non ischemic cardiomyopathy, congestive heart failure,diabetes, hyperlipidemia, chronic back pain, nephrolithiasis (unable to do surgery due to morbid obesity) GERD, history of cystoscopy retrograde extraction and insertion and replacement of pig, tail stent, recurrent pa ncreatitis, chronic atrial fibrillation,on eliquis, history of alcohol abuse. Echo on 04/25/18 showed four chambers dilatation. LVEF 30-35 %, RVSP 51 mmHg, Moderate MR/TR. Chest X ray, no pulmonary congestion. Troponin indeterminate range maybe due to renal insufficiency. Denies chest pain. No evidence of congestive heart failure or acute coronary syndrome. Abdominal pain, flank pain.Dr. Summers is on consult and following up patient from previous admissions. From last admission,attempted to remove/replace renal stent but he was in congestive heart failure and rapid atrial fibrillation. Cleared with moderate risk from cardiac standpoint to undergo procedure. No evidence of heart failure. Controlled rate/Atrial fibrillation.Held Eliquis for the renal stent procedure. CT scan of abdomen and pelvis.showed double J ureteral stent seen, with mild left hydronephrosis, sigmoid diverticulosis without diverticulitis. Status post cystoscopy and removal of pigtail stent done by Dr. Summers. Renal scan done awaiting result. Plan: Renal scan done yesterday awaiting result. Cardiac status stable Status post removal of pigtail stent Heart rate controlled Blood pressure controlled Dr. Summers on consult On Eliquis 2.5 mg BID, (on hold)Lasix 40 mg daily,Digoxin 0.125 mg daily Will resume Eliquis as soon as renal work up completed Continue current treatment Continue current medications Will follow up Plan and treatment discussed with Dr. Thomson
[2018-11-29 07:10] LABS: ALB/GLOB RATIO 1.1 (1.1-1.8); ALBUMIN 4.2 g/dL (3.0-4.8); ALT/SGPT 15 U/L (7-56); AST/SGOT 20 U/L (17-59); BLOOD UREA NITROGEN 34 mg/dL (7-21); GFR NON-AFRICAN AMERICAN 56
[2018-11-29] MEDS: Digoxin 125 mcg (0.125 mg) Tab PO SCH (13:44)
[2018-11-29 13:45] VITALS: PULSE 66
--- NOTE | 2018-11-29 14:00 | NM ---
Date of service: 11/28/2018 PROCEDURE: Nuclear medicine Renal Scan with Lasix HISTORY: r/o obstruction, exam w/ lasix 20mg IVP during COMPARISON: None available. TECHNIQUE: 12.8 mCi of technetium DTPA was administered intravenously. Sequential flow images of the kidneys were obtained for 90 secs, 3 secs a frame. Perfusion images were performed over 30 mins, 1 min/frame. At 16 min post isotope administration, 20 mg of intravenous Lasix was administered. Finally, delayed images were obtained up to 30 mins post tracer injection. FINDINGS: Limitations: Uptake in the aorta peaks at over 23 sec post isotope administration suspicious for possible extravasation of nuclear isotope agent or otherwise poor injection. There is asymmetric uptake identified in the kidneys. Is extremely poor uptake identified within the left kidney. Peak Time (mins): Peak activity at the right kidney is identified at 6.3 min post isotope administration and 20 min at the left. 1/2 Peak Time (mins): LEFT and RIGHT kidneys: 15.5 and 14.0, respectively. Differential Perfusion: LEFT and RIGHT kidneys: 4.5 and 95.5, respectively. There is no affect on renal function curves by Lasix injection with uptake still increasing after Lasix at the left kidney and excretion rate unchanged at the right essentially. IMPRESSION: 1. Dilated nonobstructed left kidney with extremely poor renal function. 2. Normal right renal function.
--- NOTE | 2018-11-29 15:11 | PN ---
DATE: 11/29/2018 SUBJECTIVE: The patient is 38-year-old, seen and examined, complained of abdominal pain. No nausea or vomiting noted. PHYSICAL EXAMINATION: VITAL SIGNS: He is afebrile, pulse 80, respiration 20, and blood pressure 105/75. LUNGS: bilateral fair airflow. No rhonchi or crackle. HEART: S1 and S2 audible. ABDOMEN: Soft, obese, and nontender. No rebound. No guarding. NEUROLOGIC: The patient is awake and alert, able to communicate. EXTREMITIES: Bilateral leg, no edema. LABORATORY DATA: WBC 6.8, hemoglobin 15.6, hematocrit 48, and platelet of 293. Chemistry; sodium 132, potassium 4.0, chloride is 95, CO2 of 29, BUN 34, and creatinine 1.4. Blood sugar of 98. ASSESSMENT: 1. Flank pain secondary to stent that has been removed. Awaiting kidney scan report. 2. Nonischemic cardiomyopathy. 3. Congestive heart failure, stable. 4. Chronic obstructive pulmonary disease. 5. History of recurrent pancreatitis. 6. Status post cholecystectomy. PLAN: We will continue the patient on current medication. After the renal scan result is available, we will make discharge plan. If there is no sign of obstruction, he does not need stent and will be discharged later on today. However, if he needs stent, then we will restart Eliquis and make arrangement for stent placement. Sammy Santiago MD
[2018-11-29 19:09] VITALS: PULSE 68; RESP 18; O2SAT 94
[2018-11-29 20:13] VITALS: BP 129/90; TEMP 97.4
--- NOTE | 2018-11-29 20:55 | CP.PCM.CON ---
<Vidhi Reddy - Last Filed: 11/29/18 21:05> History of Present Illness - History of Present Illness History of Present Illness: PGY5 Initial GI Consult Gareth Leblanc is a 38M w/ hx of chronic pancreatitis on Pancrease, renal insufficiency, Afib on Eliquis, and nonischemic cardiomyopathy presenting with shortness of breath, for 4 days. Patient was also c/o right flank pain due to h/o kidney stone, he states that he had a stent in one of his kidneys. He was found to have renal stone this admission and renal stents were also removed. Patient notes chronic epigastric pain radiating to RLQ but admits to worsening of baseline pain for the last two days, pain scale 10/10. Endorses daily, oily stool. Denies nausea, vomiting, hematemesis, acid reflux, heartburn, diarrhea, constipation, melena, hematochezia, or unintentional weight loss. Prior colonoscopy 2015 with fair prep with recommend outpatient repeat for which patient has not followed up. Family History- denies stomach cancer, colon cancer Social History- denies tobacco, alcohol, illicit drug use Surgical History- left ureteral stent placement, cholecystectomy, EUS 07/2016(GB sludge/stone, tortuous CBD normal) Past Patient History - Infectious Disease Hx of Infectious Diseases: None - Tetanus Immunizations Tetanus Immunization: Unknown - Past Medical History & Family History Past Medical History?: Yes - Past Social History Smoking Status: Light Smoker < 10 Cigarettes Daily - CARDIAC Hx Cardiac Disorders: Yes (cardiomyopathy) Hx Cardia Arrhythmia: Yes (Afib) Hx Congestive Heart Failure: Yes Hx Pacemaker: No - PULMONARY Hx Respiratory Disorders: Yes Hx Asthma: Yes Hx Chronic Obstructive Pulmonary Disease (COPD): Yes Hx Sleep Apnea: Yes - NEUROLOGICAL Hx Neurological Disorder: No - HEENT Hx HEENT Problems: No - RENAL Hx Chronic Kidney Disease: Yes Hx Kidney Stones: Yes Hx Renal Failure: Yes Other/Comment: renal stent - ENDOCRINE/METABOLIC Hx Endocrine Disorders: Yes Hx Diabetes Mellitus Type 2: Yes (new) - HEMATOLOGICAL/ONCOLOGICAL Hx Blood Transfusions: No Hx Blood Transfusion Reaction: No - INTEGUMENTARY Hx Dermatological Problems: Yes - MUSCULOSKELETAL/RHEUMATOLOGICAL Hx Musculoskeletal Disorders: Yes Hx Back Pain: Yes Hx Falls: No Hx Gout: Yes Hx Unsteady Gait: No - GASTROINTESTINAL Hx Gastrointestinal Disorders: Yes (morbidly obese, abd pain) Hx Diverticulitis: Yes Hx Gall Bladder Disease: Yes Hx Gastroesophageal Reflux: Yes Hx Pancreatitis: Yes (quit drinking since pancreatitis) - GENITOURINARY/GYNECOLOGICAL Hx Genitourinary Disorders: Yes Hx Hematuria: Yes Hx Urinary Tract Infection: Yes Other/Comment: pylonephritis - PSYCHIATRIC Hx Psychophysiologic Disorder: No Hx Emotional Abuse: No Hx Physical Abuse: No Hx Substance Use: No - SURGICAL HISTORY Hx Surgeries: Yes - ANESTHESIA Hx Anesthesia Reactions: No Hx Malignant Hyperthermia: No Meds Allergies/Adverse Reactions: Allergies Allergy/AdvReac Type Severity Reaction Status Date / Time LUZ Inhibitors Allergy Severe ANGIOEDEMA Verified 07/22/18 14:37 Physical Exam - Constitutional Appears: Non-toxic, No Acute Distress - Head Exam Head Exam: ATRAUMATIC, NORMOCEPHALIC - Eye Exam Eye Exam: Normal appearance - ENT Exam ENT Exam: Mucous Membranes Moist, Normal Exam - Neck Exam Neck exam: Positive for: Normal Inspection - Respiratory Exam Respiratory Exam: Clear to Auscultation Bilateral, NORMAL BREATHING PATTERN. absent: Rales, Rhonchi, Wheezes, Respiratory Distress - Cardiovascular Exam Cardiovascular Exam: REGULAR RHYTHM, +S1, +S2 - GI/Abdominal Exam GI & Abdominal Exam: Diminished Bowel Sounds, Distended, Normal Bowel Sounds, Soft, Tenderness (epigastric). absent: Firm, Guarding, Hernia, Organomegaly, Pulsatile Mass, Rigid Additional comments: obese - Extremities Exam Extremities exam: Negative for: joint swelling, pedal edema - Neurological Exam Neurological exam: Alert, Oriented x3 - Psychiatric Exam Psychiatric exam: Normal Affect, Normal Mood - Skin Skin Exam: Dry, Intact, Normal Color, Warm Results - Vital Signs Recent Vital Signs: Last Vital Signs Temp 97.4 F L 11/29/18 20:10 Pulse 68 11/29/18 20:10 Resp 18 11/29/18 20:10 BP 129/90 11/29/18 20:10 Pulse Ox 94 L 11/29/18 20:10 - Labs Result Diagrams: 11/29/18 06:00 11/29/18 06:00 Labs: Laboratory Results - last 24 hr 11/29/18 11/29/18 06:00 06:00 WBC 6.8 RBC 5.18 Hgb 15.6 Hct 48.1 MCV 92.9 MCH 30.1 MCHC 32.4 RDW 16.2 H Plt Count 293 MPV 10.8 Sodium 132 Potassium 4.0 Chloride 95 L Carbon Dioxide 29 Anion Gap 12 BUN 34 H Creatinine 1.4 Est GFR ( Amer) > 60 Est GFR (Non-Af Amer) 56 Random Glucose 98 Calcium 10.0 Total Bilirubin 0.5 AST 20 ALT 15 Alkaline Phosphatase 85 Total Protein 8.0 Albumin 4.2 Globulin 3.9 Albumin/Globulin Ratio 1.1 Assessment & Plan - Assessment and Plan (Free Text) Assessment: Gareth Leblanc is a 38M w/ hx of chronic pancreatitis on Pancrease, renal insufficiency, Afib on Eliquis, and nonischemic cardiomyopathy presenting with shortness of breath, for 4 days Abd Pain; DDx: Chronic pancreatitis, PUD Chronic Diarrhea; etiology likely 2/2 pancreatic insufficiency hx of pancreatitis hx of renal stones Plan: -would present PPI daily -advised that pt can follow-up as an oupt for EGD and colonoscopy -advised to continue pancreatic enzymes -recommend f/u Dr. Dozier for possible celiac block -avoid ETOH and smoking -diet as tolerated D/W Dr. Choe <Souleymane Choe V - Last Filed: 11/29/18 23:31> Results - Vital Signs Recent Vital Signs: Last Vital Signs Temp 97.4 F L 11/29/18 20:10 Pulse 68 11/29/18 20:10 Resp 18 11/29/18 20:10 BP 129/90 11/29/18 20:10 Pulse Ox 94 L 11/29/18 20:10 - Labs Result Diagrams: 11/29/18 06:00 11/29/18 06:00 Labs: Laboratory Results - last 24 hr 11/29/18 11/29/18 06:00 06:00 WBC 6.8 RBC 5.18 Hgb 15.6 Hct 48.1 MCV 92.9 MCH 30.1 MCHC 32.4 RDW 16.2 H Plt Count 293 MPV 10.8 Sodium 132 Potassium 4.0 Chloride 95 L Carbon Dioxide 29 Anion Gap 12 BUN 34 H Creatinine 1.4 Est GFR ( Amer) > 60 Est GFR (Non-Af Amer) 56 Random Glucose 98 Calcium 10.0 Total Bilirubin 0.5 AST 20 ALT 15 Alkaline Phosphatase 85 Total Protein 8.0 Albumin 4.2 Globulin 3.9 Albumin/Globulin Ratio 1.1 Attending/Attestation - Attestation I have personally seen and examined this patient.: Yes I have fully participated in the care of the patient.: Yes I have reviewed all pertinent clinical information: Yes Notes (Text): This is an addendum to GI consult report dictated by the GI Fellow. The patient was seen and examined earlier. Medical records, lab studies, imagings were reviewed. Last 24 hours events reviewed. Agreed with the above treatment plan as outlined in GI Fellow 's notes with the addition of the following 11/29/18 23:31
--- NOTE | 2018-11-29 21:31 | PN ---
DATE: 11/29/2018 SUBJECTIVE: The patient is seen lying in bed. He appears to be comfortable but he complains of severe abdominal pain? PHYSICAL EXAMINATION: GENERAL: Young male sitting in bed. VITAL SIGNS: Blood pressure 105/75, heart rate 80, respiratory rate 20, and temperature 98. HEENT: Normocephalic and atraumatic. No pallor. No icterus. NECK: Supple. No JVD. LUNGS: Bilateral equal entry. No rales. CARDIAC: S1 and S2. Regular rate and rhythm. No murmur. No rub. ABDOMEN: Obese, distended, soft. Bowel sounds present. EXTREMITIES: No lower extremity edema. INTAKE AND OUTPUT: 2130/2450. LABORATORY DATA: WBC 6.8, hemoglobin 15.6, hematocrit 48, and platelets 293. Sodium 132, potassium 4.0, chloride 95, CO2 of 29, BUN 34, creatinine 1.4, glucose 98, calcium 10.0, and albumin 4.2. Renal scan dilated nonobstructed left kidney with extremely poor renal function, normal right renal function. CURRENT MEDICATIONS: Digoxin 0.125 mg daily, Dilaudid, Eliquis, Flomax, Lasix, Xopenex, Zofran, and allopurinol. ASSESSMENT: 1. Extremely poorly functioning dilated left kidney, status post removal of stent. 2. Hypertension, well controlled. 3. Chronic pain? real. 4. Cardiomyopathy. 5. Atrial fibrillation. 6. Morbid obesity. PLAN: 1. In light of extremely poor function of the left kidney I think there is no value of replacing the stent in the left kidney. We will discuss with Urology. 2. Continue current antihypertensives. 3. Switch to p.o. Lasix 40 mg b.i.d. 4. Continue digoxin. 5. Discharge planning. Angelica Don MD
--- NOTE | 2018-11-29 23:56 | DS ---
HOSPITAL COURSE: The patient is 38 years old, was seen earlier, see the progress note dictated on 11/29. Renal scan was read and does not show any significant blockage; however, he has nonobstructive dilated ureter. Spoke to Dr. Summers. There is no plan for any procedure, so the patient is going to be discharged. DISCHARGE MEDICATIONS: He will resume his medications including Eliquis, spironolactone, Lasix, Pepcid, digoxin and carvedilol. DISCHARGE INSTRUCTIONS: He will follow with me, Dr. Don and Dr. Summers as outpatient. Sammy Santiago MD
== END 2018-11-29 20:52 | disposition home or self-care (01) | DRG 699 ==
LOC: ED 22:04 → ERH 11-23 01:02 → 2RNO 11-23 02:06 → 3RSO 11-25 12:44
PROVIDERS: ADMIT Internal Medicine; ATTEND Internal Medicine
PROC: 0TP98DZ Removal of Intraluminal Device from Ureter, Via Natural or Artificial Opening Endoscopic (ICD-10-PCS; principal; 2018-11-27 07:30)
DX: T83.84XA Pain due to genitourinary prosthetic devices, implants and grafts, initial encounter (principal); N13.2 Hydronephrosis with renal and ureteral calculous obstruction; I13.0 Hypertensive heart and chronic kidney disease with heart failure and stage 1 through stage 4 chronic kidney disease, or unspecified chronic kidney disease; I50.22 Chronic systolic (congestive) heart failure; K86.1 Other chronic pancreatitis; I42.9 Cardiomyopathy, unspecified; N17.9 Acute kidney failure, unspecified; Z68.43 Body mass index [BMI] 50.0-59.9, adult; J44.9 Chronic obstructive pulmonary disease, unspecified; N18.3 Chronic kidney disease, stage 3 (moderate); E86.0 Dehydration; E11.22 Type 2 diabetes mellitus with diabetic chronic kidney disease; E66.01 Morbid (severe) obesity due to excess calories; K21.9 Gastro-esophageal reflux disease without esophagitis; I48.2 Chronic atrial fibrillation; K57.30 Diverticulosis of large intestine without perforation or abscess without bleeding; F17.200 Nicotine dependence, unspecified, uncomplicated; I48.0 Paroxysmal atrial fibrillation; M10.9 Gout, unspecified; Y84.8 Other medical procedures as the cause of abnormal reaction of the patient, or of later complication, without mention of misadventure at the time of the procedure; Z79.01 Long term (current) use of anticoagulants; Z87.11 Personal history of peptic ulcer disease

== ENCOUNTER 2019-01-20 23:31 | Inpatient (IN) | payer BC ==
--- NOTE | 2019-01-20 23:44 | ED PDOC ---
Arrival/HPI - General Time Seen by Provider: 01/20/19 23:37 Historian: Patient - History of Present Illness Narrative History of Present Illness (Text): 01/20/19 23:42 Gareth Leblanc is a 38 year old male, whose past medical history includes CHF, COPD, recurrent pancreatitis, diabetes, hypertension, hyperlipidemia, atrial fibrillation, peptic ulcer disease, and nephrolithiasis s/p left ureteral stent, who presents to the ED complaining of abdominal pain. Patient states he has been experiencing LUQ abdominal pain with associated chest discomfort, some shortness of breath, nausea, and vomiting since yesterday. Patient notes symptoms are similar in quality to previous episodes of pancreatitis and came in for further evaluation. Patient denies any recent alcohol consumption, fever, chills, shortness of breath, diarrhea, back pain, neck pain, headache, or any other complaints. Time/Duration: < week (yesterday) Symptom Onset: Gradual Symptom Course: Unchanged Activities at Onset: Light Context: Home Past Medical History - Provider Review Nursing Documentation Reviewed: Yes - Past History Past History: Non-Contributing - Infectious Disease Hx of Infectious Diseases: None - Tetanus Immunization Tetanus Immunization: Unknown - Cardiac Hx Cardiac Disorders: Yes (cardiomyopathy) Hx Cardiac Arrhythmia: Yes (Afib) Hx Congestive Heart Failure: Yes Hx Pacemaker: No - Pulmonary Hx Respiratory Disorders: Yes Hx Asthma: Yes Hx Chronic Obstructive Pulmonary Disease (COPD): Yes Hx Sleep Apnea: Yes - Neurological Hx Neurological Disorder: No - HEENT Hx HEENT Disorder: No - Renal Hx Renal Disorder: Yes Hx Kidney Stones: Yes Hx Renal Failure: Yes Other/Comment: renal stent - Endocrine/Metabolic Hx Endocrine Disorders: Yes Hx Diabetes Mellitus Type 2: Yes (new) - Hematological/Oncological Hx Blood Transfusions: No Hx Blood Transfusion Reaction: No - Integumentary Hx Dermatological Disorder: Yes - Musculoskeletal/Rheumatological Hx Musculoskeletal Disorders: Yes Hx Back Pain: Yes Hx Falls: No Hx Gout: Yes Hx Unsteady Gait: No - Gastrointestinal Hx Gastrointestinal Disorders: Yes (morbidly obese, abd pain) Hx Diverticulitis: Yes Hx Gall Bladder Disease: Yes Hx Gastroesophageal Reflux: Yes Hx Pancreatitis: Yes (quit drinking since pancreatitis) - Genitourinary/Gynecological Hx Genitourinary Disorders: Yes Hx Hematuria: Yes Hx Urinary Tract Infection: Yes Other/Comment: pylonephritis - Psychiatric Hx Psychophysiologic Disorder: No Hx Emotional Abuse: No Hx Physical Abuse: No Hx Substance Use: No - Past Surgical History Past Surgical History: No Previous - Surgical History Hx Cholecystectomy: Yes Other/Comment: left ureteral pigtail stent and replacement, cysto - Anesthesia Hx Anesthesia Reactions: No Hx Malignant Hyperthermia: No - Suicidal Assessment Feels Threatened In Home Enviroment: No Family/Social History - Physician Review Nursing Documentation Reviewed: Yes Family/Social History: Unknown Family HX Smoking Status: Light Smoker < 10 Cigarettes Daily Hx Alcohol Use: No Hx Substance Use: No Hx Substance Use Treatment: No Allergies/Home Meds Allergies/Adverse Reactions: Allergies LUZ Inhibitors Allergy (Severe, Verified 07/22/18 14:37) ANGIOEDEMA Home Medications: Home Meds Medication Instructions Recorded Confirmed Amylase/Lipase/Protease [Pancrease 3 tab PO AC 12/13/17 01/21/19 40408 U-5000 [id number] U] Apixaban [Eliquis] 2.5 mg PO BID 11/23/18 01/21/19 Colchicine [Colcrys] 0.6 mg PO DAILY 01/21/19 01/21/19 Digoxin 0.125 mg PO DAILY 01/21/19 01/21/19 Famotidine [Pepcid] 20 mg PO BID 01/21/19 01/21/19 HYDROmorphone [Dilaudid 2 mg Tab] 2 mg PO TID PRN 01/21/19 01/21/19 Review of Systems - Physician Review All systems were reviewed & negative as marked: Yes - Review of Systems Constitutional: Normal. absent: Fevers Eyes: Normal ENT: Normal Respiratory: SOB. absent: Cough Cardiovascular: Chest Pain Gastrointestinal: Abdominal Pain, Nausea, Vomiting. absent: Diarrhea Genitourinary Male: Normal. absent: Dysuria, Frequency, Hematuria, Urinary Output Changes Musculoskeletal: Normal. absent: Back Pain, Neck Pain Skin: Normal. absent: Rash Neurological: Normal. absent: Headache, Dizziness Endocrine: Normal Hemo/Lymphatic: Normal Psychiatric: Normal Physical Exam Vital Signs Reviewed: Yes Temperature: Afebrile Blood Pressure: Normal Pulse: Regular Respiratory Rate: Normal Appearance: Positive for: Well-Appearing, Non-Toxic, Comfortable Pain Distress: None Mental Status: Positive for: Alert and Oriented X 3 - Systems Exam Head: Present: Atraumatic, Normocephalic Pupils: Present: PERRL Extroacular Muscles: Present: EOMI Conjunctiva: Present: Normal Mouth: Present: Moist Mucous Membranes Neck: Present: Normal Range of Motion Respiratory/Chest: Present: Good Air Exchange, Rhonchi. No: Respiratory Distress, Accessory Muscle Use Cardiovascular: Present: Regular Rate and Rhythm, Normal S1, S2. No: Murmurs Abdomen: Present: Tenderness (LUQ). No: Distention, Peritoneal Signs Back: Present: Normal Inspection Upper Extremity: Present: Normal Inspection. No: Cyanosis, Edema Lower Extremity: Present: Normal Inspection, Edema Neurological: Present: GCS=15, CN II-XII Intact, Speech Normal, Motor Func Grossly Intact, Normal Sensory Function Skin: Present: Warm, Dry, Normal Color. No: Rashes Psychiatric: Present: Alert, Oriented x 3, Normal Insight, Normal Concentration Medical Decision Making ED Course and Treatment: 01/20/19 23:42 Impression: 38 year old male complaining of LUQ abdominal pain, chest discomfort, nausea, and vomiting. Plan: -- EKG -- CXR -- Labs, cardiac enzymes, BNP, lipase -- Zofran -- Pepcid -- Morphine -- Reassess and disposition Prior Visits: Notes and results from previous visits were reviewed. Progress Notes: Reviewed EKG, a fib at 106 bpm. Occasional PVC. Anteroseptal infarct. Unchanged from EKG on 11/22/2018. 01/21/19 00:42 Chest X-ray reviewed, shows cardiomegaly and slightly increased pulmonary vascular markings. 01/21/19 04:20 CT Abdomen and Pelvis: Mild cardiomegaly. Small sliding hiatal hernia. The visualized lung bases are unremarkable. Normal unenhanced liver. Surgically absent gallbladder and nondilated extrahepatic biliary system. Normal unenhanced spleen. Normal pancreas. Normal bilateral adrenal glands. Normal size of the right kidney. There is no right renal mass. There are no right renal calculi. There is no right hydronephrosis. Normal visualized right ureter. Mild atrophy of the left kidney. There is no left renal mass. There are no left renal calculi. There is no left hydronephrosis. Normal visualized left ureter. Left perinephric fat stranding. Normal visualized stomach. Normal small intestine. Diverticulosis of the colon. Mild multifocal thickening of the colon. The appendix is visualized and appears normal. There is no demonstrated peritoneal fluid. Normal abdominal aorta. Normal inferior vena cava. Normal retroperitoneum. Normal urinary bladder. There is no pelvic mass lesion or lymphadenopathy. There is no pelvic fluid. Normal abdominal wall. Normal osseous structures. IMPRESSION: Mild left renal cortical atrophy. Left perinephric fat stranding which can be secondary to recent passage of a calculus and/or ascending urinary tract infection. Mild multifocal thickening of the colon. Underdistention, spasm versus mild c olitis. Electronically signed on Jan 21, 2019 4:32:00 AM EDT by: Camacho Temple M.D., Certified by ABR, MSK, Neuroradiology 01/21/19 04:[address] Santiago, who is aware and agrees with plan. Accepts pt in to her service. Requests Dr. Choe on consult. - Lab Interpretations I have reviewed the lab results: Yes - RAD Interpretation Flatwork Catcher: ED Physician - EKG Interpretation Interpreted by ED Physician: Yes Type: 12 lead EKG - Scribe Statement The provider has reviewed the documentation as recorded by the Jose A Gerber Provider Scribe Attestation: All medical record entries made by the Scribe were at my direction and personally dictated by me. I have reviewed the chart and agree that the record accurately reflects my personal performance of the history, physical exam, medical decision making, and the department course for this patient. I have also personally directed, reviewed, and agree with the discharge instructions and disposition. Disposition/Present on Arrival - Present on Arrival Any Indicators Present on Arrival: No History of DVT/PE: No History of Uncontrolled Diabetes: No Urinary Catheter: No History of Decub. Ulcer: No History Surgical Site Infection Following: None - Disposition Have Diagnosis and Disposition been Completed?: Yes Diagnosis: Intractable vomiting, Intractable abdominal pain, Pancreatitis, chronic, Chest pain, CHF exacerbation Disposition: HOSPITALIZED Disposition Time: 05:09 Patient Plan: Admission Patient Problems: Current Active Problems Problem Status Onset CHF exacerbation Acute Chest pain Acute Intractable abdominal pain Acute Intractable vomiting Acute Pancreatitis, chronic Acute Condition: STABLE
[2019-01-20 23:47] VITALS: BMI 52.3
[2019-01-20] MEDS ORDERED: Morphine 2 mg/ml ISec IVP STA ×2 (23:48→23:50)
[2019-01-21 00:32] LABS: MEAN CELL VOLUME 92.4 fl (80.0-105.0); MEAN CORPUSCULAR HEMOGLOBIN 30.9 pg (25.0-35.0); MEAN CORPUSCULAR HGB CONC 33.5 g/dl (31.0-37.0); MEAN PLATELET VOLUME 11.7 fl (7.0-11.0); RBC 5.5 10^6/uL (3.5-6.1); WHITE BLOOD COUNT 10.8 10^3/uL (4.5-11.0)
[2019-01-21 00:41] LABS: INR 1.29; PARTIAL THROMBOPLASTIN TIME 40.6 Seconds (26.9-38.3); PROTHROMBIN TIME 14.3 SECONDS (9.4-12.5)
[2019-01-21 00:49] LABS: ALBUMIN 4.5 g/dL (3.0-4.8)
[2019-01-21 00:57] LABS: TROPONIN I 0.03 ng/mL
[2019-01-21] MEDS ORDERED: Morphine 2 mg/ml ISec IVP STA ×3 (01:11→02:57)
[2019-01-21] MEDS ORDERED: Morphine 4 mg/ml ISec ONE ×2 (01:26→02:56)
--- NOTE | 2019-01-21 05:15 | CT ---
Date of service: 01/21/2019 PROCEDURE: CT Abdomen and Pelvis without intravenous contrast HISTORY: left upper abdominal pain COMPARISON: Comparison is made with the previous study dated 11/26/2018 TECHNIQUE: Axial and reformatted coronal and sagittal CT images of the abdomen and pelvis were obtained without IV or oral contrast administration.. Contrast dose: 0 Radiation dose: Total exam DLP = 1164.36 mGy-cm. This CT exam was performed using one or more of the following dose reduction techniques: Automated exposure control, adjustment of the mA and/or kV according to patient size, and/or use of iterative reconstruction technique. FINDINGS: LOWER THORAX: Unremarkable. LIVER: Unremarkable. No gross lesion or ductal dilatation. GALLBLADDER AND BILE DUCTS: Status post cholecystectomy. PANCREAS: Unremarkable. No gross lesion or ductal dilatation. SPLEEN: Unremarkable. ADRENALS: Unremarkable. No mass. KIDNEYS AND URETERS: Interval removal of left ureteral stent since the previous exam. The left kidney is smaller in size than the right. Again noted is nonspecific left perinephric stranding. No evidence of significant left hydronephrosis or hydroureter. No definite evidence of obstructing stone in the collecting system of the left kidney. No evidence of right renal calculi or hydronephrosis. VASCULATURE: Unremarkable. No aortic aneurysm. No aortic atherosclerotic calcification or mural plaque present. BOWEL: Unremarkable. No obstruction. No gross mural thickening. Scattered colonic diverticulosis are again noted. There mild fat stranding noted adjacent to the descending sigmoid colon junction may represent mild diverticulitis. APPENDIX: Unremarkable. Normal appendix. PERITONEUM: Unremarkable. No free fluid. No free air. LYMPH NODES: Unremarkable. No enlarged lymph nodes. BLADDER: Unremarkable. REPRODUCTIVE: Unremarkable. BONES: No acute fracture. OTHER FINDINGS: None. IMPRESSION: Interval removal of the left ureteral stent since the previous exam. No evidence of obstructing renal calculi. Nonspecific mild to moderate left perinephric stranding. Descending and sigmoid colon diverticulosis. Questionable mild inflammatory changes surrounding the junction of the descending and sigmoid colon suspicious for mild diverticulitis. Please correlate clinically. Preliminary report was submitted by [facility] .
--- NOTE | 2019-01-21 05:59 | RAD ---
Date of service: 01/21/2019 HISTORY: sob COMPARISON: Comparison is made with 01/20/2019 TECHNIQUE: 1 view obtained. FINDINGS: LUNGS: Moderate pulmonary vascular congestion is again noted. PLEURA: No significant pleural effusion identified, no pneumothorax apparent. CARDIOVASCULAR: No aortic atherosclerotic calcification present. The cardiac silhouette is enlarged. No pulmonary vascular congestion. OSSEOUS STRUCTURES: No significant abnormalities. VISUALIZED UPPER ABDOMEN: Normal. OTHER FINDINGS: None. IMPRESSION: Cardiomegaly and [id number] pulmonary vascular congestion. Correlate clinically for CHF.
--- NOTE | 2019-01-21 11:31 | CP.PCM.CON ---
<Devendra Suazo - Last Filed: 01/21/19 17:47> History of Present Illness - History of Present Illness History of Present Illness: PGY-4 GI Fellow Consult patient is a 38-year-old black male with a history of chronic pancreatitis on Pancrease(status post celiac plexus block), CKD,history of ureteral stone status post stent with subsequent removal, Afib on apixaban, and nonischemic cardiom yopathy, diabetes, recurrent diverticulitis, presenting with abdominal pain. He states for the last 3 days he has had left-sided abdominal pain described as "feel like him being kicked." States he is concerned this might feel like his prior pancreatitis pain. He reports compliance with his pancreatic enzymes and has been avoiding alcohol; however, he does report ongoing tobacco abuse. He states his last bowel movement was oily and the loose on Monday. He reports feeling nausea with some episodes of bilious emesis,mild shortness of breath as well as decreased appetite and decreased urine output. He denied any overt hematemesis, weight loss, dysphasia nor hematochezia at this time. States he believes that he is due for repeat endoscopy and colonoscopy. 12 point review of systems negative other than stated above. Medical history: See above Surgical History- left ureteral stent placement, cholecystectomy, EUS 07/2016(GB sludge/stone, tortuous CBD normal) Medications: Reviewed Family History- denied history of GI problems or GI cancers Social History- denies tobacco, alcohol, illicit drug use All: LUZ inhibitors Past Patient History - Infectious Disease Hx of Infectious Diseases: None - Tetanus Immunizations Tetanus Immunization: Unknown - Past Medical History & Family History Past Medical History?: Yes - Past Social History Smoking Status: Light Smoker < 10 Cigarettes Daily - CARDIAC Hx Cardiac Disorders: Yes (cardiomyopathy) Hx Cardia Arrhythmia: Yes (Afib) Hx Congestive Heart Failure: Yes Hx Pacemaker: No - PULMONARY Hx Respiratory Disorders: Yes Hx Asthma: Yes Hx Chronic Obstructive Pulmonary Disease (COPD): Yes Hx Sleep Apnea: Yes - NEUROLOGICAL Hx Neurological Disorder: No - HEENT Hx HEENT Problems: No - RENAL Hx Chronic Kidney Disease: Yes Hx Kidney Stones: Yes Hx Renal Failure: Yes Other/Comment: renal stent - ENDOCRINE/METABOLIC Hx Endocrine Disorders: Yes Hx Diabetes Mellitus Type 2: Yes (new) - HEMATOLOGICAL/ONCOLOGICAL Hx Blood Transfusions: No Hx Blood Transfusion Reaction: No - INTEGUMENTARY Hx Dermatological Problems: Yes - MUSCULOSKELETAL/RHEUMATOLOGICAL Hx Musculoskeletal Disorders: Yes Hx Back Pain: Yes Hx Falls: No Hx Gout: Yes Hx Unsteady Gait: No - GASTROINTESTINAL Hx Gastrointestinal Disorders: Yes (morbidly obese, abd pain) Hx Diverticulitis: Yes Hx Gall Bladder Disease: Yes Hx Gastroesophageal Reflux: Yes Hx Pancreatitis: Yes (quit drinking since pancreatitis) - GENITOURINARY/GYNECOLOGICAL Hx Genitourinary Disorders: Yes Hx Hematuria: Yes Hx Urinary Tract Infection: Yes Other/Comment: pylonephritis - PSYCHIATRIC Hx Psychophysiologic Disorder: No Hx Emotional Abuse: No Hx Physical Abuse: No Hx Substance Use: No - SURGICAL HISTORY Hx Cholecystectomy: Yes Other/Comment: left ureteral pigtail stent and replacement, cysto - ANESTHESIA Hx Anesthesia Reactions: No Hx Malignant Hyperthermia: No Meds Allergies/Adverse Reactions: Allergies Allergy/AdvReac Type Severity Reaction Status Date / Time LUZ Inhibitors Allergy Severe ANGIOEDEMA Verified 07/22/18 14:37 - Medications Medications: Current Medications Ondansetron HCl (Zofran Inj) 4 mg IVP Q4H PRN PRN Reason: Nausea/Vomiting Stop: 01/21/19 12:00 Last Admin: 01/21/19 10:42 Dose: 4 mg Physical Exam - Constitutional Appears: Well, No Acute Distress, Chronically Ill - Head Exam Head Exam: ATRAUMATIC, NORMAL INSPECTION - Eye Exam Eye Exam: EOMI. absent: Scleral icterus - ENT Exam ENT Exam: Mucous Membranes Moist. absent: Mucous Membranes Dry - Respiratory Exam Respiratory Exam: NORMAL BREATHING PATTERN. absent: Accessory Muscle Use - Cardiovascular Exam Cardiovascular Exam: REGULAR RHYTHM, Systolic Murmur - GI/Abdominal Exam GI & Abdominal Exam: Guarding (voluntary upon palpation of left side of abdomen), Normal Bowel Sounds, Soft, Tenderness (tender to palpation on left side with voluntary guarding, obesity limiting exam). absent: Bruit, Diminished Bowel Sounds, Distended, Firm, Hernia, Organomegaly, Pulsatile Mass, Rebound, Rigid - Extremities Exam Extremities exam: Positive for: normal inspection, pedal edema (trace bilateral lower extremity edema) - Neurological Exam Neurological exam: Alert, Oriented x3 - Psychiatric Exam Psychiatric exam: Anxious, Normal Affect - Skin Skin Exam: Normal Color, Warm Results - Vital Signs Recent Vital Signs: Last Vital Signs Temp 98.4 F 01/21/19 01:31 Pulse 104 H 01/21/19 06:04 Resp 20 04/22/19 06:04 BP 102/68 01/21/19 06:04 Pulse Ox 95 01/21/19 06:04 - Labs Result Diagrams: 01/21/19 00:10 01/21/19 00:10 Labs: Laboratory Results - last 24 hr 01/21/19 01/21/19 01/21/19 00:10 00:10 00:10 WBC 10.8 D RBC 5.50 Hgb 17.0 Hct 50.8 MCV 92.4 MCH 30.9 MCHC 33.5 RDW 17.0 H Plt Count 334 MPV 11.7 H PT 14.3 H INR 1.29 APTT 40.6 H Sodium 142 Potassium 4.4 Chloride 104 Carbon Dioxide 24 Anion Gap 18 BUN 19 Creatinine 1.6 H Est GFR ( Amer) 58 Est GFR (Non-Af Amer) 48 Random Glucose 115 H Calcium 10.0 Total Bilirubin 1.0 AST 37 ALT 16 Alkaline Phosphatase 98 Lactate Dehydrogenase 738 H Total Creatine Kinase 62 Troponin I 0.03 D NT-Pro-B Natriuret Pep Total Protein 8.9 H Albumin 4.5 Globulin 4.3 Albumin/Globulin Ratio 1.0 L Lipase 102 01/21/19 00:10 WBC RBC Hgb Hct MCV MCH MCHC RDW Plt Count MPV PT INR APTT Sodium Potassium Chloride Carbon Dioxide Anion Gap BUN Creatinine Est GFR ( Amer) Est GFR (Non-Af Amer) Random Glucose Calcium Total Bilirubin AST ALT Alkaline Phosphatase Lactate Dehydrogenase Total Creatine Kinase Troponin I NT-Pro-B Natriuret Pep 2040 H Total Protein Albumin Globulin Albumin/Globulin Ratio Lipase Assessment & Plan - Assessment and Plan (Free Text) Assessment: 38-year-old black male with obesity, nonischemic cardiomyopathy, history of pancreatitis, recurrent diverticulitis, nephrolithiasis status post stent with subsequent removal, COPD, CHF, diabetes, hypertension, atrial fibrillation on apixaban, CKD presenting with abdominal pain # Abdominal pain:suspect multifactorial in nature due to perhaps component acute on chronic pancreatitis in the setting of ongoing tobacco use. As well as possible recurrent diverticulitis given symptoms and CT images. Patient also with perinephric stranding on CT though has not produced a urinalysis yet. Plan: -Agree with follow-up urinalysis Plan for EGD on Monday We will review CT scan and consider antibiotics for diverticulitis supportive care, H2RA Continue pancreatic enzymes Patient seen and examined with Dr. Choe. Please see attestation for further recommendations/changes Portions of this note has been dictated but not necessarily proofread <Souleymane Choe V - Last Filed: 01/22/19 22:59> Meds - Medications Medications: Current Medications Allopurinol (Zyloprim) 300 mg PO DAILY [facility] Last Admin: 01/22/19 09:45 Dose: 300 mg Amylase (Pancrease 02280 U-5000 [id number] U) 5,000 unit PO AC [facility] Last Admin: 01/22/19 17:23 Dose: Not Given Aspirin (Ecotrin) 325 mg PO DAILY [facility] Last Admin: 01/22/19 09:48 Dose: 325 mg Carvedilol (Coreg) 3.125 mg PO BID [facility] Last Admin: 01/22/19 17:23 Dose: 3.125 mg Clopidogrel Bisulfate (Plavix) 75 mg PO DAILY [facility] Colchicine (Colocrys) 0.6 mg PO DAILY [facility] Last Admin: 01/22/19 09:45 Dose: 0.6 mg Digoxin (Digoxin) 0.125 mg PO DAILY [facility] Last Admin: 01/22/19 09:45 Dose: 0.125 mg Enoxaparin Sodium (Lovenox) 120 mg SC Q24H [facility]; Protocol Stop: 01/23/19 23:59 Last Admin: 01/22/19 08:21 Dose: 120 mg Famotidine (Pepcid) 20 mg IVP BID [facility] Last Admin: 01/22/19 17:24 Dose: 20 mg Hydromorphone HCl (Dilaudid) 1 mg IVP Q4H PRN PRN Reason: Pain, moderate (4-7) Last Admin: 01/22/19 21:23 Dose: 1 mg Dextrose/Sodium Chloride (Dextrose 5%/0.45% Ns 1000 Ml) 1,000 mls @ 60 mls/hr IV .[id number] [facility] Last Admin: 01/22/19 21:24 Dose: 60 mls/hr Ondansetron HCl (Zofran Inj) 4 mg IVP Q6H PRN PRN Reason: Nausea/Vomiting Last Admin: 01/22/19 21:24 Dose: 4 mg Spironolactone (Aldactone) 25 mg PO BID [facility] Last Admin: 01/22/19 17:23 Dose: 25 mg Tamsulosin HCl (Flomax) 0.4 mg PO DAILY [facility] Last Admin: 01/22/19 14:15 Dose: 0.4 mg Results - Vital Signs Recent Vital Signs: Last Vital Signs Temp 97.4 F L 01/22/19 18:00 Pulse 73 01/22/19 22:00 Resp 20 01/22/19 18:00 BP 135/84 01/22/19 18:00 Pulse Ox 96 01/22/19 18:00 - Labs Result Diagrams: 01/22/19 07:45 01/22/19 07:45 Labs: Laboratory Results - last 24 hr 01/22/19 01/22/19 01/22/19 07:45 07:45 07:45 WBC 8.9 RBC 4.95 Hgb 15.2 Hct 46.0 MCV 92.9 MCH 30.7 MCHC 33.0 RDW 16.8 H Plt Count 285 MPV 11.1 H Neut % (Auto) 51.2 Lymph % (Auto) 30.5 Wallace % (Auto) 12.3 H Eos % (Auto) 6.0 H Baso % (Auto) 0.0 Lymph # (Auto) 2.7 Wallace # (Auto) 1.1 H Eos # (Auto) 0.5 Baso # (Auto) 0.00 Absolute Neuts (auto) 4.54 Sodium 133 Potassium 4.1 Chloride 99 Carbon Dioxide 22 Anion Gap 16 BUN 21 Creatinine 1.8 H Est GFR ( Amer) 51 Est GFR (Non-Af Amer) 42 Random Glucose 87 Hemoglobin A1c 6.3 Calcium 9.1 Phosphorus 4.5 Magnesium 1.9 Total Bilirubin 0.9 AST 20 ALT 21 Alkaline Phosphatase 80 NT-Pro-B Natriuret Pep 1050 H Total Protein 7.3 Albumin 3.8 Globulin 3.5 Albumin/Globulin Ratio 1.1 Triglycerides 88 Cholesterol 130 LDL Cholesterol Direct 89 HDL Cholesterol 24 L TSH 3rd Generation Urine Color Urine Appearance Urine pH Ur Specific [place] Urine Protein Urine Glucose (UA) Urine Ketones Urine Blood Urine Nitrate Urine Bilirubin Urine Urobilinogen Ur Leukocyte Esterase 01/22/19 01/22/19 07:45 15:16 WBC RBC Hgb Hct MCV MCH MCHC RDW Plt Count MPV Neut % (Auto) Lymph % (Auto) Wallace % (Auto) Eos % (Auto) Baso % (Auto) Lymph # (Auto) Wallace # (Auto) Eos # (Auto) Baso # (Auto) Absolute Neuts (auto) Sodium Potassium Chloride Carbon Dioxide Anion Gap BUN Creatinine Est GFR ( Amer) Est GFR (Non-Af Amer) Random Glucose Hemoglobin A1c Calcium Phosphorus Magnesium Total Bilirubin AST ALT Alkaline Phosphatase NT-Pro-B Natriuret Pep Total Protein Albumin Globulin Albumin/Globulin Ratio Triglycerides Cholesterol LDL Cholesterol Direct HDL Cholesterol TSH 3rd Generation 2.93 Urine Color Yellow Urine Appearance Clear Urine pH 6.0 Ur Specific [place] 1.025 Urine Protein Negative Urine Glucose (UA) Negative Urine Ketones Negative Urine Blood Negative Urine Nitrate Negative Urine Bilirubin Negative Urine Urobilinogen 0.2 Ur Leukocyte Esterase Negative Attending/Attestation - Attestation I have personally seen and examined this patient.: Yes I have fully participated in the care of the patient.: Yes I have reviewed all pertinent clinical information: Yes Notes (Text): This patient was seen and evaluated along with the GI fellow. CT scan was reviewed. Patient complain of epigastric and also left lower quadrant discomfort. History of recurrent urinary tract infection kidney stones. Dilat ed cardiomyopathy A. fib history of chronic pancreatitis. Patient does have a history of recurrent diverticulitis We will continue the antibiotics Would benefit from upper GI endoscopy. Patient was Eliquis switched over to Lovenox Will discuss with the Dr. Santiago 01/22/19 22:57
[2019-01-21] MEDS: Digoxin 125 mcg (0.125 mg) Tab PO SCH (12:28)
[2019-01-21] MEDS: Dextrose 5%/0.45% NS 1,000 ML IV SCH (12:29)
[2019-01-21] MEDS: HYDROmorphone 1 mg/ml ISec IVP PRN ×3 (13:10→21:49)
[2019-01-21] MEDS ORDERED: Pneumococcal 23-Valent Vaccine IM ONE (16:08)
[2019-01-21] MEDS: Amylase/Lipase/Protease 5,000 Units ECC PO SCH (17:51)
--- NOTE | 2019-01-21 19:04 | CP.PCM.PCO ---
Summary - Summary of Event Summary of Event: House Resident Note Haseeb Lau DO, CECILIO PGY-3 Called to evaluate patient complaining of abdominal pain and nausea. Pt of Dr. Santiago's with PMH including chronic pancreatitis on pancreatic enzymes, CKD, Afib, and non-ischemic cardiomyopathy who presented for abdominal pain, likely component of acute on chronic pancreatitis as per GI. Last EKG (from 01/20) reviewed, QTc concerning at 480; repeat EKG ordered to reassess, concerning for QTc 497. Given this finding and underlying cardiac hx, cannot safely utilize anti-emetic medication at this time, as may further prolong QTc and risk significant and possibly life-threatening arrhythmias. Nursing and patient notified of risk of prolonged QTc, and danger in providing anti-emetic medication at this time.
--- NOTE | 2019-01-21 19:04 | CARD ---
APPROVED REPORT Date of service: 01/20/2019 EKG Measurement Heart [id number] <Conclusion> Atrial fibrillation with rapid ventricular response with premature ventricular or aberrantly conducted complexes Anteroseptal infarct, age undetermined Abnormal ECG
--- NOTE | 2019-01-21 22:21 | HP ---
DATE OF EXAM: 01/21/2019 HISTORY OF PRESENT ILLNESS: The patient is a 38-year-old black male, known to me from multiple previous admission. He states since he was discharged last time, he has not been eating well, he has been vomiting and has epigastric discomfort. He also states he is not peeing a lot either. He drinks enough fluid, but goes only 3 times a day. Denies any urinary discomfort or hematuria. No history of diarrhea lately. No history of rectal bleeding. PAST MEDICAL HISTORY: Significant for: 1. Nonischemic cardiomyopathy. 2. Congestive heart failure. 3. History of hypertension. 4. Chronic kidney disease. 5. History of nephrolithiasis, status post stent placement that was removed on last admission. 6. Morbid obesity. PAST SURGICAL HISTORY: Significant for cholecystectomy. He also has a history of chronic atrial fibrillation. ALLERGIES: HE IS ALLERGIES TO LUZ INHIBITORS THAT CAUSES HIM LIP SWELLING. SOCIAL HISTORY: He used to be heavy alcohol user, but quit since he has having abdominal issues. He is still active smoker and he smokes almost half a pack daily. MEDICATIONS AT HOME: He is on colchicine 0.6 mg daily, allopurinol 300 mg daily, carvedilol 3.125 mg twice a day, Eliquis 2.5 mg twice a day, he is on Pancrease enzyme, digoxin 0.125 mg daily, Aldactone 25 mg twice a day, Pepcid 20 mg twice a day, Lasix 80 mg twice a day, and nebulizer treatment. PHYSICAL EXAMINATION: GENERAL: Complain of epigastric discomfort. Complaining of feeling nauseous. He is awake and alert and able to communicate. VITAL SIGNS: He is afebrile, pulse 104, respirations 20, and blood pressure 100/68. LUNGS: Bilateral fair airflow. No rhonchi or crackle. HEART: S1 and S2 audible. ABDOMEN: Soft and nontender. No rebound. No guarding. NEUROLOGIC: The patient is awake and alert, and able to communicate. EXTREMITIES: Bilateral legs, no edema. LABORATORY DATA: WBC 10.8, hemoglobin 17, hematocrit 50, and platelet 334. PT 14.3, INR 1.29, and PTT 40.6. Chemistry; sodium 142, potassium 4.4, chloride 104, CO2 of 24, BUN 19, creatinine 1.6, and blood sugars of 115. LFTs are within normal limits. LDH is 738, BNP 2040, and total protein 8.9. He had CT scan of the abdomen and pelvis done that shows there was removal of left ureteral stent since previous exam, no evidence of obstructing renal calculi, [id number] left perinephric stranding, descending and sigmoid colon has diverticulosis, mild inflammatory changing surrounding infection of descending and sigmoid colon, suspicious of mild diverticulitis. ASSESSMENT: 1. Abdominal pain with intractable nausea. 2. Questionable diverticulitis. 3. History of nephrolithiasis. 4. Hypertension. 5. Hypertensive cardiomyopathy. 6. Morbid obesity. PLAN: We will resume the patient's medication. We will keep him n.p.o. We will give him clear liquid diet and analgesic as needed. GI consult by Dr. Choe has been requested. We will follow up the patient in a.m. and follow up his electrolytes. Sammy Santiago MD
--- NOTE | 2019-01-21 23:21 | CON ---
DATE: 01/21/2019 CONSULT SERVICE: Cardiology. REASON FOR CONSULTATION: Chest pain, decompensated congestive heart failure chronic, nonischemic cardiomyopathy, chronic atrial fibrillation, cardiac evaluation admitted with abdominal pain and chest pain. BRIEF CLINICAL HISTORY: This is a 38-year-old morbidly obese male with past medical history significant for nonischemic cardiomyopathy, congestive heart failure, COPD, recurrent pancreatitis, history of alcohol abuse in the past, history of diabetes, hypertension, hyperlipidemia, history of atrial fibrillation, which is now persistent and chronic, history of peptic ulcer disease, history of nephrolithiasis, status post left urethral stone, status post left urethral stent, came in with abdominal pain and complaining of chest pain. I was seeing other patient, the patient called me to see him and states do something because he is having recurrent chest pain. Last time according to the patient, cath was not done because of renal insufficiency, suggested please do something because "I'm having recurrent chest pain." PAST MEDICAL HISTORY: Significant for persistent atrial fibrillation, nonischemic cardiomyopathy, morbid obesity, hypertension, diabetes, and recurrent pancreatitis. SOCIAL HISTORY: Quit drinking, but still smokes a little bit. 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 PREVIOUS CARDIAC WORKUP FOLLOWS: The patient's last echo on 04/25/2018 four-chamber dilatation, nonischemic cardiomyopathy, ejection fraction 30%-35%, moderate mitral regurgitation, moderate tricuspid regurgitation, RV systolic pressure 51, history of chronic atrial fibrillation on Eliquis, history of chronic pancreatitis, and history of cardiac catheterization a couple of years ago at [facility]. CURRENT MEDICATIONS: The patient at home is taking albuterol inhaler, hydromorphone, colchicine, allopurinol, Coreg 3.125, Eliquis 2.5 p.o. b.i.d., digoxin, spironolactone, Pepcid, and Lasix. REVIEW OF SYSTEMS: As per HPI. ALLERGIES: TO LUZ INHIBITORS DEVELOPED ANGIOEDEMA. PHYSICAL EXAMINATION: VITAL SIGNS: Height of the patient is 6 feet 3 inches, weight of the patient is 418 pounds, and body mass index 52 kg/m2. Temperature afebrile, heart rate 79, and blood pressure 117/73. HEENT: PERRLA. Extraocular muscles are intact. NECK: Supple. No carotid bruits or thyromegaly. CHEST: Clear to auscultation. HEART: S1 and S2 regular. ABDOMEN: Soft. EXTREMITIES: Clubbing and cyanosis negative. LABORATORY DATA: EKG shows atrial fibrillation rate of 80. Blood workup; WBC 10.8, hemoglobin 17, hematocrit 50.8, and platelet count 334. Chemistry shows sodium 140, potassium 4.4, chloride 104, carbon dioxide 24, anion gap of 18, BUN 19, and creatinine 1.6. BNP 2039. IMPRESSION: A 38-year-old morbidly obese male with past medical history significant for chronic kidney disease, chronic hypertension, hyperlipidemia, nonischemic cardiomyopathy, atrial fibrillation, history of ureteric stone, status post stent in the left ureter, history of cardiac catheterization 4-5 years at [facility], history of chronic obstructive pulmonary disease, history of congestive heart failure, history of recurrent pancreatitis admitted with chest pain and abdominal pain. So far, troponin remains negative. RECOMMENDATIONS: We will continue gentle hydration. Follow up lipid profile, TSH, and hemoglobin A1c. We will keep him off from Eliquis for 48 hours after today's dose and followup BUN and creatinine and the trend. If it remains stable, consider cardiac catheterization on . If the kidney function gets worse; otherwise, we will predehydrate for the procedure and consider cardiac catheterization. The patient's BNP is elevated, but clinically the patient is not in failure and also radiologically when chest x-ray reviewed, though it is under films hard to assess congestive heart failure, though it shows minimal congestion not pulmonary edema. We will hold Eliquis and start 2 doses of Lovenox 1 mg/kg every 24 hours today and tomorrow. If hemoglobin remains stable, we will load with aspirin, Plavix, and cardiac catheterization on . If BUN and creatinine remains stable, we will proceed for cardiac catheterization and hold Eliquis after 2 days and start 2 doses of Lovenox day after tomorrow. Follow up blood work. Since the patient is ALLERGIC TO LUZ INHIBITOR GIVES ANGIOEDEMA, not a candidate for Entresto because of cross reactivity it is high risk for one of the component of Entresto for cross reactivity with LUZ and ARB. Otherwise, the patient will be a very good candidate for LUZ and ARB. Further recommendations will be made and patient can be put for BiDil with a combination of hydralazine and Imdur second line drug treatment for congestive heart failure in addition to the Coreg. We will get lipid profile, TSH, hemoglobin A1c as well as BNP tomorrow. We will follow with you. Thank you Dr. Santiago for providing us the opportunity in taking care of the patient, Gareth Leblanc. Shayna Thomson MD
[2019-01-22] MEDS: HYDROmorphone 1 mg/ml ISec IVP PRN ×5 (02:49→21:23)
[2019-01-22] MEDS: Dextrose 5%/0.45% NS 1,000 ML IV SCH ×2 (04:35→21:24)
--- NOTE | 2019-01-22 05:23 | CON ---
DATE OF CONSULTATION: 01/21/2019 REASON FOR CONSULTATION: Chronic kidney disease, stage II/III, acute kidney injury, nausea, vomiting, diarrhea. HISTORY OF PRESENTING ILLNESS: A 38-year-old male known to me from multiple prior evaluations. The patient was admitted yesterday with complaints of nausea, vomiting, diarrhea, abdominal pain, chest pain. In the emergency room, he was found to have a blood pressure 142/65, heart rate of 80, temperature of 98. He was found to be hemoconcentrated with a hemoglobin of 17. He was also found to have mild prerenal azotemia, BUN and creatinine 19 over 1.6, slightly higher than his baseline. The patient has a history of chronic pancreatitis, chronic pain, narcotic dependence, atrial fibrillation/flutter, morbid obesity, hypertensive heart disease. Consultation requested for acute kidney injury superimposed on chronic kidney disease stage II. PAST MEDICAL AND SURGICAL HISTORY: Hypertension, chronic pancreatitis, recurrent pancreatic inflammation episodes, COPD, atrial fibrillation, history of left hydronephrosis, left ureteral stent. Removal of left ureteral stent last admission. FAMILY HISTORY: Hypertension. SOCIAL HISTORY: Smoker, no alcohol use, no IV drug abuse. ALLERGIES: LUZ INHIBITORS. MEDICATIONS AT HOME: Dilaudid 2 mg t.i.d. p.r.n., colchicine 0.6, allopurinol 300, Coreg 3.125 b.i.d., Eliquis 2.5 b.i.d., Lasix 80 b.i.d., Aldactone 25 b.i.d., Pepcid, Pancrease. REVIEW OF SYSTEMS: All systems are reviewed, pertinent positives are mentioned in the history of presenting illness, rest unremarkable. PHYSICAL EXAMINATION: GENERAL: Obese, young male, lying in bed. VITAL SIGNS: Blood pressure 126/89, heart rate 98, respiratory rate 22, temperature 98.4. HEENT: Normocephalic, atraumatic. No pallor, no icterus. NECK: Supple, no JVD. LUNGS: Bilateral equal entry, bilateral equal expansion, no rales. CARDIAC: S1 and S2. Irregular rate, irregular rhythm, no murmur, no rub. ABDOMEN: Obese, distended, soft, bowel sounds present. EXTREMITIES: No lower extremity edema. LABORATORY DATA: WBC 10.8, hemoglobin 17, hematocrit 50.8, platelets 734. Sodium 142, potassium 4.4, chloride 104, CO2 of 24, BUN 19, creatinine 1.6, glucose 115, calcium 10, AST 37, ALT 16, albumin 4.5, troponin 0.03, BNP 2040. CURRENT MEDICATIONS: Aldactone 25 b.i.d., colchicine 0.6 daily, Coreg 3.125 b.i.d., D5 half-normal saline at 60, Digoxin 0.125, Eliquis 2.5 b.i.d., Lasix 40 mg IV push given in the emergency room, multiple doses of morphine given in the emergency room, Pepcid 20 IV b.i.d., allopurinol 300, Zofran. ASSESSMENT: 1. Mild prerenal azotemia superimposed on chronic kidney disease stage II. 2. Recurrent episodes of abdominal pain, nausea, vomiting and diarrhea,? pancreatitis. 3. History of atrial fibrillation. 4. History of hypertension. 5. Chronic pain, narcotic dependence. 6. History of left hydronephrosis/left ureteral stent, stent was removed last admission. PLAN: 1. Check urinalysis. 2. Continue low-dose IV fluids. 3. Continue to hold Lasix. 4. Pain management. 5. Early discharge. Angelica Don MD
[2019-01-22 08:03] LABS: EOS # 0.5 (0.0-0.7); HEMOGLOBIN 15.2 g/dL (14.0-18.0); LYMPH # 2.7 (1.2-3.4); LYMPH % 30.5 % (22.0-35.0); MEAN CELL VOLUME 92.9 fl (80.0-105.0); MEAN CORPUSCULAR HEMOGLOBIN 30.7 pg (25.0-35.0); MEAN PLATELET VOLUME 11.1 fl (7.0-11.0); MONO # 1.1 (0.1-0.6); MONO % 12.3 % (1.0-6.0); RBC 4.95 10^6/uL (3.5-6.1); RED CELL DISTRIBUTION WIDTH 16.8 % (11.5-14.5); WHITE BLOOD COUNT 8.9 10^3/uL (4.5-11.0)
[2019-01-22] MEDS: Amylase/Lipase/Protease 5,000 Units ECC PO SCH ×3 (08:19→17:23)
[2019-01-22] MEDS: Enoxaparin 120 mg Syringe SC SCH (08:21)
[2019-01-22 08:22] LABS: ALB/GLOB RATIO 1.1 (1.1-1.8); ALBUMIN 3.8 g/dL (3.0-4.8); CALCIUM 9.1 mg/dL (8.4-10.5)
--- NOTE | 2019-01-22 08:23 | CARD ---
APPROVED REPORT Date of service: 01/21/2019 EKG Measurement Heart [id number] <Conclusion> Atrial fibrillation with aberrantly conducted complexes Incomplete LBBB Pattern. Poor R Progression V Leads. Abnormal ECG
--- NOTE | 2019-01-22 08:24 | CP.PCM.PN ---
Subjective - Date & Time of Evaluation Date of Evaluation: 01/22/19 Time of Evaluation: 06:30 - Subjective Subjective: Awake, nauseous, abdominal pain Reason for consultation and follow up: Cardiac evaluation of chest pain, history of CHF, non ischemic cardiomyopathy, chronic atrial fibrillation, admitted for abdominal pain. Seen and examined by me and Dr. Thomson Objective - Vital Signs/Intake and Output Vital Signs (last 24 hours): Temp Pulse Resp BP Pulse Ox 98.2 F 63 18 103/73 96 01/22/19 05:09 01/22/19 05:09 01/22/19 05:09 01/22/19 05:09 01/22/19 05:09 Intake and Output: 01/22/19 01/22/19 06:59 18:59 Intake Total 720 Balance 720 - Medications Medications: Current Medications Allopurinol (Zyloprim) 300 mg PO DAILY [facility] Last Admin: 01/21/19 13:25 Dose: 300 mg Amylase (Pancrease 14677 U-[id number] [id number] U) 5,000 unit PO AC [facility] Last Admin: 01/21/19 17:51 Dose: Not Given Carvedilol (Coreg) 3.125 mg PO BID [facility] Last Admin: 01/21/19 17:46 Dose: 3.125 mg Colchicine (Colocrys) 0.6 mg PO DAILY [facility] Last Admin: 01/21/19 13:25 Dose: 0.6 mg Digoxin (Digoxin) 0.125 mg PO DAILY [facility] Last Admin: 01/21/19 12:28 Dose: 0.125 mg Enoxaparin Sodium (Lovenox) 120 mg SC Q24H [facility]; Protocol Stop: 01/23/19 23:59 Famotidine (Pepcid) 20 mg IVP BID [facility] Last Admin: 01/21/19 19:30 Dose: 20 mg Hydromorphone HCl (Dilaudid) 1 mg IVP Q4H PRN PRN Reason: Pain, moderate (4-7) Last Admin: 01/22/19 06:44 Dose: 1 mg Dextrose/Sodium Chloride (Dextrose 5%/0.45% Ns 1000 Ml) 1,000 mls @ 60 mls/hr IV .[id number] [facility] Last Admin: 01/21/19 12:29 Dose: 60 mls/hr Spironolactone (Aldactone) 25 mg PO BID [facility] Last Admin: 01/21/19 17:46 Dose: 25 mg - Labs Labs: 01/22/19 07:45 01/21/19 00:10 PT 14.3 SECONDS (9.4-12.5) H 01/21/19 00:10 INR 1.29 01/21/19 00:10 APTT 40.6 Seconds (26.9-38.3) H 01/21/19 00:10 - Constitutional Appears: Non-toxic, No Acute Distress - Head Exam Head Exam: NORMAL INSPECTION, NORMOCEPHALIC - Eye Exam Eye Exam: Normal appearance Pupil Exam: NORMAL ACCOMODATION - ENT Exam ENT Exam: Mucous Membranes Moist, Normal Exam - Respiratory Exam Respiratory Exam: Decreased Breath Sounds, NORMAL BREATHING PATTERN - Cardiovascular Exam Cardiovascular Exam: Irregular Rhythm, +S1, +S2 Additional comments: atrial fibrillation - GI/Abdominal Exam GI & Abdominal Exam: Soft Additional comments: abdominal pain - Extremities Exam Extremities Exam: Full ROM Additional comments: 1+ edema - Neurological Exam Neurological Exam: Alert, Awake, Oriented x3 - Psychiatric Exam Psychiatric exam: Normal Affect, Normal Mood - Skin Skin Exam: Dry, Normal Color, Warm Assessment and Plan - Assessment and Plan (Free Text) Assessment: A 38 year old morbidly obese male who came in to the [facility] with abdominal pain and chest pain. History of CHF, non ischemic cardiomyopathy, recurrent pancreatitis, COPD, history of alcohol abuse, chronic atrial fibrillation,on Eliquis. hypertension, diabetes,peptic ulcer , nephrolithiasis, post left ureteral stent, renal insufficiency. Had history of cardiac cath 2 years ago at [facility]. Denies c hest pain now. Troponin negative. Renal insufficiency resolved/improved. Will schedule for cardiac cath on . Pain management for recurrent pancreatitis. GI on consult. Plan: Complaining of abdominal pain Dilaudid PRN given Nausea, given Reglan Blood pressure controlled Heart rate stable For cardiac cath on Eliquis on hold, on Lovenox Continue current treatment GI on consult for abdominal pain Will follow up Plan and treatment discussed with Dr. Thomson
[2019-01-22] MEDS: Digoxin 125 mcg (0.125 mg) Tab PO SCH (09:45)
[2019-01-22] MEDS: Aspirin 325 mg EC Tablets PO SCH (09:48)
[2019-01-22 15:48] LABS: URINE BILIRUBIN NEGATIVE (NEGATIVE); URINE BLOOD NEGATIVE (NEGATIVE); URINE GLUCOSE (UA) NEGATIVE (NEGATIVE); URINE LEUKOCYTE ESTERASE NEGATIVE Leu/uL (NEGATIVE); URINE PROTEIN NEGATIVE mg/dL (<30 mg/dL); URINE UROBILINOGEN 0.2 E.U./dL (<1 E.U./dL)
[2019-01-22 15:49] LABS: URINE APPEARANCE CLEAR (CLEAR); URINE COLOR YELLOW (YELLOW)
--- NOTE | 2019-01-22 16:18 | PN ---
DATE: 01/22/2019 SUBJECTIVE: The patient is seen lying in bed. He is awake. He is alert. He is concerned that he has not peed. Since Monday night, he only peed at noontime today. He put out 400 mL of urine. According to the patient and nursing staff, there was about 1000 mL of urine with the bladder scanner. OBJECTIVE: GENERAL: Middle-aged male lying in bed. VITAL SIGNS: Blood pressure 116/79, heart rate 82, respiratory rate 20, temperature 97.8. HEENT: Normocephalic, atraumatic, positive pallor. NECK: Supple, no JVD. LUNGS: Bilateral equal air entry, bilateral equal expansion, no rales. CARDIAC: S1 and S2, regular rate and rhythm, no murmur, no rub. ABDOMEN: Obese, distended, soft, nontender, bowel sounds present. EXTREMITIES: No lower extremity edema. INTAKE AND OUTPUT: Not charted. LABORATORY DATA: WBC 8.9, hemoglobin 15, hematocrit 46, platelets 285. Sodium 133, potassium 4.1, chloride 99, CO2 of 22, BUN 21, creatinine 1.8, glucose 87, calcium 9.1, phosphorus 4.5, magnesium 1.9. A1c 6.3. BNP 1050. Albumin 3.8. TSH 2.9. CT of the abdomen and pelvis, no evidence of significant left hydronephrosis or hydroureter, no evidence of right renal calculus or hydronephrosis, bladder unremarkable, descending and sigmoid colon diverticulosis. CURRENT MEDICATIONS: Aldactone 25 b.i.d. , Coreg 3.125 b.i.d., digoxin 0.125 daily, Dilaudid, aspirin, Flomax, started this morning, Lovenox, , Pepcid, Plavix, Zofran, Zyloprim. Eliquis discontinued? ASSESSMENT: 1. Acute kidney injury superimposed on chronic kidney disease stage II/III, prerenal azotemia. 2. History of left hydronephrosis, left ureteral stent, removal of left ureteral stent last admission. 3. Increased urine on bladder scan. 4. Urinary retention? 5. Status post nausea, vomiting, diarrhea, dehydration. PLAN: 1. Renal and bladder ultrasound with postvoid residual. 2. Continue IV fluids for one more day. 3. Urology evaluation. 4. Urinalysis and urine culture. 5. Continue to hold Lasix. 6. Continue digoxin and Coreg. Angelica Don MD
--- NOTE | 2019-01-22 16:42 | CP.PCM.PN ---
<Devendra Suazo - Last Filed: 01/22/19 16:40> Subjective - Date & Time of Evaluation Date of Evaluation: 01/22/19 Time of Evaluation: 12:35 - Subjective Subjective: PGY4 GI fellow consult note Patient was lying in bed when seen this afternoon. Reports some nausea overnight but is tolerating diet nonetheless. Still with some abdominal pain and eager for endoscopic evaluation. Five-point review of systems negative other than stated above. Objective - Vital Signs/Intake and Output Vital Signs (last 24 hours): Temp Pulse Resp BP Pulse Ox 97.8 F 82 20 116/79 96 01/22/19 12:00 01/22/19 12:00 01/22/19 12:00 01/22/19 12:00 01/22/19 05:09 Intake and Output: 01/22/19 01/22/19 06:59 18:59 Intake Total 720 Balance 720 - Medications Medications: Current Medications Allopurinol (Zyloprim) 300 mg PO DAILY [facility] Last Admin: 01/22/19 09:45 Dose: 300 mg Amylase (Pancrease 04932 U-5000 U-42733 U) 5,000 unit PO AC [facility] Last Admin: 01/22/19 13:55 Dose: Not Given Aspirin (Ecotrin) 325 mg PO DAILY [facility] Last Admin: 01/22/19 09:48 Dose: 325 mg Carvedilol (Coreg) 3.125 mg PO BID [facility] Last Admin: 01/22/19 09:45 Dose: 3.125 mg Clopidogrel Bisulfate (Plavix) 75 mg PO DAILY [facility] Colchicine (Colocrys) 0.6 mg PO DAILY [facility] Last Admin: 01/22/19 09:45 Dose: 0.6 mg Digoxin (Digoxin) 0.125 mg PO DAILY [facility] Last Admin: 01/22/19 09:45 Dose: 0.125 mg Enoxaparin Sodium (Lovenox) 120 mg SC Q24H [facility]; Protocol Stop: 01/23/19 23:59 Last Admin: 01/22/19 08:21 Dose: 120 mg Famotidine (Pepcid) 20 mg IVP BID [facility] Last Admin: 01/22/19 09:44 Dose: 20 mg Hydromorphone HCl (Dilaudid) 1 mg IVP Q4H PRN PRN Reason: Pain, moderate (4-7) Last Admin: 01/22/19 11:12 Dose: 1 mg Dextrose/Sodium Chloride (Dextrose 5%/0.45% Ns 1000 Ml) 1,000 mls @ 60 mls/hr IV .[id number] [facility] Last Admin: 01/21/19 12:29 Dose: 60 mls/hr Ondansetron HCl (Zofran Inj) 4 mg IVP Q6H PRN PRN Reason: Nausea/Vomiting Spironolactone (Aldactone) 25 mg PO BID [facility] Last Admin: 01/22/19 09:44 Dose: 25 mg Tamsulosin HCl (Flomax) 0.4 mg PO DAILY [facility] - Labs Labs: 01/22/19 07:45 01/22/19 07:45 PT 14.3 SECONDS (9.4-12.5) H 01/21/19 00:10 INR 1.29 01/21/19 00:10 APTT 40.6 Seconds (26.9-38.3) H 01/21/19 00:10 - Constitutional Appears: Well, No Acute Distress, Other (obese) - Head Exam Head Exam: ATRAUMATIC, NORMAL INSPECTION - Eye Exam Eye Exam: EOMI. absent: Scleral icterus - ENT Exam ENT Exam: Mucous Membranes Moist. absent: Mucous Membranes Dry - Respiratory Exam Respiratory Exam: NORMAL BREATHING PATTERN. absent: Accessory Muscle Use - GI/Abdominal Exam GI & Abdominal Exam: Distended, Soft, Tenderness (mildly tender to palpation in left half of abdomen without guarding), Normal Bowel Sounds. absent: Bruit, Firm, Guarding, Rigid, Organomegaly, Pulsatile Mass Additional comments: body habitus limiting exam Assessment and Plan - Assessment and Plan (Free Text) Assessment: 38-year-old black male with obesity, nonischemic cardiomyopathy, history of pancreatitis, recurrent diverticulitis, nephrolithiasis status post stent with subsequent removal, COPD, CHF, diabetes, hypertension, atrial fibrillation on apixaban, CKD presenting with abdominal pain # Abdominal pain:suspect multifactorial in nature due to perhaps component acute on chronic pancreatitis in the setting of ongoing tobacco use. As well as possible recurrent diverticulitis given symptoms and CT images. Patient also with perinephric stranding on CT though has not produced a urinalysis yet. Plan: -Follow-up urinalysis Plan for EGD on Monday nothing by mouth at midnight supportive care, H2RA Continue pancreatic enzymes Patient seen and examined with Dr. Choe. Please see attestation for further recommendations/changes <Souleymane Choe V - Last Filed: 01/22/19 23:01> Objective - Vital Signs/Intake and Output Vital Signs (last 24 hours): Temp Pulse Resp BP Pulse Ox 97.4 F L 73 20 135/84 96 01/22/19 18:00 01/22/19 22:00 01/22/19 18:00 01/22/19 18:00 01/22/19 18:00 Intake and Output: 01/22/19 01/23/19 18:59 06:59 Intake Total 600 Output Total 850 Balance -250 - Medications Medications: Current Medications Allopurinol (Zyloprim) 300 mg PO DAILY [facility] Last Admin: 01/22/19 09:45 Dose: 300 mg Amylase (Pancrease 93697 U-5000 U-40853 U) 5,000 unit PO AC [facility] Last Admin: 01/22/19 17:23 Dose: Not Given Aspirin (Ecotrin) 325 mg PO DAILY [facility] Last Admin: 01/22/19 09:48 Dose: 325 mg Carvedilol (Coreg) 3.125 mg PO BID [facility] Last Admin: 01/22/19 17:23 Dose: 3.125 mg Clopidogrel Bisulfate (Plavix) 75 mg PO DAILY [facility] Colchicine (Colocrys) 0.6 mg PO DAILY [facility] Last Admin: 01/22/19 09:45 Dose: 0.6 mg Digoxin (Digoxin) 0.125 mg PO DAILY [facility] Last Admin: 01/22/19 09:45 Dose: 0.125 mg Enoxaparin Sodium (Lovenox) 120 mg SC Q24H [facility]; Protocol Stop: 01/23/19 23:59 Last Admin: 01/22/19 08:21 Dose: 120 mg Famotidine (Pepcid) 20 mg IVP BID [facility] Last Admin: 01/22/19 17:24 Dose: 20 mg Hydromorphone HCl (Dilaudid) 1 mg IVP Q4H PRN PRN Reason: Pain, moderate (4-7) Last Admin: 01/22/19 21:23 Dose: 1 mg Dextrose/Sodium Chloride (Dextrose 5%/0.45% Ns 1000 Ml) 1,000 mls @ 60 mls/hr IV .[id number] [facility] Last Admin: 04/23/19 21:24 Dose: 60 mls/hr Ondansetron HCl (Zofran Inj) 4 mg IVP Q6H PRN PRN Reason: Nausea/Vomiting Last Admin: 01/22/19 21:24 Dose: 4 mg Spironolactone (Aldactone) 25 mg PO BID [facility] Last Admin: 01/22/19 17:23 Dose: 25 mg Tamsulosin HCl (Flomax) 0.4 mg PO DAILY [facility] Last Admin: 01/22/19 14:15 Dose: 0.4 mg - Labs Labs: 01/22/19 07:45 01/22/19 07:45 PT 14.3 SECONDS (9.4-12.5) H 01/21/19 00:10 INR 1.29 01/21/19 00:10 APTT 40.6 Seconds (26.9-38.3) H 01/21/19 00:10 Attending/Attestation - Attestation I have personally seen and examined this patient.: Yes I have fully participated in the care of the patient.: Yes I have reviewed all pertinent clinical information, including history, physical exam and plan: Yes Notes (Text): This patient was seen and evaluated along with the GI fellow earlier. Feeling slightly better. Patient scheduled for cardiac cath. Patient would benefit from the endoscopy evaluation. Patient is scheduled for cardiac cath. We will discuss with the cardiologY Continue the empiric antibiotic coverage for possible early diverticulitis. Continue PPI. 01/22/19 22:59
--- NOTE | 2019-01-22 17:12 | PN ---
DATE: 01/22/2019 SUBJECTIVE: The patient is 38 years old, seen and examined, complained of feeling nauseous. He states he could not get his Zofran, because he was drowsy and QTC interval is prolonged. He also is having difficulty voiding. He states since he came to the hospital, he did not void, although he has been drinking fluid. This morning, he has done that shows urine 990 mL; however, he voided almost 350 mL urine. Before I walked in to examine the patient, he does complain of shortness of breath. He complained of flank pain and epigastric pain. PHYSICAL EXAMINATION GENERAL: He is awake and alert, able to communicate, and ambulatory. VITAL SIGNS: He is afebrile, pulse 63, respirations 18, and blood pressure 104/71. LUNGS: Bilateral fair airflow. No rhonchi or crackles. HEART: S1 and S2 audible. ABDOMEN: Soft, obese, and nontender. No rebound. No guarding. NEUROLOGIC: The patient is awake and alert, able to communicate, and ambulatory. EXTREMITIES: Bilateral legs, no edema. LABORATORY DATA: WBC is 8.9, hemoglobin 15, hematocrit 46, and platelets 285. PT 14.3 and INR 1.29. Chemistry; sodium 133, potassium 4.1, chloride 99, CO2 of 22, BUN 21, creatinine 1.8, and blood sugar of 87. BNP is 1050. TSH is 2.93. ASSESSMENT 1. Intractable nausea and vomiting. 2. History of recurrent pancreatitis. 3. Hypertensive cardiomyopathy. 4. Renovascular disease. 5. Nonischemic cardiomyopathy. 6. History of chronic obstructive pulmonary disease with history of active smoking. 7. History of alcohol abuse in the past. 8. Chronic atrial fibrillation. 9. History of peptic ulcer disease. 10. History of left hydronephrosis, had ureteral stent placed, but was recently removed by Dr. Summers. PLAN: We will continue the patient on IV fluid, monitor his CBC and CMP. Continue on IV fluid. He is on analgesic. He is on liquid diet. I spoke to Dr. Thomson, who looked at the patient's EKG, and if QTC interval is found to be normal, we will give him Zofran as needed. We will start him on Flomax, and I will also request Dr. Summers to evaluate the patient. Follow up the patient in a.m. Sammy Santiago MD
[2019-01-23] MEDS: HYDROmorphone 1 mg/ml ISec IVP PRN ×5 (01:37→21:46)
--- NOTE | 2019-01-23 07:53 | CP.PCM.PN ---
Subjective - Date & Time of Evaluation Date of Evaluation: 01/23/19 Time of Evaluation: 06:35 - Subjective Subjective: Awake, no distress, complaining of low urine output Reason for consultation and follow up: Cardiac evaluation of chest pain, history of CHF, non ischemic cardiomyopathy, chronic atrial fibrillation, admitted for abdominal pain. Seen and examined by me and Dr. Thomson Objective - Vital Signs/Intake and Output Vital Signs (last 24 hours): Temp Pulse Resp BP Pulse Ox 97.4 F L 76 19 113/60 96 01/23/19 06:00 01/23/19 06:00 01/23/19 06:00 01/23/19 06:00 01/23/19 06:00 Intake and Output: 01/23/19 01/23/19 06:59 18:59 Intake Total 1800 Output Total 1150 Balance 650 - Medications Medications: Current Medications Allopurinol (Zyloprim) 300 mg PO DAILY [facility] Last Admin: 01/22/19 09:45 Dose: 300 mg Amylase (Pancrease 73102 U-5000 U-67229 U) 5,000 unit PO AC [facility] Last Admin: 01/22/19 17:23 Dose: Not Given Aspirin (Ecotrin) 325 mg PO DAILY [facility] Last Admin: 01/22/19 09:48 Dose: 325 mg Carvedilol (Coreg) 3.125 mg PO BID [facility] Last Admin: 01/22/19 17:23 Dose: 3.125 mg Clopidogrel Bisulfate (Plavix) 75 mg PO DAILY [facility] Colchicine (Colocrys) 0.6 mg PO DAILY [facility] Last Admin: 01/22/19 09:45 Dose: 0.6 mg Digoxin (Digoxin) 0.125 mg PO DAILY [facility] Last Admin: 01/22/19 09:45 Dose: 0.125 mg Enoxaparin Sodium (Lovenox) 120 mg SC Q24H [facility]; Protocol Stop: 01/23/19 23:59 Last Admin: 01/22/19 08:21 Dose: 120 mg Famotidine (Pepcid) 20 mg IVP BID [facility] Last Admin: 01/22/19 17:24 Dose: 20 mg Hydromorphone HCl (Dilaudid) 1 mg IVP Q4H PRN PRN Reason: Pain, moderate (4-7) Last Admin: 01/23/19 05:58 Dose: 1 mg Dextrose/Sodium Chloride (Dextrose 5%/0.45% Ns 1000 Ml) 1,000 mls @ 60 mls/hr IV .[id number] [facility] Last Admin: 01/22/19 21:24 Dose: 60 mls/hr Ondansetron HCl (Zofran Inj) 4 mg IVP Q6H PRN PRN Reason: Nausea/Vomiting Last Admin: 01/22/19 21:24 Dose: 4 mg Spironolactone (Aldactone) 25 mg PO BID [facility] Last Admin: 01/22/19 17:23 Dose: 25 mg Tamsulosin HCl (Flomax) 0.4 mg PO DAILY [facility] Last Admin: 01/22/19 14:15 Dose: 0.4 mg - Labs Labs: 01/22/19 07:45 01/22/19 07:45 PT 14.3 SECONDS (9.4-12.5) H 01/21/19 00:10 INR 1.29 01/21/19 00:10 APTT 40.6 Seconds (26.9-38.3) H 01/21/19 00:10 - Constitutional Appears: Non-toxic, No Acute Distress - Head Exam Head Exam: NORMAL INSPECTION, NORMOCEPHALIC - Eye Exam Eye Exam: Normal appearance Pupil Exam: NORMAL ACCOMODATION - ENT Exam ENT Exam: Mucous Membranes Moist - Neck Exam Neck Exam: Full ROM, Normal Inspection - Respiratory Exam Respiratory Exam: Decreased Breath Sounds, Clear to Ausculation Bilateral, NORMAL BREATHING PATTERN - Cardiovascular Exam Cardiovascular Exam: Irregular Rhythm, +S1, +S2 Additional comments: atrial fibrillation 70's - GI/Abdominal Exam GI & Abdominal Exam: Distended, Soft, Hypoactive Bowel Sounds - Extremities Exam Extremities Exam: Full ROM Additional comments: 1+edema - Neurological Exam Neurological Exam: Alert, Awake, Oriented x3 - Psychiatric Exam Psychiatric exam: Normal Affect, Normal Mood - Skin Skin Exam: Dry, Normal Color, Warm Assessment and Plan - Assessment and Plan (Free Text) Assessment: A 38 year old morbidly obese male who came in to the Er with abdominal pain and chest pain. History of CHF, non ischemic cardiomyopathy, recurrent pancreatitis, COPD, history of alcohol abuse, chronic atrial fibrillation,on Eliquis. hypertension, diabetes,peptic ulcer , nephrolithiasis, post left ureteral stent, renal insufficiency. [place] [facility] [place] done on 04/2018 showed four chamber dilatation, LVEF 30-35%, cardiomyopathy, moderate MR/TR, RVSP 51 mmHg.Denies chest pain now. Troponin negative. Renal insufficiency resolved/improved. Will schedule for cardiac cath . Pain management for recurrent pancreatitis. GI on consult. Cleared for procedure with moderate risk considering co morbidities. For EGD today. Renal scan done pending results. For cardiac cath tomorrow, IV hydration prior to procedure. Plan: Complaining of abdominal pain EGD today GI on consult Dilaudid PRN given Blood pressure controlled Heart rate stable For cardiac cath on Gentle IV hydration for procedure Eliquis on hold, on Lovenox Continue current treatment Complaining of low urine output Renal on consult Will follow up Plan and treatment discussed with Dr. Thomson
[2019-01-23 07:57] LABS: BLOOD UREA NITROGEN 18 mg/dL (7-21); GFR NON-AFRICAN AMERICAN 52
--- NOTE | 2019-01-23 08:41 | US ---
Renal ultrasound Urinary bladder/residual urine ultrasound Indication: urinary retention? Comparison: None available Findings: Examination limited by habitus. The right kidney measures 12.7 x 7.8 x 7.4 cm and is without evidence of stones or hydronephrosis. Cortical thinning. The left kidney measures 9.6 x 6.5 x 5.2 cm and is without evidence of stones or hydronephrosis. Cortical thinning. Prevoid urinary bladder: 8.2 x 7.4 x 7.6 cm, calculated volume 321.5 mL Postvoid urinary bladder: 7.8 x 6.3 x 6.7 cm, calculated volume 171.3 mL Bilateral ureteral jets are not identified. No evidence of urinary bladder wall thickening. No evidence of urinary bladder calculi. No significant pelvic free fluid identified. Impression: No evidence of hydronephrosis or obstructing calculus. Bilateral renal cortical thinning. Prevoid urinary bladder: 321.5 mL Postvoid urinary bladder: 171.3 mL Bilateral ureteral jets are not identified.
[2019-01-23] MEDS: Amylase/Lipase/Protease 5,000 Units ECC PO SCH ×2 (08:44→19:08)
[2019-01-23] MEDS: Digoxin 125 mcg (0.125 mg) Tab PO SCH (10:00)
[2019-01-23] MEDS: Aspirin 325 mg EC Tablets PO SCH (10:00)
--- NOTE | 2019-01-23 15:11 | PN ---
DATE: 01/23/2019 SUBJECTIVE: The patient is 38 years old, seen and examined, complained of left flank pain, complained of epigastric discomfort; n.p.o. for endoscopy later on today. The patient was able to void since yesterday multiple times; however, he does complain that his urine output has significantly reduced. The patient states he has not been eating and drinking that good. PHYSICAL EXAMINATION: GENERAL: He is awake, alert, oriented, and communicative. VITAL SIGNS: He is afebrile, pulse 59, respiration 19, and blood pressure 130/60. LUNGS: Bilateral fair airflow. No rhonchi or crackle. HEART: S1 and S2 audible. ABDOMEN: Soft, obese, and nontender. No rebound. No guarding. NEUROLOGIC: The patient is awake and alert; able to communicate. LABORATORY DATA: Sodium 134, potassium 3.9, chloride 100, CO2 of 22, BUN 18, creatinine 1.5, and blood sugar of 86. ASSESSMENT: 1. Abdominal pain, multifactorial. 2. Chronic kidney disease. 3. Ischemic cardiomyopathy. 4. Recurrent pancreatitis. 5. Gastritis. 6. Morbid obesity. 7. Status post cholecystectomy. PLAN: We will continue the patient on current medications. Continue IV fluid, analgesic as needed. The patient is scheduled to have endoscopy done today. Sammy Santiago MD
[2019-01-23] MEDS ORDERED: Midazolam 2 MG/2 ML VIAL ONE (15:32)
[2019-01-23] MEDS ORDERED: Propofol 10 mg/ml Inj (20 ML) ONE (15:32)
[2019-01-23] MEDS ORDERED: Sodium Chloride 0.9% 1,000 ML IV SCH (16:00)
[2019-01-23] MEDS: Enoxaparin 120 mg Syringe SC SCH (18:49)
--- NOTE | 2019-01-23 20:07 | PN ---
DATE: 01/23/2019 SUBJECTIVE: The patient is seen lying in bed. He is awake. He is alert. He complains of decreased urine output. He is very concerned about his decreased urine output. PHYSICAL EXAMINATION: GENERAL: Obese middle-aged male lying in bed. VITAL SIGNS: Blood pressure 130/97, heart rate 68, respiratory rate 16, and temperature 97.4. HEENT: Normocephalic and atraumatic. Positive pallor. NECK: Supple. No JVD. LUNGS: Bilateral equal air entry, bilateral equal expansion. CARDIAC: S1 and S2. Regular rate and rhythm. No murmur. No rub. ABDOMEN: Obese, distended, soft, and nontender. Bowel sounds present. EXTREMITIES: No lower extremity edema. INTAKE AND OUTPUT: 1800/1150. LABORATORY DATA: WBC 8.9, hemoglobin 15, hematocrit 46, and platelets 285. Sodium 134, potassium 3.9, chloride 100, CO2 of 22, BUN 18, creatinine 1.5, glucose 86, and calcium 9. Urinalysis; yellow clear, pH of 6, specific gravity 1.025, and no proteinuria. Endoscopy scattered mild inflammation characterized by erythema in the entire stomach, no gross lesions in the duodenal bulb. Renal ultrasound, no hydronephrosis, left kidney smaller than the right, cortical thinning bilaterally. Minimal postvoid residual. CURRENT MEDICATIONS: Aldactone 25 b.i.d., Colcrys 0.6, Coreg 3.125 b.i.d., D5 half normal saline at 60, digoxin 0.125 daily, Dilaudid, Ecotrin, Flomax, Lovenox, Pepcid, Plavix, Zofran, and Zyloprim. ASSESSMENT: 1. Resolved acute kidney injury, mild prerenal azotemia. 2. Nausea, vomiting, and abdominal pain. 3. Hypertension. 4. Atrial fibrillation. 5. Chronic pain/narcotic dependence. PLAN: 1. Discontinue IV fluids in a.m. 2. Continue to hold Lasix. 3. The patient is reassured regarding normal renal ultrasound, normal bladder ultrasound, explained to him that decreased urine output is because of dehydration. Angelica Don MD [facility] # [id number]
--- NOTE | 2019-01-23 20:19 | PCM.URO ---
Urology Progress Note - Subjective Abdominal Pain: Yes (full note to be dictated: double flomax) - Objective Lab Results Last 24 Hours: Laboratory Results - last 24 hr 01/23/19 07:10 Sodium 134 Potassium 3.9 Chloride 100 Carbon Dioxide 22 Anion Gap 16 BUN 18 Creatinine 1.5 Est GFR ( Amer) > 60 Est GFR (Non-Af Amer) 52 Random Glucose 86 Calcium 9.0 Intake & Output: Intake & Output 01/23/19 01/23/19 01/24/19 06:59 18:59 06:59 Intake Total 1800 0 Output Total 1150 400 Balance 650 -400 Intake: IV 720 Right Antecubital 720 Oral 1080 0 Output: Urine 1150 400 Urine, Voided 1150 400 Other: # Voids Urine, Voided 2 # Bowel Movements 1 0 Vital Signs: Vital Signs - 24 hr 01/22/19 01/22/19 01/23/19 22:00 23:56 02:00 Temperature 98.0 F Pulse Rate 73 69 65 Respiratory 18 Rate Blood Pressure 138/83 O2 Sat by Pulse 95 Oximetry 01/23/19 01/23/19 01/23/19 06:00 10:00 12:00 Temperature 97.4 F L 97.7 F Pulse Rate 59 L 74 66 Respiratory 19 24 Rate Blood Pressure 113/60 120/77 O2 Sat by Pulse 96 Oximetry 01/23/19 01/23/19 01/23/19 14:00 15:25 15:54 Temperature 98 F 97.4 F L Pulse Rate 66 69 88 Respiratory 16 16 Rate Blood Pressure 130/66 117/60 O2 Sat by Pulse 96 99 Oximetry 01/23/19 01/23/19 01/23/19 16:05 16:20 19:04 Temperature 97.4 F L 97.4 F L Pulse Rate 81 68 66 Respiratory 16 16 Rate Blood Pressure 124/88 130/97 H 104/69 O2 Sat by Pulse 99 97 Oximetry
[2019-01-23] MEDS: Dextrose 5%/0.45% NS 1,000 ML IV SCH (21:47)
[2019-01-24] MEDS: HYDROmorphone 1 mg/ml ISec IVP PRN ×5 (01:30→21:30)
[2019-01-24] MEDS ORDERED: Sodium Chloride 0.9% 1,000 ML IV SCH ×2 (07:30→12:15)
[2019-01-24] MEDS: Amylase/Lipase/Protease 5,000 Units ECC PO SCH ×3 (07:32→17:26)
[2019-01-24] MEDS: Dextrose 5%/0.45% NS 1,000 ML IV SCH (08:29)
[2019-01-24] MEDS: Digoxin 125 mcg (0.125 mg) Tab PO SCH (09:10)
[2019-01-24] MEDS: Aspirin 325 mg EC Tablets PO SCH (09:11)
--- NOTE | 2019-01-24 09:11 | CP.PCM.PN ---
Subjective - Date & Time of Evaluation Date of Evaluation: 01/24/19 Time of Evaluation: 06:35 - Subjective Subjective: Awake, no distress,denies shortness of breath Reason for consultation and follow up: Cardiac evaluation of chest pain, history of CHF, non ischemic cardiomyopathy, chronic atrial fibrillation, admitted for abdominal pain. Seen and examined by me and Dr. Thomson Objective - Vital Signs/Intake and Output Vital Signs (last 24 hours): Temp Pulse Resp BP Pulse Ox 97.5 F L 70 20 117/79 98 01/24/19 05:59 01/24/19 05:59 01/24/19 05:59 01/24/19 05:59 01/24/19 05:59 Intake and Output: 01/24/19 01/24/19 06:59 18:59 Intake Total 1200 Output Total 500 Balance 700 - Medications Medications: Current Medications Allopurinol (Zyloprim) 300 mg PO DAILY [facility] Last Admin: 01/23/19 21:45 Dose: 300 mg Amylase (Pancrease 82816 U-5000 U-11908 U) 5,000 unit PO AC [facility] Last Admin: 01/24/19 07:32 Dose: Not Given Aspirin (Ecotrin) 325 mg PO DAILY [facility] Last Admin: 01/23/19 10:00 Dose: 325 mg Carvedilol (Coreg) 3.125 mg PO BID [facility] Last Admin: 01/23/19 19:04 Dose: 3.125 mg Clopidogrel Bisulfate (Plavix) 75 mg PO DAILY [facility] Last Admin: 01/23/19 18:50 Dose: 75 mg Colchicine (Colocrys) 0.6 mg PO DAILY [facility] Last Admin: 01/23/19 21:46 Dose: 0.6 mg Digoxin (Digoxin) 0.125 mg PO DAILY [facility] Last Admin: 01/23/19 10:00 Dose: Not Given Famotidine (Pepcid) 20 mg IVP BID [facility] Last Admin: 01/23/19 18:50 Dose: 20 mg Hydromorphone HCl (Dilaudid) 1 mg IVP Q4H PRN PRN Reason: Pain, moderate (4-7) Last Admin: 01/24/19 05:36 Dose: 1 mg Sodium Chloride (Sodium Chloride 0.9%) 1,000 mls @ 100 mls/hr IV .Q10H [facility] Ondansetron HCl (Zofran Inj) 4 mg IVP Q6H PRN PRN Reason: Nausea/Vomiting Last Admin: 01/24/19 05:36 Dose: 4 mg Spironolactone (Aldactone) 25 mg PO BID [facility] Last Admin: 01/23/19 18:50 Dose: 25 mg Tamsulosin HCl (Flomax) 0.4 mg PO DAILY [facility] - Labs Labs: 01/22/19 07:45 01/23/19 07:10 PT 14.3 SECONDS (9.4-12.5) H 01/21/19 00:10 INR 1.29 01/21/19 00:10 APTT 40.6 Seconds (26.9-38.3) H 01/21/19 00:10 - Constitutional Appears: Non-toxic, No Acute Distress - Head Exam Head Exam: NORMAL INSPECTION, NORMOCEPHALIC - Eye Exam Eye Exam: Normal appearance Pupil Exam: NORMAL ACCOMODATION - ENT Exam ENT Exam: Mucous Membranes Moist, Normal Exam - Respiratory Exam Respiratory Exam: Decreased Breath Sounds, Clear to Ausculation Bilateral, NORMAL BREATHING PATTERN - Cardiovascular Exam Cardiovascular Exam: Irregular Rhythm, +S1, +S2 Additional comments: atrial fibrillation 70's - GI/Abdominal Exam GI & Abdominal Exam: Soft, Hypoactive Bowel Sounds - Extremities Exam Extremities Exam: Full ROM Additional comments: 1+edema - Neurological Exam Neurological Exam: Alert, Awake, Oriented x3 - Psychiatric Exam Psychiatric exam: Depressed - Skin Skin Exam: Dry, Normal Color, Warm Assessment and Plan - Assessment and Plan (Free Text) Assessment: A 38 year old morbidly obese male who came in to the Er with abdominal pain and chest pain. History of CHF, non ischemic cardiomyopathy, recurrent pancreatitis, COPD, history of alcohol abuse, chronic atrial fibrillation,on Eliquis. hypertension, diabetes,peptic ulcer , nephrolithiasis, post left ureteral stent, renal insufficiency. Had history of cardiac cath 2 years ago at [facility] [place] Echo done on 04/2018 showed four chamber dilatation, LVEF 30-35%, cardiomyopathy, moderate MR/TR, RVSP 51 mmHg.Denies chest pain now. Troponin negative. Renal insufficiency resolved/improved. Will schedule for cardiac cath . Pain management for recurrent pancreatitis. GI on consult. Renal scan done and showed no evidence of hydronephrosis, no obstructing calculi, bilateral cortical thinning. EGD done yesterday with results of gastritis. For cardiac catheterization today.No distress. Plan: No distress For cardiac cath on today Blood pressure controlled Heart rate stable GI on consult Dilaudid PRN given Will resume Eliquis after cardiac cath Continue current treatment GI/Renal on consult Urology on consult Further recommendations post cardiac cath. Will follow up Plan and treatment discussed with Dr. Thomson
[2019-01-24] MEDS ORDERED: Lidocaine PF 2% (5 ml) Inj (For Cardiac Arrhy) ONE (11:15)
[2019-01-24] MEDS ORDERED: Iohexol 350mgl/ml 50 ML ONE (11:15)
[2019-01-24] MEDS ORDERED: Iodixanol 320 MG/ML 100 ML BOTTLE IV ONE (11:15)
[2019-01-24] MEDS ORDERED: Nitroglycerin 50mg in D5W 50 MG/250 ML BOTTLE IV ONE (11:16)
[2019-01-24] MEDS ORDERED: Iodixanol 320 MG/ML 200 ML BOTTLE IV ONE (11:16)
[2019-01-24] MEDS ORDERED: Verapamil 2 ML ONE (11:17)
--- NOTE | 2019-01-24 11:19 | CP.PCM.PN ---
Subjective - Date & Time of Evaluation Date of Evaluation: 01/24/19 Time of Evaluation: 05:00 - Subjective Subjective: S:Patient was seen at bedside He was not able to pass urine. Bladder scan showed fullness of bladder. Pertinent medical record was reviewed. O:VSS. Not in acute distress. Abdoment :No distension. A: Urinary retention. P:Straight catherization. Objective - Vital Signs/Intake and Output Vital Signs (last 24 hours): Temp Pulse Resp BP Pulse Ox 97.5 F L 77 20 101/58 L 98 01/24/19 05:59 01/24/19 09:11 01/24/19 05:59 01/24/19 09:11 01/24/19 05:59 Intake and Output: 01/24/19 01/24/19 06:59 18:59 Intake Total 1200 Output Total 500 Balance 700 - Medications Medications: Current Medications Allopurinol (Zyloprim) 300 mg PO DAILY [facility] Last Admin: 01/23/19 21:45 Dose: 300 mg Amylase (Pancrease 66112 U-5000 U-48109 U) 5,000 unit PO AC [facility] Last Admin: 01/24/19 07:32 Dose: Not Given Aspirin (Ecotrin) 325 mg PO DAILY [facility] Last Admin: 01/24/19 09:11 Dose: 325 mg Carvedilol (Coreg) 3.125 mg PO BID [facility] Last Admin: 01/24/19 09:11 Dose: 3.125 mg Clopidogrel Bisulfate (Plavix) 75 mg PO DAILY [facility] Last Admin: 01/24/19 09:10 Dose: 75 mg Colchicine (Colocrys) 0.6 mg PO DAILY [facility] Last Admin: 01/23/19 21:46 Dose: 0.6 mg Digoxin (Digoxin) 0.125 mg PO DAILY [facility] Last Admin: 01/24/19 09:10 Dose: 0.125 mg Famotidine (Pepcid) 20 mg IVP BID [facility] Last Admin: 01/23/19 18:50 Dose: 20 mg Hydromorphone HCl (Dilaudid) 1 mg IVP Q4H PRN PRN Reason: Pain, moderate (4-7) Last Admin: 01/24/19 09:37 Dose: 1 mg Sodium Chloride (Sodium Chloride 0.9%) 1,000 mls @ 100 mls/hr IV .Q10H [facility] Last Admin: 01/24/19 09:37 Dose: 100 mls/hr Ondansetron HCl (Zofran Inj) 4 mg IVP Q6H PRN PRN Reason: Nausea/Vomiting Last Admin: 01/24/19 05:36 Dose: 4 mg Spironolactone (Aldactone) 25 mg PO BID [facility] Last Admin: 01/24/19 09:10 Dose: 25 mg Tamsulosin HCl (Flomax) 0.4 mg PO DAILY [facility] - Labs Labs: 01/22/19 07:45 01/23/19 07:10 PT 14.3 SECONDS (9.4-12.5) H 01/21/19 00:10 INR 1.29 01/21/19 00:10 APTT 40.6 Seconds (26.9-38.3) H 01/21/19 00:10
[2019-01-24] MEDS ORDERED: Midazolam 2 MG/2 ML VIAL ONE (11:47)
[2019-01-24] MEDS ORDERED: Bacitracin 500 Units/gm Oint Foilpak UD TOP ONE (12:15)
--- NOTE | 2019-01-24 12:40 | CPOSTOP ---
DATE: 01/24/2019 CARDIOVASCULAR LAB POST PROCEDURE NOTE PHYSICIAN: Shayna Thomson MD [place] ACTOR: Katrin James, cytogenetic technician. TYPE OF ANESTHESIA: Moderate conscious sedation. Total 2 mg of Versed and 100 of fentanyl given. PRE-PROCEDURE DIAGNOSES: Unstable angina, recurrent admission with chest pain. PROCEDURE PERFORMED: Left heart catheterization. FINDINGS: Normal coronaries, decreased LV function. FINAL DIAGNOSES: Normal coronaries, non-ischemic cardiomyopathy. POST PROCEDURE CONDITION: The patient's condition is stable. VASCULAR ACCESS SITE: Left radial. CLOSURE DEVICE: TR-band. TOTAL RADIATION DOSE: 7365.0 milligray unit. TOTAL CUMULATIVE DOSE: 1020 milligray unit. FLUORO TIME: 2.4 minutes. CONTRAST USED: 35 mL used. Shayna Thomson MD
--- NOTE | 2019-01-24 13:27 | PN ---
DATE: 01/24/2019 SUBJECTIVE: The patient is 38-year-old, seen and examined. Still complaint of epigastric pain. Complaint of shortness of breath. Leg swelling sees to be improving. Had endoscopy done yesterday. Shows mild gastritis, otherwise no mass seen, no ulcer seen. PHYSICAL EXAMINATION: VITAL SIGNS: He is febrile. Pulse 77, respiration 20 and blood pressure . LUNGS: Bilateral fair airflow. No rhonchi or crackle. HEART: S1 and S2, audible. ABDOMEN: Soft, obese and nontender. No rebound. No guarding. NEUROLOGIC: He is awake, alert and able to communicate. EXTREMITIES: Bilateral leg, no weakness. No numbness. LABORATORY DATA: Urine cultures are negative. ASSESSMENT: 1. Abdominal pain, etiology unclear. 2. History of hypertension. Currently running hypotensive. 3. History of peptic ulcer disease. Followup CT scan and followup endoscopy. Negative for any active ulcer. 4. History of nephrolithiasis. 5. Status post cholecystectomy. 6. History of gout. PLAN: Currently, the patient is stable. He is going for cardiac cath and to rule out any underlying ischemia. We will monitor him for next 24 hour, waiting cath report. We will discuss with Dr. Choe no further treatment from his point of view. We will get cath report and we will discuss with Dr. Thomson for further management and plan. Possible discharge in a.m. Sammy Santiago MD
[2019-01-24] MEDS ORDERED: Bacitracin 500 Units/gm Oint Foilpak UD ONE (14:51)
--- NOTE | 2019-01-24 14:57 | PN ---
DATE: 01/24/2019 SUBJECTIVE: The patient is seen sitting in bed. He is awake, he is alert and he is comfortable. He just had a cardiac cath. Nonobstructive CAD. OBJECTIVE: GENERAL: Morbidly obese young male sitting in bed. VITAL SIGNS: Blood pressure 101/58, heart rate 77, respiratory rate 20, temperature 97.5. HEENT: Normocephalic, atraumatic, positive pallor. NECK: Supple, no JVD. LUNGS: Bilateral equal entry, bilateral equal expansion. CARDIAC: S1 and S2, regular rate and rhythm, no murmur, no rub. ABDOMEN: Obese, distended, soft, nontender, bowel sounds present. EXTREMITIES: No lower extremity edema. LABORATORY DATA: WBC 8.9, hemoglobin 15, hematocrit 46, platelets 285. Sodium 134, potassium 3.9, chloride 100, CO2 of 22, BUN 18, creatinine 1.5, glucose 86, calcium 9.0. ASSESSMENT: 1. Stable chronic kidney disease, stage II/III 2. Resolved prerenal azotemia. 3. Resolved nausea, vomiting and diarrhea. 4. Hypertension, well controlled. 5. Atrial fibrillation. 6. History of left hydronephrosis/left ureteral stent, now status post stent removal. PLAN: 1. Continue current antihypertensives. 2. Discontinue IV fluids after current bag. 3. Discharge planning. Angelica Don MD
--- NOTE | 2019-01-24 17:55 | CARD ---
APPROVED REPORT Date of service: 01/24/2019 Procedure(s) performed: Left Heart Catheterization HISTORY The patient is a 38 year-old male with a history of : previous CHF, chronic lung disease, previous diagnostic cath, tobacco history() : The patient is a current smoker , hypertension , dyslipidemia , Morbidly obese male with recurrent admission with pancratitis secondary to ETOH abuse, recurrent CHF, CKD, multiple admission with chest pain and recurrent CHF.. INDICATION The indication(s) include : chest pain, dyspnea. CASE TECHNIQUE The patient was brought urgently to the Cardiac Catheterization Laboratory in a fasting state and was prepped and draped in a sterile manner. The left wrist was infiltrated with 2% Lidocaine subcutaneous anesthesia. A 6FR GLIDESHEATH ACCESS KIT sheath was inserted into the left radial artery without difficulty. Coronary angiography was performed using coronary diagnostic catheters. The left coronary system was accessed and visualized with a Diagnostic ,5F JL 4 CATH DXT 100 CM catheter. The right coronary system was accessed and visualized with a Diagnostic ,5F JR 4 CATH DXT 100 CM catheter. The left ventricle was accessed and visualized with a 5F PIGTAIL 145 CATH DXT 110 CM catheter. Left ventricular/Aortic Valve gradient assessed on pullback. Left ventriculogram was performed in SANDOVAL projection. Closure device was deployed with a Fr TR Band (Large) without any complications. The patient tolerated the procedure well and there were no complications associated with the procedure. Vessel Analysis The patient's coronary anatomy is right dominant. The left main coronary artery is a large size vessel . The left main bifurcates to the left anterior descending and circumflex. The left anterior descending artery is a medium size vessel without significant stenosis. The first diagonal branch is a medium size vessel with intimal irregularities and without significant stenosis. The circumflex artery is a medium size vessel with intimal irregularities and without significant stenosis. The first obtuse marginal branch is a medium size vessel with intimal irregularities and without significant stenosis. The ramus intermedius artery is a medium size vessel with intimal irregularities. The right coronary artery is a large size vessel without significant stenosis. The right posterior descending artery is a medium size vessel with diffuse calcification noted throughout this vessel and without significant stenosis. Left Ventricle The left ventricle is enlarged in size with moderately decreased contractility. Non-Ischemic cardiomyopathy. The left ventricular ejection fraction is estimated to be 30-35%. The left ventricular end diastolic pressure is 20-22 mmHg. There was no gradient across the aortic valve upon pullback. Conclusion Normal coronaries Non Ischemic CMP, EF-30-35 ( hand injection, can not comment on MR and accurate EF b/c of hand injection). Morbid Obesity. Recommendations Aggressive Medical TherapyCardiac Risk Reduction Program Weight Loss Reduction Program At least 50-100 lbs wt reduction MUGA to assess LV FX. CC; Morenita Carrillo MD.
[2019-01-24 19:03] VITALS: RESP 20
[2019-01-25 02:31] VITALS: TEMP 97.9
[2019-01-25] MEDS: HYDROmorphone 1 mg/ml ISec IVP PRN ×4 (02:56→16:05)
[2019-01-25 07:09] LABS: BASO # 0.01 K/mm3 (0.0-2.0); BASO % 0.1 % (0.0-3.0); EOS # 0.2 (0.0-0.7); EOS % 2.4 % (1.5-5.0); HEMOGLOBIN 15.4 g/dL (14.0-18.0); LYMPH # 2.3 (1.2-3.4); LYMPH % 34.6 % (22.0-35.0); MEAN CELL VOLUME 93.2 fl (80.0-105.0); MEAN CORPUSCULAR HEMOGLOBIN 30.8 pg (25.0-35.0); MEAN PLATELET VOLUME 11.4 fl (7.0-11.0); MONO # 0.6 (0.1-0.6); MONO % 8.4 % (1.0-6.0); RED CELL DISTRIBUTION WIDTH 16.6 % (11.5-14.5); WHITE BLOOD COUNT 6.7 10^3/uL (4.5-11.0)
[2019-01-25 07:31] LABS: BLOOD UREA NITROGEN 11 mg/dL (7-21); CALCIUM 9.4 mg/dL (8.4-10.5); GFR NON-AFRICAN AMERICAN 56
--- NOTE | 2019-01-25 08:28 | CP.PCM.PN ---
Subjective - Date & Time of Evaluation Date of Evaluation: 01/25/19 Time of Evaluation: 06:45 - Subjective Subjective: Awake, no distress,denies shortness of breath, Reason for consultation and follow up: Cardiac evaluation of chest pain, history of CHF, non ischemic cardiomyopathy, chronic atrial fibrillation, admitted for abdominal pain, post cardiac cath Seen and examined by me and Dr. Thomson Objective - Vital Signs/Intake and Output Vital Signs (last 24 hours): Temp Pulse Resp BP Pulse Ox 97.9 F 80 20 118/79 96 01/25/19 00:01 01/25/19 06:00 01/25/19 06:00 01/25/19 06:00 01/25/19 06:00 Intake and Output: 01/25/19 01/25/19 06:59 18:59 Intake Total 1950 Balance 1950 - Medications Medications: Current Medications Allopurinol (Zyloprim) 300 mg PO DAILY [facility] Last Admin: 01/24/19 17:26 Dose: 300 mg Amylase (Pancrease 59022 U-5000 U-31821 U) 5,000 unit PO AC [facility] Last Admin: 01/24/19 17:26 Dose: 5,000 unit Apixaban (Eliquis) 5 mg PO BID [facility]; Protocol Carvedilol (Coreg) 3.125 mg PO BID [facility] Last Admin: 01/24/19 17:26 Dose: 3.125 mg Colchicine (Colocrys) 0.6 mg PO DAILY [facility] Last Admin: 01/24/19 17:27 Dose: 0.6 mg Digoxin (Digoxin) 0.125 mg PO DAILY [facility] Last Admin: 01/24/19 09:10 Dose: 0.125 mg Famotidine (Pepcid) 20 mg IVP BID [facility] Last Admin: 01/24/19 17:26 Dose: 20 mg Hydromorphone HCl (Dilaudid) 1 mg IVP Q4H PRN PRN Reason: Pain, moderate (4-7) Last Admin: 01/25/19 07:12 Dose: 1 mg Ondansetron HCl (Zofran Inj) 4 mg IVP Q6H PRN PRN Reason: Nausea/Vomiting Last Admin: 01/24/19 05:36 Dose: 4 mg Spironolactone (Aldactone) 25 mg PO BID [facility] Last Admin: 01/24/19 17:26 Dose: 25 mg Tamsulosin HCl (Flomax) 0.4 mg PO BID [facility] Last Admin: 01/24/19 17:26 Dose: 0.4 mg - Labs Labs: 01/25/19 06:30 01/25/19 06:30 PT 14.3 SECONDS (9.4-12.5) H 01/21/19 00:10 INR 1.29 01/21/19 00:10 APTT 40.6 Seconds (26.9-38.3) H 01/21/19 00:10 - Constitutional Appears: Non-toxic, No Acute Distress - Head Exam Head Exam: NORMAL INSPECTION, NORMOCEPHALIC - Eye Exam Eye Exam: Normal appearance Pupil Exam: NORMAL ACCOMODATION - ENT Exam ENT Exam: Mucous Membranes Moist, Normal Exam - Respiratory Exam Respiratory Exam: Decreased Breath Sounds, Clear to Ausculation Bilateral, NORMAL BREATHING PATTERN - Cardiovascular Exam Cardiovascular Exam: Irregular Rhythm, +S1, +S2 Additional comments: atrial fibrillation - GI/Abdominal Exam GI & Abdominal Exam: Soft, Normal Bowel Sounds - Extremities Exam Extremities Exam: Full ROM Additional comments: trace-1+ edema - Neurological Exam Neurological Exam: Alert, Awake, Oriented x3 - Psychiatric Exam Psychiatric exam: Normal Affect, Normal Mood - Skin Skin Exam: Dry, Normal Color, Warm Assessment and Plan - Assessment and Plan (Free Text) Assessment: A 38 year old morbidly obese male who came in to the [facility] with abdominal pain and chest pain. History of CHF, non ischemic cardiomyopathy, recurrent pancreatitis, COPD, history of alcohol abuse, chronic atrial fibrillation,on Eliquis. hypertension, diabetes,peptic ulcer , nephrolithiasis, post left ureteral stent, renal insufficiency. Had history of cardiac cath 2 years ago at [facility]. Echo done on 04/2018 showed four chamber dilatation, LVEF 30-35%, cardiomyopathy, moderate MR/TR, RVSP 51 mmHg.Denies chest pain now. Troponin negative. Renal insufficiency resolved/improved. Will schedule for cardiac cath . Pain management for recurrent pancreatitis. GI on consult. Renal scan done and showed no evidence of hydronephrosis, no obstructing calculi, bilateral cortical thinning. EGD done and showed gastritis.Post cardiac catheterization yesterday and showed normal coronaries,non ischemic cardiomyopathy, LVEF 30-35% (nad injection). Medical treatment and aggressive weight reduction at least loss 50- 100 lbs. Denies chest pain or shortness of breath. Will discontinue telemetry. May discharge from cardiac standpoint. Resume Eliquis. Plan: No distress, denies shortness of breath Post cardiac cath, normal coronaries, LVEF 30-35% Cardiac status stable Blood pressure controlled Heart rate stable GI on consult Resume Eliquis for atrial fibrillation Continue current treatment GI/Renal on consult Urology on consult Discontinue telemetry Clear for discharge from cardiac standpoint Aggressive weight reduction at least 50-100 lbs. Will follow up Plan and treatment discussed with Dr. Thomson
[2019-01-25] MEDS: Amylase/Lipase/Protease 5,000 Units ECC PO SCH ×3 (09:00→17:30)
[2019-01-25 10:52] VITALS: PULSE 87
[2019-01-25] MEDS: Digoxin 125 mcg (0.125 mg) Tab PO SCH (10:52)
[2019-01-25 12:48] VITALS: BP 119/75
[2019-01-25 13:27] VITALS: PULSE 68
[2019-01-25 13:48] VITALS: O2SAT 95
--- NOTE | 2019-01-25 16:57 | PN ---
DATE: 01/25/2019 SUBJECTIVE: The patient is seen sitting in bed. He is awake, he is alert. His main concern is that he is not urinating. He reports that since Monday, he has only urinated twice. The patient is in no distress. PHYSICAL EXAMINATION GENERAL: Obese, middle-aged male sitting in bed. VITAL SIGNS: Blood pressure 119/75, heart rate 68, respiratory rate 20, temperature 98.5. HEENT: Normocephalic, atraumatic, positive pallor. NECK: Supple, no JVD. LUNGS: Bilateral equal air entry, bilateral equal expansion. CARDIAC: S1 and S2, regular rate and rhythm, no murmur, no rub. ABDOMEN: Obese, distended, soft, nontender, bowel sounds present. EXTREMITIES: No lower extremity edema. LABORATORY DATA: WBC 6.7, hemoglobin 15, hematocrit 46, platelets 290. Sodium 138, potassium 4.6, chloride 104, CO2 of 24, BUN 11, creatinine 1.4, glucose 56, calcium 9.4. CURRENT MEDICATIONS: Aldactone 25 mg b.i.d., Colcrys 0.6 mg, Coreg 3.125 mg b.i.d., digoxin 0.125 mg, Dilaudid p.r.n., Eliquis 5 mg b.i.d., Flomax 0.4 mg b.i.d., Pepcid 20 mg IV b.i.d., Zofran, allopurinol. ASSESSMENT AND PLAN 1. Resolved acute kidney injury. 2. Stable chronic kidney disease, stage II. 3. Status post dehydration secondary to nausea, vomiting and dehydration. 4. Hypertension. 5. Atrial fibrillation. 6. Voiding dysfunction? PLAN 1. Bladder scan today. 2. Continue Flomax 0.4 mg b.i.d. 3. Discussed with zackery Carrillo to discharged on Lasix 80 mg once a day instead of twice a day. 4. Needs outpatient followup. Angelica Don MD
--- NOTE | 2019-01-26 07:19 | DS ---
HISTORY OF PRESENT ILLNESS: The patient is a 38-year-old, seen and examined, came with abdominal discomfort and nausea. He had endoscopy done and was found to be unremarkable. He also had cardiac cath done that seems to be unremarkable. No coronary occlusion seen. He is eating and tolerating. No vomiting noted. No diarrhea. PHYSICAL EXAMINATION: VITAL SIGNS: He is afebrile, pulse 87, respirations 20, and blood pressure 118/79. LUNGS: Bilateral fair airflow. No rhonchi or crackles. HEART: S1 and S2 audible. ABDOMEN: Soft, obese, and nontender. No rebound. No guarding. NEUROLOGIC: The patient is awake and alert and able to communicate. EXTREMITIES: Bilateral legs, no edema. LABORATORY DATA: WBC 6.7, hemoglobin 15, hematocrit 46, and platelets 290. Chemistry; sodium 138, potassium 4.6, chloride 104, CO2 of 24, BUN 11, creatinine 1.4, and blood sugar of 84. ASSESSMENT: 1. History of recurrent pancreatitis, but currently is stable. Intractable nausea, status post endoscopy, seems to be mild gastritis, nothing to explain his epigastric discomfort. 2. Nonischemic cardiomyopathy. 3. History of nephrolithiasis, had left ureteric stent placed, but that was removed, so bladder and renal sonogram does not show any obstructing calculus or hydronephrosis. PLAN: The patient is being discharged home today. He is advised to resume his medication including spironolactone 25 twice a day, Colcrys 0.6 daily, carvedilol 3.125 twice a day, digoxin 0.125 daily, Eliquis 5 mg twice a day, and Flomax 0.4 daily. He is on pancreatic enzyme; he should be on allopurinol 300 mg daily. So, the patient is going to be discharged home today. We will give him 1 dose of Lasix prior to discharge and he will continue with Lasix 40 mg daily. He will follow up with Dr. Don and with bacteriology research assistant, Dr. Thomson. He is advised to adhere with his medications. He is advised to not smoke or drink because of his multiple medical diagnoses. I spoke to Selina, the patient's nurse. He will be given 1 dose of Lasix and then he will be discharged home today to resume all his medication as prior to admission except his Lasix has been dropped from 40 mg twice a day to 40 daily. Sammy Santiago MD [facility] # [id number]
== END 2019-01-25 18:11 | disposition home or self-care (01) | DRG 391 ==
LOC: ED 23:31 → ERH 01-21 05:09 → 2RSO 01-21 14:25
PROVIDERS: ADMIT Internal Medicine; ATTEND Internal Medicine
PROC: 0DJ08ZZ Inspection of Upper Intestinal Tract, Via Natural or Artificial Opening Endoscopic (ICD-10-PCS; principal; 2019-01-23 15:30)
PROC: 4A023N7 Measurement of Cardiac Sampling and Pressure, Left Heart, Percutaneous Approach (ICD-10-PCS; 2019-01-24)
PROC: B2151ZZ Fluoroscopy of Left Heart using Low Osmolar Contrast (ICD-10-PCS; 2019-01-24)
PROC: B2111ZZ Fluoroscopy of Multiple Coronary Arteries using Low Osmolar Contrast (ICD-10-PCS; 2019-01-24)
DX: K29.70 Gastritis, unspecified, without bleeding (principal); K85.90 Acute pancreatitis without necrosis or infection, unspecified; K57.92 Diverticulitis of intestine, part unspecified, without perforation or abscess without bleeding; N17.9 Acute kidney failure, unspecified; K86.1 Other chronic pancreatitis; I13.0 Hypertensive heart and chronic kidney disease with heart failure and stage 1 through stage 4 chronic kidney disease, or unspecified chronic kidney disease; I43 Cardiomyopathy in diseases classified elsewhere; I48.1 Persistent atrial fibrillation; F11.20 Opioid dependence, uncomplicated; Z68.43 Body mass index [BMI] 50.0-59.9, adult; I50.9 Heart failure, unspecified; R07.89 Other chest pain; E11.22 Type 2 diabetes mellitus with diabetic chronic kidney disease; N18.2 Chronic kidney disease, stage 2 (mild); I48.2 Chronic atrial fibrillation; F10.10 Alcohol abuse, uncomplicated; J44.9 Chronic obstructive pulmonary disease, unspecified; E78.5 Hyperlipidemia, unspecified; F17.200 Nicotine dependence, unspecified, uncomplicated; E66.01 Morbid (severe) obesity due to excess calories; E86.0 Dehydration; M10.9 Gout, unspecified; G89.29 Other chronic pain; R33.9 Retention of urine, unspecified; Z87.11 Personal history of peptic ulcer disease; Z79.01 Long term (current) use of anticoagulants; Z87.442 Personal history of urinary calculi